=== PATIENT | male | born 1945 | race Caucasian/White ===

== ENCOUNTER 2016-03-12 08:23 | Emergency (ER) | payer OTHER ==
[~2016-03-12] VITALS: Ht 182.9 cm; Wt 77.1 kg
[~2016-03-12 08:23] MED LIST: ASPIRIN CHILDRE81 MG PO; ASPIRIN81 M4 PO; ATORVASTATIN CA80 M1 PO; BRILINTA90 M1 PO; FLEXERIL10 MG PO; HYGROTON 25MG T25 MG PO; INSULIN PUMP; LEVEMIR100 UNIT/1 SC; LIPITOR10 M1 PO; LOSARTAN POTAS100 MG PO; MOTRIN 600 MG600 MG PO; NAPROXEN500 M2 PO; NOVOLOG100 UNIT/1; NOVOLOG100 UNIT/2 SC; PERCOCET 325 MG1 TA2 PO; TOPROL XL25 M1 PO
[2016-03-12 08:30] VITALS: BP 146/68
--- NOTE | 2016-03-12 08:34 | ED SKIN/ALLERGY COMPLAINT ---
History of Present Illness General Chief Complaint: Laceration Procedure Stated Complaint: L HAND LAC Source: patient Exam Limitations: no limitations Vital Signs & Intake/Output Vital Signs & Intake/Output Vital Signs Date Time Temp Pulse Resp B/P Pulse O2 O2 Flow FiO2 Ox Delivery Rate 03/12 0830 97.2 84 18 146/68 99 Room Air Allergies Coded Allergies: NO KNOWN ALLERGIES (12/07/15) Reconcile Medications Aspirin (Children's Aspirin) 81 MG TAB.CHEW 1 TAB PO DAILY HEART HEALTH ( Reported) Atorvastatin Calcium 10 MG TABLET 1 TAB PO AD CHOLESTEROL (Reported) Chlorthalidone (Hygroton 25MG Tablet) 25 MG TABLET 1 TAB PO DAILY BP ( Reported) Insulin Aspart (Novolog) 100 UNIT/ML CARTRIDGE DIABETES (Reported) Insulin Aspart (Novolog) 100 UNIT/ML VIAL 0 UNITS SC Q4 diabetes while NPO: Sliding scale (low dose) blood sugar less than 80 mg/dl initiate hypoglycemia 80-150 mg /dl no coverage 151-200 mg/dl no coverage 201-250 mg/dl give 2 units 251-300 mg/dl give 3 units 301-350 mg/dl give 4 units 351-400 mg/dl give 5 units more than 400 mg/dl give 6 units and call doctor Insulin Detemir (Levemir) 100 UNIT/ML VIAL 6 UNITS SC BID diabetes while NPO patient needs to be on 6 units levemir BID Losartan Potassium 100 MG TABLET 1 TAB PO DAILY HEART (Reported) Metoprolol Succ XL (Toprol XL) 25 MG TAB 1 TAB PO DAILY heart health Ticagrelor (Brilinta) 90 MG TABLET 90 MG PO BID blood thinner Triage Note: C/O SKIN TEAR TO TOP OF LEFT HAND, OCCURRED LAST NIGHT, BLEEDING ON ARRIVAL, DSG APPLIED, (FLAP TEAR NOTED) PT ON ASPIRIN. Triage Nurses Notes Reviewed? yes HPI: THIS PATIENT is a 62-year-old male with past medical history including hypertension currently on aspirin and no other blood thinners who presented to the emergency department today for evaluation of a skin tear. Patient reported that he does not know exactly how he tore the skin on the top of his left hand, but reported that he noticed the bleeding last night. He reported the bleeding has been persistent since last night. He reported a sharp and throbbing pain in the top of his hand which she rates at a 4 out of 10. The pain is nonradiating and constant. Worse with movement of his hand. No palliative factors. The patient denied any wrist pain or elbow pain. He denied any fevers or chills. (RETA JAMIL PA-C) Past History Travel History Traveled to [place] past 21 day No Medical History Any Pertinent Medical History? 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 No (RETA JAMIL PA-C) Review of Systems Review of Systems Constitutional: Reports: no symptoms. EENTM: Reports: no symptoms. Respiratory: Reports: no symptoms. Cardiovascular: Reports: no symptoms. GI: Reports: no symptoms. Musculoskeletal: Reports: no symptoms. Skin: Reports: see HPI. Neurological/Psychological: Reports: no symptoms. All Other Systems: Reviewed and Negative (RETA JAMIL PA-C) Physical Exam Physical Exam General Appearance: well developed/nourished, no apparent distress, alert, awake Comments: Well-developed well-nourished person in no acute distress HEENT: Head normocephalic, moist mucous membranes Neck: Supple, no lymphadenopathy Back: Normal gait Respiratory: No respiratory distress. Speaking in full sentences Extremities: No edema, full range of motion Neuro: Alert and oriented x3 Psych: Mood affect normal, normal memory normal judgment. Skin: Warm and dry. Approximately 2 cm in diameter skin tear with avulsion of skin flap to the dorsum of the left hand with active bleeding. No stranding erythema or edema. Mildly tender to palpation (RETA JAMIL PA-C) Progress Differential Diagnosis: abscess/cellulitis, contact dermatitis, drug reaction, erythema multiforme, SKIN LACERATION, SKIN AVULSION, SKIN TEAR Plan of Care: This patient is a 70-year-old male who presented to the emergency department today for evaluation of a skin tear to the dorsum of his left hand. Active bleeding noted in the emergency department. I irrigated this wound extensively with normal saline after a Betadine prep. Xeroform was applied to the top of the wound and a sterile dressing was applied. Darlyn was used to create a pressure dressing. Pre-and post application of Coban neurologic testing to the left hand was normal. Counseled the patient on the importance of leaving this bandage intact over the next 24 hours. Counseled him on keeping the wound site clean and dry. Did also inform the patient that he needs to loosen the dressing return to the emergency department should he experience any numbness or tingling in his hand or should he notice any color changes to his fingers. This patient will be following up with primary care physician. Bleeding controlled here in the emergency department. Stable for discharge home. (RETA JAMIL PA-C) Departure Departure Disposition: HOME OR SELF CARE Condition: Stable Clinical Impression Primary Impression: Skin tear Referrals: MELONIE LOZANO,DIAMANTE Gómez (PCP/Family) Additional Instructions: Please keep this dressing on for approximately 24 hours. You may loosen the dressing if he notices any numbness or tingling in your fingers or if your fingers began to turn colors. Please keep the wound site clean and dry. Please call to make a follow-up appointment with her primary care physician. Return to the emergency department for any worsening symptoms or concerns. Departure Forms: Customer Survey General Discharge Information (RETA JAMIL PA-C) PA/SOLUTION SPECIALIST Co-Sign Statement Statement: ED Attending supervision documentation- x I saw and evaluated the patient. I have also reviewed all the pertinent lab results and diagnostic results. I agree with the findings and the plan of care as documented in the PA's/SOLUTION SPECIALIST's documentation. [] I have reviewed the ED Record and agree with the PA's/SOLUTION SPECIALIST's documentation. [] Additions or exceptions (if any) to the PAs/SOLUTION SPECIALIST's note and plan are summarized below: [] (ZOHAIB LOZANO,CAMRON)
[2016-03-12] MEDS ORDERED: ATORVASTATIN CA10 M1 PO (08:51)
== END 2016-03-12 08:53 ==
LOC: ERH 08:23
DX: S61.412A Laceration without foreign body of left hand, initial encounter (principal); X58.XXXA Exposure to other specified factors, initial encounter
CPT/HCPCS: 99282

== ENCOUNTER 2016-03-26 15:52 | Emergency (ER) | payer OTHER ==
[~2016-03-26] VITALS: Ht 177.8 cm; Wt 78.9 kg
[~2016-03-26 15:52] MED LIST changes: +ATORVASTATIN CA10 M1 PO
--- NOTE | 2016-03-26 16:47 | RADIOLOGY REPORT ---
EXAMINATION: XR CHEST CLINICAL INFORMATION: Shortness of breath. Cough. Congestion. COMPARISON: Chest x-ray 12/07/2015 TECHNIQUE: 2 views of the chest were obtained. FINDINGS: No change in position of pacemaker leads in right atrium and right ventricle. Heart size is normal. There are calcifications of thoracic aorta. There is no pulmonary vascular congestion. Lungs are clear. No pleural effusion. No pneumothorax. Compared to prior study there is been no change. IMPRESSION: No acute abnormality of the chest.
--- NOTE | 2016-03-26 17:10 | ED DYSPNEA/ASTHMA COMPLAINT ---
History of Present Illness General Chief Complaint: Dyspnea (COPD, CHF, Other) Stated Complaint: SOB Source: patient, old records Exam Limitations: no limitations Allergies Coded Allergies: NO KNOWN ALLERGIES (12/07/15) Reconcile Medications Albuterol Sulfate (Proair Hfa) 90 MCG HFA.AER.AD 2 PUF INH Q4-6 PRN PRN DYSPNEA Aspirin (Children's Aspirin) 81 MG TAB.CHEW 1 TAB PO DAILY HEART HEALTH ( Reported) Atorvastatin Calcium 10 MG TABLET 1 TAB PO AD CHOLESTEROL (Reported) Chlorthalidone (Hygroton 25MG Tablet) 25 MG TABLET 1 TAB PO DAILY BP ( Reported) Insulin Aspart (Novolog) 100 UNIT/ML CARTRIDGE DIABETES (Reported) Insulin Aspart (Novolog) 100 UNIT/ML VIAL 0 UNITS SC Q4 diabetes while NPO: Sliding scale (low dose) blood sugar less than 80 mg/dl initiate hypoglycemia 80-150 mg /dl no coverage 151-200 mg/dl no coverage 201-250 mg/dl give 2 units 251-300 mg/dl give 3 units 301-350 mg/dl give 4 units 351-400 mg/dl give 5 units more than 400 mg/dl give 6 units and call doctor Insulin Detemir (Levemir) 100 UNIT/ML VIAL 6 UNITS SC BID diabetes while NPO patient needs to be on 6 units levemir BID Losartan Potassium 100 MG TABLET 1 TAB PO DAILY HEART (Reported) Metoprolol Succ XL (Toprol XL) 25 MG TAB 1 TAB PO DAILY heart health Ticagrelor (Brilinta) 90 MG TABLET 90 MG PO BID blood thinner Triage Note: PT TO ED WITH C/O "I'VE BEEN BATTLING A COUGH, I SAW DR WILHELM, GAVE ME ANTIBIOTICS AND COUGH MEDICINE, NOW ON ANOTHER ANITBIOTIC AMOXICILLIN, THE LAST FEW DAYS I'VE FELT SHORT OF BREATH, I HAVE AN APPT WITH THE FOR NEXT .". Triage Nurses Notes Reviewed? yes Onset: Abrupt Duration: week(s): (1), constant Timing: recent history Severity: moderate Activities at Onset: activity Prior Episodes/Possible Cause: occasional episodes Associated Symptoms: DENIES HPI: 70-year-old male type I diabetic hypertension, CAD, pacemaker, high cholesterol presents to the emergency room for evaluation complaining of a nonproductive cough associated with shortness of breath over the past few days. He's currently on a course of amoxicillin and cough medicine which he reports no improvement. He is scheduled to see his primary care physician again next week. No fever no chills no chest pain no pain with inspiration no abdominal pain nausea vomiting or diarrhea. Patient denies any modifying factors or associated symptoms no history of similar symptoms in the past, he denies any leg swelling. (AHSAN BROWNLEE) Vital Signs & Intake/Output Vital Signs & Intake/Output Vital Signs Date Time Temp Pulse Resp B/P Pulse O2 O2 Flow FiO2 Ox Delivery Rate 03/26 1939 210/96 03/26 1850 61 210/90 03/26 1850 61 16 210/90 98 Room Air 03/26 1726 98 03/26 1722 Room Air 03/26 1612 98.8 60 20 168/71 100 Room Air Room Air Past History Travel History Traveled to [place] past 21 day No Medical History Any Pertinent Medical History? 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 No (AHSAN BROWNLEE) Review of Systems Review of Systems Constitutional: Reports: see HPI. All Other Systems: Reviewed and Negative Comments Review of systems: See HPI, All other systems negative. Constitutional, no chills no fever, no malaise HEENT: No visual changes no sore throat no congestion, Cardiovascular: No chest pain , no palpitation , no orthopnea no ankle swelling Skin, no jaundice no rashes, no change in skin Respiratory: dyspnea cough no sputum no hemoptysis GI: No nausea no vomiting, no diarrhea, no bloating/constipation : No dysuria No hematuria, Muscle skeletal: No joint pain, no back pain, no neck pain, Neurologic: No numbness no headache Psych: No stress no anxiety Heme/endocrine: No bruising no bleeding Immunology: No lymphadenopathy (AHSAN BROWNLEE) Physical Exam Physical Exam General Appearance: well developed/nourished, alert, awake Respiratory: normal breath sounds, chest non-tender, no respiratory distress Comments: Well-developed well-nourished person in no acute distress HEENT: Normal EENT exam; PERRL, EOMI, HEAD is atraumatic. moist mucous membranes. Neck: Supple, normal range of motion Back: Nontender, no CVA tenderness. Full range of motion Cardiovascular: Regular rate and rhythms no murmurs rubs or gallops Respiratory: Chest nontender.There were no bony deformities, no asymmetry. No respiratory distress. Patient speaking in full complete sentences. Excellent story wheezes no rhonchi no rales Abdomen: Soft, nontender nondistended, no appreciable organomegaly. Normal bowel sounds. No rebound/guarding, No appreciable enlargement of the abdominal aorta, No ascites. Extremity: No edema, full range of motion of extremities, normal and equal pulses bilaterally, 5 out of 5 strength noted to bilateral upper and lower extremities Neuro: Alert oriented x3, motor sensory normal, There were no obvious focal neurologic abnormalities. Skin: No appreciable rash on exposed skin, skin is warm and dry. Psych: Mood and affect is normal, memory and judgment is normal. Core Measures ACS in differential dx? Yes Severe Sepsis Present: No Septic Shock Present: No (RODGER BUSH,AHSAN) Progress Differential Diagnosis: asthma, AMI, bronchitis, costochondritis, CHF, COPD, musculoskeletal pain, pericarditis, pulmonary embolism, pneumonia, pneumothorax, unstable angina Diagnostic Imaging: Viewed by Me: Radiology Read. Discussed w/RAD: Radiology Read. Radiology Impression: PATIENT: JIM WASSERMAN PRESENT AGE: 70 PATIENT ACCOUNT NO: [id number] : 47 LOCATION: [facility] ORDERING PHYSICIAN: MICHAEL HONEYCUTT (TBS) SERVICE DATE: 03/26/16 EXAM TYPE: RAD - XRY-CHEST XRAY, PA AND LATERAL EXAMINATION: XR CHEST CLINICAL INFORMATION: Shortness of breath. Cough. Congestion. COMPARISON: Chest x-ray 12/07/2015 TECHNIQUE: 2 views of the chest were obtained. FINDINGS: No change in position of pacemaker leads in right atrium and right ventricle. Heart size is normal. There are calcifications of thoracic aorta. There is no pulmonary vascular congestion. Lungs are clear. No pleural effusion. No pneumothorax. Compared to prior study there is been no change. IMPRESSION: No acute abnormality of the chest. DICTATED BY: ALEX RODRIGUEZ MD DATE/TIME DICTATED:03/26/161640 RECORDS ANALYST:INES DATE/TIME TRANSCRIBED:03/26/161640 CONFIDENTIAL, DO NOT COPY WITHOUT APPROPRIATE AUTHORIZATION. <Electronically signed in Other Vendor System> SIGNED BY: ALEX RODRIGUEZ MD 03/26/161646 Initial ED EKG: A SENSED v PACED AT 60, NO ACUTE st SEGMENT CHANGES NORMAL AXIS Prior EKG: unchanged (11/2015) Rhythm Strip: paced (AHSAN BROWNLEE) Plan of Care: Orders Procedure Date/time Status TROPONIN LEVEL 03/26 172 Complete MAGNESIUM 03/26 172 Complete COMPREHENSIVE METABOLIC PANEL 03/26 172 Complete CBC WITHOUT DIFFERENTIAL 03/26 172 Complete B-TYPE NATRIURETIC PEP (BNP) 03/26 172 Complete EKG 03/26 1554 Active Laboratory Tests 03/26/16 1800: RBC 3.92 L, MCV 92.1, MCH 30.7, RDW 14.1, MPV 8.4, Gran % 39.3 L, Lymphocytes % 43.6, Monocytes % 12.1 H, Eosinophils % 4.5, Basophils % 0.5, Absolute Granulocytes 1.2 L, Absolute Lymphocytes 1.4, Absolute Monocytes 0.4, Absolute Eosinophils 0.1, Absolute Basophils 0, PUBS MCHC 33.3 03/26/16 1727: Anion Gap 7, Estimated GFR 47 L, BUN/Creatinine Ratio 26.7 H, Glucose 260 H, Calcium 8.8, Magnesium 2.1, Total Bilirubin 0.7, AST 33, ALT 38, Alkaline Phosphatase 85, Troponin I 0.03, Ezz-X-Hvlrhzaxubg Pept 5490 H, Total Protein 6.8, Albumin 3.9, Globulin 2.9, Albumin/Globulin Ratio 1.3 Labs ordered old records reviewed DuoNeb ordered 03/26/2016 6:25:32 PM patient reports symptoms have improved with breathing treatment labs pending Case discussed with Dr. Worley 03/26/2016 6:41:21 PM patient is feeling improved ambulatory around the ER without any dyspnea. Discussed with at length all his lab results creatinine is at baseline. Chest x-ray shows no evidence of CHF I advised follow-up with his primary care physician this week he has an appointment with his production repairer scheduled for next week. Prescription for pro-air inhaler provided advised return anytime sooner if his symptoms worsen answered all his questions he feels culpable this plan cleared for discharge Upon checking the patient's vitals on discharge patient is noted to be hypertensive he stated that he did take his metoprolol this morning as normal. He states his blood pressure normally is in the 160'S SYSTOLIC. Metoprolol 25 mg by mouth ordered case discussed Dr. Meir Moralez patient remains hypertensive and it was recommended to him at that time that he receive an IVfor antihypertensive medications. The patient denies any symptoms and is refusing IV I discussed with him the harm of elevated blood pressures and the potential risks which the patient is refusing he understands the potential risks he states he will follow-up his primary care physician tomorrow morning and he will check his blood pressures at home as he normally does he will return anytime sooner if any concerns however the patient is willing to sign out AGAINST MEDICAL ADVICE at this time (AHSAN BROWNLEE) Departure Departure Time of Disposition: 1840 Disposition: LEFT AGAINST MEDICAL ADVICE Condition: Stable Clinical Impression Primary Impression: Bronchitis Referrals: MELONIE LOZANO,DIAMANTE Gómez (PCP/Family) JADIEL LOZANO,VANE Rodriguez Additional Instructions: Follow-up with your primary care physician as well as production repairer Dr. Avery this week. Pro-air inhaler as discussed. Return anytime sooner if her symptoms worsen or have any other concerns Your prescription was sent to [facility] pharmacy. Departure Forms: Customer Survey General Discharge Information Prescriptions: Current Visit Scripts Albuterol Sulfate (Proair Hfa) 2 PUF INH Q4-6 PRN PRN DYSPNEA #1 INHAL (AHSAN BROWNLEE) PA/HARDNESS TESTER Co-Sign Statement Statement: ED Attending supervision documentation- [X] I saw and evaluated the patient. I have also reviewed all the pertinent lab results and diagnostic results. I agree with the findings and the plan of care as documented in the PA's/HARDNESS TESTER's documentation. [X] I have reviewed the ED Record and agree with the PA's/HARDNESS TESTER's documentation. [] Additions or exceptions (if any) to the PAs/HARDNESS TESTER's note and plan are summarized below: [] (MEIR LOZANO,GEORG[place]NA) Critical Care Note Critical Care Note Critical Care Time: non-applicable (AHSAN BROWNLEE)
[2016-03-26 18:07] LABS: ABSOLUTE BASOPHIL COUNT 0 /CUMM (0.0-0.2); ABSOLUTE EOSINOPHIL COUNT 0.1 /CUMM (0.0-0.7); ABSOLUTE GRANULOCYTE CT 1.2 /CUMM (1.4-6.5); ABSOLUTE LYMPH COUNT 1.4 /CUMM (1.2-3.4); ABSOLUTE MONOCYTE COUNT 0.4 /CUMM (0.10-0.60); BASOPHIL % 0.5 % (0.0-2.0); EOSINOPHIL % 4.5 % (0-5); GRANULOCYTE % 39.3 % (42.2-75.2); HEMATOCRIT 36.1 % (42-52); MEAN CORPUSCULAR HGB 30.7 PG (27.0-31.0); MEAN CORPUSCULAR HGB CONC 33.3 G/DL (33.0-37.0); MEAN CORPUSCULAR VOLUME 92.1 FL (80.0-94.0); MEAN PLATELET VOLUME 8.4 FL (7.4-10.4); PLATELET COUNT 165 /CUMM (130-400); RBC DISTRIBUTION WIDTH 14.1 % (11.5-14.5); RED BLOOD CELL CT 3.92 /CUMM (4.70-6.10); WHITE BLOOD CELL COUNT 3.1 /CUMM (4.8-10.8)
[2016-03-26] MEDS ORDERED: PROAIR HFA8.5 GM INH (18:42)
[2016-03-26 19:39] VITALS: BP 210/96
== END 2016-03-26 20:00 | disposition left against medical advice (07) ==
LOC: ERH 15:52
PROVIDERS: Physician Assistant Medical
DX: J40 Bronchitis, not specified as acute or chronic (principal); Z87.891 Personal history of nicotine dependence
CPT/HCPCS: 1263; 93005; 93010

== ENCOUNTER 2016-04-04 09:34 | Emergency (ER) | payer OTHER ==
[~2016-04-04] VITALS: Ht 177.8 cm; Wt 74.8 kg
[~2016-04-04 09:34] MED LIST changes: +PROAIR HFA8.5 GM INH
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
[2016-04-04 10:50] LABS: ABSOLUTE BASOPHIL COUNT 0 /CUMM (0.0-0.2); ABSOLUTE EOSINOPHIL COUNT 0.1 /CUMM (0.0-0.7); ABSOLUTE GRANULOCYTE CT 3.9 /CUMM (1.4-6.5); ABSOLUTE LYMPH COUNT 1.3 /CUMM (1.2-3.4); ABSOLUTE MONOCYTE COUNT 0.3 /CUMM (0.10-0.60); BASOPHIL % 0.8 % (0.0-2.0); MEAN CORPUSCULAR HGB 30.9 PG (27.0-31.0); MEAN CORPUSCULAR HGB CONC 33.6 G/DL (33.0-37.0); MEAN CORPUSCULAR VOLUME 91.8 FL (80.0-94.0); MEAN PLATELET VOLUME 8.2 FL (7.4-10.4); RBC DISTRIBUTION WIDTH 14.1 % (11.5-14.5); RED BLOOD CELL CT 4.03 /CUMM (4.70-6.10); WHITE BLOOD CELL COUNT 5.6 /CUMM (4.8-10.8)
[2016-04-04 11:11] LABS: GRANULOCYTE % 69.9 % (42.2-75.2); PLATELET COUNT 285 /CUMM (130-400)
--- NOTE | 2016-04-04 11:27 | RADIOLOGY REPORT ---
EXAMINATION: XR CHEST CLINICAL INFORMATION: Shortness of breath COMPARISON: 03/26/2016, 02/19/2016 TECHNIQUE: 2 views of the chest were obtained. FINDINGS: There is a dual-lead right-sided cardiac pacemaker with leads in unchanged position. Cardiomegaly is stable. The visualized contour of the thoracic aorta appears normal with minor calcification of the arch. No consolidation is visualized. There is mild platelike opacity at the left base which may reflect some atelectasis, the hemidiaphragms are equal in height, whereas previously the right hemidiaphragm had been slightly elevated relative to the left suggesting some associated left basilar volume loss as well. No pulmonary edema, pleural effusion, or pneumothorax. There are stable mild degenerative changes of the spine without evidence of acute osseous abnormality. IMPRESSION: Platelike opacity at the left base with some volume loss most suggestive of atelectasis.
--- NOTE | 2016-04-04 13:46 | CT SCAN REPORT ---
EXAMINATION: CT ANGIOGRAM OF THE CHEST WITH AND WITHOUT CONTRAST (CT PULMONARY ANGIOGRAM FOR PE) CLINICAL INFORMATION: Shortness of breath. Assess for pulmonary embolus. COMPARISON: Chest x-ray earlier 04/04/2016. TECHNIQUE: Prior to contrast administration, noncontrast localization images were obtained. Subsequently, multidetector volumetric imaging was performed from the thoracic inlet to below the diaphragms following the administration of 128 mL Optiray 350 intravenous contrast. No contrast reaction reported Sagittal, coronal, and MIP oblique sagittal reformatted images were obtained on the CT workstation, uploaded to PACS, and reviewed. Total exam dose-length product 336.59 mGy-cm FINDINGS: QUALITY OF STUDY/CONTRAST BOLUS: Satisfactory. PULMONARY ARTERIES: There are no central pulmonary emboli. There is decreased flow in the subsegmental pulmonary arteries in the right lower lobe. THORACIC AORTA: The aortic caliber the level of the pulmonary artery is 2.8 cm. There are atheromatous calcifications at the aortic arch. There is no evidence of aneurysm or dissection. LUNG: There are air bronchograms and opacification at the left lower lobe. Debris is noted in the proximal left lower lobe bronchus. There is bronchial wall thickening in the left lower lobe. There are areas of consolidation in the left lower lobe. The right lung appears well-aerated and clear. PLEURA: No pleural effusion or pneumothorax. MEDIASTINUM: The heart is normal in size there is no pericardial effusion. There is soft tissue fullness at the left hilum (image 32/65) which may be consistent with a lymph node. There is an AP window lymph node with short axis measuring 0.7 cm (image 22/65) and there is a precarinal lymph node with short axis measurement of 0.8 cm (image 24/65). There is narrowing of the trachea and bronchi in the coronal plane, which may be consistent with tracheomalacia. CHEST WALL/AXILLA: There is a dual lead pacemaker from the right chest. There is no hilar lymphadenopathy. OSSEOUS STRUCTURES: No acute or suspicious osseous abnormality. UPPER ABDOMEN: The adrenal glands are not enlarged. IMPRESSION: 1. There is debris within the left lower lobe bronchus, and there is bronchial wall thickening in the left lower lobe. There are areas of consolidation in the left lobe. There appears to be a left hilar lymph node and there are mildly prominent precarinal and mediastinal lymph nodes. 2. There is decreased flow in the subsegmental pulmonary arteries in the left lower lobe. No discrete filling defects are demonstrated to suggest acute pulmonary emboli. 3. The findings may be consistent with an aggressive infective or infiltrative process. Recommend pulmonology assessment. 4. This critical result was discussed with Kacey Nevarez by telephone on 04/04/2016 1:40 PM and it was ascertained that the content and urgency of the report was understood at the time of direct communication.
[2016-04-04] MEDS ORDERED: AVELOX400 M1 PO (14:49)
[2016-04-04 14:53] VITALS: BP 140/77
== END 2016-04-04 14:57 ==
LOC: ERH 09:34
PROVIDERS: Physician Assistant
DX: T17.908A Unspecified foreign body in respiratory tract, part unspecified causing other injury, initial encounter (principal); R07.9 Chest pain, unspecified
CPT/HCPCS: 1263; 93005; 93010

== ENCOUNTER 2017-03-18 11:52 | Inpatient (IN) | payer OTHER ==
[~2017-03-18] VITALS: Ht 182.9 cm; Wt 79.0 kg
[~2017-03-18 11:52] MED LIST changes: +AVELOX400 M1 PO; +KEFLEX500 M1 PO
--- NOTE | 2017-03-18 12:34 | ED ANKLE/FOOT INJURY COMPLAINT ---
See Addendum History of Present Illness General Chief Complaint: Lower Extremity Problems Stated Complaint: R FOOT SWELLING Source: patient, old records Exam Limitations: no limitations Vital Signs & Intake/Output Vital Signs & Intake/Output Vital Signs Date Time Temp Pulse Resp B/P B/P Pulse O2 O2 Flow FiO2 Mean Ox Delivery Rate 03/18 1413 97.5 79 18 168/74 100 Room Air 03/18 1258 Room Air 03/18 1203 97.0 78 16 125/53 96 Room Air Allergies Coded Allergies: NO KNOWN ALLERGIES (12/07/15) Reconcile Medications Albuterol Sulfate (Proair Hfa) 90 MCG HFA.AER.AD 2 PUF INH Q4-6 PRN PRN DYSPNEA Aspirin (Children's Aspirin) 81 MG TAB.CHEW 1 TAB PO DAILY HEART HEALTH ( Reported) Atorvastatin Calcium 10 MG TABLET 1 TAB PO AD CHOLESTEROL (Reported) Cephalexin (Keflex) 500 MG CAPSULE 1 CAP PO TID cellulitis Chlorthalidone (Hygroton 25MG Tablet) 25 MG TABLET 1 TAB PO DAILY BP ( Reported) Insulin Aspart (Novolog) 100 UNIT/ML CARTRIDGE DIABETES (Reported) Losartan Potassium 100 MG TABLET 1 TAB PO DAILY HEART (Reported) Triage Note: 71M RETURNS FOR R FOOT PAIN, SEEN A FEW DAYS AGO AND PLACED ON KEFLEX. STATES THE REDNESS IS THE SAME BUT NOW HE HAS BLACK ON THE GREAT TOE. STATES HE CAN STILL FEEL THE TOE. DENIES ITCHING OR DRAINAGE. AMBULATES SLOWLY WITH A CANE. AFEBRILE Triage Nurses Notes Reviewed? yes Occurred: last week Duration: week(s): (1), constant, continues in ED, getting worse Timing: single episode today Severity: moderate, severe Severity Numbers: 1 Pain/Injury Location: Right: Foot, Ankle. Method of Injury: unknown No Modifying Factors: none Associated Symptoms: swelling, redness, numbness HPI: 71-year-old male past medical history of insulin-dependent diabetes, attention, hyperlipidemia presents for reevaluation of pain swelling and redness in his right foot. Patient states that for the past week or so he's noticed gradually worsening pain swelling and redness in his right foot. He was seen here 3 days ago and diagnosed with cellulitis and started on cephalexin. Patient states that since then the pain and swelling HAVE worsened and started to travel up his ankle to the lower leg. He also reports an area of black skin on the great toe. He reports multiple open sores on the great toe and posterior ankle. The sores have not been healing. He also states that his toes are numb. No recent surgery or known trauma. He has not had any fevers. No history of DVT. He states that he is not having any pain because he is numb. He is able to walk with a cane. He's been taking the antibiotic as directed. (Toñito Stewart) Past History Travel History Traveled to [place] past 21 day No Medical History Any Pertinent Medical History? see below for history Neurological: NONE EENT: cataracts Cardiovascular: hypertension, hyperlipidemia, Pacemaker (R) Respiratory: bronchitis Gastrointestinal: NONE Hepatic: NONE Renal: NONE Musculoskeletal: fracture Psychiatric: NONE Endocrine: diabetes type 1 Blood Disorders: NONE Cancer(s): NONE RELEASE ENGINEER/Reproductive: NONE History of MRSA: No History of VRE: No History of CDIFF: No Surgical History Surgical History: non-contributory Psychosocial History Who do you live with Patient/Self Services at Home None What is your primary language Maori Tobacco Use: Never used Family History Hx Contributory? No (Toñito Stewart) Review of Systems Review of Systems Constitutional: Reports: no symptoms. EENTM: Reports: no symptoms. Respiratory: Reports: no symptoms. Cardiovascular: Reports: no symptoms. GI: Reports: no symptoms. Genitourinary: Reports: no symptoms. Musculoskeletal: Reports: see HPI, joint pain, joint swelling. Skin: Reports: see HPI, erythema. Neurological/Psychological: Reports: no symptoms. Hematologic/Endocrine: Reports: no symptoms. Immunologic/Allergic: Reports: no symptoms. All Other Systems: Reviewed and Negative (Toñito Stewart) Physical Exam Physical Exam General Appearance: well developed/nourished, no apparent distress, alert, awake Head: atraumatic, normal appearance Eyes: Bilateral: normal appearance, PERRL, EOMI. Ears, Nose, Throat: hearing grossly normal Neck: normal inspection, supple, full range of motion Cardiovascular/Respiratory: normal breath sounds, normal peripheral pulses, regular rate/rhythm, no respiratory distress Gastrointestinal: soft nontender Back: normal inspection, normal range of motion Leg/Knee/Thigh Left: normal range of motion, normal inspection Leg/Knee/Thigh Right: normal range of motion, normal inspection Ankle Left: normal inspection, normal range of motion Ankle Right: normal range of motion, swelling Foot Left: normal inspection, normal range of motion Foot Right: tenderness, erythema, infection, limited range of motion, soft tissue tenderness, swelling, the right foot is diffusely swollen and erythematous. The right great toe is swollen with overlying hematoma. Range of motion of the foot is reduced. Sensory supply to the toes is not intact. No focal fluctuant areas. There are multiple open nonhealing ulcerations on the foot. No purulent discharge. No macerated skin in the interweb spaces. Patient is able to walk with a cane. Neuro/Vascular: normal motor function, sensory deficit (right toes) Psychiatric: awake, alert, oriented x 3 Skin: intact, normal color, warm/dry (Black PA,Toñito) Progress Differential Diagnosis: DVT, cellulitis, septic arthritis, gout, fracture, dislocation, sprain, contusion, compartmental syndrome, tinea, peripheral vascular disease, osteomyelitis, gangrene, diabetic neuropathy Plan of Care: Orders Procedure Date/time Status Consistent Carbohydrate 1 03/18 D Active URINALYSIS 03/18 1612 Active LACTIC ACID 03/18 1608 Active Pathway - chart 03/18 1606 Active Patient Data 03/18 1606 Active Code Status 03/18 1606 Active Patient Data 03/18 1520 Active ED Holding Orders 03/18 1509 Active Admit to inpatient 03/18 1509 Active Vital Signs 03/18 1509 Active Code Status 03/18 1509 Complete Intake & Output 03/18 1313 Active BLOOD CULTURE 03/18 1308 Active TROPONIN LEVEL 03/18 1308 Complete LACTIC ACID 03/18 1308 Complete WESTERGREN SED RATE 03/18 1308 Complete C-REACTIVE PROTEIN 03/18 1308 Complete COMPREHENSIVE METABOLIC PANEL 03/18 1308 Complete CBC WITHOUT DIFFERENTIAL 03/18 1308 Complete EKG 03/18 1308 Active House Staff 03/18 UNK Active Lab Add-on Test 03/18 UNK Active Wound Care/Dressing 03/18 UNK Active VTE Mechanical Prophylaxis 03/18 UNK Active Vital Signs 03/18 UNK Active Intake & Output 03/18 UNK Active Elevate 03/18 UNK Active Laboratory Tests 03/18/18 1352: Anion Gap 16, Estimated GFR > 60, BUN/Creatinine Ratio 30.9 H, Glucose 201 H, Lactic Acid 2.0, Calcium 9.0, Total Bilirubin 0.9, AST 25, ALT 40, Alkaline Phosphatase 96, Troponin I 0.06, C-Reactive Prot, Quant > 9.0 H, Total Protein 6.8, Albumin 3.8, Globulin 3.0, Albumin/Globulin Ratio 1.3, CBC w Diff MAN DIFF ORDERED, RBC 3.97 L, MCV 94.7 H, MCH 31.6 H, MCHC 33.3, RDW 13.6, MPV 9.2, Gran % 84.5 H, Lymphocytes % 7.4 L, Monocytes % 6.8, Eosinophils % 1.0, Basophils % 0.3, Absolute Granulocytes 12.4 H, Absolute Lymphocytes 1.1 L, Absolute Monocytes 1.0 H, Absolute Eosinophils 0.2, Absolute Basophils 0, Platelet Estimate VERIFIED BY SMEAR, Normocytic RBCs VERIFIED, Normochromic RBCs VERIFIED, ESR Westergren 88 H Microbiology 03/18 1358 BLOOD: Blood Culture - RECD 03/18 1350 BLOOD: Blood Culture - RECD Patient seen and evaluated. He is a poorly controlled type I diabetic. He has significant diabetic neuropathy. He has multiple nonhealing sores on the right lower extremity. The right foot is diffusely swollen and erythematous. Patient was seen here 3 days ago diagnosed with cellulitis and placed on cephalexin. However since then the redness and swelling has worsened. He has failed outpatient treatment. He has an elevated white blood cell count of 15,000 with a left shift. His CRP is significant only elevated. Patient will be started on Unasyn and IV fluids. Cultures ordered. He will require podiatry consult, endocrine consult and possibly a vascular consult. Ultrasound is negative for DVT x-ray negative for fracture or signs of obvious osteomyelitis. Case discussed with Dr. Worley she agrees. Patient does use an insulin pump. Endocrine was paged for a consult. (Joey BUSH,Toñito) PATIENT SEEN AND EVALUATED BY RACHELLE. WILL NEED ADMISSION FOR DIABETIC FOOT, IV ABX , PODIATRY CONSULTATION. (Meir LOZANO,[facility]) Diagnostic Imaging: Viewed by Me: Radiology Read, Ultrasound. Discussed w/RAD: Radiology Read, Ultrasound. Radiology Impression: PATIENT: JIM WASSERMAN PRESENT AGE: 71 PATIENT ACCOUNT NO: [id number] : 47 LOCATION: [facility] ORDERING PHYSICIAN: Toñito BUSH SERVICE DATE: 03/18/17 EXAM TYPE: RAD - XRY- FOOT COMPLETE, R EXAMINATION: XR FOOT, RIGHT CLINICAL INFORMATION: Right great toe pain and swelling and redness. Presumptive diagnosis: Osteomyelitis fracture throughout. COMPARISON: Prior images are not currently available for comparison. TECHNIQUE: AP, lateral, and oblique views of the right foot. FINDINGS: Generalized soft tissue swelling is noted in the region of the great toe distal aspect with small calcifications present. There is absence of the medial base of the distal phalanx, however the margin is well corticated with no evidence of bony destructive changes. Degenerative changes are noted in the distal interphalangeal joints throughout the digits. No cortical defects are noted throughout the bony structures of the right foot to suggest acute fracture. Bony alignment is within normal limits other than the joint space narrowing of the distal phalanges of the digits. There are heavy vascular calcifications present throughout the right foot. IMPRESSION: 1. 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 Tiny flecks of calcification are noted within the soft tissues. 2. No radiographic evidence of acute fracture is noted at this time. DICTATED BY: Suzette Gilmore MD DATE/TIME DICTATED:03/18/171339 PEANUT GRADER:INES DATE/ TIME TRANSCRIBED:03/18/171339 CONFIDENTIAL, DO NOT COPY WITHOUT APPROPRIATE AUTHORIZATION., ATIENT: JIM WASSERMAN PRESENT AGE: 71 PATIENT ACCOUNT NO: [id number] : 47 LOCATION: [facility] ORDERING PHYSICIAN: Toñito BUSH SERVICE DATE: 03/18/17 EXAM TYPE: US - US-DUPLEX VENOUS EXTREM UNI EXAMINATION: US TRIPLEX LOWER EXTREMITY, RIGHT CLINICAL INFORMATION: Right lower extremity pain and swelling. COMPARISON: None TECHNIQUE: Color-flow triplex imaging with spectral analysis and compression Doppler were performed on the lower extremity. FINDINGS: Respiratory variation, normal compression and augmented flow are noted throughout the lower extremity. The visualized common femoral vein, superficial femoral vein, profunda femoral vein, popliteal vein and midcalf peroneal and posterior tibial venous segments show no evidence of deep venous thrombosis. There is no Fair's cyst. IMPRESSION: Normal triplex scan without evidence of deep venous thrombosis involving the lower extremity. DICTATED BY: aJke Oropeza DO DATE/TIME DICTATED:03/18/171452 PEANUT GRADER:INES DATE/TIME TRANSCRIBED:03/18/171452 CONFIDENTIAL, DO NOT COPY WITHOUT APPROPRIATE AUTHORIZATION. Initial ED EKG: atrial sensed ventricular paced rhythm (Toñito Stewart) Departure Departure Disposition: STILL A PATIENT Condition: Stable Clinical Impression Primary Impression: Cellulitis Qualifiers: Site of cellulitis: extremity Site of cellulitis of extremity: lower extremity Laterality: right Qualified Code: L03.115 - Cellulitis of right lower limb Referrals: Deep LOZANO,Estuardo Gómez (PCP/Family) Departure Forms: Customer Survey General Discharge Information Admission Note Spoke With: Valeriano LOZANO,Lu Gregg Documentation of Exam: Documentation of any treatments & extenuating circumstances including Concerns Regarding Discharge (functional status, medication knowledge or non-compliance, living conditions, etc.) that warrant an admission rather than observation: [ Patient has failed outpatient antibiotics. He's been on them for 3 days and the cellulitis has continued to spread. He has an elevated white blood cell count and lactic acidosis. He will require IV antibiotics, IV fluids, infectious disease follow-up, podiatry consult, endocrine consult, vascular consult, physical therapy, serial labs, medication adjustment] (Toñito Stewart) PA/MAKE READY WORKER Co-Sign Statement Statement: ED Attending supervision documentation- [X] I saw and evaluated the patient. I have also reviewed all the pertinent lab results and diagnostic results. I agree with the findings and the plan of care as documented in the PA's/MAKE READY WORKER's documentation. [X] I have reviewed the ED Record and agree with the PA's/MAKE READY WORKER's documentation. [] Additions or exceptions (if any) to the PAs/MAKE READY WORKER's note and plan are summarized below: [] (Meir LOZANO,Melany)
--- NOTE | 2017-03-18 13:50 | RADIOLOGY REPORT ---
EXAMINATION: XR FOOT, RIGHT CLINICAL INFORMATION: Right great toe pain and swelling and redness. Presumptive diagnosis: Osteomyelitis fracture throughout. COMPARISON: Prior images are not currently available for comparison. TECHNIQUE: AP, lateral, and oblique views of the right foot. FINDINGS: Generalized soft tissue swelling is noted in the region of the great toe distal aspect with small calcifications present. There is absence of the medial base of the distal phalanx, however the margin is well corticated with no evidence of bony destructive changes. Degenerative changes are noted in the distal interphalangeal joints throughout the digits. No cortical defects are noted throughout the bony structures of the right foot to suggest acute fracture. Bony alignment is within normal limits other than the joint space narrowing of the distal phalanges of the digits. There are heavy vascular calcifications present throughout the right foot. IMPRESSION: 1. 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 Tiny flecks of calcification are noted within the soft tissues. 2. No radiographic evidence of acute fracture is noted at this time.
[2017-03-18 14:20] LABS: ABSOLUTE BASOPHIL COUNT 0 /CUMM (0.0-0.2); ABSOLUTE EOSINOPHIL COUNT 0.2 /CUMM (0.0-0.7); ABSOLUTE GRANULOCYTE CT 12.4 /CUMM (1.4-6.5); ABSOLUTE LYMPH COUNT 1.1 /CUMM (1.2-3.4); BASOPHIL % 0.3 % (0.0-2.0); GRANULOCYTE % 84.5 % (42.2-75.2); HEMATOCRIT 37.6 % (42-52); MEAN CORPUSCULAR HGB 31.6 PG (27.0-31.0); MEAN CORPUSCULAR HGB CONC 33.3 G/DL (33.0-37.0); MEAN CORPUSCULAR VOLUME 94.7 FL (80.0-94.0); MEAN PLATELET VOLUME 9.2 FL (7.4-10.4); PLATELET COUNT 263 /CUMM (130-400); RBC DISTRIBUTION WIDTH 13.6 % (11.5-14.5); RED BLOOD CELL CT 3.97 /CUMM (4.70-6.10)
[2017-03-18 14:29] LABS: WHITE BLOOD CELL COUNT 14.7 /CUMM (4.8-10.8)
--- NOTE | 2017-03-18 14:57 | ULTRASOUND REPORT ---
EXAMINATION: US TRIPLEX LOWER EXTREMITY, RIGHT CLINICAL INFORMATION: Right lower extremity pain and swelling. COMPARISON: None TECHNIQUE: Color-flow triplex imaging with spectral analysis and compression Doppler were performed on the lower extremity. FINDINGS: Respiratory variation, normal compression and augmented flow are noted throughout the lower extremity. The visualized common femoral vein, superficial femoral vein, profunda femoral vein, popliteal vein and midcalf peroneal and posterior tibial venous segments show no evidence of deep venous thrombosis. There is no Fair's cyst. IMPRESSION: Normal triplex scan without evidence of deep venous thrombosis involving the lower extremity.
--- NOTE | 2017-03-18 15:33 | Admission Certification ---
Admission Certification Certification Statement - As attending physician, I certify that at the time of - admission, based on clinical presentation, severity of - symptoms, need for further diagnostic testing and - therapeutic interventions, and risk of adverse outcomes - without in-hospital treatment, in my clinical assessment, - this patient requires an acute hospital stay for a minimum - of two nights or longer. I have also considered psychsocial - factors such as support system, advanced age, financial - issues, cognitive issues, and failed out-patient treatments, - past re-admission history, safety of patient, and lack of - compliance as applicable. Specific rationale supporting this admission is: Diabetic with cellulitis, failed oral abx
--- NOTE | 2017-03-18 15:40 | History & Physical ---
Anne Obando MD 03/18/17 1539: General Information and [facility] MD Statement: I have seen and personally examined JIM WASSERMAN and documented this H&P. The patient is a 71 year old M who presented with a patient stated chief complaint of LEFT FOOT CELLULITIS/ ESCHAR Source of Information: patient Exam Limitations: no limitations History of Present Illness: Shouldn't is a 71-year-old male with a past medical history significant for hypertension, hyperlipidemia, pacemaker placed 4-5 years ago, diabetes type 1 since he was 14 years old currently on an insulin pump that comes to us for right foot erythema, edema of 10 days duration with the development of eschar/ dark blood underneath the skin for the past 1 day. The patient states that his first issue with the foot began one month ago when he had cracked skin of the heel. The patient went to his night coordinator Dr. Hernandez whom he sees regularly for diabetic neuropathy in his feet who told him to apply Neosporin to the cracked area and they've his feet and Bactine. The patient states that after this, the cracked area began to heal and his foot looked fine until 10 days ago when he began to turn red. The patient placed a call to his night coordinator who told him to come in and see him on Thursday but before he could, on Thursday this past week, the patient came into the [place] ED instead. During that visit, he was given Keflex 500 mg by mouth twice a day and told to follow-up with his night coordinator. The patient took the medication faithfully but that erythema remained and he woke up today with black eschar/blood build up underneath the skin of his right foot medially near the big toe. He denies ever injuring his foot or anything like this ever happening before. The patient has no vascular problems in the past. He does have diabetic neuropathy with loss of sensation in his feet that has caused him balance problems in recent years to the point that he requires assistance of a walker. Patient denies fevers, chills, nausea, vomiting, acute vision changes, abdominal pain, diarrhea, constipation, urinary symptoms. He denies hospitalizations for diabetes. Patient has no history of DVT. The patient states that his sugar control lately has not been good. He measures his sugar levels 4 times daily and recently has been seeing numbers as high as 300-400. He went to see his doctor, Dr. Adame and they worked to control his sugars with his insulin pump and also a change in eating. The patient also notes that he has had a cough for about a month productive of white phlegm. He was given a referral from his PCP to see Dr. Zheng for pulmonary evaluation. The patient lives alone in an apartment. His son lives close by in [place]. He denies current smoking but did smoke in the past for about 6 years less than one PPD, denies any drinking or drugs. Family history of a mother with heart attack at age 80. No family history of diabetes although the patient has had diabetes since age 14. NKDA Primary care doctor is Dr. Adame, Manager Drive is Dr. Avery, Concession Attendant is Dr. Vargas Pharmacy is [facility] in [place]. Allergies/Medications Allergies: Coded Allergies: NO KNOWN ALLERGIES (12/07/15) Compliance With Home Meds: GOOD Past History Travel History Traveled to [place] past 21 day No Medical History Neurological: NONE EENT: cataracts Cardiovascular: hypertension, hyperlipidemia, Pacemaker (R) Respiratory: bronchitis Gastrointestinal: NONE Hepatic: NONE Renal: NONE Musculoskeletal: fracture Psychiatric: NONE Endocrine: diabetes type 1 Blood Disorders: NONE Cancer(s): NONE SYSTEMS TECHNOLOGIST/Reproductive: NONE History of MRSA: No History of VRE: No History of CDIFF: No Surgical History Surgical History: non-contributory Past Family/Social History Family History Relations & Conditions if any MOTHER Relation not specified for: FH: myocardial infarction Psychosocial History Services at Home: None Primary Language: Trinidadian Functional Ability ADLs Independent: dressing, eating, toileting, bathing. Ambulation: independent IADLs Independent: shopping, housework, finances, food prep, telephone, transportation , medication admin. Review of Systems Review of Systems Constitutional: Reports: no symptoms. EENTM: Reports: no symptoms. Cardiovascular: Reports: no symptoms. Respiratory: Reports: cough, sputum production. GI: Reports: no symptoms. Genitourinary: Reports: no symptoms, see HPI, discharge, dysuria, frequency, hematuria, hesitation, nocturia, pain, urgency. Musculoskeletal: Reports: no symptoms. Skin: Reports: erythema, lesions. Neurological/Psychological: Reports: no symptoms. Hematologic/Endocrine: Reports: no symptoms. Immunologic/Allergic: Reports: no symptoms. Exam & Diagnostic Data Last 24 Hrs of Vital Signs/I&O Vital Signs Date Time Temp Pulse Resp B/P B/P Pulse O2 O2 Flow FiO2 Mean Ox Delivery Rate 03/18 1627 97.2 88 20 176/74 98 Room Air 03/18 1413 97.5 79 18 168/74 100 Room Air 03/18 1258 Room Air 03/18 1203 97.0 78 16 125/53 96 Room Air Intake & Output 03/18 1600 03/18 0800 03/18 0000 Intake Total Output Total Balance Patient 174 lb Weight Weight Reported by Patient Measurement Method Physical Exam General Appearance Alert, Oriented X3, Cooperative, No Acute Distress Skin No Rashes, black eschar on medial aspect of the right foot near toe that extends down foot. red erythema extending up to ankle. skin crack at heel. Skin Temp/Moisture Exam: Warm/Dry Sepsis Skin Exam (color): Normal for Ethnicity HEENT Atraumatic, EOMI, Mucous Membr. moist/pink Cardiovascular Regular Rate, Normal S1, Normal S2 Lungs Clear to Auscultation, Normal Air Movement Abdomen Normal Bowel Sounds, Soft, No Tenderness Neurological Normal Speech Extremities No Clubbing, No Cyanosis, No Edema, Normal Pulses Vascular Normal Pulses, Pulses Symmetrical Last 24 Hrs of Labs/[place]: Laboratory Tests 03/18/17 1352: Anion Gap 16, Estimated GFR > 60, BUN/Creatinine Ratio 30.9 H, Glucose 201 H, Hemoglobin A1c Pending, Lactic Acid 2.0, Calcium 9.0, Total Bilirubin 0.9, AST 25, ALT 40, Alkaline Phosphatase 96, Troponin I 0.06, C-Reactive Prot, Quant > 9.0 H, Total Protein 6.8, Albumin 3.8, Globulin 3.0, Albumin/Globulin Ratio 1.3 , CBC w Diff MAN DIFF ORDERED, RBC 3.97 L, MCV 94.7 H, MCH 31.6 H, MCHC 33.3, RDW 13.6, MPV 9.2, Gran % 84.5 H, Lymphocytes % 7.4 L, Monocytes % 6.8, Eosinophils % 1.0, Basophils % 0.3, Absolute Granulocytes 12.4 H, Absolute Lymphocytes 1.1 L, Absolute Monocytes 1.0 H, Absolute Eosinophils 0.2, Absolute Basophils 0, Platelet Estimate VERIFIED BY SMEAR, Normocytic RBCs VERIFIED, Normochromic RBCs VERIFIED, ESR Westergren 88 H Microbiology 03/18 1358 BLOOD: Blood Culture - RECD 03/18 1350 BLOOD: Blood Culture - RECD Assessment/Plan Assessment: Patient is a 71-year-old male with a past medical history significant for hypertension, hyperlipidemia, pacemaker placed 4-5 years ago, diabetes type 1 since he was 14 years old currently on an insulin pump that comes to us for right foot erythema, edema of 10 days duration with the development of eschar/ dark blood underneath the skin for the past 1 day. The patient recently has had poor glucose control and has seen his primary care physician Estuardo Adame MD for better control. The patient also sees a night coordinator for his diabetic feet which have caused him balance issues in the recent years. The patient came here 5 days ago and was given Keflex and told to follow-up outpatient. However his skin issues have worsened since then. The patient also complains of one-month history of productive cough. In the ED the patient's vitals were temperature 97.5, heart rate 73, respiratory rate 16, blood pressure 125/53, 96% oxygen saturation on room air. Pertinent labs were sodium 144, potassium 4, creatinine 1.1, glucose 201, lactic acid 2.0, CRP greater than 9, WBC 14.7, hemoglobin 12.5. X-ray was done and showed no bony erosive or distractive changes. Tiny flecks of calcification in the soft tissue. No evidence of acute fracture. Venous Doppler showed no evidence of DVT. EKG was unchanged from March 2016 with a rate of 62 normal sinus rhythm deep S waves in V3. Patient was given 1 dose of Unasyn in the ED. Blood cultures 2 were taken. A repeat lactic acid was put in for 4 PM. Patient was admitted to general medicine floors for evaluation and treatment of the following: #1 cellulitis of right foot #2 uncontrolled diabetes mellitus Plan #1 cellulitis of right foot Follow blood cultures Continue Unasyn 1.5 g every 6 hours MRI of the foot tomorrow for evidence of osteomyelitis Podiatry has been consulted and has stated that he will undergo amputation on Thursday We will start the patient nothing by mouth tomorrow at midnight and adjust his insulin accordingly Vascular surgery consult for tomorrow Follow-up repeat lactic acid 4 PM #2 uncontrolled diabetes mellitus Estuardo Adame MD, his PCP and sheetmetal worker has been consulted He has stated that we should give an immediate 14 units with discontinuation of his pump one hour later. He also states that we should start 10 units twice a day starting tomorrow and sliding scale NovoLog before dinner tonight and continuing before every meal thereafter. DNR DNI CC DIET As Ranked By This Provider Problem List: 1. Cellulitis of right foot Core Measures/Misc (11/09) Acute Coronary Syndrome ACS Diagnosis: No Congestive Heart Failure Congestive Heart Failure Diagnosis No Cerebrovascular Accident CVA/TIA Diagnosis: No VTE (View Protocol) VTE Risk Factors Acute Medical Illness No Mechanical VTE Prophylaxis d/t N/A MechProphylax Ordered No VTE Pharm Prophylaxis d/t NA PharmProphylax ordered Sepsis (View protocol) Sepsis Present: No Lu Bal MD 03/18/17 1634: Attending MD Review Statement Attending Statement Attending MD Statement: examined this patient, discuss w/resident/PA/BELT PRESS OPERATOR, agreed w/resident/PA/BELT PRESS OPERATOR, reviewed EMR data (avail), reviewed images Attending Assessment/Plan: 71-year-old male fairly extensive past medical history including type 1 diabetes on an insulin pump, diabetic retinopathy and nephropathy, hypertension, hyperlipidemia, pacemaker placement and an echo done and 04/11 that revealed an EF of 45-50%. He made an ER visit on March 15 with a swollen tender erythematous right foot and was prescribed by mouth Keflex. Despite taking the by mouth antibiotics, his foot has become progressively more painful and red. He was also worried that the right great toe now has an open area with drainage and that's what prompted him to come back. His white count has gone up from 9-14,000 with a left shift, he has a lactate level of 2 and on examination of the right great toe it appears more like a hematoma with some bloody drainage rather than a true necrotic eschar area. At this point I'll bring him into Gen med, treat him with IV Unasyn ER started after blood cultures were obtained. I'll call a formal endocrine consult as we have to stop the insulin pump and transition him over to subcutaneous insulin. I 'll continue his ARB, clarify whether he is on Norvasc or not and call a podiatry consult for the possibility of debridement. His ultrasound is negative for DVT we'll put him on DVT prophylaxis and follow-up. Will also get an arterial ultrasound and a vascular evaluation for the possibility of peripheral arterial disease given diabetes, hypertension, hyperlipidemia Kym LOZANO,Pallavi 03/18/171914: General Information and HPI Allergies/Medications Home Med list Amlodipine (Norvasc) 2.5 MG TABLET 1 TAB PO DAILY HYPERTENSION (Reported) Aspirin (Children's Aspirin) 81 MG TAB.CHEW 1 TAB PO DAILY HEART HEALTH ( Reported) Atorvastatin Calcium 10 MG TABLET 1 TAB PO THURSDAY TO THURSDAY CHOLESTEROL ( Reported) Atorvastatin Calcium 10 MG TABLET 1 TAB PO AD CHOLESTEROL (Reported) Fluticasone Furoate (Flonase Sensimist) 27.5 MCG/ACTUATION SPRAY.SUSP 2 PUF NS DAILY ALLERGY (Reported) Insulin Aspart (Novolog) 100 UNIT/ML CARTRIDGE DIABETES (Reported) Losartan (Cozaar) 100 MG TABLET 1 TAB PO DAILY HYPERTENSION (Reported) Metoprolol Succ XL (Toprol XL) 25 MG TAB 1 TAB PO DAILY HYPERTENSION ( Reported) Pregabalin (Lyrica) 50 MG CAPSULE 1 CAP PO TID NEUROPATHY (Reported) Resident Review Statement Resident Statement: examined this patient, discussed with psychology intern, agreed with psychology intern, discussed with family, reviewed EMR data (avail) Other Findings: Patient is a 71 YO M with PMH significant for Type I DM (diagnosed 12yrs ago) on insulin pump follows Estuardo Adame MD, 2nd degree heart block requiring PPM follows Dr. Avery, hypertension, hyperlipidemia, and NSTEMI (EF 45-50%) presented to [facility] with progressive worsening of right lower extremity erythema with new onset discoloration. Patient has been following up with night coordinator. His last visit is 10 days ago for an open wound and started on Neosporin powder. Last Thursday patient came to ER for new onset edema around the wound, discharged on Keflex 500 3 times a day. Despite antibiotic course is erythema and swelling got worse which prompted him to come to ER today. He reports high blood sugars for the past 2 weeks, denies any weakness, fevers, nausea/vomiting/diarrhea. He denies any new-onset chest pain, shortness of breath. He had been having cough with whitish phlegm production and has been trying to go to Dr. Lloyd. He is reportedly compliant with all his medications. No known drug allergies Medications Flonase, metoprolol succinate 25 daily, Lyrica 50 mg 3 times a day, amlodipine 2.5 daily, Humalog pump, atorvastatin 10 mg Thursday to Thursday, losartan 100 mg daily. Family history - mother with CA in her 80s Social Smokes less than a pack per day, no alcohol/drug. Use Surgical noncontributory Vital signs at presentation afebrile, blood pressure 168/74 mmHg, heart rate 79, saturating well on room air Physical examination alert oriented 3, HEENT: PERRLA, no lymphadenopathy, heart S1-S2 normal, lungs clear breath sounds, abdomen nontender to palpation, lower extremities - right- sided pulses 2+, left leg edema with erythema extending up to mid left leg with discoloration in the great toe. Warm to touch with 1+ pulsations of dorsalis pedis, 2+ pulses in tibialis posterior. Labs White count 14.7 with granulocytosis, ESR 88, CRP 9, pending HbA1c and UA. Imaging venous Doppler ruled out DVT Foot x-ray did show absence of medial base of the distal phalanx of great toe which appears chronic with well-defined cortical margin. Tiny flecks of calcifications are noted within the soft tissues. Doppler arterial pending Assessment Patient is 71-year-old with chronic long-standing diabetic obligated with nephropathy, retinopathy, significant cardiac history presented with progressively worsening edema/swelling of the right lower extremity with superadded discoloration on the great toe. Vital signs are significant for blood pressure of 168/74 mmHg, afebrile. Physical examination is significant for bleeding from the right great toe, warm to touch, 1+ dorsalis pedis pulsations, no sensations in the great toe. Sensations in bilateral lower extremeties are intact (except for the right great toe). Labs today show white count is of 14 CRP 9, ESR 88 imaging ruled out DVT, pending arterial Doppler arterial and MRI of foot. EKG - HR 80, atiral sensed ventricular paced rhythm, no new changes. Differentials Cellulitis/necrotizing fasciitis/osteomyelitis Problem list 1. Cellulitis of right lower extremity in a diabetic patient status post failed outpatient antimicrobial therapy 2. Type 1 diabetes mellitus 3. Second-degree heart block status post permanent pacemaker 4. Hypertension 5. Hyperlipidemia 6. History of an NSTEMI with last echo showing EF 45-50% () 7. Chronic productive cough with whitish phlegm production in exsmoker Admitted to general medicine floor Cellulitis of right lower extremity with discoloration of great toe I think this represents worsening of infection with bleeding from his right great toe and significant necrosis of soft tissue, ? Bone involvement. Although DVT is ruled out with a negative Doppler's, I'm concerned about a peripheral artery disease in a long-standing diabetic patient. We will obtain Doppler arterial, vascular consult for further evaluation. Podiatry for debridement. We will start the patient on IV Unasyn as he already failed outpatient Keflex treatment. Follow up with blood cultures. Further evaluation with MRI of foot understand extent of necrosis/involvement of bone. I highly suspect bone involvement given his elevated ESR and CRP. Type 1 diabetes mellitus Patient is on insulin pump since long time and follows Dr. Adame (primary care physician). For the past 2 weeks he has been having high blood sugars. We will discontinue the pump after giving 14 units of Levemir stat. We will start the patient at 10 units twice a day from tomorrow onwards. Estuardo Adame MD consulted and followed the recommendations for sliding scale. History of hypertension Continue amlodipine 2.5 mg daily Diabetic neuropathy Continue Neurontin 50 mg TID History of NSTEMI with EF 45-50% Continue metoprolol succinate 25 daily, losartan 100 mg daily, aspirin 81 mg, atorvastatin 10 mg Thursday to Thursday. DVT prophylaxis Subcutaneous heparin CODE STATUS DNR/DNI
--- NOTE | 2017-03-18 17:34 | Cons- Endocrinology ---
General Information and HPI Consulting Request Date of Consult: 03/18/17 Requested By: medical team Reason for Consult: Uncontrolled diabetes type 1 Source of Information: patient, old records Exam Limitations: no limitations History of Present Illness: This 71-year-old male with a known history of diabetes type 1 and severe neuropathy into the emergency room because of a cellulitis and an infection in his right foot. He was in the emergency room yesterday and was given an antibiotic. However the foot got worse and he came back today. The patient also has turned blue as well as some irritability or on the plantar surface of his foot. His right lower leg is swollen. The patient has numbness of his feet so he does not complain of any foot pain. The patient is on the insulin pump. His midnight basal was 0.8 and his 7 AM patient was 0.9. He does not the bolus wizard. He takes 1 unit for every 50 points above 150 and 1 unit for every 10 g of carbohydrate. He does do calculations in his head. He notes that his sugars have been running high. He denies any chills nausea or vomiting. Allergies/Medications Allergies: Coded Allergies: NO KNOWN ALLERGIES (12/07/15) Home Med List: Albuterol Sulfate (Proair Hfa) 90 MCG HFA.AER.AD 2 PUF INH Q4-6 PRN PRN DYSPNEA Aspirin (Children's Aspirin) 81 MG TAB.CHEW 1 TAB PO DAILY HEART HEALTH ( Reported) Atorvastatin Calcium 10 MG TABLET 1 TAB PO AD CHOLESTEROL (Reported) Cephalexin (Keflex) 500 MG CAPSULE 1 CAP PO TID cellulitis Chlorthalidone (Hygroton 25MG Tablet) 25 MG TABLET 1 TAB PO DAILY BP ( Reported) Insulin Aspart (Novolog) 100 UNIT/ML CARTRIDGE DIABETES (Reported) Losartan Potassium 100 MG TABLET 1 TAB PO DAILY HEART (Reported) Current Medications: Current Medications Sig/Coral Start time Last Medication Dose Route Stop Time Status Admin Ampicillin Sodium/ 0 .STK-MED ONE 03/18 1447 DC Sulbactam Sodium .ROUTE Ampicillin Sodium/ 3,000 MG ONCE ONE 03/18 1430 DC 03/18 Sulbactam Sodium IV 03/18 1459 1449 Sodium Chloride 100 ML Sodium Chloride 1,000 ML BOLUS ONE 03/18 1445 DC 03/18 IV 03/18 1544 1449 Past History Travel History Traveled to [place] past 21 day No Medical History Neurological: NONE EENT: cataracts Cardiovascular: hypertension, hyperlipidemia, Pacemaker (R) Respiratory: bronchitis Gastrointestinal: NONE Hepatic: NONE Renal: NONE Musculoskeletal: fracture Psychiatric: NONE Endocrine: diabetes type 1 Blood Disorders: NONE Cancer(s): NONE 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 Ambulation: independent IADLs Independent: shopping, housework, finances, food prep, telephone, transportation , medication admin. Exam & Diagnostic Data Last 24 Hrs of Vital Signs/I&O Vital Signs Date Time Temp Pulse Resp B/P B/P Pulse O2 O2 Flow FiO2 Mean Ox Delivery Rate 03/18 1627 97.2 88 20 176/74 98 Room Air 03/18 1413 97.5 79 18 168/ 100 Room Air 03/18 1258 Room Air 03/18 1203 97.0 78 16 125/53 96 Room Air Intake & Output 03/18 1600 03/18 0800 03/18 0000 Intake Total Output Total Balance Patient 174 lb Weight Weight Reported by Patient Measurement Method Vital Signs Date Time Temp Pulse Resp B/P B/P Pulse O2 O2 Flow FiO2 Mean Ox Delivery Rate 03/18 1627 97.2 88 20 176/74 98 Room Air 03/18 1413 97.5 79 18 168/74 100 Room Air 03/18 1258 Room Air 03/18 1203 97.0 78 16 125/53 96 Room Air Intake & Output 03/18 1600 03/18 0800 03/18 0000 Intake Total Output Total Balance Patient 174 lb Weight Weight Reported by Patient Measurement Method Physical Exam General Appearance: alert, awake, comfortable Head: normal appearance Neck: normal inspection Respiratory: normal breath sounds Cardiovascular: regular rate/rhythm Gastrointestinal: soft, non-tender Extremities: right lower leg swelling. dorsum of the right foot. Swollen. The right foot. There is a cut on his right heel which appears to be healing. Labs/[place] Results: Laboratory Tests 03/18 1352 Chemistry Sodium (137 - 145 mmol/L) 144 Potassium (3.5 - 5.1 mmol/L) 4.0 Chloride (98 - 107 mmol/L) 100 Carbon Dioxide (22 - 30 mmol/L) 27 Anion Gap (5 - 16) 16 BUN (9 - 20 mg/dL) 34 H Creatinine (0.7 - 1.2 mg/dL) 1.1 Estimated GFR (>60 ml/min) > 60 BUN/Creatinine Ratio (7 - 25 %) 30.9 H Glucose (65 - 99 mg/dL) 201 H Hemoglobin A1c (4.2 - 5.8 %) Pending Lactic Acid (0.7 - 2.1 mmol/L) 2.0 Calcium (8.4 - 10.2 mg/dL) 9.0 Total Bilirubin (0.2 - 1.3 mg/dL) 0.9 AST (17 - 59 U/L) 25 ALT (21 - 72 U/L) 40 Alkaline Phosphatase (< 127 U/L) 96 Troponin I (<0.11 ng/ml) 0.06 C-Reactive Prot, Quant (<1.0 mg/dL) > 9.0 H Total Protein (6.3 - 8.2 g/dL) 6.8 Albumin (3.5 - 5.0 g/dL) 3.8 Globulin (1.9 - 4.2 gm/dL) 3.0 Albumin/Globulin Ratio (1.1 - 2.2 %) 1.3 Hematology CBC w Diff MAN DIFF ORDERED WBC (4.8 - 10.8 /CUMM) 14.7 H RBC (4.70 - 6.10 /CUMM) 3.97 L Hgb (14.0 - 18.0 G/DL) 12.5 L Hct (42 - 52 %) 37.6 L MCV (80.0 - 94.0 FL) 94.7 H MCH (27.0 - 31.0 PG) 31.6 H MCHC (33.0 - 37.0 G/DL) 33.3 RDW (11.5 - 14.5 %) 13.6 Plt Count (130 - 400 /CUMM) 263 MPV (7.4 - 10.4 FL) 9.2 Gran % (42.2 - 75.2 %) 84.5 H Lymphocytes % (20.5 - 51.1 %) 7.4 L Monocytes % (1.7 - 9.3 %) 6.8 Eosinophils % (0 - 5 %) 1.0 Basophils % (0.0 - 2.0 %) 0.3 Absolute Granulocytes (1.4 - 6.5 /CUMM) 12.4 H Absolute Lymphocytes (1.2 - 3.4 /CUMM) 1.1 L Absolute Monocytes (0.10 - 0.60 /CUMM) 1.0 H Absolute Eosinophils (0.0 - 0.7 /CUMM) 0.2 Absolute Basophils (0.0 - 0.2 /CUMM) 0 Platelet Estimate (ADEQUATE) VERIFIED BY SMEAR Normocytic RBCs VERIFIED Normochromic RBCs VERIFIED ESR Westergren (0 - 10 MM) 88 H Assessment/Plan Assessment/Plan Patient has evidence of cellulitis of the right foot with bluish discoloration of his right great toe and also discoloration on the plantar surface of his foot. He has type 1 diabetes with severe neuropathy. We need to begin Levemir 14 units stat and then 10 units twice a day beginning tomorrow. The patient should also be placed on sliding scale NovoLog before meals. Sliding scale NovoLog before meals should be 80-150 give 4 units NovoLog , 151-200 give 5 units NovoLog, 201-250 give 6 units NovoLog, 251-300 give 7 units NovoLog, 301-350 give 8 units NovoLog, 351-400 give 9 units NovoLog. A separate bedtime sliding-scale NovoLog should be written. Sliding scale NovoLog at bedtime should be less than 250 give no insulin, 251-300 give 2 units NovoLog, 301-50 give 3 units NovoLog, 351-400 give 4 units NovoLog. If the patient is made nothing by mouth tonight for surgery in the morning than we should begin D5 half-normal saline at 75 mL/h at midnight. We should also place the patient on NovoLog coverage every 4 hours while nothing by mouth. NovoLog coverage every 4 hours while nothing by mouth should be less than 150 give no insulin, 151-200 give 3 units NovoLog, 201-250 give 4 units, 251-300 give 5 units NovoLog, 301-350 give 6 units NovoLog, 351-400 give 7 units NovoLog. Consult Acknowledgment - Thank you for your consult request.
[2017-03-18] MEDS ORDERED: NORVASC2.5 M1 PO ×2 (17:35→17:36)
[2017-03-18] MEDS ORDERED: TOPROL XL25 M2 PO (17:35)
[2017-03-18] MEDS ORDERED: LYRICA50 M1 PO ×2 (17:35→17:36)
[2017-03-18] MEDS ORDERED: TOPROL XL25 M1 PO (17:36)
[2017-03-18] MEDS ORDERED: FLONASE SENSIM9.9 ML NS (17:42)
[2017-03-18] MEDS ORDERED: COZAAR100 M1 PO (17:42)
[2017-03-18] MEDS ORDERED: ATORVASTATIN CA10 M1 PO (17:44)
[2017-03-18 22:49] VITALS: BP 168/00
[2017-03-19 05:22] VITALS: BP 128/62
--- NOTE | 2017-03-19 06:59 | ULTRASOUND REPORT ---
EXAMINATION: NONINVASIVE ASSESSMENT OF THE ARTERIES OF BOTH LOWER EXTREMITIES INTERPRETING VASCULAR \T\ INTERVENTIONAL RADIOLOGIST: Tavo Albrecht MD CLINICAL INFORMATION: Diabetic foot ulcer TECHNIQUE: Bilateral lower extremity duplex ultrasound was performed with velocity measurements and waveform analysis in the common femoral arteries, profunda femoris arteries, proximal mid and distal superficial femoral arteries, popliteal arteries and tibial vessels. This study was performed only at rest. COMPARISON: CT abdomen pelvis 01/07/2016 FINDINGS: Velocities in cm/sec and phasicity as well as the presence of plaque are reported below. Bilaterally, vessels are heavily calcified and there is monophasic flow throughout both lower extremities. RIGHT LEG: Common Femoral: 229/21 Profunda Femoris: Proximal SFA: 101/17 Mid SFA: 107/21 Distal SFA: 119/2 Popliteal: 105/19 Anterior tibial: 83/19 Peroneal: 122/23 Posterior tibial: No flow Dorsalis pedis: 100/20 LEFT LEG: Common Femoral: 190/16 Profunda Femoris: 117/0 Proximal SFA: 109/12 Mid SFA: 175/12 Distal SFA: 188/13 Popliteal: 125/12 Anterior tibial: 88/4 Peroneal: 102/0 Posterior tibial: No flow Dorsalis pedis: 82/[address], heavily calcified plaque in the aorta and iliac vessels was seen but no focal stenoses are identified. The current study demonstrates some areas of velocity acceleration, for example in the common femoral arteries and mid and distal SFA on the left. Peripheral vascular disease is present as indicative by monophasic flow and occluded posterior tibial arteries. Further anatomic definition could be obtained with CT angiography. IMPRESSION: Peripheral vascular disease is present as indicative by monophasic flow and occluded posterior tibial arteries. Further anatomic definition could be obtained with CT angiography.
--- NOTE | 2017-03-19 08:13 | PN- Diabetes ---
Assessment/Plan Assessment: This patient has type 1 diabetes mellitus and presents with a cellulitis of the right foot and necrosis of the right great toe. He is somewhat confused and cannot recall accurately the events of last night. As an outpatient he was also complaining of difficulty with his memory. The patient was taken off the insulin pump last night and given 14 units of Levemir. He does not know if he ate dinner last night are if he had anything after dinner. He had low sugar this morning with a sugar of less than 50. He is on IV antibiotic Plan: Suggest reduce Levemir to 8 units twice a day today. Also revise his before meals sliding scale NovoLog. Sliding scale NovoLog before meals should be 80-150 give 3 units NovoLog, 151-200 give 4 units NovoLog , 201-250 give 5 units NovoLog, 251-300 give 6 units NovoLog, 301-350 give 7 units NovoLog, 351-400 give 8 units NovoLog. The separate bedtime sliding scale NovoLog remain as written. Objective Last 24 Hrs of Vital Signs/I&O Vital Signs Date Time Temp Pulse Resp B/P B/P Pulse O2 O2 Flow FiO2 Mean Ox Delivery Rate 03/19 521 97.9 82 20 128/62 96 Room Air 03/18 2248 Room Air 03/18 2248 98.4 80 20 168/00 92 Room Air 03/18 2230 174/03/188 20003/18 98.2 92 18 205/90 95 Room Air 03/18 2000 92 205/90 03/18 1627 97.2 88 20 176/74 98 Room Air 03/18 1413 97.5 79 18 168/74 100 Room Air 03/18 1258 Room Air 03/18 1203 97.0 78 16 125/53 96 Room Air Intake & Output 03/19 1600 03/19 0800 03/19 0000 Intake Total 960 Output Total Balance 960 Intake, Oral 960 Patient 174 lb Weight Weight Reported by Patient Measurement Method Vital Signs Date Time Temp Pulse Resp B/P B/P Pulse O2 O2 Flow FiO2 Mean Ox Delivery Rate 03/19 521 97.9 82 20 128/62 96 Room Air 03/18 2248 Room Air 03/18 2248 98.4 80 20 168/00 92 Room Air 03/18 2230 174/74 03/18 2208 200/90 01/24 2119 98.2 92 18 205/90 95 Room Air 03/18 2000 92 205/90 03/18 1627 97.2 88 20 176/74 98 Room Air 03/18 1413 97.5 79 18 168/74 100 Room Air 03/18 1258 Room Air 03/18 1203 97.0 78 16 125/53 96 Room Air Intake & Output 03/19 1600 03/19 0800 03/19 0000 Intake Total 960 Output Total Balance 960 Intake, Oral 960 Patient 174 lb Weight Weight Reported by Patient Measurement Method Physical Exam General Appearance: alert, awake, mildly confused Neck: normal inspection Cardiovascular: regular rate/rhythm Abdomen: normal bowel sounds Extremities: normal inspection Current Medications: Current Medications Sig/Coral Start time Last Medication Dose Route Stop Time Status Admin Acetaminophen 650 MG Q8P PRN 03/18 2145 AC PO Amlodipine Besylate 2.5 MG DAILY 03/18 1744 AC 03/18 PO 2000 Ampicillin Sodium/ 1,500 MG Q6 03/18 2359 AC 03/19 Sulbactam Sodium IV 0502 Sodium Chloride 100 ML Ampicillin Sodium/ 0 .STK-MED ONE 03/18 1447 CAN Sulbactam Sodium .ROUTE Ampicillin Sodium/ 3,000 MG ONCE ONE 03/18 1430 DC 03/18 Sulbactam Sodium IV 03/18 1459 1449 Sodium Chloride 100 ML Aspirin 0 .STK-MED ONE 03/18 2100 DC PO Aspirin 81 MG DAILY 03/18 1733 AC 03/18 PO 2116 Atorvastatin Calcium 10 MG 1700 03/18 1745 AC 03/18 PO 2116 Heparin Sodium 5,000 UNIT Q8 03/18 2200 AC (Porcine) SC Insulin Aspart 0 TIDAC 03/19 0800 AC SC Insulin Aspart 0 AT BEDTIME 03/18 2200 AC SC Insulin Detemir 10 UNITS BID 03/19 1000 AC SC Insulin Detemir 14 UNITS ONCE ONE 03/18 1800 DC 03/18 SC 03/18 1801 1807 Losartan Potassium 100 MG DAILY 03/19 1000 AC PO Metoprolol Succinate 25 MG DAILY 03/19 1000 AC PO Morphine Sulfate 0 .STK-MED ONE 03/18 2205 DC .ROUTE Morphine Sulfate 2 MG Q6P PRN 03/18 2200 AC 03/18 IV 2203 Pregabalin 0 .STK-MED ONE 03/18 2100 DC PO Pregabalin 50 MG TID 03/18 1737 AC 03/19 PO 0007 Sodium Chloride 1,000 ML BOLUS ONE 03/18 1445 DC 03/18 IV 03/18 1544 1449 Tramadol HCl 50 MG Q6P PRN 03/18 2145 AC PO Findings Pertinent Lab/[place] Results: Laboratory Tests 03/19 03/19 03/18 0705 0655 1608 Chemistry Sodium Pending Potassium Pending Chloride Pending Carbon Dioxide Pending Anion Gap Pending BUN Pending Creatinine Pending BUN/Creatinine Ratio Pending Lactic Acid Pending Cancelled Hematology CBC w Diff Pending WBC Pending RBC Pending Hgb Pending Hct Pending MCV Pending MCH Pending MCHC Pending RDW Pending Plt Count Pending MPV Pending 03/18 1352 Chemistry Sodium (137 - 145 mmol/L) 144 Potassium (3.5 - 5.1 mmol/L) 4.0 Chloride (98 - 107 mmol/L) 100 Carbon Dioxide (22 - 30 mmol/L) 27 Anion Gap (5 - 16) 16 BUN (9 - 20 mg/dL) 34 H Creatinine (0.7 - 1.2 mg/dL) 1.1 Estimated GFR (>60 ml/min) > 60 BUN/Creatinine Ratio (7 - 25 %) 30.9 H Glucose (65 - 99 mg/dL) 201 H Hemoglobin A1c (4.2 - 5.8 %) Pending Lactic Acid (0.7 - 2.1 mmol/L) 2.0 Calcium (8.4 - 10.2 mg/dL) 9.0 Total Bilirubin (0.2 - 1.3 mg/dL) 0.9 AST (17 - 59 U/L) 25 ALT (21 - 72 U/L) 40 Alkaline Phosphatase (< 127 U/L) 96 Troponin I (<0.11 ng/ml) 0.06 C-Reactive Prot, Quant (<1.0 mg/dL) > 9.0 H Total Protein (6.3 - 8.2 g/dL) 6.8 Albumin (3.5 - 5.0 g/dL) 3.8 Globulin (1.9 - 4.2 gm/dL) 3.0 Albumin/Globulin Ratio (1.1 - 2.2 %) 1.3 Hematology CBC w Diff MAN DIFF ORDERED WBC (4.8 - 10.8 /CUMM) 14.7 H RBC (4.70 - 6.10 /CUMM) 3.97 L Hgb (14.0 - 18.0 G/DL) 12.5 L Hct (42 - 52 %) 37.6 L MCV (80.0 - 94.0 FL) 94.7 H MCH (27.0 - 31.0 PG) 31.6 H MCHC (33.0 - 37.0 G/DL) 33.3 RDW (11.5 - 14.5 %) 13.6 Plt Count (130 - 400 /CUMM) 263 MPV (7.4 - 10.4 FL) 9.2 Gran % (42.2 - 75.2 %) 84.5 H Lymphocytes % (20.5 - 51.1 %) 7.4 L Monocytes % (1.7 - 9.3 %) 6.8 Eosinophils % (0 - 5 %) 1.0 Basophils % (0.0 - 2.0 %) 0.3 Absolute Granulocytes (1.4 - 6.5 /CUMM) 12.4 H Absolute Lymphocytes (1.2 - 3.4 /CUMM) 1.1 L Absolute Monocytes (0.10 - 0.60 /CUMM) 1.0 H Absolute Eosinophils (0.0 - 0.7 /CUMM) 0.2 Absolute Basophils (0.0 - 0.2 /CUMM) 0 Platelet Estimate (ADEQUATE) VERIFIED BY SMEAR Normocytic RBCs VERIFIED Normochromic RBCs VERIFIED ESR Westergren (0 - 10 MM) 88 H
[2017-03-19 08:30] LABS: ABSOLUTE BASOPHIL COUNT 0 /CUMM (0.0-0.2); ABSOLUTE EOSINOPHIL COUNT 0.1 /CUMM (0.0-0.7); ABSOLUTE MONOCYTE COUNT 0.9 /CUMM (0.10-0.60)
[2017-03-19 08:43] LABS: ABSOLUTE GRANULOCYTE CT 9.6 /CUMM (1.4-6.5); ABSOLUTE LYMPH COUNT 0.9 /CUMM (1.2-3.4); BASOPHIL % 0.1 % (0.0-2.0); EOSINOPHIL % 0.7 % (0-5); GRANULOCYTE % 83.8 % (42.2-75.2); MEAN CORPUSCULAR HGB 31.5 PG (27.0-31.0); MEAN CORPUSCULAR HGB CONC 33.3 G/DL (33.0-37.0); MEAN CORPUSCULAR VOLUME 94.6 FL (80.0-94.0); MEAN PLATELET VOLUME 9.2 FL (7.4-10.4); PLATELET COUNT 243 /CUMM (130-400); RBC DISTRIBUTION WIDTH 13.4 % (11.5-14.5); RED BLOOD CELL CT 3.32 /CUMM (4.70-6.10); WHITE BLOOD CELL COUNT 11.5 /CUMM (4.8-10.8)
[2017-03-19 08:49] LABS: HEMATOCRIT 31.4 % (42-52)
[2017-03-19 10:40] VITALS: BP 260/0
[2017-03-19 11:40] VITALS: BP 230/0
--- NOTE | 2017-03-19 12:08 | Event Note ---
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 Intial thoughts were to start on IV unasyn, further evlaution by vasucular surgery with arterial dopplers and amputation on thursday by . His PCP is and he is on board managing diabetes after discontinuation of pump. He was unable to recall following up with any vascular surgeon in the past during the interview yesterday. He is found to have elevated blood pressure this morning 280/00 although it is 120/80mmHg this am. I went to the patient and manually checked but unable to obtain due to lack of good peripheral pulses. After his usual BP meds including amlodipine 2.5mg, Metoprolol succinate 25mg, Losartan 100mg daily are administered it remained 230/doppler. A single dose of hydralazine IV 10mg given. EKG shows some changes compared to previous EKG - given on pacemaker cannot preclude anything. Troponin negative. Assessment 71 YO M presented with progressive cellulitis with superadded putrifaction (wet gangrene) found to have occluded popliteal arteries on arterial doppler, Now had persistent high blood pressure 230/doppler. Cardio consulted - evaluated the patient and recommended to transfer to ICU for closer monitoring. Plan transfer to ICU, start IV heparin. Stat CT angio of lower extremities and CT run off to locate the lesion site. NPO midnight for amputation tomorrow.
[2017-03-19 12:15] VITALS: BP 234/0
--- NOTE | 2017-03-19 12:34 | PN- Housestaff ---
See Addendum nAne Obando MD 03/19/17 1234: Subjective Follow-up For: RIGHT FOOT CELLULITIS AND GANGRENE PVD UNCONTROLLED DIABETES MELLITUS Subjective: PATIENT IS STILL FEELING ONLY MINIMAL PAIN SECONDARY TO HIS NEUROPATHY. HE DENIES CP SOB. Review of Systems Constitutional: Reports: chills, fever. EENTM: Reports: no symptoms. Cardiovascular: Reports: no symptoms. Respiratory: Reports: no symptoms. Gastrointestinal: Reports: no symptoms. Genitourinary: Reports: no symptoms. Musculoskeletal: Reports: see HPI. Skin: Reports: erythema, lesions. Neurological/Psychological: Reports: no symptoms. Objective Last 24 Hrs of Vital Signs/I&O Vital Signs Date Time Temp Pulse Resp B/P B/P Pulse O2 O2 Flow FiO2 Mean Ox Delivery Rate 03/19 1215 70 230/0 03/19 1048 84 260/0 03/19 1048 84 260/0 03/19 1048 84 260/0 03/19 0522 97.9 82 20 128/62 96 Room Air 03/18 2249 Room Air 03/18 2249 98.4 80 20 168/00 92 Room Air 03/18 2231 174/74 03/18 2208 200/90 03/18 2119 98.2 92 18 205/90 95 Room Air 03/18 2000 92 205/90 03/18 1627 97.2 88 20 176/74 98 Room Air 03/18 1413 97.5 79 18 168/74 100 Room Air Intake & Output 03/19 1600 03/19 0800 03/19 0000 Intake Total 960 Output Total 351 Balance -351 960 Intake, Oral 960 Output, Stool 1 Output, Urine 350 Patient 174 lb Weight Weight Reported by Patient Measurement Method Physical Exam General Appearance: Alert, Oriented X3, Cooperative, No Acute Distress Skin: No Rashes, No Breakdown, RIGHT FOOT ERYTHEMA AND BIG TOE GANGRENOUS CHANGES UNDER THE TOENAIL AND MEDIALLY UP THE FOOT. AREAS OF LEAKAGE. AREA LOOKED LAST NIGHT LIKE DARK HEMATOMA BUT TODAY THE SKIN IS MORE DRY AND LOOKS MORE LIKE GANGRENE. FOOT IS ALSO ERYTHEMATOUS. Skin Temp/Moisture Exam: Warm/Dry Sepsis Skin Exam (color): Normal for Ethnicity HEENT: Atraumatic, PERRLA, EOMI, Mucous Membr. moist/pink Cardiovascular: Regular Rate, Normal S1, Normal S2, No Murmurs Lungs: Clear to Auscultation, Normal Air Movement Abdomen: Normal Bowel Sounds, Soft, No Tenderness Neurological: Normal Speech Extremities: No Clubbing, No Cyanosis, No Edema, NO PULSES APPRECIATED IN BOTH LEGS AND FEET. Current Medications: Current Medications Sig/Coral Start time Last Medication Dose Route Stop Time Status Admin Acetaminophen 650 MG Q8P PRN 03/18 2145 AC PO Amlodipine Besylate 2.5 MG DAILY 03/18 1744 AC 03/19 PO 1048 Ampicillin Sodium/ 1,500 MG Q6 03/18 2359 AC 03/19 Sulbactam Sodium IV 0502 Sodium Chloride 100 ML Ampicillin Sodium/ 0 .STK-MED ONE 03/18 1447 CAN Sulbactam Sodium .ROUTE Ampicillin Sodium/ 3,000 MG ONCE ONE 03/18 1430 DC 03/18 Sulbactam Sodium IV 03/18 1459 1449 Sodium Chloride 100 ML Aspirin 0 .STK-MED ONE 03/18 2100 DC PO Aspirin 81 MG DAILY 03/18 1733 AC 03/19 PO 1048 Atorvastatin Calcium 10 MG 1700 03/18 1745 AC 03/18 PO 2116 Heparin Sodium 5,000 UNIT Q8 03/18 2200 AC (Porcine) SC Hydralazine HCl 10 MG ONCE ONE 03/19 1200 DC 03/19 IV 03/19 1201 1215 Insulin Aspart 5 UNITS ONCE ONE 03/19 1100 DC 03/19 SC 03/19 1101 1054 Insulin Aspart 0 TIDAC 03/19 0800 AC SC Insulin Aspart 0 AT BEDTIME 03/18 2200 AC SC Insulin Detemir 8 UNITS BID 03/19 2200 AC SC Insulin Detemir 8 UNITS ONCE ONE 03/19 1100 DC 03/19 SC 03/19 1101 1000 Insulin Detemir 10 UNITS BID 03/19 1000 DC SC Insulin Detemir 14 UNITS ONCE ONE 03/18 1800 DC 03/18 SC 03/18 1801 1807 Losartan Potassium 100 MG DAILY 03/19 1000 AC 03/19 PO 1048 Metoprolol Succinate 25 MG DAILY 03/19 1000 AC 03/19 PO 1048 Morphine Sulfate 0 .STK-MED ONE 03/18 2205 DC .ROUTE Morphine Sulfate 2 MG Q6P PRN 03/18 2200 AC 03/18 IV 2203 Pregabalin 0 .STK-MED ONE 03/18 2100 DC PO Pregabalin 50 MG TID 03/18 1737 AC 03/19 PO 1048 Sodium Chloride 1,000 ML BOLUS ONE 03/18 1445 DC 03/18 IV 03/18 1544 1449 Tramadol HCl 50 MG Q6P PRN 03/18 2145 AC PO Last 24 Hrs of Lab/[place] Results Last 24 Hrs of Labs/Mics: Laboratory Tests 03/19/17 1236: Troponin I 0.05 03/19/17 1221: Troponin I Cancelled 03/19/17 0951: Urinalysis LIGHT H, Urine Color YEL, Urine Clarity CLEAR, Urine pH 6.0, Ur Specific [place] 1.025, Urine Protein 30 H, Urine Ketones NEG, Urine Nitrite NEG, Urine Bilirubin NEG, Urine Urobilinogen 2.0 H, Ur Leukocyte Esterase NEG, Ur Microscopic SEDIMENT EXAMINED, Urine RBC 1-3, Urine WBC 1-3 H, Urine Mucus FEW, Urine Hemoglobin NEG, Urine Glucose >=1000 H 03/19/17 0705: Lactic Acid 0.8 03/19/17 0655: Anion Gap 13, Estimated GFR > 60, BUN/Creatinine Ratio 26.0 H, CBC w Diff NO MAN DIFF REQ, RBC 3.32 L, MCV 94.6 H, MCH 31.5 H, MCHC 33.3, RDW 13.4, MPV 9.2, Gran % 83.8 H, Lymphocytes % 7.5 L, Monocytes % 7.9, Eosinophils % 0.7, Basophils % 0.1, Absolute Granulocytes 9.6 H, Absolute Lymphocytes 0.9 L, Absolute Monocytes 0.9 H, Absolute Eosinophils 0.1, Absolute Basophils 0 03/18/17 1608: Lactic Acid Cancelled 03/18/17 1352: Anion Gap 16, Estimated GFR > 60, BUN/Creatinine Ratio 30.9 H, Glucose 201 H, Hemoglobin A1c 8.3 H, Lactic Acid 2.0, Calcium 9.0, Total Bilirubin 0.9, AST 25 , ALT 40, Alkaline Phosphatase 96, Troponin I 0.06, C-Reactive Prot, Quant > 9.0 H, Total Protein 6.8, Albumin 3.8, Globulin 3.0, Albumin/Globulin Ratio 1.3, CBC w Diff MAN DIFF ORDERED, RBC 3.97 L, MCV 94.7 H, MCH 31.6 H, MCHC 33.3, RDW 13.6, MPV 9.2, Gran % 84.5 H, Lymphocytes % 7.4 L, Monocytes % 6.8, Eosinophils % 1.0, Basophils % 0.3, Absolute Granulocytes 12.4 H, Absolute Lymphocytes 1.1 L, Absolute Monocytes 1.0 H, Absolute Eosinophils 0.2, Absolute Basophils 0, Platelet Estimate VERIFIED BY SMEAR, Normocytic RBCs VERIFIED, Normochromic RBCs VERIFIED, ESR [place] 88 H Microbiology 03/19 1310 UPPER RESP: Surveillance Culture - RECD 03/19 1225 GI: Surveillance Culture - COLB 03/18 1358 BLOOD: Blood Culture - RES 03/18 135 BLOOD: Blood Culture - RES Assessment/Plan Assessment: Patient is a 71-year-old male with a past medical history significant for hypertension, hyperlipidemia, pacemaker placed 4-5 years ago, SILENT GA PER SON, diabetes type 1 since he was 14 years old currently on an insulin pump, MILD COGNITIVE IMPAIRMENT WORKED UP BY DR. MORATAYA PRESUMED TO BE ONSET DEMENTIA, that comes to us for right foot erythema, edema of 10 days duration with the development of eschar/dark blood underneath the skin for the past 1 day. The patient recently has had poor glucose control and has seen his primary care physician Estuardo Adame MD for better control. The patient also sees a director of student financial aid for his diabetic feet which have caused him balance issues in the recent years. The patient came here 5 days ago and was given Keflex and told to follow-up outpatient. However his skin issues have worsened since then. The patient also complains of one-month history of productive cough. In the ED the patient's vitals were temperature 97.5, heart rate 73, respiratory rate 16, blood pressure 125/53, 96% oxygen saturation on room air. Pertinent labs were sodium 144, potassium 4, creatinine 1.1, glucose 201, lactic acid 2.0, CRP greater than 9, WBC 14.7, hemoglobin 12.5. X-ray was done and showed no bony erosive or distractive changes. Tiny flecks of calcification in the soft tissue. No evidence of acute fracture. Venous Doppler showed no evidence of DVT. EKG was unchanged from March 2016 with a rate of 62 normal sinus rhythm deep S waves in V3. Patient was admitted to general medicine floors for evaluation and treatment of the following: #1 cellulitis of right foot #2 uncontrolled diabetes mellitus -HE WAS FOUND THIS MORNING ON DUPLEX SCAN LOWER EXT TO HAVE NO FLOW IN HIS POSTERIOR TIBIAL ARTERIES AND HEAVILY CALCIFIED PLAQUE IN AORTA AND ILIAC VESSELS BUT NO FOCAL STENOSIS. -EXTREMITY VENOUS SCAN SHOWED NO DVT -REPEAT LA STILL NEGATIVE Plan #1 cellulitis of right foot Follow blood cultures Continue Unasyn 1.5 g every 6 hours SPOKE WITH [facility] LAST NIGHT WHO SAID THEY WOULD SEE THE PATIENT TODAY. THIS MORNING WE GOT RESULTS FROM DUPLEX SHOWING NO FLOW IN POSTERIOR TIBIAL ARTERIES AND PLACED CALL TWO TIMES TO VASCULAR FOR URGENT CALL BACK BUT GOT NO RESPONSE. Podiatry has been consulted and has stated that he will LIKELY UNDERGO AMPUTATION OF RIGHT BIG TOE ON THURSDAY- WAITING FOR FURTHER RECOMMENDATIONS FROM VASCULAR AND PODIATRY TODAY FOR CONFIRMATION CT WITH RUNOFF FOR BOTH EXTREMITIES TODAY #2 uncontrolled diabetes mellitus Estuardo Adame MD, his PCP and administrative tech has been consulted RECOMMENDATIONS WERE PUT IN LAST NIGHT BUT TODAY UPDATED. WE DECREASED BID LEVEMIR FROM 10 TO 8, GAVE A ONE TIME DOSE THIS MORNING OF 5, AND ADJUSTED THE INSULIN SS COVERAGE. #3 EVENT PATIENT FOUND TO HAVE NO BP READINGS ON CUFF. NO SYMPTOMS AT THE TIME. DOPPLER SHOWED AT LEAST 220 SYSTOLIC BUT WAS UNRELIABLE PROBABLY SECONDARY TO HIS PVD. WE GAVE ONE DOSE OF HYDRALAZINE AND CONTACTED DR. WYNNE WHO IS LEGAL INTERNSHIP FOR PTS NORMAL ABALONE PROCESSOR DR. DUVALL WHO SAID TO TRANSFER PATIENT TO TELE (NO BEDS SO WILL GO TO ICU), HE REVIEWED EKG, PATIENT IS PACED AND DR. WYNNE IS NOT CONCERNED WITH WHAT WE THOUGHT MAY BE ST ELEVATIONS, HE SAID HOLD OFF ON CTA CHEST FOR AORTIC DISSECTION. PATIENT CURRENTLY IN ICU FOR TELE MONITORING DNR DNI CC DIET Problem List: 1. Cellulitis of right foot 2. Peripheral vascular disease Pain Ratin Pain Location: RIGHT FOOT Pain Goal: Pain 4 or less Pain Plan: PATHWAY Tomorrow's Labs & Rationales: BEP CBC Jeff Haas 03/19/17 1315: Attending MD Review Statement Attending Statement Attending MD Statement: examined this patient, discuss w/resident/PA/MAINTENANCE AND CUSTODIAN SUPERVISOR, agreed w/resident/PA/MAINTENANCE AND CUSTODIAN SUPERVISOR, discussed with family, reviewed EMR data (avail), discussed with nursing, discussed with case mgmt, reviewed images, amended to note
[2017-03-19 16:00] VITALS: BP 166/70
--- NOTE | 2017-03-19 17:08 | Cons- Vascular Surgery ---
Puma Triplett 03/19/17 1623: General Information and HPI Consulting Request Date of Consult: 03/19/17 Requested By: True Lucas MD Reason for Consult: PAD History of Present Illness: This is a 71-year-old male with a past medical history of type 1 DM with diabetic neuropathy, HTN, HLD and second degree heart block s/p pacemaker who was admitted with right lower extremity cellulitis and wet gangrene of his right hallux. He states he developed a cut on the bottom on his heel due to new shoes one month ago. He contacted his big data hadoop developer, Dr. Hernandez who instructed him to use betadine twice daily and apply neosporin to the area. Approximately 11 days ago, he developed redness and swelling on the dorsal aspect and then developed darker discoloration with loss of sensation in his right big toe 2 days ago. He went to the ER at [facility] on Thursday and was perscribed Keflex and to follow-up with his big data hadoop developer, however when he noticed his big toe turning black he returned to the hospital for further evaluation. He denies any injury to the area or similar episodes. He was started on Unasyn and reports the area of redness has receeded since yesterday, however has not regained sensation in his big toe, which is nontender. He was transferred to the ICU for hypertension and recieved hydralazine. He states he is having surgery tomorrow to have his right big toe removed. He had a lower extremity arterial duplex today which revealed PVD with occluded posterior tibial arteries. Therefore, vascular was consulted. Allergies/Medications Allergies: Coded Allergies: NO KNOWN ALLERGIES (12/07/15) Home Med List: Amlodipine (Norvasc) 2.5 MG TABLET 1 TAB PO DAILY HYPERTENSION (Reported) Aspirin (Children's Aspirin) 81 MG TAB.CHEW 1 TAB PO DAILY HEART HEALTH ( Reported) Atorvastatin Calcium 10 MG TABLET 1 TAB PO THURSDAY TO THURSDAY CHOLESTEROL ( Reported) Atorvastatin Calcium 10 MG TABLET 1 TAB PO AD CHOLESTEROL (Reported) Fluticasone Furoate (Flonase Sensimist) 27.5 MCG/ACTUATION SPRAY.SUSP 2 PUF NS DAILY ALLERGY (Reported) Insulin Aspart (Novolog) 100 UNIT/ML CARTRIDGE DIABETES (Reported) Losartan (Cozaar) 100 MG TABLET 1 TAB PO DAILY HYPERTENSION (Reported) Metoprolol Succ XL (Toprol XL) 25 MG TAB 1 TAB PO DAILY HYPERTENSION ( Reported) Pregabalin (Lyrica) 50 MG CAPSULE 1 CAP PO TID NEUROPATHY (Reported) Current Medications: Current Medications Sig/Coral Start time Last Medication Dose Route Stop Time Status Admin Acetaminophen 650 MG Q8P PRN 03/18 2145 AC PO Amlodipine Besylate 2.5 MG DAILY 03/18 1744 AC 03/19 PO 1048 Ampicillin Sodium/ 1,500 MG Q6 03/18 2359 AC 03/19 Sulbactam Sodium IV 1345 Sodium Chloride 100 ML Ampicillin Sodium/ 0 .STK-MED ONE 03/18 1447 CAN Sulbactam Sodium .ROUTE Aspirin 0 .STK-MED ONE 03/18 2100 DC PO Aspirin 81 MG DAILY 03/18 1733 03/19 PO 1048 Atorvastatin Calcium 10 MG 1700 03/18 1745 AC 03/19 PO 1614 Heparin Sodium 5,000 UNIT Q8 03/18 2200 DC 03/19 (Porcine) SC 1344 Heparin Sodium/ 25,000 UNIT Q24H 03/19 1530 AC Dextrose IV Dextrose/Water 500 ML Hydralazine HCl 10 MG ONCE ONE 03/19 1200 DC 03/19 IV 03/19 1201 1215 Insulin Aspart 5 UNITS ONCE ONE 03/19 1100 DC 03/19 SD 03/19 1101 1054 Insulin Aspart 0 TIDAC 03/19 0800 03/19 SD 1615 Insulin Aspart 0 AT BEDTIME 03/18 2200 AC SC Insulin Detemir 8 UNITS BID 03/19 2200 AC SC Insulin Detemir 8 UNITS ONCE ONE 03/19 1100 DC 03/19 SD 03/19 1101 1000 Insulin Detemir 10 UNITS BID 03/19 1000 DC SC Insulin Detemir 14 UNITS ONCE ONE 03/18 1800 DC 03/18 SD 03/18 1801 1807 Losartan Potassium 100 MG DAILY 03/19 1000 AC 03/19 PO 1048 Metoprolol Succinate 25 MG DAILY 03/19 1000 AC 03/19 PO 1048 Morphine Sulfate 0 .STK-MED ONE 03/18 2205 DC .ROUTE Morphine Sulfate 2 MG Q6P PRN 03/18 2200 AC 03/18 IV 2203 Pregabalin 0 .STK-MED ONE 03/18 2100 DC PO Pregabalin 50 MG TID 03/18 1737 03/19 PO 1616 Sodium Chloride 1,000 ML Q10H 03/19 1530 AC 03/19 IV 1613 Tramadol HCl 50 MG Q6P PRN 03/18 2145 AC PO Past History Medical History Blood Transfusion Hx: Yes Neurological: NONE EENT: cataracts Cardiovascular: hypertension, hyperlipidemia, Pacemaker (R) Respiratory: bronchitis Gastrointestinal: NONE Hepatic: NONE Renal: NONE Musculoskeletal: fracture Psychiatric: NONE Endocrine: NONE (w/ insulin pump), diabetes type 1 Blood Disorders: NONE Cancer(s): NONE MARKET GARDENER/Reproductive: NONE Surgical History Pertinent Surgical History: pacemaker Family History Relations & Conditions If Any: MOTHER Relation not specified for: FH: myocardial infarction Psychosocial History Where Do You Live? Home Services at Home: None Primary Language: Turkmen Smoking Status: Former Smoker Functional Ability ADLs Independent: dressing, eating, toileting, bathing. Ambulation: independent IADLs Independent: shopping, housework, finances, food prep, telephone, transportation , medication admin. Exam & Diagnostic Data Vital Signs and I&O Vital Signs Date Time Temp Pulse Resp B/P B/P Pulse O2 O2 Flow FiO2 Mean Ox Delivery Rate 03/19 1521 97 Room Air 03/19 1215 70 230/0 03/19 1215 70 234/0 03/19 1140 86 230/0 03/19 1048 84 260/0 03/19 1048 84 260/0 03/19 1048 84 260/0 03/19 1040 84 260/0 03/19 0522 97.9 82 20 128/62 96 Room Air 03/18 2249 Room Air 03/18 224 98.4 80 20 168/00 92 Room Air 03/18 2231 174/74 03/18 2208 200/90 03/18 2119 98.2 92 18 205/90 95 Room Air 03/18 2000 92 205/90 Intake & Output 03/19 1600 03/19 0800 03/19 0000 03/18 1600 03/18 0800 03/18 0000 Intake Total 370 960 Output Total 351 Balance 19 960 Intake, IV 130 Intake, Oral 240 960 Output, Stool 1 Output, Urine 350 Patient 174 lb 174 lb Weight Weight Reported by Patient Reported by Patient Measurement Method Physical Exam: General - resting comfortably awake an alert in bed in NAD Cardiac - S1S2 noted Lungs - CTAB Extremitity - RLE inspected, right foot with kerlix in place, mildy saturated and removed revealing dry gangrenous hallux with marked area of erythema, receeding from the marked area with blanching, there is scant drainage in the inter digital space, foot is warm, distal extremitiy is cool and nontender to palpation, DP/PT pulses absent on exam an doppler, palpable femoral pulse redressed with kerlix, LLE with palpable femoral, PT pulses, faint DP pulse Last 24 Hours of Labs: Laboratory Tests 03/19 03/19 03/19 1236 1221 0951 Chemistry Troponin I (<0.11 ng/ml) 0.05 Cancelled Urines Urinalysis LIGHT H Urine Color (YEL,AMB,STR) YEL Urine Clarity (CLEAR) CLEAR Urine pH (5.0 - 8.0) 6.0 Ur Specific [place] (1.001 - 1.035) 1.025 Urine Protein (NEG,<30 MG/DL) 30 H Urine Ketones (NEG) NEG Urine Nitrite (NEG) NEG Urine Bilirubin (NEG) NEG Urine Urobilinogen (0.1 - 1.0 EU/dl) 2.0 H Ur Leukocyte Esterase (NEG) NEG Ur Microscopic SEDIMENT EXAMINED Urine RBC (0 - 5 /HPF) 1-3 Urine WBC (0 - 2 /HPF) 1-3 H Urine Mucus (FEW,NONE) FEW Urine Hemoglobin (NEG) NEG Urine Glucose (N MG/DL) >=1000 H 03/19 03/19 0705 0655 Chemistry Sodium (137 - 145 mmol/L) 143 Potassium (3.5 - 5.1 mmol/L) 4.1 Chloride (98 - 107 mmol/L) 104 Carbon Dioxide (22 - 30 mmol/L) 26 Anion Gap (5 - 16) 13 BUN (9 - 20 mg/dL) 26 H Creatinine (0.7 - 1.2 mg/dL) 1.0 Estimated GFR (>60 ml/min) > 60 BUN/Creatinine Ratio (7 - 25 %) 26.0 H Lactic Acid (0.7 - 2.1 mmol/L) 0.8 Hematology CBC w Diff NO MAN DIFF REQ WBC (4.8 - 10.8 /CUMM) 11.5 H RBC (4.70 - 6.10 /CUMM) 3.32 L Hgb (14.0 - 18.0 G/DL) 10.5 L Hct (42 - 52 %) 31.4 L MCV (80.0 - 94.0 FL) 94.6 H MCH (27.0 - 31.0 PG) 31.5 H MCHC (33.0 - 37.0 G/DL) 33.3 RDW (11.5 - 14.5 %) 13.4 Plt Count (130 - 400 /CUMM) 243 MPV (7.4 - 10.4 FL) 9.2 Gran % (42.2 - 75.2 %) 83.8 H Lymphocytes % (20.5 - 51.1 %) 7.5 L Monocytes % (1.7 - 9.3 %) 7.9 Eosinophils % (0 - 5 %) 0.7 Basophils % (0.0 - 2.0 %) 0.1 Absolute Granulocytes (1.4 - 6.5 /CUMM) 9.6 H Absolute Lymphocytes (1.2 - 3.4 /CUMM) 0.9 L Absolute Monocytes (0.10 - 0.60 /CUMM) 0.9 H Absolute Eosinophils (0.0 - 0.7 /CUMM) 0.1 Absolute Basophils (0.0 - 0.2 /CUMM) 0 Imaging Results: SERVICE DATE: 03/18/17- EXAM TYPE: US - US-BILAT LOW EXTR ARTERIAL DOP EXAMINATION: NONINVASIVE ASSESSMENT OF THE ARTERIES OF BOTH LOWER EXTREMITIES INTERPRETING VASCULAR \T\ INTERVENTIONAL RADIOLOGIST: Tavo Albrecht MD CLINICAL INFORMATION: Diabetic foot ulcer TECHNIQUE: Bilateral lower extremity duplex ultrasound was performed with velocity measurements and waveform analysis in the common femoral arteries, profunda femoris arteries, proximal mid and distal superficial femoral arteries, popliteal arteries and tibial vessels. This study was performed only at rest. COMPARISON: CT abdomen pelvis 01/07/2016 FINDINGS: Velocities in cm/sec and phasicity as well as the presence of plaque are reported below. Bilaterally, vessels are heavily calcified and there is monophasic flow throughout both lower extremities. RIGHT LEG: Common Femoral: 229/21 Profunda Femoris: Proximal SFA: 101/17 Mid SFA: 107/21 Distal SFA: 119/2 Popliteal: 105/19 Anterior tibial: 83/19 Peroneal: 122/23 Posterior tibial: No flow Dorsalis pedis: 100/20 LEFT LEG: Common Femoral: 190/16 Profunda Femoris: 117/0 Proximal SFA: 109/12 Mid SFA: 175/12 Distal SFA: 188/13 Popliteal: 125/12 Anterior tibial: 88/4 Peroneal: 102/0 Posterior tibial: No flow Dorsalis pedis: 82/[address], heavily calcified plaque in the aorta and iliac vessels was seen but no focal stenoses are identified. The current study demonstrates some areas of velocity acceleration, for example in the common femoral arteries and mid and distal SFA on the left. Peripheral vascular disease is present as indicative by monophasic flow and occluded posterior tibial arteries. Further anatomic definition could be obtained with CT angiography. IMPRESSION: Peripheral vascular disease is present as indicative by monophasic flow and occluded posterior tibial arteries. Further anatomic definition could be obtained with CT angiography. SERVICE DATE: 03/18/17 EXAM TYPE: RAD - XRY-FOOT COMPLETE, R EXAMINATION: XR FOOT, RIGHT CLINICAL INFORMATION: Right great toe pain and swelling and redness. Presumptive diagnosis: Osteomyelitis fracture throughout. COMPARISON: Prior images are not currently available for comparison. TECHNIQUE: AP, lateral, and oblique views of the right foot. FINDINGS: Generalized soft tissue swelling is noted in the region of the great toe distal aspect with small calcifications present. There is absence of the medial base of the distal phalanx, however the margin is well corticated with no evidence of bony destructive changes. Degenerative changes are noted in the distal interphalangeal joints throughout the digits. No cortical defects are noted throughout the bony structures of the right foot to suggest acute fracture. Bony alignment is within normal limits other than the joint space narrowing of the distal phalanges of the digits. There are heavy vascular calcifications present throughout the right foot. IMPRESSION: 1. 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 Tiny flecks of calcification are noted within the soft tissues. 2. No radiographic evidence of acute fracture is noted at this time. SERVICE DATE: 03/18/17 EXAM TYPE: US - US-DUPLEX VENOUS EXTREM UNI EXAMINATION: US TRIPLEX LOWER EXTREMITY, RIGHT CLINICAL INFORMATION: Right lower extremity pain and swelling. COMPARISON: None TECHNIQUE: Color-flow triplex imaging with spectral analysis and compression Doppler were performed on the lower extremity. FINDINGS: Respiratory variation, normal compression and augmented flow are noted throughout the lower extremity. The visualized common femoral vein, superficial femoral vein, profunda femoral vein, popliteal vein and midcalf peroneal and posterior tibial venous segments show no evidence of deep venous thrombosis. There is no Fair's cyst. IMPRESSION: Normal triplex scan without evidence of deep venous thrombosis involving the lower extremity. Assessment/Plan Assessment/Plan This is a 71 year-old male with a history of type 1 DM with diabetic neuropathy, HTN, HLD and second degree heart block s/p pacemaker who was admitted with right lower extremity cellulitis and gangrene of his right hallux with occluded posterior tibial arteries on imaging. Now on unasyn with absent right-sided PT and DP pulses an necrotic great hallux. He was transferred to the ICU for hypertensive emergency. D/w Dr. Venegas F/u CTA run off Patient may need angiogram this admission Further plan per medicine and podiatry Dr. Venegas to see later Consult Acknowledgment - Thank you for your consult request. TheoCj 03/19/17 1741: Assessment/Plan Consult Acknowledgment - Thank you for your consult request. Attending MD Review Statement Attending Statement Attending MD Statement: examined this patient, discuss w/resident/PA/GREENS PLANTER Attending Assessment/Plan: Right first toe gangrene. CTA showed patent SFA with areas of severe stenosis. PT is occluded after take off. peroneal and AT appear to be patent with diffuse atherosclerosis. Will need an angiogram which will be performed thursday if medically appropriate. Dr Moreno on board. Thank you.
--- NOTE | 2017-03-19 19:31 | Cons- Cardiology ---
General Information and HPI Consulting Request Date of Consult: 03/19/17 Requested By: True Lucas MD Reason for Consult: Uncontrolled hypertension History of Present Illness: The patient is a 71-year-old male with history of diabetes mellitus, permanent pacemaker, hypertension, and hyperlipidemia who is followed by Dr. Avery. He was admitted for cellulitis and gangrene. He is noted to have occluded posterior tibial arteries on imaging. While on the medical floor today the staff were having difficulty obtaining an accurate blood pressure. Using Doppler, blood pressure was measured at 260/0 this morning. 10 mg of IV hydralazine was given, and subsequent Doppler blood pressure measurement was 230 /0. Patient was transferred to ICU for treatment of hypertensive urgency. Upon arrival in the ICU, blood pressure was measured at 175/69 by auscultation. The most recent lipid pressure is 177/75. She reports that he is feeling well from a cardiac standpoint. No chest pain. No shortness of breath. No diaphoresis. No palpitations. No nausea vomiting. No lightheadedness or dizziness. No headaches. Allergies/Medications Allergies: Coded Allergies: NO KNOWN ALLERGIES (12/07/15) Home Med List: Amlodipine (Norvasc) 2.5 MG TABLET 1 TAB PO DAILY HYPERTENSION (Reported) Aspirin (Children's Aspirin) 81 MG TAB.CHEW 1 TAB PO DAILY HEART HEALTH ( Reported) Atorvastatin Calcium 10 MG TABLET 1 TAB PO THURSDAY TO THURSDAY CHOLESTEROL ( Reported) Atorvastatin Calcium 10 MG TABLET 1 TAB PO AD CHOLESTEROL (Reported) Fluticasone Furoate (Flonase Sensimist) 27.5 MCG/ACTUATION SPRAY.SUSP 2 PUF NS DAILY ALLERGY (Reported) Insulin Aspart (Novolog) 100 UNIT/ML CARTRIDGE DIABETES (Reported) Losartan (Cozaar) 100 MG TABLET 1 TAB PO DAILY HYPERTENSION (Reported) Metoprolol Succ XL (Toprol XL) 25 MG TAB 1 TAB PO DAILY HYPERTENSION ( Reported) Pregabalin (Lyrica) 50 MG CAPSULE 1 CAP PO TID NEUROPATHY (Reported) Current Medications: Current Medications Sig/Coral Start time Last Medication Dose Route Stop Time Status Admin Acetaminophen 650 MG Q8P PRN 03/18 2145 AC PO Amlodipine Besylate 2.5 MG DAILY 03/18 1744 AC 03/19 PO 1048 Ampicillin Sodium/ 1,500 MG Q6 03/18 2359 AC 03/19 Sulbactam Sodium IV 1743 Sodium Chloride 100 ML Ampicillin Sodium/ 0 .STK-MED ONE 03/18 1447 CAN Sulbactam Sodium .ROUTE Aspirin 0 .STK-MED ONE 03/18 2100 DC PO Aspirin 81 MG DAILY 03/18 1733 AC 03/19 PO 1048 Atorvastatin Calcium 10 MG 1700 03/18 1745 AC 03/19 PO 1614 Heparin Sodium 5,000 UNIT Q8 03/18 2200 DC 03/19 (Porcine) SC 1344 Heparin Sodium/ 25,000 UNIT Q24H 03/19 1530 AC 03/19 Dextrose IV 1800 Dextrose/Water 500 ML Hydralazine HCl 10 MG ONCE ONE 03/19 1200 DC 03/19 IV 03/19 1201 1215 Insulin Aspart 5 UNITS ONCE ONE 03/19 1100 DC 03/19 SC 03/19 1101 1054 Insulin Aspart 0 TIDAC 03/19 0800 AC 03/19 SC 1615 Insulin Aspart 0 AT BEDTIME 03/18 2200 AC SC Insulin Detemir 8 UNITS BID 03/19 2200 AC SC Insulin Detemir 8 UNITS ONCE ONE 03/19 1100 DC 03/19 SC 03/19 1101 1000 Insulin Detemir 10 UNITS BID 03/19 1000 DC SC Losartan Potassium 100 MG DAILY 03/19 1000 AC 03/19 PO 1048 Metoprolol Succinate 25 MG DAILY 03/19 1000 AC 03/19 PO 1048 Morphine Sulfate 0 .STK-MED ONE 03/18 2205 DC .ROUTE Morphine Sulfate 2 MG Q6P PRN 03/18 2200 AC 03/18 IV 2203 Pregabalin 0 .STK-MED ONE 03/18 2100 DC PO Pregabalin 50 MG TID 03/18 1737 AC 03/19 PO 1616 Sodium Chloride 1,000 ML Q10H 03/19 1530 AC 03/19 IV 1613 Tramadol HCl 50 MG Q6P PRN 03/18 2145 AC PO Review of Systems Review of Systems: No Rash. No tremor. No melena. All other systems were reviewed, and were noted to be negative. 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 Home Services at Home: None Primary Language: Romanian Smoking Status: Former Smoker Functional Ability ADLs Independent: dressing, eating, toileting, bathing. Ambulation: independent IADLs Independent: shopping, housework, finances, food prep, telephone, transportation , medication admin. Exam & Diagnostic Data Vital Signs and I&O Vital Signs Date Time Temp Pulse Resp B/P B/P Pulse O2 O2 Flow FiO2 Mean Ox Delivery Rate 03/19 1521 97 Room Air 03/19 1215 70 230/0 03/19 1215 70 234/0 03/19 1140 86 230/0 03/19 1048 84 260/0 03/19 1048 84 260/0 03/19 1048 84 260/0 03/19 1040 84 260/0 03/19 0522 97.9 82 20 128/62 96 Room Air 03/18 2249 Room Air 03/18 2249 98.4 80 20 168/00 92 Room Air 03/18 2231 174/74 03/18 2208 200/90 03/18 2119 98.2 92 18 205/90 95 Room Air 03/18 2000 92 205/90 Intake & Output 03/19 1600 03/19 0800 03/19 0000 03/18 1600 03/18 0800 03/18 0000 Intake Total 370 960 Output Total 351 Balance 19 960 Intake, IV 130 Intake, Oral 240 960 Output, Stool 1 Output, Urine 350 Patient 174 lb 174 lb Weight Weight Reported by Patient Reported by Patient Measurement Method Physical Exam: Gen: The patient is in no acute distress HEENT: Normal nose, ears, and oropharynx. Pupils equal bilaterally. Conjunctiva normal. Neck: Supple with no JVD, no masses, and no thyromegaly Lungs: Clear to auscultation with normal respiratory effort Heart: RRR, S1, S2, no murmurs. No peripheral edema, pulse nonpalpable in the right lower extremity, and decreased in the left lower extremity Abdomen: Soft, nontender, no masses. No hepatomegaly. No splenomegaly Extremities: No clubbing or cyanosis. Normal muscle strength in the upper and lower extremities Skin: Right foot erythema. Normal skin turgor. Neuro: Cranial nerves intact. Sensation intact Psych: Alert and oriented 3 with appropriate affect Labs/Fransisco Results: Laboratory Tests 03/19 03/19 03/19 1236 1221 0951 Chemistry Troponin I (<0.11 ng/ml) 0.05 Cancelled Urines Urinalysis LIGHT H Urine Color (YEL,AMB,STR) YEL Urine Clarity (CLEAR) CLEAR Urine pH (5.0 - 8.0) 6.0 Ur Specific [place] (1.001 - 1.035) 1.025 Urine Protein (NEG,<30 MG/DL) 30 H Urine Ketones (NEG) NEG Urine Nitrite (NEG) NEG Urine Bilirubin (NEG) NEG Urine Urobilinogen (0.1 - 1.0 EU/dl) 2.0 H Ur Leukocyte Esterase (NEG) NEG Ur Microscopic SEDIMENT EXAMINED Urine RBC (0 - 5 /HPF) 1-3 Urine WBC (0 - 2 /HPF) 1-3 H Urine Mucus (FEW,NONE) FEW Urine Hemoglobin (NEG) NEG Urine Glucose (N MG/DL) >=1000 H 03/19 03/19 03/18 0705 0655 1608 Chemistry Sodium (137 - 145 mmol/L) 143 Potassium (3.5 - 5.1 mmol/L) 4.1 Chloride (98 - 107 mmol/L) 104 Carbon Dioxide (22 - 30 mmol/L) 26 Anion Gap (5 - 16) 13 BUN (9 - 20 mg/dL) 26 H Creatinine (0.7 - 1.2 mg/dL) 1.0 Estimated GFR (>60 ml/min) > 60 BUN/Creatinine Ratio (7 - 25 %) 26.0 H Lactic Acid (0.7 - 2.1 mmol/L) 0.8 Cancelled Hematology CBC w Diff NO MAN DIFF REQ WBC (4.8 - 10.8 /CUMM) 11.5 H RBC (4.70 - 6.10 /CUMM) 3.32 L Hgb (14.0 - 18.0 G/DL) 10.5 L Hct (42 - 52 %) 31.4 L MCV (80.0 - 94.0 FL) 94.6 H MCH (27.0 - 31.0 PG) 31.5 H MCHC (33.0 - 37.0 G/DL) 33.3 RDW (11.5 - 14.5 %) 13.4 Plt Count (130 - 400 /CUMM) 243 MPV (7.4 - 10.4 FL) 9.2 Gran % (42.2 - 75.2 %) 83.8 H Lymphocytes % (20.5 - 51.1 %) 7.5 L Monocytes % (1.7 - 9.3 %) 7.9 Eosinophils % (0 - 5 %) 0.7 Basophils % (0.0 - 2.0 %) 0.1 Absolute Granulocytes (1.4 - 6.5 /CUMM) 9.6 H Absolute Lymphocytes (1.2 - 3.4 /CUMM) 0.9 L Absolute Monocytes (0.10 - 0.60 /CUMM) 0.9 H Absolute Eosinophils (0.0 - 0.7 /CUMM) 0.1 Absolute Basophils (0.0 - 0.2 /CUMM) 0 03/18 1352 Chemistry Sodium (137 - 145 mmol/L) 144 Potassium (3.5 - 5.1 mmol/L) 4.0 Chloride (98 - 107 mmol/L) 100 Carbon Dioxide (22 - 30 mmol/L) 27 Anion Gap (5 - 16) 16 BUN (9 - 20 mg/dL) 34 H Creatinine (0.7 - 1.2 mg/dL) 1.1 Estimated GFR (>60 ml/min) > 60 BUN/Creatinine Ratio (7 - 25 %) 30.9 H Glucose (65 - 99 mg/dL) 201 H Hemoglobin A1c (4.2 - 5.8 %) 8.3 H Lactic Acid (0.7 - 2.1 mmol/L) 2.0 Calcium (8.4 - 10.2 mg/dL) 9.0 Total Bilirubin (0.2 - 1.3 mg/dL) 0.9 AST (17 - 59 U/L) 25 ALT (21 - 72 U/L) 40 Alkaline Phosphatase (< 127 U/L) 96 Troponin I (<0.11 ng/ml) 0.06 C-Reactive Prot, Quant (<1.0 mg/dL) > 9.0 H Total Protein (6.3 - 8.2 g/dL) 6.8 Albumin (3.5 - 5.0 g/dL) 3.8 Globulin (1.9 - 4.2 gm/dL) 3.0 Albumin/Globulin Ratio (1.1 - 2.2 %) 1.3 Hematology CBC w Diff MAN DIFF ORDERED WBC (4.8 - 10.8 /CUMM) 14.7 H RBC (4.70 - 6.10 /CUMM) 3.97 L Hgb (14.0 - 18.0 G/DL) 12.5 L Hct (42 - 52 %) 37.6 L MCV (80.0 - 94.0 FL) 94.7 H MCH (27.0 - 31.0 PG) 31.6 H MCHC (33.0 - 37.0 G/DL) 33.3 RDW (11.5 - 14.5 %) 13.6 Plt Count (130 - 400 /CUMM) 263 MPV (7.4 - 10.4 FL) 9.2 Gran % (42.2 - 75.2 %) 84.5 H Lymphocytes % (20.5 - 51.1 %) 7.4 L Monocytes % (1.7 - 9.3 %) 6.8 Eosinophils % (0 - 5 %) 1.0 Basophils % (0.0 - 2.0 %) 0.3 Absolute Granulocytes (1.4 - 6.5 /CUMM) 12.4 H Absolute Lymphocytes (1.2 - 3.4 /CUMM) 1.1 L Absolute Monocytes (0.10 - 0.60 /CUMM) 1.0 H Absolute Eosinophils (0.0 - 0.7 /CUMM) 0.2 Absolute Basophils (0.0 - 0.2 /CUMM) 0 Platelet Estimate (ADEQUATE) VERIFIED BY SMEAR Normocytic RBCs VERIFIED Normochromic RBCs VERIFIED ESR Westergren (0 - 10 MM) 88 H Diagnostic Data EKG Results EKG tracing independently reviewed, and reveals sinus rhythm with ventricular pacing Other Results Echocardiogram 04/09/16: Mild left ventricular dilatation. Normal left ventricular wall thickness. Left ventricular ejection fraction is estimated at 45-50 %. Abnormal relaxation filling pattern of the left ventricle for age (stage 1 diastolic dysfunction). Catheter/pacemaker wire in the right ventricular cavity. Catheter/pacemaker wire in the right atrial appendage. Mild to moderate left atrial dilatation. There is moderate thickening of the mitral valve leaflets and moderate calcification of the mitral annulus. Focal thickening of the aortic valve cusps. No aortic stenosis. Right ventricular systolic pressure estimated to be elevated at 45 mmHg. Right lower extremity Doppler study: Normal triplex scan without evidence of deep venous thrombosis involving the lower extremity. Arterial u/s of the lower extremities: Peripheral vascular disease is present as indicative by monophasic flow and occluded posterior tibial arteries. Further anatomic definition could be obtained with CT angiography. Assessment/Plan Assessment/Plan The patient is 71-year-old female with history of permanent pacemaker, diabetes mellitus, and peripheral arterial disease. He is not known to have any history of coronary artery disease. He is admitted with right lower extremity cellulitis and gangrene. He is noted to have occluded posterior tibial arteries on imaging. Blood pressure was noted to be 260/0 followed by 230/0, however these readings were obtained with difficulty using Doppler. After treatment with IV hydralazine and transferred to ICU, blood pressure is now 177/75 by auscultation. Recommendations: * Continue losartan 100 mg daily * Would give additional 2.5 mg of amlodipine now, and increase to 5 mg daily starting tomorrow * Further doses of IV hydralazine may be given as needed if the patient develops recurrence of severely elevated blood pressure readings Consult Acknowledgment - Thank you for your consult request.
--- NOTE | 2017-03-19 23:22 | CT SCAN REPORT ---
EXAMINATION: CT HEAD WITHOUT CONTRAST CLINICAL INFORMATION: Altered mental status. COMPARISON: None. TECHNIQUE: Contiguous helical images of the brain were obtained without IV contrast. Multiplanar reconstructions were performed. DLP: 619 mGy-cm. FINDINGS: There are no pathologic extra-axial fluid collections. The lateral, third, fourth ventricles are prominent, though age-appropriate and concordant with the appearance of the sulci. There is no evidence for acute intraparenchymal hemorrhage or infarct. There is neither mass nor mass effect. There is no shift of midline structures. The paranasal sinuses and mastoid air cells are clear. There are no osseous lesions. IMPRESSION: No evidence for acute intracranial injury.
[2017-03-20] VITALS: BP 198/00
[2017-03-20 00:29] LABS: PTT 47 SEC (25-37)
--- NOTE | 2017-03-20 01:31 | RADIOLOGY REPORT ---
EXAMINATION: XR PORTABLE CHEST CLINICAL INFORMATION: Shortness of breath, rule out fluid overload COMPARISON: CT 03/13/2017 TECHNIQUE: Portable frontal view of the chest was obtained. FINDINGS: Right-sided dual lead pacemaker again demonstrated; the right ventricular lead is not well delineated, likely due to motion artifact. Volumes are symmetric. There is diffusely increased prominence of the interstitium, suspicious for interstitial edema. No focal consolidation is seen. No significant pleural effusion. No appreciable pneumothorax. The cardiac silhouette remains prominent. No acute osseous findings are seen. IMPRESSION: Diffusely increased interstitial prominence suspicious for interstitial edema.
[2017-03-20 05:58] LABS: ABSOLUTE BASOPHIL COUNT 0 /CUMM (0.0-0.2); ABSOLUTE EOSINOPHIL COUNT 0 /CUMM (0.0-0.7); ABSOLUTE GRANULOCYTE CT 14.1 /CUMM (1.4-6.5); ABSOLUTE LYMPH COUNT 0.9 /CUMM (1.2-3.4); BASOPHIL % 0.1 % (0.0-2.0); EOSINOPHIL % 0.1 % (0-5); MEAN PLATELET VOLUME 9.1 FL (7.4-10.4)
[2017-03-20 06:00] LABS: PTT 73 SEC (25-37)
[2017-03-20 06:11] LABS: ABSOLUTE MONOCYTE COUNT 0.8 /CUMM (0.10-0.60); GRANULOCYTE % 89.4 % (42.2-75.2); MEAN CORPUSCULAR HGB 31.5 PG (27.0-31.0); MEAN CORPUSCULAR HGB CONC 33.5 G/DL (33.0-37.0); PLATELET COUNT 324 /CUMM (130-400); RBC DISTRIBUTION WIDTH 13.5 % (11.5-14.5); WHITE BLOOD CELL COUNT 15.7 /CUMM (4.8-10.8)
[2017-03-20 06:25] LABS: HEMATOCRIT 36.7 % (42-52)
--- NOTE | 2017-03-20 07:34 | Cons- CRCU ---
Estefani LOZANO,[facility] 03/20/17 0734: General Information and HPI Consulting Request Date of Consult: 03/20/17 Requested By: Dr Anne Obando Reason for Consult: Hypertensive urgency Source of Information: patient, family, old records Exam Limitations: no limitations History of Present Illness: 71-year-old male with a past medical history significant for hypertension, hyperlipidemia, pacemaker placed 4-5 years ago, diabetes type 1 since he was 14 years old managed on an insulin pump at home was admitted to the medical floor for treatment of cellulitis and right toe gangrene. Yesterday, the nursing staff had difficulty obtaining manual blood pressure and found it to be 260/0 systolic. He was administered one dose of IV hydralazine 10mg and transferred to the intensive care for further monitoring. The patient however had been asymptomatic. He did report any chest pain, SOB, palpitations or any other associated symptoms. His troponins have been negative. His imaging does not show any evidence of DVT but does demonstrate PVD with occluded posterior tibial arteries. Overnight he was administered total 40mg IV lasix as he was found to have crackles on exam with CXR showing interestitial edema. This morning the patient is alert, awake, oriented x2 but delirious. He believes he has an outpatient appointment with Dr Moreno which he cannot miss. The son is present with the patient today who informs that the patient has some baseline memory loss and dementia. Allergies/Medications Allergies: Coded Allergies: NO KNOWN ALLERGIES (12/07/15) Home Med List: Amlodipine (Norvasc) 2.5 MG TABLET 1 TAB PO DAILY HYPERTENSION (Reported) Aspirin (Children's Aspirin) 81 MG TAB.CHEW 1 TAB PO DAILY HEART HEALTH ( Reported) Atorvastatin Calcium 10 MG TABLET 1 TAB PO THURSDAY TO THURSDAY CHOLESTEROL ( Reported) Atorvastatin Calcium 10 MG TABLET 1 TAB PO AD CHOLESTEROL (Reported) Fluticasone Furoate (Flonase Sensimist) 27.5 MCG/ACTUATION SPRAY.SUSP 2 PUF NS DAILY ALLERGY (Reported) Insulin Aspart (Novolog) 100 UNIT/ML CARTRIDGE DIABETES (Reported) Losartan (Cozaar) 100 MG TABLET 1 TAB PO DAILY HYPERTENSION (Reported) Metoprolol Succ XL (Toprol XL) 25 MG TAB 1 TAB PO DAILY HYPERTENSION ( Reported) Pregabalin (Lyrica) 50 MG CAPSULE 1 CAP PO TID NEUROPATHY (Reported) Review of Systems Review of Systems Constitutional: Reports: no symptoms. EENTM: Reports: no symptoms. Cardiovascular: Reports: no symptoms. Respiratory: Reports: cough, sputum production. GI: Reports: no symptoms. Musculoskeletal: Reports: no symptoms. Skin: Reports: erythema, lesions. 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 Home Services at Home: None Primary Language: Lao Smoking Status: Former Smoker Functional Ability ADLs Independent: dressing, eating, toileting, bathing. Ambulation: independent IADLs Independent: shopping, housework, finances, food prep, telephone, transportation , medication admin. Exam & Diagnostic Data Last 24 Hrs of Vital Signs/I&O Vital Signs Date Time Temp Pulse Resp B/P B/P Pulse O2 O2 Flow FiO2 Mean Ox Delivery Rate 03/20 1026 94 150/50 03/20 1026 150/50 03/20 1025 90 150/50 03/20 0400 95 Venti Mask 30% 03/20 0208 108 207/83 03/20 0112 92 Nasal 2.0L Cannula 03/20 0023 107 18 191/79 03/20 0000 95 Nasal 2.0L Cannula 03/20 0000 99.9 102 26 198/00 95 Nasal 2.0L Cannula 03/19 2022 89 210/00 03/19 2000 96 Room Air 03/19 1600 99.0 88 23 166/70 98 Room Air 03/19 1521 97 Room Air 03/19 1215 70 230/0 03/19 1215 70 234/0 03/19 1140 86 230/0 03/19 1048 84 260/0 03/19 1048 84 260/0 03/19 1048 84 260/0 03/19 1040 84 260/0 Intake & Output 03/20 1600 03/20 0800 03/20 0000 Intake Total 235.9 969 Output Total 1750 275 Balance -1514.1 694 Intake, IV 235.9 819 Intake, Oral 0 150 Number 0 0 Bowel Movements Output, Urine 1750 275 Patient 174 lb Weight Weight Bed scale Measurement Method Physical Exam General Appearance: alert, awake, mild distress, oriented x 2 Head: atraumatic, normal appearance Eyes: Bilateral: normal appearance. Respiratory: chest non-tender, crackles Cardiovascular: tachycardia Gastrointestinal: soft, non-tender Extremities: no edema, right toe gangrenous, black eschar on medial aspect of the right foot near toe that extends down foot Cranial Nerves: normal hearing, normal speech Last 48 Hrs of Labs/Fransisco: Laboratory Tests 03/20/17 0600: Sodium Cancelled, Potassium Cancelled, Chloride Cancelled, Carbon Dioxide Cancelled, Anion Gap Cancelled, BUN Cancelled, Creatinine Cancelled, BUN/ Creatinine Ratio Cancelled 03/20/17 0510: Anion Gap 17 H, Estimated GFR > 60, Glucose 253 H, Calcium 8.3 L, Phosphorus 3.5, Magnesium 1.9, Total Bilirubin 0.5, AST 22, ALT 38, Albumin 3.4 L, APTT 73 H, CBC w Diff NO MAN DIFF REQ, RBC 3.90 L, MCV 94.0, MCH 31.5 H, MCHC 33.5, RDW 13.5, MPV 9.1, Gran % 89.4 H, Lymphocytes % 5.5 L, Monocytes % 4.9, Eosinophils % 0.1, Basophils % 0.1, Absolute Granulocytes 14.1 H, Absolute Lymphocytes 0.9 L, Absolute Monocytes 0.8 H, Absolute Eosinophils 0, Absolute Basophils 0 03/20/17 0150: pH 7.44, pCO2 35, pO2 79 L, HCO3 23, ABG O2 Sat (Measured) 94.0 L, P-50 (Temp Corrected) Y, Carboxyhemoglobin 0.4 L, O2 Concentration % 40%, Temperature 99.9 , O2 Delivery Method V/M, Phlebotomy Draw Site RIGHT BRACHIAL 03/19/17 2330: APTT 47 H 03/19/17 1236: Troponin I 0.05 03/19/17 1221: Troponin I Cancelled 03/19/17 0951: Urinalysis LIGHT H, Urine Color YEL, Urine Clarity CLEAR, Urine pH 6.0, Ur Specific [place] 1.025, Urine Protein 30 H, Urine Ketones NEG, Urine Nitrite NEG, Urine Bilirubin NEG, Urine Urobilinogen 2.0 H, Ur Leukocyte Esterase NEG, Ur Microscopic SEDIMENT EXAMINED, Urine RBC 1-3, Urine WBC 1-3 H, Urine Mucus FEW, Urine Hemoglobin NEG, Urine Glucose >=1000 H 03/19/17 0705: Lactic Acid 0.8 03/19/17 0655: Anion Gap 13, Estimated GFR > 60, BUN/Creatinine Ratio 26.0 H, CBC w Diff NO MAN DIFF REQ, RBC 3.32 L, MCV 94.6 H, MCH 31.5 H, MCHC 33.3, RDW 13.4, MPV 9.2, Gran % 83.8 H, Lymphocytes % 7.5 L, Monocytes % 7.9, Eosinophils % 0.7, Basophils % 0.1, Absolute Granulocytes 9.6 H, Absolute Lymphocytes 0.9 L, Absolute Monocytes 0.9 H, Absolute Eosinophils 0.1, Absolute Basophils 0 03/18/17 1608: Lactic Acid Cancelled 03/18/17 1352: Anion Gap 16, Estimated GFR > 60, BUN/Creatinine Ratio 30.9 H, Glucose 201 H, Hemoglobin A1c 8.3 H, Lactic Acid 2.0, Calcium 9.0, Total Bilirubin 0.9, AST 25 , ALT 40, Alkaline Phosphatase 96, Troponin I 0.06, C-Reactive Prot, Quant > 9.0 H, Total Protein 6.8, Albumin 3.8, Globulin 3.0, Albumin/Globulin Ratio 1.3, CBC w Diff MAN DIFF ORDERED, RBC 3.97 L, MCV 94.7 H, MCH 31.6 H, MCHC 33.3, RDW 13.6, MPV 9.2, Gran % 84.5 H, Lymphocytes % 7.4 L, Monocytes % 6.8, Eosinophils % 1.0, Basophils % 0.3, Absolute Granulocytes 12.4 H, Absolute Lymphocytes 1.1 L, Absolute Monocytes 1.0 H, Absolute Eosinophils 0.2, Absolute Basophils 0, Platelet Estimate VERIFIED BY SMEAR, Normocytic RBCs VERIFIED, Normochromic RBCs VERIFIED, ESR Westergren 88 H Microbiology 03/19 5937 NASOPHARYN: Influenza Virus A & B Rapid Smear - COMP Diagnostic Data CXR Results Diffusely increased interstitial prominence suspicious for interstitial edema. Assessment/Plan Impression/Plan: 71-year-old male with a past medical history significant for hypertension, hyperlipidemia, pacemaker placed 4-5 years ago, diabetes type 1 since he was 14 years old managed on an insulin pump at home admitted to the intensive care for hypertensive urgency. Assessment and Plan: ?Cellulitis/Gangrene of Right Foot: * He appears to have cellulitis of his right foot along with gangrene of his right toe. * Will continue him on IV Unasyn 1.5g q6. * He does have an elevated white count. * He is scheduled for debridement/amputation with Dr Moreno this afternoon. * DNR/DNI reversed for surgery. * Spoke to Dr Fu this morning if the patient can undergo his surgery, from a cardiac standpoint. He stated the patient can undergo surgery for his toe amputation. * His CT runoff shows significant lower extremity PVD. He will have an angiogram on Thursday. * Further management of PVD after angio and as per Vascular ?UTI: * His urine is growing gram positive cocci * Will follow final cultures and change antibiotics if needed. Hypertensive Urgency: * His blood pressure was found to be severely elevated yesterday 260/0 by doppler. He has been asymptomatic. * His blood pressure has been in acceptable range. Will continue his home medications for now. * Will monitor blood pressure closely and use IV hydralazine for any acute rise in blood pressure. * Repeat CXR from this morning shows significant improvement in her edema. He received IV lasix 20mg x2 last night. * Will repeat proBNP level * Appreciate cardiology recs. History of hypertension * Continue amlodipine 5mg, metoprolol 25mg and Losartan 100mg daily Diabetic neuropathy * Continue Neurontin 50 mg TID DVT prophylaxis Subcutaneous heparin CODE STATUS DNR/DNI Consult Acknowledgment - Thank you for your consult request. True Lucas MD 03/20/17 1421: Assessment/Plan Other Findings/Comments: True Frederick M.D. have examined this patient, reviewed available EMR data, personally reviewed images, discussed with resident/PA/HORSE BREEDER, discussed management plan with housestaff and nursing staff, discussed managment plan all of healthcare providers, discussed management plan with patient and/or family, agreed with resident/PA/HORSE BREEDER. The past history and parts of the chart have been autopopulated. Impression 71 year old man * rle cellulitis, sepsis * peripheral arterial disease * delirium * htn urgency Plan -cxr today -plan for amputation -bp control -dnr/dni (reversed for procedure) -if delirium does not improve will consider neurology consultation per family request -hemodynamic monitoring -cont to follow vascular and podiatry recs -on unasyn DVT prophylaxis at all times TTS 40 min d/w son Consult Acknowledgment - Thank you for your consult request.
--- NOTE | 2017-03-20 07:39 | PN- Diabetes ---
Assessment/Plan Assessment: This patient has type 1 diabetes mellitus and presents with a cellulitis of the right foot and necrosis of the right great toe. The patient was transferred to the intensive care unit because of hypertension. He also went into congestive heart failure. His blood pressure is under better control this morning. Y The patient is using on an insulin pump at home. In the hospital we have recommended Levemir 8 units twice a day and sliding scale NovoLog. The patient is presently n.p.o. pending a possible surgical procedure on his right foot today. His troponins have been negative. The patient has become confused and agitated. The findings are consistent with delirium. Plan: Suggest that while n.p.o. the patient should receive 4 units of Levemir this morning. His sliding scale insulin should be changed to sliding scale NovoLog every 4 hours. Sinus scale NovoLog every 4 hours should be less than 150 give no insulin, 151-200 give 2 units NovoLog, 201-250 give 3 units NovoLog, 251-300 give 4 units NovoLog, 301-350 give 5 units NovoLog, 351-400 give 6 units NovoLog. When the patient is eating again we should resume his Levemir 8 units twice a day and the sliding scale before meals with a separate sliding scale at bedtime as previously written. The patient should be cleared by Dr. Fu before surgery is done today. Subjective Subjective: Does not answer questions appropriately Objective Last 24 Hrs of Vital Signs/I&O Vital Signs Date Time Temp Pulse Resp B/P B/P Pulse O2 O2 Flow FiO2 Mean Ox Delivery Rate 03/20 0400 95 Venti Mask 30% 03/20 0208 108 207/83 03/20 0112 92 Nasal 2.0L Cannula 03/20 0023 107 18 191/79 03/20 0000 95 Nasal 2.0L Cannula 03/20 0000 99.9 102 26 198/00 95 Nasal 2.0L Cannula 03/19 2022 89 210/00 03/19 2000 96 Room Air 03/19 1600 99.0 88 23 166/70 98 Room Air 03/19 1521 97 Room Air 03/19 1215 70 230/0 03/19 1215 70 234/0 03/19 1140 86 230/0 03/19 1048 84 260/0 03/19 1048 84 260/0 03/19 1048 84 260/0 03/19 1040 84 260/0 Intake & Output 03/20 0800 03/20 0000 03/19 1600 Intake Total 235.9 969 370 Output Total 1750 275 351 Balance -1514.1 694 19 Intake, IV 235.9 819 130 Intake, Oral 0 150 240 Number 0 0 Bowel Movements Output, Stool 1 Output, Urine 1750 275 350 Patient 174 lb Weight Weight Bed scale Measurement Method Vital Signs Date Time Temp Pulse Resp B/P B/P Pulse O2 O2 Flow FiO2 Mean Ox Delivery Rate 03/20 0400 95 Venti Mask 30% 03/20 0208 108 207/83 03/20 0112 92 Nasal 2.0L Cannula 03/20 0023 107 18 191/79 03/20 0000 95 Nasal 2.0L Cannula 03/20 0000 99.9 102 26 198/00 95 Nasal 2.0L Cannula 03/19 2022 89 210/00 03/19 2000 96 Room Air 03/19 1600 99.0 88 23 166/70 98 Room Air 03/19 1521 97 Room Air 03/19 1215 70 230/0 03/19 1215 70 234/0 03/19 1140 86 230/0 03/19 1048 84 260/0 03/19 1048 84 260/0 03/19 1048 84 260/0 03/19 1040 84 260/0 Intake & Output 03/20 0803/20 0000 03/19 1600 Intake Total 235.9 969 370 Output Total 1750 275 351 Balance -1514.1 694 19 Intake, IV 235.9 819 130 Intake, Oral 0 150 240 Number 0 0 Bowel Movements Output, Stool 1 Output, Urine 1750 275 350 Patient 174 lb Weight Weight Bed scale Measurement Method Physical Exam General Appearance: alert, awake, confused and agitated Head: normal appearance Neck: normal inspection Cardiovascular: regular rate/rhythm Abdomen: normal bowel sounds Extremities: right foot bandaged Current Medications: Current Medications Sig/Coral Start time Last Medication Dose Route Stop Time Status Admin Acetaminophen 650 MG Q8P PRN 03/18 2145 AC PO Amlodipine Besylate 5 MG DAILY 03/20 1000 DC PO Amlodipine Besylate 5 MG DAILY 03/20 1000 AC PO Amlodipine Besylate 2.5 MG ONCE ONE 03/19 1944 DC 03/19 PO 03/19 Amlodipine Besylate 2.5 MG DAILY 03/18 1744 DC 03/19 PO 1048 Ampicillin Sodium/ 1,500 MG Q6 03/19 2359 AC 03/20 Sulbactam Sodium IV 0539 Sodium Chloride 50 ML Ampicillin Sodium/ 1,500 MG Q6 03/18 2359 DC 03/19 Sulbactam Sodium IV 1743 Sodium Chloride 100 ML Aspirin 81 MG DAILY 03/18 1733 AC 03/19 PO 1048 Atorvastatin Calcium 40 MG 1700 03/20 1700 AC PO Atorvastatin Calcium 10 MG 1700 03/18 1745 DC 03/19 PO 1614 Dextrose/Sodium 1,000 ML Q20H 03/20 0000 DC 03/20 Chloride IV 03/20 1959 0023 Furosemide 20 MG ONCE ONE 03/20 0230 DC 03/20 IV 03/20 0231 0300 Furosemide 20 MG ONCE ONE 03/20 0145 DC 03/20 IV 03/20 0146 0148 Heparin Sodium 3,240 UNIT ONCE ONE 03/20 0100 DC 03/20 (Porcine) IV 03/20 0101 0119 Heparin Sodium 5,000 UNIT Q8 03/18 2200 MN 03/19 (Porcine) SC 1344 Heparin Sodium/ 25,000 UNIT Q24H 03/19 1530 03/19 Dextrose IV 03/20 0800 1800 Dextrose/Water 500 ML Hydralazine HCl 5 MG ONCE ONE 03/20 0215 DC 03/20 IV 03/20 0216 0208 Hydralazine HCl 5 MG ONCE ONE 03/20 0015 DC 03/20 IV 03/20 0016 0023 Hydralazine HCl 10 MG ONCE ONE 03/19 2345 CAN IV 03/19 2346 Hydralazine HCl 5 MG ONCE ONE 03/19 2115 CAN IV 03/19 2116 Hydralazine HCl 10 MG ONCE ONE 03/19 1200 DC 03/19 IV 03/19 1201 1215 Insulin Aspart 5 UNITS ONCE ONE 03/19 1100 DC 03/19 SC 03/19 1101 1054 Insulin Aspart 0 TIDAC 03/19 0800 DC 03/19 SC 03/20 0000 1615 Insulin Aspart 0 AT BEDTIME 03/18 2200 DC 03/19 AK 03/20 0000 2229 Insulin Detemir 8 UNITS BID 03/19 2200 AC 03/19 SC 2229 Insulin Detemir 8 UNITS ONCE ONE 03/19 1100 DC 03/19 SC 03/19 1101 1000 Insulin Detemir 10 UNITS BID 03/19 1000 DC SC Insulin Human Regular 0 Q6 03/19 2359 AC 03/20 SC 0538 Losartan Potassium 100 MG DAILY 03/19 1000 AC 03/19 PO 1048 Metoprolol Succinate 25 MG DAILY 03/19 1000 AC 03/19 PO 1048 Morphine Sulfate 2 MG Q6P PRN 03/18 2200 AC 03/20 IV 0204 Pregabalin 50 MG TID 03/18 1737 AC 03/19 PO 2229 Sodium Chloride 1,000 ML Q10H 03/19 1530 DC 03/19 IV 1613 Tramadol HCl 50 MG Q6P PRN 03/18 2145 AC PO Findings Pertinent Lab/[place] Results: Laboratory Tests 03/20 03/20 0600 0510 Chemistry Sodium (137 - 145 mmol/L) Cancelled 144 Potassium (3.5 - 5.1 mmol/L) Cancelled 3.8 Chloride (98 - 107 mmol/L) Cancelled 101 Carbon Dioxide (22 - 30 mmol/L) Cancelled 26 Anion Gap (5 - 16) Cancelled 17 H BUN (9 - 20 mg/dL) Cancelled 22 H Creatinine (0.7 - 1.2 mg/dL) Cancelled 0.9 Estimated GFR (>60 ml/min) > 60 BUN/Creatinine Ratio Cancelled Glucose (65 - 99 mg/dL) 253 H Calcium (8.4 - 10.2 mg/dL) 8.3 L Phosphorus (2.5 - 4.5 mg/dL) 3.5 Magnesium (1.6 - 2.3 mg/dL) 1.9 Total Bilirubin (0.2 - 1.3 mg/dL) 0.5 AST (17 - 59 U/L) 22 ALT (21 - 72 U/L) 38 Albumin (3.5 - 5.0 g/dL) 3.4 L Coagulation APTT (25 - 37 SEC) 73 H Hematology CBC w Diff NO MAN DIFF REQ WBC (4.8 - 10.8 /CUMM) 15.7 H RBC (4.70 - 6.10 /CUMM) 3.90 L Hgb (14.0 - 18.0 G/DL) 12.3 L Hct (42 - 52 %) 36.7 L MCV (80.0 - 94.0 FL) 94.0 MCH (27.0 - 31.0 PG) 31.5 H MCHC (33.0 - 37.0 G/DL) 33.5 RDW (11.5 - 14.5 %) 13.5 Plt Count (130 - 400 /CUMM) 324 MPV (7.4 - 10.4 FL) 9.1 Gran % (42.2 - 75.2 %) 89.4 H Lymphocytes % (20.5 - 51.1 %) 5.5 L Monocytes % (1.7 - 9.3 %) 4.9 Eosinophils % (0 - 5 %) 0.1 Basophils % (0.0 - 2.0 %) 0.1 Absolute Granulocytes (1.4 - 6.5 /CUMM) 14.1 H Absolute Lymphocytes (1.2 - 3.4 /CUMM) 0.9 L Absolute Monocytes (0.10 - 0.60 /CUMM) 0.8 H Absolute Eosinophils (0.0 - 0.7 /CUMM) 0 Absolute Basophils (0.0 - 0.2 /CUMM) 0 03/20 03/19 03/19 03/19 0150 2330 1236 1221 Blood Gas pH (7.35 - 7.45 PH) 7.44 pCO2 (35 - 45 TORR) 35 pO2 (80 - 100 TORR) 79 L HCO3 (21 - 28 MEQ/L) 23 ABG O2 Sat (Measured) (>96.0 %) 94.0 L P-50 (Temp Corrected) Y Carboxyhemoglobin (1.5 - 5.0 %) 0.4 L O2 Concentration % 40% Temperature (97.0 - 100.0 FARH) 99.9 O2 Delivery Method V/M Chemistry Troponin I (<0.11 ng/ml) 0.05 Cancelled Coagulation APTT (25 - 37 SEC) 47 H Miscellaneous Phlebotomy Draw Site RIGHT BRACHIAL 03/19 0904 Urines Urinalysis LIGHT H Urine Color (YEL,AMB,STR) YEL Urine Clarity (CLEAR) CLEAR Urine pH (5.0 - 8.0) 6.0 Ur Specific [place] (1.001 - 1.035) 1.025 Urine Protein (NEG,<30 MG/DL) 30 H Urine Ketones (NEG) NEG Urine Nitrite (NEG) NEG Urine Bilirubin (NEG) NEG Urine Urobilinogen (0.1 - 1.0 EU/dl) 2.0 H Ur Leukocyte Esterase (NEG) NEG Ur Microscopic SEDIMENT EXAMINED Urine RBC (0 - 5 /HPF) 1-3 Urine WBC (0 - 2 /HPF) 1-3 H Urine Mucus (FEW,NONE) FEW Urine Hemoglobin (NEG) NEG Urine Glucose (N MG/DL) >=1000 H
[2017-03-20 08:00] VITALS: BP 154/70
--- NOTE | 2017-03-20 11:03 | RADIOLOGY REPORT ---
EXAMINATION: XR PORTABLE CHEST CLINICAL INFORMATION: Shortness of breath. COMPARISON: Chest done on 03/20/2017. TECHNIQUE: Portable frontal view of the chest was obtained. FINDINGS: Previously documented linear interstitial prominence seen diffusely throughout both lung cavazos show significant interval improvement. A focal new airspace disease, however, is noted at right lung base which may represent evolving pneumonia. The cardiomediastinal silhouette is within normal limits. Dual lead pacer wires placed from the right subclavian approach appear intact. IMPRESSION: 1. Significant interval improvement of previously documented presumed interstitial edema since the chest radiograph done earlier today. 2. Interval development of focal patchy airspace disease at right lung base, may represent evolving pneumonia. No other significant change.
--- NOTE | 2017-03-20 11:36 | CT SCAN REPORT ---
STUDY PERFORMED: CTA of the abdomen, pelvis and lower extremity runoff with contrast HISTORY: Lower extremity right gangrene with decreased pulses. DESCRIPTION: Routine abdominal aorta and lower extremity runoff CTA protocol with contrast was performed. 125 mL of Optiray 350 was administered. The images were reviewed and postprocessed on a dedicated 3-D workstation. DLP: 1014.44 mGycm COMPARISON: CT abdomen and pelvis 01/07/2016, lower extremity arterial Doppler 03/18/2017 FINDINGS: Vascular: 1. Mesenteric Arteries:The celiac axis, superior mesenteric artery and inferior mesenteric artery are patent. 2. Renal Arteries: Single bilateral renal arteries are patent. 3. Abdominal Aorta: Nonaneurysmal. No evidence of aortic dissection. Mild scattered atherosclerotic plaque. 4. Right Lower Extremity Arterial Perfusion: The common, internal and external iliac arteries are patent without significant stenosis. The common femoral profunda femoral arteries demonstrate mild atherosclerotic disease without significant stenosis. Superficial femoral artery is patent with multifocal atherosclerotic disease. There is a focal severe stenosis in the distal right superficial femoral artery in the adductor canal (image 996, series 2). The popliteal artery is patent with multifocal areas of mild to moderate stenosis. There is a focal severe stenosis in the above-knee popliteal artery (image 1216, series 2) and below-knee popliteal artery (image 1419, series 2). Extensive peripheral arterial disease is seen within the anterior tibial, peroneal and posterior tibial arteries resulting in multifocal areas of severe stenosis and occlusion. 5. Left Lower Extremity Arterial Perfusion: The common, internal and external iliac arteries are patent. There is a moderate to severe stenosis at the origin of the internal iliac artery. Common femoral and profunda femoral arteries are patent without significant stenosis. Superficial femoral artery is patent with a severe stenosis distally in the adductor canal (image 1000, series 2). Popliteal artery is patent but contains multifocal areas of moderate to severe stenoses.Extensive peripheral arterial disease is seen within the anterior tibial, peroneal and posterior tibial arteries resulting in multifocal areas of severe stenosis and occlusion. 6. Inferior Vena Cava: Normal course and caliber. Nonvascular: LUNG BASES: Subsegmental atelectasis/scarring is noted at the lung bases. Cardiomegaly is present. No pericardial effusion. Trace left pleural effusion. LIVER, GALLBLADDER, AND BILIARY TREE: The liver is normal in size, shape, and attenuation. No focal hepatic lesion or biliary ductal dilatation is present. The gallbladder is unremarkable with no evidence of radiopaque gallstones, gallbladder wall thickening, or obvious pericholecystic inflammatory changes. PANCREAS: The pancreatic duct measures 4 to 5 mm in diameter, unchanged. No focal pancreatic lesion identified. SPLEEN: Unremarkable. ADRENAL GLANDS: Unremarkable. KIDNEYS AND URETERS: The kidneys are normal in size, shape, and attenuation. No hydronephrosis, hydroureter, or calculi seen. Nonspecific bilateral perinephric stranding. BLADDER: Unremarkable. GASTROINTESTINAL TRACT: There is no bowel obstruction, free intraperitoneal air or significant fluid. ABDOMINAL WALL: No significant hernia is appreciated. LYMPH NODES: No mesenteric, retroperitoneal or pelvic lymphadenopathy. PELVIC VISCERA: Prostate gland and seminal vesicles are grossly unremarkable. No pelvic free fluid. Vas deferens calcifications again noted. OSSEOUS STRUCTURES: No acute or suspicious osseous lesions. Multilevel generative changes are present within the spine. IMPRESSION: 1. Iliac arteries are patent. Focal severe stenosis in the bilateral distal superficial femoral arteries. Focal areas of severe stenoses in the bilateral popliteal arteries. There is extensive peripheral arterial disease within the bilateral anterior tibial, peroneal and posterior tibial arteries resulting in multifocal areas of severe stenosis/occlusion. 2. Mild cardiomegaly. Trace left pleural effusion and bibasilar atelectasis. 3. Other stable findings as described.
--- NOTE | 2017-03-20 12:02 | PN- Cardiology ---
Subjective Subjective: Alert and comfortable. Remains confused. Slightly better. Blood pressure remains elevated but improved. Objective Vital Signs and I&Os Vital Signs Date Time Temp Pulse Resp B/P B/P Pulse O2 O2 Flow FiO2 Mean Ox Delivery Rate 03/20 1026 94 150/50 03/20 1026 150/50 03/20 1025 90 150/50 03/20 0800 96 Nasal 5.0L Cannula 03/20 0800 98.5 108 20 154/70 95 Nasal 5.0L Cannula 03/20 0400 95 Venti Mask 30% 03/20 0208 108 207/83 03/20 0112 92 Nasal 2.0L Cannula 03/20 0023 107 18 191/79 03/20 0000 95 Nasal 2.0L Cannula 03/20 0000 99.9 102 26 198/00 95 Nasal 2.0L Cannula 03/19 202 89 210/00 03/19 2000 96 Room Air 03/19 1600 99.0 88 23 166/70 98 Room Air 03/19 1521 97 Room Air 03/19 1215 70 230/0 03/19 1215 70 234/0 Intake & Output 03/20 1600 03/20 0800 03/20 0000 03/19 1600 03/19 0800 03/19 0000 Intake Total 235.9 969 370 960 Output Total 1750 275 351 Balance -1514.1 694 19 960 Intake, IV 235.9 819 130 Intake, Oral 0 150 240 960 Number 0 0 Bowel Movements Output, Stool 1 Output, Urine 1750 275 350 Patient 174 lb 174 lb Weight Weight Bed scale Reported by Patient Measurement Method Current Medications: Current Medications Sig/Coral Start time Last Medication Dose Route Stop Time Status Admin Acetaminophen 650 MG Q8P PRN 03/18 2145 AC PO Amlodipine Besylate 5 MG DAILY 03/20 1000 DC PO Amlodipine Besylate 5 MG DAILY 03/20 1000 AC 03/20 PO 1025 Amlodipine Besylate 2.5 MG ONCE ONE 03/19 1944 DC 03/19 PO 03/19 Amlodipine Besylate 2.5 MG DAILY 03/18 1744 DC 03/19 PO 1048 Ampicillin Sodium/ 1,500 MG Q6 03/19 2359 AC 03/20 Sulbactam Sodium IV 0539 Sodium Chloride 50 ML Ampicillin Sodium/ 1,500 MG Q6 03/18 2358 DC 03/19 Sulbactam Sodium IV 1743 Sodium Chloride 100 ML Aspirin 81 MG DAILY 03/18 1733 AC 03/20 PO 1025 Atorvastatin Calcium 40 MG 1700 03/20 1700 AC PO Atorvastatin Calcium 10 MG 1700 03/18 1745 DC 03/19 PO 1614 Dextrose/Sodium 1,000 ML Q20H 03/20 0000 DC 03/20 Chloride IV 03/20 1959 0023 Furosemide 20 MG ONCE ONE 03/20 0230 DC 03/20 IV 03/20 0231 0300 Furosemide 20 MG ONCE ONE 03/20 0145 DC 03/20 IV 03/20 0146 0148 Heparin Sodium 5,000 UNIT .STK-MED ONE 03/20 0104 DC (Porcine) IV 03/20 0105 Heparin Sodium 3,240 UNIT ONCE ONE 03/20 0100 DC 03/20 (Porcine) IV 03/20 0101 0119 Heparin Sodium 5,000 UNIT Q8 03/18 2200 DC 03/19 (Porcine) SC 1344 Heparin Sodium/ 25,000 UNIT Q24H 03/19 1530 DC 03/19 Dextrose IV 03/20 0800 1800 Dextrose/Water 500 ML Hydralazine HCl 5 MG ONCE ONE 03/20 0215 DC 03/20 IV 03/20 0216 0208 Hydralazine HCl 5 MG ONCE ONE 03/20 0015 DC 03/20 IV 03/20 0016 0023 Hydralazine HCl 10 MG ONCE ONE 03/19 2345 CAN IV 03/19 2346 Hydralazine HCl 5 MG ONCE ONE 03/19 2115 CAN IV 03/19 2116 Insulin Aspart 0 TIDAC 03/20 1200 AC SC Insulin Aspart 0 TIDAC 03/19 0800 DC 03/19 SC 03/20 0000 1615 Insulin Aspart 0 AT BEDTIME 03/18 2200 NM 03/19 [place] 03/20 0000 2229 Insulin Detemir 4 UNITS BID 03/20 2200 03/20 SC 1024 Insulin Detemir 8 UNITS BID 03/19 2200 NM 03/19 NJ 2229 Insulin Human Regular 0 Q6 03/19 2359 NM 03/20 SC 0538 Losartan Potassium 100 MG DAILY 03/19 1000 AC 03/20 PO 1026 Metoprolol Succinate 25 MG DAILY 03/19 1000 AC 03/20 PO 1026 Morphine Sulfate 2 MG Q6P PRN 03/18 2200 03/20 IV 0204 Pregabalin 50 MG TID 03/18 1737 AC 03/20 PO 1023 Sodium Chloride 1,000 ML Q10H 03/19 1530 DC 03/19 IV 1613 Tramadol HCl 50 MG Q6P PRN 03/18 2145 AC PO Results Last 48 Hrs of Labs/Mics: Laboratory Tests 03/20/17 0600: Sodium Cancelled, Potassium Cancelled, Chloride Cancelled, Carbon Dioxide Cancelled, Anion Gap Cancelled, BUN Cancelled, Creatinine Cancelled, BUN/ Creatinine Ratio Cancelled 03/20/17 0510: Anion Gap 17 H, Estimated GFR > 60, Glucose 253 H, Calcium 8.3 L, Phosphorus 3.5, Magnesium 1.9, Total Bilirubin 0.5, AST 22, ALT 38, Albumin 3.4 L, APTT 73 H, CBC w Diff NO MAN DIFF REQ, RBC 3.90 L, MCV 94.0, MCH 31.5 H, MCHC 33.5, RDW 13.5, MPV 9.1, Gran % 89.4 H, Lymphocytes % 5.5 L, Monocytes % 4.9, Eosinophils % 0.1, Basophils % 0.1, Absolute Granulocytes 14.1 H, Absolute Lymphocytes 0.9 L, Absolute Monocytes 0.8 H, Absolute Eosinophils 0, Absolute Basophils 0 03/20/17 0150: pH 7.44, pCO2 35, pO2 79 L, HCO3 23, ABG O2 Sat (Measured) 94.0 L, P-50 (Temp Corrected) Y, Carboxyhemoglobin 0.4 L, O2 Concentration % 40%, Temperature 99.9 , O2 Delivery Method V/M, Phlebotomy Draw Site RIGHT BRACHIAL 03/19/17 2330: APTT 47 H 03/19/17 1236: Troponin I 0.05 03/19/17 1221: Troponin I Cancelled 03/19/17 0951: Urinalysis LIGHT H, Urine Color YEL, Urine Clarity CLEAR, Urine pH 6.0, Ur Specific [place] 1.025, Urine Protein 30 H, Urine Ketones NEG, Urine Nitrite NEG, Urine Bilirubin NEG, Urine Urobilinogen 2.0 H, Ur Leukocyte Esterase NEG, Ur Microscopic SEDIMENT EXAMINED, Urine RBC 1-3, Urine WBC 1-3 H, Urine Mucus FEW, Urine Hemoglobin NEG, Urine Glucose >=1000 H 03/19/17 0705: Lactic Acid 0.8 03/19/17 0655: Anion Gap 13, Estimated GFR > 60, BUN/Creatinine Ratio 26.0 H, CBC w Diff NO MAN DIFF REQ, RBC 3.32 L, MCV 94.6 H, MCH 31.5 H, MCHC 33.3, RDW 13.4, MPV 9.2, Gran % 83.8 H, Lymphocytes % 7.5 L, Monocytes % 7.9, Eosinophils % 0.7, Basophils % 0.1, Absolute Granulocytes 9.6 H, Absolute Lymphocytes 0.9 L, Absolute Monocytes 0.9 H, Absolute Eosinophils 0.1, Absolute Basophils 0 03/18/17 1608: Lactic Acid Cancelled 03/18/17 1352: Anion Gap 16, Estimated GFR > 60, BUN/Creatinine Ratio 30.9 H, Glucose 201 H, Hemoglobin A1c 8.3 H, Lactic Acid 2.0, Calcium 9.0, Total Bilirubin 0.9, AST 25 , ALT 40, Alkaline Phosphatase 96, Troponin I 0.06, C-Reactive Prot, Quant > 9.0 H, Total Protein 6.8, Albumin 3.8, Globulin 3.0, Albumin/Globulin Ratio 1.3, CBC w Diff MAN DIFF ORDERED, RBC 3.97 L, MCV 94.7 H, MCH 31.6 H, MCHC 33.3, RDW 13.6, MPV 9.2, Gran % 84.5 H, Lymphocytes % 7.4 L, Monocytes % 6.8, Eosinophils % 1.0, Basophils % 0.3, Absolute Granulocytes 12.4 H, Absolute Lymphocytes 1.1 L, Absolute Monocytes 1.0 H, Absolute Eosinophils 0.2, Absolute Basophils 0, Platelet Estimate VERIFIED BY SMEAR, Normocytic RBCs VERIFIED, Normochromic RBCs VERIFIED, ESR [place]gren 88 H Microbiology 03/19 2337 NASOPHARYN: Influenza Virus A & B Rapid Smear - COMP 03/19 1310 UPPER RESP: Surveillance Culture - COMP METH RESIST STAPH AUREUS Assessment/Plan Assessment/Plan Assessment: 1. Hypertensive urgency 2. Peripheral arterial disease 3. History of current pacemaker 4. Diabetes 5. Right lower extremity cellulitis with gangrene 6. Leukocytosis Recommendations: * Continue losartan 100 mg daily * Continue amlodipine 5 mg daily * Continue to monitor blood pressure closely with Further doses of IV hydralazine as needed if the patient develops recurrence of severely elevated blood pressure readings * Serial troponins have been negative. * The patient is apparently scheduled for lower extremity amputation at some point. From a cardiac perspective, the patient's risk for any surgical procedures is clearly elevated in view of his underlying vascular disease, ill- defined coronary artery disease status, recent hypertensive urgency, abnormal left ventricular function on echocardiogram of 04/09/2016 with an ejection fraction of 45% at that time, prior elevated proBNP, and recent evidence of interstitial edema/CHF on chest x-ray etc. * Recheck proBNP * Continue to maintain negative fluid balance of possible. Continue telemetry? Yes
[2017-03-20 16:00] VITALS: BP 170/60
--- NOTE | 2017-03-20 16:34 | Operative Report ---
Operative/Inv Procedure Report Surgery Date: 03/20/17 Name of Procedure: 1 open incision and drainage deep to the deep fascia with exposure of the extensor and flexor tendon and tendon sheath multiple sites right foot 2 open, partial first ray resection right foot 3 intraoperative administration of ankle block anesthesia 4 excisional debridement Pre-Operative Diagnosis: 1 gangrene right great toe 2 osteomyelitis right foot 3 peripheral arterial disease Post-Operative Diagnosis: The same Estimated Blood Loss: less than 50ml Surgeon/Roving Can Tender: CARIDAD CAPONE DPM Anesthesia: moderate sedation, block Operative/Procedure Note Note: After obtaining informed consent the patient was brought to the operating room and placed on the operating table in the supine position. The patient isn't securely fastened to the operating table utilizing safety belt. After administration of IV sedation, 10 mL of 0.5% Marcaine plain was infiltrated about the patient's right ankle. The right foot and ankle within scrubbed prepped and draped in usual aseptic manner. Attention directed directed to the right foot, where a racquet-type incision encompassing the distal first ray was marked out with a skin marker. Full-thickness flaps were then developed dorsally and plantarly. The great toe was disarticulated at specimen was sent for both PICA biologic and pathologic inspection. The dissection was then carried down deep to the deep fascia with exposure of the extensor and flexor tendon and tendon sheath multiple site right foot. All necrotic nonviable infected tissue sharply evacuated wound bed.nipple was then irrigated with 3 L of normal sterile saline fissure 50,000 units of bacitracin. Following this, the foot was redraped and surgeon's top was changed clean gloves. Any bleeding vessels identified were cauterized or ligated as encountered. Nipple was then packed with wet-to-dry dressing followed by 4 x 4's Kerlix and an Romero wrap. The patient is noted tolerate both procedure and anesthesia well and the patient was transported from the operating room to recovery.
[2017-03-20 23:00] VITALS: BP 140/70
[2017-03-21 05:51] LABS: ABSOLUTE BASOPHIL COUNT 0 /CUMM (0.0-0.2); ABSOLUTE EOSINOPHIL COUNT 0 /CUMM (0.0-0.7); ABSOLUTE LYMPH COUNT 0.9 /CUMM (1.2-3.4); ABSOLUTE MONOCYTE COUNT 0.9 /CUMM (0.10-0.60); BASOPHIL % 0.3 % (0.0-2.0); EOSINOPHIL % 0.4 % (0-5); GRANULOCYTE % 82.8 % (42.2-75.2); HEMATOCRIT 33.7 % (42-52); MEAN CORPUSCULAR HGB 31.6 PG (27.0-31.0); MEAN CORPUSCULAR HGB CONC 33.1 G/DL (33.0-37.0); MEAN CORPUSCULAR VOLUME 95.3 FL (80.0-94.0); MEAN PLATELET VOLUME 9.4 FL (7.4-10.4); PLATELET COUNT 302 /CUMM (130-400); RBC DISTRIBUTION WIDTH 13.5 % (11.5-14.5); RED BLOOD CELL CT 3.53 /CUMM (4.70-6.10); WHITE BLOOD CELL COUNT 10.8 /CUMM (4.8-10.8)
[2017-03-21 08:00] VITALS: BP 170/70
--- NOTE | 2017-03-21 08:26 | PN- Resident CRCU ---
Subjective HPI/CRCU Issues: Hypertensive Urgency Right toe gangrene Altered Mental Status 24 Hour Events: No acute events overnight. White count normalized this morning. He went for surgical debridement with Dr Moreno yesterday. Patient was seen and examined this morning. He is awake, alert and oriented x2. He has some idea why he was admitted. complains of having mild pain in his right foot. Objective Vital Signs & I&O Last 8 Hrs of Vitals and I&O: . Exam General Appearance: alert, awake, mild distress Head: atraumatic, normal appearance Respiratory: normal breath sounds, chest non-tender, lungs clear Cardiovascular: regular rate/rhythm Gastrointestinal: soft, non-tender Extremities: no edema, right foot in dressing/bea wraps Cranial Nerves: normal hearing, normal speech Skin Temp/Moisture Exam: Warm/Dry Sepsis Skin Exam (color): Normal for Ethnicity Current Medications: Current Medications Sig/Coral Start time Last Medication Dose Route Stop Time Status Admin Acetaminophen 1,000 MG Q8P PRN 03/20 2345 AC 03/20 N/A 1 UNIT IV 2341 Acetaminophen 650 MG Q8P PRN 03/18 2145 AC PO Amlodipine Besylate 5 MG DAILY 03/20 1000 AC 03/20 PO 1025 Ampicillin Sodium/ 1,500 MG Q6 03/19 2359 AC 03/21 Sulbactam Sodium IV 0504 Sodium Chloride 50 ML Aspirin 81 MG DAILY 03/18 1733 AC 03/20 PO 1025 Atorvastatin Calcium 40 MG 1700 03/20 1700 AC 03/20 PO 1738 Benzonatate 100 MG TID 03/20 2200 AC 03/20 PO 2122 Dextrose/Sodium 1,000 ML Q13H 03/21 0900 AC Chloride IV Fentanyl Citrate 100 MCG .STK-MED ONE 03/20 1522 DC IM 03/20 1523 Insulin Aspart 0 TIDAC 03/20 1200 AC 03/20 SC 1342 Insulin Detemir 4 UNITS BID 03/20 2200 AC 03/20 SC 2123 Losartan Potassium 100 MG DAILY 03/19 1000 AC 03/20 PO 1026 Metoprolol Succinate 25 MG DAILY 03/19 1000 AC 03/20 PO 1026 Morphine Sulfate 2 MG Q4P PRN 03/20 2130 AC 03/21 IV 0133 Morphine Sulfate 2 MG Q6P PRN 03/18 2200 DC 03/20 IV 1735 Olanzapine 5 MG ONCE ONE 03/20 2330 DC 03/20 IM 03/20 2331 2320 Olanzapine 5 MG ONCE PRN 03/20 2015 DC IM 03/20 2300 Olanzapine 5 MG ONCE ONE 03/20 1845 CAN IM 03/20 1846 Pregabalin 50 MG TID 03/18 1737 AC 03/20 PO 2123 Tramadol HCl 50 MG Q6P PRN 03/18 2145 AC 03/21 PO 0104 Impression/Plan Impression/Problem List Impression: 71-year-old male with a past medical history significant for hypertension, hyperlipidemia, pacemaker placed 4-5 years ago, diabetes type 1 since he was 14 years old managed on an insulin pump at home admitted to the intensive care for hypertensive urgency. Assessment and Plan: Cellulitis/Gangrene of Right Foot: * He appears to have cellulitis of his right foot along with gangrene of his right toe. * Will continue him on IV Unasyn 1.5g q6. * His white count has trended down today. * Had surgical debridement with Dr Moreno yesterday. * Will follow up OR cultures. * His CT runoff 03/19 showed significant lower extremity PVD. He will have an angiogram on Thursday. * Further management of PVD after angio and as per Vascular * Stable to be downgraded to telemetry. ?UTI: * His urine was growing gram positive cocci * Today the lab informs that it is growing several colonies and the specimen is contaminted. * Will send a fresh sample for culture today. Hypertensive Urgency: * His blood pressure was found to be severely elevated 03/19, 260/0 by doppler which prompted the ICU admission. He had been asymptomatic. * His blood pressure is on the higher side. He may require some adjustments in his blood pressure regimen. * Will monitor blood pressure closely and use IV hydralazine for any acute rise in blood pressure. * Repeat proBNP level was 6860. * On 5L O2 via NC. Will wean off as tolerated. * Appreciate cardiology recs. History of hypertension * Continue amlodipine 5mg, metoprolol 25mg and Losartan 100mg daily Diabetic neuropathy * Continue Neurontin 50 mg TID DVT prophylaxis Subcutaneous heparin CODE STATUS DNR/DNI Problem List: 1. Peripheral vascular disease Pain Ratin Tomorrow's Labs & Rationales: CBC, BEP Plan DVT/Prophylaxis: mechanical
--- NOTE | 2017-03-21 10:03 | PN- Pulmonary ---
Subjective HPI/Critical Care Issues: Patient is awake alert without respiratory complaints. Blood pressures improved Objective Current Medications: Current Medications Sig/Coral Start time Last Medication Dose Route Stop Time Status Admin Acetaminophen 1,000 MG Q8P PRN 03/20 2345 03/20 N/A 1 UNIT IV 2341 Acetaminophen 650 MG Q8P PRN 03/18 2145 AC PO Amlodipine Besylate 5 MG DAILY 03/20 1000 AC 03/20 PO 1025 Ampicillin Sodium/ 1,500 MG Q6 03/19 2359 AC 03/21 Sulbactam Sodium IV 0504 Sodium Chloride 50 ML Aspirin 81 MG DAILY 03/18 1733 AC 03/20 PO 1025 Atorvastatin Calcium 40 MG 1700 03/20 1700 03/20 PO 1738 Benzonatate 100 MG TID 03/20 2200 03/20 PO 2122 Dextrose/Sodium 1,000 ML Q13H 03/21 0900 AC Chloride IV Fentanyl Citrate 100 MCG .STK-MED ONE 03/20 1522 DC IM 03/20 1523 Insulin Aspart 0 TIDAC 03/20 1200 03/20 SC 1342 Insulin Detemir 4 UNITS BID 03/20 2200 03/20 SC 2123 Insulin Detemir 8 UNITS BID 03/19 2200 MS 03/19 SC 2229 Insulin Human Regular 0 Q6 03/19 2359 MS 03/20 SC 0538 Losartan Potassium 100 MG DAILY 03/19 1000 03/20 PO 1026 Metoprolol Succinate 25 MG DAILY 03/19 1000 03/20 PO 1026 Morphine Sulfate 2 MG Q4P PRN 03/20 2130 03/21 IV 0133 Morphine Sulfate 2 MG Q6P PRN 03/18 2200 MS 03/20 IV 1735 Olanzapine 5 MG ONCE ONE 03/20 2330 DC 03/20 IM 03/20 2331 2320 Olanzapine 5 MG ONCE PRN 03/20 2014 DC IM 03/20 2300 Olanzapine 5 MG ONCE ONE 03/20 1845 CAN IM 03/20 1846 Pregabalin 50 MG TID 03/18 1737 03/20 PO 2123 Tramadol HCl 50 MG Q6P PRN 03/18 2145 03/21 PO 0104 Vital Signs & I&O Last 24 Hrs of Vitals and I&O: Vital Signs Date Time Temp Pulse Resp B/P B/P Pulse O2 O2 Flow FiO2 Mean Ox Delivery Rate 03/21 0400 98 Nasal 5.0L Cannula 03/21 0136 99.2 03/21 0044 100.3 03/21 0000 98 Nasal 5.0L Cannula 03/20 2341 100.0 03/20 2300 100.0 71 17 140/70 98 Nasal 5.0L Cannula 03/20 2000 98 Nasal 5.0L Cannula 03/20 1600 96 Nasal 4.0L Cannula 03/20 1600 98.0 90 26 170/60 96 Nasal 4.0L Cannula 03/20 1200 96 Nasal 5.0L Cannula 03/20 1026 94 150/50 03/20 1026 150/50 03/20 1025 90 150/50 Intake & Output 03/21 1600 03/21 0800 03/21 0000 Intake Total 460 480 Output Total 210 200 Balance 250 280 Intake, IV 340 120 Intake, Oral 120 360 Number 0 Bowel Movements Output, Urine 210 200 Oxygen saturation 5 L 98% exam of his chest shows clear lung cavazos cardiac exam shows a regular S1 and S2 without murmurs Impression/Plan Impression/Plan Impression/Plan: 71-year-old gentleman admitted with cellulitis transferred to the ICU for hypertensive urgency. Pressures are better controlled. Recommendations: Follow-up urine cultures and adjust antibiotics accordingly. Patient can be transferred out of the intensive care unit. Taper FiO2 his saturations allow.
--- NOTE | 2017-03-21 14:19 | PN- Diabetes ---
Assessment/Plan Assessment: This patient has type 1 diabetes mellitus and presents with a cellulitis of the right foot and necrosis of the right great toe. The patient was transferred to the intensive care unit because of hypertension. He also went into congestive heart failure. The patient is using on an insulin pump at home. Currently he is on Levemir 4 units twice a day, Novolog coverage before meals and Novolog coverage at bedtime. He is less confused today and finished more than 50% of his lunch. His FSGs were 275, 155 and 217. Plan: 1. increase Levemir to 6 units twice a day; 2. adjust Novolog coverage before meals; detail see the inpatient DM orders; 3. monitor FSGs. will follow. Inpatient Diabetes Orders Before Each Meal: Bolus Insulin: Novolog < 80 mg/dl: no coverage 80-100 mg/dl: 3 units 101-120 mg/dl: 3 units 121-150 mg/dl: 3 units 151-200 mg/dl: 4 units 201-250 mg/dl: 5 units 251-300 mg/dl: 6 units 301-350 mg/dl: 7 units 351-400 mg/dl: 8 units > 400 mg/dl: 9 units Bedtime: Bolus Insulin: Novolog < 80 mg/dl: no coverage 80-100 mg/dl: no coverage 101-120 mg/dl: no coverage 121-150 mg/dl: no coverage 151-200 mg/dl: no coverage 201-250 mg/dl: no coverage 251-300 mg/dl: 2 units 301-350 mg/dl: 3 units 351-400 mg/dl: 4 units > 400 mg/dl: 5 units Subjective Subjective: He is less confused today. Objective Last 24 Hrs of Vital Signs/I&O Vital Signs Date Time Temp Pulse Resp B/P B/P Pulse O2 O2 Flow FiO2 Mean Ox Delivery Rate 03/21 1144 90 172/57 03/21 1144 90 172/57 03/21 1143 94 172/52 03/21 0400 98 Nasal 5.0L Cannula 03/21 0136 99.2 03/21 0044 100.3 03/21 0000 98 Nasal 5.0L Cannula 03/20 2341 100.0 03/20 2300 100.0 71 17 140/70 98 Nasal 5.0L Cannula 03/20 2000 98 Nasal 5.0L Cannula 03/20 1600 96 Nasal 4.0L Cannula 03/20 1600 98.0 90 26 170/60 96 Nasal 4.0L Cannula Intake & Output 03/21 1600 03/21 0800 03/21 0000 Intake Total 460 480 Output Total 210 200 Balance 250 280 Intake, IV 340 120 Intake, Oral 120 360 Number 0 Bowel Movements Output, Urine 210 200 Findings Pertinent Lab/Fransisco Results: Laboratory Tests 03/21 03/20 0409 1730 Chemistry Sodium (137 - 145 mmol/L) 145 Potassium (3.5 - 5.1 mmol/L) 4.2 Chloride (98 - 107 mmol/L) 101 Carbon Dioxide (22 - 30 mmol/L) 30 Anion Gap (5 - 16) 14 BUN (9 - 20 mg/dL) 29 H Creatinine (0.7 - 1.2 mg/dL) 1.1 Estimated GFR (>60 ml/min) > 60 Glucose (65 - 99 mg/dL) 176 H Calcium (8.4 - 10.2 mg/dL) 8.3 L Phosphorus (2.5 - 4.5 mg/dL) 4.4 Magnesium (1.6 - 2.3 mg/dL) 2.0 Total Bilirubin (0.2 - 1.3 mg/dL) 0.6 AST (17 - 59 U/L) 25 ALT (21 - 72 U/L) 31 Albumin (3.5 - 5.0 g/dL) 3.0 L Coagulation APTT Cancelled Hematology CBC w Diff NO MAN DIFF REQ WBC (4.8 - 10.8 /CUMM) 10.8 RBC (4.70 - 6.10 /CUMM) 3.53 L Hgb (14.0 - 18.0 G/DL) 11.2 L Hct (42 - 52 %) 33.7 L MCV (80.0 - 94.0 FL) 95.3 H MCH (27.0 - 31.0 PG) 31.6 H MCHC (33.0 - 37.0 G/DL) 33.1 RDW (11.5 - 14.5 %) 13.5 Plt Count (130 - 400 /CUMM) 302 MPV (7.4 - 10.4 FL) 9.4 Gran % (42.2 - 75.2 %) 82.8 H Lymphocytes % (20.5 - 51.1 %) 8.5 L Monocytes % (1.7 - 9.3 %) 8.0 Eosinophils % (0 - 5 %) 0.4 Basophils % (0.0 - 2.0 %) 0.3 Absolute Granulocytes (1.4 - 6.5 /CUMM) 9.0 H Absolute Lymphocytes (1.2 - 3.4 /CUMM) 0.9 L Absolute Monocytes (0.10 - 0.60 /CUMM) 0.9 H Absolute Eosinophils (0.0 - 0.7 /CUMM) 0 Absolute Basophils (0.0 - 0.2 /CUMM) 0
--- NOTE | 2017-03-21 14:51 | PN- Cardiology ---
Subjective Subjective: Feeling better. Blood pressure still slightly improved but still elevated. No chest pain. No shortness of breath. No palpitations. No diaphoresis. Objective Vital Signs and I&Os Vital Signs Date Time Temp Pulse Resp B/P B/P Pulse O2 O2 Flow FiO2 Mean Ox Delivery Rate 03/21 1144 90 172/57 03/21 1144 90 172/57 03/21 1143 94 172/52 03/21 0400 98 Nasal 5.0L Cannula 03/21 0136 99.2 03/21 0044 100.3 03/21 0000 98 Nasal 5.0L Cannula 03/20 2341 100.0 03/20 2300 100.0 71 17 140/70 98 Nasal 5.0L Cannula 03/20 2000 98 Nasal 5.0L Cannula 03/20 1600 96 Nasal 4.0L Cannula 03/20 1600 98.0 90 26 170/60 96 Nasal 4.0L Cannula Intake & Output 03/21 1600 03/21 0800 03/21 0000 03/20 1600 03/20 0800 03/20 0000 Intake Total 460 480 200 235.9 969 Output Total 210 530 270 5533 275 Balance 250 .1 694 Intake, IV 340 120 100 235.9 819 Intake, Oral 120 360 100 0 150 Number 0 1 0 0 Bowel Movements Output, Urine 210 193 638 2237 275 Patient 174 lb Weight Weight Bed scale Measurement Method Physical Exam: Gen: The patient is in no acute distress HEENT: Normal nose, ears, and oropharynx. Pupils equal bilaterally. Conjunctiva normal. Neck: Supple with no JVD, no masses, and no thyromegaly Lungs: Clear to auscultation with normal respiratory effort Heart: RRR, S1, S2, no murmurs. No peripheral edema, pulse nonpalpable in the right lower extremity, and decreased in the left lower extremity Abdomen: Soft, nontender, no masses. No hepatomegaly. No splenomegaly Extremities: No clubbing or cyanosis. Normal muscle strength in the upper and lower extremities Skin: Right foot erythema. Normal skin turgor. Neuro: Cranial nerves intact. Sensation intact Current Medications: Current Medications Sig/Coral Start time Last Medication Dose Route Stop Time Status Admin Acetaminophen 1,000 MG Q8P PRN 03/20 2345 AC 03/20 N/A 1 UNIT IV 2340 Acetaminophen 650 MG Q8P PRN 01/24 2145 AC PO Amlodipine Besylate 10 MG DAILY 03/22 1000 UNVr PO Amlodipine Besylate 5 MG DAILY 03/20 1000 DC 03/21 PO 1143 Ampicillin Sodium/ 1,500 MG Q6 03/19 2359 AC 03/21 Sulbactam Sodium IV 0504 Sodium Chloride 50 ML Aspirin 81 MG DAILY 03/18 1733 AC 03/21 PO 1144 Atorvastatin Calcium 40 MG 1700 03/20 1700 AC 03/20 PO 1738 Benzonatate 100 MG TID 03/20 2200 AC 03/21 PO 1144 Dextrose/Sodium 1,000 ML Q13H 03/21 0900 DC 03/21 Chloride IV 1151 Fentanyl Citrate 100 MCG .STK-MED ONE 03/20 1522 DC IM 03/20 1523 Insulin Aspart 0 TIDAC 03/20 1200 AC 03/20 SC 1342 Insulin Detemir 6 UNITS BID 03/21 2200 SC Insulin Detemir 4 UNITS BID 03/20 2200 DC 03/21 SC 1151 Losartan Potassium 100 MG DAILY 03/19 1000 AC 03/21 PO 1144 Metoprolol Succinate 25 MG DAILY 03/19 1000 AC 03/21 PO 1144 Morphine Sulfate 2 MG Q4P PRN 03/20 2130 AC 03/21 IV 0133 Morphine Sulfate 2 MG Q6P PRN 03/18 2200 DC 03/20 IV 1735 Olanzapine 5 MG ONCE ONE 03/20 2330 DC 03/20 IM 03/20 2331 2320 Olanzapine 5 MG ONCE PRN 03/20 2015 DC IM 03/20 2300 Olanzapine 5 MG ONCE ONE 03/20 1845 CAN IM 03/20 1846 Pregabalin 50 MG TID 03/18 1737 AC 03/21 PO 1151 Tramadol HCl 50 MG Q6P PRN 03/18 2145 03/21 PO 0104 Results Last 48 Hrs of Labs/Mics: Laboratory Tests 03/21/17 0409: Anion Gap 14, Estimated GFR > 60, Glucose 176 H, Calcium 8.3 L, Phosphorus 4.4 , Magnesium 2.0, Total Bilirubin 0.6, AST 25, ALT 31, Albumin 3.0 L, CBC w Diff NO MAN DIFF REQ, RBC 3.53 L, MCV 95.3 H, MCH 31.6 H, MCHC 33.1, RDW 13.5, MPV 9.4, Gran % 82.8 H, Lymphocytes % 8.5 L, Monocytes % 8.0, Eosinophils % 0.4, Basophils % 0.3, Absolute Granulocytes 9.0 H, Absolute Lymphocytes 0.9 L, Absolute Monocytes 0.9 H, Absolute Eosinophils 0, Absolute Basophils 0 03/20/17 1730: APTT Cancelled 03/20/17 0600: Sodium Cancelled, Potassium Cancelled, Chloride Cancelled, Carbon Dioxide Cancelled, Anion Gap Cancelled, BUN Cancelled, Creatinine Cancelled, BUN/ Creatinine Ratio Cancelled 03/20/17 0510: Anion Gap 17 H, Estimated GFR > 60, Glucose 253 H, Calcium 8.3 L, Phosphorus 3.5, Magnesium 1.9, Total Bilirubin 0.5, AST 22, ALT 38, Qib-N-Mvmhpodtsqr Pept 6860 H, Albumin 3.4 L, APTT 73 H, CBC w Diff NO MAN DIFF REQ, RBC 3.90 L, MCV 94.0, MCH 31.5 H, MCHC 33.5, RDW 13.5, MPV 9.1, Gran % 89.4 H, Lymphocytes % 5.5 L, Monocytes % 4.9, Eosinophils % 0.1, Basophils % 0.1, Absolute Granulocytes 14.1 H, Absolute Lymphocytes 0.9 L, Absolute Monocytes 0.8 H, Absolute Eosinophils 0, Absolute Basophils 0 03/20/17 0150: pH 7.44, pCO2 35, pO2 79 L, HCO3 23, ABG O2 Sat (Measured) 94.0 L, P-50 (Temp Corrected) Y, Carboxyhemoglobin 0.4 L, O2 Concentration % 40%, Temperature 99.9 , O2 Delivery Method V/M, Phlebotomy Draw Site RIGHT BRACHIAL 03/19/172329: APTT 47 H Microbiology 03/19 2336 NASOPHARYN: Influenza Virus A & B Rapid Smear - COMP 03/19 1729 URINE ROUT: Urine Culture - COMP Assessment/Plan Assessment/Plan Assessment: 1. Hypertensive urgency, improved 2. Peripheral arterial disease 3. History of current pacemaker 4. Diabetes 5. Right lower extremity cellulitis with gangrene 6. Leukocytosis Plan: * Increase amlodipine to 10 mg daily. * Continue other cardiac medications. * Okay for transfer to general medical floor from cardiac standpoint Continue telemetry? No
[2017-03-21 16:00] VITALS: BP 150/80
[2017-03-21 17:47] VITALS: BP 140/60
[2017-03-21 23:07] VITALS: BP 156/64
--- NOTE | 2017-03-22 07:14 | Event Note ---
Event Note Event Note: paged by nurse pt's BP 200/60 I went in and evaluated the patient. Patient is completely asymptomatic does not complain of any change in the vison or any headaches. Patient has no complaints other than nasal dryness- BP left arm 190/80 BP right arm 150/80 -we will recheck in one hour, if patient's blood pressure is persistently elevated consider giving antihypertensive regimen earlier. -Saline nasal spray ordered
--- NOTE | 2017-03-22 08:27 | PN- Housestaff ---
Gisella LOZANO,Anne 03/22/17 08: Subjective Follow-up For: RIGHT FOOT CELLULITIS AND GANGRENE PVD UNCONTROLLED DIABETES MELLITUS Subjective: PATIENT IS FEELING OK TODAY. NO COMPLAINTS. PATIENT ANXIOUS ABOUT HOSPITAL COURSE. HE HAS RED URINE TODAY. Review of Systems Constitutional: Reports: no symptoms. Cardiovascular: Reports: no symptoms. Respiratory: Reports: no symptoms. Gastrointestinal: Reports: no symptoms. Genitourinary: Reports: hematuria. Musculoskeletal: Reports: no symptoms. Skin: Reports: no symptoms. Objective Last 24 Hrs of Vital Signs/I&O Vital Signs Date Time Temp Pulse Resp B/P B/P Pulse O2 O2 Flow FiO2 Mean Ox Delivery Rate 03/22 1600 Nasal 2.0L Cannula 03/22 1522 97.9 63 22 120/60 97 03/22 1037 140/80 03/22 1035 140/80 03/22 1035 140/80 03/22 0800 97 Nasal 2.0L Cannula 03/21 2307 98.8 80 24 156/64 97 Nasal Cannula Intake & Output 03/22 1600 03/22 0800 03/22 0000 Intake Total 1320 550 200 Output Total 450 650 Balance 870 550 -450 Intake, IV 150 250 Intake, Oral 1170 300 200 Number 2 Bowel Movements Output, Urine 450 650 Physical Exam General Appearance: Alert, Oriented X3, Cooperative, No Acute Distress Skin: No Rashes, No Breakdown, No Significant Lesion Skin Temp/Moisture Exam: Warm/Dry Sepsis Skin Exam (color): Normal for Ethnicity HEENT: Atraumatic, PERRLA, EOMI, Mucous Membr. moist/pink Cardiovascular: Regular Rate, Normal S1, Normal S2, No Murmurs Lungs: Clear to Auscultation, Normal Air Movement Abdomen: Normal Bowel Sounds, Soft, No Tenderness Extremities: No Clubbing, No Cyanosis, DECREASED PULSES, PATIENT HAS DECREASED SENSATION THROUGHOUT Current Medications: Current Medications Sig/Coral Start time Last Medication Dose Route Stop Time Status Admin Acetaminophen 1,000 MG Q8P PRN 03/20 2345 AC 03/20 N/A 1 UNIT IV 2341 Acetaminophen 650 MG Q8P PRN 03/18 2145 AC PO Amlodipine Besylate 10 MG DAILY 03/22 1000 AC 03/22 PO 1035 Ampicillin Sodium/ 1,500 MG Q6 03/19 2359 AC 03/22 Sulbactam Sodium IV 1758 Sodium Chloride 50 ML Aspirin 81 MG DAILY 03/18 1733 AC 03/22 PO 1036 Atorvastatin Calcium 40 MG 1700 03/20 1700 AC 03/22 PO 1657 Benzonatate 100 MG TID 03/20 2200 AC 03/22 PO 1657 Insulin Aspart 0 TIDAC/HS 03/22 1210 AC 03/22 SC 1658 Insulin Aspart 0 TIDAC 03/20 1200 DC 03/22 SC 0820 Insulin Detemir 10 UNITS BID 03/22 2200 SC Insulin Detemir 5 UNITS ONCE ONE 03/22 1215 DC 03/22 SC 03/22 1216 1220 Insulin Detemir 6 UNITS BID 03/21 2200 TX 03/22 SC 1036 Lactobacillus 1 CAP DAILY 03/22 1000 AC 03/22 Acidophilus PO 1204 Losartan Potassium 100 MG DAILY 03/19 1000 AC 03/22 PO 1035 Metoprolol Succinate 25 MG DAILY 03/19 1000 AC 03/22 PO 1037 Morphine Sulfate 2 MG Q4P PRN 03/20 2130 AC 03/21 IV 0133 Pregabalin 50 MG TID 03/18 1737 AC 03/22 PO 1657 Sodium Chloride 2 SPRAY Q4P PRN 03/22 0800 AC THOMAS Tramadol HCl 50 MG Q6P PRN 03/18 2145 AC 03/21 PO 1853 Last 24 Hrs of Lab/Fransisco Results Last 24 Hrs of Labs/Mics: Laboratory Tests 03/22/17 0844: Anion Gap 13, Estimated GFR > 60, BUN/Creatinine Ratio 37.0 H, Phosphorus 3.5, Magnesium 2.3, CBC w Diff NO MAN DIFF REQ, RBC 3.47 L, MCV 94.4 H, MCH 31.5 H , MCHC 33.3, RDW 13.3, MPV 9.3, Gran % 90.5 H, Lymphocytes % 5.8 L, Monocytes % 2.2, Eosinophils % 1.1, Basophils % 0.4, Absolute Granulocytes 10.5 H, Absolute Lymphocytes 0.7 L, Absolute Monocytes 0.3, Absolute Eosinophils 0.1, Absolute Basophils 0 Microbiology 03/22 0855 STOOL: Clostridium difficile Toxin A & B - CAN Cancelled: Cancelled via OE: Duplicate Order Assessment/Plan Assessment: Patient is a 71-year-old male with a past medical history significant for hypertension, hyperlipidemia, pacemaker placed 4-5 years ago, SILENT [place] PER SON, diabetes type 1 since he was 14 years old currently on an insulin pump, MILD COGNITIVE IMPAIRMENT WORKED UP BY DR. MORATAYA PRESUMED TO BE ONSET DEMENTIA, that comes to us for right foot erythema, edema of 10 days duration with the development of eschar/dark blood underneath the skin for the past 1 day. The patient recently has had poor glucose control and has seen his primary care physician Estuardo Adame MD for better control. The patient also sees a rigging and controls aircraft mechanic for his diabetic feet which have caused him balance issues in the recent years. The patient came here 5 days ago and was given Keflex and told to follow-up outpatient. However his skin issues have worsened since then. The patient also complains of one-month history of productive cough. In the ED the patient's vitals were temperature 97.5, heart rate 73, respiratory rate 16, blood pressure 125/53, 96% oxygen saturation on room air. Pertinent labs were sodium 144, potassium 4, creatinine 1.1, glucose 201, lactic acid 2.0, CRP greater than 9, WBC 14.7, hemoglobin 12.5. X-ray was done and showed no bony erosive or distractive changes. Tiny flecks of calcification in the soft tissue. No evidence of acute fracture. Venous Doppler showed no evidence of DVT. EKG was unchanged from March 2016 with a rate of 62 normal sinus rhythm deep S waves in V3. Patient was admitted to general medicine floors for evaluation and treatment of the following: #1 cellulitis of right foot #2 uncontrolled diabetes mellitus -HE WAS FOUND ON DUPLEX SCAN LOWER EXT TO HAVE NO FLOW IN HIS POSTERIOR TIBIAL ARTERIES AND HEAVILY CALCIFIED PLAQUE IN AORTA AND ILIAC VESSELS BUT NO FOCAL STENOSIS. -EXTREMITY VENOUS SCAN SHOWED NO DVT -REPEAT LA STILL NEGATIVE Plan #1 cellulitis of right foot Follow blood cultures Continue Unasyn 1.5 g every 6 hours SPOKE WITH VASC SURGERY LAST NIGHT WHO SAID THEY WOULD SEE THE PATIENT TODAY. THIS MORNING WE GOT RESULTS FROM DUPLEX SHOWING NO FLOW IN POSTERIOR TIBIAL ARTERIES AND PLACED CALL TWO TIMES TO VASCULAR FOR URGENT CALL BACK BUT GOT NO RESPONSE. Podiatry has been consulted AND HAD RIGHT GREAT TOE AMPUTATON ON THURSDAY OR CULTURE SHOWED STAPH AUREUS, SUSCEPTIBILITY TO COME. #2 uncontrolled diabetes mellitus Estuardo Adame MD, his PCP and modeling and simulation analyst has been consulted RECOMMENDATIONS WERE PUT IN LAST NIGHT BUT TODAY UPDATED. WE DECREASED BID LEVEMIR FROM 10 TO 8, AND ADJUSTED THE INSULIN SS COVERAGE. #3 EVENT PATIENT FOUND TO HAVE NO BP READINGS ON CUFF. NO SYMPTOMS AT THE TIME. DOPPLER SHOWED AT LEAST 220 SYSTOLIC BUT WAS UNRELIABLE PROBABLY SECONDARY TO HIS PVD. WE GAVE ONE DOSE OF HYDRALAZINE AND CONTACTED DR. WYNNE WHO IS PATENT PROSECUTION PARALEGAL FOR PTS NORMAL IMPORT EXPORT MANAGER DR. DUVALL WHO SAID TO TRANSFER PATIENT TO TELE (NO BEDS SO WILL GO TO ICU), HE REVIEWED EKG, PATIENT IS PACED AND DR. WYNNE IS NOT CONCERNED WITH WHAT WE THOUGHT MAY BE ST ELEVATIONS, HE SAID HOLD OFF ON CTA CHEST FOR AORTIC DISSECTION. PATIENT IS NOW BACK FROM ICU #4 hematuria LIKELY FROM TRAUMATIC LOPEZ. patient not on AC. will monitor. urine culture negative. DNR DNI CC DIET Problem List: 1. Peripheral vascular disease 2. Cellulitis Pain Ratin Pain Location: NA Pain Goal: Remain pain free Pain Plan: PATHWAY Tomorrow's Labs & Rationales: CBC BEP Edna Covarrubiasrobles 03/22/17 1650: Attending MD Review Statement Attending Statement Attending MD Statement: examined this patient, discuss w/resident/PA/DATA SCIENCE AND IOT MANAGER, agreed w/resident/PA/DATA SCIENCE AND IOT MANAGER, reviewed EMR data (avail) Attending Assessment/Plan: Foot culture growing S aureus- will cont on unasyn. wbc stable and improved. will f/u on final culture results and adjust abx accordingly. Severe PVD with gangrene s/p amputation of the toe and partial 1st ray resection rt foot- pt going for angiogram tomorrow with vascular. Encouraged po hydration. d/w pt the care plan.
[2017-03-22 09:23] LABS: ABSOLUTE BASOPHIL COUNT 0 /CUMM (0.0-0.2); ABSOLUTE EOSINOPHIL COUNT 0.1 /CUMM (0.0-0.7); ABSOLUTE GRANULOCYTE CT 10.5 /CUMM (1.4-6.5); ABSOLUTE LYMPH COUNT 0.7 /CUMM (1.2-3.4); ABSOLUTE MONOCYTE COUNT 0.3 /CUMM (0.10-0.60); BASOPHIL % 0.4 % (0.0-2.0); EOSINOPHIL % 1.1 % (0-5); HEMATOCRIT 32.8 % (42-52); MEAN CORPUSCULAR HGB 31.5 PG (27.0-31.0); MEAN CORPUSCULAR HGB CONC 33.3 G/DL (33.0-37.0); MEAN CORPUSCULAR VOLUME 94.4 FL (80.0-94.0); MEAN PLATELET VOLUME 9.3 FL (7.4-10.4); PLATELET COUNT 350 /CUMM (130-400); RBC DISTRIBUTION WIDTH 13.3 % (11.5-14.5); RED BLOOD CELL CT 3.47 /CUMM (4.70-6.10); WHITE BLOOD CELL COUNT 11.6 /CUMM (4.8-10.8)
[2017-03-22 11:41] LABS: GRANULOCYTE % 90.5 % (42.2-75.2)
--- NOTE | 2017-03-22 12:16 | PN- Diabetes ---
Assessment/Plan Assessment: This patient has type 1 diabetes mellitus and presents with a cellulitis of the right foot and necrosis of the right great toe. The patient was transferred to the intensive care unit because of hypertension. He also went into congestive heart failure. The patient was using on an insulin pump at home. Currently he is on Levemir 6 units twice a day, Novolog coverage before meals and Novolog coverage at bedtime. He has been eating meals better. His FSGs were 289 and 344 today. Plan: 1. Levemir 5 units x1 as his FSG is 344 at lunch time; 2. starting tonight, he will be on Levemir 10 units twice a day; 3. adjust Novolog coverage before meals; detail see the inpatient DM order; 4. continue the current Novolog coverage at bedtime; 5. monitor FSGs at 2:30 pm today and then AC tid and bedtime. will follow. Inpatient Diabetes Orders Before Each Meal: Bolus Insulin: Novolog < 80 mg/dl: no coverage 80-100 mg/dl: 5 units 101-120 mg/dl: 5 units 121-150 mg/dl: 5 units 151-200 mg/dl: 6 units 201-250 mg/dl: 7 units 251-300 mg/dl: 8 units 301-350 mg/dl: 9 units 351-400 mg/dl: 10 units > 400 mg/dl: 11 units Subjective Subjective: His glucose level has been elevated after his meal intake improved. Objective Last 24 Hrs of Vital Signs/I&O Vital Signs Date Time Temp Pulse Resp B/P B/P Pulse O2 O2 Flow FiO2 Mean Ox Delivery Rate 03/22 1037 140/80 03/22 1035 140/80 03/22 1035 140/80 03/22 0800 97 Nasal 2.0L Cannula 03/21 2307 98.8 80 24 156/64 97 Nasal Cannula 03/21 2200 Nasal 4.0L Cannula 03/21 1747 99.0 91 20 140/60 99 Nasal Cannula 03/21 1600 98.0 80 20 150/80 94 Non 4.0L ReBreather Intake & Output 03/22 1600 03/22 0800 03/22 0000 Intake Total 550 200 Output Total 650 Balance 550 -450 Intake, IV 250 Intake, Oral 300 200 Number 1 Bowel Movements Output, Urine 650 Findings Pertinent Lab/Fransisco Results: Laboratory Tests 03/22 0844 Chemistry Sodium (137 - 145 mmol/L) 143 Potassium (3.5 - 5.1 mmol/L) 4.4 Chloride (98 - 107 mmol/L) 101 Carbon Dioxide (22 - 30 mmol/L) 29 Anion Gap (5 - 16) 13 BUN (9 - 20 mg/dL) 37 H Creatinine (0.7 - 1.2 mg/dL) 1.0 Estimated GFR (>60 ml/min) > 60 BUN/Creatinine Ratio (7 - 25 %) 37.0 H Phosphorus (2.5 - 4.5 mg/dL) 3.5 Magnesium (1.6 - 2.3 mg/dL) 2.3 Hematology CBC w Diff NO MAN DIFF REQ WBC (4.8 - 10.8 /CUMM) 11.6 H RBC (4.70 - 6.10 /CUMM) 3.47 L Hgb (14.0 - 18.0 G/DL) 10.9 L Hct (42 - 52 %) 32.8 L MCV (80.0 - 94.0 FL) 94.4 H MCH (27.0 - 31.0 PG) 31.5 H MCHC (33.0 - 37.0 G/DL) 33.3 RDW (11.5 - 14.5 %) 13.3 Plt Count (130 - 400 /CUMM) 350 MPV (7.4 - 10.4 FL) 9.3 Gran % (42.2 - 75.2 %) 90.5 H Lymphocytes % (20.5 - 51.1 %) 5.8 L Monocytes % (1.7 - 9.3 %) 2.2 Eosinophils % (0 - 5 %) 1.1 Basophils % (0.0 - 2.0 %) 0.4 Absolute Granulocytes (1.4 - 6.5 /CUMM) 10.5 H Absolute Lymphocytes (1.2 - 3.4 /CUMM) 0.7 L Absolute Monocytes (0.10 - 0.60 /CUMM) 0.3 Absolute Eosinophils (0.0 - 0.7 /CUMM) 0.1 Absolute Basophils (0.0 - 0.2 /CUMM) 0
[2017-03-22 15:22] VITALS: BP 120/60
--- NOTE | 2017-03-22 16:01 | PN- Cardiology ---
Subjective Subjective: No chest pain. No shortness of breath. No nausea or vomiting. Blood pressure now normal. Objective Vital Signs and I&Os Vital Signs Date Time Temp Pulse Resp B/P B/P Pulse O2 O2 Flow FiO2 Mean Ox Delivery Rate 03/22 1522 97.9 63 22 120/60 97 03/22 1037 140/80 03/22 1035 140/80 03/22 1035 140/80 03/22 0800 97 Nasal 2.0L Cannula 03/21 2307 98.8 80 24 156/64 97 Nasal Cannula 03/21 2200 Nasal 4.0L Cannula 03/21 1747 99.0 91 20 140/60 99 Nasal Cannula Intake & Output 03/22 1600 03/22 0800 03/22 0000 03/21 1600 03/21 0800 03/21 0000 Intake Total 1320 136 559 7528 480 Output Total 450 650 410 200 Balance 870 550 -450 850 280 Intake, IV 150 250 540 120 Intake, Oral 1170 300 200 720 360 Number 2 0 Bowel Movements Output, Urine 450 650 410 200 Physical Exam: Gen: The patient is in no acute distress HEENT: Normal nose, ears, and oropharynx. Pupils equal bilaterally. Conjunctiva normal. Neck: Supple with no JVD, no masses, and no thyromegaly Lungs: Clear to auscultation with normal respiratory effort Heart: RRR, S1, S2, no murmurs. No peripheral edema, pulse nonpalpable in the right lower extremity, and decreased in the left lower extremity Abdomen: Soft, nontender, no masses. No hepatomegaly. No splenomegaly Extremities: No clubbing or cyanosis. Normal muscle strength in the upper and lower extremities Skin: Right foot erythema. Normal skin turgor. Neuro: Cranial nerves intact. Sensation intact Current Medications: Current Medications Sig/Coral Start time Last Medication Dose Route Stop Time Status Admin Acetaminophen 1,000 MG Q8P PRN 03/20 2345 03/20 N/A 1 UNIT IV 2341 Acetaminophen 650 MG Q8P PRN 03/18 2145 AC PO Amlodipine Besylate 10 MG DAILY 03/22 1000 AC 03/22 PO 1035 Ampicillin Sodium/ 1,500 MG Q6 03/19 2359 AC 03/22 Sulbactam Sodium IV 1210 Sodium Chloride 50 ML Aspirin 81 MG DAILY 03/18 1733 AC 03/22 PO 1036 Atorvastatin Calcium 40 MG 1700 03/20 1700 AC 03/21 PO 1657 Benzonatate 100 MG TID 03/20 2200 AC 03/22 PO 1035 Insulin Aspart 0 TIDAC/HS 03/22 1210 AC SC Insulin Aspart 0 TIDAC 03/20 1200 DC 03/22 SC 0820 Insulin Detemir 10 UNITS BID 03/22 2200 AC SC Insulin Detemir 5 UNITS ONCE ONE 03/22 1215 DC SC 03/22 1216 Insulin Detemir 6 UNITS BID 03/21 2200 DC 03/22 SC 1036 Lactobacillus 1 CAP DAILY 03/22 1000 AC 03/22 Acidophilus PO 1204 Losartan Potassium 100 MG DAILY 03/19 1000 AC 03/22 PO 1035 Metoprolol Succinate 25 MG DAILY 03/19 1000 AC 03/22 PO 1037 Morphine Sulfate 2 MG Q4P PRN 03/20 2130 AC 03/21 IV 0133 Pregabalin 50 MG TID 03/18 1737 AC 03/22 PO 1036 Sodium Chloride 2 SPRAY Q4P PRN 03/22 0800 AC THOMAS Tramadol HCl 50 MG Q6P PRN 03/18 2145 AC 03/21 PO 1853 Results Last 48 Hrs of Labs/Mics: Laboratory Tests 03/22/17 0844: Anion Gap 13, Estimated GFR > 60, BUN/Creatinine Ratio 37.0 H, Phosphorus 3.5, Magnesium 2.3, CBC w Diff NO MAN DIFF REQ, RBC 3.47 L, MCV 94.4 H, MCH 31.5 H , MCHC 33.3, RDW 13.3, MPV 9.3, Gran % 90.5 H, Lymphocytes % 5.8 L, Monocytes % 2.2, Eosinophils % 1.1, Basophils % 0.4, Absolute Granulocytes 10.5 H, Absolute Lymphocytes 0.7 L, Absolute Monocytes 0.3, Absolute Eosinophils 0.1, Absolute Basophils 0 03/21/17 0409: Anion Gap 14, Estimated GFR > 60, Glucose 176 H, Calcium 8.3 L, Phosphorus 4.4 , Magnesium 2.0, Total Bilirubin 0.6, AST 25, ALT 31, Albumin 3.0 L, CBC w Diff NO MAN DIFF REQ, RBC 3.53 L, MCV 95.3 H, MCH 31.6 H, MCHC 33.1, RDW 13.5, MPV 9.4, Gran % 82.8 H, Lymphocytes % 8.5 L, Monocytes % 8.0, Eosinophils % 0.4, Basophils % 0.3, Absolute Granulocytes 9.0 H, Absolute Lymphocytes 0.9 L, Absolute Monocytes 0.9 H, Absolute Eosinophils 0, Absolute Basophils 0 03/20/17 1730: APTT Cancelled Assessment/Plan Assessment/Plan Assessment: 1. Hypertensive urgency, improved 2. Peripheral arterial disease 3. History of current pacemaker 4. Diabetes 5. Right lower extremity cellulitis with gangrene 6. Leukocytosis Plan: * Continue current hypertension medications. * continue to monitor blood pressure * IV antibiotic therapy Continue telemetry? Not applicable
[2017-03-22 22:47] VITALS: BP 170/72
[2017-03-23 06:00] LABS: ABSOLUTE BASOPHIL COUNT 0 /CUMM (0.0-0.2); ABSOLUTE EOSINOPHIL COUNT 0.2 /CUMM (0.0-0.7); ABSOLUTE GRANULOCYTE CT 10.1 /CUMM (1.4-6.5); ABSOLUTE LYMPH COUNT 1.1 /CUMM (1.2-3.4); ABSOLUTE MONOCYTE COUNT 0.6 /CUMM (0.10-0.60); BASOPHIL % 0.1 % (0.0-2.0); GRANULOCYTE % 83.7 % (42.2-75.2); HEMATOCRIT 35.7 % (42-52); MEAN CORPUSCULAR HGB 31.1 PG (27.0-31.0); MEAN CORPUSCULAR HGB CONC 33.1 G/DL (33.0-37.0); MEAN CORPUSCULAR VOLUME 93.9 FL (80.0-94.0); MEAN PLATELET VOLUME 9.4 FL (7.4-10.4); PLATELET COUNT 435 /CUMM (130-400); RBC DISTRIBUTION WIDTH 13.2 % (11.5-14.5); WHITE BLOOD CELL COUNT 12.1 /CUMM (4.8-10.8)
[2017-03-23 06:20] VITALS: BP 154/80
--- NOTE | 2017-03-23 07:32 | PN- Housestaff ---
Gisella LOZANO,Anne 03/23/17 0732: Subjective Follow-up For: RIGHT FOOT CELLULITIS AND GANGRENE PVD UNCONTROLLED DIABETES MELLITUS Subjective: PATIENT WAS SEEN AFTER SURGERY. HE IS STABLE AND IN NO PAIN AT TIME OF INTERVIEW. HE IS EATING. NO COMPLAINTS. Review of Systems Constitutional: Reports: no symptoms. Cardiovascular: Reports: no symptoms. Respiratory: Reports: no symptoms. Gastrointestinal: Reports: no symptoms. Genitourinary: Reports: no symptoms (LOPEZ). Musculoskeletal: Reports: no symptoms. Objective Last 24 Hrs of Vital Signs/I&O Vital Signs Date Time Temp Pulse Resp B/P B/P Pulse O2 O2 Flow FiO2 Mean Ox Delivery Rate 03/23 1639 80 162/82 03/23 1600 100 Nasal 3.0L Cannula 03/23 0620 98.7 75 20 154/80 100 Nasal Cannula 03/23 0600 96 Nasal 2.0L Cannula 03/22 2247 97.8 83 24 170/72 97 Nasal 2.0L Cannula Intake & Output 03/23 1600 03/23 0800 03/23 0000 Intake Total 580 Output Total 400 425 500 Balance -400 -425 80 Intake, IV 100 Intake, Oral 480 Number 1 Bowel Movements Output, Urine 400 425 500 Patient 178 lb Weight Weight Bed scale Measurement Method Physical Exam General Appearance: Alert, Oriented X3, Cooperative, No Acute Distress Skin: No Rashes, No Breakdown, No Significant Lesion, SURGICAL SITE COVERED Skin Temp/Moisture Exam: Warm/Dry Sepsis Skin Exam (color): Normal for Ethnicity Cardiovascular: Regular Rate, Normal S1, Normal S2, No Murmurs Lungs: Clear to Auscultation, Normal Air Movement Abdomen: Normal Bowel Sounds, Soft, No Tenderness Neurological: Normal Speech Extremities: No Clubbing, No Cyanosis, No Edema, Normal Pulses Current Medications: Current Medications Sig/Coral Start time Last Medication Dose Route Stop Time Status Admin Acetaminophen 1,000 MG .STK-MED ONE 03/23 0657 DC IV 03/23 0658 Acetaminophen 1,000 MG Q8P PRN 03/20 2345 AC 03/20 N/A 1 UNIT IV 2341 Acetaminophen 650 MG Q8P PRN 03/18 2145 AC PO Amlodipine Besylate 10 MG DAILY 03/22 1000 AC 03/22 PO 1035 Ampicillin Sodium/ 1,500 MG Q6 03/19 2359 DC 03/23 Sulbactam Sodium IV 0543 Sodium Chloride 50 ML Aspirin 81 MG DAILY 03/23 1503 AC 03/23 PO 1640 Aspirin 81 MG DAILY 03/18 1733 AC 03/22 PO 1036 Atorvastatin Calcium 40 MG 1700 03/20 1700 AC 03/23 PO 1640 Benzonatate 100 MG TID 03/20 2200 AC 03/23 PO 1640 Fentanyl Citrate 250 MCG .STK-MED ONE 03/23 0657 DC IM 03/23 0658 Insulin Aspart 0 TIDAC/HS 03/22 1210 AC 03/23 SC 1730 Insulin Detemir 10 UNITS BID 03/22 2200 AC 03/22 SC 2206 Lactobacillus 1 CAP DAILY 03/22 1000 AC 03/23 Acidophilus PO 1639 Losartan Potassium 100 MG DAILY 03/19 1000 AC 03/22 PO 1035 Metoprolol Succinate 25 MG DAILY 03/19 1000 AC 03/23 PO 1639 Midazolam HCl 2 MG .STK-MED ONE 03/23 0657 DC IM 03/23 0658 Morphine Sulfate 2 MG Q4P PRN 03/20 2130 AC 03/21 IV 0133 Pregabalin 50 MG TID 03/18 1737 AC 03/23 PO 1640 Remifentanil HCl 2 MG .STK-MED ONE 03/23 0719 DC IV 03/23 0720 Sodium Chloride 2 SPRAY Q4P PRN 03/22 0800 AC THOMAS Tramadol HCl 50 MG Q6P PRN 03/18 2145 AC 03/21 PO 1853 Vancomycin HCl 1,500 MG Q12H 03/23 1745 AC Dextrose/Water 250 ML IV Vancomycin HCl 1,500 MG Q12 03/23 1536 DC 03/23 Dextrose/Water 250 ML IV 1638 Last 24 Hrs of Lab/Fransisco Results Last 24 Hrs of Labs/Mics: Laboratory Tests 03/23/17 0520: Anion Gap 14, Estimated GFR > 60, BUN/Creatinine Ratio 38.0 H, CBC w Diff NO MAN DIFF REQ, RBC 3.80 L, MCV 93.9, MCH 31.1 H, MCHC 33.1, RDW 13.2, MPV 9.4, Gran % 83.7 H, Lymphocytes % 9.0 L, Monocytes % 5.2, Eosinophils % 2.0, Basophils % 0.1, Absolute Granulocytes 10.1 H, Absolute Lymphocytes 1.1 L, Absolute Monocytes 0.6, Absolute Eosinophils 0.2, Absolute Basophils 0 Assessment/Plan Assessment: Patient is a 71-year-old male with a past medical history significant for hypertension, hyperlipidemia, pacemaker placed 4-5 years ago, SILENT AL PER SON, diabetes type 1 since he was 14 years old currently on an insulin pump, MILD COGNITIVE IMPAIRMENT WORKED UP BY DR. MORATAYA PRESUMED TO BE ONSET DEMENTIA, that comes to us for right foot erythema, edema of 10 days duration with the development of eschar/dark blood underneath the skin for the past 1 day. The patient recently has had poor glucose control and has seen his primary care physician Estuardo Adame MD for better control. The patient also sees a net coordinator for his diabetic feet which have caused him balance issues in the recent years. The patient came here 5 days ago and was given Keflex and told to follow-up outpatient. However his skin issues have worsened since then. The patient also complains of one-month history of productive cough. In the ED the patient's vitals were temperature 97.5, heart rate 73, respiratory rate 16, blood pressure 125/53, 96% oxygen saturation on room air. Pertinent labs were sodium 144, potassium 4, creatinine 1.1, glucose 201, lactic acid 2.0, CRP greater than 9, WBC 14.7, hemoglobin 12.5. X-ray was done and showed no bony erosive or distractive changes. Tiny flecks of calcification in the soft tissue. No evidence of acute fracture. Venous Doppler showed no evidence of DVT. EKG was unchanged from March 2016 with a rate of 62 normal sinus rhythm deep S waves in V3. Patient was admitted to general medicine floors for evaluation and treatment of the following: #1 cellulitis of right foot #2 uncontrolled diabetes mellitus -HE WAS FOUND ON DUPLEX SCAN LOWER EXT TO HAVE NO FLOW IN HIS POSTERIOR TIBIAL ARTERIES AND HEAVILY CALCIFIED PLAQUE IN AORTA AND ILIAC VESSELS BUT NO FOCAL STENOSIS. -EXTREMITY VENOUS SCAN SHOWED NO DVT -DUPLEX SHOWING NO FLOW IN POSTERIOR TIBIAL ARTERIES. Plan #1 PVD WITH RIGHT TOE GANGRENE AND CELLULITIS PATIENT HAD RIGHT GREAT TOE AMPUTATION LAST THURSDAY NOW: POD0 sp R SFA angiogram/plasty CULTURES OF WOUND FROM DEBRIDEMENT AND AMPUTATION ARE POSITIVE FOR MRSA PATIENT IS NOW ON VANCO WHICH TODAY IS DECREASED TO 1.5G IV DAILY PICC PLACEMENT TO COME FOR CUSTODIAL ABX COVERAGE PATIENT WILL LIKELY RETURN TO OR FOR WOUND CLOSURE/VAC PATIENT IS CONTINUED ON ASA 81 AFTER SURGERY #2 uncontrolled diabetes mellitus Estuardo Adame MD, his PCP and occupational health manager has been consulted FOLLOW RECOMMENDATIONS DAILY. LEVEMIR WAS MISSED IN MORNING DURING SURGERY. DOSE OF LEVEMIR DECREASED TO 8UNITS BID IMPORTANT DIRECTIONS IF PATIENT GOES BACK TO OR PER DR. ADAME: If the patient is made n.p.o. for a procedure on his foot he should receive full dose of Levemir tonight as he missed his morning dose. If n.p.o. we would begin D5 half -normal at 75 cc/h at midnight tonight. He would be placed on sliding scale NovoLog every 4 hours while n.p.o. Sliding scale NovoLog every 4 hours while n.p.o. would be less than 150 give no insulin, 151-200 give 2 units NovoLog, 201 -250 give 3 units NovoLog, 251-300 give 4 units NovoLog, 301-350 give 5 units NovoLog, 351-400 give 6 units NovoLog. #3 hematuria LIKELY FROM TRAUMATIC LOPEZ. patient not on AC OTHER THAN ASA. will monitor. urine culture negative. PER VASC SURGERY KEEP LOPEZ IN. DNR DNI CC DIET Problem List: 1. Peripheral vascular disease 2. Cellulitis of right foot Pain Ratin Pain Location: NA Pain Goal: Remain pain free Pain Plan: PRN Tomorrow's Labs & Rationales: CBC BEP Jeff Haas 03/23/17 1529: Attending MD Review Statement Attending Statement Attending MD Statement: examined this patient, discuss w/resident/PA/TRAFFIC INVESTIGATOR, agreed w/resident/PA/TRAFFIC INVESTIGATOR, discussed with family, reviewed EMR data (avail), discussed with nursing, discussed with case mgmt, reviewed images, amended to note Attending Assessment/Plan: Patient seen/examined bedside. Patient seen post operatively. He is mild disoriented possible anesthesia effects. Severe PVD with gangrene and osteomyelitis s/p amputation of the toe and partial 1st ray resection rt foot. Osteomyelitis: Foot (piece of bone)culture growing MRSA dc unasyn, ID consult for Abx, PICC line as per ID. Patient underwent stent SFA placement. Iv heparin discontinued. Give ASA as per Vascular surgery. Continue post operative care, encourage incentive spirometry. Follow vascular surgery and infectious disease recommendations. gi/dvt prophyalxis d/w pt/son and family the care plan.
--- NOTE | 2017-03-23 15:47 | RADIOLOGY REPORT ---
EXAMINATION: CR ABDOMEN/INTRAOPERATIVE FLUOROSCOPY CLINICAL INDICATION: Right leg arteriogram, angioplasty and atherectomy in OR. COMPARISON: None TECHNIQUE/FINDINGS: Fluoroscopic equipment was dedicated to the operating room for the performance of an intraoperative procedure. Several (30) cine fluoroscopy runs were acquired and are archived in PACS. Please refer to operative notes for procedural detail. FLUOROSCOPY TIME: 40 minutes and 59 seconds. IMPRESSION: Administrative dictation for intraoperative fluoroscopy and image archiving in PACS. Please refer to operative notes for details.
--- NOTE | 2017-03-23 16:03 | PN- Vascular Surgery ---
Subjective Subjective: POST PROCEDURE CHECK no pain, flat in bed, jewell in place, no n/v/cp/sob. awaiting meal Objective Vital Signs and I&Os Vital Signs Date Time Temp Pulse Resp B/P B/P Pulse O2 O2 Flow FiO2 Mean Ox Delivery Rate 03/23 0620 98.7 75 20 154/80 100 Nasal Cannula 03/23 0600 96 Nasal 2.0L Cannula 03/22 2247 97.8 83 24 170/72 97 Nasal 2.0L Cannula 03/22 1600 Nasal 2.0L Cannula Intake & Output 03/23 1600 03/23 0800 03/23 0000 03/22 1600 03/22 0800 03/22 0000 Intake Total 580 1320 550 200 Output Total 400 425 500 450 650 Balance -400 -425 80 870 550 -450 Intake, IV 100 150 250 Intake, Oral 480 1170 300 200 Number 1 2 Bowel Movements Output, Urine 400 425 500 450 650 Patient 178 lb Weight Weight Bed scale Measurement Method Physical Exam: gen- nad card- s1s2 pulm- no audible wheeze ext: left groin w cdi dressing, no ecchymosis, no erythema, soft, nt. left foot : +dp/pt signals, gross sensation intact, limited motor intact. right foot: dressed, +pt signal. gross toe movement/snesation. calves soft nt bl Assessment/Plan Assessment/Plan A- 71M POD0 sp R SFA angiogram/plasty with L groin access, with significant PAD, stable. P- bedrest x4hr postop ASA 81mg daily mild hematuria during carse- keep jewell in place, monitor prn pain meds diet as tolerated r foot per podiatry med mgmt per primary team to [facility] Core Measures Venous Thromboembolism VTE Risk Factors Acute Medical Illness No Mechanical VTE Prophylaxis d/t N/A MechProphylax Ordered No VTE Pharm Prophylaxis d/t NA PharmProphylax ordered
--- NOTE | 2017-03-23 17:31 | Cons- Infect Disease ---
General Information and HPI Consulting Request Date of Consult: 03/23/17 Requested By: Jeff Haas MD Reason for Consult: Gangrene/osteomyelitis of the right great toe Source of Information: patient, old records, friend History of Present Illness: This is a 71-year-old man with a history of hypertension, hyperlipidemia, status post pacemaker, diabetes, with a neuropathy, retinopathy and nephropathy, seen in the emergency room 3 days prior to admission with pain, erythema and swelling of the medial aspect of the right foot of unclear duration, found to be afebrile and discharged on , admitted on March 18 after returning to the emergency room with black discoloration and bloody drainage from the right great toe. On admission he was afebrile. Laboratory data revealed a white blood cell count of 15,000, BUN/creatinine 34 and 1.1, with normal liver enzymes. X-ray of the right foot revealed absence of the medial base of the distal pharynx of the great toe with no evidence of osteomyelitis. Arterial Dopplers of both lower extremities revealed peripheral vascular disease with occlusion of the posterior tibial arteries. Doppler of the right lower extremity was negative for DVT. He was begun on Unasyn. On March 19 he was noted to be hypertensive and was transferred to telemetry/ICU. On March 20 he was taken to the OR for amputation of the right great toe. Postop he had a low-grade fever to 100.3 but he has been afebrile since on Unasyn. His white blood cell count has been fluctuating in the 12,[address] angiogram on March 19 revealed significant peripheral vascular disease and he was taken to the OR today for a right SFA angiogram and angioplasty with left groin access. At present he does not report any pain. Allergies/Medications Allergies: Coded Allergies: NO KNOWN ALLERGIES (12/07/15) Home Med List: Amlodipine (Norvasc) 2.5 MG TABLET 1 TAB PO DAILY HYPERTENSION (Reported) Aspirin (Children's Aspirin) 81 MG TAB.CHEW 1 TAB PO DAILY HEART HEALTH ( Reported) Atorvastatin Calcium 10 MG TABLET 1 TAB PO THURSDAY TO THURSDAY CHOLESTEROL ( Reported) Atorvastatin Calcium 10 MG TABLET 1 TAB PO AD CHOLESTEROL (Reported) Fluticasone Furoate (Flonase Sensimist) 27.5 MCG/ACTUATION SPRAY.SUSP 2 PUF NS DAILY ALLERGY (Reported) Insulin Aspart (Novolog) 100 UNIT/ML CARTRIDGE DIABETES (Reported) Losartan (Cozaar) 100 MG TABLET 1 TAB PO DAILY HYPERTENSION (Reported) Metoprolol Succ XL (Toprol XL) 25 MG TAB 1 TAB PO DAILY HYPERTENSION ( Reported) Pregabalin (Lyrica) 50 MG CAPSULE 1 CAP PO TID NEUROPATHY (Reported) Past History Travel History Traveled to [place] past 21 day No Medical History Blood Transfusion Hx: Yes Neurological: NONE, peripheral neuropathy EENT: cataracts, diabetic retinopathy Cardiovascular: hypertension, hyperlipidemia, Pacemaker (R) Respiratory: bronchitis Gastrointestinal: NONE Hepatic: NONE Renal: NONE Musculoskeletal: fracture Psychiatric: NONE Endocrine: diabetes type 1 Blood Disorders: NONE Cancer(s): NONE SURGICAL DENTAL ASSISTANT/Reproductive: NONE History of MRSA: Yes History of VRE: No History of CDIFF: No Isolation History: Standard Surgical History Surgical History: pacemaker Family History Relations & Conditions If Any: MOTHER FH: myocardial infarction Psychosocial History Where Do You Live? Home Services at Home: None Primary Language: Nigerien Smoking Status: Former Smoker Functional Ability ADLs Independent: dressing, eating, toileting, bathing. Ambulation: independent IADLs Independent: shopping, housework, finances, food prep, telephone, transportation , medication admin. Review of Systems Review of Systems All Other Systems: Reviewed and Negative Exam & Diagnostic Data Last 24 Hrs of Vital Signs/I&O Vital Signs Date Time Temp Pulse Resp B/P B/P Pulse O2 O2 Flow FiO2 Mean Ox Delivery Rate 03/23 1639 80 162/82 03/23 0620 98.7 75 20 154/80 100 Nasal Cannula 03/23 0600 96 Nasal 2.0L Cannula 03/22 2247 97.8 83 24 170/72 97 Nasal 2.0L Cannula Intake & Output 03/23 1600 03/23 0800 03/23 0000 Intake Total 580 Output Total 400 425 500 Balance -400 -425 80 Intake, IV 100 Intake, Oral 480 Number 1 Bowel Movements Output, Urine 400 425 500 Patient 178 lb Weight Weight Bed scale Measurement Method Physical Exam Other Physical Findings: Afebrile. He is awake and alert in no acute distress. Skin reveals no rash. HEENT negative. Neck is supple with no adenopathy. Lungs bibasilar crackles. Heart regular rhythm with no murmur. Abdomen is soft, nontender with positive bowel sounds. Back no CVA tenderness. Extremities right foot dressing intact; left groin dressing intact; left foot 1+ pulses. Neuro neuropathy both feet. Land catheter is in place. Last 24 Hours of Lab Results: Laboratory Tests 03/23 0520 Chemistry Sodium (137 - 145 mmol/L) 146 H Potassium (3.5 - 5.1 mmol/L) 4.0 Chloride (98 - 107 mmol/L) 102 Carbon Dioxide (22 - 30 mmol/L) 30 Anion Gap (5 - 16) 14 BUN (9 - 20 mg/dL) 38 H Creatinine (0.7 - 1.2 mg/dL) 1.0 Estimated GFR (>60 ml/min) > 60 BUN/Creatinine Ratio (7 - 25 %) 38.0 H Hematology CBC w Diff NO MAN DIFF REQ WBC (4.8 - 10.8 /CUMM) 12.1 H RBC (4.70 - 6.10 /CUMM) 3.80 L Hgb (14.0 - 18.0 G/DL) 11.8 L Hct (42 - 52 %) 35.7 L MCV (80.0 - 94.0 FL) 93.9 MCH (27.0 - 31.0 PG) 31.1 H MCHC (33.0 - 37.0 G/DL) 33.1 RDW (11.5 - 14.5 %) 13.2 Plt Count (130 - 400 /CUMM) 435 H MPV (7.4 - 10.4 FL) 9.4 Gran % (42.2 - 75.2 %) 83.7 H Lymphocytes % (20.5 - 51.1 %) 9.0 L Monocytes % (1.7 - 9.3 %) 5.2 Eosinophils % (0 - 5 %) 2.0 Basophils % (0.0 - 2.0 %) 0.1 Absolute Granulocytes (1.4 - 6.5 /CUMM) 10.1 H Absolute Lymphocytes (1.2 - 3.4 /CUMM) 1.1 L Absolute Monocytes (0.10 - 0.60 /CUMM) 0.6 Absolute Eosinophils (0.0 - 0.7 /CUMM) 0.2 Absolute Basophils (0.0 - 0.2 /CUMM) 0 Last 24 Hours of [place] Results: Blood cultures March 18 negative Urine culture March 19 contaminated Rapid flu swab March 19 negative Urine culture March 20 negative OR culture March 20 labeled right foot bone positive for MRSA Urine culture March 21 negative Diagnostic Data Recent Imaging Findings: Chest x-ray March 20 reveals significant improvement in the interstitial edema , with the interval development of focal patchy airspace disease at the right lung base CTA runoff of the abdomen, pelvis and lower extremity reveals focal severe stenosis in the bilateral distal superficial femoral arteries, with focal areas of severe stenosis in the bilateral popliteal arteries and extensive peripheral arterial disease within the bilateral anterior tibial, peroneal and posterior tibial arteries Doppler of the right lower extremity March 18 negative Arterial Dopplers of both lower extremities reveal peripheral vascular disease Assessment/Plan Assessment/Plan Impression: This is a 71-year-old man with a history of hypertension, hyperlipidemia, status post pacemaker, diabetes, with a neuropathy, retinopathy and nephropathy admitted on March 18 with black discoloration and bloody drainage from the right great toe, found to be afebrile with a leukocytosis with his x-ray negative for osteomyelitis but with arterial Dopplers and CT angiogram of both lower extremities revealing significant peripheral vascular disease, status post amputation of the right great toe 3 days ago and right SFA angioplasty earlier today. His right great toe culture is positive for MRSA, confirming the suspicion of osteomyelitis, and he will presumably require a prolonged course of IV antibiotics for residual osteomyelitis of the right foot. He has significant peripheral arterial disease but, hopefully, his recent revascularization will help heal his right foot. Suggestion: 1. Await probable return to the OR in the a.m. for wound closure or wound VAC 2. Remove Land catheter when okay with Vascular surgery 3. Would pursue placement of a PICC 4. Decrease Vancomycin to 1.5 g IV every 24 hours Consult Acknowledgment - Thank you for your consult request.
--- NOTE | 2017-03-23 18:33 | PN- Diabetes ---
Assessment/Plan Assessment: This patient has type 1 diabetes mellitus and presents with a cellulitis of the right foot and necrosis of the right great toe. The patient was transferred to the intensive care unit because of hypertension. He also went into congestive heart failure. The patient was using on an insulin pump at home. Patient will had his Levemir increased to 10 units twice a day yesterday by Dr. covarrubias. At this morning however he missed his Levemir dose because he was in the OR for vascular procedure. The patient did eat dinner tonight. Plan: Suggest change Levemir to 8 units twice a day. Continue sliding scale NovoLog before meals with a separate sliding scale at bedtime as written. If the patient is made n.p.o. for a procedure on his foot he should receive full dose of Levemir tonight as he missed his morning dose. If n.p.o. we would begin D5 half-normal at 75 cc/h at midnight tonight. He would be placed on sliding scale NovoLog every 4 hours while n.p.o. Sliding scale NovoLog every 4 hours while n.p.o. would be less than 150 give no insulin, 151-200 give 2 units NovoLog, 201-250 give 3 units NovoLog, 251-300 give 4 units NovoLog, 301-350 give 5 units NovoLog, 351-400 give 6 units NovoLog. Objective Last 24 Hrs of Vital Signs/I&O Vital Signs Date Time Temp Pulse Resp B/P B/P Pulse O2 O2 Flow FiO2 Mean Ox Delivery Rate 03/23 1639 80 162/03/23 1600 100 Nasal 3.0L Cannula 03/23 06 98.7 75 20 154/80 100 Nasal Cannula 03/23 0600 96 Nasal 2.0L Cannula 03/22 2246 97.8 83 24 170/72 97 Nasal 2.0L Cannula Intake & Output 03/23 1600 03/23 0800 03/23 0000 Intake Total 580 Output Total 400 425 500 Balance -400 -425 80 Intake, IV 100 Intake, Oral 480 Number 1 Bowel Movements Output, Urine 400 425 500 Patient 178 lb Weight Weight Bed scale Measurement Method Vital Signs Date Time Temp Pulse Resp B/P B/P Pulse O2 O2 Flow FiO2 Mean Ox Delivery Rate 03/23 1639 80 162/82 03/23 1600 100 Nasal 3.0L Cannula 03/23 06 98.7 75 20 154/80 100 Nasal Cannula 03/23 0600 96 Nasal 2.0L Cannula 03/22 2247 97.8 83 24 170/72 97 Nasal 2.0L Cannula Intake & Output 03/23 1600 03/23 0800 03/23 0000 Intake Total 580 Output Total 400 425 500 Balance -400 -425 80 Intake, IV 100 Intake, Oral 480 Number 1 Bowel Movements Output, Urine 400 425 500 Patient 178 lb Weight Weight Bed scale Measurement Method Physical Exam General Appearance: alert, awake, thin Head: normal appearance Neck: normal inspection Respiratory: normal breath sounds Cardiovascular: regular rate/rhythm Abdomen: normal bowel sounds Current Medications: Current Medications Sig/Coral Start time Last Medication Dose Route Stop Time Status Admin Acetaminophen 1,000 MG .STK-MED ONE 03/23 656 DC IV 03/23 0658 Acetaminophen 1,000 MG Q8P PRN 03/20 2345 AC 03/20 N/A 1 UNIT IV 2341 Acetaminophen 650 MG Q8P PRN 03/18 2145 AC PO Amlodipine Besylate 10 MG DAILY 03/22 1000 AC 03/22 PO 1035 Ampicillin Sodium/ 1,500 MG Q6 03/19 2359 MA 03/23 Sulbactam Sodium IV 0543 Sodium Chloride 50 ML Aspirin 81 MG DAILY 03/23 1503 AC 03/23 PO 1640 Aspirin 81 MG DAILY 03/18 1733 AC 03/22 PO 1036 Atorvastatin Calcium 40 MG 1700 03/20 1700 AC 03/23 PO 1640 Benzonatate 100 MG TID 03/20 2200 AC 03/23 PO 1640 Fentanyl Citrate 250 MCG .STK-MED ONE 03/23 656 DC IM 03/23 0658 Insulin Aspart 0 TIDAC/HS 03/22 1210 AC 03/23 MN 1730 Insulin Detemir 10 UNITS BID 03/22 2200 AC 03/22 MN 2206 Lactobacillus 1 CAP DAILY 03/22 1000 AC 03/23 Acidophilus PO 1639 Losartan Potassium 100 MG DAILY 03/19 1000 AC 03/22 PO 1035 Metoprolol Succinate 25 MG DAILY 03/19 1000 AC 03/23 PO 1639 Midazolam HCl 2 MG .STK-MED ONE 03/23 656 MA IM 03/23 0658 Morphine Sulfate 2 MG Q4P PRN 03/20 2130 AC 03/21 IV 0133 Pregabalin 50 MG TID 03/18 1737 AC 03/23 PO 1640 Remifentanil HCl 2 MG .STK-MED ONE 03/23 0719 DC IV 03/23 0720 Sodium Chloride 2 SPRAY Q4P PRN 03/22 0800 AC THOMAS Tramadol HCl 50 MG Q6P PRN 03/18 2145 AC 03/21 PO 1853 Vancomycin HCl 1,500 MG Q12H 03/23 1745 AC Dextrose/Water 250 ML IV Vancomycin HCl 1,500 MG Q12 03/23 1536 DC 03/23 Dextrose/Water 250 ML IV 1638 Findings Pertinent Lab/[place] Results: Laboratory Tests 03/23 0520 Chemistry Sodium (137 - 145 mmol/L) 146 H Potassium (3.5 - 5.1 mmol/L) 4.0 Chloride (98 - 107 mmol/L) 102 Carbon Dioxide (22 - 30 mmol/L) 30 Anion Gap (5 - 16) 14 BUN (9 - 20 mg/dL) 38 H Creatinine (0.7 - 1.2 mg/dL) 1.0 Estimated GFR (>60 ml/min) > 60 BUN/Creatinine Ratio (7 - 25 %) 38.0 H Hematology CBC w Diff NO MAN DIFF REQ WBC (4.8 - 10.8 /CUMM) 12.1 H RBC (4.70 - 6.10 /CUMM) 3.80 L Hgb (14.0 - 18.0 G/DL) 11.8 L Hct (42 - 52 %) 35.7 L MCV (80.0 - 94.0 FL) 93.9 MCH (27.0 - 31.0 PG) 31.1 H MCHC (33.0 - 37.0 G/DL) 33.1 RDW (11.5 - 14.5 %) 13.2 Plt Count (130 - 400 /CUMM) 435 H MPV (7.4 - 10.4 FL) 9.4 Gran % (42.2 - 75.2 %) 83.7 H Lymphocytes % (20.5 - 51.1 %) 9.0 L Monocytes % (1.7 - 9.3 %) 5.2 Eosinophils % (0 - 5 %) 2.0 Basophils % (0.0 - 2.0 %) 0.1 Absolute Granulocytes (1.4 - 6.5 /CUMM) 10.1 H Absolute Lymphocytes (1.2 - 3.4 /CUMM) 1.1 L Absolute Monocytes (0.10 - 0.60 /CUMM) 0.6 Absolute Eosinophils (0.0 - 0.7 /CUMM) 0.2 Absolute Basophils (0.0 - 0.2 /CUMM) 0
[2017-03-24 06:57] VITALS: BP 150/76
--- NOTE | 2017-03-24 08:03 | PN- Diabetes ---
Assessment/Plan Assessment: This patient has type 1 diabetes mellitus and presents with a cellulitis of the right foot and necrosis of the right great toe. The patient was transferred to the intensive care unit because of hypertension. He also went into congestive heart failure. He is now out on a regular floor again. He is scheduled for this further surgery on his foot today. The patient was using on an insulin pump at home. The patient received 10 units of Levemir last night. He is presently n.p.o. and is on D5 half-normal saline at 75 cc/h. He is on NovoLog coverage every 4 hours. Most recent blood sugars are 287, 219, and 197. Plan: Suggest hold a.m. Levemir this morning. Continue sliding scale NovoLog every 4 hours. When the patient is eating again resume Levemir 8 units twice a day as well as his previous sliding scale NovoLog before meals with a separate sliding scale at bedtime. Objective Last 24 Hrs of Vital Signs/I&O Vital Signs Date Time Temp Pulse Resp B/P B/P Pulse O2 O2 Flow FiO2 Mean Ox Delivery Rate 03/24 656 97.9 70 20 150/76 100 Nasal 2.0L Cannula 03/24 0400 Nasal 3.0L Cannula 03/24 0000 Nasal 3.0L Cannula 03/23 1639 80 162/82 03/23 1600 100 Nasal 3.0L Cannula Intake & Output 03/24 0803/24 0000 Intake Total 450 440 Output Total 450 Balance 0 440 Intake, IV 450 300 Intake, Oral 140 Output, Urine 450 Vital Signs Date Time Temp Pulse Resp B/P B/P Pulse O2 O2 Flow FiO2 Mean Ox Delivery Rate 03/24 656 97.9 70 20 150/76 100 Nasal 2.0L Cannula 03/24 0400 Nasal 3.0L Cannula 03/24 0000 Nasal 3.0L Cannula 03/23 1639 80 162/82 03/23 1600 100 Nasal 3.0L Cannula Intake & Output 03/24 0000 Intake Total 450 440 Output Total 450 Balance 0 440 Intake, IV 450 300 Intake, Oral 140 Output, Urine 450 Current Medications: Current Medications Sig/Coral Start time Last Medication Dose Route Stop Time Status Admin Acetaminophen 1,000 MG Q8P PRN 03/20 2345 AC 03/20 N/A 1 UNIT IV 2341 Acetaminophen 650 MG Q8P PRN 03/18 2145 AC PO Amlodipine Besylate 10 MG DAILY 03/22 1000 AC 03/22 PO 1035 Ampicillin Sodium/ 1,500 MG Q6 03/19 2359 DC 03/23 Sulbactam Sodium IV 0543 Sodium Chloride 50 ML Aspirin 81 MG DAILY 03/23 1503 AC 03/23 PO 1640 Aspirin 81 MG DAILY 03/18 1733 AC 03/22 PO 1036 Atorvastatin Calcium 40 MG 1700 03/20 1700 AC 03/23 PO 1640 Benzonatate 100 MG TID 03/20 2200 AC 03/23 PO 2116 Dextrose/Sodium 1,000 ML Q13H 03/24 0000 AC Chloride IV Insulin Aspart 0 Q4 03/24 0200 AC 03/24 SC 0645 Insulin Aspart 0 TIDAC 03/24 0000 DC SC Insulin Aspart 6 UNITS .STK-MED ONE 03/23 1302 DC DE 03/23 1303 Insulin Aspart 0 TIDAC/HS 03/22 1210 DC 03/23 SC 03/24 0000 2006 Insulin Detemir 8 UNITS BID 03/23 2200 03/23 SC 2117 Insulin Detemir 10 UNITS BID 03/22 2200 SC 03/22 DE 2206 Lactobacillus 1 CAP DAILY 03/22 1000 AC 03/23 Acidophilus PO 1639 Losartan Potassium 100 MG DAILY 03/19 1000 AC 03/22 PO 1035 Metoprolol Succinate 25 MG DAILY 03/19 1000 AC 03/23 PO 1639 Morphine Sulfate 2 MG Q4P PRN 03/20 2130 AC 03/21 IV 0133 Pregabalin 50 MG TID 03/18 1737 AC 03/23 PO 2116 Sodium Chloride 2 SPRAY Q4P PRN 03/22 0800 AC THOMAS Tramadol HCl 50 MG Q6P PRN 03/18 2145 AC 03/21 PO 1853 Vancomycin HCl 1,500 MG Q24H 03/24 1730 AC Dextrose/Water 250 ML IV Vancomycin HCl 1,500 MG Q12H 03/23 1745 DC Dextrose/Water 250 ML IV Vancomycin HCl 1,500 MG Q12 03/23 1536 DC 03/23 Dextrose/Water 250 ML IV 1638
--- NOTE | 2017-03-24 09:06 | PN- Housestaff ---
Gisella LOZANO,Anne 03/24/17 0905: Subjective Follow-up For: RIGHT FOOT CELLULITIS AND GANGRENE PVD UNCONTROLLED DIABETES MELLITUS Subjective: Patient is feeling ok post surgery. He had wound vac placed by podiatry. patient yesterday had stent placed to SFA. he denies sob, ab or chest pain. he is hungry post surgery. Review of Systems Constitutional: Reports: no symptoms. Cardiovascular: Reports: no symptoms. Respiratory: Reports: no symptoms. Gastrointestinal: Reports: no symptoms. Musculoskeletal: Reports: no symptoms. Objective Last 24 Hrs of Vital Signs/I&O Vital Signs Date Time Temp Pulse Resp B/P B/P Pulse O2 O2 Flow FiO2 Mean Ox Delivery Rate 03/24 1639 Nasal 3.0L Cannula 03/24 1400 98.2 67 16 137/70 97 Nasal 3.0L Cannula 03/24 0942 72 148/88 03/24 0938 72 148/88 03/24 0938 72 148/88 03/24 0800 95 Nasal 3.0L Cannula 03/24 0657 97.9 70 20 150/76 100 Nasal 2.0L Cannula 03/24 0400 Nasal 3.0L Cannula 03/24 0000 Nasal 3.0L Cannula Intake & Output 03/24 1600 03/24 0800 03/24 0000 Intake Total 240 450 440 Output Total 450 Balance 240 0 440 Intake, IV 450 300 Intake, Oral 240 140 Output, Urine 450 Physical Exam General Appearance: Alert, Cooperative, No Acute Distress Skin: No Rashes, bandaged foot. left groin bandage for femoral access from yesterday. Skin Temp/Moisture Exam: Warm/Dry HEENT: Atraumatic, PERRLA, EOMI, Mucous Membr. moist/pink Neck: Supple, No JVD Cardiovascular: Regular Rate, Normal S1, Normal S2, No Murmurs Lungs: Clear to Auscultation, Normal Air Movement Abdomen: Normal Bowel Sounds, Soft, No Tenderness Extremities: No Clubbing, No Cyanosis, No Edema, Normal Pulses Current Medications: Current Medications Sig/Coral Start time Last Medication Dose Route Stop Time Status Admin Acetaminophen 1,000 MG Q8P PRN 03/20 2345 AC 03/20 N/A 1 UNIT IV 2341 Acetaminophen 650 MG Q8P PRN 03/18 2145 AC PO Amlodipine Besylate 10 MG DAILY 03/22 1000 AC 03/24 PO 0938 Aspirin 81 MG DAILY 03/23 1503 AC 03/23 PO 1640 Aspirin 81 MG DAILY 03/18 1733 AC 03/24 PO 1347 Atorvastatin Calcium 40 MG 1700 03/20 1700 AC 03/24 PO 1649 Benzonatate 100 MG TID 03/20 2200 AC 03/24 PO 1649 Dextrose/Sodium 1,000 ML Q13H 03/24 0000 AC 03/24 Chloride IV 1347 Insulin Aspart 0 Q4 03/24 0200 AC 03/24 SC 1513 Insulin Aspart 0 TIDAC 03/24 0000 DC SC Insulin Aspart 0 TIDAC/HS 03/22 1210 TX 03/23 MT 03/24 0000 2006 Insulin Detemir 8 UNITS BID 03/23 2200 DC 03/23 MT 211 Insulin Detemir 10 UNITS BID 03/22 2200 TX 03/22 MT 2206 Lactobacillus 1 CAP DAILY 03/22 1000 AC 03/23 Acidophilus PO 1639 Losartan Potassium 100 MG DAILY 03/19 1000 AC 03/24 PO 0938 Metoprolol Succinate 25 MG DAILY 03/19 1000 AC 03/24 PO 0942 Morphine Sulfate 2 MG Q4P PRN 03/20 2130 AC 03/21 IV 0133 Pregabalin 50 MG TID 03/18 1737 AC 03/24 PO 1649 Sodium Chloride 2 SPRAY Q4P PRN 03/22 0800 AC THOMAS Tramadol HCl 50 MG Q6P PRN 03/18 2145 AC 03/21 PO 1853 Vancomycin HCl 1,500 MG Q24H 03/24 1730 AC Dextrose/Water 250 ML IV Vancomycin HCl 1,500 MG Q12H 03/23 1745 DC Dextrose/Water 250 ML IV Vancomycin HCl 1,500 MG Q12 03/23 1536 DC 03/23 Dextrose/Water 250 ML IV 1638 Last 24 Hrs of Lab/Fransisco Results Last 24 Hrs of Labs/Mics: Laboratory Tests 03/24/17 0900: Anion Gap 10, Estimated GFR > 60, BUN/Creatinine Ratio 35.0 H, CBC w Diff NO MAN DIFF REQ, RBC 3.69 L, MCV 94.0, MCH 31.0, MCHC 32.9 L, RDW 13.2, MPV 9.4, Gran % 83.1 H, Lymphocytes % 10.4 L, Monocytes % 2.7, Eosinophils % 3.4, Basophils % 0.4, Absolute Granulocytes 8.8 H, Absolute Lymphocytes 1.1 L, Absolute Monocytes 0.3, Absolute Eosinophils 0.4, Absolute Basophils 0 Assessment/Plan Assessment: Patient is a 71-year-old male with a past medical history significant for hypertension, hyperlipidemia, pacemaker placed 4-5 years ago, SILENT NH PER SON, diabetes type 1 since he was 14 years old currently on an insulin pump, MILD COGNITIVE IMPAIRMENT WORKED UP BY DR. MORATAYA PRESUMED TO BE ONSET DEMENTIA, that comes to us for right foot erythema, edema of 10 days duration with the development of eschar/dark blood underneath the skin for the past 1 day. The patient recently has had poor glucose control and has seen his primary care physician Estuadro Adame MD for better control. The patient also sees a valet parker for his diabetic feet which have caused him balance issues in the recent years. The patient came here 5 days ago and was given Keflex and told to follow-up outpatient. However his skin issues have worsened since then. The patient also complains of one-month history of productive cough. In the ED the patient's vitals were temperature 97.5, heart rate 73, respiratory rate 16, blood pressure 125/53, 96% oxygen saturation on room air. Pertinent labs were sodium 144, potassium 4, creatinine 1.1, glucose 201, lactic acid 2.0, CRP greater than 9, WBC 14.7, hemoglobin 12.5. X-ray was done and showed no bony erosive or distractive changes. Tiny flecks of calcification in the soft tissue. No evidence of acute fracture. Venous Doppler showed no evidence of DVT. EKG was unchanged from March 2016 with a rate of 62 normal sinus rhythm deep S waves in V3. Patient was admitted to general medicine floors for evaluation and treatment of the following: #1 cellulitis of right foot #2 uncontrolled diabetes mellitus -HE WAS FOUND ON DUPLEX SCAN LOWER EXT TO HAVE NO FLOW IN HIS POSTERIOR TIBIAL ARTERIES AND HEAVILY CALCIFIED PLAQUE IN AORTA AND ILIAC VESSELS BUT NO FOCAL STENOSIS. 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 PATIENT IS TO HAVE LEVEMIR 8MG BID AND SS NOVOLOG QHS AND PM IMPORTANT DIRECTIONS IF PATIENT GOES BACK TO OR PER DR. ADAME: If the patient is made n.p.o. for a procedure on his foot he should receive full dose of Levemir tonight as he missed his morning dose. If n.p.o. we would begin D5 half -normal at 75 cc/h at midnight tonight. He would be placed on sliding scale NovoLog every 4 hours while n.p.o. Sliding scale NovoLog every 4 hours while n.p.o. would be less than 150 give no insulin, 151-200 give 2 units NovoLog, 201 -250 give 3 units NovoLog, 251-300 give 4 units NovoLog, 301-350 give 5 units NovoLog, 351-400 give 6 units NovoLog. #3 hematuria LIKELY FROM TRAUMATIC LOPEZ. patient not on AC OTHER THAN ASA. will monitor. urine culture negative. PER VASC SURGERY CAN REMOVE LOPEZ DNR DNI CC DIET Problem List: 1. Peripheral vascular disease 2. Cellulitis 3. Osteomyelitis Pain Ratin Pain Location: na Pain Goal: Remain pain free Pain Plan: prn Tomorrow's Labs & Rationales: cbc bep Jeff Haas 03/24/17 1213: Attending MD Review Statement Attending Statement Attending MD Statement: examined this patient, discuss w/resident/PA/SPECIALTY MANUFACTURING SUPERVISOR, agreed w/resident/PA/SPECIALTY MANUFACTURING SUPERVISOR, discussed with family, reviewed EMR data (avail), discussed with nursing, discussed with case mgmt, reviewed images, amended to note Attending Assessment/Plan: Patient seen/examined bedside. Patient is admitted for Severe PVD with gangrene and osteomyelitis s/p amputation of the toe and partial 1st ray resection rt foot. Osteomyelitis: Foot (piece of bone)culture growing MRSA iv vancomycin, ID consulted for Abx, PICC line as per ID. Patient underwent stent SFA placement. Continue ASA as per Vascular surgery. Continue post operative care, encourage incentive spirometry. Follow vascular surgery, podiatry and infectious disease recommendations. gi/dvt prophyalxis d/w pt/son and family the care plan.
--- NOTE | 2017-03-24 09:51 | Patient Discharge Instructions ---
Discharge Instructions General Discharge Information You were seen/treated for: CELLULITIS (SKIN INFECTION) OSTEOMYELITIS (BONE INFECTION) PERIPHERAL VASCULAR DISEASE DIABETES UNCONTROLLED Call Surgeon to remove: Other Special Instructions: 1. PLEASE FOLLOW UP WITH YOUR PCP DR. WILHELM IN ONE WEEK 2. PLEASE FOLLOW WITH VASCULAR IN ONE WEEK 3. PLEASE FOLLOW WITH PODIATRY AT [facility] ON THURSDAY 04/06 4. PLEASE HAVE CBC, ESR, BUN/CR AND VANCOMYCIN TROUGH LEVEL BEFORE DOSING DONE ONCE A WEEK (PLEASE DO FIRST ONE TONIGHT BEFORE 10PM VANCO DOSING) 5. PLEASE CONTINUE VANCOMYCIN BID DOSING UNTIL 04/21/17 6. PLEASE FOLLOW UP WITH DR. LAWLER BEEHIVE KILN SUPERVISOR FOR EVALUATION OF GI BLEED Diet Continue normal diet: No Recommended Diet: carbohydrate 1 diet Acute Coronary Syndrome Inclusion Criteria At DC or during hospital stay patient has or had the following: ACS DIAGNOSIS No Discharge Core Measures Meds if any: Prescribed or Continued at Discharge Meds if any: NOT Prescribed or Continued at Discharge Congestive Heart Failure Inclusion Criteria At DC or during hospital stay patient has or had the following: CHF DIAGNOSIS No Discharge Core Measures Meds if any: Prescribed or Continued at Discharge Meds if any: NOT Prescribed or Continued at Discharge Cerebrovascular accident Inclusion Criteria At DC or during hospital stay patient has or had the following: CVA/TIA Diagnosis No Discharge Core Measures Meds if any: Prescribed or Continued at Discharge Meds if any: NOT Prescribed or Continued at Discharge Venous thromboembolism Inclusion Criteria VTE Diagnosis No VTE Type NONE VTE Confirmed by (Test) NONE Discharge Core Measures - Per Current guidelines, there needs to be overlap - treatment for the first 5 days of Warfarin therapy. - If discharged on Warfarin prior to 5 days of - overlap therapy, the patient will need to be - assessed for post discharge needs including - *Post discharge parental anticoagulation - *Warfarin and/or parental anticoagulation education - *Follow up date to check INR post discharge At least 5 days overlap therapy as Inpatient No Meds if any: Prescribed or Continued at Discharge Note: Overlap Therapy is Warfarin and Anticoagulant Meds if any: NOT Prescribed or Continued at Discharge
[2017-03-24 10:09] LABS: ABSOLUTE BASOPHIL COUNT 0 /CUMM (0.0-0.2); ABSOLUTE EOSINOPHIL COUNT 0.4 /CUMM (0.0-0.7); ABSOLUTE GRANULOCYTE CT 8.8 /CUMM (1.4-6.5); ABSOLUTE LYMPH COUNT 1.1 /CUMM (1.2-3.4); ABSOLUTE MONOCYTE COUNT 0.3 /CUMM (0.10-0.60); BASOPHIL % 0.4 % (0.0-2.0); EOSINOPHIL % 3.4 % (0-5); GRANULOCYTE % 83.1 % (42.2-75.2); HEMATOCRIT 34.7 % (42-52); MEAN CORPUSCULAR HGB CONC 32.9 G/DL (33.0-37.0); MEAN PLATELET VOLUME 9.4 FL (7.4-10.4); PLATELET COUNT 433 /CUMM (130-400); RBC DISTRIBUTION WIDTH 13.2 % (11.5-14.5); RED BLOOD CELL CT 3.69 /CUMM (4.70-6.10); WHITE BLOOD CELL COUNT 10.6 /CUMM (4.8-10.8)
--- NOTE | 2017-03-24 12:32 | Operative Report ---
Operative/Inv Procedure Report Surgery Date: 03/24/17 Name of Procedure: 1 Open incision and drainage deep to the deep fascia with exposure of the extensor and flexor tendon and tendon sheath multiple sites right foot 2 revisional partial first ray resection right foot 3 intraoperative administration of negative pressure wound therapy 4 intraoperative administration of ankle block anesthesia Pre-Operative Diagnosis: 1 open necrotic wound right foot 2 osteomyelitis right foot 3 severe peripheral arterial disease Post-Operative Diagnosis: The same Estimated Blood Loss: less than 50ml Surgeon/Boatbuilder Wood: ROSE VINCENT DPM Anesthesia: moderate sedation, block Operative/Procedure Note Note: After obtaining informed consent the patient was brought to the operating room and placed on the operating table in supine position. The patient isn't securely fastened to the operating table utilizing safety belt. After administration of IV sedation, 10 mL of 0.5% Marcaine plain was infiltrated about the patient's right ankle. Right foot and ankle then scrubbed prepped and draped in usual aseptic manner. Attention directed right foot, where a large full-thickness necrotic was identified. A 15 blade was utilized sharply revised skin margins. The dissection was then carried down deep to the D fashion with exposure of the extensor and flexor tendon and tendon sheath will sites, both proximally and distally. All necrotic nonviable infected tissue sharply evacuated from the wound bed. Dissection was then carried down to the periosteum overlying the proximal first metatarsal. This was incised reflected. Sagittal bone saw was utilized performed through and through osteotomy. The distal osseous segment was freed and passed from the operative field and sent for pathologic inspection. Nipple was then irrigated with 3 L of normal sterile saline fissure 50,000 units of bacitracin. Following this, the foot was redraped and surgeon's top was changed clean gloves. Any bleeding vessels identified were cauterized or ligated as encountered. Next, negative pressure wound therapy was placed followed by Kerlix and Romero wrap. The patient is noted tolerate both procedure and anesthesia well and the patient was transported from the operating room to recovery with vital signs stable and vascular status intact all remaining digits right foot.
[2017-03-24 14:00] VITALS: BP 137/70
--- NOTE | 2017-03-24 16:21 | RADIOLOGY REPORT ---
EXAMINATION:\H\ \N\XR CHEST CLINICAL INFORMATION: PICC line placement. COMPARISON: Chest x-ray 03/20/2017 TECHNIQUE: Frontal portable view of the chest was obtained. 3:53 PM FINDINGS: Left-sided PICC line catheter tip at caval atrial junction in good position. Pacemaker lead in right atrium and right ventricle. Slight blunting of left costophrenic angle. This is likely small pleural effusion.. The blunting of the costophrenic angle is new since 03/20/2017. There is no right pleural effusion. Right costophrenic angle is sharp. No pulmonary vascular congestion. No infiltrate. IMPRESSION: 1. Left-sided PICC line catheter with tip at caval atrial junction. 2. Blunted left costophrenic angle likely due to a small pleural effusion new since chest x-ray 03/20/2017.
--- NOTE | 2017-03-24 17:41 | PN- Cardiology ---
Subjective Subjective: The patient is feeling well status post surgery. He has a wound VAC in place. No chest pain. No shortness of breath. No palpitations. No diaphoresis. Objective Vital Signs and I&Os Vital Signs Date Time Temp Pulse Resp B/P B/P Pulse O2 O2 Flow FiO2 Mean Ox Delivery Rate 03/24 1639 Nasal 3.0L Cannula 03/24 1400 98.2 67 16 137/70 97 Nasal 3.0L Cannula 03/24 0942 72 148/88 03/24 0938 72 148/88 03/24 0938 72 148/88 03/24 0800 95 Nasal 3.0L Cannula 03/24 0657 97.9 70 20 150/76 100 Nasal 2.0L Cannula 03/24 0400 Nasal 3.0L Cannula 03/24 0000 Nasal 3.0L Cannula Intake & Output 03/24 1600 03/24 0800 03/24 0000 03/23 1600 03/23 0800 03/23 0000 Intake Total 240 450 440 580 Output Total 450 400 425 500 Balance 240 0 440 -400 -425 80 Intake, IV 450 300 100 Intake, Oral 240 140 480 Number 1 Bowel Movements Output, Urine 450 400 425 500 Patient 178 lb Weight Weight Bed scale Measurement Method Physical Exam: Gen: The patient is in no acute distress HEENT: Normal nose, ears, and oropharynx. Pupils equal bilaterally. Conjunctiva normal. Neck: Supple with no JVD, no masses, and no thyromegaly Lungs: Clear to auscultation with normal respiratory effort Heart: RRR, S1, S2, no murmurs. No peripheral edema, pulse nonpalpable in the right lower extremity, and decreased in the left lower extremity Abdomen: Soft, nontender, no masses. No hepatomegaly. No splenomegaly Extremities: No clubbing or cyanosis. Normal muscle strength in the upper and lower extremities Skin: Right foot erythema. Normal skin turgor. Neuro: Cranial nerves intact. Sensation intact Current Medications: Current Medications Sig/Coral Start time Last Medication Dose Route Stop Time Status Admin Acetaminophen 1,000 MG Q8P PRN 03/20 2345 AC 03/20 N/A 1 UNIT IV 2341 Acetaminophen 650 MG Q8P PRN 03/18 2145 AC PO Amlodipine Besylate 10 MG DAILY 03/22 1000 AC 03/24 PO 0938 Aspirin 81 MG DAILY 03/23 1503 AC 03/23 PO 1640 Aspirin 81 MG DAILY 03/18 1733 AC 03/24 PO 1347 Atorvastatin Calcium 40 MG 1700 03/20 1700 AC 03/24 PO 1649 Benzonatate 100 MG TID 03/20 2200 AC 03/24 PO 1649 Dextrose/Sodium 1,000 ML Q13H 03/24 0000 AC 03/24 Chloride IV 1347 Insulin Aspart 0 Q4 03/24 0200 AC 03/24 SC 1513 Insulin Aspart 0 TIDAC 03/24 0000 DC SC Insulin Aspart 0 TIDAC/HS 03/22 1210 DC 03/23 SC 03/24 0000 2006 Insulin Detemir 8 UNITS BID 03/24 2200 AC SC Insulin Detemir 8 UNITS BID 03/23 2200 DC 03/23 SC 2117 Insulin Detemir 10 UNITS BID 03/22 2200 HI 03/22 [place] 2206 Lactobacillus 1 CAP DAILY 03/22 1000 AC 03/23 Acidophilus PO 1639 Losartan Potassium 100 MG DAILY 03/19 1000 AC 03/24 PO 0938 Metoprolol Succinate 25 MG DAILY 03/19 1000 AC 03/24 PO 0942 Morphine Sulfate 2 MG Q4P PRN 03/20 2130 AC 03/21 IV 0133 Pregabalin 50 MG TID 03/18 1737 AC 03/24 PO 1649 Sodium Chloride 2 SPRAY Q4P PRN 03/22 0800 AC THOMAS Tramadol HCl 50 MG Q6P PRN 03/18 2145 AC 03/21 PO 1853 Vancomycin HCl 1,500 MG Q24H 03/24 1730 AC Dextrose/Water 250 ML IV Vancomycin HCl 1,500 MG Q12H 03/23 1745 DC Dextrose/Water 250 ML IV Vancomycin HCl 1,500 MG Q12 03/23 1536 DC 03/23 Dextrose/Water 250 ML IV 1638 Results Last 48 Hrs of Labs/Mics: Laboratory Tests 03/24/17 0900: Anion Gap 10, Estimated GFR > 60, BUN/Creatinine Ratio 35.0 H, CBC w Diff NO MAN DIFF REQ, RBC 3.69 L, MCV 94.0, MCH 31.0, MCHC 32.9 L, RDW 13.2, MPV 9.4, Gran % 83.1 H, Lymphocytes % 10.4 L, Monocytes % 2.7, Eosinophils % 3.4, Basophils % 0.4, Absolute Granulocytes 8.8 H, Absolute Lymphocytes 1.1 L, Absolute Monocytes 0.3, Absolute Eosinophils 0.4, Absolute Basophils 0 03/23/17 0520: Anion Gap 14, Estimated GFR > 60, BUN/Creatinine Ratio 38.0 H, CBC w Diff NO MAN DIFF REQ, RBC 3.80 L, MCV 93.9, MCH 31.1 H, MCHC 33.1, RDW 13.2, MPV 9.4, Gran % 83.7 H, Lymphocytes % 9.0 L, Monocytes % 5.2, Eosinophils % 2.0, Basophils % 0.1, Absolute Granulocytes 10.1 H, Absolute Lymphocytes 1.1 L, Absolute Monocytes 0.6, Absolute Eosinophils 0.2, Absolute Basophils 0 Assessment/Plan Assessment/Plan Assessment: 1. Hypertensive urgency, improved 2. Peripheral arterial disease 3. History of current pacemaker 4. Diabetes 5. Right lower extremity cellulitis with gangrene 6. Leukocytosis Plan: * Continue current hypertension medications. * continue to monitor blood pressure * IV antibiotic therapy Continue telemetry? Not applicable
[2017-03-24 22:59] VITALS: BP 120/80
[2017-03-25 07:04] VITALS: BP 118/80
--- NOTE | 2017-03-25 07:22 | PN- Housestaff ---
Anne Obando MD 03/25/17 0722: Subjective Follow-up For: RIGHT FOOT CELLULITIS AND GANGRENE PVD UNCONTROLLED DIABETES MELLITUS Subjective: patient feeling "better than i have any other day" today. he denies pain. has no sob. no events overnight. patients wound vac continues to drain. Review of Systems Constitutional: Reports: no symptoms. Cardiovascular: Reports: no symptoms. Respiratory: Reports: no symptoms. Gastrointestinal: Reports: no symptoms. Genitourinary: Reports: no symptoms. Musculoskeletal: Reports: no symptoms. Skin: Reports: no symptoms. Objective Last 24 Hrs of Vital Signs/I&O Vital Signs Date Time Temp Pulse Resp B/P B/P Pulse O2 O2 Flow FiO2 Mean Ox Delivery Rate 03/25 1431 97.7 60 20 100/60 97 03/25 0800 98 Nasal 3.0L Cannula 03/25 0743 98.1 80 20 118/80 03/25 0742 98.1 80 20 118/80 03/25 0742 98.1 80 20 118/80 03/25 0704 98.1 80 20 118/80 98 Nasal 3.0L Cannula 03/24 2259 98.1 80 20 120/80 97 Nasal Cannula 03/24 2200 Nasal 3.0L Cannula 03/24 1639 Nasal 3.0L Cannula 03/24 1600 Nasal 3.0L Cannula Intake & Output 03/25 1600 03/25 0800 03/25 0000 Intake Total 240 270 Output Total 1 550 900 Balance -1 -504 -630 Intake, IV 150 Intake, Oral 240 120 Number 1 2 Bowel Movements Output, 150 Drainage Output, Stool 1 Output, Urine 400 900 Physical Exam General Appearance: Alert, Oriented X3, Cooperative, No Acute Distress Skin: No Rashes, bandaged foot sp right great toe amputation. purple toes but warm. Skin Temp/Moisture Exam: Warm/Dry Sepsis Skin Exam (color): Normal for Ethnicity Cardiovascular: Regular Rate, Normal S1, Normal S2, No Murmurs Lungs: Clear to Auscultation, Normal Air Movement Abdomen: Normal Bowel Sounds, Soft, No Tenderness, No Hepatospenomegaly, No Masses Neurological: Normal Speech Extremities: No Clubbing, No Cyanosis, No Edema, Normal Pulses, No Tenderness/ Swelling Current Medications: Current Medications Sig/Coral Start time Last Medication Dose Route Stop Time Status Admin Acetaminophen 1,000 MG Q8P PRN 03/20 2345 AC 03/20 N/A 1 UNIT IV 2341 Acetaminophen 650 MG Q8P PRN 03/18 2145 AC PO Amlodipine Besylate 10 MG DAILY 03/22 1000 AC 03/25 PO 0742 Aspirin 81 MG DAILY 03/23 1503 AC 03/23 PO 1640 Aspirin 81 MG DAILY 03/18 1733 DC 03/25 PO 0743 Atorvastatin Calcium 40 MG 1700 03/20 1700 AC 03/24 PO 1649 Benzonatate 100 MG TID 03/20 2200 AC 03/25 PO 0742 Dextrose/Sodium 1,000 ML Q13H 03/24 0000 DC 03/24 Chloride IV 1347 Insulin Aspart 0 AT BEDTIME 03/25 2200 SC Insulin Aspart 0 TIDAC 03/24 2100 AC 03/25 SC 1234 Insulin Aspart 0 Q4 03/24 0200 DC 03/24 SC 1733 Insulin Detemir 8 UNITS BID 03/24 2200 AC 03/25 SC 0741 Lactobacillus 1 CAP DAILY 03/22 1000 AC 03/25 Acidophilus PO 0742 Losartan Potassium 100 MG DAILY 03/19 1000 AC 03/25 PO 0743 Metoprolol Succinate 25 MG DAILY 03/19 1000 AC 03/25 PO 0742 Morphine Sulfate 2 MG Q4P PRN 03/20 2130 AC 03/21 IV 0133 Patient Medication 1 ED ONE ONE 03/25 1015 DC Teaching ED 03/25 1016 Pregabalin 50 MG TID 03/18 1737 AC 03/25 PO 0742 Sodium Chloride 2 SPRAY Q4P PRN 03/22 0800 AC 03/25 THOMAS 0750 Tramadol HCl 50 MG Q6P PRN 03/18 2145 AC 03/21 PO 1853 Vancomycin HCl 1,500 MG Q24H 03/24 1730 AC 03/24 Dextrose/Water 250 ML IV 1734 Last 24 Hrs of Lab/[place] Results Last 24 Hrs of Labs/Mics: Laboratory Tests 03/25/17 1357: ESR Westergren Cancelled 03/25/17 0552: Anion Gap 10, Estimated GFR > 60, BUN/Creatinine Ratio 29.1 H, CBC w Diff NO MAN DIFF REQ, RBC 3.42 L, MCV 93.8, MCH 31.2 H, MCHC 33.2, RDW 13.2, MPV 9.4, Gran % 86.6 H, Lymphocytes % 8.0 L, Monocytes % 4.3, Eosinophils % 1.0, Basophils % 0.1, Absolute Granulocytes 11.6 H, Absolute Lymphocytes 1.1 L, Absolute Monocytes 0.6, Absolute Eosinophils 0.1, Absolute Basophils 0 Assessment/Plan Assessment: Patient is a 71-year-old male with a past medical history significant for hypertension, hyperlipidemia, pacemaker placed 4-5 years ago, SILENT [place] PER SON, diabetes type 1 since he was 14 years old currently on an insulin pump, MILD COGNITIVE IMPAIRMENT WORKED UP BY DR. MORATAYA PRESUMED TO BE ONSET DEMENTIA, that comes to us for right foot erythema, edema of 10 days duration with the development of eschar/dark blood underneath the skin for the past 1 day. The patient recently has had poor glucose control and has seen his primary care physician Estuardo Adame MD for better control. The patient also sees a joint runner for his diabetic feet which have caused him balance issues in the recent years. The patient came here 5 days ago and was given Keflex and told to follow-up outpatient. However his skin issues have worsened since then. The patient also complains of one-month history of productive cough. In the ED the patient's vitals were temperature 97.5, heart rate 73, respiratory rate 16, blood pressure 125/53, 96% oxygen saturation on room air. Pertinent labs were sodium 144, potassium 4, creatinine 1.1, glucose 201, lactic acid 2.0, CRP greater than 9, WBC 14.7, hemoglobin 12.5. X-ray was done and showed no bony erosive or distractive changes. Tiny flecks of calcification in the soft tissue. No evidence of acute fracture. Venous Doppler showed no evidence of DVT. EKG was unchanged from March 2016 with a rate of 62 normal sinus rhythm deep S waves in V3. Patient was admitted to general medicine floors for evaluation and treatment of the following: #1 cellulitis of right foot #2 uncontrolled diabetes mellitus -HE WAS FOUND ON DUPLEX SCAN LOWER EXT TO HAVE NO FLOW IN HIS POSTERIOR TIBIAL ARTERIES AND HEAVILY CALCIFIED PLAQUE IN AORTA AND ILIAC VESSELS BUT NO FOCAL STENOSIS. 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 PATIENT IS TO HAVE LEVEMIR 8MG BID AND SS NOVOLOG QHS AND PM, dosages amended today. IMPORTANT DIRECTIONS IF PATIENT GOES BACK TO OR PER DR. ADAME: If the patient is made n.p.o. for a procedure on his foot he should receive full dose of Levemir tonight as he missed his morning dose. If n.p.o. we would begin D5 half -normal at 75 cc/h at midnight tonight. He would be placed on sliding scale NovoLog every 4 hours while n.p.o. Sliding scale NovoLog every 4 hours while n.p.o. would be less than 150 give no insulin, 151-200 give 2 units NovoLog, 201 -250 give 3 units NovoLog, 251-300 give 4 units NovoLog, 301-350 give 5 units NovoLog, 351-400 give 6 units NovoLog. #3 hematuria LIKELY FROM TRAUMATIC LOPEZ. patient not on AC OTHER THAN ASA. will monitor. urine culture negative. Lopez removed #4 guaic positive stools patient has chronically low hb secondary to chronic bleed we will refer patient to gastroenterology outpatient #5 disposition PT eval for dc reccs DNR DNI CC DIET Problem List: 1. Osteomyelitis 2. Peripheral vascular disease 3. Cellulitis Pain Ratin Pain Location: na Pain Goal: Remain pain free Pain Plan: prn Tomorrow's Labs & Rationales: cbc bep Jeff Haas 03/25/17 1156: Attending MD Review Statement Attending Statement Attending MD Statement: examined this patient, discuss w/resident/PA/PARKING LOT LABORER, agreed w/resident/PA/[employer]KING [employer] LABORER, discussed with family, reviewed EMR data (avail), discussed with nursing, discussed with case mgmt, reviewed images, amended to note Attending Assessment/Plan: Patient seen/examined bedside. Patient is admitted for Severe PVD with gangrene and osteomyelitis s/p amputation of the toe and partial 1st ray resection rt foot. Osteomyelitis: Foot (piece of bone)culture growing MRSA iv vancomycin, ID consulted for Abx, PICC line as per ID. Patient underwent stent SFA placement. Continue ASA as per Vascular surgery. Continue post operative care, encourage incentive spirometry. Titrate oxygen. Plan will be discharge to [facility]. Obtain PT consult. Follow vascular surgery, podiatry and infectious disease recommendations. Case management aware. gi/dvt prophyalxis d/w pt/son and family the care plan.
--- NOTE | 2017-03-25 07:59 | PN- Diabetes ---
Assessment/Plan Assessment: This patient has type 1 diabetes mellitus and presents with a cellulitis of the right foot and necrosis of the right great toe. The patient was transferred to the intensive care unit because of hypertension. He also went into congestive heart failure. He is now out on a regular floor. He had further surgery on his right foot yesterday. Patient is back on Levemir 8 units twice a day and sliding scale NovoLog before meals. His blood sugar is elevated this morning but he is just getting back on his usual regimen after surgery yesterday. Plan: Suggest continue Levemir 8 units twice a day. We need to alter the sliding scale NovoLog before meals since the patient is eating better. Sliding scale NovoLog three times a day before meals should be 80-150 give 3 units NovoLog, 151-200 give 4 units NovoLog, 201-250 give 5 units NovoLog, 251- 300 give 6 units NovoLog, 301-350 give 7 units NovoLog, 351-400 give 8 units NovoLog. A separate bedtime sliding scale NovoLog should be written. Bedtime sliding scale NovoLog should be less than 250 give no insulin, 251-300 give 2 units NovoLog, 301-350 give 3 units NovoLog, 351-400 give 4 units NovoLog. Subjective Subjective: Feels okay. Wants to be home Review of Systems Constitutional: Denies: chills, fever. Cardiovascular: Denies: chest pain. Respiratory: Denies: short of breath. Gastrointestinal: Denies: abdominal pain, nausea, vomiting. Objective Last 24 Hrs of Vital Signs/I&O Vital Signs Date Time Temp Pulse Resp B/P B/P Pulse O2 O2 Flow FiO2 Mean Ox Delivery Rate 03/25 0743 98.1 80 20 118/80 03/25 0742 98.1 80 20 118/80 03/25 0742 98.1 80 20 118/80 03/25 0704 98.1 80 20 118/80 98 Nasal 3.0L Cannula 03/24 2259 98.1 80 20 120/80 97 Nasal Cannula 03/24 2200 Nasal 3.0L Cannula 03/24 1639 Nasal 3.0L Cannula 03/24 1600 Nasal 3.0L Cannula 03/24 1400 98.2 67 16 137/70 97 Nasal 3.0L Cannula 03/24 0942 72 148/88 03/24 0938 72 148/88 03/24 0938 72 148/88 Intake & Output 03/25 1600 03/25 0800 03/25 0000 Intake Total 240 270 Output Total 550 900 Balance -310 -630 Intake, IV 150 Intake, Oral 240 120 Number 1 2 Bowel Movements Output, 150 Drainage Output, Urine 400 900 Vital Signs Date Time Temp Pulse Resp B/P B/P Pulse O2 O2 Flow FiO2 Mean Ox Delivery Rate 03/25 0743 98.1 80 20 118/80 03/25 0742 98.1 80 20 118/80 03/25 0742 98.1 80 20 118/80 03/25 0704 98.1 80 20 118/80 98 Nasal 3.0L Cannula 03/24 2259 98.1 80 20 120/80 97 Nasal Cannula 03/24 2200 Nasal 3.0L Cannula 03/24 1639 Nasal 3.0L Cannula 03/24 1600 Nasal 3.0L Cannula 03/24 1400 98.2 67 16 137/70 97 Nasal 3.0L Cannula 03/24 0942 72 148/88 03/24 0938 72 148/88 03/24 0938 72 148/88 Intake & Output 03/25 1600 03/25 0800 03/25 0000 Intake Total 240 270 Output Total 550 900 Balance -310 -630 Intake, IV 150 Intake, Oral 240 120 Number 1 2 Bowel Movements Output, 150 Drainage Output, Urine 400 900 Physical Exam General Appearance: alert, awake, anxious, thin Head: normal appearance Respiratory: no respiratory distress Cardiovascular: regular rate/rhythm Abdomen: normal bowel sounds Current Medications: Current Medications Sig/Coral Start time Last Medication Dose Route Stop Time Status Admin Acetaminophen 1,000 MG Q8P PRN 03/20 2345 AC 03/20 N/A 1 UNIT IV 2341 Acetaminophen 650 MG Q8P PRN 03/18 2145 AC PO Amlodipine Besylate 10 MG DAILY 03/22 1000 AC 03/25 PO 0742 Aspirin 81 MG DAILY 03/23 1503 AC 03/23 PO 1640 Aspirin 81 MG DAILY 03/18 1733 AC 03/25 PO 0743 Atorvastatin Calcium 40 MG 1700 03/20 1700 AC 03/24 PO 1649 Benzonatate 100 MG TID 03/20 2200 AC 03/25 PO 0742 Dextrose/Sodium 1,000 ML Q13H 03/24 0000 DC 03/24 Chloride IV 1347 Fentanyl Citrate 100 MCG .STK-MED ONE 03/24 0943 DC IM 03/24 0944 Insulin Aspart 0 TIDAC 03/24 2100 AC 03/25 SC 0740 Insulin Aspart 0 Q4 03/24 0200 DC 03/24 MA 1733 Insulin Detemir 8 UNITS BID 03/24 2200 AC 03/25 SC 0741 Insulin Detemir 8 UNITS BID 03/23 2200 DC 03/23 MA 2117 Lactobacillus 1 CAP DAILY 03/22 1000 AC 03/25 Acidophilus PO 0742 Losartan Potassium 100 MG DAILY 03/19 1000 AC 03/25 PO 0743 Metoprolol Succinate 25 MG DAILY 03/19 1000 AC 03/25 PO 0742 Midazolam HCl 2 MG .STK-MED ONE 03/24 0946 DC IM 03/24 0947 Morphine Sulfate 2 MG Q4P PRN 03/20 2130 AC 03/21 IV 0133 Pregabalin 50 MG TID 03/18 173 AC 03/25 PO 0742 Sodium Chloride 2 SPRAY Q4P PRN 03/22 0800 AC 03/25 THOMAS 0750 Tramadol HCl 50 MG Q6P PRN 03/18 2145 AC 03/21 PO 1853 Vancomycin HCl 1,500 MG Q24H 03/24 173 AC 03/24 Dextrose/Water 250 ML IV 1734 Findings Pertinent Lab/[place] Results: Laboratory Tests 03/25 03/24 0552 0900 Chemistry Sodium (137 - 145 mmol/L) Pending 142 Potassium (3.5 - 5.1 mmol/L) Pending 4.3 Chloride (98 - 107 mmol/L) Pending 103 Carbon Dioxide (22 - 30 mmol/L) Pending 29 Anion Gap (5 - 16) Pending 10 BUN (9 - 20 mg/dL) Pending 28 H Creatinine (0.7 - 1.2 mg/dL) Pending 0.8 Estimated GFR (>60 ml/min) > 60 BUN/Creatinine Ratio (7 - 25 %) Pending 35.0 H Hematology CBC w Diff Pending NO MAN DIFF REQ WBC (4.8 - 10.8 /CUMM) Pending 10.6 RBC (4.70 - 6.10 /CUMM) Pending 3.69 L Hgb (14.0 - 18.0 G/DL) Pending 11.4 L Hct (42 - 52 %) Pending 34.7 L MCV (80.0 - 94.0 FL) Pending 94.0 MCH (27.0 - 31.0 PG) Pending 31.0 MCHC (33.0 - 37.0 G/DL) Pending 32.9 L RDW (11.5 - 14.5 %) Pending 13.2 Plt Count (130 - 400 /CUMM) Pending 433 H MPV (7.4 - 10.4 FL) Pending 9.4 Gran % (42.2 - 75.2 %) 83.1 H Lymphocytes % (20.5 - 51.1 %) 10.4 L Monocytes % (1.7 - 9.3 %) 2.7 Eosinophils % (0 - 5 %) 3.4 Basophils % (0.0 - 2.0 %) 0.4 Absolute Granulocytes (1.4 - 6.5 /CUMM) 8.8 H Absolute Lymphocytes (1.2 - 3.4 /CUMM) 1.1 L Absolute Monocytes (0.10 - 0.60 /CUMM) 0.3 Absolute Eosinophils (0.0 - 0.7 /CUMM) 0.4 Absolute Basophils (0.0 - 0.2 /CUMM) 0
[2017-03-25 09:03] LABS: ABSOLUTE BASOPHIL COUNT 0 /CUMM (0.0-0.2); ABSOLUTE EOSINOPHIL COUNT 0.1 /CUMM (0.0-0.7); ABSOLUTE GRANULOCYTE CT 11.6 /CUMM (1.4-6.5); ABSOLUTE LYMPH COUNT 1.1 /CUMM (1.2-3.4); ABSOLUTE MONOCYTE COUNT 0.6 /CUMM (0.10-0.60); BASOPHIL % 0.1 % (0.0-2.0); HEMATOCRIT 32.1 % (42-52); MEAN CORPUSCULAR HGB 31.2 PG (27.0-31.0); MEAN CORPUSCULAR HGB CONC 33.2 G/DL (33.0-37.0); MEAN CORPUSCULAR VOLUME 93.8 FL (80.0-94.0); MEAN PLATELET VOLUME 9.4 FL (7.4-10.4); PLATELET COUNT 430 /CUMM (130-400); RBC DISTRIBUTION WIDTH 13.2 % (11.5-14.5); RED BLOOD CELL CT 3.42 /CUMM (4.70-6.10); WHITE BLOOD CELL COUNT 13.4 /CUMM (4.8-10.8)
[2017-03-25 10:02] LABS: GRANULOCYTE % 86.6 % (42.2-75.2)
--- NOTE | 2017-03-25 11:40 | PN- Infect Dx ---
Subjective Subjective: Afebrile. He has some discomfort in the right foot. Objective Last 24 Hrs of Vital Signs/I&O Vital Signs Date Time Temp Pulse Resp B/P B/P Pulse O2 O2 Flow FiO2 Mean Ox Delivery Rate 03/25 0800 98 Nasal 3.0L Cannula 03/25 0743 98.1 80 20 118/80 03/25 0742 98.1 80 20 118/80 03/25 0742 98.1 80 20 118/80 03/25 0704 98.1 80 20 118/80 98 Nasal 3.0L Cannula 03/24 2259 98.1 80 20 120/80 97 Nasal Cannula 03/24 2200 Nasal 3.0L Cannula 03/24 1639 Nasal 3.0L Cannula 03/24 1600 Nasal 3.0L Cannula 03/24 1400 98.2 67 16 137/70 97 Nasal 3.0L Cannula Intake & Output 03/25 1600 03/25 0800 03/25 0000 Intake Total 240 270 Output Total 550 900 Balance -310 -630 Intake, IV 150 Intake, Oral 240 120 Number 1 2 Bowel Movements Output, 150 Drainage Output, Urine 400 900 Physical Exam Other Physical Findings: He appears comfortable in no acute distress Extremities right foot dressing intact, with wound VAC in place; PICC in the left upper extremity in place; left groin dressing intact with no surrounding inflammation Land catheter in place Results Last 24 Hours of Lab Results: Laboratory Tests 03/25 0552 Chemistry Sodium (137 - 145 mmol/L) 140 Potassium (3.5 - 5.1 mmol/L) 4.5 Chloride (98 - 107 mmol/L) 100 Carbon Dioxide (22 - 30 mmol/L) 30 Anion Gap (5 - 16) 10 BUN (9 - 20 mg/dL) 32 H Creatinine (0.7 - 1.2 mg/dL) 1.1 Estimated GFR (>60 ml/min) > 60 BUN/Creatinine Ratio (7 - 25 %) 29.1 H Hematology CBC w Diff NO MAN DIFF REQ WBC (4.8 - 10.8 /CUMM) 13.4 H RBC (4.70 - 6.10 /CUMM) 3.42 L Hgb (14.0 - 18.0 G/DL) 10.7 L Hct (42 - 52 %) 32.1 L MCV (80.0 - 94.0 FL) 93.8 MCH (27.0 - 31.0 PG) 31.2 H MCHC (33.0 - 37.0 G/DL) 33.2 RDW (11.5 - 14.5 %) 13.2 Plt Count (130 - 400 /CUMM) 430 H MPV (7.4 - 10.4 FL) 9.4 Gran % (42.2 - 75.2 %) 86.6 H Lymphocytes % (20.5 - 51.1 %) 8.0 L Monocytes % (1.7 - 9.3 %) 4.3 Eosinophils % (0 - 5 %) 1.0 Basophils % (0.0 - 2.0 %) 0.1 Absolute Granulocytes (1.4 - 6.5 /CUMM) 11.6 H Absolute Lymphocytes (1.2 - 3.4 /CUMM) 1.1 L Absolute Monocytes (0.10 - 0.60 /CUMM) 0.6 Absolute Eosinophils (0.0 - 0.7 /CUMM) 0.1 Absolute Basophils (0.0 - 0.2 /CUMM) 0 Last 24 Hours of [place] Results: No new cultures Assessment/Plan Impression: Stable status post revisional partial first ray resection of the right foot yesterday, with placement of a wound VAC, for osteomyelitis of the right great toe secondary to MRSA. He remains afebrile with white blood cell count increased today, possibly postop in etiology, on Vancomycin, which will need to be continued for 4 weeks from his recent debridement. Suggestion: 1. Remove Land catheter 2. Obtain a postop baseline ESR and x-ray of the right foot 3. Vancomycin level with his dose on March 26 4. Continue Vancomycin 5. Will need a weekly CBC, ESR, BUN/creatinine and Vancomycin trough level while on Vancomycin
--- NOTE | 2017-03-25 12:56 | Discharge Summary ---
Visit Information Visit Dates Admission Date: 03/18/17 Discharge Date: 03/30/17 Hospital Course Course Attending Physician: Jeff Haas MD Primary Care Physician: Deep LOZANO,Estuardo Gómez Consulting Request: Consulting Specialty: Infectious Disease Consulting Physician: Reason for Consult: MRSA osteomyelitis Hospital Course: Patient is a 71 YO M with PMH significant for Type I DM on insulin pump, NSTEMI (EF 45-50%), PPM secondary to 2nd degree HB about 7 years ago, osteomyelitis on the right feet with small bone resection, hyperlipidemia, mild memory deficits presented with progressively worsening right lower extremity cellulits and new onset discoloration of the great toe region after failed outpatient (keflex) antibiotic therapy. At presentation Vital signs are significant for blood pressure of 168/74 mmHg, afebrile. Physical examination is significant for bleeding from the right great toe, warm to touch, 1+ dorsalis pedis pulsations, no sensations in the great toe. Sensations in bilateral lower extremeties are intact (except for the right great toe). Labs today show white count is of 14 CRP 9, ESR 88 imaging ruled out DVT, pending arterial Doppler arterial and MRI of foot. EKG - HR 80, atiral sensed ventricular paced rhythm, no new changes. Problem list 1. Gangrene with MRSA osteomyelitis 2. Significant peripheral artery disease - s/p angioplasty and stenting of SFA 3. Second-degree heart block status post permanent pacemaker 4. Type 1 diabetes mellitus with insulin pump 5. HTN 6. History of an NSTEMI with last echo showing EF 45-50% () 7. Chronic productive cough with whitish phlegm production in exsmoker 8. HLD Admitted to general medicine floor MRSA osteomyelitis of right foot Intially started on IV unasyn for presumed cellulits with wet gangrene. Underwent debridement twice and bone cultures grew MRSA. started on IV vancomycin for a total of 4 weeks. He needs to be monitored with weekly ESR, CBC , vanoc trough level while on vancomycin. After foot xray right foot xray shows no posoperative changes. Wound vac in place. Underwent PICC line placement on at bedside for IV vanco till 04/21/17. His trough level on 03/26/17 is 7.9 - should be around 15-20. Trough was done on 03/28 which was 12.8. Another is ordered for 2/5 before his 10pm vanco dose BUT PATIENT WILL LEAVE BEFORE THEN FOR STR, WE WILL REQUEST STR DO VANCO TROUGH 30 MINUTES BEFORE 10PM DOSE. Extensive Peripheral vascular disease He found to have extensive PVD with stenosis of popliteal, bilateral distal superficial femoral arteries, bilateral popliteal arteries, bilateral anterior tibial, peroneal and posterior tibial arteries resulting in multifocal areas of severe stenosis/occlusion. Underwent angioplasty of SFA but bifurcation did not allow advancement of the guidewire so stenosis remains. On ASA daily. follow up with . Discoloration of the right foot toes Patient had discoloration of his 2nd great toe with most likely eventual dry gangrene. We had a long discussion with (podiatry) and (vascualr surgeon). It is evident that blood supply to the right foot is compromised with extensive peripheral vascular disease which cannot be intervened. Approach in this case scenario is to follow up closely with with weekly appointments and as per Dr. Moreno and Dr. Venegas, "the toes will declare themselves". They do not think any active intervention at this point is indicated. The tissue with resonably good blood supply will remain viable and the remaining tissue will delineate itself. Hypertensive urgency Patient had significant peripheral vascular disease and unable to palpate pulses well. He did have significant rise in BP without any symptoms on day 1 of hospitalization requiring ICU transfer. CXR did show vascular congestion. Hypertensive regimen ARMED CUSTOM PROTECTION OFFICER is lisinopril 2.5mg daily, Metoprolol succinate 25mg daily, losartan 100mg. After the episode of urgency - amlodipine dose increased to 10mg daily while losartan and metoprolol succinate continued at the same dose. Type I DM on insulin pump Sliding scale and levemir dosing as per recommendations. Levemir is 10units BID. Dr. Adame is his PCP and lip cutter and scorer. He is closely in follow up with the patient during this admission. Please follow up sugars TID after discharge before meals and after before bed. HbA1C during this admission is 8.3. Discontinued pump during admission as per the protocol. Please provide Carbohydrate consistency 1 diet Anemia Patient has a baseline hemoglobin in the 11-12 range. On this admission he was found to be guaiac positive but not actively bleeding. He has seen Dr. Roca before and has had a colonoscopy remotely. As a result off the operative blood loss and the osteomyelitis with anemia of chronic disease, his hemoglobin drifted down to 9's. Once he is stable please follow-up on the hemoglobin and he needs an outpatient GI follow-up for the guaiac positive stool in the setting of anemia that can be done as an outpatient. Diabetic neuropathy Continue pregabalin DVT prophylaxis ALPS Code status DNR/DNI Complications: Transferred to ICU for hypertensive urgency, improved with increasing antihypertensive regimen. Transferred to floor once stable. Allergies: Coded Allergies: NO KNOWN ALLERGIES (12/07/15) Significant Procedures: Arterial Doppler on 03/19/17 RIGHT LEG: Common Femoral: 229/21 Profunda Femoris: Proximal SFA: 101/17 Mid SFA: 107/21 Distal SFA: 119/2 Popliteal: 105/19 Anterior tibial: 83/19 Peroneal: 122/23 Posterior tibial: No flow Dorsalis pedis: 100/20 LEFT LEG: Common Femoral: 190/16 Profunda Femoris: 117/0 Proximal SFA: 109/12 Mid SFA: 175/12 Distal SFA: 188/13 Popliteal: 125/12 Anterior tibial: 88/4 Peroneal: 102/0 Posterior tibial: No flow Dorsalis pedis: 82/[address], heavily calcified plaque in the aorta and iliac vessels was seen but no focal stenoses are identified. The current study demonstrates some areas of velocity acceleration, for example in the common femoral arteries and mid and distal SFA on the left. Peripheral vascular disease is present as indicative by monophasic flow and occluded posterior tibial arteries. Further anatomic definition could be obtained with CT angiography. IMPRESSION: Peripheral vascular disease is present as indicative by monophasic flow and occluded posterior tibial arteries. Further anatomic definition could be obtained with CT angiography. Foot Xray 03/18/17 IMPRESSION: 1. 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 Tiny flecks of calcification are noted within the soft tissues. 2. No radiographic evidence of acute fracture is noted at this time\\ Venous doppler on 03/18/17 IMPRESSION: Normal triplex scan without evidence of deep venous thrombosis involving the lower extremity. Aorta with runoff CTA IMPRESSION: 1. Iliac arteries are patent. Focal severe stenosis in the bilateral distal superficial femoral arteries. Focal areas of severe stenoses in the bilateral popliteal arteries. There is extensive peripheral arterial disease within the bilateral anterior tibial, peroneal and posterior tibial arteries resulting in multifocal areas of severe stenosis/occlusion. 2. Mild cardiomegaly. Trace left pleural effusion and bibasilar atelectasis. 3. Other stable findings as described. CXR on 03/20/17 IMPRESSION: Diffusely increased interstitial prominence suspicious for interstitial shaila CXR repeat 8hrs later on 03/20/17 IMPRESSION: 1. Significant interval improvement of previously documented presumed interstitial edema since the chest radiograph done earlier today. 2. Interval development of focal patchy airspace disease at right lung base, may represent evolving pneumonia. No other significant change. Femur Xray 03/23/17 IMPRESSION: Administrative dictation for intraoperative fluoroscopy and image archiving in PACS. Please refer to operative notes for details. CXR on 03/24/17 IMPRESSION: 1. Left-sided PICC line catheter with tip at caval atrial junction. 2. Blunted left costophrenic angle likely due to a small pleural effusion new since chest x-ray 03/20/2017. Operative/Inv Procedure Report Surgery Date: 03/23/17 Name of Procedure: - Ultrasound-guided left common femoral artery access - Aortogram - Third order right leg angiogram - Atherectomy of right SFA - Angioplasty of right SFA Pre-Operative Diagnosis: Right first toe gangrene Post-Operative Diagnosis: Same Estimated Blood Loss: scant Surgeon/Sql Developer Dba: KATHLEEN VENEGAS MD Anesthesia: laryngeal mask airway Operative/Procedure Note Note: Patient presented with gangrene of the right great toe. He underwent I and D. The patient was scheduled for right leg angiogram. The nature of the procedure including its possible complications which includes but not limited to bleeding, infection, blood clots, injury to vessels and need for re-intervention were discussed. An informed consent was obtained. Patient was taken to the operating room and placed supine on the table. A timeout was called according to protocol. After satisfactory induction of anesthesia, the patient was prepped and draped in standard surgical fashion. Using an ultrasound, left common femoral artery was accessed using micropuncture technique. A 121 Rentalsson wire was advanced into the aorta under direct fluoroscopic guidance. The micropuncture sheath was exchanged with a short 5 Faroese sheath. An Omni flush catheter was advanced over the wire and placed into the abdominal aorta. An aortogram was performed which showed patent aorta with mild disease. Bilateral common iliac, external iliac, and intracardiac arteries were patent with mild disease. Then with aid of a Omni flush catheter and Bentson wire, right iliac artery system was selected. The Omni flush catheter was exchanged with a 5 Faroese glide catheter which was advanced over the wire and placed into the proximal right common femoral artery. From this position, right leg angiogram was performed which showed patent common femoral and profunda femoris. SFA was patent with moderate diffuse disease. There was occlusion short segment mid SFA lesion. There was also a plaque at the distal SFA. The Oakes wire was advanced into the mid SFA with aid of a glide catheter. The 5 Faroese sheath was exchanged with a 70 cm 6 Faroese Felix sheath. 6000 units of heparin was given. The decision was made to intervene. Using an 018 wire, I crossed the nearly occlusion segment in the SFA. I then advanced a wire into the popliteal artery. An 018 quick cross catheter was advanced over the wire and placed into the popliteal artery. From this position, right leg angiogram was performed which showed patent popliteal artery. Proximal anterior tibial artery was patent but it occluded and reconstituted distally. There were 2 large collaterals at the occlusion of the anterior tibial artery. Peroneal artery and posterior tibial arteries were occluded. There was multiple collaterals throughout the leg. I was able to select the anterior tibial artery proximally and advanced the quick cross into the proximal wanted tibial artery. The wanted wire was exchanged with an 014 victory wire. Attempts at crossing the occlusion in the anterior tibial artery was unsuccessful. On one attempt, a some intimal plane was created. Attempts with the 014 wire was made to cross the occlusion which was unsuccessful. At this time, the decision was made to treat near occlusion segment in the SFA. A 01 4 VIPER wire was advanced through the SFA lesion. A 125 CSI atherectomy device was advanced over the wire and atherectomy of the SFA was performed. The SFA was then angioplastied with 5x40mm balloon. I then advanced the 6 x 150 mm balloon over the viper wire. Was not able to advance the balloon further into the distal SFA. The tip of the viper wire was stuck into the tip of the balloon. On removal of the wire, its tip broke off and remained caught into the balloon. I then carefully pulled back the balloon and with it the tip of the wire came. The balloon and the wire tip was pulled into the Felix sheath under direct fluoroscopic guidance. I pulled the balloon and tip of the wire all into the proximal sheath. I then iraida wired a Bentson wire into the sheath and into the aorta. The Felix sheath which housed the wire tip and the balloon was removed all in one piece. I then placed a short 6 Faroese sheath over the wire. An Omni flush catheter was advanced over the wire and right iliac artery system was selected again. With fluoroscopy, we looked at both the right and left lower extremity to make sure there was no wire fragments left and this was confirmed. I then advanced an 035 wire into the popliteal artery. An 035 platform 6 x 150 mm balloon was advanced over the wire and angioplasty of SFA was performed Angiography through the sheath after the angioplasty showed brisk flow through the SFA into the popliteal. On completion angiogram, the distal anterior tibial artery was patent and gave rise to dorsalis pedis. Wires and catheters were removed. The Felix sheath was exchanged with a short 6 Faroese sheath. The puncture site was then closed with Exoseal device. 5 minutes of manual pressure was applied to the left groin. Sterile dressing was then applied. The patient tolerated the procedure well and was taken to the PACU in stable condition. DICTATED BY: Kathleen Venegas MD DATE/TIME DICTATED:03/26/171556 TECHNICAL SUPPORT ASSOCIATE:CAMILLA DATE/TIME TRANSCRIBED:03/26/171556 REPORT NUMBER:[id number] CONFIDENTIAL, DO NOT COPY WITHOUT APPROPRIATE AUTHORIZATION. Pertinent Lab Results: as above Disposition Summary Disposition Principal Diagnosis: MRSA osteomyelitis Significant peripheral artery disease - s/p angioplasty of SFA Additional Diagnosis: Second-degree heart block status post permanent pacemaker Type 1 diabetes mellitus with insulin pump Uncontrolled HTN History of an NSTEMI with last echo showing EF 45-50% () Chronic productive cough with whitish phlegm production in exsmoker HLD Discharge Disposition: short term rehab Discharge Instructions General Discharge Information Code Status: Do Not Resucitate/Intubat Patient's Diet: Carbohydrate consistent 1 diet Patient's Activity: as tolerated Follow-Up Instructions/Appts: 1. PLEASE FOLLOW UP WITH YOUR PCP DR. ADAME IN ONE WEEK 2. PLEASE FOLLOW WITH VASCULAR IN ONE WEEK 3. PLEASE FOLLOW WITH [facility]ATRY [facility] ON THURSDAY 04/06 4. PLEASE HAVE CBC, ESR, BUN/CR AND VANCOMYCIN TROUGH LEVEL BEFORE DOSING DONE ONCE A WEEK (PLEASE DO FIRST ONE TONIGHT BEFORE 10PM VANCO DOSING) 5. PLEASE CONTINUE VANCOMYCIN BID DOSING UNTIL 04/21/17 6. PLEASE FOLLOW UP WITH DR. LAWLER [employer] S[employer] INSTRUCTOR FOR EVALUATION OF GI BLEED Medications at Discharge Discharge Medications: Stop taking the following medications: Insulin Aspart (Novolog) 100 UNIT/ML CARTRIDGE Atorvastatin Calcium (Atorvastatin Calcium) 10 MG TABLET ORAL As Directed Qty = 90 Amlodipine (Norvasc) 2.5 MG TABLET ORAL DAILY Atorvastatin Calcium (Atorvastatin Calcium) 10 MG TABLET ORAL THURSDAY TO THURSDAY Continue taking these medications: Aspirin (Children's Aspirin) 81 MG TAB.CHEW 1 Tablet ORAL DAILY Pregabalin (Lyrica) 50 MG CAPSULE 1 Capsule ORAL THREE TIMES DAILY Comments: NOT GIVEN Metoprolol Succ XL (Toprol XL) 25 MG TAB 1 Tablet ORAL DAILY Comments: Last Taken: 03/30/17 Time: 1000AM Losartan (Cozaar) 100 MG TABLET 1 Tablet ORAL DAILY Comments: Last Taken: 03/30/17 Time: 1000AM Fluticasone Furoate (Flonase Sensimist) 27.5 MCG/ACTUATION SPRAY.SUSP 2 Puff NASAL DAILY Comments: NOT GIVEN Start taking the following new medications: Vancomycin HCl (Vancomycin HCl) 1 GRAM VIAL.PORT 1 VIAL INTRAVEN TWICE DAILY Qty = 42 No Refills Instructions: GIVE UNTIL March. Comments: Last Taken: 03/30/17 Time: 1000AM Insulin Aspart (Novolog) 100 UNIT/ML VIAL 0 Inject into fatty tissue 3 TIMES DAILY BEFORE MEALS Qty = 90 No Refills Instructions: GLUCOSE LESS THAN 80 GIVE NO INSULIN GLUCOSE 80-150 GIVE 3 UNITS 151-200 GIVE 5 UNITS 201-250 GIVE 6 UNITS 251-300 GIVE 7 UNITS 301-350 GIVE 8 UNITS 351-400 GIVE 9 UNITS greater than 400 give 9 units and CALL MD Comments: Last Taken: 03/30/17 Time: 1200 Insulin Detemir (Levemir) 100 UNIT/ML VIAL 10 Units Inject into fatty tissue TWICE DAILY Qty = 60 No Refills Comments: Last Taken: 03/29/17 Time: 900PM Insulin Aspart (Novolog) 100 UNIT/ML VIAL 0 Inject into fatty tissue TAKE AT BEDTIME Qty = 30 No Refills Instructions: LESS THAN GLUCOSE 250, GIVE NO INSULIN 251-300 GIVE 2 UNITS 301-350 GIVE 3 UNITS 351-400 GIVE 4 UNITS Comments: Last Taken: 03/30/17 Time: 1200 Amlodipine Besylate (Amlodipine Besylate) 10 MG TABLET 1 Tablet ORAL DAILY Qty = 30 No Refills Comments: Last Taken: 03/30/17 Time: 1000AM Acetaminophen (Tylenol Extra Strength) 500 MG TABLET 1 Tablet ORAL THREE TIMES DAILY Qty = 10 No Refills Comments: NOT GIVEN Atorvastatin Calcium (Lipitor) 40 MG TABLET 1 Tablet ORAL DAILY Qty = 30 No Refills Comments: Last Taken: 03/29/17 Time: 500PM Copies To: Haim Moreno DPM; Deep LOZANO,Estuardo Gómez; Erasto LOZANO,Raymundo Alexandra; Theo LOZANO, Kathleen Attending MD Review Statement Documenting Attending: Valeriano LOZANO,Lu Gregg
[2017-03-25 14:31] VITALS: BP 100/60
--- NOTE | 2017-03-25 15:22 | RADIOLOGY REPORT ---
EXAMINATION: XR FOOT, RIGHT CLINICAL INFORMATION: Osteomyelitis right foot. COMPARISON: Right foot series dated 03/18/2017. TECHNIQUE: AP, lateral, and oblique views of the right foot. FINDINGS: The patient is status post resection of the first digit of the right foot to the level of the proximal metatarsal. Postoperative changes are present. The remainder of the bony structures are unchanged by comparison with the prior study. A postsurgical evacuation drain is present over the dorsum of the foot. IMPRESSION: Postoperative appearance of the right foot as described..
--- NOTE | 2017-03-25 15:24 | RADIOLOGY REPORT ---
EXAMINATION: XR FOOT, LEFT CLINICAL INFORMATION: Largest of osteomyelitis, of the right foot, status post amputation right foot for wet gangrene. COMPARISON: There are no prior studies of the left foot for comparison, right foot images were performed on the same day as the current study. TECHNIQUE: AP, lateral, and oblique views of the left foot. FINDINGS: Heavy vascular calcifications are present throughout the left foot. No cortical defects are noted throughout the bony structures, with no evidence of bony destructive changes. No focal soft tissue swelling is noted. The bony alignment is within normal limits. IMPRESSION: No acute findings.
[2017-03-25 22:39] VITALS: BP 112/60
[2017-03-26 06:20] VITALS: BP 124/68
--- NOTE | 2017-03-26 07:36 | PN- Housestaff ---
Gisella LOZANO,Anne 03/26/17 0736: Subjective Follow-up For: RIGHT FOOT CELLULITIS AND GANGRENE PVD UNCONTROLLED DIABETES MELLITUS Subjective: Patient reports that he feels "the same" today. No complaints. No events overnight. Patient is on 2L NC. He notes that his cough is not bothering him anymore. Review of Systems Constitutional: Reports: no symptoms. EENTM: Reports: no symptoms. Cardiovascular: Reports: no symptoms. Respiratory: Reports: no symptoms. Gastrointestinal: Reports: no symptoms. Genitourinary: Reports: no symptoms. Musculoskeletal: Reports: no symptoms. Skin: Reports: see HPI, lesions. Neurological/Psychological: Reports: no symptoms. Objective Last 24 Hrs of Vital Signs/I&O Vital Signs Date Time Temp Pulse Resp B/P B/P Pulse O2 O2 Flow FiO2 Mean Ox Delivery Rate 03/26 1456 98.4 88 18 132/80 94 Room Air 03/26 1157 98.0 73 20 128/68 03/26 0921 73 128/68 03/26 0920 73 128/68 03/26 0919 73 124/68 03/26 0620 98.0 73 20 124/68 94 Nasal Cannula 03/26 0000 98 Nasal 3.0L Cannula 03/25 2239 98.1 67 20 112/60 98 Nasal Cannula 03/25 2200 96 Nasal 3.0L Cannula Intake & Output 03/26 1600 03/26 0800 03/26 0000 Intake Total 600 200 250 Output Total 350 400 Balance 600 -150 -150 Intake, IV 250 Intake, Oral 600 200 Number 0 Bowel Movements Output, 50 Drainage Output, Urine 350 350 Patient 185 lb Weight Weight Bed scale Measurement Method Physical Exam General Appearance: Alert, Cooperative, No Acute Distress, AOx2 Skin: No Rashes, patient has right foot wound vac, toe amputation, remaining toes slightly purple in coloration but warm to touch. wound is clean otherwise. groin access for stent is clean and bandaged. Skin Temp/Moisture Exam: Warm/Dry Sepsis Skin Exam (color): Normal for Ethnicity HEENT: Atraumatic, EOMI, Mucous Membr. moist/pink Neck: Supple, No JVD Cardiovascular: Regular Rate, Normal S1, Normal S2, No Murmurs Lungs: Clear to Auscultation, Normal Air Movement Abdomen: Normal Bowel Sounds, Soft, No Tenderness Neurological: Normal Speech Extremities: No Clubbing, No Edema, Normal Pulses, pulses palpated in both legs Current Medications: Current Medications Sig/Coral Start time Last Medication Dose Route Stop Time Status Admin Acetaminophen 1,000 MG Q8P PRN 03/20 2345 AC 03/20 N/A 1 UNIT IV 2341 Acetaminophen 650 MG Q8P PRN 03/18 2145 AC PO Amlodipine Besylate 10 MG DAILY 03/22 1000 AC 03/26 PO 0920 Aspirin 81 MG DAILY 03/23 1503 AC 03/26 PO 0921 Atorvastatin Calcium 40 MG 1700 03/20 1700 AC 03/26 PO 1704 Benzonatate 100 MG TID 03/20 2200 AC 03/26 PO 1704 Insulin Aspart 0 TIDAC 03/26 1200 AC 03/26 SC 1705 Insulin Aspart 0 TIDAC 03/26 0800 DC 03/26 SC 0919 Insulin Aspart 0 AT BEDTIME 03/25 2200 AC 03/25 [place] 2241 Insulin Aspart 0 TIDAC 03/25 2045 DC 03/25 SC 2100 Insulin Aspart 0 TIDAC 03/24 2100 DC 03/25 VT 1743 Insulin Detemir 10 UNITS BID 03/26 1000 AC VT Insulin Detemir 8 UNITS BID 03/24 2200 DC 03/26 VT 0918 Lactobacillus 1 CAP DAILY 03/22 1000 AC 03/26 Acidophilus PO 0919 Losartan Potassium 100 MG DAILY 03/19 1000 AC 03/26 PO 0921 Metoprolol Succinate 25 MG DAILY 03/19 1000 AC 03/26 PO 0919 Morphine Sulfate 2 MG Q4P PRN 03/20 2130 AC 03/21 IV 0133 Sodium Chloride 2 SPRAY Q4P PRN 03/22 0800 AC 03/25 THOMAS 0750 Tramadol HCl 50 MG Q6P PRN 03/18 2145 DC 03/25 PO 1951 Vancomycin HCl 1,500 MG Q24H 03/24 1730 AC 03/26 Dextrose/Water 250 ML IV 1705 Last 24 Hrs of Lab/Fransisco Results Last 24 Hrs of Labs/Mics: Laboratory Tests 03/26/17 1715: Random Vancomycin 7.9 03/26/17 0847: ESR Westergren 90 H 03/26/17 0613: Anion Gap 10, Estimated GFR > 60, BUN/Creatinine Ratio 34.5 H, CBC w Diff NO MAN DIFF REQ, RBC 3.07 L, MCV 93.2, MCH 31.5 H, MCHC 33.8, RDW 13.4, MPV 9.4, Gran % 77.2 H, Lymphocytes % 14.4 L, Monocytes % 4.9, Eosinophils % 3.1, Basophils % 0.4, Absolute Granulocytes 8.4 H, Absolute Lymphocytes 1.6, Absolute Monocytes 0.5, Absolute Eosinophils 0.3, Absolute Basophils 0 Assessment/Plan Assessment: Patient is a 71-year-old male with a past medical history significant for hypertension, hyperlipidemia, pacemaker placed 4-5 years ago, SILENT AL PER SON, diabetes type 1 since he was 14 years old currently on an insulin pump, MILD COGNITIVE IMPAIRMENT WORKED UP BY DR. MORATAYA PRESUMED TO BE ONSET DEMENTIA, that comes to us for right foot erythema, edema of 10 days duration with the development of eschar/dark blood underneath the skin for the past 1 day. The patient recently has had poor glucose control and has seen his primary care physician Estuardo Adame MD for better control. The patient also sees a board saw runner for his diabetic feet which have caused him balance issues in the recent years. The patient came here 5 days ago and was given Keflex and told to follow-up outpatient. However his skin issues have worsened since then. The patient also complains of one-month history of productive cough. In the ED the patient's vitals were temperature 97.5, heart rate 73, respiratory rate 16, blood pressure 125/53, 96% oxygen saturation on room air. Pertinent labs were sodium 144, potassium 4, creatinine 1.1, glucose 201, lactic acid 2.0, CRP greater than 9, WBC 14.7, hemoglobin 12.5. X-ray was done and showed no bony erosive or distractive changes. Tiny flecks of calcification in the soft tissue. No evidence of acute fracture. Venous Doppler showed no evidence of DVT. EKG was unchanged from March 2016 with a rate of 62 normal sinus rhythm deep S waves in V3. Patient was admitted to general medicine floors for evaluation and treatment of the following: #1 cellulitis of right foot #2 uncontrolled diabetes mellitus #3 hypertension -HE WAS FOUND ON DUPLEX SCAN LOWER EXT TO HAVE NO FLOW IN HIS POSTERIOR TIBIAL ARTERIES AND HEAVILY CALCIFIED PLAQUE IN AORTA AND ILIAC VESSELS BUT NO FOCAL STENOSIS. 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 Vanco doses have been prescribed. Patient will need a weekly CBC, ESR, BUN/creatinine and vancomycin trough level while on vancomycin. INSTRUCTIONS INCLUDED ON W10 AND DC SUMMARY. VANCO TROUGH DONE TODAY WAS 7.9 PATIENT HAD WOUND CLOSURE/VAC with continued drainage PATIENT IS CONTINUED ON ASA 81 Patient to follow up with Dr. Venegas outpatient Repeat ESR done today show a similar ESR compared to prior level 88 vs 90 Right foot xray yesterday showed post operative changes and remainder of bony structures unchanged. Patient to follow up with Dr. Moreno at the wound center on Thursday 03/30 #2 Uncontrolled diabetes mellitus Patient found to have HbA1c of 10.5 on admission Estuardo Adame MD, his PCP and shear setter has been consulted We followed recommendations daily and have wrote discharge medications as specified in last note by Dr. Adame Discharged with 10 units levemir bid with adjusted novolog sliding scale qac and a separate sliding scale qhs. IMPORTANT DIRECTIONS IF PATIENT GOES BACK TO OR PER DR. ADAME: If the patient is made n.p.o. for a procedure on his foot he should receive full dose of Levemir tonight as he missed his morning dose. If n.p.o. we would begin D5 half -normal at 75 cc/h at midnight tonight. He would be placed on sliding scale NovoLog every 4 hours while n.p.o. Sliding scale NovoLog every 4 hours while n.p.o. would be less than 150 give no insulin, 151-200 give 2 units NovoLog, 201 -250 give 3 units NovoLog, 251-300 give 4 units NovoLog, 301-350 give 5 units NovoLog, 351-400 give 6 units NovoLog. #3 Hematuria LIKELY FROM TRAUMATIC LOPEZ. Patient not on AC OTHER THAN ASA. Urine culture negative. Lopez removed HEMATURIA RESOLVED #4 Guaic positive stools Patient has chronically low Hb secondary to GI bleed Hb since admission has decreased from 12.5 to 9.7 No abdominal pain on change in bowels We will refer patient to gastroenterology outpatient - Dr. Tran #5 Disposition PT is suggesting STR Patient was set to leave today but insurance issues have kept him in house Case management to help with placement tomorrow Patient has required O2 on and off during this admission. We did an oxygen level on RA and found it to be 95%. Stable for DC without O2. #6 Hypertension Patient is continued on metoprolol, losartan, and amlodipine 5mg to be prescribed at discharge. Patient already sees Dr. Avery and will follow up with him outpatient. DNR DNI CC DIET Problem List: 1. Guaiac + stool 2. Osteomyelitis 3. Peripheral vascular disease 4. Cellulitis 5. Hypertension Pain Ratin Pain Location: patient has severe neuropathy and is unable to feel his toes where his surgery was Pain Goal: Remain pain free Pain Plan: prn Tomorrow's Labs & Rationales: none Valeriano LOZANO,Lu 03/26/17 1226: Attending MD Review Statement Attending Statement Attending MD Statement: examined this patient, discuss w/resident/PA/COMMUNITY ORGANIZATION DIRECTOR, agreed w/resident/PA/COMMUNITY ORGANIZATION DIRECTOR, reviewed EMR data (avail), discussed with nursing, discussed with case mgmt, reviewed images Attending Assessment/Plan: 71-year-old male with past medical history of type 1 diabetes, diabetic neuropathy, htn and cad. He is here status post treatment for cellulitis, gangrene and peripheral arterial disease. He had amputation of the toe and has MRSA osteomyelitis that we need 4 weeks of IV Vanco per ID. He has a PICC line placed for the same. He also had an SFA stent placed and is on antiplatelet therapy now. His blood pressure regimen has been modified for uncontrolled hypertension and the plan is now for rehabilitation placement. His hemoglobin has been slowly drifting down and we think that's a combination off the blood loss associated with the amputation, anemia of chronic disease in the setting of osteomyelitis and he is also guaiac positive. He's had a colonoscopy before in the remote past and will need outpatient GI follow-up for the same.
[2017-03-26] MEDS ORDERED: VANCOMYCIN1.5 GM/251 IV ×2 (08:07→09:43)
--- NOTE | 2017-03-26 08:59 | PN- Diabetes ---
Assessment/Plan Assessment: This patient has type 1 diabetes mellitus and presents with a cellulitis of the right foot and necrosis of the right great toe. The patient was transferred to the intensive care unit because of hypertension. He also went into congestive heart failure. He is now out on a regular floor. He had further surgery on his right foot yesterday. Patient is back on Levemir 8 units twice a day and sliding scale NovoLog before meals. Yesterday his blood sugars became very high. His sliding scale NovoLog before meals was increased. Plan: Suggest increase the patient's Levemir to 10 units twice a day. Change his diet to a carbohydrate 1. We need to revise the patient's sliding scale before meals. Suggest NovoLog sliding scale before meals should be 80-150 give 4 units NovoLog, 151-200 give 6 units NovoLog, 201-250 give 7 units NovoLog, 251-300 give 8 units NovoLog, 301- 350 give 9 units NovoLog, 351-400 give 10 units NovoLog. A separate bedtime sliding scale NovoLog should be written. Sliding scale NovoLog at bedtime should be less than 250 give no insulin, 251-300 give 2 units NovoLog, 301-350 give 3 units NovoLog 351 -400 give 4 units NovoLog Objective Last 24 Hrs of Vital Signs/I&O Vital Signs Date Time Temp Pulse Resp B/P B/P Pulse O2 O2 Flow FiO2 Mean Ox Delivery Rate 03/26 619 98.0 73 20 124/68 94 Nasal Cannula 03/26 0000 98 Nasal 3.0L Cannula 03/25 2238 98.1 67 20 112/60 98 Nasal Cannula 03/25 2199 96 Nasal 3.0L Cannula 03/25 1431 97.7 60 20 100/60 97 Intake & Output 03/26 1600 03/26 0800 03/26 0000 Intake Total 200 250 Output Total 350 400 Balance -150 -150 Intake, IV 250 Intake, Oral 200 Number 0 Bowel Movements Output, 50 Drainage Output, Urine 350 350 Patient 185 lb Weight Weight Bed scale Measurement Method Vital Signs Date Time Temp Pulse Resp B/P B/P Pulse O2 O2 Flow FiO2 Mean Ox Delivery Rate 03/26 619 98.0 73 20 124/68 94 Nasal Cannula 03/26 0000 98 Nasal 3.0L Cannula 03/25 2238 98.1 67 20 112/60 98 Nasal Cannula 01/31 2200 96 Nasal 3.0L Cannula 03/25 1431 97.7 60 20 100/60 97 Intake & Output 03/26 1600 03/26 0800 03/26 0000 Intake Total 200 250 Output Total 350 400 Balance -150 -150 Intake, IV 250 Intake, Oral 200 Number 0 Bowel Movements Output, 50 Drainage Output, Urine 350 350 Patient 185 lb Weight Weight Bed scale Measurement Method Physical Exam General Appearance: thin Current Medications: Current Medications Sig/Coral Start time Last Medication Dose Route Stop Time Status Admin Acetaminophen 1,000 MG Q8P PRN 03/20 2345 AC 03/20 N/A 1 UNIT IV 2341 Acetaminophen 650 MG Q8P PRN 03/18 2145 AC PO Amlodipine Besylate 10 MG DAILY 03/22 1000 AC 03/25 PO 0742 Aspirin 81 MG DAILY 03/23 1503 AC 03/23 PO 1640 Aspirin 81 MG DAILY 03/18 1733 DC 03/25 PO 0743 Atorvastatin Calcium 40 MG 1700 03/20 1700 AC 03/25 PO 1754 Benzonatate 100 MG TID 03/20 2200 AC 03/25 PO 2120 Insulin Aspart 0 TIDAC 03/26 0800 AC SC Insulin Aspart 0 AT BEDTIME 03/25 2200 AC 03/25 SC 2241 Insulin Aspart 0 TIDAC 03/25 2045 DC 03/25 SC 2100 Insulin Aspart 0 TIDAC 03/24 2100 DC 03/25 SC 1743 Insulin Detemir 8 UNITS BID 03/24 2200 AC 03/25 SC 2120 Lactobacillus 1 CAP DAILY 03/22 1000 AC 03/25 Acidophilus PO 0742 Losartan Potassium 100 MG DAILY 03/19 1000 AC 03/25 PO 0743 Metoprolol Succinate 25 MG DAILY 03/19 1000 AC 03/25 PO 0742 Morphine Sulfate 2 MG Q4P PRN 03/20 2130 AC 03/21 IV 0133 Patient Medication 1 ED ONE ONE 03/25 1015 DC Teaching ED 03/25 1016 Pregabalin 50 MG TID 03/18 1737 DC 03/25 PO 0742 Sodium Chloride 2 SPRAY Q4P PRN 03/22 0800 AC 03/25 THOMAS 0750 Tramadol HCl 50 MG Q6P PRN 03/18 2145 DC 03/25 PO 1951 Vancomycin HCl 1,500 MG Q24H 03/24 1730 AC 03/25 Dextrose/Water 250 ML IV 1744 Findings Pertinent Lab/Fransisco Results: Laboratory Tests 03/26 03/26 03/25 03/25 0847 0613 1357 1314 Chemistry Sodium Pending Potassium Pending Chloride Pending Carbon Dioxide Pending Anion Gap Pending BUN Pending Creatinine Pending BUN/Creatinine Ratio Pending Hematology CBC w Diff Pending WBC Pending RBC Pending Hgb Pending Hct Pending MCV Pending MCH Pending MCHC Pending RDW Pending Plt Count Pending MPV Pending ESR Westergren Pending Cancelled Cancelled
[2017-03-26 09:31] LABS: ABSOLUTE BASOPHIL COUNT 0 /CUMM (0.0-0.2); ABSOLUTE EOSINOPHIL COUNT 0.3 /CUMM (0.0-0.7); ABSOLUTE GRANULOCYTE CT 8.4 /CUMM (1.4-6.5); ABSOLUTE LYMPH COUNT 1.6 /CUMM (1.2-3.4); ABSOLUTE MONOCYTE COUNT 0.5 /CUMM (0.10-0.60); BASOPHIL % 0.4 % (0.0-2.0); EOSINOPHIL % 3.1 % (0-5); GRANULOCYTE % 77.2 % (42.2-75.2); HEMATOCRIT 28.6 % (42-52); MEAN CORPUSCULAR HGB 31.5 PG (27.0-31.0); MEAN CORPUSCULAR HGB CONC 33.8 G/DL (33.0-37.0); MEAN CORPUSCULAR VOLUME 93.2 FL (80.0-94.0); MEAN PLATELET VOLUME 9.4 FL (7.4-10.4); PLATELET COUNT 417 /CUMM (130-400); RBC DISTRIBUTION WIDTH 13.4 % (11.5-14.5); RED BLOOD CELL CT 3.07 /CUMM (4.70-6.10); WHITE BLOOD CELL COUNT 10.9 /CUMM (4.8-10.8)
[2017-03-26] MEDS ORDERED: LEVEMIR100 UNIT/1 SC (09:38)
[2017-03-26] MEDS ORDERED: NOVOLOG100 UNIT/2 SC ×3 (09:38→09:39)
[2017-03-26 11:57] VITALS: BP 128/68
[2017-03-26] MEDS ORDERED: AMLODIPINE BESY10 M1 PO (13:11)
[2017-03-26] MEDS ORDERED: ATORVASTATIN CA40 M1 PO (13:11)
[2017-03-26] MEDS ORDERED: TYLENOL EXTRA500 M2 PO (13:13)
[2017-03-26 14:56] VITALS: BP 132/80
--- NOTE | 2017-03-26 16:27 | Operative Report ---
Operative/Inv Procedure Report Surgery Date: 03/23/17 Name of Procedure: - Ultrasound-guided left common femoral artery access - Aortogram - Third order right leg angiogram - Atherectomy of right SFA - Angioplasty of right SFA Pre-Operative Diagnosis: Right first toe gangrene Post-Operative Diagnosis: Same Estimated Blood Loss: scant Surgeon/Private Secretary: KATHLEEN ELIAS MD Anesthesia: laryngeal mask airway Operative/Procedure Note Note: Patient presented with gangrene of the right great toe. He underwent I and D. The patient was scheduled for right leg angiogram. The nature of the procedure including its possible complications which includes but not limited to bleeding, infection, blood clots, injury to vessels and need for re-intervention were discussed. An informed consent was obtained. Patient was taken to the operating room and placed supine on the table. A timeout was called according to protocol. After satisfactory induction of anesthesia, the patient was prepped and draped in standard surgical fashion. Using an ultrasound, left common femoral artery was accessed using micropuncture technique. A Bentson wire was advanced into the aorta under direct fluoroscopic guidance. The micropuncture sheath was exchanged with a short 5 Taiwanese sheath. An Omni flush catheter was advanced over the wire and placed into the abdominal aorta. An aortogram was performed which showed patent aorta with mild disease. Bilateral common iliac, external iliac, and intracardiac arteries were patent with mild disease. Then with aid of a Omni flush catheter and Bentson wire, right iliac artery system was selected. The Omni flush catheter was exchanged with a 5 Taiwanese glide catheter which was advanced over the wire and placed into the proximal right common femoral artery. From this position, right leg angiogram was performed which showed patent common femoral and profunda femoris. SFA was patent with moderate diffuse disease. There was occlusion short segment mid SFA lesion. There was also a plaque at the distal SFA. The Oakes wire was advanced into the mid SFA with aid of a glide catheter. The 5 Taiwanese sheath was exchanged with a 70 cm 6 Taiwanese Felix sheath. 6000 units of heparin was given. The decision was made to intervene. Using an 018 wire, I crossed the nearly occlusion segment in the SFA. I then advanced a wire into the popliteal artery. An 018 quick cross catheter was advanced over the wire and placed into the popliteal artery. From this position, right leg angiogram was performed which showed patent popliteal artery. Proximal anterior tibial artery was patent but it occluded and reconstituted distally. There were 2 large collaterals at the occlusion of the anterior tibial artery. Peroneal artery and posterior tibial arteries were occluded. There was multiple collaterals throughout the leg. I was able to select the anterior tibial artery proximally and advanced the quick cross into the proximal wanted tibial artery. The wanted wire was exchanged with an 014 victory wire. Attempts at crossing the occlusion in the anterior tibial artery was unsuccessful. On one attempt, a some intimal plane was created. Attempts with the 014 wire was made to cross the occlusion which was unsuccessful. At this time, the decision was made to treat near occlusion segment in the SFA. A 01 4 VIPER wire was advanced through the SFA lesion. A 125 CSI atherectomy device was advanced over the wire and atherectomy of the SFA was performed. The SFA was then angioplastied with 5x40mm balloon. I then advanced the 6 x 150 mm balloon over the viper wire. Was not able to advance the balloon further into the distal SFA. The tip of the viper wire was stuck into the tip of the balloon. On removal of the wire, its tip broke off and remained caught into the balloon. I then carefully pulled back the balloon and with it the tip of the wire came. The balloon and the wire tip was pulled into the Felix sheath under direct fluoroscopic guidance. I pulled the balloon and tip of the wire all into the proximal sheath. I then iraida wired a Bentson wire into the sheath and into the aorta. The Felix sheath which housed the wire tip and the balloon was removed all in one piece. I then placed a short 6 Taiwanese sheath over the wire. An Omni flush catheter was advanced over the wire and right iliac artery system was selected again. With fluoroscopy, we looked at both the right and left lower extremity to make sure there was no wire fragments left and this was confirmed. I then advanced an 035 wire into the popliteal artery. An 035 platform 6 x 150 mm balloon was advanced over the wire and angioplasty of SFA was performed Angiography through the sheath after the angioplasty showed brisk flow through the SFA into the popliteal. On completion angiogram, the distal anterior tibial artery was patent and gave rise to dorsalis pedis. Wires and catheters were removed. The Felix sheath was exchanged with a short 6 Taiwanese sheath. The puncture site was then closed with Exoseal device. 5 minutes of manual pressure was applied to the left groin. Sterile dressing was then applied. The patient tolerated the procedure well and was taken to the PACU in stable condition.
[2017-03-26 22:55] VITALS: BP 134/62
[2017-03-27 06:01] VITALS: BP 133/72
--- NOTE | 2017-03-27 08:31 | PN- Diabetes ---
Assessment/Plan Assessment: This patient has type 1 diabetes mellitus and presents with a cellulitis of the right foot and necrosis of the right great toe. The patient was transferred to the intensive care unit because of hypertension. He also went into congestive heart failure. He is now out on a regular floor. He had further surgery on his right foot yesterday. Patient is back on Levemir 8 units twice a day and sliding scale NovoLog before meals. Yesterday his blood sugars became very high. His sliding scale NovoLog before meals was increased. The patient is concerned about his second toe next to the big toe which was amputated. It has turned black. Plan: Suggest asked Dr. Moreno to recheck his foot. The patient may need for more surgery prior to discharge. The patient's blood sugars are high. Suggest increase Levemir to 12 units twice a day (correct dose is 12 units twice a day). Continue the present sliding scale NovoLog before meals with a separate sliding scale at bedtime. His diet should be consistent carbohydrate 1. Subjective Subjective: Concerned about his foot Objective Last 24 Hrs of Vital Signs/I&O Vital Signs Date Time Temp Pulse Resp B/P B/P Pulse O2 O2 Flow FiO2 Mean Ox Delivery Rate 03/27 0601 97.7 99 18 133/72 93 02/ 2255 98.2 73 22 134/62 94 Room Air 02 1456 98.4 88 18 132/80 94 Room Air 03/26 1157 98.0 73 20 128/68 02/ 0921 73 128/68 02/ 0920 73 128/68 03/26 0919 73 124/68 Intake & Output 03/27 1600 03/27 0000 Intake Total 120 120 Output Total 450 400 Balance -330 -280 Intake, Oral 120 120 Output, Urine 450 400 Vital Signs Date Time Temp Pulse Resp B/P B/P Pulse O2 O2 Flow FiO2 Mean Ox Delivery Rate 03/27 0601 97.7 99 18 133/72 93 02/ 2255 98.2 73 22 134/62 94 Room Air 02 1456 98.4 88 18 132/80 94 Room Air 02 1157 98.0 73 20 128/68 02/01 0921 73 128/68 02/ 0920 73 128/68 02/ 0919 73 124/68 Intake & Output 02 1600 03/27 0803/27 0000 Intake Total 120 120 Output Total 450 400 Balance -330 -280 Intake, Oral 120 120 Output, Urine 450 400 Current Medications: Current Medications Sig/Coral Start time Last Medication Dose Route Stop Time Status Admin Acetaminophen 1,000 MG Q8P PRN 03/20 2345 AC 03/20 N/A 1 UNIT IV 2341 Acetaminophen 650 MG Q8P PRN 03/18 2145 AC PO Amlodipine Besylate 10 MG DAILY 03/22 1000 AC 03/26 PO 0920 Aspirin 81 MG DAILY 03/23 1503 AC 03/26 PO 0921 Atorvastatin Calcium 40 MG 1700 03/20 1700 AC 03/26 PO 1704 Benzonatate 100 MG TID 03/20 2200 AC 03/26 PO 2143 Insulin Aspart 0 TIDAC 03/26 1200 AC 03/26 SC 1705 Insulin Aspart 0 TIDAC 03/26 0800 DC 03/26 SC 0919 Insulin Aspart 0 AT BEDTIME 03/25 2200 AC 03/26 SC 2144 Insulin Detemir 10 UNITS BID 03/26 1000 AC 03/26 SC 2144 Insulin Detemir 8 UNITS BID 03/24 2200 DC 03/26 SC 0918 Lactobacillus 1 CAP DAILY 03/22 1000 AC 03/26 Acidophilus PO 0919 Losartan Potassium 100 MG DAILY 03/19 1000 AC 03/26 PO 0921 Metoprolol Succinate 25 MG DAILY 03/19 1000 AC 03/26 PO 0919 Morphine Sulfate 2 MG Q4P PRN 03/20 2130 AC 03/21 IV 0133 Ramelteon 8 MG ONCE ONE 03/26 2044 DC 03/26 PO 03/26 2045 214 Sodium Chloride 2 SPRAY Q4P PRN 03/22 0800 AC 03/25 THOMAS 0750 Vancomycin HCl 1,500 MG Q24H 03/24 1730 AC 03/26 Dextrose/Water 250 ML IV 1705 Findings Pertinent Lab/Fransisco Results: Laboratory Tests 03/26 03/26 1715 0847 Hematology ESR Westergren (0 - 10 MM) 90 H Toxicology Random Vancomycin (ug/ml) 7.9
--- NOTE | 2017-03-27 10:27 | PN- Housestaff ---
Gisella LOZANO,Anne 03/27/17 1027: Subjective Follow-up For: RIGHT FOOT CELLULITIS AND GANGRENE PVD UNCONTROLLED DIABETES MELLITUS Subjective: Patient was noted to have purple second toe on the right foot yesterday. This morning the toe appears to be more black and appear more necrotic. The patient continues to have numbness on bilateral feet due to his advanced peripheral vascular disease. He cannot move the toe. Otherwise the patient feels fine and has no complaints, no events overnight. Review of Systems Constitutional: Reports: no symptoms. Cardiovascular: Reports: no symptoms. Respiratory: Reports: no symptoms. Gastrointestinal: Reports: no symptoms. Skin: Reports: see HPI, lesions. Objective Last 24 Hrs of Vital Signs/I&O Vital Signs Date Time Temp Pulse Resp B/P B/P Pulse O2 O2 Flow FiO2 Mean Ox Delivery Rate 03/27 1408 98.2 86 20 100/60 94 Room Air 03/27 1023 98 138/72 03/27 1023 98 138/72 03/27 1023 98 138/72 03/27 0601 97.7 99 18 133/72 93 03/26 2255 98.2 73 22 134/62 94 Room Air Intake & Output 03/27 1600 03/27 0800 03/27 0000 Intake Total 120 120 Output Total 450 400 Balance -330 -280 Intake, Oral 120 120 Output, Urine 450 400 Patient 173 lb Weight Physical Exam General Appearance: Alert, Oriented X3, Cooperative, No Acute Distress Skin: No Rashes, On the right foot, the second toe is purple black with no sensation and inability to move. Great toe on the right has been amputated. Skin Temp/Moisture Exam: Warm/Dry Cardiovascular: Regular Rate, Normal S1, Normal S2, No Murmurs Lungs: Clear to Auscultation, Normal Air Movement Abdomen: Normal Bowel Sounds, Soft, No Tenderness Neurological: Normal Speech Extremities: No Clubbing, No Edema, faint pulses bilaterally. no edema, wound vac on right foot with 100cc of dark red drainage. Current Medications: Current Medications Sig/Coral Start time Last Medication Dose Route Stop Time Status Admin Acetaminophen 1,000 MG Q8P PRN 03/20 2345 AC 03/20 N/A 1 UNIT IV 2341 Acetaminophen 650 MG Q8P PRN 03/18 2145 AC PO Amlodipine Besylate 10 MG DAILY 03/22 1000 AC 03/27 PO 1023 Aspirin 81 MG DAILY 03/23 1503 AC 03/27 PO 1023 Atorvastatin Calcium 40 MG 1700 03/20 1700 AC 03/26 PO 1704 Benzonatate 100 MG TID 03/20 2200 AC 03/27 PO 1023 Insulin Aspart 0 TIDAC 03/26 1200 AC 03/27 SC 1234 Insulin Aspart 0 AT BEDTIME 03/25 2200 AC 03/26 SC 2144 Insulin Detemir 12 UNITS BID 03/27 2200 AC SC Insulin Detemir 10 UNITS BID 03/26 1000 DC 03/27 SC 1025 Lactobacillus 1 CAP DAILY 03/22 1000 AC 03/27 Acidophilus PO 1023 Losartan Potassium 100 MG DAILY 03/19 1000 AC 03/27 PO 1023 Metoprolol Succinate 25 MG DAILY 03/19 1000 AC 03/27 PO 1023 Morphine Sulfate 2 MG Q4P PRN 03/20 2130 AC 03/21 IV 0133 Ramelteon 8 MG ONCE ONE 03/26 2045 DC 03/26 PO 03/26 204 214 Sodium Chloride 2 SPRAY Q4P PRN 03/22 0800 AC 03/25 THOMAS 0750 Vancomycin HCl 1,500 MG Q24H 03/24 1730 AC 03/26 Dextrose/Water 250 ML IV 1705 Last 24 Hrs of Lab/Fransisco Results Last 24 Hrs of Labs/Mics: Laboratory Tests 03/26/17 1715: Random Vancomycin 7.9 Assessment/Plan Assessment: Patient is a 71-year-old male with a past medical history significant for hypertension, hyperlipidemia, pacemaker placed 4-5 years ago, silent GA as per son, diabetes type 1 since he was 14 years old currently on an insulin pump, mild cognitive impairment worked up by Dr. Azevedo, that comes to us for right foot erythema, edema of 10 days duration with the development of eschar/dark blood underneath the skin for the past 1 day. The patient recently has had poor glucose control and has seen his primary care physician Estuardo Adame MD for better control. The patient also sees a solid state tester for his diabetic feet which have caused him balance issues in the recent years. The patient came here 5 days ago and was given Keflex and told to follow-up outpatient. However his skin issues have worsened since then. The patient also complains of one-month history of productive cough. In the ED the patient's vitals were temperature 97.5, heart rate 73, respiratory rate 16, blood pressure 125/53, 96% oxygen saturation on room air. Pertinent labs were sodium 144, potassium 4, creatinine 1.1, glucose 201, lactic acid 2.0, CRP greater than 9, WBC 14.7, hemoglobin 12.5. X-ray was done and showed no bony erosive or distractive changes. Tiny flecks of calcification in the soft tissue. No evidence of acute fracture. Venous Doppler showed no evidence of DVT. EKG was unchanged from March 2016 with a rate of 62 normal sinus rhythm deep S waves in V3. Patient was admitted to general medicine floors for evaluation and treatment of the following: #1 cellulitis/gangrene of right foot #2 uncontrolled diabetes mellitus #3 hypertension -HE WAS FOUND ON DUPLEX SCAN LOWER EXT TO HAVE NO FLOW IN HIS POSTERIOR TIBIAL ARTERIES AND HEAVILY CALCIFIED PLAQUE IN AORTA AND ILIAC VESSELS BUT NO FOCAL STENOSIS. 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 Vanco doses have been prescribed. Today, 03/27, Raymundo Maurer MD is suggesting to increase his vancomycin dose to 1 g IV twice a day and to recheck a vancomycin TROUGH level after his fifth dose. Patient will need a weekly CBC, ESR, BUN/creatinine and vancomycin trough level while on vancomycin. INSTRUCTIONS INCLUDED ON W10 AND DC SUMMARY. Patient's ESR when osteomyelitis was diagnosed was 90. PATIENT HAD WOUND CLOSURE/VAC with continued drainage of 100 mL of dark red fluid PATIENT IS CONTINUED ON ASA 81 Patient to follow up with Dr. Venegas outpatient and with Dr. Moreno at the wound center on Thursday 03/30 Right foot xray on 03/25 showed post operative changes and remainder of bony structures unchanged. Of note patient's second toe found to be purple yesterday and today increasingly black, evidence of gangrene in that toe as well. We spoke with Dr. Moreno who stated that he had no plans for amputation of this toe during this admission. He also spoke with vascular who showed us angiogram images in depth and stated that any intervention may actually do more harm then good in terms of wound healing and compromised circulation. The plan is to continue antibiotics, aspirin and statin and let the second and third toe necrotic areas demarcate themselves. Instructions for rehabilitation facility have been included in discharge summary. #2 Uncontrolled diabetes mellitus Patient found to have HbA1c of 10.5 on admission Estuardo Adame MD, his PCP and slotter operator helper has been consulted We followed recommendations daily and have wrote discharge medications as specified in last note by Dr. Adame Discharged with 12 units levemir bid with adjusted novolog sliding scale qac and a separate sliding scale qhs. #3 Hematuria LIKELY FROM TRAUMATIC LOPEZ. Patient not on AC OTHER THAN ASA. Urine culture negative. Lopez removed HEMATURIA RESOLVED #4 Guaic positive stools Patient has chronically low Hb secondary to GI bleed Hb since admission has decreased from 12.5 to 9.7 No abdominal pain on change in bowels We will refer patient to gastroenterology outpatient - Dr. Tran #5 Disposition PT is suggesting STR Case management to help with placement tomorrow Patient has required O2 on and off during this admission. We did an oxygen level on RA and found it to be 95%. Stable for DC without O2. #6 Hypertension Patient is continued on metoprolol, losartan, and amlodipine 5mg to be prescribed at discharge. Patient already sees Dr. Avery and will follow up with him outpatient. DNR DNI CC DIET Problem List: 1. Hypertension 2. Osteomyelitis 3. Guaiac + stool 4. Peripheral vascular disease 5. Cellulitis Pain Ratin Pain Location: NA Pain Goal: Remain pain free Pain Plan: NA Tomorrow's Labs & Rationales: NONE Consulting Request: Consulting Specialty: Infectious Disease Consulting Physician: Reason for Consult: MRSA osteomyelitis Valeriano LOZANO,Lu 03/27/17 1212: Attending MD Review Statement Attending Statement Attending MD Statement: examined this patient, discuss w/resident/PA/YOUTH CAREER SPECIALIST, agreed w/resident/PA/YOUTH CAREER SPECIALIST, reviewed EMR data (avail), discussed with nursing, discussed with case mgmt, reviewed images Attending Assessment/Plan: Patient is very concerned about the dusky discoloration of his second and third toe. I spoke to Dr. Moreno and I spoke to Dr. Venegas. Dr. Venegas reviewed the OR images at length. The patient had SFA angioplasty done and not stenting. Dr. Venegas feels that the patient has very compromised circulation in his lower extremity with a high degree of atherosclerotic burden. Stenting could not be done and only angioplasty could be done. He and Dr. Moreno feel that at this point no active surgical intervention is indicated for the second or third toe. They feel he should continue his antibiotics for his osteomyelitis, continue his aspirin and statin and that over the next 2-3 weeks the second and third toe will declare itself. They feel that intervening right now could do more harm then good in terms of wound healing and compromised circulation. Dr. Moreno will actively follow the patient and will see him on Thursday in the wound care center and will see him regularly. This was put in the discharge summary and communicated to [facility]. Will clarify the insulin dose for discharge with Dr. Adame
--- NOTE | 2017-03-27 11:09 | PN- Cardiology ---
Subjective Subjective: The patient has no cardiac complaints. He underwent right SFA atherectomy and angioplasty yesterday and tolerated this well. His blood pressure remains normal. He is currently on amlodipine, metoprolol and losartan and tolerating this well. Objective Vital Signs and I&Os Vital Signs Date Time Temp Pulse Resp B/P B/P Pulse O2 O2 Flow FiO2 Mean Ox Delivery Rate 03/27 1023 98 138/72 03/27 1023 98 138/72 03/27 1023 98 138/72 03/27 0601 97.7 99 18 133/72 93 03/26 2255 98.2 73 22 134/62 94 Room Air 03/26 1456 98.4 88 18 132/80 94 Room Air 03/26 1157 98.0 73 20 128/68 Intake & Output 03/27 1600 03/27 0803/27 0000 03/26 1600 03/26 0000 Intake Total 120 120 600 200 250 Output Total 450 400 350 400 Balance -330 -280 600 -150 -150 Intake, IV 250 Intake, Oral 120 120 600 200 Number 0 Bowel Movements Output, 50 Drainage Output, Urine 450 400 350 350 Patient 185 lb Weight Weight Bed scale Measurement Method Physical Exam: He is in no distress HEENT exam is normal Chest is clear Heart soft heart sounds, no murmurs Extremities right toe gangrene noted Current Medications: Current Medications Sig/Coral Start time Last Medication Dose Route Stop Time Status Admin Acetaminophen 1,000 MG Q8P PRN 03/20 2345 AC 03/20 N/A 1 UNIT IV 2341 Acetaminophen 650 MG Q8P PRN 03/18 2145 AC PO Amlodipine Besylate 10 MG DAILY 03/22 1000 AC 03/27 PO 1023 Aspirin 81 MG DAILY 03/23 1503 AC 03/27 PO 1023 Atorvastatin Calcium 40 MG 1700 03/20 1700 AC 03/26 PO 1704 Benzonatate 100 MG TID 03/20 2200 AC 03/27 PO 1023 Insulin Aspart 0 TIDAC 03/26 1200 AC 03/27 SC 1024 Insulin Aspart 0 AT BEDTIME 03/25 2200 AC 03/26 SC 2144 Insulin Detemir 10 UNITS BID 03/26 1000 AC 03/27 SC 1025 Lactobacillus 1 CAP DAILY 03/22 1000 AC 03/27 Acidophilus PO 1023 Losartan Potassium 100 MG DAILY 03/19 1000 AC 03/27 PO 1023 Metoprolol Succinate 25 MG DAILY 03/19 1000 AC 03/27 PO 1023 Morphine Sulfate 2 MG Q4P PRN 03/20 2130 AC 03/21 IV 0133 Ramelteon 8 MG ONCE ONE 03/26 2044 DC 03/26 PO 03/26 2045 2143 Sodium Chloride 2 SPRAY Q4P PRN 03/22 0800 AC 03/25 THOMAS 0750 Vancomycin HCl 1,500 MG Q24H 03/24 1730 AC 03/26 Dextrose/Water 250 ML IV 1705 Results Last 48 Hrs of Labs/Mics: Laboratory Tests 03/26/17 1715: Random Vancomycin 7.9 03/26/17 0847: ESR Westergren 90 H 03/26/17 0613: Anion Gap 10, Estimated GFR > 60, BUN/Creatinine Ratio 34.5 H, CBC w Diff NO MAN DIFF REQ, RBC 3.07 L, MCV 93.2, MCH 31.5 H, MCHC 33.8, RDW 13.4, MPV 9.4, Gran % 77.2 H, Lymphocytes % 14.4 L, Monocytes % 4.9, Eosinophils % 3.1, Basophils % 0.4, Absolute Granulocytes 8.4 H, Absolute Lymphocytes 1.6, Absolute Monocytes 0.5, Absolute Eosinophils 0.3, Absolute Basophils 0 03/25/17 1357: ESR Westergren Cancelled 03/25/17 1314: ESR Westergren Cancelled Assessment/Plan Assessment/Plan The patient is stable from a cardiac standpoint. His blood pressure is maintained in the normal range on his current regimen. I would continue this. I recommend a follow-up basic metabolic profile as he did receive radiographic contrast yesterday and we should be tracking his renal function closely. Please call if further cardiac input is needed. Continue telemetry? Not applicable
[2017-03-27 14:08] VITALS: BP 100/60
--- NOTE | 2017-03-27 14:54 | PN- Infect Dx ---
Subjective Subjective: Afebrile. He has minimal discomfort in the right foot. Objective Last 24 Hrs of Vital Signs/I&O Vital Signs Date Time Temp Pulse Resp B/P B/P Pulse O2 O2 Flow FiO2 Mean Ox Delivery Rate 03/27 1408 98.2 86 20 100/60 94 Room Air 03/27 1023 98 138/72 03/27 1023 98 138/72 03/27 1023 98 138/72 03/27 0601 97.7 99 18 133/72 93 03/26 2255 98.2 73 22 134/62 94 Room Air 03/26 1456 98.4 88 18 132/80 94 Room Air Intake & Output 03/27 1600 03/27 0800 03/27 0000 Intake Total 120 120 Output Total 450 400 Balance -330 -280 Intake, Oral 120 120 Output, Urine 450 400 Patient 173 lb Weight Physical Exam Other Physical Findings: He appears comfortable in no acute distress Extremities right foot dressing intact, with blue discoloration of the right second toe; wound VAC in place on the right foot; PICC in the left upper extremity with no inflammation at the site Results Last 24 Hours of Lab Results: Laboratory Tests 03/26 1714 Toxicology Random Vancomycin (ug/ml) 7.9 Last 24 Hours of Fransisco Results: No new cultures Recent Imaging Studies: X-ray of the right foot March 25 status post resection of the first digit with no other findings noted Assessment/Plan Impression: Stable with temperatures and white blood cell count normal, status post revisional partial first ray resection of the right foot 3 days ago for osteomyelitis of the right great toe due to MRSA, for which he is on Vancomycin. His right second toe is now discolored secondary to ongoing ischemia and feel that he will require further amputation, possibly transmetatarsal or BKA. I have discussed with Vascular surgery who has no plans for further revascularization, and Podiatry. Suggestion: 1. Further management of his right foot per Podiatry and Vascular surgery 2. Increase Vancomycin to 1 g IV every 12 hours and recheck a Vancomycin trough level with his fifth dose
[2017-03-27] MEDS ORDERED: LEVEMIR100 UNIT/1 SC (15:13)
[2017-03-27] MEDS ORDERED: VANCOMYCIN HCL1 GM IV ×2 (15:21→15:23)
[2017-03-27 22:24] VITALS: BP 130/62
[2017-03-28 07:51] VITALS: BP 120/68
--- NOTE | 2017-03-28 11:07 | PN- Att Addend ---
Attending Addendum Attending Brief Note Patient seen and examined. Overall he feels well with minimal discomfort to his foot but he is concerned about the discoloration of the second toe. On exam his pressure is 120/80, pulse is 80, respiratory rate is 16, afebrile. Lungs are clear to auscultation, heart is S1-S2 regular, abdomen is soft. He has the wound VAC and he has the PICC line and he has the discoloration of the second toe. I had a long discussion later yesterday afternoon with Dr. Maurer who talked to the vascular surgeon and Dr. Moreno again. We are all very well aware that his arterial blood supply to his lower extremity is severely compromised and they did an SFA angioplasty but couldn't do a stent and he anatomy is not amenable to bypass. Right now he is on IV vancomycin for an MRSA osteomyelitis and on aspirin per vascular. Both Dr. Moreno and vascular feel that this second toe will declare itself fairly soon and he'll likely need an amputation either of the second toe and worse case a TMA. Patient is also aware of this. Right now we are watching the toe, no urgent vascular intervention and we are continuing the antibiotics and aspirin.
--- NOTE | 2017-03-28 12:48 | PN- Diabetes ---
Assessment/Plan Assessment: This patient has type 1 diabetes mellitus and presents with a cellulitis of the right foot and necrosis of the right great toe. The patient was transferred to the intensive care unit because of hypertension. He also went into congestive heart failure. He is now out on a regular floor. He had further surgery on his right foot yesterday. Patient is back on Levemir 12 units twice a day and sliding scale NovoLog before meals. Yesterday his blood sugars became very high. His sliding scale NovoLog before meals was increased. Today his sugar before breakfast was 193. The patient is concerned about his second toe next to the big toe which was amputated. It has turned black.The third toe on the right foot now also has discoloration at the base. Plan: Suggest continue the present insulin.Further adjustments in his regimen will be made after observing the sugars today. Further surgery on his right foot has been planned. Objective Last 24 Hrs of Vital Signs/I&O Vital Signs Date Time Temp Pulse Resp B/P B/P Pulse O2 O2 Flow FiO2 Mean Ox Delivery Rate 03/28 0830 98.1 68 20 120/68 02/03 0829 98.1 68 20 120/68 02/03 0829 98.1 68 20 120/68 02/03 0800 Nasal 1.0L Cannula 03/28 0751 98.1 68 20 120/68 96 Room Air 02/ 0000 97 Nasal 1.0L Cannula 03/27 2224 99.0 65 18 130/62 97 03/27 1408 98.2 86 20 100/60 94 Room Air Intake & Output / 1600 / 0800 02/03 0000 Intake Total 140 750 Output Total 400 100 Balance -260 650 Intake, IV 20 300 Intake, Oral 120 450 Number 1 Bowel Movements Output, Urine 400 100 Vital Signs Date Time Temp Pulse Resp B/P B/P Pulse O2 O2 Flow FiO2 Mean Ox Delivery Rate 03/28 0830 98.1 68 20 120/68 02/03 0829 98.1 68 20 120/68 / 0829 98.1 68 20 120/68 02/03 0800 Nasal 1.0L Cannula 03/28 0751 98.1 68 20 120/68 96 Room Air 02/03 0000 97 Nasal 1.0L Cannula 03/27 2224 99.0 65 18 130/62 97 02/02 1408 98.2 86 20 100/60 94 Room Air Intake & Output 03/28 1600 / 0800 03/28 0000 Intake Total 140 750 Output Total 400 100 Balance -260 650 Intake, IV 20 300 Intake, Oral 120 450 Number 1 Bowel Movements Output, Urine 400 100 Physical Exam General Appearance: alert, awake Head: normal appearance Neck: normal inspection Cardiovascular: regular rate/rhythm Abdomen: normal bowel sounds Extremities: right foot second and third toe turning blue
[2017-03-28 14:47] VITALS: BP 138/70
[2017-03-28 22:31] VITALS: BP 112/66
[2017-03-29 07:11] VITALS: BP 128/80
--- NOTE | 2017-03-29 11:05 | PN- Diabetes ---
Assessment/Plan Assessment: This patient has type 1 diabetes mellitus and presents with a cellulitis of the right foot and necrosis of the right great toe. The patient was transferred to the intensive care unit because of hypertension. He also went into congestive heart failure. He is now out on a regular floor. He had further surgery on his right foot yesterday. Patient is back on Levemir 12 units twice a day and sliding scale NovoLog before meals. Yesterday his blood sugars became very high. His sliding scale NovoLog before meals was increased. Today his sugar before breakfast was 96. The patient is concerned about his second toe next to the big toe which was amputated. It has turned black.The third toe on the right foot now also has discoloration at the base. Dr. Moreno has seen the patient again. He feels that he wishes to wait until there is some demarcation of the extent of surgery needed on the right foot before doing any further surgical procedures. Plan: Suggest continue this present insulin. Subjective Subjective: Wants to go home Review of Systems Constitutional: Denies: chills, fever. Cardiovascular: Denies: chest pain. Respiratory: Denies: cough, short of breath. Gastrointestinal: Denies: abdominal pain, nausea, vomiting. Objective Last 24 Hrs of Vital Signs/I&O Vital Signs Date Time Temp Pulse Resp B/P B/P Pulse O2 O2 Flow FiO2 Mean Ox Delivery Rate 03/29 0809 98.1 72 20 128/80 03/29 0808 98.1 72 20 128/80 03/29 0808 98.1 72 20 128/80 03/29 0711 98.1 72 20 128/80 96 Nasal 1.0L Cannula 03/29 0000 96 Nasal 1.0L Cannula 03/28 2231 98.2 65 18 112/66 91 02 1447 98.3 63 18 138/70 94 Nasal 1.0L Cannula Intake & Output 03/29 1600 03/29 0800 02 0000 Intake Total 140 540 Output Total 200 Balance -60 540 Intake, IV 20 300 Intake, Oral 120 240 Output, Urine 200 Vital Signs Date Time Temp Pulse Resp B/P B/P Pulse O2 O2 Flow FiO2 Mean Ox Delivery Rate 03/29 0809 98.1 72 20 128/80 03/29 0808 98.1 72 20 128/80 03/29 0808 98.1 72 20 128/80 02/04 0711 98.1 72 20 128/80 96 Nasal 1.0L Cannula 02/ 0000 96 Nasal 1.0L Cannula / 2231 98.2 65 18 112/66 91 02/03 1447 98.3 63 18 138/70 94 Nasal 1.0L Cannula Intake & Output 03/29 1600 03/29 0800 / 0000 Intake Total 140 540 Output Total 200 Balance -60 540 Intake, IV 20 300 Intake, Oral 120 240 Output, Urine 200 Physical Exam General Appearance: alert, awake, anxious Head: normal appearance Neck: normal inspection Respiratory: normal breath sounds Cardiovascular: regular rate/rhythm Abdomen: normal bowel sounds, soft Current Medications: Current Medications Sig/Coral Start time Last Medication Dose Route Stop Time Status Admin Acetaminophen 1,000 MG Q8P PRN 03/20 2345 AC 03/20 N/A 1 UNIT IV 2341 Acetaminophen 650 MG Q8P PRN 03/18 2145 AC PO Amlodipine Besylate 10 MG DAILY 03/22 1000 AC 03/29 PO 0808 Aspirin 81 MG DAILY 03/23 1503 AC 03/29 PO 0808 Atorvastatin Calcium 40 MG 1700 03/20 1700 AC 03/28 PO 1722 Benzonatate 100 MG TID 03/20 2200 AC 03/29 PO 0809 Insulin Aspart 0 TIDAC 03/26 1200 AC 03/29 SC 0807 Insulin Aspart 0 AT BEDTIME 03/25 2200 AC 03/26 SC 2144 Insulin Detemir 12 UNITS BID 03/27 2200 AC 03/29 SC 0812 Lactobacillus 1 CAP DAILY 03/22 1000 AC 03/29 Acidophilus PO 0809 Losartan Potassium 100 MG DAILY 03/19 1000 AC 03/29 PO 0808 Metoprolol Succinate 25 MG DAILY 03/19 1000 AC 03/29 PO 0809 Morphine Sulfate 2 MG Q4P PRN 03/20 2130 AC 03/29 IV 0345 Naphazoline HCl/ 1 GTT 4 TIMES/DAY 03/28 1400 AC 03/29 Pheniramine Maleate OPH 0809 Sodium Chloride 2 SPRAY Q4P PRN 03/22 0800 AC 03/25 THOMAS 0750 Vancomycin HCl 1,000 MG BID 03/27 2200 AC 03/29 Dextrose/Water 250 ML IV 1055 Findings Pertinent Lab/Fransisco Results: Laboratory Tests 03/28 2149 Toxicology Vancomycin Trough (10.0 - 20.0 ug/mL) 12.8
--- NOTE | 2017-03-29 11:21 | PN- Att Addend ---
Attending Addendum Attending Brief Note Patient seen and examined. Patient remains very concerned about the blackish discoloration of his second toe and now he feels with his third toe is getting a dusky discoloration. He is worried about the amputation issues. On exam his pressure is 128/80, pulse is 78, respiratory rate is 16, afebrile. Lungs are clear to auscultation, heart is S1-S2 regular, abdomen is soft. He has the wound VAC and he has the PICC line and he has the discoloration of the second toe and dusky appearance of the third toe. As per discussion with Dr. Maurer who talked to the vascular surgeon and Dr. Moreno on 03/27. We are all very well aware that his arterial blood supply to his lower extremity is severely compromised and they did an SFA angioplasty but couldn't do a stent and the anatomy is not amenable to bypass. Right now he is on IV vancomycin for an MRSA osteomyelitis and on aspirin per vascular. Both Dr. Moreno and vascular feel that this second toe will declare itself fairly soon and he'll likely need an amputation either of the second toe and worse case a TMA. Patient is also aware of this. Right now we are watching the toe, no urgent vascular intervention and we are continuing the antibiotics and aspirin. Given that he received contrast and he is on Vanco, cardiology is recommending that we follow his renal function closely. His Vanco is running right now and after that the nurse will draw his CBC and lites from the PICC line and will follow that.
[2017-03-29 13:47] VITALS: BP 140/90
[2017-03-29 13:54] LABS: ABSOLUTE BASOPHIL COUNT 0.1 /CUMM (0.0-0.2); ABSOLUTE EOSINOPHIL COUNT 0.3 /CUMM (0.0-0.7); ABSOLUTE GRANULOCYTE CT 9.6 /CUMM (1.4-6.5); ABSOLUTE LYMPH COUNT 1.2 /CUMM (1.2-3.4); ABSOLUTE MONOCYTE COUNT 0.7 /CUMM (0.10-0.60); BASOPHIL % 0.5 % (0.0-2.0); EOSINOPHIL % 2.2 % (0-5); GRANULOCYTE % 81.5 % (42.2-75.2); HEMATOCRIT 30.5 % (42-52); MEAN CORPUSCULAR HGB 30.2 PG (27.0-31.0); MEAN CORPUSCULAR HGB CONC 31.9 G/DL (33.0-37.0); MEAN CORPUSCULAR VOLUME 94.5 FL (80.0-94.0); MEAN PLATELET VOLUME 9.1 FL (7.4-10.4); PLATELET COUNT 512 /CUMM (130-400); RBC DISTRIBUTION WIDTH 13.1 % (11.5-14.5); RED BLOOD CELL CT 3.23 /CUMM (4.70-6.10); WHITE BLOOD CELL COUNT 11.8 /CUMM (4.8-10.8)
[2017-03-29 22:29] VITALS: BP 140/90
[2017-03-30 06:20] VITALS: BP 140/88
--- NOTE | 2017-03-30 08:20 | PN- Housestaff ---
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 Azevedo, that comes to us for right foot erythema, edema of 10 days duration with the development of eschar/dark blood underneath the skin for the past 1 day. The patient recently has had poor glucose control and has seen his primary care physician Estuardo Adame MD for better control. The patient also sees a cloth folder machine for his diabetic feet which have caused him balance issues in the recent years. The patient came here 5 days ago and was given Keflex and told to follow-up outpatient. However his skin issues have worsened since then. The patient also complains of one-month history of productive cough. In the ED the patient's vitals were temperature 97.5, heart rate 73, respiratory rate 16, blood pressure 125/53, 96% oxygen saturation on room air. Pertinent labs were sodium 144, potassium 4, creatinine 1.1, glucose 201, lactic acid 2.0, CRP greater than 9, WBC 14.7, hemoglobin 12.5. X-ray was done and showed no bony erosive or distractive changes. Tiny flecks of calcification in the soft tissue. No evidence of acute fracture. Venous Doppler showed no evidence of DVT. EKG was unchanged from March 2016 with a rate of 62 normal sinus rhythm deep S waves in V3. Patient was admitted to general medicine floors for evaluation and treatment of the following: #1 cellulitis/gangrene of right foot #2 uncontrolled diabetes mellitus #3 hypertension -HE WAS FOUND ON DUPLEX SCAN LOWER EXT TO HAVE NO FLOW IN HIS POSTERIOR TIBIAL ARTERIES AND HEAVILY CALCIFIED PLAQUE IN AORTA AND ILIAC VESSELS BUT NO FOCAL STENOSIS. 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 Vanco doses have been prescribed. Today, 03/27, Raymundo Maurer MD is suggesting to increase his vancomycin dose to 1 g IV twice a day and to recheck a vancomycin TROUGH level after his fifth dose. Patient will need a weekly CBC, ESR, BUN/creatinine and vancomycin trough level while on vancomycin. INSTRUCTIONS INCLUDED ON W10 AND DC SUMMARY. Patient's ESR when osteomyelitis was diagnosed was 90. PATIENT HAD WOUND CLOSURE/VAC with continued drainage of 100 mL of dark red fluid PATIENT IS CONTINUED ON ASA 81 Patient to follow up with Dr. Venegas outpatient and with Dr. Moreno at the wound center on Thursday 03/30 Right foot xray on 03/25 showed post operative changes and remainder of bony structures unchanged. Of note patient's second toe found to be purple yesterday and today increasingly black, evidence of gangrene in that toe as well. We spoke with Dr. Moreno who stated that he had no plans for amputation of this toe during this admission. He also spoke with vascular who showed us angiogram images in depth and stated that any intervention may actually do more harm then good in terms of wound healing and compromised circulation. The plan is to continue antibiotics, aspirin and statin and let the second and third toe necrotic areas demarcate themselves. Instructions for rehabilitation facility have been included in discharge summary. #2 Uncontrolled diabetes mellitus Patient found to have HbA1c of 10.5 on admission Estuardo Adame MD, his PCP and shooting gallery operator has been consulted We followed recommendations daily and have wrote discharge medications as specified in last note by Dr. Adaem Discharged with 12 units levemir bid with adjusted novolog sliding scale qac and a separate sliding scale qhs. #3 Hematuria LIKELY FROM TRAUMATIC LOPEZ. Patient not on AC OTHER THAN ASA. Urine culture negative. Lopez removed HEMATURIA RESOLVED #4 Guaic positive stools Patient has chronically low Hb secondary to GI bleed Hb since admission has decreased from 12.5 to 9.7 No abdominal pain on change in bowels We will refer patient to gastroenterology outpatient - Dr. Tran #5 Disposition PT is suggesting STR Case management to help with placement tomorrow Patient has required O2 on and off during this admission. We did an oxygen level on RA and found it to be 95%. Stable for DC without O2. #6 Hypertension Patient is continued on metoprolol, losartan, and amlodipine 5mg to be prescribed at discharge. Patient already sees Dr. Avery and will follow up with him outpatient. DNR DNI CC DIET Consulting Request: Consulting Specialty: Infectious Disease Consulting Physician: Reason for Consult: MRSA osteomyelitis Jeff Haas 03/30/17 1342: Attending MD Review Statement Attending Statement Attending MD Statement: examined this patient, discuss w/resident/PA/WAFER LINE WORKER, agreed w/resident/PA/WAFER LINE WORKER, discussed with family, reviewed EMR data (avail), discussed with nursing, discussed with case mgmt, reviewed images, amended to note Attending Assessment/Plan: Patient seen/examined bedside. Patient is admitted for Severe PVD with gangrene and osteomyelitis s/p amputation of the first toe and partial 1st ray resection rt foot. Osteomyelitis: Foot (piece of bone)culture growing MRSA iv vancomycin, ID consulted for Abx, PICC line as per ID. Continue ASA as per Vascular surgery. Weekend events notes with development of bluish discoloration of second and third toe. Vascular surgery and Podaitry reconsulted over weekend, patient anatomy is not amenable for bypass and not good candidate for femoral stent. Patient did have atherectomy and angioplasty. Plan will be discharge to [facility]. Follow vascular surgery, podiatry and infectious disease recommendations. Case management aware. Continue post operative care, encourage incentive spirometry. Titrate oxygen. Podiatry planned outpatient follow up on Thursday for possible amputation vs autoampuatation of toes. Unfortunately patient is poor anatomy and not accessible to surgical intervention as per vascular surgery. Plan of care discussed with patient bedside who agrees to management and also updated son who wished that his " my father not cut piece by piece" and he discussed it with podiatry. FOLLOW UP VASCULAR SURGERY in [address] Bean on Thursday Dr Adame as PCP and diabetes.
--- NOTE | 2017-03-30 09:21 | PN- Diabetes ---
Assessment/Plan Assessment: This patient has type 1 diabetes mellitus and presents with a cellulitis of the right foot and necrosis of the right great toe. The patient was transferred to the intensive care unit because of hypertension. He also went into congestive heart failure. He is now out on a regular floor. He had further surgery on his right foot yesterday. Patient is back on Levemir 12 units twice a day and sliding scale NovoLog before meals. Yesterday the patient's blood sugars were becoming low. They were 96 before breakfast 90 before lunch, 95 before dinner, and 147 at bedtime. This morning his fingerstick blood sugar is 85. The patient is concerned about his second toe next to the big toe which was amputated. It has turned black.The third toe on the right foot now also has discoloration at the base. Dr. Moreno has seen the patient again. He feels that he wishes to wait until there is some demarcation of the extent of surgery needed on the right foot before doing any further surgical procedures. Plan: The patient's blood sugars are becoming low. Suggest reduce the patient's Levemir to 10 units twice a day. We will also adjust patient's sliding scale before meals. Sliding scale NovoLog before meals should be 80-150 give 3 units NovoLog, 151-200 give 5 units NovoLog , 201-250 give 6 units NovoLog to 251 -300 give 7 units NovoLog, 301-350 give 8 units NovoLog, 351-400 give 9 units NovoLog. Objective Last 24 Hrs of Vital Signs/I&O Vital Signs Date Time Temp Pulse Resp B/P B/P Pulse O2 O2 Flow FiO2 Mean Ox Delivery Rate 03/30 799 99 Nasal 2.0L Cannula 03/30 0620 98.5 67 24 140/88 96 Nasal Cannula 03/30 0000 Nasal 1.0L Cannula 03/29 2229 99.0 65 20 140/90 94 Nasal 1.0L Cannula 03/29 1600 94 Nasal 1.0L Cannula 03/29 1347 97.8 63 20 140/90 94 Nasal 2.0L Cannula Intake & Output 03/30 1600 03/30 0800 03/30 0000 Intake Total 100 600 Output Total 400 Balance -300 600 Intake, IV 400 Intake, Oral 100 200 Number 0 Bowel Movements Output, Urine 400 Patient 174 lb Weight Weight Bed scale Measurement Method Vital Signs Date Time Temp Pulse Resp B/P B/P Pulse O2 O2 Flow FiO2 Mean Ox Delivery Rate 03/30 08 99 Nasal 2.0L Cannula 03/30 0620 98.5 67 24 140/88 96 Nasal Cannula 03/30 0000 Nasal 1.0L Cannula 03/29 2229 99.0 65 20 140/90 94 Nasal 1.0L Cannula 03/29 1600 94 Nasal 1.0L Cannula 03/29 1347 97.8 63 20 140/90 94 Nasal 2.0L Cannula Intake & Output 03/30 1600 03/30 0800 03/30 0000 Intake Total 100 600 Output Total 400 Balance -300 600 Intake, IV 400 Intake, Oral 100 200 Number 0 Bowel Movements Output, Urine 400 Patient 174 lb Weight Weight Bed scale Measurement Method Current Medications: Current Medications Sig/Coral Start time Last Medication Dose Route Stop Time Status Admin Acetaminophen 1,000 MG .STK-MED ONE 03/29 181 DC IV 03/29 181 Acetaminophen 1,000 MG Q8P PRN 03/20 2345 AC 03/29 N/A 1 UNIT IV 1823 Acetaminophen 650 MG Q8P PRN 03/18 2145 AC PO Amlodipine Besylate 10 MG DAILY 03/22 1000 AC 03/29 PO 0808 Aspirin 81 MG DAILY 03/23 1503 AC 03/29 PO 0808 Atorvastatin Calcium 40 MG 1700 03/20 1700 AC 03/29 PO 1719 Benzonatate 100 MG TID 03/20 2200 AC 03/29 PO 2104 Insulin Aspart 0 TIDAC 03/26 1200 AC 03/29 SC 1719 Insulin Aspart 0 AT BEDTIME 03/25 2200 AC 03/26 SC 2144 Insulin Detemir 12 UNITS BID 03/27 2200 AC 03/29 SC 2103 Lactobacillus 1 CAP DAILY 03/22 1000 AC 03/29 Acidophilus PO 0809 Losartan Potassium 100 MG DAILY 03/19 1000 AC 03/29 PO 0808 Metoprolol Succinate 25 MG DAILY 03/19 1000 AC 03/29 PO 0809 Morphine Sulfate 2 MG Q4P PRN 03/20 2130 AC 03/29 IV 1720 Naphazoline HCl/ 1 GTT 4 TIMES/DAY 03/28 1400 AC 03/29 Pheniramine Maleate OPH 2104 Sodium Chloride 2 SPRAY Q4P PRN 03/22 0800 AC 03/25 THOMAS 0750 Vancomycin HCl 1,000 MG BID 03/27 2200 AC 03/29 Dextrose/Water 250 ML IV 2103 Findings Pertinent Lab/[place] Results: Laboratory Tests 03/30 03/29 0615 1235 Chemistry Sodium (137 - 145 mmol/L) Pending 140 Potassium (3.5 - 5.1 mmol/L) Pending 4.1 Chloride (98 - 107 mmol/L) Pending 99 Carbon Dioxide (22 - 30 mmol/L) Pending 30 Anion Gap (5 - 16) Pending 11 BUN (9 - 20 mg/dL) Pending 23 H Creatinine (0.7 - 1.2 mg/dL) Pending 1.0 Estimated GFR (>60 ml/min) > 60 BUN/Creatinine Ratio (7 - 25 %) Pending 23.0 Hematology CBC w Diff Pending NO MAN DIFF REQ WBC (4.8 - 10.8 /CUMM) Pending 11.8 H RBC (4.70 - 6.10 /CUMM) Pending 3.23 L Hgb (14.0 - 18.0 G/DL) Pending 9.8 L Hct (42 - 52 %) Pending 30.5 L MCV (80.0 - 94.0 FL) Pending 94.5 H MCH (27.0 - 31.0 PG) Pending 30.2 MCHC (33.0 - 37.0 G/DL) Pending 31.9 L RDW (11.5 - 14.5 %) Pending 13.1 Plt Count (130 - 400 /CUMM) Pending 512 H MPV (7.4 - 10.4 FL) Pending 9.1 Gran % (42.2 - 75.2 %) 81.5 H Lymphocytes % (20.5 - 51.1 %) 9.9 L Monocytes % (1.7 - 9.3 %) 5.9 Eosinophils % (0 - 5 %) 2.2 Basophils % (0.0 - 2.0 %) 0.5 Absolute Granulocytes (1.4 - 6.5 /CUMM) 9.6 H Absolute Lymphocytes (1.2 - 3.4 /CUMM) 1.2 Absolute Monocytes (0.10 - 0.60 /CUMM) 0.7 H Absolute Eosinophils (0.0 - 0.7 /CUMM) 0.3 Absolute Basophils (0.0 - 0.2 /CUMM) 0.1
[2017-03-30 10:25] LABS: ABSOLUTE BASOPHIL COUNT 0 /CUMM (0.0-0.2); ABSOLUTE EOSINOPHIL COUNT 0.2 /CUMM (0.0-0.7); ABSOLUTE GRANULOCYTE CT 8.5 /CUMM (1.4-6.5); ABSOLUTE MONOCYTE COUNT 0.5 /CUMM (0.10-0.60); BASOPHIL % 0.3 % (0.0-2.0); GRANULOCYTE % 82.9 % (42.2-75.2); HEMATOCRIT 29.6 % (42-52); MEAN CORPUSCULAR HGB 31.4 PG (27.0-31.0); MEAN CORPUSCULAR HGB CONC 33.4 G/DL (33.0-37.0); MEAN CORPUSCULAR VOLUME 93.8 FL (80.0-94.0); MEAN PLATELET VOLUME 9.2 FL (7.4-10.4); PLATELET COUNT 458 /CUMM (130-400); RBC DISTRIBUTION WIDTH 13.3 % (11.5-14.5); RED BLOOD CELL CT 3.16 /CUMM (4.70-6.10); WHITE BLOOD CELL COUNT 10.2 /CUMM (4.8-10.8)
[2017-03-30] MEDS ORDERED: NOVOLOG100 UNIT/2 SC (14:16)
[2017-03-30] MEDS ORDERED: LEVEMIR100 UNIT/1 SC (14:16)
[2017-03-30] MEDS ORDERED: LIPITOR40 M1 PO (14:19)
[2017-03-30 14:37] VITALS: BP 144/90
--- NOTE | 2017-03-30 14:47 | PN- Vascular Surgery ---
Subjective Subjective: pt in bed. no co of right foot pain Objective Vital Signs and I&Os Vital Signs Date Time Temp Pulse Resp B/P B/P Pulse O2 O2 Flow FiO2 Mean Ox Delivery Rate 03/30 1437 98.8 72 20 144/90 93 03/30 1009 67 140/88 03/30 1008 67 140/88 03/30 1008 67 140/88 03/30 0800 99 Nasal 2.0L Cannula 03/30 0620 98.5 67 24 140/88 96 Nasal Cannula 03/30 0000 Nasal 1.0L Cannula 03/29 2229 99.0 65 20 140/90 94 Nasal 1.0L Cannula 03/29 1600 94 Nasal 1.0L Cannula Intake & Output 03/30 1600 03/30 0800 03/30 0000 03/29 1600 03/29 0803/29 0000 Intake Total 100 600 800 140 540 Output Total 400 600 200 Balance -300 600 200 -60 540 Intake, IV 400 20 300 Intake, Oral 100 200 800 120 240 Number 0 1 Bowel Movements Output, Urine 400 600 200 Patient 174 lb Weight Weight Bed scale Measurement Method Physical Exam: wound wav on right foot, serosang drainage in canister foot is warm, able to move ankle. 2nd toe is dry and black. clean dry dressing in place Assessment/Plan Assessment/Plan 71yo M SP R SFA angiogram/plasty with L groin access, with significant PAD. Unfortunately patient is not a candidate for further surgical intervention or revascularization at this time PLAN FOR DC TO STR TODAY CONT WOUND VAC ON RIGHT FOOT FOLLOW-UP WITH dR. ANGUIANO AT [facility] ASA 81mg daily ABX per ID MAINTAIN TIGHT CONTROL OF BLOOD GLUCOSE LEVELS FU with Dr. Venegas Core Measures Venous Thromboembolism VTE Risk Factors Acute Medical Illness No Mechanical VTE Prophylaxis d/t N/A MechProphylax Ordered No VTE Pharm Prophylaxis d/t NA PharmProphylax ordered
--- NOTE | 2017-03-30 15:09 | PN- Infect Dx ---
Subjective Subjective: Afebrile. He complains of congestion and irritation from the nasal cannula. Objective Last 24 Hrs of Vital Signs/I&O Vital Signs Date Time Temp Pulse Resp B/P B/P Pulse O2 O2 Flow FiO2 Mean Ox Delivery Rate 03/30 1437 98.8 72 20 144/90 93 / 1009 67 140/88 03/30 1008 67 140/88 03/30 1008 67 140/88 03/30 0800 99 Nasal 2.0L Cannula 03/30 0620 98.5 67 24 140/88 96 Nasal Cannula 03/30 0000 Nasal 1.0L Cannula 03/29 2229 99.0 65 20 140/90 94 Nasal 1.0L Cannula 03/29 1600 94 Nasal 1.0L Cannula Intake & Output 03/30 1600 03/30 0800 03/30 0000 Intake Total 100 600 Output Total 400 Balance -300 600 Intake, IV 400 Intake, Oral 100 200 Number 0 Bowel Movements Output, Urine 400 Patient 174 lb Weight Weight Bed scale Measurement Method Physical Exam Other Physical Findings: He appears uncomfortable in no acute distress Lungs are clear Heart regular rhythm with no murmur Extremities right foot wound VAC in place, with bluish discoloration of the right second and third toes Results Last 24 Hours of Lab Results: Laboratory Tests 03/30 614 Chemistry Sodium (137 - 145 mmol/L) 139 Potassium (3.5 - 5.1 mmol/L) 4.3 Chloride (98 - 107 mmol/L) 98 Carbon Dioxide (22 - 30 mmol/L) 31 H Anion Gap (5 - 16) 9 BUN (9 - 20 mg/dL) 22 H Creatinine (0.7 - 1.2 mg/dL) 1.1 Estimated GFR (>60 ml/min) > 60 BUN/Creatinine Ratio (7 - 25 %) 20.0 Hematology CBC w Diff NO MAN DIFF REQ WBC (4.8 - 10.8 /CUMM) 10.2 RBC (4.70 - 6.10 /CUMM) 3.16 L Hgb (14.0 - 18.0 G/DL) 9.9 L Hct (42 - 52 %) 29.6 L MCV (80.0 - 94.0 FL) 93.8 MCH (27.0 - 31.0 PG) 31.4 H MCHC (33.0 - 37.0 G/DL) 33.4 RDW (11.5 - 14.5 %) 13.3 Plt Count (130 - 400 /CUMM) 458 H MPV (7.4 - 10.4 FL) 9.2 Gran % (42.2 - 75.2 %) 82.9 H Lymphocytes % (20.5 - 51.1 %) 9.6 L Monocytes % (1.7 - 9.3 %) 5.2 Eosinophils % (0 - 5 %) 2.0 Basophils % (0.0 - 2.0 %) 0.3 Absolute Granulocytes (1.4 - 6.5 /CUMM) 8.5 H Absolute Lymphocytes (1.2 - 3.4 /CUMM) 1.0 L Absolute Monocytes (0.10 - 0.60 /CUMM) 0.5 Absolute Eosinophils (0.0 - 0.7 /CUMM) 0.2 Absolute Basophils (0.0 - 0.2 /CUMM) 0 Last 24 Hours of [place] Results: No new cultures Assessment/Plan Impression: Worsening ischemia of the right foot, now with development of gangrene of both the second and third toes, which will require amputation. The timing of this has not been determined, with no plans by Podiatry or Vascular surgery for any immediate intervention. He remains afebrile with a normal white blood cell count on Vancomycin, now 6 days status post revisional partial first ray resection of the right foot for osteomyelitis of the right great toe due to MRSA. Given his poor blood supply it is not clear how effective Vancomycin will be and suspect he will ultimately require a transmetatarsal or BKA. His Vancomycin trough level from March 28 is of unclear value as his regimen had been recently changed; therefore it will need to be repeated. Suggestion: 1. Further management of his right foot per Podiatry and Vascular surgery 2. Repeat Vancomycin trough level with his next dose 3. Continue Vancomycin to plan on a 4 week course from his most recent debridement (until April 21) 4. Will need a weekly CBC, ESR, BUN/creatinine and Vancomycin trough level while on Vancomycin
[2017-03-30 16:34] VITALS: BP 128/68
--- NOTE | 2017-03-30 18:25 | RADIOLOGY REPORT ---
EXAMINATION: CR PORTABLE CHEST CLINICAL INFORMATION: Dyspnea. Presumptive diagnosis of atelectasis. COMPARISON: Several prior chest x-rays, most recent of which is dated 03/24/2017. TECHNIQUE: Portable AP semierect view of the chest was obtained. FINDINGS: Right atrial and right ventricular pacer leads unchanged. Left PICC line catheter tip at the cavoatrial junction. Cardiomediastinal silhouette borderline enlarged. Increased density in the left lung base again seen, most likely due to small effusion and associated atelectasis or focal consolidation. There is minimal linear atelectatic change also seen in the right lung base with no definite right-sided effusion noted. No pneumothorax. Osteopenia is suggested. IMPRESSION: 1. No change in positioning of left sided PICC line or the right atrial and right ventricular pacer leads. 2. No significant change in small left-sided pleural effusion and associated left basilar atelectasis or consolidation.
== END 2017-03-30 17:00 | DRG 271 ==
LOC: ERH 11:52 → CRI 15:09 → 2NB 15:09 → ERHI 15:09 → 2NA 15:09 → ENRESERV 20:51 → ENTRNSPT 22:34 → 2NB 22:49 → CMPTRNSPT 03-19 07:44 → 2NB 03-19 08:27 → CRI 03-19 12:55 → 2NA 03-21 16:24 → ENTRNSPT 03-21 16:24 → EDTRNSPTSTS 03-21 16:51 → CMPTRNSPT 03-21 17:42 → 2NA 03-22 07:31 → ENTRNSPT 03-23 13:54 → EDTRNSPT 03-23 13:59 → EDTRNSPTSTS 03-23 13:59 → CMPTRNSPT 03-23 14:24 → ENTRNSPT 03-24 13:12 → CMPTRNSPT 03-24 13:32 → 2NA 03-26 08:03 → ENPENDDIS 03-30 16:12 → 2NA 03-30 17:00
PROVIDERS: Internal Medicine; Internal Medicine Critical Care Medicine; Physician Assistant Medical; Student in an Organized Health Care Education/Training Program
PROC: 0Y6M0Z9 Detachment at Right Foot, Partial 1st Ray, Open Approach (ICD-10-PCS; 2017-03-20)
PROC: 04CK3ZZ Extirpation of Matter from Right Femoral Artery, Percutaneous Approach (ICD-10-PCS; principal; 2017-03-23)
PROC: 047K3ZZ Dilation of Right Femoral Artery, Percutaneous Approach (ICD-10-PCS; 2017-03-23)
PROC: B41FYZZ Fluoroscopy of Right Lower Extremity Arteries using Other Contrast (ICD-10-PCS; 2017-03-23)
PROC: 0QBN0ZZ Excision of Right Metatarsal, Open Approach (ICD-10-PCS; 2017-03-24)
PROC: 02HV33Z Insertion of Infusion Device into Superior Vena Cava, Percutaneous Approach (ICD-10-PCS; 2017-03-24)
DX: E10.52 Type 1 diabetes mellitus with diabetic peripheral angiopathy with gangrene (principal); E10.40 Type 1 diabetes mellitus with diabetic neuropathy, unspecified; E10.69 Type 1 diabetes mellitus with other specified complication; I70.263 Atherosclerosis of native arteries of extremities with gangrene, bilateral legs; E10.65 Type 1 diabetes mellitus with hyperglycemia; I44.1 Atrioventricular block, second degree; L03.115 Cellulitis of right lower limb; N39.0 Urinary tract infection, site not specified; M86.8X7 Other osteomyelitis, ankle and foot; E10.319 Type 1 diabetes mellitus with unspecified diabetic retinopathy without macular edema; D63.8 Anemia in other chronic diseases classified elsewhere; Z79.4 Long term (current) use of insulin; Z96.41 Presence of insulin pump (external) (internal); Z95.0 Presence of cardiac pacemaker; I16.0 Hypertensive urgency; R41.0 Disorientation, unspecified; B95.62 Methicillin resistant Staphylococcus aureus infection as the cause of diseases classified elsewhere; I25.2 Old myocardial infarction; Z87.891 Personal history of nicotine dependence; E78.5 Hyperlipidemia, unspecified; Z66 Do not resuscitate; I10 Essential (primary) hypertension
CPT/HCPCS: 2NAP; 2NBSP; 87070; 87075; 87184; CCU; 36415; 71045; 73552; 73630-LT; 73630-RT; 81001; 82436; 87040; 87086; 87147; 87804; 87804-59; 88305; 93005; 93010; 93925; 96374; 97110-GO; 97161-GP; 97530-GO; C1724; C1725; C1760; C1769; J0131; J0360; J1644; J1815; J1940; J2001; J3370; J3490; J7042; J7060; Q9967

== ENCOUNTER 2017-04-03 06:33 | Inpatient (IN) | payer OTHER ==
[~2017-04-03] VITALS: Ht 182.9 cm; Wt 62.6 kg
[~2017-04-03 06:33] MED LIST changes: +AMLODIPINE BESY10 M1 PO; +ATORVASTATIN CA40 M1 PO; +COZAAR100 M1 PO; +FLONASE SENSIM9.9 ML NS; +LIPITOR40 M1 PO; +LYRICA50 M1 PO; +NORVASC2.5 M1 PO; +TOPROL XL25 M2 PO; +TYLENOL EXTRA500 M2 PO; +VANCOMYCIN HCL1 GM IV; +VANCOMYCIN1.5 GM/251 IV
--- NOTE | 2017-04-03 06:38 | ED MVC/FALL/TRAUMA COMPLAINT ---
See Addendum History of Present Illness General Chief Complaint: Fall Stated Complaint: FALL Source: patient Exam Limitations: no limitations Vital Signs & Intake/Output Vital Signs & Intake/Output . Allergies Coded Allergies: NO KNOWN ALLERGIES (12/07/15) Reconcile Medications Acetaminophen (Tylenol Extra Strength) 500 MG TABLET 1 TAB PO TID right foot pain Amlodipine Besylate 10 MG TABLET 1 TAB PO DAILY high blood pressure Aspirin (Children's Aspirin) 81 MG TAB.CHEW 1 TAB PO DAILY HEART HEALTH ( Reported) Atorvastatin Calcium (Lipitor) 40 MG TABLET 1 TAB PO DAILY HLD Fluticasone Furoate (Flonase Sensimist) 27.5 MCG/ACTUATION SPRAY.SUSP 2 PUF NS DAILY ALLERGY (Reported) Insulin Aspart (Novolog) 100 UNIT/ML VIAL 0 SC QHS DIABETES LESS THAN GLUCOSE 250, GIVE NO INSULIN 251-300 GIVE 2 UNITS 301-350 GIVE 3 UNITS 351-400 GIVE 4 UNITS Insulin Aspart (Novolog) 100 UNIT/ML VIAL 0 SC TIDAC DIABETES GLUCOSE LESS THAN 80 GIVE NO INSULIN GLUCOSE 80-150 GIVE 3 UNITS 151-200 GIVE 5 UNITS 201-250 GIVE 6 UNITS 251-300 GIVE 7 UNITS 301-350 GIVE 8 UNITS 351-400 GIVE 9 UNITS greater than 400 give 9 units and CALL Insulin Detemir (Levemir) 100 UNIT/ML VIAL 10 UNITS SC BID DIABETES Losartan (Cozaar) 100 MG TABLET 1 TAB PO DAILY HYPERTENSION (Reported) Metoprolol Succ XL (Toprol XL) 25 MG TAB 1 TAB PO DAILY HYPERTENSION ( Reported) Pregabalin (Lyrica) 50 MG CAPSULE 1 CAP PO TID NEUROPATHY (Reported) Vancomycin HCl 1 GRAM VIAL.PORT 1 VIAL IV BID OSTEOMYELITIS GIVE UNTIL March. Triage Nurses Notes Reviewed? yes Onset: Abrupt Duration: UNKNOWN Timing: single episode today Severity: moderate Injuries/Fall Location: head, upper extremity, lower extremity Method of Injury: fall Loss of Consciousness: unsure Modifying Factors: Improves With: rest. Worsens With: movement, palpation. Associated Symptoms: HEAD INJURY, SKIN TEARS ON RIGHT ARM, RIGHT KNEE. HPI: 71 yo gentleman, from [facility], h/o diabetes, osteomyelitis w/ picc, h/o right great toe amputation in 03/24/17, w/ angioplasty of right femoral artery 03/26/17, presents after a presumed fall. He presents after being found no the ground next to his bed. He does not recall the event. The nurses found him with ecchymosis on his forehead, skin tears on his right forearm and wrist. He does not recall if he lost consciousness. He denies pain. He is otherwise well. (Jaret LOZANO,Krzysztof Winter) Past History Travel History Traveled to [place] past 21 day No Medical History Any Pertinent Medical History? 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 No (Jaret LOZANO,Krzysztof Winter) Review of Systems Review of Systems Constitutional: Reports: no symptoms. Eyes: Reports: no symptoms. Ears, Nose, Throat, Mouth: Reports: no symptoms. Respiratory: Reports: no symptoms. Cardiovascular: Reports: no symptoms. Gastrointestinal/Abdominal: Reports: no symptoms. Genitourinary: Reports: no symptoms. Musculoskeletal: Reports: no symptoms. Skin: Reports: no symptoms. Neurological/Psychological: Reports: no symptoms. All Other Systems: Reviewed and Negative (Jaret LOZANO,Krzysztof Winter) Physical Exam Physical Exam General Appearance: well developed/nourished, mild distress Head: ecchymosis on right forehead, no focal bony tenderness. Eyes: Bilateral: normal appearance, PERRL, EOMI. Ears, Nose, Throat, Mouth: hearing grossly normal, moist mucous membrane Neck: normal inspection, supple, full range of motion, normal alignment Respiratory: normal breath sounds, chest non-tender, no respiratory distress, quiet respiration, lungs clear Cardiovascular: regular rate/rhythm Gastrointestinal: normal bowel sounds, soft, non-tender, no organomegaly Extremities: right forearm/wrist with 2 skin tears, mild ecchymosis and swelling of right wrist. , right knee with skin tear, no significant effusion or bony tenderness. , right foot w/ wood vac on great toe. necrotic 2nd and 3rd toes. Neurologic/Psych: no motor/sensory deficits, awake, alert, slightly lethargic Skin: intact, normal color, warm/dry Core Measures ACS in differential dx? No CVA/TIA Diagnosis No Sepsis Present: No Sepsis Focused Exam Completed? No (Jaret LOZANO,Krzysztof Winter) Progress Differential Diagnosis: C/T/L spine injury, ext injury, ICH, fx vs contusion vs ich vs other. Plan of Care: Orders Procedure Date/time Status Heart Healthy Diet 04/03 Active ED Holding Orders 04/03 944 Active Admit to inpatient 04/03 944 Active Vital Signs 04/03 944 Active Code Status 04/03 944 Active TROPONIN LEVEL 04/03 649 Complete LIPASE 04/03 649 Complete HEPATIC FUNCTION PANEL 04/03 649 Complete CBC WITHOUT DIFFERENTIAL 04/03 649 Complete BASIC METABOLIC PANEL 04/03 649 Complete AMYLASE 04/03 649 Complete EKG 04/03 649 Active Laboratory Tests 04/03/17 0845: Anion Gap 15, Estimated GFR 38 L, BUN/Creatinine Ratio 18.3, Glucose 265 H, Calcium 8.1 L, Total Bilirubin 0.4, Direct Bilirubin 0.3, AST 56, ALT 42, Alkaline Phosphatase 72, Troponin I 0.44 *H, Total Protein 5.5 L, Albumin 2.6 L, Amylase 35, Lipase 26, CBC w Diff MAN DIFF ORDERED, RBC 2.86 L, MCV 92.2, MCH 30.5, MCHC 33.1, RDW 13.4, MPV 8.1, Gran % 93.2 H, Lymphocytes % 2.5 L, Monocytes % 4.0, Eosinophils % 0, Basophils % 0.3, Absolute Granulocytes 16.1 H , Segmented Neutrophils 86 H, Band Neutrophils 6 H, Absolute Lymphocytes 0.4 L, Lymphocytes 4 L, Monocytes 4, Absolute Monocytes 0.7 H, Absolute Eosinophils 0, Absolute Basophils 0.1, Platelet Estimate VERIFIED BY SMEAR, Normocytic RBCs VERIFIED, Normochromic RBCs VERIFIED Diagnostic Imaging: Viewed by Me: Radiology Read, CT Scan. Discussed w/RAD: Radiology Read, CT Scan. Hand-Off Endorsed To: Jonathan Vela DO Endorsed Time: 0700 Pending: CT, EKG, labs, Xray (Krzysztof Raygoza MD) Departure Departure Disposition: STILL A PATIENT Condition: Stable Clinical Impression Primary Impression: Fall Referrals: Deep LOZANO,Estuardo Gómez Departure Forms: Customer Survey General Discharge Information (Jaret LOZANO,Krzysztof Winter) Departure Comments 04/03/17 8 AM The patient was signed out to me by Dr. Raygoza. He status post fall. He is pending imaging results. Admission Note Spoke With: Samina LOZANO,Jeff Documentation of Exam: Documentation of any treatments & extenuating circumstances including Concerns Regarding Discharge (functional status, medication knowledge or non-compliance, living conditions, etc.) that warrant an admission rather than observation: [The patient needs admission for serial troponins, cardiology consultation, vascular surgery consult, podiatry consult. He will also need an endocrinology consult as he has an insulin pump.] (Jonathan Vela DO)
--- NOTE | 2017-04-03 07:57 | CT SCAN REPORT ---
CT HEAD WITHOUT IV CONTRAST CT CERVICAL SPINE WITHOUT IV CONTRAST INDICATION: Fall/trauma. COMPARISON: Head CT 03/19/2017. TECHNIQUE: Multidetector CT acquisitions of the head and cervical spine were obtained without IV contrast. Multiplanar reformats were acquired and utilized for image interpretation. FINDINGS: HEAD: Redemonstrated chronic right cerebellar infarct. Calcification within cerebellar hemispheres again noted. Calcification along the tentorial leaflets and falx cerebri. There is global cerebral volume loss. Hyperdense streak artifact along the posterior left parietal convexity on image 44 of series 2. There is no intracranial hemorrhage, hydrocephalus, extra-axial surface collection, midline shift, or other herniation pattern. Jernigan to white matter differentiation is diffusely maintained without evidence of an evolved acute territorial infarct. The basilar cisterns are preserved. No significant soft tissue abnormality. No acute osseous abnormality. The paranasal sinuses and the mastoid air cells are well-aerated. CERVICAL SPINE: There are hypertrophic degenerative changes at the atlantodental interval. Slight degenerative anterolisthesis of C3 on C4 and C4 on C5. Prominent anterior endplate osteophytes at the C4-C7 levels. There is anatomic alignment of the vertebral bodies and posterior elements. There is no acute fracture and there is no acute subluxation. The craniocervical and atlantoaxial articulations are normal. There is no prevertebral soft tissue swelling. No significant soft tissue abnormality within the neck. Partially imaged interlobular septal thickening, groundglass opacities, and consolidative opacities within the right and left upper lobes along with bilateral pleural effusions, concerning for congestive heart failure with pulmonary interstitial/alveolar edema appear IMPRESSION: 1. No acute intracranial abnormality. Global cerebral volume loss and a chronic right cerebellar infarct. 2. No acute osseous abnormality within the cervical spine. Cervical spondylosis. 3. Partially imaged interlobular septal thickening, groundglass opacities, and consolidative opacities within the right and left upper lobes along with bilateral pleural effusions, concerning for congestive heart failure with pulmonary interstitial/alveolar edema.
--- NOTE | 2017-04-03 08:30 | CT SCAN REPORT ---
EXAMINATION: CT CHEST ABDOMEN AND PELVIS WITHOUT CONTRAST CLINICAL INFORMATION: Fall, trauma COMPARISON: CTA abdomen and pelvis with runoff from 03/19/2017, CT chest from 03/13/2017 TECHNIQUE: Multidetector volumetric imaging was performed from the thoracic inlet through the pubic symphysis. Sagittal and coronal reformatted images were obtained on the technologist's workstation. DLP: 989 mGy-cm FINDINGS: LIMITATIONS: Assessment for acute traumatic injury is markedly limited without intravenous contrast, particularly the vascular structures and solid viscera. CHEST LUNGS: Passive atelectasis of the bilateral lower lobes. Extensive multifocal groundglass opacities. Interlobular septal thickening noted at the apices. MEDIASTINUM: There is a dual-chamber pacemaker with leads in similar configuration in the right atrium and right ventricle. Unchanged mild cardiomegaly. No pericardial effusion. Coronary artery and mitral calcifications again noted. There is no definite mediastinal hematoma. The thoracic aorta is normal in caliber. However, evaluation for subtle aortic injury is limited. Multiple prominent mediastinal lymph nodes are grossly unchanged. A right arm PICC terminates in the distal SVC. PLEURA: Moderate bilateral pleural effusions, low density. No evidence of pneumothorax. AXILLA: No lymphadenopathy. CHEST WALL: Mild body wall edema. ABDOMEN LIVER, GALLBLADDER, AND BILIARY TREE: The noncontrast liver is normal in size, shape, and attenuation. No biliary ductal dilatation is present. The gallbladder is unremarkable with no evidence of radiopaque gallstones, gallbladder wall thickening, or obvious pericholecystic inflammatory changes. PANCREAS: Unremarkable. SPLEEN: Unremarkable. ADRENAL GLANDS: Unremarkable. KIDNEYS AND URETERS: Mild bilateral perinephric stranding similar compared to prior CT. The kidneys are otherwise unremarkable without hydronephrosis or contour abnormality. Multiple renal calcifications likely a combination of vascular calcifications or nephrolithiasis. No evidence of hydroureter. BLADDER: There is gas in the lumen of the bladder, presumably due to recent instrumentation. GASTROINTESTINAL TRACT: The stomach and small bowel are nondilated. No definite focal colonic wall thickening or pericolonic inflammation. Moderate colonic stool burden with rectal distention to 6.5 cm in transverse diameter. The appendix is unremarkable. Mild mesenteric stranding which is nonfocal. No definite free fluid. No pneumoperitoneum. ABDOMINAL WALL: No significant hernia is appreciated. Diffuse body wall edema. LYMPH NODES: No evidence of mesenteric or retroperitoneal lymphadenopathy. VASCULAR: Extensive arterial calcifications. The abdominal aorta is normal in caliber. PELVIC VISCERA: Dense calcifications of the vas deferens. OSSEOUS STRUCTURES: No evidence of acute fracture. Degenerative changes at both glenohumeral joints. No evidence of acute displaced rib fracture. There are old rib fractures on the left. No evidence of acute fracture or subluxation of the thoracolumbar spine. Mild superior endplate deformity of T12 is unchanged. Unchanged fusion of L1 and L2 vertebral bodies and degenerative disc disease and large Schmorl's node at L2-L3. The sacrum and bony pelvis appears intact. IMPRESSION: Given limitations as noted above, no definite evidence of acute traumatic injury of the chest, abdomen, and pelvis on this noncontrast CT. No acute fractures are demonstrated. Moderate bilateral pleural effusions, in the absence of rib fractures, are likely nontraumatic. Extensive groundglass opacities in the lungs could represent pulmonary edema or multifocal infection. Additional incidental findings as noted above.
--- NOTE | 2017-04-03 08:30 | RADIOLOGY REPORT ---
EXAMINATION: XR FOREARM, RIGHT XR WRIST, RIGHT CLINICAL INFORMATION: Trauma. Skin tear. COMPARISON: None TECHNIQUE: Right wrist, 4 views Right forearm, 2 views FINDINGS: Right forearm: Alignment is normal at the elbow and wrist. The radius and ulna are intact. Incidentally noted is a subchondral cyst of the capitellum at the elbow. There is nonspecific soft tissue swelling of the elbow, forearm and wrist. Peripheral vessels are calcified. Right wrist: No acute fracture or subluxation. Moderate osteoarthrosis of the first carpometacarpal joint. No acute carpal bone fracture or carpal subluxation. Peripheral vessels are calcified. IMPRESSION: 1. No acute osseous injury. 2. Diffuse soft tissue swelling of the elbow, forearm and wrist. 3. Moderate osteoarthrosis of the first carpometacarpal joint.
--- NOTE | 2017-04-03 08:44 | RADIOLOGY REPORT ---
EXAMINATION: XR KNEE, RIGHT XR TOES, RIGHT CLINICAL INFORMATION: Status post trauma, skin injury of the knee, history of right great toe amputation, necrotic second and third toes COMPARISON: Right foot radiographs from 03/25/2017 TECHNIQUE: 4 views of the right knee were obtained. 3 views of the right toes were obtained. FINDINGS: Knee: No evidence of acute fracture or malalignment. No joint effusion. Joint spaces are preserved. Extensive vascular calcifications are demonstrated. Toes: Again seen are postsurgical changes of great toe amputation with remnant proximal metatarsal. Interval soft tissue debridement at the medial aspect of the forefoot with wound VAC apparatus overlying the surgical site. There are no gross destructive changes or significant interval change in the appearance of the remaining osseous structures compared to recent radiographs from 03/25/2017. No evidence of acute fracture. The joint spaces are preserved with anatomic alignment. IMPRESSION: No evidence of acute fracture or malalignment of the right knee. Interval soft tissue debridement of the medial aspect of the right forefoot. Otherwise similar postsurgical appearance of great toe amputation. No evidence of gross osseous destruction or acute traumatic injury.
[2017-04-03 08:53] LABS: ABSOLUTE BASOPHIL COUNT 0.1 /CUMM (0.0-0.2); ABSOLUTE EOSINOPHIL COUNT 0 /CUMM (0.0-0.7); ABSOLUTE GRANULOCYTE CT 16.1 /CUMM (1.4-6.5); ABSOLUTE LYMPH COUNT 0.4 /CUMM (1.2-3.4); ABSOLUTE MONOCYTE COUNT 0.7 /CUMM (0.10-0.60); BASOPHIL % 0.3 % (0.0-2.0); EOSINOPHIL % 0 % (0-5); GRANULOCYTE % 93.2 % (42.2-75.2); HEMATOCRIT 26.4 % (42-52); MEAN CORPUSCULAR HGB 30.5 PG (27.0-31.0); MEAN CORPUSCULAR HGB CONC 33.1 G/DL (33.0-37.0); MEAN CORPUSCULAR VOLUME 92.2 FL (80.0-94.0); MEAN PLATELET VOLUME 8.1 FL (7.4-10.4); PLATELET COUNT 406 /CUMM (130-400); RBC DISTRIBUTION WIDTH 13.4 % (11.5-14.5); RED BLOOD CELL CT 2.86 /CUMM (4.70-6.10)
[2017-04-03 08:54] LABS: WHITE BLOOD CELL COUNT 17.3 /CUMM (4.8-10.8)
--- NOTE | 2017-04-03 10:47 | Cons- Cardiology ---
General Information and HPI Consulting Request Date of Consult: 04/03/17 Requested By: MD Dane Reason for Consult: Abnormal troponin in a patient who presents with gangrene of his foot and a fall in the [facility]. Source of Information: patient, old records Exam Limitations: no limitations History of Present Illness: Angelo Liu is a 71-year-old man who had pacemaker implanted in 2009 for complete heart block. He is pacemaker dependent. The pacemaker has been working nicely since then. He also has diabetes, dyslipidemia and hypertension, and rather calcified blood vessels making it difficult to obtain blood pressures. Angelo was done well until when he was admitted to [facility] because of nausea and vomiting, elevated blood sugars and he was noted to have renal failure and also an elevated troponin of 0.75. Actually the patient had left by the time the troponin came back and he was recalled again to the emergency room. He did not describe any chest pain or shortness of breath. He was admitted and watched on telemetry. He did not have any acute EKG changes but he had 100% paced rhythm so it is difficult to interpret. He did not have evidence of congestive heart failure. His peak troponin was 0.75 and came down to 0.3. We recommended that the patient have a cardiac catheterization done because of the fact that he has "silent ischemia." We did repeat his echocardiogram in the hospital which showed a reduced ejection fraction of 40% to 45% with inferior and posterior hypo to akinesis. He was sent for cardiac catheterization at [facility] on 12/10/2015. The procedure showed normal left main coronary artery. There was a 50% lesion in the ramus artery, the LAD showed moderate disease with 50% in the distal LAD and 60% in the first diagonal, circumflex showed 50% in the mid circumflex, and 90% in the distal circumflex. The right coronary artery showed 100% lesion in the mid right coronary artery, and there were collaterals from left to right. It was recommended that he be managed medically because of his anatomy. He tolerated the procedure well. He subsequently had followup labs ordered by Dr. Adame which showed a BUN 48 and creatinine 1.9 which is about his baseline. This was done on 12/12 as an outpatient. His cholesterol at that time was 163 and LDL 93 Subsequently Alphonse had some vascular issues. He was recently hospitalized for ischemic right foot. He had angioplasty and atherectomy of his right superficial femoral artery on that admission and was [facility]. Today he was found on the floor at the [facility] for unknown reasons and was transferred to the emergency department. There he was found to have elevated troponin and more gangrenous changes of his right toes. He is being admitted for possible amputation of his right toes as well as increased troponin of 0.44.. He has some some further degree of kidney injury compared to baseline with a current creatinine of 1.8. He also has some congestive changes on his CAT scan of the chest. Angelo cannot tell me how he ended up on the floor in the [facility]. He denies [place] syncope. He is currently not complaining of chest pain. He states his breathing is "okay but could be better". Allergies/Medications Allergies: Coded Allergies: NO KNOWN ALLERGIES (12/07/15) Home Med List: Acetaminophen (Tylenol Extra Strength) 500 MG TABLET 1 TAB PO TID right foot pain Amlodipine Besylate 10 MG TABLET 1 TAB PO DAILY high blood pressure Aspirin (Children's Aspirin) 81 MG TAB.CHEW 1 TAB PO DAILY HEART HEALTH ( Reported) Atorvastatin Calcium (Lipitor) 40 MG TABLET 1 TAB PO DAILY HLD Fluticasone Furoate (Flonase Sensimist) 27.5 MCG/ACTUATION SPRAY.SUSP 2 PUF NS DAILY ALLERGY (Reported) Insulin Aspart (Novolog) 100 UNIT/ML VIAL 0 SC QHS DIABETES LESS THAN GLUCOSE 250, GIVE NO INSULIN 251-300 GIVE 2 UNITS 301-350 GIVE 3 UNITS 351-400 GIVE 4 UNITS Insulin Aspart (Novolog) 100 UNIT/ML VIAL 0 SC TIDAC DIABETES GLUCOSE LESS THAN 80 GIVE NO INSULIN GLUCOSE 80-150 GIVE 3 UNITS 151-200 GIVE 5 UNITS 201-250 GIVE 6 UNITS 251-300 GIVE 7 UNITS 301-350 GIVE 8 UNITS 351-400 GIVE 9 UNITS greater than 400 give 9 units and CALL MD Insulin Detemir (Levemir) 100 UNIT/ML VIAL 10 UNITS SC BID DIABETES Losartan (Cozaar) 100 MG TABLET 1 TAB PO DAILY HYPERTENSION (Reported) Metoprolol Succ XL (Toprol XL) 25 MG TAB 1 TAB PO DAILY HYPERTENSION ( Reported) Pregabalin (Lyrica) 50 MG CAPSULE 1 CAP PO TID NEUROPATHY (Reported) Vancomycin HCl 1 GRAM VIAL.PORT 1 VIAL IV BID OSTEOMYELITIS GIVE UNTIL March. Current Medications: Current Medications Sig/Coral Start time Last Medication Dose Route Stop Time Status Admin Aspirin 0 .STK-MED ONE 04/03 1001 DC PO Aspirin 325 MG ONCE ONE 04/03 1000 DC 04/03 PO 04/03 1001 1000 Review of Systems Review of Systems: He has no other complaints Past History Travel History Traveled to [place] past 21 day No Medical History Neurological: NONE, peripheral neuropathy EENT: cataracts, diabetic retinopathy Cardiovascular: CAD, hypertension, hyperlipidemia, Pacemaker (R) Respiratory: bronchitis Gastrointestinal: NONE Hepatic: NONE Renal: NONE Musculoskeletal: fracture, right foot osteomyeltitis w/ wound vac at right great toe (Mar 2017) Psychiatric: NONE Endocrine: diabetes type 1 Blood Disorders: NONE Cancer(s): NONE NOCTURNIST/Reproductive: NONE Surgical History Surgical History: pacemaker right great toe amputation Feb 2017 Family History Relations & Conditions If Any: MOTHER FH: myocardial infarction Psychosocial History Services at Home: None Primary Language: Turkmen Functional Ability ADLs Independent: dressing, eating, toileting, bathing. Ambulation: independent IADLs Independent: shopping, housework, finances, food prep, telephone, transportation , medication admin. Exam & Diagnostic Data Vital Signs and I&O Vital Signs Date Time Temp Pulse Resp B/P B/P Pulse O2 O2 Flow FiO2 Mean Ox Delivery Rate 04/03 947 97.6 98 20 138/65 98 Nasal 4.0L Cannula 04/03 758 97.6 83 20 131/58 93 Nasal 6.0L Cannula 04/03 0551 86 Room Air Room Air 04/03 0545 92 22 109/53 91 Nasal 4.0L Cannula Intake & Output 04/03 1600 04/03 0000 04/02 1600 04/02 0000 Intake Total Output Total Balance Patient 180 lb Weight Physical Exam: He is an elderly-appearing chronically ill-appearing male in no acute distress HEENT exam normal Neck veins not distended Carotids normal Chest a few rales heard posteriorly Heart regular rhythm soft systolic murmur at the apex Extremities right 2nd and 3rd toes necrotic. S/p amputation of R great toe. There is a wound VAC in the medial aspect of the right foot. Labs/Fransisco Results: Laboratory Tests 04/03 844 Chemistry Sodium (137 - 145 mmol/L) 136 L Potassium (3.5 - 5.1 mmol/L) 4.9 Chloride (98 - 107 mmol/L) 98 Carbon Dioxide (22 - 30 mmol/L) 23 Anion Gap (5 - 16) 15 BUN (9 - 20 mg/dL) 33 H Creatinine (0.7 - 1.2 mg/dL) 1.8 H Estimated GFR (>60 ml/min) 38 L BUN/Creatinine Ratio (7 - 25 %) 18.3 Glucose (65 - 99 mg/dL) 265 H Calcium (8.4 - 10.2 mg/dL) 8.1 L Total Bilirubin (0.2 - 1.3 mg/dL) 0.4 Direct Bilirubin (< 0.4 mg/dL) 0.3 AST (17 - 59 U/L) 56 ALT (21 - 72 U/L) 42 Alkaline Phosphatase (< 127 U/L) 72 Troponin I (<0.11 ng/ml) 0.44 *H Total Protein (6.3 - 8.2 g/dL) 5.5 L Albumin (3.5 - 5.0 g/dL) 2.6 L Amylase (30 - 110 U/L) 35 Lipase (23 - 300 U/L) 26 Hematology CBC w Diff MAN DIFF ORDERED WBC (4.8 - 10.8 /CUMM) 17.3 H RBC (4.70 - 6.10 /CUMM) 2.86 L Hgb (14.0 - 18.0 G/DL) 8.7 L Hct (42 - 52 %) 26.4 L MCV (80.0 - 94.0 FL) 92.2 MCH (27.0 - 31.0 PG) 30.5 MCHC (33.0 - 37.0 G/DL) 33.1 RDW (11.5 - 14.5 %) 13.4 Plt Count (130 - 400 /CUMM) 406 H MPV (7.4 - 10.4 FL) 8.1 Gran % (42.2 - 75.2 %) 93.2 H Lymphocytes % (20.5 - 51.1 %) 2.5 L Monocytes % (1.7 - 9.3 %) 4.0 Eosinophils % (0 - 5 %) 0 Basophils % (0.0 - 2.0 %) 0.3 Absolute Granulocytes (1.4 - 6.5 /CUMM) 16.1 H Segmented Neutrophils (42.2 - 75.2 %) 86 H Band Neutrophils (0.0 - 5.0 %) 6 H Absolute Lymphocytes (1.2 - 3.4 /CUMM) 0.4 L Lymphocytes (20.5 - 51.1 %) 4 L Monocytes (1.7 - 9.3 %) 4 Absolute Monocytes (0.10 - 0.60 /CUMM) 0.7 H Absolute Eosinophils (0.0 - 0.7 /CUMM) 0 Absolute Basophils (0.0 - 0.2 /CUMM) 0.1 Platelet Estimate (ADEQUATE) VERIFIED BY SMEAR Normocytic RBCs VERIFIED Normochromic RBCs VERIFIED Diagnostic Data EKG Results Atrially sensed ventricular paced rhythm CXR Results Plain chest x-ray not done, see CT of chest. Other Results IMPRESSION: Given limitations as noted above, no definite evidence of acute traumatic injury of the chest, abdomen, and pelvis on this noncontrast CT. No acute fractures are demonstrated. Moderate bilateral pleural effusions, in the absence of rib fractures, are likely nontraumatic. Extensive groundglass opacities in the lungs could represent pulmonary edema or multifocal infection. Additional incidental findings as noted above. DICTATED BY: Xiao Farley MD DATE/TIME DICTATED:04/03/17747 HOOP RIVETING MACHINE OPERATOR HELPER:INES DATE/TIME TRANSCRIBED:04/03/17747 Assessment/Plan Assessment/Plan Angelo Liu is a 71-year-old man with extensive vascular disease. He has heart block with a permanent pacemaker. He has hypertension and dyslipidemia. He has known coronary artery disease but did not require revascularization when studied recently. He recently had revascularization of his right leg but still has gangrene and ischemia of his right foot. He is in a [facility] and was found on the floor the [facility] today. It is not clear whether he had a syncopal episode, he does not recall the incident. He presents in mild congestive heart failure on CT and with a positive troponin of 0.44. His last echo was done fairly recently and showed an ejection fraction of 45-50%. I recommend serial EKGs and enzymes. I don't think he needs another echocardiogram at this time. I recommend at least one dose of Lasix because of his pulmonary vascular congestion on CT scan. He needs urgent attention to his gangrenous right toes, which will be supplied by Dr. Moreno. I think he can safely undergo any procedures on his foot without any further testing at this time. We will follow him on telemetry. Copies To: Deep LOZANO,Estuardo Bustos. Consult Acknowledgment - Thank you for your consult request.
[2017-04-03 11:26] LABS: PT 13.8 SEC (9.4-12.5)
--- NOTE | 2017-04-03 11:26 | History & Physical ---
Jean Carlos Riley 04/03/17 1126: General Information and HPI MD Statement: I have seen and personally examined IJM LIU and documented this H&P. The patient is a 71 year old M who presented with a patient stated chief complaint of unwitnessed fall. Source of Information: patient, old records Exam Limitations: patient's age, clinical condition History of Present Illness: Mr. Liu is a 71-year-old man with history of hypertension, hyperlipidemia, status post pacemaker placement, type 1 diabetes, complicated by neuropathy, retinopathy, nephropathy presents to the ED after sustaining an unwitnessed fall at the [facility] this morning. Patient has no reconnection of the incidents. He states that he never tries to get out of bed without help, and is confused as to how he was found on the floor at the facility. He only woke up in the [facility] ED, and is unaware if his loss of consciousness was associated with any seizure-like activity. He denied noticing any palpitations, lightheadedness or dizziness prior to or after the episode of loss of consciousness. He is unclear if his sugars have been well- controlled in the facility. He states compliance with all his medications, as they are administered by the nursing staff at [facility]. Patient was recently discharged on 03/30/2017 from [facility] after having a prolonged stay requiring SFA atherectomy, toe amputation with wound VAC placement, diagnosis of osteomyelitis requiring PICC line placement and a prolonged vancomycin course. Today, patient presents with no fevers, chills, no chest pain, no palpitations. He does endorse to some intermittent shortness of breath. No cough or phlegm production. He does have elevated white count with left shift on review of his labs. He does have evidence of acute kidney injury as well. Other systems reviewed and negative, exceptions above. Allergies/Medications Allergies: Coded Allergies: NO KNOWN ALLERGIES (12/07/15) Home Med list Acetaminophen (Tylenol Extra Strength) 500 MG TABLET 1 TAB PO TID right foot pain Amlodipine Besylate 10 MG TABLET 1 TAB PO DAILY high blood pressure Aspirin (Children's Aspirin) 81 MG TAB.CHEW 1 TAB PO DAILY HEART HEALTH ( Reported) Atorvastatin Calcium (Lipitor) 40 MG TABLET 1 TAB PO DAILY HLD Fluticasone Furoate (Flonase Sensimist) 27.5 MCG/ACTUATION SPRAY.SUSP 2 PUF NS DAILY ALLERGY (Reported) Insulin Aspart (Novolog) 100 UNIT/ML VIAL 0 SC QHS DIABETES LESS THAN GLUCOSE 250, GIVE NO INSULIN 251-300 GIVE 2 UNITS 301-350 GIVE 3 UNITS 351-400 GIVE 4 UNITS Insulin Aspart (Novolog) 100 UNIT/ML VIAL 0 SC TIDAC DIABETES GLUCOSE LESS THAN 80 GIVE NO INSULIN GLUCOSE 80-150 GIVE 3 UNITS 151-200 GIVE 5 UNITS 201-250 GIVE 6 UNITS 251-300 GIVE 7 UNITS 301-350 GIVE 8 UNITS 351-400 GIVE 9 UNITS greater than 400 give 9 units and CALL Insulin Detemir (Levemir) 100 UNIT/ML VIAL 10 UNITS SC BID DIABETES Losartan (Cozaar) 100 MG TABLET 1 TAB PO DAILY HYPERTENSION (Reported) Metoprolol Succ XL (Toprol XL) 25 MG TAB 1 TAB PO DAILY HYPERTENSION ( Reported) Pregabalin (Lyrica) 50 MG CAPSULE 1 CAP PO TID NEUROPATHY (Reported) Vancomycin HCl 1 GRAM VIAL.PORT 1 VIAL IV BID OSTEOMYELITIS GIVE UNTIL March. 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 Ambulation: independent IADLs Independent: shopping, housework, finances, food prep, telephone, transportation , medication admin. Review of Systems Review of Systems Constitutional: Reports: see HPI. Exam & Diagnostic Data Last 24 Hrs of Vital Signs/I&O Vital Signs Date Time Temp Pulse Resp B/P B/P Pulse O2 O2 Flow FiO2 Mean Ox Delivery Rate 04/03 1153 98.0 96 20 142/68 97 Nasal 4.0L Cannula 04/03 0948 97.6 98 20 138/65 98 Nasal 4.0L Cannula 04/03 758 97.6 83 20 131/58 93 Nasal 6.0L Cannula 04/03 0651 86 Room Air Room Air 04/03 0645 92 22 109/53 91 Nasal 4.0L Cannula Intake & Output 04/03 1600 04/03 0800 04/03 0000 Intake Total Output Total 300 Balance -300 Output, Urine 300 Patient 180 lb Weight Physical Exam General Appearance Alert, Oriented X3, Cooperative HEENT Atraumatic, PERRLA, dry mucous membranes Neck Supple, No JVD, No thryomegaly Cardiovascular Regular Rate, Normal S1, Normal S2 Lungs Clear to Auscultation, Normal Air Movement, bibasilar coarse breath sounds. Abdomen Normal Bowel Sounds, Soft, No Tenderness Extremities No Clubbing, right forearm-mechanical ecchymosis and swelling. Right knee with skin tear. Right foot with wound VAC on great toe. Necrotic second and third toes. Last 24 Hrs of Labs/Fransisco: Laboratory Tests 04/03/17 1150: Ur Eosinophil Smear Pending 04/03/17 1150: Urine Color Pending, Urine Clarity Pending, Urine pH Pending, Ur Specific [place] Pending, Urine Protein Pending, Urine Ketones Pending, Urine Nitrite Pending, Urine Bilirubin Pending, Urine Urobilinogen Pending, Ur Leukocyte Esterase Pending, Ur Microscopic SEDIMENT EXAMINED, Urine RBC Pending, Urine Hemoglobin Pending, Urine Glucose Pending 04/03/17 1113: CBC w Diff MAN DIFF ORDERED, RBC 2.86 L, MCV 92.5, MCH 31.1 H, MCHC 33.6, RDW 13.1, MPV 8.3, Gran % 93.0 H, Lymphocytes % 3.4 L, Monocytes % 3.1, Eosinophils % 0.1, Basophils % 0.4, Absolute Granulocytes 15.0 H, Segmented Neutrophils 85 H, Band Neutrophils 7 H, Absolute Lymphocytes 0.5 L, Lymphocytes 3 L, Monocytes 4, Absolute Monocytes 0.5, Eosinophils 1, Absolute Eosinophils 0, Absolute Basophils 0.1, Normocytic RBCs VERIFIED, Normochromic RBCs VERIFIED 04/03/17 1101: PT Cancelled, INR Cancelled 04/03/17 0845: Anion Gap 15, Estimated GFR 38 L, BUN/Creatinine Ratio 18.3, Glucose 265 H, Calcium 8.1 L, Total Bilirubin 0.4, Direct Bilirubin 0.3, AST 56, ALT 42, Alkaline Phosphatase 72, Troponin I 0.44 *H, Total Protein 5.5 L, Albumin 2.6 L, Amylase 35, Lipase 26, PT 13.8 H, INR 1.32 H, CBC w Diff MAN DIFF ORDERED, RBC 2.86 L, MCV 92.2, MCH 30.5, MCHC 33.1, RDW 13.4, MPV 8.1, Gran % 93.2 H, Lymphocytes % 2.5 L, Monocytes % 4.0, Eosinophils % 0, Basophils % 0.3, Absolute Granulocytes 16.1 H, Segmented Neutrophils 86 H, Band Neutrophils 6 H, Absolute Lymphocytes 0.4 L, Lymphocytes 4 L, Monocytes 4, Absolute Monocytes 0.7 H, Absolute Eosinophils 0, Absolute Basophils 0.1, Platelet Estimate VERIFIED BY SMEAR, Normocytic RBCs VERIFIED, Normochromic RBCs VERIFIED , Random Vancomycin 17.3 Microbiology 04/03 1150 URINE ROUT: Urine Culture - RECD Diagnostic Data EKG Results Atrially sensed ventricular paced rhythm Other Results IMPRESSION: Given limitations as noted above, no definite evidence of acute traumatic injury of the chest, abdomen, and pelvis on this noncontrast CT. No acute fractures are demonstrated. Moderate bilateral pleural effusions, in the absence of rib fractures, are likely nontraumatic. Extensive groundglass opacities in the lungs could represent pulmonary edema or multifocal infection. Additional incidental findings as noted above. DICTATED BY: Xiao Farley MD DATE/TIME DICTATED:04/03/17747 ROTARY DRIER OPERATOR:INES DATE/TIME TRANSCRIBED:04/03/17747 Assessment/Plan Assessment: 71-year-old gentleman with history of hypertension, hyperlipidemia, diabetes on insulin pump, status post pacemaker placement with recent admission on March 18 requiring toe amputation, significant peripheral vascular disease requiring SFA atherectomy and diagnosis of MRSA osteomyelitis requiring PICC line placement for prolonged antibiotics discharged on 03/30/2017 presents today after sustaining a unwitnessed fall, high white count with bandemia, acute kidney injury and elevated troponins. To be admitted to telemetry floor for elevated troponins. 1. Syncope. Keep on telemetry. Cardiology evaluation.? Pacemaker evaluation. Check echocardiogram. Check orthostatics, when able. Head CT normal. ?EEG. 2. Rule out ACS: No chest pain. Elevated troponins likely secondary to acute kidney injury. Although, Intermittent shortness of breath and CT findings of moderate pleural effusion may represent some decrease in systolic function. No JVD. Rule out ACS with serial troponins and EKG. Check echocardiogram. Continue aspirin, statin. Hold beta nanda. Await cardiology recommendations. 3. Osteomyelitis, MRSA: Hold vancomycin until ID eval. Recieved 1 dose this am. Check vancomycin levels. Received 1 dose of 1 g this morning at the facility. Needs dose readjustment due to kidney dysfunction. Elevated white count with bandemia noted. No CT evidence of pneumonia. Check urinalysis, urine eos (to differentiate between AIN versus Vanco nerphrotoxicity), urine culture (recent [place] placement during last admission). PICC line site clean and nontender. Please obtain ID consultation. Podiatry consultation-it seems patient was scheduled for toe amputation on Thursday. Dr. Moreno aware. Keep nothing by mouth. 4. Acute kidney injury. Prerenal versus AIN versus Vanco nephrotoxicity. No CT evidence of obstruction. Hold fluid for now, given CT evidence of moderate pleural effusions. May need careful Lasix administration, pending echo results. Losartan held. 5. Diabetes. Nothing by mouth sliding scale. Patient was on insulin pump, now on Levemir and SS. Endocrinology consult. Continue Lyrica for neuropathy. 6. Peripheral vascular disease. Will obtain vascular consult. 7. Hypertension. Continue amlodipine. DNR. Nothing by mouth. Heparin for DVT prophylaxis. As Ranked By This Provider Problem List: 1. Syncope Core Measures/Misc (11/09) Acute Coronary Syndrome ACS Diagnosis: No Congestive Heart Failure Congestive Heart Failure Diagnosis No Cerebrovascular Accident CVA/TIA Diagnosis: No VTE (View Protocol) VTE Risk Factors Immobility No Mechanical VTE Prophylaxis d/t N/A MechProphylax Ordered No VTE Pharm Prophylaxis d/t NA PharmProphylax ordered Sepsis (View protocol) Sepsis Present: No Jackie Davey MD 04/03/17 1537: Attending Review Statement Attending Statement Attending Statement: examined this patient, discuss w/resident/PA/AUTOMATION/CONTROLS MANAGER, agreed w/resident/PA/AUTOMATION/CONTROLS MANAGER, reviewed EMR data (avail), discussed with nursing, discussed with case mgmt, amended to note Attending Assessment/Plan: Patient seen and examined. I have reviewed and agree with the H&P as documented by the resident above. I have also reviewed patient's electronic health record. Is currently lying comfortably in bed and not in acute distress. Son was present at the bedside. Significant finding on patient's exam right upper extremity swelling. He has a PICC line in this arm. He has diminished breath sounds bilaterally but with no added sounds. He is status post amputation of the right big toe. Second and third digits extremely gangrenous. Distal pulses not palpable on either extremity bilaterally. Recommendations: -Admit to inpatient General medical service. -Telemetry monitoring to rule out arrhythmia as etiology of his syncope. Obtain echocardiogram. Follow-up with the cardiology service for interrogation of his pacemaker. Check orthostatic vitals. He has no history of seizure disorder. Will hold off EEG for now. -His abnormal troponins may be secondary to his acute kidney injury. He is asymptomatic at present. Continue cardiac medications including beta-nanda therapy. Follow further recommendations from the cardiology service. -Continue antibiotic therapy with vancomycin. Adjust based on his renal function. -Follow-up with the podiatry service for timing of the previously planned amputation. Confirm from the podiatry service the patient will be undergoing transmetatarsal amputation versus below-knee amputation. Follow-up with the cardiology service to obtain preoperative evaluation. -His right upper extremity is swollen. Obtain Doppler to rule out DVT. -Wean down oxygen supplementation as tolerated. Obtain chest x-ray in view of his increased oxygen requirement compared to previous admission. DVT prophylaxis with subcutaneous heparin.
[2017-04-03 11:27] LABS: ABSOLUTE BASOPHIL COUNT 0.1 /CUMM (0.0-0.2); ABSOLUTE EOSINOPHIL COUNT 0 /CUMM (0.0-0.7); ABSOLUTE LYMPH COUNT 0.5 /CUMM (1.2-3.4); ABSOLUTE MONOCYTE COUNT 0.5 /CUMM (0.10-0.60); BASOPHIL % 0.4 % (0.0-2.0); EOSINOPHIL % 0.1 % (0-5); HEMATOCRIT 26.5 % (42-52); MEAN CORPUSCULAR HGB 31.1 PG (27.0-31.0); MEAN CORPUSCULAR HGB CONC 33.6 G/DL (33.0-37.0); MEAN CORPUSCULAR VOLUME 92.5 FL (80.0-94.0); MEAN PLATELET VOLUME 8.3 FL (7.4-10.4); PLATELET COUNT 408 /CUMM (130-400); RBC DISTRIBUTION WIDTH 13.1 % (11.5-14.5); RED BLOOD CELL CT 2.86 /CUMM (4.70-6.10); WHITE BLOOD CELL COUNT 16.1 /CUMM (4.8-10.8)
[2017-04-03 14:00] VITALS: BP 148/70
[2017-04-03 14:34] VITALS: BP 130/60
--- NOTE | 2017-04-03 14:41 | Cons- Infect Disease ---
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 On admission he was afebrile. Laboratory data revealed a white blood cell count of 17,000, with 86 segs and 6 bands, BUN/creatinine 33 and 1.8, with normal liver enzymes, troponin 0.44, Vancomycin random level 17.3, INR 1.32. Urinalysis 1-3 RBCs/rare WBCs. CT of the head and cervical spine were negative for any acute process. CTA of the chest, abdomen and pelvis revealed moderate bilateral pleural effusions with extensive ground glass opacities in the lungs. X-rays of the right forearm, right wrist and right knee were negative for any fracture. X -ray of the right foot revealed no evidence of fracture or osteomyelitis. He was catheterized for 300 mL of urine. He was evaluated by Cardiology, who recommended 1 dose of Lasix. At present he does note a cough, which is dry, but he denies any shortness of breath or chest pain. He does note hesitancy on urination but denies any dysuria. He does not report any significant discomfort in the right foot. Allergies/Medications Allergies: Coded Allergies: NO KNOWN ALLERGIES (12/07/15) Home Med List: Acetaminophen (Tylenol Extra Strength) 500 MG TABLET 1 TAB PO TID right foot pain Amlodipine Besylate 10 MG TABLET 1 TAB PO DAILY high blood pressure Aspirin (Children's Aspirin) 81 MG TAB.CHEW 1 TAB PO DAILY HEART HEALTH ( Reported) Atorvastatin Calcium (Lipitor) 40 MG TABLET 1 TAB PO DAILY HLD Fluticasone Furoate (Flonase Sensimist) 27.5 MCG/ACTUATION SPRAY.SUSP 2 PUF NS DAILY ALLERGY (Reported) Insulin Aspart (Novolog) 100 UNIT/ML VIAL 0 SC QHS DIABETES LESS THAN GLUCOSE 250, GIVE NO INSULIN 251-300 GIVE 2 UNITS 301-350 GIVE 3 UNITS 351-400 GIVE 4 UNITS Insulin Aspart (Novolog) 100 UNIT/ML VIAL 0 SC TIDAC DIABETES GLUCOSE LESS THAN 80 GIVE NO INSULIN GLUCOSE 80-150 GIVE 3 UNITS 151-200 GIVE 5 UNITS 201-250 GIVE 6 UNITS 251-300 GIVE 7 UNITS 301-350 GIVE 8 UNITS 351-400 GIVE 9 UNITS greater than 400 give 9 units and CALL MD Insulin Detemir (Levemir) 100 UNIT/ML VIAL 10 UNITS SC BID DIABETES Losartan (Cozaar) 100 MG TABLET 1 TAB PO DAILY HYPERTENSION (Reported) Metoprolol Succ XL (Toprol XL) 25 MG TAB 1 TAB PO DAILY HYPERTENSION ( Reported) Pregabalin (Lyrica) 50 MG CAPSULE 1 CAP PO TID NEUROPATHY (Reported) Vancomycin HCl 1 GRAM VIAL.PORT 1 VIAL IV BID OSTEOMYELITIS GIVE UNTIL March. 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 Ambulation: independent IADLs Independent: shopping, housework, finances, food prep, telephone, transportation , medication admin. Review of Systems Review of Systems All Other Systems: Reviewed and Negative Exam & Diagnostic Data Last 24 Hrs of Vital Signs/I&O Vital Signs Date Time Temp Pulse Resp B/P B/P Pulse O2 O2 Flow FiO2 Mean Ox Delivery Rate 04/03 1401 Nasal 4.0L Cannula 04/03 1400 Nasal 4.0L Cannula 04/03 1153 98.0 96 20 142/68 97 Nasal 4.0L Cannula 04/03 0948 97.6 98 20 138/65 98 Nasal 4.0L Cannula 04/03 0759 97.6 83 20 131/58 93 Nasal 6.0L Cannula 04/03 0651 86 Room Air Room Air 04/03 0645 92 22 109/53 91 Nasal 4.0L Cannula Intake & Output 04/03 1600 04/03 0800 04/03 0000 Intake Total Output Total 300 Balance -300 Output, Urine 300 Patient 180 lb Weight Physical Exam Other Physical Findings: Afebrile. He is awake and alert in no acute distress. Skin scattered ecchymoses. HEENT poor dentition. Neck is supple with no adenopathy. Lungs decreased breath sounds at both bases. Heart regular rhythm with no murmur. Abdomen is soft, nontender with positive bowel sounds. Back no CVA tenderness. Extremities PICC in place in the right upper extremity, with no inflammation at the site; right upper extremity edema; right foot with wound VAC in place, with necrotic second and third toes and with mild erythema over the dorsum of the foot. Neuro is without focality. Last 24 Hours of Lab Results: Laboratory Tests 04/03 04/03 1150 1150 Urines Urinalysis MOD H Urine Color (YEL,AMB,STR) YEL Urine Clarity (CLEAR) HAZY H Urine pH (5.0 - 8.0) 6.0 Ur Specific [place] (1.001 - 1.035) 1.025 Urine Protein (NEG,<30 MG/DL) TRACE H Urine Ketones (NEG) NEG Urine Nitrite (NEG) NEG Urine Bilirubin (NEG) NEG Urine Urobilinogen (0.1 - 1.0 EU/dl) 0.2 Ur Leukocyte Esterase (NEG) NEG Ur Microscopic SEDIMENT EXAMINED Urine RBC (0 - 5 /HPF) 1-3 Urine WBC (0 - 2 /HPF) RARE Ur Eosinophil Smear (NONE) NONE Ur Epithelial Cells (NONE,FEW) RARE Urine Bacteria (NEG/NONE) RARE H Hyaline Casts (0/LPF) 1-3 H Urine Mucus (FEW,NONE) RARE Urine Hemoglobin (NEG) SMALL H Urine Glucose (N MG/DL) 100 H 04/03 04/03 1113 1101 Coagulation PT Cancelled INR Cancelled Hematology CBC w Diff MAN DIFF ORDERED WBC (4.8 - 10.8 /CUMM) 16.1 H RBC (4.70 - 6.10 /CUMM) 2.86 L Hgb (14.0 - 18.0 G/DL) 8.9 L Hct (42 - 52 %) 26.5 L MCV (80.0 - 94.0 FL) 92.5 MCH (27.0 - 31.0 PG) 31.1 H MCHC (33.0 - 37.0 G/DL) 33.6 RDW (11.5 - 14.5 %) 13.1 Plt Count (130 - 400 /CUMM) 408 H MPV (7.4 - 10.4 FL) 8.3 Gran % (42.2 - 75.2 %) 93.0 H Lymphocytes % (20.5 - 51.1 %) 3.4 L Monocytes % (1.7 - 9.3 %) 3.1 Eosinophils % (0 - 5 %) 0.1 Basophils % (0.0 - 2.0 %) 0.4 Absolute Granulocytes (1.4 - 6.5 /CUMM) 15.0 H Segmented Neutrophils (42.2 - 75.2 %) 85 H Band Neutrophils (0.0 - 5.0 %) 7 H Absolute Lymphocytes (1.2 - 3.4 /CUMM) 0.5 L Lymphocytes (20.5 - 51.1 %) 3 L Monocytes (1.7 - 9.3 %) 4 Absolute Monocytes (0.10 - 0.60 /CUMM) 0.5 Eosinophils (0 - 5.0 %) 1 Absolute Eosinophils (0.0 - 0.7 /CUMM) 0 Absolute Basophils (0.0 - 0.2 /CUMM) 0.1 Normocytic RBCs VERIFIED Normochromic RBCs VERIFIED 04/03 0845 Chemistry Sodium (137 - 145 mmol/L) 136 L Potassium (3.5 - 5.1 mmol/L) 4.9 Chloride (98 - 107 mmol/L) 98 Carbon Dioxide (22 - 30 mmol/L) 23 Anion Gap (5 - 16) 15 BUN (9 - 20 mg/dL) 33 H Creatinine (0.7 - 1.2 mg/dL) 1.8 H Estimated GFR (>60 ml/min) 38 L BUN/Creatinine Ratio (7 - 25 %) 18.3 Glucose (65 - 99 mg/dL) 265 H Calcium (8.4 - 10.2 mg/dL) 8.1 L Total Bilirubin (0.2 - 1.3 mg/dL) 0.4 Direct Bilirubin (< 0.4 mg/dL) 0.3 AST (17 - 59 U/L) 56 ALT (21 - 72 U/L) 42 Alkaline Phosphatase (< 127 U/L) 72 Troponin I (<0.11 ng/ml) 0.44 *H Total Protein (6.3 - 8.2 g/dL) 5.5 L Albumin (3.5 - 5.0 g/dL) 2.6 L Amylase (30 - 110 U/L) 35 Lipase (23 - 300 U/L) 26 Coagulation PT (9.4 - 12.5 SEC) 13.8 H INR (0.90 - 1.17) 1.32 H Hematology CBC w Diff MAN DIFF ORDERED WBC (4.8 - 10.8 /CUMM) 17.3 H RBC (4.70 - 6.10 /CUMM) 2.86 L Hgb (14.0 - 18.0 G/DL) 8.7 L Hct (42 - 52 %) 26.4 L MCV (80.0 - 94.0 FL) 92.2 MCH (27.0 - 31.0 PG) 30.5 MCHC (33.0 - 37.0 G/DL) 33.1 RDW (11.5 - 14.5 %) 13.4 Plt Count (130 - 400 /CUMM) 406 H MPV (7.4 - 10.4 FL) 8.1 Gran % (42.2 - 75.2 %) 93.2 H Lymphocytes % (20.5 - 51.1 %) 2.5 L Monocytes % (1.7 - 9.3 %) 4.0 Eosinophils % (0 - 5 %) 0 Basophils % (0.0 - 2.0 %) 0.3 Absolute Granulocytes (1.4 - 6.5 /CUMM) 16.1 H Segmented Neutrophils (42.2 - 75.2 %) 86 H Band Neutrophils (0.0 - 5.0 %) 6 H Absolute Lymphocytes (1.2 - 3.4 /CUMM) 0.4 L Lymphocytes (20.5 - 51.1 %) 4 L Monocytes (1.7 - 9.3 %) 4 Absolute Monocytes (0.10 - 0.60 /CUMM) 0.7 H Absolute Eosinophils (0.0 - 0.7 /CUMM) 0 Absolute Basophils (0.0 - 0.2 /CUMM) 0.1 Platelet Estimate (ADEQUATE) VERIFIED BY SMEAR Normocytic RBCs VERIFIED Normochromic RBCs VERIFIED Toxicology Random Vancomycin (ug/ml) 17.3 Last 24 Hours of [place] Results: Urine culture April 03 pending Diagnostic Data Recent Imaging Findings: CT of the head and cervical spine were negative for any acute process. CTA of the chest, abdomen and pelvis revealed moderate bilateral pleural effusions with extensive ground glass opacities in the lungs. X-rays of the right forearm, right wrist and right knee were negative for any fracture. X-ray of the right foot revealed no evidence of fracture or osteomyelitis. 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 The etiology of his fall is unclear. He is afebrile, but he has a leukocytosis, possibly secondary to the gangrenous second and third toes of his right foot, and he is apparently scheduled for a transmetatarsal amputation next week. His renal insufficiency may be secondary to dehydration, urinary retention, status post catheterization of 300 mL of urine in the ER, sepsis or medications, for example Vancomycin. He has right upper extremity edema and need to rule out a DVT in the presence of a PICC. His increased oxygen requirements (compared to his previous hospitalization) may be secondary to CHF, suggested on the chest x- ray, but, if he proves to have a DVT, will need to rule out a pulmonary embolism. His elevated troponin is of unclear significance and he has been evaluated by Cardiology. Suggestion: 1. Doppler of the right upper extremity 2. Further evaluation of his hypoxia based on above 3. Await right transmetatarsal amputation per Podiatry 4. Continue bladder scans to rule out urinary retention 5. Further management of his fluid status per Cardiology 6. Consider need for Vascular surgery follow-up 7. Vancomycin random level on April 04 and re-dose with Vancomycin 1 g IV 1 if < than 15 Consult Acknowledgment - Thank you for your consult request.
--- NOTE | 2017-04-03 16:48 | Cons- Endocrinology ---
General Information and HPI Consulting Request Date of Consult: 04/03/17 Requested By: medical team Reason for Consult: management of uncontrolled diabetes type 1. Source of Information: patient, old records Exam Limitations: no limitations History of Present Illness: 70 y/o male, Hx of DM type 1 diagnosed when he was 14 years old. He was on an insulin pump with basal rate running at 0.9 units per hour in the past. His diabetes was complicated by neuropathy, retinopathy, nephropathy. Patient presented to the ED after sustaining an unwitnessed fall at the [facility] this morning. Patient was recently discharged on 03/30/2017 from [facility] after having a prolonged stay for toe amputation of right foot, diagnosis of osteomyelitis requiring PICC line placement and a prolonged vancomycin course. He was on Levemir 10 units twice a day, Novolog coverage before meals ( 3 units when his FSG is between 80 and 150 mg/dl, etc). In ER, his FSG was > 318 and he received regular insulin 10 units at around 11 am. His Troponin was positive in ER. Allergies/Medications Allergies: Coded Allergies: NO KNOWN ALLERGIES (12/07/15) Home Med List: Acetaminophen (Tylenol Extra Strength) 500 MG TABLET 1 TAB PO TID right foot pain Amlodipine Besylate 10 MG TABLET 1 TAB PO DAILY high blood pressure Aspirin (Children's Aspirin) 81 MG TAB.CHEW 1 TAB PO DAILY HEART HEALTH ( Reported) Atorvastatin Calcium (Lipitor) 40 MG TABLET 1 TAB PO DAILY HLD Fluticasone Furoate (Flonase Sensimist) 27.5 MCG/ACTUATION SPRAY.SUSP 2 PUF NS DAILY ALLERGY (Reported) Insulin Aspart (Novolog) 100 UNIT/ML VIAL 0 SC QHS DIABETES LESS THAN GLUCOSE 250, GIVE NO INSULIN 251-300 GIVE 2 UNITS 301-350 GIVE 3 UNITS 351-400 GIVE 4 UNITS Insulin Aspart (Novolog) 100 UNIT/ML VIAL 0 SC TIDAC DIABETES GLUCOSE LESS THAN 80 GIVE NO INSULIN GLUCOSE 80-150 GIVE 3 UNITS 151-200 GIVE 5 UNITS 201-250 GIVE 6 UNITS 251-300 GIVE 7 UNITS 301-350 GIVE 8 UNITS 351-400 GIVE 9 UNITS greater than 400 give 9 units and CALL MD Insulin Detemir (Levemir) 100 UNIT/ML VIAL 10 UNITS SC BID DIABETES Losartan (Cozaar) 100 MG TABLET 1 TAB PO DAILY HYPERTENSION (Reported) Metoprolol Succ XL (Toprol XL) 25 MG TAB 1 TAB PO DAILY HYPERTENSION ( Reported) Pregabalin (Lyrica) 50 MG CAPSULE 1 CAP PO TID NEUROPATHY (Reported) Vancomycin HCl 1 GRAM VIAL.PORT 1 VIAL IV BID OSTEOMYELITIS GIVE UNTIL March. Review of Systems Review of Systems Constitutional: Reports: see HPI. Cardiovascular: Denies: chest pain. Respiratory: Denies: short of breath. GI: Denies: abdominal pain. Musculoskeletal: Reports: see HPI (right foot infection). Skin: Reports: change in skin color, erythema (right foot). Hematologic/Endocrine: Reports: see HPI. 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 Ambulation: independent IADLs Independent: shopping, housework, finances, food prep, telephone, transportation , medication admin. Exam & Diagnostic Data Last 24 Hrs of Vital Signs/I&O Vital Signs Date Time Temp Pulse Resp B/P B/P Pulse O2 O2 Flow FiO2 Mean Ox Delivery Rate 04/03 1434 97.3 89 20 130/60 95 Nasal Cannula 04/03 1401 Nasal 4.0L Cannula 04/03 1400 Nasal 4.0L Cannula 04/03 1153 98.0 96 20 142/68 97 Nasal 4.0L Cannula 04/03 0948 97.6 98 20 138/65 98 Nasal 4.0L Cannula 04/03 0759 97.6 83 20 131/58 93 Nasal 6.0L Cannula 04/03 0651 86 Room Air Room Air 04/03 0645 92 22 109/53 91 Nasal 4.0L Cannula Intake & Output 04/03 1600 04/03 0800 04/03 0000 Intake Total Output Total 300 Balance -300 Output, Urine 300 Patient 180 lb Weight Physical Exam General Appearance: no apparent distress Neck: normal inspection Respiratory: decreased breath sounds Cardiovascular: regular rate/rhythm Gastrointestinal: soft Extremities: right foot swelling and redness along with gangrene on 2nd and 3rd toes Labs/[place] Results: Laboratory Tests 04/03 04/03 1150 1150 Urines Urinalysis MOD H Urine Color (YEL,AMB,STR) YEL Urine Clarity (CLEAR) HAZY H Urine pH (5.0 - 8.0) 6.0 Ur Specific [place] (1.001 - 1.035) 1.025 Urine Protein (NEG,<30 MG/DL) TRACE H Urine Ketones (NEG) NEG Urine Nitrite (NEG) NEG Urine Bilirubin (NEG) NEG Urine Urobilinogen (0.1 - 1.0 EU/dl) 0.2 Ur Leukocyte Esterase (NEG) NEG Ur Microscopic SEDIMENT EXAMINED Urine RBC (0 - 5 /HPF) 1-3 Urine WBC (0 - 2 /HPF) RARE Ur Eosinophil Smear (NONE) NONE Ur Epithelial Cells (NONE,FEW) RARE Urine Bacteria (NEG/NONE) RARE H Hyaline Casts (0/LPF) 1-3 H Urine Mucus (FEW,NONE) RARE Urine Hemoglobin (NEG) SMALL H Urine Glucose (N MG/DL) 100 H 04/03 04/03 1113 1101 Coagulation PT Cancelled INR Cancelled Hematology CBC w Diff MAN DIFF ORDERED WBC (4.8 - 10.8 /CUMM) 16.1 H RBC (4.70 - 6.10 /CUMM) 2.86 L Hgb (14.0 - 18.0 G/DL) 8.9 L Hct (42 - 52 %) 26.5 L MCV (80.0 - 94.0 FL) 92.5 MCH (27.0 - 31.0 PG) 31.1 H MCHC (33.0 - 37.0 G/DL) 33.6 RDW (11.5 - 14.5 %) 13.1 Plt Count (130 - 400 /CUMM) 408 H MPV (7.4 - 10.4 FL) 8.3 Gran % (42.2 - 75.2 %) 93.0 H Lymphocytes % (20.5 - 51.1 %) 3.4 L Monocytes % (1.7 - 9.3 %) 3.1 Eosinophils % (0 - 5 %) 0.1 Basophils % (0.0 - 2.0 %) 0.4 Absolute Granulocytes (1.4 - 6.5 /CUMM) 15.0 H Segmented Neutrophils (42.2 - 75.2 %) 85 H Band Neutrophils (0.0 - 5.0 %) 7 H Absolute Lymphocytes (1.2 - 3.4 /CUMM) 0.5 L Lymphocytes (20.5 - 51.1 %) 3 L Monocytes (1.7 - 9.3 %) 4 Absolute Monocytes (0.10 - 0.60 /CUMM) 0.5 Eosinophils (0 - 5.0 %) 1 Absolute Eosinophils (0.0 - 0.7 /CUMM) 0 Absolute Basophils (0.0 - 0.2 /CUMM) 0.1 Normocytic RBCs VERIFIED Normochromic RBCs VERIFIED 04/03 0845 Chemistry Sodium (137 - 145 mmol/L) 136 L Potassium (3.5 - 5.1 mmol/L) 4.9 Chloride (98 - 107 mmol/L) 98 Carbon Dioxide (22 - 30 mmol/L) 23 Anion Gap (5 - 16) 15 BUN (9 - 20 mg/dL) 33 H Creatinine (0.7 - 1.2 mg/dL) 1.8 H Estimated GFR (>60 ml/min) 38 L BUN/Creatinine Ratio (7 - 25 %) 18.3 Glucose (65 - 99 mg/dL) 265 H Calcium (8.4 - 10.2 mg/dL) 8.1 L Total Bilirubin (0.2 - 1.3 mg/dL) 0.4 Direct Bilirubin (< 0.4 mg/dL) 0.3 AST (17 - 59 U/L) 56 ALT (21 - 72 U/L) 42 Alkaline Phosphatase (< 127 U/L) 72 Troponin I (<0.11 ng/ml) 0.44 *H Total Protein (6.3 - 8.2 g/dL) 5.5 L Albumin (3.5 - 5.0 g/dL) 2.6 L Amylase (30 - 110 U/L) 35 Lipase (23 - 300 U/L) 26 Coagulation PT (9.4 - 12.5 SEC) 13.8 H INR (0.90 - 1.17) 1.32 H Hematology CBC w Diff MAN DIFF ORDERED WBC (4.8 - 10.8 /CUMM) 17.3 H RBC (4.70 - 6.10 /CUMM) 2.86 L Hgb (14.0 - 18.0 G/DL) 8.7 L Hct (42 - 52 %) 26.4 L MCV (80.0 - 94.0 FL) 92.2 MCH (27.0 - 31.0 PG) 30.5 MCHC (33.0 - 37.0 G/DL) 33.1 RDW (11.5 - 14.5 %) 13.4 Plt Count (130 - 400 /CUMM) 406 H MPV (7.4 - 10.4 FL) 8.1 Gran % (42.2 - 75.2 %) 93.2 H Lymphocytes % (20.5 - 51.1 %) 2.5 L Monocytes % (1.7 - 9.3 %) 4.0 Eosinophils % (0 - 5 %) 0 Basophils % (0.0 - 2.0 %) 0.3 Absolute Granulocytes (1.4 - 6.5 /CUMM) 16.1 H Segmented Neutrophils (42.2 - 75.2 %) 86 H Band Neutrophils (0.0 - 5.0 %) 6 H Absolute Lymphocytes (1.2 - 3.4 /CUMM) 0.4 L Lymphocytes (20.5 - 51.1 %) 4 L Monocytes (1.7 - 9.3 %) 4 Absolute Monocytes (0.10 - 0.60 /CUMM) 0.7 H Absolute Eosinophils (0.0 - 0.7 /CUMM) 0 Absolute Basophils (0.0 - 0.2 /CUMM) 0.1 Platelet Estimate (ADEQUATE) VERIFIED BY SMEAR Normocytic RBCs VERIFIED Normochromic RBCs VERIFIED Toxicology Random Vancomycin (ug/ml) 17.3 Assessment/Plan Assessment/Plan 70 y/o male, Hx of DM type 1 diagnosed when he was 14 years old. He was on an insulin pump with basal rate running at 0.9 units per hour in the past. His diabetes was complicated by neuropathy, retinopathy, nephropathy. Patient presented to the ED after sustaining an unwitnessed fall. He was admitted for positive troponin, ongoing right foot infection and gangrene of 2nd toe and 3rd toe. Currently he has been kept NPO. plan: 1. start D5 1/2 NS at 75 ml/ hour; 2. start Levemir 5 units twice a day; 3. start Novolog coverage every 4 hours; detail see the inpatient DM order; 4. monitor FSGs and electrolytes; will follow. Please inform me if he is going to eat meals and then his DM regimen will be adjusted accordingly. Inpatient Diabetes Orders Every 4 Hours: Bolus Insulin: Novolog < 80 mg/dl: no coverage 80-100 mg/dl: no coverage 101-120 mg/dl: no coverage 121-150 mg/dl: no coverage 151-200 mg/dl: 2 units 201-250 mg/dl: 4 units 251-300 mg/dl: 6 units 301-350 mg/dl: 8 units 351-400 mg/dl: 9 units > 400 mg/dl: 10 units Consult Acknowledgment - Thank you for your consult request.
--- NOTE | 2017-04-03 17:01 | ULTRASOUND REPORT ---
EXAMINATION: RIGHT UPPER EXTREMITY VENOUS DOPPLER ULTRASOUND CLINICAL INFORMATION: Right arm swelling. Rule out DVT. COMPARISON: None. TECHNIQUE: Doppler spectral analysis and color flow Doppler imaging was performed of the upper extremity. Compression and augmentation maneuvers were performed. FINDINGS: A PICC line is seen extending from the right basilic vein into the subclavian vein. The right internal jugular vein, proximal brachiocephalic vein, subclavian vein and axillary veins are all patent with normal color flow and phasic changes seen. The paired brachial veins are only visualized in the proximal arm, where they have found to be patent with normal color flow and compressibility seen. The mid and distal brachial veins cannot be seen due to a bandage obscuring this region. At the antecubital fossa, the brachial veins are visualized and are patent. The proximal and distal basilic vein are visualized and are patent. The mid basilic vein is obscured by the patient's bandage. The cephalic vein is patent. The proximal radial and ulnar veins are not imaged. IMPRESSION: 1. The veins in the mid arm could not be studied due to patient's bandage. The visualized veins, as discussed above, are all patent with no evidence of deep venous thrombosis seen. Depending on clinical circumstances, repeat imaging could be performed after removing the patient's bandage to complete the assessment. 2. PICC line catheter seen extending from the right basilic vein into the subclavian vein with tip not visualized.
--- NOTE | 2017-04-03 22:15 | RADIOLOGY REPORT ---
EXAMINATION: XR PORTABLE CHEST CLINICAL INFORMATION: Fall. COMPARISON: Prior chest March [address] chest April 03 2017 at 6:58 AM.. TECHNIQUE: Portable frontal view of the chest was obtained. FINDINGS: Right lower lobe and right upper lobe patchy opacities unchanged compared with CT performed same day. Right pleural effusion noted previously not conspicuous. Subtle opacity at the left base likely due to a combination of atelectasis and effusion. Pacer leads intact. Degenerative changes of the acromioclavicular joints. IMPRESSION: No change compared with CT performed earlier same day. Airspace disease and effusions more conspicuous on CT.
[2017-04-03 23:27] VITALS: BP 134/62
[2017-04-04 06:59] VITALS: BP 164/70
[2017-04-04 08:25] LABS: ABSOLUTE BASOPHIL COUNT 0 /CUMM (0.0-0.2); ABSOLUTE EOSINOPHIL COUNT 0.1 /CUMM (0.0-0.7); ABSOLUTE GRANULOCYTE CT 13.1 /CUMM (1.4-6.5); ABSOLUTE LYMPH COUNT 1.1 /CUMM (1.2-3.4); ABSOLUTE MONOCYTE COUNT 0.7 /CUMM (0.10-0.60); BASOPHIL % 0.2 % (0.0-2.0); EOSINOPHIL % 0.7 % (0-5); HEMATOCRIT 27.7 % (42-52); MEAN CORPUSCULAR HGB 31.1 PG (27.0-31.0); MEAN CORPUSCULAR HGB CONC 33.8 G/DL (33.0-37.0); MEAN CORPUSCULAR VOLUME 92.2 FL (80.0-94.0); MEAN PLATELET VOLUME 8.6 FL (7.4-10.4); PLATELET COUNT 484 /CUMM (130-400); RBC DISTRIBUTION WIDTH 13.8 % (11.5-14.5); RED BLOOD CELL CT 3.01 /CUMM (4.70-6.10); WHITE BLOOD CELL COUNT 15.1 /CUMM (4.8-10.8)
--- NOTE | 2017-04-04 09:33 | PN- Housestaff ---
[place] 04/04/17 0933: Subjective Follow-up For: Syncope Elevated troponin Tele-Events Since Last Visit: SCierrakhadijah, 99-110 Subjective: The patient was seen and examined this morning. Earlier in the morning he was agitated and required [place]. Later on he developed tachypnea to 40s, oxygen requirements increased also developed nausea. He denied any dizziness, lightheadedness, difficulty breathing, chest pain. Troponin peaked to 6.64 now trending down. Patient's son who is present at bedside states that patient has becoming more forgetful recently. Review of Systems Constitutional: Reports: no symptoms. Objective Last 24 Hrs of Vital Signs/I&O Vital Signs Date Time Temp Pulse Resp B/P B/P Pulse O2 O2 Flow FiO2 Mean Ox Delivery Rate 04/04 1449 91 Nasal 7.0L Cannula 04/04 1137 103 154/00 04/04 1136 103 154/00 04/04 0659 97.4 108 20 164/70 94 Nasal Cannula 04/04 0000 Nasal 4.0L Cannula 04/03 2327 97.9 87 26 134/62 93 Nasal 4.0L Cannula 04/03 1728 89 130/60 Intake & Output 04/04 1600 04/04 0800 04/04 0000 Intake Total 600 600 Output Total 400 750 Balance 200 -150 Intake, IV 600 600 Intake, Oral 0 0 Number 1 1 Bowel Movements Output, Urine 400 750 Physical Exam General Appearance: Mild Distress Skin: Right forearm ecchymosis and swelling. Sepsis Skin Exam (color): Normal for Ethnicity HEENT: Atraumatic, PERRLA, EOMI, Mucous Membr. moist/pink Neck: Supple Cardiovascular: Regular Rate, Normal S1, Normal S2, sys murmur Lungs: Clear to Auscultation, Normal Air Movement Abdomen: Normal Bowel Sounds, Soft, No Tenderness Extremities: PICC line inplace RUE, Right foot wound VAC inplace, necrotic 2nd and 3rd toes Vascular: Normal Pulses, Pulses Symmetrical Current Medications: Current Medications Sig/Coral Start time Last Medication Dose Route Stop Time Status Admin Acetaminophen 500 MG TID 04/03 1156 AC 04/04 PO 1559 Amlodipine Besylate 5 MG DAILY 04/03 1200 AC 04/04 PO 1136 Aspirin 81 MG DAILY 04/04 1000 AC 04/04 PO 1346 Atorvastatin Calcium 40 MG 1700 04/03 1700 AC 04/03 PO 1734 Ceftazidime 1,000 MG 1600,0400 04/04 1600 AC IV Dextrose/Sodium 1,000 ML Q13H 04/03 1645 DC 04/04 Chloride IV 0600 Fluticasone 2 SPRAY DAILY 04/03 1155 AC 04/04 Propionate THOMAS 1136 Furosemide 20 MG ONCE ONE 04/04 1615 DC IV 04/04 1616 Heparin Sodium 5,000 UNIT Q8 04/03 1400 AC 04/04 (Porcine) SC 1345 Insulin Aspart 0 Q4 04/03 1800 AC 04/04 SC 1345 Insulin Detemir 8 UNITS BID 04/04 2200 AC SC Insulin Detemir 5 UNITS BID 04/03 1645 DC 04/04 SC 1137 Insulin Human Regular 0 Q6 04/03 1200 DC 04/03 SC 1144 Metoprolol Succinate 25 MG DAILY 04/03 1714 AC 04/04 PO 1137 Morphine Sulfate 2 MG Q4P PRN 04/03 1100 DC IV Pregabalin 50 MG TID 04/03 1155 AC 04/04 PO 1559 Vancomycin HCl 1,000 MG ONCE ONE 04/04 0945 DC 04/04 Dextrose/Water 250 ML IV 04/04 1044 1126 Last 24 Hrs of Lab/Frans[place] Results Last 24 Hrs of Labs/Mics: Laboratory Tests 04/04/17 1420: pH 7.47 H, pCO2 33 L, pO2 54 L, HCO3 23, ABG O2 Sat (Measured) 87.0 L, P-50 (Temp Corrected) N, Carboxyhemoglobin 0.1 L, O2 Concentration % 5L, Temperature 97.4, O2 Delivery Method N/C, Phlebotomy Draw Site L BRACHIAL 04/04/17 1400: Anion Gap 13, Estimated GFR 50 L, Glucose 302 H, Calcium 8.5, Phosphorus 4.0, Magnesium 2.2, Total Bilirubin 0.6, AST 90 H, ALT 50, Troponin I 2.02 *H, Pro-B -Natriuretic Pept 16484 H, Albumin 3.2 L, Acetone Level NEGATIVE 04/04/17 0601: Anion Gap 12, Estimated GFR 50 L, BUN/Creatinine Ratio 27.1 H, Magnesium 2.2, Troponin I 3.81 *H, CBC w Diff NO MAN DIFF REQ, RBC 3.01 L, MCV 92.2, MCH 31.1 H, MCHC 33.8, RDW 13.8, MPV 8.6, Gran % 87.2 H, Lymphocytes % 7.6 L, Monocytes % 4.3, Eosinophils % 0.7, Basophils % 0.2, Absolute Granulocytes 13.1 H, Absolute Lymphocytes 1.1 L, Absolute Monocytes 0.7 H, Absolute Eosinophils 0.1 , Absolute Basophils 0, Random Vancomycin 10.2 04/04/17 0016: Troponin I 6.64 *H 04/03/17 2145: Troponin I Cancelled 04/03/17 1725: Troponin I 6.11 *H Microbiology 04/04 1513 UPPER RESP: Surveillance Culture - COLB 04/04 1512 GI: Surveillance Culture - COLB Assessment/Plan Assessment: This is a 71-year-old male with past medical history significant for hypertension, hyperlipidemia, diabetes on insulin pump, status post pacemaker placement with recent admission on March 18 requiring toe amputation, significant peripheral vascular disease requiring SFA atherectomy and diagnosis of MRSA osteomyelitis requiring PICC line placement for prolonged antibiotics discharged on 03/30/2017 who is admitted to the hospital for workup of unwitnessed fall, high white count with bandemia, acute kidney injury and elevated troponins. Assessment/plan: #Possible ACS: * A troponin peaking to 6.64 overnight. * Denies chest pain * Developed tachypnea, desaturation noted to be in mild distress also had nausea , will check another set of troponin and EKG. * Will check ABG * Cardiology aware * Meanwhile was transferred to ICU for closer monitoring #Syncope: * Continue groundwater monitoring technician. * Cardiology consult * Echocardiogram. * Monitor orthostatics #Osteomyelitis, MRSA: * Has remained afebrile * Leukocytosis improving * Follow ID recommendations * Follow podiatry recommendations #Acute kidney injury: * Prerenal versus AIN versus Vanco nephrotoxicity. * No CT evidence of obstruction. Hold fluid for now, given CT evidence of moderate pleural effusions. * Losartan held. #Diabetes. * Follow endocrinology recommendations * Levemir 8 twice a day * Sliding scale #Peripheral vascular disease: * Obtain vascular consult. #DNR #Heparin for DVT prophylaxis. Problem List: 1. Osteomyelitis 2. PARRIS (acute kidney injury) 3. Syncope Pain Ratin Pain Location: NA Pain Goal: Remain pain free Pain Plan: NA Tomorrow's Labs & Rationales: HONEY Vicente MD,Theo 04/04/17 2200: Attending MD Review Statement Attending Statement Attending MD Statement: examined this patient, discuss w/resident/PA/AIRCRAFT LINE ASSEMBLER, agreed w/resident/PA/AIRCRAFT LINE ASSEMBLER, discussed with family, reviewed EMR data (avail), discussed with nursing, reviewed images, amended to note Attending Assessment/Plan: The patient was seen and discussed with house staff and son. Appreciate Cardiology, Endocrinology follow-up. Transferred to ICU for closer monitoring with increased oxygen demand, elevated troponin levels. Agree with Lasix and follow closely.
[2017-04-04 10:02] LABS: GRANULOCYTE % 87.2 % (42.2-75.2)
--- NOTE | 2017-04-04 14:46 | ULTRASOUND REPORT ---
EXAMINATION: US TRIPLEX UPPER EXTREMITY, RIGHT CLINICAL INFORMATION: Right upper extremity PICC line was removed this morning. Patient complaining of right arm swelling. COMPARISON: 04/03/2017 TECHNIQUE: Color-flow triplex imaging with spectral analysis and compression Doppler were performed on the upper extremity. FINDINGS: There has been interval removal of the PICC line from the patient's right upper extremity. Although the bandage is still in place, partially obscuring the mid brachial and basilic veins, examination immediately above and immediately below the bandage demonstrated normal compressibility. Color and Duplex Doppler sonography of the deep venous system of the right upper extremity was performed. The right internal jugular, axillary and cephalic veins are easily compressible. These segments, as well as the right subclavian vein, are also color Doppler patent. IMPRESSION: No evidence of deep venous thrombosis involving the right upper extremity. Portions of the basilic and brachial veins was obscured by the patient's bandaging, however examination of the veins of both above and below the bandage indicated patency and normal compressibility.
--- NOTE | 2017-04-04 15:11 | PN- Diabetes ---
Assessment/Plan Assessment: 70 y/o male, Hx of DM type 1 diagnosed when he was 14 years old. He was on an insulin pump with basal rate running at 0.9 units per hour in the past. His diabetes was complicated by neuropathy, retinopathy, nephropathy. Patient presented to the ED after sustaining an unwitnessed fall. He was admitted for positive troponin with peak troponin of 6.64, ongoing right foot infection and gangrene of 2nd toe and 3rd toe. He appears some SOB this morning. He is on D51/2 NS at 100 ml/hour, Levemir 5 units twice a day and Novolog coverage every 4 hours. His FSGs were 151, 178 and 307. Plan: 1. increase Levemir to 8 units twice a day; 2. adjust Novolog coverage every 4 hours; 3. monitor FSGs. will follow. Inpatient Diabetes Orders Every 4 Hours: Bolus Insulin: Novolog < 80 mg/dl: no coverage 80-100 mg/dl: no coverage 101-120 mg/dl: no coverage 121-150 mg/dl: no coverage 151-200 mg/dl: 3 units 201-250 mg/dl: 5 units 251-300 mg/dl: 7 units 301-350 mg/dl: 9 units 351-400 mg/dl: 11 units > 400 mg/dl: 13 units Subjective Subjective: He feels okay. He is still kept NPO. Objective Last 24 Hrs of Vital Signs/I&O Vital Signs Date Time Temp Pulse Resp B/P B/P Pulse O2 O2 Flow FiO2 Mean Ox Delivery Rate 04/04 1449 91 Nasal 7.0L Cannula 04/04 1137 103 154/00 04/04 1136 103 154/00 04/04 0659 97.4 108 20 164/70 94 Nasal Cannula 04/04 0000 Nasal 4.0L Cannula 04/03 2327 97.9 87 26 134/62 93 Nasal 4.0L Cannula 04/03 1728 89 130/60 Intake & Output 04/04 1600 04/04 0800 04/04 0000 Intake Total 600 600 Output Total 400 750 Balance 200 -150 Intake, IV 600 600 Intake, Oral 0 0 Number 1 1 Bowel Movements Output, Urine 400 750 Physical Exam Respiratory: decreased breath sounds (at bases)
--- NOTE | 2017-04-04 15:40 | RADIOLOGY REPORT ---
EXAMINATION: XR PORTABLE CHEST CLINICAL INFORMATION: Pulmonary edema or pneumonia COMPARISON: 04/03/2017 TECHNIQUE: Portable frontal view of the chest was obtained. FINDINGS: Redemonstration of infiltrates consolidation RIGHT upper lobe more dense on today's exam. There is mild vascular congestion, could be mild interstitial edema, small LEFT pleural effusion obscuring LEFT costophrenic angle, cardiac device projecting over the RIGHT hemithorax unchanged. IMPRESSION: Progression RIGHT upper lobe infiltrate presumably pneumonia. Probably underlying vascular congestion, interstitial edema an small LEFT pleural effusion.
--- NOTE | 2017-04-04 16:52 | Event Note ---
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 No evidence of prodromal symptoms. At the time of admission, vitals-temperature 97.6, pulse rate 83, blood pressure 131/58, 93% on 4-6 L. Lab findings indicated to PBC 17.3, platelets 406, hemoglobin at 8.7, serum creatinine 1.8. Troponins peaked at 6.64. EKG was very unclear to delineate ST depressions, since he was paced. CT scan chest indicated groundglass opacities, but did not have any clear consolidation suggestive of pneumonia at that time. During the hospital stay on telemetry floor, he remained afebrile, but he was persistently tachycardic and required increased oxygen; which went up to approximately 7 L. He did not have any chest pain, palpitations or altered mentation. An ICU transfer was initiated, when he was persistently tachypneic and remained hypoxemic. Troponin was drawn prior to ICU transfer which was 2.02 , and EKG did not reveal any new ST changes(Discussed with Dr. Sandy). Upon evaluation, he appeared to be in mild distress, and was clearly tachycardic and tachypneic. Labs including ICU bundle, proBNP, acetone were drawn, and chest x-ray ordered. --- Review of labs revealed improving white count, 17.3--> 15.1 with improving kidney function serum creatinine 1.8--> 1.4, proBNP [id number]. Chest x-ray revealed changes suggestive of right upper lobe opacity questionable consolidation, and worsening interstitial edema. Etiology in his case was thought to be likely fluid overload or possible congestive heart failure, pulmonary embolism secondary to prolonged immobility, pneumonia. Received 2 L of D5 half-normal saline since admission, and has not being diuresed so far. PE is in the differential, however lower extremity DVTs could not be done due to unavailability; we'll try to obtain a VQ scan on Thursday or CTA if symptoms persist, and kidney function improves. In regards to right upper lobe opacity, healthcare associated pneumonia could be in the differential. Plan: #1 Respiratory- continue the patient on nasal cannula, to maintain oxygen saturation above 92%. #2 Infectious- Continue to monitor WBC, and vitals closely. For questionable pneumonia, and considering his acute change in respiratory status, we could possibly treat him with ceftazidime. Discussed w/ Dr. Hyman. For gangrene right foot, would defer the decision to podiatry for further managment. #3 Circulatory- Trops peaked at 6.5. No new EKG changes. He should be diuresed w / lasix 20mg, since he is lasix naive. Would repeat another dose of lasix depending upon the response, and repeat BEP. #4 Metabolic- D51/2 NS has been discontinued. He is currently on a diet; and would change the insulin sliding scale to TIDAC/HS. also increased the dose of Levemir from 8 units twice a day to 10 units twice a day. Discussed with Dr. covarrubias. In regards to his renal function, shows improvement compared to yesterday, but would watch it closely. Repeat BEP in the pm, to check K and Cr. Housekeepin. DVT PPx- heparin sc 2. Code status- changed to DNR/DNI after discussing with the pt, and the pts son Lester. Informed the attending.
--- NOTE | 2017-04-04 19:54 | PN- Cardiology ---
Subjective Subjective: Agitated. Denies chest discomfort, palpitations, shortness of breath, etc. Objective Vital Signs and I&Os Vital Signs Date Time Temp Pulse Resp B/P B/P Pulse O2 O2 Flow FiO2 Mean Ox Delivery Rate 04/04 1449 91 Nasal 7.0L Cannula 04/04 1137 103 154/00 04/04 1136 103 154/00 04/04 0800 94 Nasal 4.0L Cannula 04/04 0659 97.4 108 20 164/70 94 Nasal Cannula 04/04 0000 Nasal 4.0L Cannula 04/03 2327 97.9 87 26 134/62 93 Nasal 4.0L Cannula Intake & Output 04/04 1600 04/04 0800 04/04 0000 04/03 1600 04/03 0800 04/03 0000 Intake Total 355 600 600 Output Total 400 400 750 300 Balance -45 200 -150 -300 Intake, IV 325 600 600 Intake, Oral 30 0 0 Number 1 1 Bowel Movements Output, Urine 400 400 750 300 Patient 180 lb Weight Physical Exam: Well-developed, well-nourished elderly male who is agitated with nasal oxygen in place. Vital signs: See above. Lungs: Decreased breath sounds occasional rhonchi. Heart: S1, S2 with soft systolic murmur. Abdomen: Soft, nontender, positive bowel sounds. Extremities: Bandaged right foot with gangrenous toes observed. Current Medications: Current Medications Sig/Coral Start time Last Medication Dose Route Stop Time Status Admin Acetaminophen 500 MG TID 04/03 1156 AC 04/04 PO 1559 Amlodipine Besylate 5 MG DAILY 04/03 1200 AC 04/04 PO 1136 Aspirin 81 MG DAILY 04/04 1000 AC 04/04 PO 1346 Atorvastatin Calcium 40 MG 1700 04/03 1700 AC 04/04 PO 1748 Ceftazidime 1,000 MG 1600,0400 04/04 1600 AC 04/04 IV 1748 Dextrose/Sodium 1,000 ML Q13H 04/03 1645 DC 04/04 Chloride IV 0600 Fluticasone 2 SPRAY DAILY 04/03 1155 AC Propionate THOMAS Furosemide 20 MG ONCE ONE 04/04 1745 DC 04/04 IV 04/04 1746 1748 Furosemide 20 MG ONCE ONE 04/04 1615 DC 04/04 IV 04/04 1616 1647 Heparin Sodium 5,000 UNIT Q8 04/03 1400 AC 02/10 (Porcine) SC 1345 Insulin Aspart 0 TIDAC/HS 04/04 2100 AC SC Insulin Aspart 0 Q4 04/03 1800 DC 04/04 SC 1748 Insulin Detemir 8 UNITS BID 04/04 2200 DC SC Insulin Detemir 10 UNITS BID 04/04 2200 AC SC Insulin Detemir 5 UNITS BID 04/03 1645 DC 04/04 SC 1137 Lorazepam 0.5 MG ONE ONE 04/04 1745 DC 04/04 PO 04/04 1746 1748 Metoprolol Succinate 25 MG DAILY 04/03 1714 AC 04/04 PO 1137 Morphine Sulfate 2 MG Q4P PRN 04/04 1845 AC 04/04 IV 1854 Morphine Sulfate 2 MG Q4P PRN 04/03 1100 DC IV Olanzapine 5 MG ONCE PRN 04/04 1915 AC IM 04/04 2300 Pregabalin 50 MG TID 04/03 1155 AC 04/04 PO 1559 Vancomycin HCl 1,000 MG ONCE ONE 04/04 0945 DC 04/04 Dextrose/Water 250 ML IV 04/04 1044 1126 Results Last 48 Hrs of Labs/Mics: Laboratory Tests 04/04/17 1420: pH 7.47 H, pCO2 33 L, pO2 54 L, HCO3 23, ABG O2 Sat (Measured) 87.0 L, P-50 (Temp Corrected) N, Carboxyhemoglobin 0.1 L, O2 Concentration % 5L, Temperature 97.4, O2 Delivery Method N/C, Phlebotomy Draw Site L BRACHIAL 04/04/17 1400: Anion Gap 13, Estimated GFR 50 L, Glucose 302 H, Calcium 8.5, Phosphorus 4.0, Magnesium 2.2, Total Bilirubin 0.6, AST 90 H, ALT 50, Troponin I 2.02 *H, Pro-B -Natriuretic Pept 82264 H, Albumin 3.2 L, Acetone Level NEGATIVE 04/04/17 0601: Anion Gap 12, Estimated GFR 50 L, BUN/Creatinine Ratio 27.1 H, Magnesium 2.2, Troponin I 3.81 *H, CBC w Diff NO MAN DIFF REQ, RBC 3.01 L, MCV 92.2, MCH 31.1 H, MCHC 33.8, RDW 13.8, MPV 8.6, Gran % 87.2 H, Lymphocytes % 7.6 L, Monocytes % 4.3, Eosinophils % 0.7, Basophils % 0.2, Absolute Granulocytes 13.1 H, Absolute Lymphocytes 1.1 L, Absolute Monocytes 0.7 H, Absolute Eosinophils 0.1 , Absolute Basophils 0, Random Vancomycin 10.2 04/04/17 0016: Troponin I 6.64 *H 04/03/17 2145: Troponin I Cancelled 04/03/17 1725: Troponin I 6.11 *H 04/03/17 1150: Ur Eosinophil Smear NONE 04/03/17 1150: Urinalysis MOD H, Urine Color YEL, Urine Clarity HAZY H, Urine pH 6.0, Ur Specific [place] 1.025, Urine Protein TRACE H, Urine Ketones NEG, Urine Nitrite NEG, Urine Bilirubin NEG, Urine Urobilinogen 0.2, Ur Leukocyte Esterase NEG, Ur Microscopic SEDIMENT EXAMINED, Urine RBC 1-3, Urine WBC RARE, Ur Epithelial Cells RARE, Urine Bacteria RARE H, Hyaline Casts 1-3 H, Urine Mucus RARE, Urine Hemoglobin SMALL H, Urine Glucose 100 H 04/03/17 1113: CBC w Diff MAN DIFF ORDERED, RBC 2.86 L, MCV 92.5, MCH 31.1 H, MCHC 33.6, RDW 13.1, MPV 8.3, Gran % 93.0 H, Lymphocytes % 3.4 L, Monocytes % 3.1, Eosinophils % 0.1, Basophils % 0.4, Absolute Granulocytes 15.0 H, Segmented Neutrophils 85 H, Band Neutrophils 7 H, Absolute Lymphocytes 0.5 L, Lymphocytes 3 L, Monocytes 4, Absolute Monocytes 0.5, Eosinophils 1, Absolute Eosinophils 0, Absolute Basophils 0.1, Normocytic RBCs VERIFIED, Normochromic RBCs VERIFIED 04/03/17 1101: PT Cancelled, INR Cancelled 04/03/17 0845: Anion Gap 15, Estimated GFR 38 L, BUN/Creatinine Ratio 18.3, Glucose 265 H, Calcium 8.1 L, Total Bilirubin 0.4, Direct Bilirubin 0.3, AST 56, ALT 42, Alkaline Phosphatase 72, Troponin I 0.44 *H, Total Protein 5.5 L, Albumin 2.6 L, Amylase 35, Lipase 26, PT 13.8 H, INR 1.32 H, CBC w Diff MAN DIFF ORDERED, RBC 2.86 L, MCV 92.2, MCH 30.5, MCHC 33.1, RDW 13.4, MPV 8.1, Gran % 93.2 H, Lymphocytes % 2.5 L, Monocytes % 4.0, Eosinophils % 0, Basophils % 0.3, Absolute Granulocytes 16.1 H, Segmented Neutrophils 86 H, Band Neutrophils 6 H, Absolute Lymphocytes 0.4 L, Lymphocytes 4 L, Monocytes 4, Absolute Monocytes 0.7 H, Absolute Eosinophils 0, Absolute Basophils 0.1, Platelet Estimate VERIFIED BY SMEAR, Normocytic RBCs VERIFIED, Normochromic RBCs VERIFIED , Random Vancomycin 17.3 Recent Imaging Studies: CXR 04/04/2017: Progression RIGHT upper lobe infiltrate presumably pneumonia. Probably underlying vascular congestion, interstitial edema an small LEFT pleural effusion. Assessment/Plan Assessment/Plan [id number] w/ hx HTN, HLD, DM w/ neuropathy, retinopathy, nephropathy, on insulin pump, conduction disease (ppm for CHB 2009) & PVD (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 On telemetry , he remained afebrile, but was persistently tachycardic, tachypnea , and hypoxemic w/ increasing oxygen demand which prompted ICU transfer. A troponin was drawn prior to transfer & returned positive at 2.02 w/o significant electrocardiographic changes from his abnormal baseline (ventricular paced rhythm). Continue telemetry? Not applicable (In ICU.)
[2017-04-04 20:00] VITALS: BP 102/58
[2017-04-05] VITALS: BP 112/64
[2017-04-05 05:31] LABS: ABSOLUTE BASOPHIL COUNT 0 /CUMM (0.0-0.2); ABSOLUTE EOSINOPHIL COUNT 0 /CUMM (0.0-0.7); ABSOLUTE GRANULOCYTE CT 10.3 /CUMM (1.4-6.5); ABSOLUTE LYMPH COUNT 0.9 /CUMM (1.2-3.4); ABSOLUTE MONOCYTE COUNT 0.5 /CUMM (0.10-0.60); BASOPHIL % 0.2 % (0.0-2.0); EOSINOPHIL % 0 % (0-5); GRANULOCYTE % 87.7 % (42.2-75.2); HEMATOCRIT 23.5 % (42-52); MEAN CORPUSCULAR HGB 30.7 PG (27.0-31.0); MEAN CORPUSCULAR HGB CONC 33.2 G/DL (33.0-37.0); MEAN CORPUSCULAR VOLUME 92.6 FL (80.0-94.0); MEAN PLATELET VOLUME 8.6 FL (7.4-10.4); PLATELET COUNT 408 /CUMM (130-400); RBC DISTRIBUTION WIDTH 13.5 % (11.5-14.5); RED BLOOD CELL CT 2.54 /CUMM (4.70-6.10)
[2017-04-05 06:11] LABS: WHITE BLOOD CELL COUNT 11.7 /CUMM (4.8-10.8)
--- NOTE | 2017-04-05 08:47 | PN- Infect Dx ---
Subjective Subjective: Afebrile. He was transferred into the ICU yesterday because of increasing respiratory distress, requiring a partial rebreather. He was apparently increasingly agitated and confused last evening, requiring restraints, and he was given Morphine and Ativan. A Land was inserted and he was noted to have hematuria with clots. Objective Last 24 Hrs of Vital Signs/I&O Vital Signs Date Time Temp Pulse Resp B/P B/P Pulse O2 O2 Flow FiO2 Mean Ox Delivery Rate 04/05 0354 94 Part 60% ReBreather 04/05 0000 96 Part 60% ReBreather 04/05 0000 97.6 100 32 112/64 96 Part 60% ReBreather 04/04 1999 90 Nasal 8L Cannula 04/04 1999 97.4 92 28 102/58 90 Nasal 8L Cannula 04/04 1600 91 Nasal 8L Cannula 04/04 1449 91 Nasal 7.0L Cannula 04/04 1137 103 154/00 04/04 1136 103 154/00 Intake & Output 04/05 1600 04/05 0800 04/05 0000 Intake Total 0 10 Output Total 170 365 Balance -170 -355 Intake, Oral 0 10 Number 0 0 Bowel Movements Output, Urine 170 365 Physical Exam Other Physical Findings: He is minimally responsive, status post sedation, with a partial rebreather in place Lungs rhonchi on the right Heart regular rhythm with no murmur Abdomen is soft, nontender with positive bowel sounds Extremities necrotic right second and third toes with dressing in place over the right foot; PICC in the right upper extremity with no inflammation at the site Land catheter is in place Results Last 24 Hours of Lab Results: Laboratory Tests 04/05 04/04 04/04 0435 2332 1420 Blood Gas pH (7.35 - 7.45 PH) 7.47 H pCO2 (35 - 45 TORR) 33 L pO2 (80 - 100 TORR) 54 L HCO3 (21 - 28 MEQ/L) 23 ABG O2 Sat (Measured) (>96.0 %) 87.0 L P-50 (Temp Corrected) N Carboxyhemoglobin (1.5 - 5.0 %) 0.1 L O2 Concentration % 5L Temperature (97.0 - 100.0 FARH) 97.4 O2 Delivery Method N/C Chemistry Sodium (137 - 145 mmol/L) 139 138 Potassium (3.5 - 5.1 mmol/L) 5.5 H 4.6 Chloride (98 - 107 mmol/L) 100 98 Carbon Dioxide (22 - 30 mmol/L) 27 27 Anion Gap (5 - 16) 12 12 BUN (9 - 20 mg/dL) 50 H 47 H Creatinine (0.7 - 1.2 mg/dL) 1.8 H 1.6 H Estimated GFR (>60 ml/min) 38 L 43 L BUN/Creatinine Ratio (7 - 25 %) 29.4 H Glucose (65 - 99 mg/dL) 177 H Calcium (8.4 - 10.2 mg/dL) 8.4 Phosphorus (2.5 - 4.5 mg/dL) 4.2 Magnesium (1.6 - 2.3 mg/dL) 2.2 Total Bilirubin (0.2 - 1.3 mg/dL) 0.6 AST (17 - 59 U/L) 74 H ALT (21 - 72 U/L) 51 Albumin (3.5 - 5.0 g/dL) 2.9 L Hematology CBC w Diff NO MAN DIFF REQ WBC (4.8 - 10.8 /CUMM) 11.7 H RBC (4.70 - 6.10 /CUMM) 2.54 L Hgb (14.0 - 18.0 G/DL) 7.8 L Hct (42 - 52 %) 23.5 L MCV (80.0 - 94.0 FL) 92.6 MCH (27.0 - 31.0 PG) 30.7 MCHC (33.0 - 37.0 G/DL) 33.2 RDW (11.5 - 14.5 %) 13.5 Plt Count (130 - 400 /CUMM) 408 H MPV (7.4 - 10.4 FL) 8.6 Gran % (42.2 - 75.2 %) 87.7 H Lymphocytes % (20.5 - 51.1 %) 7.4 L Monocytes % (1.7 - 9.3 %) 4.7 Eosinophils % (0 - 5 %) 0 Basophils % (0.0 - 2.0 %) 0.2 Absolute Granulocytes (1.4 - 6.5 /CUMM) 10.3 H Absolute Lymphocytes (1.2 - 3.4 /CUMM) 0.9 L Absolute Monocytes (0.10 - 0.60 /CUMM) 0.5 Absolute Eosinophils (0.0 - 0.7 /CUMM) 0 Absolute Basophils (0.0 - 0.2 /CUMM) 0 Miscellaneous Phlebotomy Draw Site L BRACHIAL Toxicology Random Vancomycin (ug/ml) 14.7 04/04 1400 Chemistry Sodium (137 - 145 mmol/L) 135 L Potassium (3.5 - 5.1 mmol/L) 5.4 H Chloride (98 - 107 mmol/L) 97 L Carbon Dioxide (22 - 30 mmol/L) 24 Anion Gap (5 - 16) 13 BUN (9 - 20 mg/dL) 45 H Creatinine (0.7 - 1.2 mg/dL) 1.4 H Estimated GFR (>60 ml/min) 50 L Glucose (65 - 99 mg/dL) 302 H Calcium (8.4 - 10.2 mg/dL) 8.5 Phosphorus (2.5 - 4.5 mg/dL) 4.0 Magnesium (1.6 - 2.3 mg/dL) 2.2 Total Bilirubin (0.2 - 1.3 mg/dL) 0.6 AST (17 - 59 U/L) 90 H ALT (21 - 72 U/L) 50 Troponin I (<0.11 ng/ml) 2.02 *H [id number] Pept (<125 pg/mL) 39349 H Albumin (3.5 - 5.0 g/dL) 3.2 L Toxicology Acetone Level (NEGATIVE) NEGATIVE Last 24 Hours of [place] Results: Urine culture April 03 negative Urine culture April 04 negative Recent Imaging Studies: Chest x-ray April 04 increased right upper lobe density with mild vascular congestion and a small left pleural effusion Doppler of the right upper extremity 2 no obvious DVT but limited by the presence of a bandage in both studies Assessment/Plan Impression: Worsening respiratory status, possibly secondary to an aspiration pneumonia, with an increased density in the right upper lobe on chest x-ray, versus CHF. He remains afebrile with white blood cell count decreased today on Ceftazidime, added yesterday for possible aspiration pneumonia, and Vancomycin, which must be dosed prn given his worsening renal insufficiency, now 12 days status post revisional partial first ray resection of the right foot, with progression of gangrene to involve the second and third toes of the right foot, with plans for a right transmetatarsal amputation this week. His renal insufficiency may be multifactorial and requires further evaluation. His troponin has peaked at 6.64 and is decreasing. Suggestion: 1. Attempt to obtain a sputum culture 2. Renal evaluation 3. Further management of his fluid status per Cardiology 4. Await right transmetatarsal amputation 5. Consider need for Vascular surgery per Podiatry 6. Redose with Vancomycin 1 g IV 1 today and recheck a random Vancomycin level in the a.m.
--- NOTE | 2017-04-05 10:39 | PN- Diabetes ---
Assessment/Plan Assessment: 70 y/o male, Hx of DM type 1 diagnosed when he was 14 years old. He was on an insulin pump with basal rate running at 0.9 units per hour in the past. His diabetes was complicated by neuropathy, retinopathy, nephropathy. Patient presented to the ED after sustaining an unwitnessed fall. He was admitted for positive troponin with peak troponin of 6.64, ongoing right foot infection and gangrene of 2nd toe and 3rd toe. He was transfered to ICU for SOB. IVF was discontinued and he is on high flow oxygen. His po intake has been poor. Currently he is on Levemir 8 units twice a day, Novolog coverage before meals and Novolog coverage at bedtime. His FSGs were 265 , 84, 185, 218 and 292. Levemir last night was held because his glucose level was only 84 at bedtime. His po intake has been poor. Plan: 1. decrease Levemir to 6 units twice a day; 2. adjust Novolog coverage before meals; detail see the inpatient DM orders; 3. continue the current Novolog coverage at bedtime; 4. monitor FSGs; monitor elecreolytes; 5. as per team, nephrology consult was called will follow. Subjective Subjective: His po intake has been poor. Objective Last 24 Hrs of Vital Signs/I&O Vital Signs Date Time Temp Pulse Resp B/P B/P Pulse O2 O2 Flow FiO2 Mean Ox Delivery Rate 04/05 0940 113 130/60 04/05 0939 113 130/60 04/05 0845 93 Nasal 65% Cannula 04/05 08 Part ReBreather 04/05 0354 94 Part 60% ReBreather 04/05 0000 96 Part 60% ReBreather 04/05 0000 97.6 100 32 112/64 96 Part 60% ReBreather 04/04 1999 90 Nasal 8L Cannula 04/04 1999 97.4 92 28 102/58 90 Nasal 8L Cannula 04/04 1600 91 Nasal 8L Cannula 04/04 1449 91 Nasal 7.0L Cannula 04/04 1137 103 154/00 04/04 1136 103 154/00 Intake & Output 04/05 1600 04/05 0800 04/05 0000 Intake Total 0 10 Output Total 170 365 Balance -170 -355 Intake, Oral 0 10 Number 0 0 Bowel Movements Output, Urine 170 365 Findings Pertinent Lab/[place] Results: Laboratory Tests 04/05 04/04 04/04 1649 9203 1420 Blood Gas pH (7.35 - 7.45 PH) 7.47 H pCO2 (35 - 45 TORR) 33 L pO2 (80 - 100 TORR) 54 L HCO3 (21 - 28 MEQ/L) 23 ABG O2 Sat (Measured) (>96.0 %) 87.0 L P-50 (Temp Corrected) N Carboxyhemoglobin (1.5 - 5.0 %) 0.1 L O2 Concentration % 5L Temperature (97.0 - 100.0 FARH) 97.4 O2 Delivery Method N/C Chemistry Sodium (137 - 145 mmol/L) 139 138 Potassium (3.5 - 5.1 mmol/L) 5.5 H 4.6 Chloride (98 - 107 mmol/L) 100 98 Carbon Dioxide (22 - 30 mmol/L) 27 27 Anion Gap (5 - 16) 12 12 BUN (9 - 20 mg/dL) 50 H 47 H Creatinine (0.7 - 1.2 mg/dL) 1.8 H 1.6 H Estimated GFR (>60 ml/min) 38 L 43 L BUN/Creatinine Ratio (7 - 25 %) 29.4 H Glucose (65 - 99 mg/dL) 177 H Calcium (8.4 - 10.2 mg/dL) 8.4 Phosphorus (2.5 - 4.5 mg/dL) 4.2 Magnesium (1.6 - 2.3 mg/dL) 2.2 Total Bilirubin (0.2 - 1.3 mg/dL) 0.6 AST (17 - 59 U/L) 74 H ALT (21 - 72 U/L) 51 Albumin (3.5 - 5.0 g/dL) 2.9 L Hematology CBC w Diff NO MAN DIFF REQ WBC (4.8 - 10.8 /CUMM) 11.7 H RBC (4.70 - 6.10 /CUMM) 2.54 L Hgb (14.0 - 18.0 G/DL) 7.8 L Hct (42 - 52 %) 23.5 L MCV (80.0 - 94.0 FL) 92.6 MCH (27.0 - 31.0 PG) 30.7 MCHC (33.0 - 37.0 G/DL) 33.2 RDW (11.5 - 14.5 %) 13.5 Plt Count (130 - 400 /CUMM) 408 H MPV (7.4 - 10.4 FL) 8.6 Gran % (42.2 - 75.2 %) 87.7 H Lymphocytes % (20.5 - 51.1 %) 7.4 L Monocytes % (1.7 - 9.3 %) 4.7 Eosinophils % (0 - 5 %) 0 Basophils % (0.0 - 2.0 %) 0.2 Absolute Granulocytes (1.4 - 6.5 /CUMM) 10.3 H Absolute Lymphocytes (1.2 - 3.4 /CUMM) 0.9 L Absolute Monocytes (0.10 - 0.60 /CUMM) 0.5 Absolute Eosinophils (0.0 - 0.7 /CUMM) 0 Absolute Basophils (0.0 - 0.2 /CUMM) 0 Miscellaneous Phlebotomy Draw Site L BRACHIAL Toxicology Random Vancomycin (ug/ml) 14.7 02/10 1400 Chemistry Sodium (137 - 145 mmol/L) 135 L Potassium (3.5 - 5.1 mmol/L) 5.4 H Chloride (98 - 107 mmol/L) 97 L Carbon Dioxide (22 - 30 mmol/L) 24 Anion Gap (5 - 16) 13 BUN (9 - 20 mg/dL) 45 H Creatinine (0.7 - 1.2 mg/dL) 1.4 H Estimated GFR (>60 ml/min) 50 L Glucose (65 - 99 mg/dL) 302 H Calcium (8.4 - 10.2 mg/dL) 8.5 Phosphorus (2.5 - 4.5 mg/dL) 4.0 Magnesium (1.6 - 2.3 mg/dL) 2.2 Total Bilirubin (0.2 - 1.3 mg/dL) 0.6 AST (17 - 59 U/L) 90 H ALT (21 - 72 U/L) 50 Troponin I (<0.11 ng/ml) 2.02 *H [id number] Pept (<125 pg/mL) 56351 H Albumin (3.5 - 5.0 g/dL) 3.2 L Toxicology Acetone Level (NEGATIVE) NEGATIVE
--- NOTE | 2017-04-05 10:42 | PN- Housestaff ---
Lakesha LOZANO,Angela 04/05/17 1042: Subjective Follow-up For: Follow-up gangrenous second and third toes of right foot PARRIS Anemia Hyperkalemia Complaints: no complaints Tele-Events Since Last Visit: No any overnight events Subjective: Patient is seen and examined at the bedside. He was coherent most of the time, and responded to verbal commands. He was having low appetite but denies for any difficulty in swallowing. He had one episode of high temperature of 99.8. Discussed with her , about his situation and she was very worried about infection in the toes. I updated her that he will go to amputation on Thursday, if he remains stable. Review of Systems Constitutional: Denies: no symptoms. Comments: Cannot comment because of the patient's clinical status Objective Last 24 Hrs of Vital Signs/I&O Vital Signs Date Time Temp Pulse Resp B/P B/P Pulse O2 O2 Flow FiO2 Mean Ox Delivery Rate 04/05 1200 92 Nasal 65% Cannula 04/05 0940 113 130/60 04/05 0939 113 130/60 04/05 0845 93 Nasal 65% Cannula 04/05 0800 Part ReBreather 04/05 0354 94 Part 60% ReBreather 04/05 0000 96 Part 60% ReBreather 04/05 0000 97.6 100 32 112/64 96 Part 60% ReBreather 04/04 2000 90 Nasal 8L Cannula 04/04 1999 97.4 92 28 102/58 90 Nasal 8L Cannula 04/04 1600 91 Nasal 8L Cannula 04/04 1449 91 Nasal 7.0L Cannula Intake & Output 04/05 1600 04/05 0800 04/05 0000 Intake Total 0 10 Output Total 170 365 Balance -170 -355 Intake, Oral 0 10 Number 0 0 Bowel Movements Output, Urine 170 365 Physical Exam General Appearance: Cooperative, Mild Distress Skin: multiple ecchymotic patches in left lower leg, pulses are palpable Neck: Supple, No JVD Cardiovascular: Normal S1, Normal S2 Lungs: bilateral decreased air entry and occasional crackles Abdomen: Soft, No Tenderness Neurological: Normal Speech Extremities: right lower extremeties infarct in first and 2nd toe Vascular: weak pulses Current Medications: Current Medications Sig/Coral Start time Last Medication Dose Route Stop Time Status Admin Acetaminophen 650 MG .STK-MED ONE 04/04 1556 DC PO 04/04 1557 Acetaminophen 500 MG TID 04/03 1156 AC 04/05 PO 0939 Amlodipine Besylate 5 MG DAILY 04/03 1200 AC 04/05 PO 0940 Aspirin 81 MG DAILY 04/04 1000 AC 04/05 PO 0940 Atorvastatin Calcium 40 MG 1700 04/03 1700 AC 04/04 PO 1748 Ceftazidime 1,000 MG 1600,0400 04/04 1600 AC 04/05 IV 0424 Dextrose/Sodium 1,000 ML Q13H 04/03 1645 DC 04/04 Chloride IV 0600 Fluticasone 2 SPRAY DAILY 04/03 1155 AC Propionate THOMAS Furosemide 20 MG ONCE ONE 04/04 1745 DC 04/04 IV 04/04 1746 1748 Furosemide 20 MG ONCE ONE 04/04 1615 DC 04/04 IV 04/04 1616 1647 Heparin Sodium 5,000 UNIT Q8 04/03 1400 AC 04/05 (Porcine) SC 0635 Insulin Aspart 0 TIDAC/HS 04/04 2100 AC 04/05 SC 1227 Insulin Aspart 0 Q4 04/03 1800 DC 04/04 SC 1748 Insulin Detemir 6 UNITS BID 04/05 2200 AC SC Insulin Detemir 8 UNITS BID 04/05 1000 DC 04/05 SC 0953 Insulin Detemir 8 UNITS BID 04/04 2200 DC SC Insulin Detemir 10 UNITS BID 04/04 2200 DC SC Insulin Detemir 5 UNITS BID 04/03 1645 DC 04/04 SC 1137 Lorazepam 0.5 MG ONE ONE 04/04 1745 DC 04/04 PO 04/04 1746 1748 Metoprolol Succinate 25 MG DAILY 04/03 1714 AC 04/05 PO 0939 Morphine Sulfate 2 MG Q4P PRN 04/04 1845 AC 04/05 IV 0819 Olanzapine 5 MG ONCE PRN 04/04 1915 DC 04/04 IM 04/04 2300 2308 Pregabalin 50 MG TID 04/03 1155 AC 04/05 PO 0939 Vancomycin HCl 1,000 MG ONCE ONE 04/05 1045 DC 04/05 Dextrose/Water 250 ML IV 04/05 1144 1227 Last 24 Hrs of Lab/[place] Results Last 24 Hrs of Labs/Mics: Laboratory Tests 04/05/17 0435: Anion Gap 12, Estimated GFR 38 L, Glucose 177 H, Calcium 8.4, Phosphorus 4.2, Magnesium 2.2, Total Bilirubin 0.6, AST 74 H, ALT 51, Albumin 2.9 L, CBC w Diff NO MAN DIFF REQ, RBC 2.54 L, MCV 92.6, MCH 30.7, MCHC 33.2, RDW 13.5, MPV 8.6, Gran % 87.7 H, Lymphocytes % 7.4 L, Monocytes % 4.7, Eosinophils % 0, Basophils % 0.2, Absolute Granulocytes 10.3 H, Absolute Lymphocytes 0.9 L, Absolute Monocytes 0.5, Absolute Eosinophils 0, Absolute Basophils 0, Random Vancomycin 14.7 04/04/17 2332: Anion Gap 12, Estimated GFR 43 L, BUN/Creatinine Ratio 29.4 H 04/04/17 1420: pH 7.47 H, pCO2 33 L, pO2 54 L, HCO3 23, ABG O2 Sat (Measured) 87.0 L, P-50 (Temp Corrected) N, Carboxyhemoglobin 0.1 L, O2 Concentration % 5L, Temperature 97.4, O2 Delivery Method N/C, Phlebotomy Draw Site L BRACHIAL 04/04/17 1400: Anion Gap 13, Estimated GFR 50 L, Glucose 302 H, Calcium 8.5, Phosphorus 4.0, Magnesium 2.2, Total Bilirubin 0.6, AST 90 H, ALT 50, Troponin I 2.02 *H, Pro-B -Natriuretic Pept 11633 H, Albumin 3.2 L, Acetone Level NEGATIVE Microbiology 04/04 1700 URINE ROUT: Urine Culture - RES 04/04 1700 GI: Surveillance Culture - RECD 04/04 1622 LOWER RESP: Respiratory Culture - COLB 04/04 1622 LOWER RESP: Gram Stain - COLB 04/04 1500 UPPER RESP: Surveillance Culture - RECD Assessment/Plan Assessment: 71-year-old male with past medical history significant for hypertension, hyperlipidemia, diabetes on insulin pump, status post pacemaker placement with recent admission on March 18 requiring toe amputation, significant peripheral vascular disease requiring SFA atherectomy and diagnosis of MRSA osteomyelitis requiring PICC line placement for prolonged antibiotics discharged on 03/30/2017 who is admitted to the hospital for workup of unwitnessed fall, high white count with bandemia, acute kidney injury and elevated troponins. Vital signs -remained afebrile overnight maximum temperature was 99.8, pulse 84, respiratory rate 16, blood pressure 106/46, FiO2 60% on high flow, SPO2 91%. Intake/output 170/535. Still having hematuria. Assessment and plan - Advised to take blood Cultures if patient spikes fever. f/u Renal USG PVD; s/p MRSA OM; Right foot gangrene involving second and third toe - * Patient does not have wound VAC, as he was not transferred from rehab with VAC. Discussed with Dr. Beck he does not think he need it now. * He advised that patient will go for an amputation on Thursday. We will keep him n.p.o. after Thursday midnight. * Follow up vascular and Podiatry consult Type II VT multifactorial -history of biventricular pacemaker(2009) for complete heart block;RCA 100% on medical management - * Had Acute VT/ Demand Ischemia - Multifactorial * he had multiple ecchymotic patches on right lower leg - we need to r/o Infective endocarditis and infarct in kidney. * He is also having progressive deterioration in Kid[place]y fucntion - May be sepsis or CHF; Cardioranal syndrome, he may need echo to know current EF and to rule it out. Acute kidney injury; mutifactorial - Sepsis; Cardiorenal; Renal infarct - * doesnt look like Vanco nephrotoxicity, as vancomycin cause nephrotoxicity only in high doses, his all blood level were with in normal limit. * His Urine out put was low - Discussed with Dr Person, for IV fluids, advised it may be sepsis, we need to know EF before we will start patient on IV fluids, advised to consult cardiology. Type 2 Diabetes. * Follow endocrinology recommendations * Levemir 8 twice a day * Sliding scale * Patient had an episode of hypoglycemia with blood sugar of 69, he gave 12.5 g of IV dextrose; that sugar was rechecked -85. Discussed with Dr. Steiner, advised to hold the night dose of Levemir. Start the patient on 5% dextrose 50 cc/h. Code Status - DNR/DNI DVT prophylaxis - Heparin. Problem List: 1. Peripheral vascular disease 2. Osteomyelitis 3. PARRIS (acute kidney injury) 4. Decreased urine output 5. Hematuria Pain Ratin Pain Location: n/a Pain Goal: Remain pain free Pain Plan: avoid sedation Tomorrow's Labs & Rationales: cbc,ICU bundle Theo Vicente MD 04/05/172034: Attending MD Review Statement Attending Statement Attending MD Statement: examined this patient, discuss w/resident/PA/DUST CONTROL ENGINEER, agreed w/resident/PA/DUST CONTROL ENGINEER, reviewed EMR data (avail), reviewed images, amended to note Attending Assessment/Plan: The patient was seen and discussed with house staff. The patient remains confused. Low blood sugar noted later in day. Resident has discussed condition with family. Appreciate Cardiology follow-up.
--- NOTE | 2017-04-05 11:26 | ULTRASOUND REPORT ---
EXAMINATION: US TRIPLEX OF LOWER EXTREMITIES, BILATERAL CLINICAL INFORMATION: Tachycardia and tachypnea. COMPARISON: None TECHNIQUE: Color-flow triplex imaging with spectral analysis and compression Doppler were performed on the lower extremities. FINDINGS: Respiratory variation, normal compression and augmented flow are noted throughout the lower extremities. The visualized common femoral vein, superficial femoral vein, profunda femoral vein, popliteal vein and midcalf peroneal and posterior tibial venous segments show no evidence of deep venous thrombosis. There is a right popliteal fossa Fair's cyst measuring 1.9 x 0.4 x 2.0 cm. IMPRESSION: - There is no deep venous thrombosis involving the lower extremities. - There is a right popliteal fossa Fair's cyst measuring 1.9 x 0.4 x 2.0 cm.
--- NOTE | 2017-04-05 13:53 | Cons- Nephrology ---
General Information and HPI Consulting Request Date of Consult: 04/05/17 Requested By: Tamica LOZANO,Jackie History of Present Illness: 71 yo male with type 1 DM, PVD with gangrous right toes, CAD. He is said to have nephropahty although never had documented high grade proteinuria and recent creatinines around 1.1. He recently was in the hospital for gangrenous changes to right toes, was getting Vancomycin at [facility] and was schedule to have TMA amputation. He fell at [facility], unclear if had syncope, and was brought to . Troponins in the hospital have been elevated has paced rhythm so EKG difficult to interpret. He developed worsened SOB yesterday, mental status has deteriorated and now urine ouput has decreased. Creatinine was 1.8 on admission , fell sliglty but back up to 1.8 today. CXR/CT shows effusions, multiple ground glass infiltrates. FH: negative for kidney disease. Allergies/Medications Allergies: Coded Allergies: NO KNOWN ALLERGIES (12/07/15) Home Med List: Acetaminophen (Tylenol Extra Strength) 500 MG TABLET 1 TAB PO TID right foot pain Amlodipine Besylate 10 MG TABLET 1 TAB PO DAILY high blood pressure Aspirin (Children's Aspirin) 81 MG TAB.CHEW 1 TAB PO DAILY HEART HEALTH ( Reported) Atorvastatin Calcium (Lipitor) 40 MG TABLET 1 TAB PO DAILY HLD Fluticasone Furoate (Flonase Sensimist) 27.5 MCG/ACTUATION SPRAY.SUSP 2 PUF NS DAILY ALLERGY (Reported) Insulin Aspart (Novolog) 100 UNIT/ML VIAL 0 SC QHS DIABETES LESS THAN GLUCOSE 250, GIVE NO INSULIN 251-300 GIVE 2 UNITS 301-350 GIVE 3 UNITS 351-400 GIVE 4 UNITS Insulin Aspart (Novolog) 100 UNIT/ML VIAL 0 SC TIDAC DIABETES GLUCOSE LESS THAN 80 GIVE NO INSULIN GLUCOSE 80-150 GIVE 3 UNITS 151-200 GIVE 5 UNITS 201-250 GIVE 6 UNITS 251-300 GIVE 7 UNITS 301-350 GIVE 8 UNITS 351-400 GIVE 9 UNITS greater than 400 give 9 units and CALL Insulin Detemir (Levemir) 100 UNIT/ML VIAL 10 UNITS SC BID DIABETES Losartan (Cozaar) 100 MG TABLET 1 TAB PO DAILY HYPERTENSION (Reported) Metoprolol Succ XL (Toprol XL) 25 MG TAB 1 TAB PO DAILY HYPERTENSION ( Reported) Pregabalin (Lyrica) 50 MG CAPSULE 1 CAP PO TID NEUROPATHY (Reported) Vancomycin HCl 1 GRAM VIAL.PORT 1 VIAL IV BID OSTEOMYELITIS GIVE UNTIL March. Current Medications: Current Medications Sig/Coral Start time Last Medication Dose Route Stop Time Status Admin Acetaminophen 650 MG .STK-MED ONE 04/04 1556 DC PO 04/04 1557 Acetaminophen 500 MG TID 04/03 1156 AC 04/05 PO 0939 Amlodipine Besylate 5 MG DAILY 04/03 1200 AC 04/05 PO 0940 Aspirin 81 MG DAILY 04/04 1000 AC 04/05 PO 0940 Atorvastatin Calcium 40 MG 1700 04/03 1700 AC 04/04 PO 1748 Ceftazidime 1,000 MG 1600,0400 04/04 1600 AC 04/05 IV 0424 Dextrose/Sodium 1,000 ML Q13H 04/03 1645 DC 04/04 Chloride IV 0600 Fluticasone 2 SPRAY DAILY 04/03 1155 AC Propionate THOMAS Furosemide 20 MG ONCE ONE 04/04 1745 DC 04/04 IV 04/04 1746 1748 Furosemide 20 MG ONCE ONE 04/04 1615 DC 04/04 IV 04/04 1616 1647 Heparin Sodium 5,000 UNIT Q8 04/03 1400 AC 04/05 (Porcine) SC 0635 Insulin Aspart 0 TIDAC/HS 04/04 2100 AC 04/05 SC 1227 Insulin Aspart 0 Q4 04/03 1800 DC 04/04 SC 1748 Insulin Detemir 6 UNITS BID 04/05 2200 AC SC Insulin Detemir 8 UNITS BID 04/05 1000 DC 04/05 SC 0953 Insulin Detemir 8 UNITS BID 04/04 2200 DC SC Insulin Detemir 10 UNITS BID 04/04 2200 DC SC Insulin Detemir 5 UNITS BID 04/03 1645 DC 04/04 SC 1137 Lorazepam 0.5 MG ONE ONE 04/04 1745 DC 04/04 PO 04/04 1746 1748 Metoprolol Succinate 25 MG DAILY 04/03 1714 AC 04/05 PO 0939 Morphine Sulfate 2 MG Q4P PRN 04/04 1845 AC 04/05 IV 0819 Olanzapine 5 MG ONCE PRN 04/04 1915 DC 04/04 IM 04/04 2300 2308 Pregabalin 50 MG TID 04/03 1155 AC 04/05 PO 0939 Vancomycin HCl 1,000 MG ONCE ONE 04/05 1045 DC 04/05 Dextrose/Water 250 ML IV 04/05 1144 1227 Review of Systems Review of Systems: Impossibled as patient not response. Past History Travel History Traveled to [place] past 21 day No Medical History Blood Transfusion Hx: No Neurological: peripheral neuropathy EENT: cataracts, diabetic retinopathy Cardiovascular: CAD, hypertension, hyperlipidemia, Pacemaker (R) Respiratory: bronchitis Gastrointestinal: NONE Hepatic: NONE Renal: NONE Musculoskeletal: fracture, right foot osteomyeltitis w/ wound vac at right great toe (Mar 2017) Psychiatric: NONE Endocrine: diabetes type 1 Blood Disorders: NONE Cancer(s): NONE DEPARTMENT COORDINATOR/Reproductive: NONE Surgical History Surgical History: pacemaker right great toe amputation Feb 2017 Family History Relations & Conditions If Any: MOTHER FH: myocardial infarction Psychosocial History Services at Home: None Primary Language: Armenian Smoking Status: Former Smoker Functional Ability ADLs Independent: dressing, eating, toileting, bathing. Ambulation: independent IADLs Independent: shopping, housework, finances, food prep, telephone, transportation , medication admin. Exam & Diagnostic Data Vital Signs and I&O Vital Signs Date Time Temp Pulse Resp B/P B/P Pulse O2 O2 Flow FiO2 Mean Ox Delivery Rate 04/05 1200 92 Nasal 65% Cannula 04/05 0940 113 130/60 04/05 0939 113 130/60 04/05 0845 93 Nasal 65% Cannula 04/05 0800 Part ReBreather 04/05 0354 94 Part 60% ReBreather 04/05 0000 96 Part 60% ReBreather 04/05 0000 97.6 100 32 112/64 96 Part 60% ReBreather 04/04 2000 90 Nasal 8L Cannula 04/04 1999 97.4 92 28 102/58 90 Nasal 8L Cannula 04/04 1600 91 Nasal 8L Cannula 04/04 1449 91 Nasal 7.0L Cannula Intake & Output 04/05 1600 04/05 0400 04/04 1600 04/04 0400 04/03 1600 04/03 0400 Intake Total 0 10 955 600 Output Total 170 365 800 750 300 Balance -170 -355 155 -150 -300 Intake, IV 925 600 Intake, Oral 0 10 30 0 Number 0 0 1 1 Bowel Movements Output, Urine 170 365 800 750 300 Patient 180 lb Weight Physical Exam: Ill, confused VS as above Eyes: anicteric, PERRL Neck: no mass or thryomegaly Nodes: negative cervical/inguinal Skin: left foot bandaged, black toes. Pupuric rash on right foot Lungs: decreaed breath sounds, rhochi bilaterally CV: no rub or murmur Abd: nontender, no organomegaly, BS positive Exts: 1+ dwependent edema, absent pedal pulses Neuro: not talking, somulent. Results Pertinent Lab Results: Laboratory Tests 04/05 04/04 04/04 0435 2332 1420 Blood Gas pH (7.35 - 7.45 PH) 7.47 H pCO2 (35 - 45 TORR) 33 L pO2 (80 - 100 TORR) 54 L HCO3 (21 - 28 MEQ/L) 23 ABG O2 Sat (Measured) (>96.0 %) 87.0 L P-50 (Temp Corrected) N Carboxyhemoglobin (1.5 - 5.0 %) 0.1 L O2 Concentration % 5L Temperature (97.0 - 100.0 FARH) 97.4 O2 Delivery Method N/C Chemistry Sodium (137 - 145 mmol/L) 139 138 Potassium (3.5 - 5.1 mmol/L) 5.5 H 4.6 Chloride (98 - 107 mmol/L) 100 98 Carbon Dioxide (22 - 30 mmol/L) 27 27 Anion Gap (5 - 16) 12 12 BUN (9 - 20 mg/dL) 50 H 47 H Creatinine (0.7 - 1.2 mg/dL) 1.8 H 1.6 H Estimated GFR (>60 ml/min) 38 L 43 L BUN/Creatinine Ratio (7 - 25 %) 29.4 H Glucose (65 - 99 mg/dL) 177 H Calcium (8.4 - 10.2 mg/dL) 8.4 Phosphorus (2.5 - 4.5 mg/dL) 4.2 Magnesium (1.6 - 2.3 mg/dL) 2.2 Total Bilirubin (0.2 - 1.3 mg/dL) 0.6 AST (17 - 59 U/L) 74 H ALT (21 - 72 U/L) 51 Albumin (3.5 - 5.0 g/dL) 2.9 L Hematology CBC w Diff NO MAN DIFF REQ WBC (4.8 - 10.8 /CUMM) 11.7 H RBC (4.70 - 6.10 /CUMM) 2.54 L Hgb (14.0 - 18.0 G/DL) 7.8 L Hct (42 - 52 %) 23.5 L MCV (80.0 - 94.0 FL) 92.6 MCH (27.0 - 31.0 PG) 30.7 MCHC (33.0 - 37.0 G/DL) 33.2 RDW (11.5 - 14.5 %) 13.5 Plt Count (130 - 400 /CUMM) 408 H MPV (7.4 - 10.4 FL) 8.6 Gran % (42.2 - 75.2 %) 87.7 H Lymphocytes % (20.5 - 51.1 %) 7.4 L Monocytes % (1.7 - 9.3 %) 4.7 Eosinophils % (0 - 5 %) 0 Basophils % (0.0 - 2.0 %) 0.2 Absolute Granulocytes (1.4 - 6.5 /CUMM) 10.3 H Absolute Lymphocytes (1.2 - 3.4 /CUMM) 0.9 L Absolute Monocytes (0.10 - 0.60 /CUMM) 0.5 Absolute Eosinophils (0.0 - 0.7 /CUMM) 0 Absolute Basophils (0.0 - 0.2 /CUMM) 0 Miscellaneous Phlebotomy Draw Site L BRACHIAL Toxicology Random Vancomycin (ug/ml) 14.7 04/04 04/04 04/04 1400 0601 0016 Chemistry Sodium (137 - 145 mmol/L) 135 L 139 Potassium (3.5 - 5.1 mmol/L) 5.4 H 4.4 Chloride (98 - 107 mmol/L) 97 L 98 Carbon Dioxide (22 - 30 mmol/L) 24 29 Anion Gap (5 - 16) 13 12 BUN (9 - 20 mg/dL) 45 H 38 H Creatinine (0.7 - 1.2 mg/dL) 1.4 H 1.4 H Estimated GFR (>60 ml/min) 50 L 50 L BUN/Creatinine Ratio (7 - 25 %) 27.1 H Glucose (65 - 99 mg/dL) 302 H Calcium (8.4 - 10.2 mg/dL) 8.5 Phosphorus (2.5 - 4.5 mg/dL) 4.0 Magnesium (1.6 - 2.3 mg/dL) 2.2 2.2 Total Bilirubin (0.2 - 1.3 mg/dL) 0.6 AST (17 - 59 U/L) 90 H ALT (21 - 72 U/L) 50 Troponin I (<0.11 ng/ml) 2.02 *H 3.81 *H 6.64 *H Qen-C-Sozlbnobaax Pept (<125 pg/mL) 19634 H Albumin (3.5 - 5.0 g/dL) 3.2 L Hematology CBC w Diff NO MAN DIFF REQ WBC (4.8 - 10.8 /CUMM) 15.1 H RBC (4.70 - 6.10 /CUMM) 3.01 L Hgb (14.0 - 18.0 G/DL) 9.4 L Hct (42 - 52 %) 27.7 L MCV (80.0 - 94.0 FL) 92.2 MCH (27.0 - 31.0 PG) 31.1 H MCHC (33.0 - 37.0 G/DL) 33.8 RDW (11.5 - 14.5 %) 13.8 Plt Count (130 - 400 /CUMM) 484 H MPV (7.4 - 10.4 FL) 8.6 Gran % (42.2 - 75.2 %) 87.2 H Lymphocytes % (20.5 - 51.1 %) 7.6 L Monocytes % (1.7 - 9.3 %) 4.3 Eosinophils % (0 - 5 %) 0.7 Basophils % (0.0 - 2.0 %) 0.2 Absolute Granulocytes (1.4 - 6.5 /CUMM) 13.1 H Absolute Lymphocytes (1.2 - 3.4 /CUMM) 1.1 L Absolute Monocytes (0.10 - 0.60 /CUMM) 0.7 H Absolute Eosinophils (0.0 - 0.7 /CUMM) 0.1 Absolute Basophils (0.0 - 0.2 /CUMM) 0 Toxicology Random Vancomycin (ug/ml) 10.2 Acetone Level (NEGATIVE) NEGATIVE 04/03 04/03 04/03 2145 1725 1150 Chemistry Troponin I (<0.11 ng/ml) Cancelled 6.11 *H Urines Ur Eosinophil Smear (NONE) NONE 04/03 04/03 1150 1113 Hematology CBC w Diff MAN DIFF ORDERED WBC (4.8 - 10.8 /CUMM) 16.1 H RBC (4.70 - 6.10 /CUMM) 2.86 L Hgb (14.0 - 18.0 G/DL) 8.9 L Hct (42 - 52 %) 26.5 L MCV (80.0 - 94.0 FL) 92.5 MCH (27.0 - 31.0 PG) 31.1 H MCHC (33.0 - 37.0 G/DL) 33.6 RDW (11.5 - 14.5 %) 13.1 Plt Count (130 - 400 /CUMM) 408 H MPV (7.4 - 10.4 FL) 8.3 Gran % (42.2 - 75.2 %) 93.0 H Lymphocytes % (20.5 - 51.1 %) 3.4 L Monocytes % (1.7 - 9.3 %) 3.1 Eosinophils % (0 - 5 %) 0.1 Basophils % (0.0 - 2.0 %) 0.4 Absolute Granulocytes (1.4 - 6.5 /CUMM) 15.0 H Segmented Neutrophils (42.2 - 75.2 %) 85 H Band Neutrophils (0.0 - 5.0 %) 7 H Absolute Lymphocytes (1.2 - 3.4 /CUMM) 0.5 L Lymphocytes (20.5 - 51.1 %) 3 L Monocytes (1.7 - 9.3 %) 4 Absolute Monocytes (0.10 - 0.60 /CUMM) 0.5 Eosinophils (0 - 5.0 %) 1 Absolute Eosinophils (0.0 - 0.7 /CUMM) 0 Absolute Basophils (0.0 - 0.2 /CUMM) 0.1 Normocytic RBCs VERIFIED Normochromic RBCs VERIFIED Urines Urinalysis MOD H Urine Color (YEL,AMB,STR) YEL Urine Clarity (CLEAR) HAZY H Urine pH (5.0 - 8.0) 6.0 Ur Specific [place] (1.001 - 1.035) 1.025 Urine Protein (NEG,<30 MG/DL) TRACE H Urine Ketones (NEG) NEG Urine Nitrite (NEG) NEG Urine Bilirubin (NEG) NEG Urine Urobilinogen (0.1 - 1.0 EU/dl) 0.2 Ur Leukocyte Esterase (NEG) NEG Ur Microscopic SEDIMENT EXAMINED Urine RBC (0 - 5 /HPF) 1-3 Urine WBC (0 - 2 /HPF) RARE Ur Epithelial Cells (NONE,FEW) RARE Urine Bacteria (NEG/NONE) RARE H Hyaline Casts (0/LPF) 1-3 H Urine Mucus (FEW,NONE) RARE Urine Hemoglobin (NEG) SMALL H Urine Glucose (N MG/DL) 100 H 09 02 1101 0845 Chemistry Sodium (137 - 145 mmol/L) 136 L Potassium (3.5 - 5.1 mmol/L) 4.9 Chloride (98 - 107 mmol/L) 98 Carbon Dioxide (22 - 30 mmol/L) 23 Anion Gap (5 - 16) 15 BUN (9 - 20 mg/dL) 33 H Creatinine (0.7 - 1.2 mg/dL) 1.8 H Estimated GFR (>60 ml/min) 38 L BUN/Creatinine Ratio (7 - 25 %) 18.3 Glucose (65 - 99 mg/dL) 265 H Calcium (8.4 - 10.2 mg/dL) 8.1 L Total Bilirubin (0.2 - 1.3 mg/dL) 0.4 Direct Bilirubin (< 0.4 mg/dL) 0.3 AST (17 - 59 U/L) 56 ALT (21 - 72 U/L) 42 Alkaline Phosphatase (< 127 U/L) 72 Troponin I (<0.11 ng/ml) 0.44 *H Total Protein (6.3 - 8.2 g/dL) 5.5 L Albumin (3.5 - 5.0 g/dL) 2.6 L Amylase (30 - 110 U/L) 35 Lipase (23 - 300 U/L) 26 Coagulation PT (9.4 - 12.5 SEC) Cancelled 13.8 H INR (0.90 - 1.17) Cancelled 1.32 H Hematology CBC w Diff MAN DIFF ORDERED WBC (4.8 - 10.8 /CUMM) 17.3 H RBC (4.70 - 6.10 /CUMM) 2.86 L Hgb (14.0 - 18.0 G/DL) 8.7 L Hct (42 - 52 %) 26.4 L MCV (80.0 - 94.0 FL) 92.2 MCH (27.0 - 31.0 PG) 30.5 MCHC (33.0 - 37.0 G/DL) 33.1 RDW (11.5 - 14.5 %) 13.4 Plt Count (130 - 400 /CUMM) 406 H MPV (7.4 - 10.4 FL) 8.1 Gran % (42.2 - 75.2 %) 93.2 H Lymphocytes % (20.5 - 51.1 %) 2.5 L Monocytes % (1.7 - 9.3 %) 4.0 Eosinophils % (0 - 5 %) 0 Basophils % (0.0 - 2.0 %) 0.3 Absolute Granulocytes (1.4 - 6.5 /CUMM) 16.1 H Segmented Neutrophils (42.2 - 75.2 %) 86 H Band Neutrophils (0.0 - 5.0 %) 6 H Absolute Lymphocytes (1.2 - 3.4 /CUMM) 0.4 L Lymphocytes (20.5 - 51.1 %) 4 L Monocytes (1.7 - 9.3 %) 4 Absolute Monocytes (0.10 - 0.60 /CUMM) 0.7 H Absolute Eosinophils (0.0 - 0.7 /CUMM) 0 Absolute Basophils (0.0 - 0.2 /CUMM) 0.1 Platelet Estimate (ADEQUATE) VERIFIED BY SMEAR Normocytic RBCs VERIFIED Normochromic RBCs VERIFIED Toxicology Random Vancomycin (ug/ml) 17.3 Assessment/Plan Assessment/Recommendations Assessment: PARRIS probably from combination of sepsis (foot vs pneumonia), possible CHF. BP lower than normal in patient with severe vascular disease so with CA may be hypoperfusion. Left foot rash suspicious for atherembolism, had percutaneous procedure in last two weeks. Has effusions on CXR and some edema so I don't think he is volume overloaded. With hypoxia no room for fluid challenge. Recommendations: Would get echo to assess LV function. Needs renal US at some point although abdominal CT did not show obstruction on admission. Unfoturnately with hypoxia cannot give fluids but hessitent to diurese with worsening renal function and probable sepsis. Needs blood cultures if not done, continue broad spectrum antibiotics. If respitory status worsens may need to try to diurese but carefully watch bp.
[2017-04-05 16:00] VITALS: BP 90/44
--- NOTE | 2017-04-05 18:32 | PN- Cardiology ---
Subjective Subjective: Somnolent and being evaluated for hypoglycemia. Objective Vital Signs and I&Os Vital Signs Date Time Temp Pulse Resp B/P B/P Pulse O2 O2 Flow FiO2 Mean Ox Delivery Rate 04/05 1600 95 Nasal 65% Cannula 04/05 1600 99.2 70 18 90/44 95 Nasal 65% Cannula 04/05 1200 92 Nasal 65% Cannula 04/05 0940 113 130/60 04/05 0939 113 130/60 04/05 0845 93 Nasal 65% Cannula 04/05 0800 Part ReBreather 04/05 0354 94 Part 60% ReBreather 04/05 0000 96 Part 60% ReBreather 04/05 0000 97.6 100 32 112/64 96 Part 60% ReBreather 04/04 1999 90 Nasal 8L Cannula 04/04 1999 97.4 92 28 102/58 90 Nasal 8L Cannula Intake & Output 04/05 1600 04/05 0800 04/05 0000 04/04 1600 04/04 0800 04/04 0000 Intake Total 310 0 10 355 600 600 Output Total 125 170 365 400 400 750 Balance 185 -170 -355 -45 200 -150 Intake, IV 250 325 600 600 Intake, Oral 60 0 10 30 0 0 Number 0 0 0 1 1 Bowel Movements Output, Urine 125 170 365 400 400 750 Physical Exam: Well-developed, well-nourished elderly male who is agitated with nasal oxygen in place. Vital signs: See above. Lungs: Decreased breath sounds occasional rhonchi. Heart: S1, S2 with soft systolic murmur. Abdomen: Soft, nontender, positive bowel sounds. Extremities: Bandaged right foot with gangrenous toes observed. Current Medications: Current Medications Sig/Coral Start time Last Medication Dose Route Stop Time Status Admin Acetaminophen 500 MG TID 04/03 1156 AC 04/05 PO 0939 Amlodipine Besylate 5 MG DAILY 04/03 1200 AC 04/05 PO 0940 Aspirin 81 MG DAILY 04/04 1000 AC 04/05 PO 0940 Atorvastatin Calcium 40 MG 1700 04/03 1700 AC 04/04 PO 1748 Ceftazidime 1,000 MG 1600,0400 04/04 1600 AC 04/05 IV 1738 Dextrose/Water 1,000 ML Q20H 04/05 1645 AC 04/05 IV 1644 Fluticasone 2 SPRAY DAILY 04/03 1155 AC Propionate THOMAS Heparin Sodium 5,000 UNIT Q8 04/03 1400 AC 04/05 (Porcine) SC 1416 Insulin Aspart 0 TIDAC/HS 04/04 2100 r 04/05 SC 1227 Insulin Detemir 6 UNITS DAILY 04/06 1000 UNVr SC Insulin Detemir 6 UNITS BID 04/05 2200 DC SC Insulin Detemir 8 UNITS BID 04/05 1000 DC 04/05 SC 0953 Insulin Detemir 10 UNITS BID 04/04 2200 DC SC Metoprolol Succinate 25 MG DAILY 04/03 1714 AC 04/05 PO 0939 Morphine Sulfate 2 MG Q4P PRN 04/04 1845 AC 04/05 IV 1417 Olanzapine 5 MG ONCE PRN 04/04 1915 DC 04/04 IM 04/04 2300 2308 Pregabalin 50 MG TID 04/03 1155 AC 04/05 PO 0939 Vancomycin HCl 1,000 MG ONCE ONE 04/05 1045 DC 04/05 Dextrose/Water 250 ML IV 04/05 1144 1227 Results Last 48 Hrs of Labs/Mics: Laboratory Tests 04/05/17 0435: Anion Gap 12, Estimated GFR 38 L, Glucose 177 H, Calcium 8.4, Phosphorus 4.2, Magnesium 2.2, Total Bilirubin 0.6, AST 74 H, ALT 51, Albumin 2.9 L, CBC w Diff NO MAN DIFF REQ, RBC 2.54 L, MCV 92.6, MCH 30.7, MCHC 33.2, RDW 13.5, MPV 8.6, Gran % 87.7 H, Lymphocytes % 7.4 L, Monocytes % 4.7, Eosinophils % 0, Basophils % 0.2, Absolute Granulocytes 10.3 H, Absolute Lymphocytes 0.9 L, Absolute Monocytes 0.5, Absolute Eosinophils 0, Absolute Basophils 0, Random Vancomycin 14.7 04/04/17 2332: Anion Gap 12, Estimated GFR 43 L, BUN/Creatinine Ratio 29.4 H 04/04/17 1420: pH 7.47 H, pCO2 33 L, pO2 54 L, HCO3 23, ABG O2 Sat (Measured) 87.0 L, P-50 (Temp Corrected) N, Carboxyhemoglobin 0.1 L, O2 Concentration % 5L, Temperature 97.4, O2 Delivery Method N/C, Phlebotomy Draw Site L BRACHIAL 04/04/17 1400: Anion Gap 13, Estimated GFR 50 L, Glucose 302 H, Calcium 8.5, Phosphorus 4.0, Magnesium 2.2, Total Bilirubin 0.6, AST 90 H, ALT 50, Troponin I 2.02 *H, Pro-B -Natriuretic Pept 66383 H, Albumin 3.2 L, Acetone Level NEGATIVE 04/04/17 0601: Anion Gap 12, Estimated GFR 50 L, BUN/Creatinine Ratio 27.1 H, Magnesium 2.2, Troponin I 3.81 *H, CBC w Diff NO MAN DIFF REQ, RBC 3.01 L, MCV 92.2, MCH 31.1 H, MCHC 33.8, RDW 13.8, MPV 8.6, Gran % 87.2 H, Lymphocytes % 7.6 L, Monocytes % 4.3, Eosinophils % 0.7, Basophils % 0.2, Absolute Granulocytes 13.1 H, Absolute Lymphocytes 1.1 L, Absolute Monocytes 0.7 H, Absolute Eosinophils 0.1 , Absolute Basophils 0, Random Vancomycin 10.2 04/04/17 0016: Troponin I 6.64 *H 04/03/17 2145: Troponin I Cancelled Microbiology 04/05 1425 NASOPHARYN: Influenza Virus A & B Rapid Smear - COMP Assessment/Plan Assessment/Plan [id number] w/ hx HTN, HLD, DM w/ neuropathy, retinopathy, nephropathy, on insulin pump, conduction disease (ppm for CHB 2009) & PVD (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 On telemetry, he remained afebrile, but was persistently tachycardic, tachypnea, and hypoxemic w/ increasing oxygen demand which prompted ICU transfer. A troponin was drawn prior to transfer & returned positive at 2.02 w/o significant ECG changes from his abnormal baseline (ventricular paced rhythm). H/H=7.8/23.5, BUN/cr=50/1.8, K+=5.5. Worsening PARRIS likely multifactorial. Obtain echocardiogram and repeat CXR. If evidence of pulmonary edema would diuresis, otherwise would hold off for now. Continue broad spectrum antimicrobial therapy pending cultures given suspected sepsis from gangrenous foot. Continue present regimen including DVT prophylaxis. Continue telemetry? Not applicable (In ICU.)
[2017-04-05 23:00] VITALS: BP 120/50
--- NOTE | 2017-04-05 23:51 | RADIOLOGY REPORT ---
EXAMINATION: XR PORTABLE CHEST CLINICAL INFORMATION: Edema shortness of breath COMPARISON: 1 day earlier TECHNIQUE: Portable frontal view of the chest was obtained. FINDINGS: Diffuse infiltrates has not changed allowing variation in technique, cardiac device projecting over the RIGHT hemithorax unchanged, heart is enlarged, there is probably mild underlying vascular congestion. Bilateral subpulmonic pleural effusions. IMPRESSION: Overall no changes above.
[2017-04-06 05:04] LABS: ABSOLUTE BASOPHIL COUNT 0.1 /CUMM (0.0-0.2); ABSOLUTE EOSINOPHIL COUNT 0.1 /CUMM (0.0-0.7); ABSOLUTE GRANULOCYTE CT 8.6 /CUMM (1.4-6.5); ABSOLUTE LYMPH COUNT 1.2 /CUMM (1.2-3.4); ABSOLUTE MONOCYTE COUNT 0.5 /CUMM (0.10-0.60); BASOPHIL % 0.8 % (0.0-2.0); EOSINOPHIL % 0.6 % (0-5); GRANULOCYTE % 82.2 % (42.2-75.2); MEAN CORPUSCULAR HGB 30.2 PG (27.0-31.0); MEAN CORPUSCULAR HGB CONC 32.7 G/DL (33.0-37.0); MEAN CORPUSCULAR VOLUME 92.4 FL (80.0-94.0); MEAN PLATELET VOLUME 8.2 FL (7.4-10.4); PLATELET COUNT 415 /CUMM (130-400); RBC DISTRIBUTION WIDTH 13.6 % (11.5-14.5); WHITE BLOOD CELL COUNT 10.4 /CUMM (4.8-10.8)
--- NOTE | 2017-04-06 07:25 | PN- Resident CRCU ---
Subjective HPI/CRCU Issues: He is comfortable this morning. Improved compared to when I saw him last. Was afebrile overnight. Continued to remain on supplemental oxygen. 24 Hour Events: Tm 99.2 Heart rate 79-104 Paced rhythm Respiratory rate 17-32 Blood pressure: [id number], diastolic 48-69 Accu-Cheks to 92, 310, 69. HFNC 55% oxygen and PRB FiO2 of 65%, O2 sat 94-96% IV fluids: D5 half normal 50 mL an hour Urine output 40-50 mL an hour Ins and outs in the last 24 hours: Input 1098 mL, output 695 mL. Objective Vital Signs & I&O Last 8 Hrs of Vitals and I&O: Intake & Output 04/06 0800 Intake Total 414 Output Total 350 Balance 64 Intake, IV 414 Number 0 Bowel Movements Output, Urine 350 Exam General Appearance: awake Other Physical Findings: General Appearance: Cooperative, Mild Distress Skin: multiple ecchymotic patches in left lower leg, pulses are palpable Neck: Supple, No JVD Cardiovascular: Normal S1, Normal S2 Lungs: bilateral decreased air entry and occasional crackles Abdomen: Soft, No Tenderness Neurological: Normal Speech Extremities: right lower extremeties infarct in first and 2nd toe Vascular: weak pulses Current Medications: Current Medications Sig/Coral Start time Last Medication Dose Route Stop Time Status Admin Acetaminophen 500 MG TID 04/03 1156 AC 04/06 PO 1538 Amlodipine Besylate 5 MG DAILY 04/03 1200 AC 04/06 PO 0853 Aspirin 81 MG DAILY 04/04 1000 AC 04/06 PO 0850 Atorvastatin Calcium 40 MG 1700 04/03 1700 AC 04/06 PO 1538 Ceftazidime 1,000 MG 0600,1800 04/06 0600 AC 04/06 IV 1802 Ceftazidime 1,000 MG 1600,0400 04/04 1600 DC 04/06 IV 0616 Dextrose/Sodium 1,000 ML Q20H 04/06 1345 AC 12 Chloride IV 1410 Dextrose/Water 1,000 ML Q20H 11 1645 DC / IV 1137 Fluticasone 2 SPRAY DAILY 04/03 1155 AC Propionate THOMAS Heparin Sodium 5,000 UNIT Q8 04/03 1400 AC 04/06 (Porcine) SC 1410 Insulin Aspart 0 TIDAC/HS 04/04 2100 AC 04/06 SC 1802 Insulin Detemir 6 UNITS DAILY 04/06 1000 AC 04/06 SC 0851 Metoprolol Succinate 25 MG DAILY 04/03 1714 AC 04/06 PO 0850 Morphine Sulfate 2 MG Q4P PRN 04/04 1845 AC 04/06 IV 0912 Pantoprazole Sodium 40 MG DAILY 04/06 1345 AC 04/06 IV 1409 Pregabalin 50 MG TID 04/03 1155 AC 04/06 PO 1537 Vancomycin HCl 1,000 MG ONCE ONE 04/06 1900 DC Dextrose/Water 250 ML IV 04/06 1958 Impression/Plan Impression/Problem List Impression: Mr Liu is a 71-year-old gentleman with a past medical history of type I diabetes on insulin pump (complicated by neuropathy, retinopathy and nephropathy ), complete heart block status post pacemaker, previous admission to [facility] 2 weeks ago for 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 No evidence of prodromal symptoms. At the time of admission, vitals-temperature 97.6, pulse rate 83, blood pressure 131/58, 93% on 4-6 L. Lab findings indicated to PBC 17.3, platelets 406, hemoglobin at 8.7, serum creatinine 1.8. Troponins peaked at 6.64. EKG was very unclear to delineate ST depressions, since he was paced. CT scan chest indicated groundglass opacities, but did not have any clear consolidation suggestive of pneumonia at that time. During the hospital stay on telemetry floor, he remained afebrile, but he was persistently tachycardic and required increased oxygen; which went up to approximately 7 L. He did not have any chest pain, palpitations or altered mentation. An ICU transfer was initiated, when he was persistently tachypneic and remained hypoxemic. Troponin was drawn prior to ICU transfer which was 2.02 , and EKG did not reveal any new ST changes(Discussed with Dr. Sandy). Assessment and plan - Etiology in his case was thought to be likely fluid overload or possible congestive heart failure, pulmonary embolism secondary to prolonged immobility, pneumonia. Received 2 L of D5 half-normal saline since admission, and has not being diuresed so far. PE is in the differential, however lower extremity DVTs could not be done due to unavailability; we'll try to obtain a VQ scan on Thursday or CTA if symptoms persist, and kidney function improves. In regards to right upper lobe opacity, healthcare associated pneumonia could be in the differential. Pertinent labs: WBC 16.1(2/)-->10.4(04/06) Hemoglobin 8.9(/)--> 8.2 (04/06) Platelets 408(04/03)--> 415 (04/06) Sodium 140, potassium 5.0, magnesium 2.6 BUN 47(04/03)--> 63 (04/06) Serum creatinine 1.6(04/03)--> 2.0 (04/06) Troponin 0.44 (04/03)-->2.02 ( 04/04) peaked at 6.64. No new EKG changes. Microbiology: Surveillance cultures positive for MRSA Urine culture, blood cultures negative for any growth of microorganisms Lower respiratory cultures could not be done. Pending labs: SPEP, C3-C4. Respiratory: Continues to require high amounts of oxygen. Would check echocardiogram, and diurese as the kidney function allows. Monitor for any respiratory decompensation. Infectious: Continues to have high white count, and chest x ray s/o questionable pneumonia for which he was started on ceftazdime D3. Will discontinue abx, once his oxygen requirements are lower. In regards to his MRSA OM of the right foot, which is complicated by gangrenous changes in the right foot would need the continuation of vancomycin pending vanc levels. Pending vascular and Podiatry evaluation. Plan for an amputation on Thursday for which he will be kept n.p.o. on 04/06/17 after midnight. The peticheal patches, and gangrene could have been atherogenic emboli that might have caused these findings with renal dysfunction, and gangrenous limbs. Check SPEP, C3,C4. The gangrenous foot needs to be monitored closely, to make sure that it is not a source of infection. Circulatory: There was an elevated troponin, which peaked at 6.64 which was thought be likely due to type 2 NC. Since, he has biventricular pacer for the tx of complete heart block the EKG changes werent very apparent to suggest NSTEMI. He also seems to be volume overloaded, and would need active diuresis which monitoring the sr creatinine closely. Follow echocardiogram. Dr Avery, joinery patternmaker advising. Metabolic- Continues to have PARRIS secondary to hypoperfusion, or embolism. Would check SPEP. Use diuretics, as the kidney function allows. Dr. Price is advising. In regards to his type 1 diabete, he is being given d5 1/2 NS because his po intake is not very reliable. However, would continue his inuslin on tidac scale for now, and would change it to npo sliding scale if the continues to not eating at all. Regardless, would change to npo sliding scale at midnight. Housekeepin. Diet- heart healthy diet, change to npo at midnight. 2. Lines- iv line. PICC line was pulled out by the pt. Plan to place the PICC line at somepoint. 3. Land catheter. 4. Pressors- none. 5. Ventilator- none. BiPAP none. 6. Abx- Vanc + Ceftaz. Code Status - DNR/DNI Problem List: 1. PARRIS (acute kidney injury) 2. Osteomyelitis 3. Peripheral vascular disease Pain Ratin Tomorrow's Labs & Rationales: cbc icu bundle. Plan DVT/Prophylaxis: pharmacological
[2017-04-06 08:00] VITALS: BP 130/70
--- NOTE | 2017-04-06 09:48 | PN- Nephrology ---
Assessment/Plan Assessment: 1. PARRIS: suspect ATN in setting of pneumonia, IV Vanco, & IA; can't r/o hypovolemic prerenal component, but w recent IA & ? vasc congestion on CXR --> do not favor trial of volume expansion. Atheroembolic dx post recent PCI can't be excluded. U/a not suggestive of acute GN or AIN. Would exclude paraprotein but doubt. No renal replacement indication. Not grossly overloaded on exam & do not favor diuresis 2. CKD: mild-mod, stage 2-3; baseline Cr low 1s --> etiology presumed DM & HTN Suggestion: Echocardogram SPEP Hold diuretics Subjective Subjective: Awake - denies cough or SOB No CP No gross uremic sx Urine output improving Objective Vital Signs and I&Os Vital Signs Date Time Temp Pulse Resp B/P B/P Pulse O2 O2 Flow FiO2 Mean Ox Delivery Rate 04/06 0853 103 143/61 04/06 0850 105 143/61 04/06 0800 Nasal Cannula 04/06 0759 93 Nasal 85% Cannula 04/06 0400 95 Part 65% ReBreather 04/06 0000 88 Nasal 70% Cannula 04/06 0000 84 Nasal 55% Cannula 04/05 2300 97.2 65 20 120/50 88 Nasal 70% Cannula 04/05 2000 94 Nasal 55% Cannula 04/05 1600 95 Nasal 65% Cannula 04/05 1600 99.2 70 18 90/44 95 Nasal 65% Cannula 04/05 1200 92 Nasal 65% Cannula 04/05 0940 113 130/60 04/05 0939 113 130/60 Intake & Output 04/06 1600 04/06 0400 04/05 1600 04/05 0400 04/04 1600 04/04 0400 Intake Total 414 374 310 10 955 600 Output Total 350 220 295 365 800 750 Balance 64 154 15 -355 155 -150 Intake, IV 414 374 250 925 600 Intake, Oral 60 10 30 0 Number 0 0 0 0 1 1 Bowel Movements Output, Urine 350 220 295 365 800 750 Physical Exam General Appearance: no apparent distress, alert, awake, Hi flow O2 by NC Head: atraumatic, normal appearance Ears, Nose, Throat: normal ENT inspection Respiratory: no respiratory distress, decreased breath sounds Cardiovascular: regular rate/rhythm, friction rub (none) Abdomen: soft, non-tender, no organomegaly Back: no sacral edema Extremities: R ft gangrene Neurologic/Psychiatric: awake, alert Skin: rash (peticheal L leg & ft) Current Medications: Current Medications Sig/Coral Start time Last Medication Dose Route Stop Time Status Admin Acetaminophen 500 MG TID 04/03 1156 AC 04/05 PO 0939 Amlodipine Besylate 5 MG DAILY 04/03 1200 AC 04/06 PO 0853 Aspirin 81 MG DAILY 04/04 1000 AC 04/06 PO 0850 Atorvastatin Calcium 40 MG 1700 04/03 1700 AC 04/04 PO 1748 Ceftazidime 1,000 MG 0600,1800 04/06 0600 AC IV Ceftazidime 1,000 MG 1600,0400 04/04 1600 DC 04/06 IV 0616 Dextrose 12.5 GM ONCE ONE 04/05 1915 DC 04/05 IV 04/05 1916 1730 Dextrose/Water 1,000 ML Q20H 04/05 1645 AC 04/05 IV 1644 Fluticasone 2 SPRAY DAILY 04/03 1155 AC Propionate THOMAS Heparin Sodium 5,000 UNIT Q8 04/03 1400 AC 04/06 (Porcine) SC 0615 Insulin Aspart 0 TIDAC/HS 04/04 2100 AC 04/06 SC 0850 Insulin Detemir 6 UNITS DAILY 04/06 1000 AC 04/06 SC 0851 Insulin Detemir 6 UNITS BID 04/05 2200 DC SC Insulin Detemir 8 UNITS BID 04/05 1000 DC 04/05 SC 0953 Metoprolol Succinate 25 MG DAILY 04/03 1714 AC 04/06 PO 0850 Morphine Sulfate 2 MG Q4P PRN 04/04 1845 AC 04/06 IV 0912 Pregabalin 50 MG TID 04/03 1155 AC 04/06 PO 0850 Vancomycin HCl 1,000 MG ONCE ONE 04/05 1045 DC 04/05 Dextrose/Water 250 ML IV 04/05 1144 1227 Results Pertinent Lab Results: Laboratory Tests 04/06 04/05 0424 0435 Chemistry Sodium (137 - 145 mmol/L) 140 139 Potassium (3.5 - 5.1 mmol/L) 5.0 5.5 H Chloride (98 - 107 mmol/L) 100 100 Carbon Dioxide (22 - 30 mmol/L) 28 27 Anion Gap (5 - 16) 12 12 BUN (9 - 20 mg/dL) 63 H 50 H Creatinine (0.7 - 1.2 mg/dL) 2.0 H 1.8 H Estimated GFR (>60 ml/min) 33 L 38 L Glucose (65 - 99 mg/dL) 119 H 177 H Calcium (8.4 - 10.2 mg/dL) 8.3 L 8.4 Phosphorus (2.5 - 4.5 mg/dL) 4.1 4.2 Magnesium (1.6 - 2.3 mg/dL) 2.6 H 2.2 Total Bilirubin (0.2 - 1.3 mg/dL) 0.6 0.6 AST (17 - 59 U/L) 53 74 H ALT (21 - 72 U/L) 46 51 Albumin (3.5 - 5.0 g/dL) 3.0 L 2.9 L Hematology CBC w Diff NO MAN DIFF REQ NO MAN DIFF REQ WBC (4.8 - 10.8 /CUMM) 10.4 11.7 H RBC (4.70 - 6.10 /CUMM) 2.70 L 2.54 L Hgb (14.0 - 18.0 G/DL) 8.2 L 7.8 L Hct (42 - 52 %) 25.0 L 23.5 L MCV (80.0 - 94.0 FL) 92.4 92.6 MCH (27.0 - 31.0 PG) 30.2 30.7 MCHC (33.0 - 37.0 G/DL) 32.7 L 33.2 RDW (11.5 - 14.5 %) 13.6 13.5 Plt Count (130 - 400 /CUMM) 415 H 408 H MPV (7.4 - 10.4 FL) 8.2 8.6 Gran % (42.2 - 75.2 %) 82.2 H 87.7 H Lymphocytes % (20.5 - 51.1 %) 11.9 L 7.4 L Monocytes % (1.7 - 9.3 %) 4.5 4.7 Eosinophils % (0 - 5 %) 0.6 0 Basophils % (0.0 - 2.0 %) 0.8 0.2 Absolute Granulocytes (1.4 - 6.5 /CUMM) 8.6 H 10.3 H Absolute Lymphocytes (1.2 - 3.4 /CUMM) 1.2 0.9 L Absolute Monocytes (0.10 - 0.60 /CUMM) 0.5 0.5 Absolute Eosinophils (0.0 - 0.7 /CUMM) 0.1 0 Absolute Basophils (0.0 - 0.2 /CUMM) 0.1 0 Toxicology Random Vancomycin (ug/ml) 14.7 04/04 04/04 04/04 2332 1420 1400 Blood Gas pH (7.35 - 7.45 PH) 7.47 H pCO2 (35 - 45 TORR) 33 L pO2 (80 - 100 TORR) 54 L HCO3 (21 - 28 MEQ/L) 23 ABG O2 Sat (Measured) (>96.0 %) 87.0 L P-50 (Temp Corrected) N Carboxyhemoglobin (1.5 - 5.0 %) 0.1 L O2 Concentration % 5L Temperature (97.0 - 100.0 FARH) 97.4 O2 Delivery Method N/C Chemistry Sodium (137 - 145 mmol/L) 138 135 L Potassium (3.5 - 5.1 mmol/L) 4.6 5.4 H Chloride (98 - 107 mmol/L) 98 97 L Carbon Dioxide (22 - 30 mmol/L) 27 24 Anion Gap (5 - 16) 12 13 BUN (9 - 20 mg/dL) 47 H 45 H Creatinine (0.7 - 1.2 mg/dL) 1.6 H 1.4 H Estimated GFR (>60 ml/min) 43 L 50 L BUN/Creatinine Ratio (7 - 25 %) 29.4 H Glucose (65 - 99 mg/dL) 302 H Calcium (8.4 - 10.2 mg/dL) 8.5 Phosphorus (2.5 - 4.5 mg/dL) 4.0 Magnesium (1.6 - 2.3 mg/dL) 2.2 Total Bilirubin (0.2 - 1.3 mg/dL) 0.6 AST (17 - 59 U/L) 90 H ALT (21 - 72 U/L) 50 Troponin I (<0.11 ng/ml) 2.02 *H [id number] Pept (<125 pg/mL) 88570 H Albumin (3.5 - 5.0 g/dL) 3.2 L Miscellaneous Phlebotomy Draw Site L BRACHIAL Toxicology Acetone Level (NEGATIVE) NEGATIVE 04/04 04/04 04/03 0601 0016 4552 Chemistry Sodium (137 - 145 mmol/L) 139 Potassium (3.5 - 5.1 mmol/L) 4.4 Chloride (98 - 107 mmol/L) 98 Carbon Dioxide (22 - 30 mmol/L) 29 Anion Gap (5 - 16) 12 BUN (9 - 20 mg/dL) 38 H Creatinine (0.7 - 1.2 mg/dL) 1.4 H Estimated GFR (>60 ml/min) 50 L BUN/Creatinine Ratio (7 - 25 %) 27.1 H Magnesium (1.6 - 2.3 mg/dL) 2.2 Troponin I (<0.11 ng/ml) 3.81 *H 6.64 *H Cancelled Hematology CBC w Diff NO MAN DIFF REQ WBC (4.8 - 10.8 /CUMM) 15.1 H RBC (4.70 - 6.10 /CUMM) 3.01 L Hgb (14.0 - 18.0 G/DL) 9.4 L Hct (42 - 52 %) 27.7 L MCV (80.0 - 94.0 FL) 92.2 MCH (27.0 - 31.0 PG) 31.1 H MCHC (33.0 - 37.0 G/DL) 33.8 RDW (11.5 - 14.5 %) 13.8 Plt Count (130 - 400 /CUMM) 484 H MPV (7.4 - 10.4 FL) 8.6 Gran % (42.2 - 75.2 %) 87.2 H Lymphocytes % (20.5 - 51.1 %) 7.6 L Monocytes % (1.7 - 9.3 %) 4.3 Eosinophils % (0 - 5 %) 0.7 Basophils % (0.0 - 2.0 %) 0.2 Absolute Granulocytes (1.4 - 6.5 /CUMM) 13.1 H Absolute Lymphocytes (1.2 - 3.4 /CUMM) 1.1 L Absolute Monocytes (0.10 - 0.60 /CUMM) 0.7 H Absolute Eosinophils (0.0 - 0.7 /CUMM) 0.1 Absolute Basophils (0.0 - 0.2 /CUMM) 0 Toxicology Random Vancomycin (ug/ml) 10.2 04/03 0204/03 1725 1150 1150 Chemistry Troponin I (<0.11 ng/ml) 6.11 *H Urines Urinalysis MOD H Urine Color (YEL,AMB,STR) YEL Urine Clarity (CLEAR) HAZY H Urine pH (5.0 - 8.0) 6.0 Ur Specific [place] (1.001 - 1.035) 1.025 Urine Protein (NEG,<30 MG/DL) TRACE H Urine Ketones (NEG) NEG Urine Nitrite (NEG) NEG Urine Bilirubin (NEG) NEG Urine Urobilinogen (0.1 - 1.0 EU/dl) 0.2 Ur Leukocyte Esterase (NEG) NEG Ur Microscopic SEDIMENT EXAMINED Urine RBC (0 - 5 /HPF) 1-3 Urine WBC (0 - 2 /HPF) RARE Ur Eosinophil Smear (NONE) NONE Ur Epithelial Cells (NONE,FEW) RARE Urine Bacteria (NEG/NONE) RARE H Hyaline Casts (0/LPF) 1-3 H Urine Mucus (FEW,NONE) RARE Urine Hemoglobin (NEG) SMALL H Urine Glucose (N MG/DL) 100 H 02 02/ 1113 1101 Coagulation PT Cancelled INR Cancelled Hematology CBC w Diff MAN DIFF ORDERED WBC (4.8 - 10.8 /CUMM) 16.1 H RBC (4.70 - 6.10 /CUMM) 2.86 L Hgb (14.0 - 18.0 G/DL) 8.9 L Hct (42 - 52 %) 26.5 L MCV (80.0 - 94.0 FL) 92.5 MCH (27.0 - 31.0 PG) 31.1 H MCHC (33.0 - 37.0 G/DL) 33.6 RDW (11.5 - 14.5 %) 13.1 Plt Count (130 - 400 /CUMM) 408 H MPV (7.4 - 10.4 FL) 8.3 Gran % (42.2 - 75.2 %) 93.0 H Lymphocytes % (20.5 - 51.1 %) 3.4 L Monocytes % (1.7 - 9.3 %) 3.1 Eosinophils % (0 - 5 %) 0.1 Basophils % (0.0 - 2.0 %) 0.4 Absolute Granulocytes (1.4 - 6.5 /CUMM) 15.0 H Segmented Neutrophils (42.2 - 75.2 %) 85 H Band Neutrophils (0.0 - 5.0 %) 7 H Absolute Lymphocytes (1.2 - 3.4 /CUMM) 0.5 L Lymphocytes (20.5 - 51.1 %) 3 L Monocytes (1.7 - 9.3 %) 4 Absolute Monocytes (0.10 - 0.60 /CUMM) 0.5 Eosinophils (0 - 5.0 %) 1 Absolute Eosinophils (0.0 - 0.7 /CUMM) 0 Absolute Basophils (0.0 - 0.2 /CUMM) 0.1 Normocytic RBCs VERIFIED Normochromic RBCs VERIFIED Imaging/Other Studies: CXR: SERVICE DATE: 04/05/17- EXAM TYPE: RAD - XRY-PORTABLE CHEST XRAY EXAMINATION: XR PORTABLE CHEST CLINICAL INFORMATION: Edema shortness of breath COMPARISON: 1 day earlier TECHNIQUE: Portable frontal view of the chest was obtained. FINDINGS: Diffuse infiltrates has not changed allowing variation in technique, cardiac device projecting over the RIGHT hemithorax unchanged, heart is enlarged, there is probably mild underlying vascular congestion. Bilateral subpulmonic pleural effusions. IMPRESSION: Overall no changes above CT: KIDNEYS AND URETERS: Mild bilateral perinephric stranding similar compared to prior CT. The kidneys are otherwise unremarkable without hydronephrosis or contour abnormality. Multiple renal calcifications likely a combination of vascular calcifications or nephrolithiasis. No evidence of hydroureter.
--- NOTE | 2017-04-06 10:07 | PN- Cardiology ---
Subjective Subjective: The patient is in ICU. His troponin increased to over 6. His BUN and creatinine are elevated as well. His chest x-ray documents CHF and he is on high flow oxygen at this time. He is not complaining of chest pain. his blood pressure is normal at this time. He remains in pacing rhythm. Objective Vital Signs and I&Os Vital Signs Date Time Temp Pulse Resp B/P B/P Pulse O2 O2 Flow FiO2 Mean Ox Delivery Rate 04/06 0853 103 143/61 04/06 0850 105 143/61 04/06 0800 Nasal Cannula 04/06 0759 93 Nasal 85% Cannula 04/06 0400 95 Part 65% ReBreather 04/06 0000 88 Nasal 70% Cannula 04/06 0000 84 Nasal 55% Cannula 04/05 2300 97.2 65 20 120/50 88 Nasal 70% Cannula 04/05 2000 94 Nasal 55% Cannula 04/05 1600 95 Nasal 65% Cannula 04/05 1600 99.2 70 18 90/44 95 Nasal 65% Cannula 04/05 1200 92 Nasal 65% Cannula Intake & Output 04/06 1600 04/06 0800 04/06 0000 04/05 1600 04/05 0800 04/05 0000 Intake Total 414 374 310 0 10 Output Total 350 220 125 170 365 Balance 64 154 185 -170 -355 Intake, IV 414 374 250 Intake, Oral 60 0 10 Number 0 0 0 0 0 Bowel Movements Output, Urine 350 220 125 170 365 Physical Exam: Elderly-appearing man in mild distress HEENT exam unremarkable Chest scattered rhonchi and rales Heart regular rhythm no murmurs, soft heart sounds Extremities unchanged Current Medications: Current Medications Sig/Coral Start time Last Medication Dose Route Stop Time Status Admin Acetaminophen 500 MG TID 04/03 1156 AC 04/05 PO 0939 Amlodipine Besylate 5 MG DAILY 04/03 1200 AC 04/06 PO 0853 Aspirin 81 MG DAILY 04/04 1000 AC 04/06 PO 0850 Atorvastatin Calcium 40 MG 1700 04/03 1700 AC 04/04 PO 1748 Ceftazidime 1,000 MG 0600,1800 04/06 0600 AC IV Ceftazidime 1,000 MG 1600,0400 04/04 1600 DC 04/06 IV 0616 Dextrose 12.5 GM ONCE ONE 04/05 1915 DC 04/05 IV 04/05 191 1730 Dextrose/Water 1,000 ML Q20H 04/05 1645 AC 04/05 IV 1644 Fluticasone 2 SPRAY DAILY 04/03 1155 AC Propionate THOMAS Heparin Sodium 5,000 UNIT Q8 04/03 1400 AC 04/06 (Porcine) SC 0615 Insulin Aspart 0 TIDAC/HS 04/04 2100 AC 04/06 SC 0850 Insulin Detemir 6 UNITS DAILY 04/06 1000 AC 04/06 SC 0851 Insulin Detemir 6 UNITS BID 04/05 2200 DC SC Insulin Detemir 8 UNITS BID 04/05 1000 DC 04/05 SC 0953 Metoprolol Succinate 25 MG DAILY 04/03 1714 AC 04/06 PO 0850 Morphine Sulfate 2 MG Q4P PRN 04/04 1845 AC 04/06 IV 0912 Pregabalin 50 MG TID 04/03 1155 AC 04/06 PO 0850 Vancomycin HCl 1,000 MG ONCE ONE 04/05 1045 DC 04/05 Dextrose/Water 250 ML IV 04/05 1144 1227 Results Last 48 Hrs of Labs/Mics: Laboratory Tests 04/06/17 0424: Anion Gap 12, Estimated GFR 33 L, Glucose 119 H, Calcium 8.3 L, Phosphorus 4.1, Magnesium 2.6 H, Total Bilirubin 0.6, AST 53, ALT 46, Albumin 3.0 L, CBC w Diff NO MAN DIFF REQ, RBC 2.70 L, MCV 92.4, MCH 30.2, MCHC 32.7 L, RDW 13.6, MPV 8.2, Gran % 82.2 H, Lymphocytes % 11.9 L, Monocytes % 4.5, Eosinophils % 0.6, Basophils % 0.8, Absolute Granulocytes 8.6 H, Absolute Lymphocytes 1.2, Absolute Monocytes 0.5, Absolute Eosinophils 0.1, Absolute Basophils 0.1 04/05/17 0435: Anion Gap 12, Estimated GFR 38 L, Glucose 177 H, Calcium 8.4, Phosphorus 4.2, Magnesium 2.2, Total Bilirubin 0.6, AST 74 H, ALT 51, Albumin 2.9 L, CBC w Diff NO MAN DIFF REQ, RBC 2.54 L, MCV 92.6, MCH 30.7, MCHC 33.2, RDW 13.5, MPV 8.6, Gran % 87.7 H, Lymphocytes % 7.4 L, Monocytes % 4.7, Eosinophils % 0, Basophils % 0.2, Absolute Granulocytes 10.3 H, Absolute Lymphocytes 0.9 L, Absolute Monocytes 0.5, Absolute Eosinophils 0, Absolute Basophils 0, Random Vancomycin 14.7 04/04/17 2332: Anion Gap 12, Estimated GFR 43 L, BUN/Creatinine Ratio 29.4 H 04/04/17 1420: pH 7.47 H, pCO2 33 L, pO2 54 L, HCO3 23, ABG O2 Sat (Measured) 87.0 L, P-50 (Temp Corrected) N, Carboxyhemoglobin 0.1 L, O2 Concentration % 5L, Temperature 97.4, O2 Delivery Method N/C, Phlebotomy Draw Site L BRACHIAL 04/04/17 1400: Anion Gap 13, Estimated GFR 50 L, Glucose 302 H, Calcium 8.5, Phosphorus 4.0, Magnesium 2.2, Total Bilirubin 0.6, AST 90 H, ALT 50, Troponin I 2.02 *H, Pro-B -Natriuretic Pept 48469 H, Albumin 3.2 L, Acetone Level NEGATIVE Microbiology 04/05 1425 NASOPHARYN: Influenza Virus A & B Rapid Smear - COMP 04/04 1700 URINE ROUT: Urine Culture - COMP 04/04 1700 GI: Surveillance Culture - COMP 04/04 1500 UPPER RESP: Surveillance Culture - COMP METH RESIST STAPH AUREUS Recent Imaging Studies: PATIENT: JIM WASSERMAN PRESENT AGE: 71 PATIENT ACCOUNT NO: [id number] : 47 LOCATION: [facility] ORDERING PHYSICIAN: Toñito Cardona MD SERVICE DATE: 04/05/17- EXAM TYPE: RAD - XRY-PORTABLE CHEST XRAY EXAMINATION: XR PORTABLE CHEST CLINICAL INFORMATION: Edema shortness of breath COMPARISON: 1 day earlier TECHNIQUE: Portable frontal view of the chest was obtained. FINDINGS: Diffuse infiltrates has not changed allowing variation in technique, cardiac device projecting over the RIGHT hemithorax unchanged, heart is enlarged, there is probably mild underlying vascular congestion. Bilateral subpulmonic pleural effusions. IMPRESSION: Overall no changes above. DICTATED BY: Patrick Lentz MD DATE/TIME DICTATED:04/05/172345 LPN CMA:INES DATE/TIME TRANSCRIBED:04/05/172345 CONFIDENTIAL, DO NOT COPY WITHOUT APPROPRIATE AUTHORIZATION. <Electronically signed in Other Vendor System> SIGNED BY: Patrick Lentz MD [id number] Assessment/Plan Assessment/Plan The patient has multiple problems. He has acute kidney injury, elevated troponin, congestive heart failure, hypoxia. I recommend IV diuresis. We will have to watch his renal function carefully but I don't think he is volume depleted at all. I will review his echocardiogram. I believe plans are for transmetatarsal amputation tomorrow but he is a little unstable medically for anesthesia at this point. Continue telemetry? Not applicable
--- NOTE | 2017-04-06 10:13 | PN- Infect Dx ---
Subjective Subjective: Afebrile. He does not report any complaints. He apparently pulled out his PICC yesterday. Objective Last 24 Hrs of Vital Signs/I&O Vital Signs Date Time Temp Pulse Resp B/P B/P Pulse O2 O2 Flow FiO2 Mean Ox Delivery Rate 04/06 0853 103 143/61 04/06 0850 105 143/61 04/06 0800 Nasal Cannula 04/06 0759 93 Nasal 85% Cannula 04/06 0400 95 Part 65% ReBreather 04/06 0000 88 Nasal 70% Cannula 04/06 0000 84 Nasal 55% Cannula 04/05 2300 97.2 65 20 120/50 88 Nasal 70% Cannula 04/05 2000 94 Nasal 55% Cannula 04/05 1600 95 Nasal 65% Cannula 04/05 1600 99.2 70 18 90/44 95 Nasal 65% Cannula 04/05 1200 92 Nasal 65% Cannula Intake & Output 04/06 1600 04/06 0800 04/06 0000 Intake Total 414 374 Output Total 350 220 Balance 64 154 Intake, IV 414 374 Number 0 0 Bowel Movements Output, Urine 350 220 Physical Exam Other Physical Findings: He is more awake and alert in no acute distress on high flow oxygen Lungs rhonchi and scattered crackles on the right Heart regular rhythm with no murmur Abdomen is soft, nontender with positive bowel sounds Extremities necrotic right second and third toes; left foot petechial/ purpuric rash Land catheter is in place Results Last 24 Hours of Lab Results: Laboratory Tests 04/06 423 Chemistry Sodium (137 - 145 mmol/L) 140 Potassium (3.5 - 5.1 mmol/L) 5.0 Chloride (98 - 107 mmol/L) 100 Carbon Dioxide (22 - 30 mmol/L) 28 Anion Gap (5 - 16) 12 BUN (9 - 20 mg/dL) 63 H Creatinine (0.7 - 1.2 mg/dL) 2.0 H Estimated GFR (>60 ml/min) 33 L Glucose (65 - 99 mg/dL) 119 H Calcium (8.4 - 10.2 mg/dL) 8.3 L Phosphorus (2.5 - 4.5 mg/dL) 4.1 Magnesium (1.6 - 2.3 mg/dL) 2.6 H Total Bilirubin (0.2 - 1.3 mg/dL) 0.6 AST (17 - 59 U/L) 53 ALT (21 - 72 U/L) 46 Albumin (3.5 - 5.0 g/dL) 3.0 L Hematology CBC w Diff NO MAN DIFF REQ WBC (4.8 - 10.8 /CUMM) 10.4 RBC (4.70 - 6.10 /CUMM) 2.70 L Hgb (14.0 - 18.0 G/DL) 8.2 L Hct (42 - 52 %) 25.0 L MCV (80.0 - 94.0 FL) 92.4 MCH (27.0 - 31.0 PG) 30.2 MCHC (33.0 - 37.0 G/DL) 32.7 L RDW (11.5 - 14.5 %) 13.6 Plt Count (130 - 400 /CUMM) 415 H MPV (7.4 - 10.4 FL) 8.2 Gran % (42.2 - 75.2 %) 82.2 H Lymphocytes % (20.5 - 51.1 %) 11.9 L Monocytes % (1.7 - 9.3 %) 4.5 Eosinophils % (0 - 5 %) 0.6 Basophils % (0.0 - 2.0 %) 0.8 Absolute Granulocytes (1.4 - 6.5 /CUMM) 8.6 H Absolute Lymphocytes (1.2 - 3.4 /CUMM) 1.2 Absolute Monocytes (0.10 - 0.60 /CUMM) 0.5 Absolute Eosinophils (0.0 - 0.7 /CUMM) 0.1 Absolute Basophils (0.0 - 0.2 /CUMM) 0.1 Last 24 Hours of [place] Results: Rapid flu swab April 05 negative Urine culture April 04 negative Assessment/Plan Impression: Stable, now on high flow oxygen, for increased respiratory distress, possibly secondary to an aspiration pneumonia, with an increased density in the right upper lobe on his recent chest x-ray, versus CHF, though he is not felt to be fluid overloaded. He remains afebrile with white blood cell count now normal on Ceftazidime Day 2 of treatment for possible aspiration pneumonia, and Vancomycin , which must be dosed prn given his worsening renal insufficiency, now 13 days status post revisional partial first ray resection of the right foot, with progression of gangrene to the second and third toes of the right foot. His renal insufficiency may be multifactorial, with Renal input noted. Suggestion: 1. Further management of his fluid status per Cardiology and Renal 2. Podiatry follow-up regarding right transmetatarsal amputation 3. Consider need for Vascular surgery per Podiatry 4. Add a random Vancomycin level to this morning's labs and re-dose with Vancomycin 1 g IV 1 if less than 15 5. Continue Ceftazidime
--- NOTE | 2017-04-06 11:14 | Cons- Pulmonary ---
General Information and HPI Consulting Request Date of Consult: 04/06/17 Requested By: med team History of Present Illness: 71 yo male with type 1 DM, PVD with gangrous right toes, CAD. He is said to have nephropahty although never had documented high grade proteinuria and recent creatinines around 1.1. He recently was in the hospital for gangrenous changes to right toes, was getting Vancomycin at [facility] and was schedule to have TMA amputation. He fell at [facility], unclear if had syncope, and was brought to . Troponins in the hospital have been elevated has paced rhythm so EKG difficult to interpret. He developed worsened SOB yesterday, mental status has deteriorated and now urine ouput has decreased. Creatinine was 1.8 on admission , fell sliglty but back up to 1.8 today. CXR/CT shows effusions, multiple ground glass infiltrates. Since admission he was noted to have significant worsening hypoxemia and now requiring high flow oxygen and he continues to be hypoxemic. Since she's been here he is on broad-spectrum antibiotics for suspected aspiration pneumonia as he has a consolidation. He was unable to give good history as he was slightly confused. Significant data reviewed CT scan of the chest abdomen and pelvis showed moderate bilateral pleural effusion with extensive groundglass opacities representing pulmonary edema versus infection noted. Abdominal CT was unremarkable Chest x-ray done recently did show bilateral pulmonary infiltrates suggestive of vascular congestion with subpulmonic effusion. Lower extremity Doppler was unremarkable His cultures are pending his nasal swab was positive for MRSA previously he has had multiple other organisms. His recent echocardiogram reviewed which showed reduced ejection fraction of 45- 50% with diastolic dysfunction with elevated pulmonary blood pressure. Allergies/Medications Allergies: Coded Allergies: NO KNOWN ALLERGIES (12/07/15) Home Med List: Acetaminophen (Tylenol Extra Strength) 500 MG TABLET 1 TAB PO TID right foot pain Amlodipine Besylate 10 MG TABLET 1 TAB PO DAILY high blood pressure Aspirin (Children's Aspirin) 81 MG TAB.CHEW 1 TAB PO DAILY HEART HEALTH ( Reported) Atorvastatin Calcium (Lipitor) 40 MG TABLET 1 TAB PO DAILY HLD Fluticasone Furoate (Flonase Sensimist) 27.5 MCG/ACTUATION SPRAY.SUSP 2 PUF NS DAILY ALLERGY (Reported) Insulin Aspart (Novolog) 100 UNIT/ML VIAL 0 SC QHS DIABETES LESS THAN GLUCOSE 250, GIVE NO INSULIN 251-300 GIVE 2 UNITS 301-350 GIVE 3 UNITS 351-400 GIVE 4 UNITS Insulin Aspart (Novolog) 100 UNIT/ML VIAL 0 SC TIDAC DIABETES GLUCOSE LESS THAN 80 GIVE NO INSULIN GLUCOSE 80-150 GIVE 3 UNITS 151-200 GIVE 5 UNITS 201-250 GIVE 6 UNITS 251-300 GIVE 7 UNITS 301-350 GIVE 8 UNITS 351-400 GIVE 9 UNITS greater than 400 give 9 units and CALL MD Insulin Detemir (Levemir) 100 UNIT/ML VIAL 10 UNITS SC BID DIABETES Losartan (Cozaar) 100 MG TABLET 1 TAB PO DAILY HYPERTENSION (Reported) Metoprolol Succ XL (Toprol XL) 25 MG TAB 1 TAB PO DAILY HYPERTENSION ( Reported) Pregabalin (Lyrica) 50 MG CAPSULE 1 CAP PO TID NEUROPATHY (Reported) Vancomycin HCl 1 GRAM VIAL.PORT 1 VIAL IV BID OSTEOMYELITIS GIVE UNTIL March. Review of Systems Review of Systems Constitutional: Reports: see HPI. Past History Travel History Traveled to [place] past 21 day No Medical History Blood Transfusion Hx: No Neurological: peripheral neuropathy EENT: cataracts, diabetic retinopathy Cardiovascular: CAD, hypertension, hyperlipidemia, Pacemaker (R) Respiratory: bronchitis Gastrointestinal: NONE Hepatic: NONE Renal: NONE Musculoskeletal: fracture, right foot osteomyeltitis w/ wound vac at right great toe (Mar 2017) Psychiatric: NONE Endocrine: diabetes type 1 Blood Disorders: NONE Cancer(s): NONE HEAD OF CONSERVATION/Reproductive: NONE Surgical History Surgical History: pacemaker right great toe amputation Feb 2017 Family History Relations & Conditions If Any: MOTHER FH: myocardial infarction Psychosocial History Services at Home: None Primary Language: Estonian Smoking Status: Former Smoker Functional Ability ADLs Independent: dressing, eating, toileting, bathing. Ambulation: independent IADLs Independent: shopping, housework, finances, food prep, telephone, transportation , medication admin. Exam & Diagnostic Data Last 24 Hrs of Vital Signs/I&O Vital Signs Date Time Temp Pulse Resp B/P B/P Pulse O2 O2 Flow FiO2 Mean Ox Delivery Rate 04/06 0853 103 143/61 04/06 0850 105 143/61 04/06 0800 Nasal Cannula 04/06 0800 99.1 106 32 130/70 93 Nasal 85% Cannula 04/06 0759 93 Nasal 85% Cannula 04/06 0400 95 Part 65% ReBreather 04/06 0000 88 Nasal 70% Cannula 04/06 0000 84 Nasal 55% Cannula 04/05 2300 97.2 65 20 120/50 88 Nasal 70% Cannula 04/05 2000 94 Nasal 55% Cannula 04/05 1600 95 Nasal 65% Cannula 04/05 1600 99.2 70 18 90/44 95 Nasal 65% Cannula 04/05 1200 92 Nasal 65% Cannula Intake & Output 04/06 1600 04/06 0800 04/06 0000 Intake Total 414 374 Output Total 350 220 Balance 64 154 Intake, IV 414 374 Number 0 0 Bowel Movements Output, Urine 350 220 Last 48 Hrs of Labs/[place]: Laboratory Tests 04/06/17 1020: Random Vancomycin Pending 04/06/17 0500: Prot Electrophoresis Pending, Total Protein (PEP) Pending, Albumin % (PEP) Pending, [id number]-[id number] Pending, Dzqtc-6-Coeqnxjby Pending, Omkd-3-Qvsefimi Pending, Ovax-6-Pukylkad Pending, Gamma Globulins Pending, Abnorm Protein Band 1 Pending, Abnorm Protein Band 2 Pending, Abnorm Protein Band 3 Pending, Complement C3 Pending, Complement C4 Pending 04/06/17 0424: Anion Gap 12, Estimated GFR 33 L, Glucose 119 H, Calcium 8.3 L, Phosphorus 4.1, Magnesium 2.6 H, Total Bilirubin 0.6, AST 53, ALT 46, Albumin 3.0 L, CBC w Diff NO MAN DIFF REQ, RBC 2.70 L, MCV 92.4, MCH 30.2, MCHC 32.7 L, RDW 13.6, MPV 8.2, Gran % 82.2 H, Lymphocytes % 11.9 L, Monocytes % 4.5, Eosinophils % 0.6, Basophils % 0.8, Absolute Granulocytes 8.6 H, Absolute Lymphocytes 1.2, Absolute Monocytes 0.5, Absolute Eosinophils 0.1, Absolute Basophils 0.1, Random Vancomycin 17.6 04/05/17 0435: Anion Gap 12, Estimated GFR 38 L, Glucose 177 H, Calcium 8.4, Phosphorus 4.2, Magnesium 2.2, Total Bilirubin 0.6, AST 74 H, ALT 51, Albumin 2.9 L, CBC w Diff NO MAN DIFF REQ, RBC 2.54 L, MCV 92.6, MCH 30.7, MCHC 33.2, RDW 13.5, MPV 8.6, Gran % 87.7 H, Lymphocytes % 7.4 L, Monocytes % 4.7, Eosinophils % 0, Basophils % 0.2, Absolute Granulocytes 10.3 H, Absolute Lymphocytes 0.9 L, Absolute Monocytes 0.5, Absolute Eosinophils 0, Absolute Basophils 0, Random Vancomycin 14.7 04/04/17 2332: Anion Gap 12, Estimated GFR 43 L, BUN/Creatinine Ratio 29.4 H 04/04/17 1420: pH 7.47 H, pCO2 33 L, pO2 54 L, HCO3 23, ABG O2 Sat (Measured) 87.0 L, P-50 (Temp Corrected) N, Carboxyhemoglobin 0.1 L, O2 Concentration % 5L, Temperature 97.4, O2 Delivery Method N/C, Phlebotomy Draw Site L BRACHIAL 04/04/17 1400: Anion Gap 13, Estimated GFR 50 L, Glucose 302 H, Calcium 8.5, Phosphorus 4.0, Magnesium 2.2, Total Bilirubin 0.6, AST 90 H, ALT 50, Troponin I 2.02 *H, Pro-B -Natriuretic Pept 03839 H, Albumin 3.2 L, Acetone Level NEGATIVE Microbiology 04/05 1425 NASOPHARYN: Influenza Virus A & B Rapid Smear - COMP 04/04 1700 URINE ROUT: Urine Culture - COMP 04/04 1700 GI: Surveillance Culture - COMP 04/04 1500 UPPER RESP: Surveillance Culture - COMP METH RESIST STAPH AUREUS Assessment/Plan Impression/Plan: He is more awake and alert in no acute distress on high flow oxygen Lungs rhonchi and scattered crackles on the right Heart regular rhythm with no murmur Abdomen is soft, nontender with positive bowel sounds Extremities necrotic right second and third toes; left foot petechial/ purpuric rash Land catheter is in place IMPRESSION This is a gentleman with previous history of diabetes type 1 with multiple complications including neuropathy, significant peripheral vascular disease, previous pacemaker far heart block, previous history of MRSA osteomyelitis with previous foot surgery in the left side with femoral angioplasty, worsening performance status, previous normal pulmonary function tests, multiple organ dysfunction, now has a following issues * Acute hypoxemic respiratory failure now requiring high flow oxygen related to combination of factors which include congestive heart failure both systolic and diastolic failure with bilateral probable aspiration pneumonitis no on broad- spectrum antibiotics. * Acute lung injury probably related to aspiration pneumonitis with * Significant peripheral vascular disease with gangrene and probable osteomyelitis of his left foot. Infectious disease, podiatry and I'll vascular surgery is following the patient * Type 1 diabetes with multiple organ dysfunction including diabetic nephropathy , neuropathy, peripheral vascular disease and retinopathy. * Worsening renal insufficiency since admission most likely related to combination of factors including his underlying diabetic kidney disease. As he recently did have an angiogram he may have at the right embolism * Reduced ejection fraction with EF of 45-50% with abnormal diastolic dysfunction which appears to be chronic * Severe peripheral vascular disease with dry gangrene of the left foot with probable osteomyelitis as well, patient appears to be not a great candidate for general anesthesia at this present moment Recommendation Hold diuresis Continue antibiotics per ID Continue high flow oxygen Keep his head of bed elevated Tried to have patient increase his by mouth intake Changes IV fluids to D5 half-normal saline as his by mouth intake is poor Start him on proton pump inhibitor Continue to follow his glucose closely Continue low-dose morphine Repeat chest x-ray tomorrow Ask ID whether he would need a PICC line and if okay with renal he might need a PICC line in the future Patient appears to be critically ill total time spent 40 minutes Consult Acknowledgment - Thank you for your consult request.
--- NOTE | 2017-04-06 11:16 | PN- Diabetes ---
Assessment/Plan Assessment: 70 y/o male, Hx of DM type 1 diagnosed when he was 14 years old. He was on an insulin pump with basal rate running at 0.9 units per hour in the past. His diabetes was complicated by neuropathy, retinopathy, nephropathy. Patient presented to the ED after sustaining an unwitnessed fall. He was admitted for positive troponin with peak troponin of 6.64, ongoing right foot infection and gangrene of 2nd toe and 3rd toe. He was transfered to ICU for SOB. IVF was discontinued and he is on high flow oxygen. His po intake has been poor and he has been confused. Currently he is on Levemir 6 units once a day, Novolog coverage before meals and Novolog coverage at bedtime. However, the coverage starts when his FSG is > 200. He is on D5W at 50 ml/hour. His FSGs were 56, 90 and 220. Plan: 1. continue the current insulin regimen for now; 2. monitor FSGs. 3. the goal of his glucose level is between 100 and 200. Please inform me if his FSG is above 250 twice and then his insulin regimen will be adjusted accoringly. will follow. Subjective Subjective: He is confused. Objective Last 24 Hrs of Vital Signs/I&O Vital Signs Date Time Temp Pulse Resp B/P B/P Pulse O2 O2 Flow FiO2 Mean Ox Delivery Rate 04/06 0853 103 143/61 04/06 0850 105 143/61 04/06 0800 Nasal Cannula 04/06 0800 99.1 106 32 130/70 93 Nasal 85% Cannula 04/06 0759 93 Nasal 85% Cannula 04/06 0400 95 Part 65% ReBreather 04/06 0000 88 Nasal 70% Cannula 04/06 0000 84 Nasal 55% Cannula 04/05 2300 97.2 65 20 120/50 88 Nasal 70% Cannula 04/05 2000 94 Nasal 55% Cannula 04/05 1600 95 Nasal 65% Cannula 04/05 1600 99.2 70 18 90/44 95 Nasal 65% Cannula 04/05 1200 92 Nasal 65% Cannula Intake & Output 04/06 1600 04/06 0800 02 0000 Intake Total 414 374 Output Total 350 220 Balance 64 154 Intake, IV 414 374 Number 0 0 Bowel Movements Output, Urine 350 220 Patient 180 lb Weight Findings Pertinent Lab/[place] Results: Laboratory Tests 04/06 04/06 04/06 1020 0500 0424 Chemistry Sodium (137 - 145 mmol/L) 140 Potassium (3.5 - 5.1 mmol/L) 5.0 Chloride (98 - 107 mmol/L) 100 Carbon Dioxide (22 - 30 mmol/L) 28 Anion Gap (5 - 16) 12 BUN (9 - 20 mg/dL) 63 H Creatinine (0.7 - 1.2 mg/dL) 2.0 H Estimated GFR (>60 ml/min) 33 L Glucose (65 - 99 mg/dL) 119 H Calcium (8.4 - 10.2 mg/dL) 8.3 L Phosphorus (2.5 - 4.5 mg/dL) 4.1 Magnesium (1.6 - 2.3 mg/dL) 2.6 H Total Bilirubin (0.2 - 1.3 mg/dL) 0.6 AST (17 - 59 U/L) 53 ALT (21 - 72 U/L) 46 Prot Electrophoresis Pending Total Protein (PEP) Pending Albumin (3.5 - 5.0 g/dL) 3.0 L Albumin % (PEP) Pending Ojtpt-0-Zjstaxinr Pending Buhtw-8-Qxtklbrox Pending Ykhd-6-Tlkdaqqn Pending Kqii-1-Nejimund Pending Gamma Globulins Pending Abnorm Protein Band 1 Pending Abnorm Protein Band 2 Pending Abnorm Protein Band 3 Pending Hematology CBC w Diff NO MAN DIFF REQ WBC (4.8 - 10.8 /CUMM) 10.4 RBC (4.70 - 6.10 /CUMM) 2.70 L Hgb (14.0 - 18.0 G/DL) 8.2 L Hct (42 - 52 %) 25.0 L MCV (80.0 - 94.0 FL) 92.4 MCH (27.0 - 31.0 PG) 30.2 MCHC (33.0 - 37.0 G/DL) 32.7 L RDW (11.5 - 14.5 %) 13.6 Plt Count (130 - 400 /CUMM) 415 H MPV (7.4 - 10.4 FL) 8.2 Gran % (42.2 - 75.2 %) 82.2 H Lymphocytes % (20.5 - 51.1 %) 11.9 L Monocytes % (1.7 - 9.3 %) 4.5 Eosinophils % (0 - 5 %) 0.6 Basophils % (0.0 - 2.0 %) 0.8 Absolute Granulocytes (1.4 - 6.5 /CUMM) 8.6 H Absolute Lymphocytes (1.2 - 3.4 /CUMM) 1.2 Absolute Monocytes (0.10 - 0.60 /CUMM) 0.5 Absolute Eosinophils (0.0 - 0.7 /CUMM) 0.1 Absolute Basophils (0.0 - 0.2 /CUMM) 0.1 Immunology Complement C3 Pending Complement C4 Pending Toxicology Random Vancomycin (ug/ml) 14.3 17.6
--- NOTE | 2017-04-06 11:24 | Cons- Vascular Surgery ---
General Information and HPI Consulting Request Date of Consult: 04/06/17 Requested By: Tamica LOZANO,Jackie Reason for Consult: Gangrene of right foot Source of Information: patient, family, old records Exam Limitations: confusion, poor historian History of Present Illness: 71 yo male with type 1 DM, PVD with gangrous right toes, CAD. In February he underwent a diagnostic right leg angiogram. He is being followed by podiatry and vascular surgery (Dr. Venegas). Since admission he was noted to have significant worsening hypoxemia and now requiring high flow oxygen and he continues to be hypoxemic. He denies significant pain in the right foot and vascular surgery as consult in for follow-up. Allergies/Medications Allergies: Coded Allergies: NO KNOWN ALLERGIES (12/07/15) Home Med List: Acetaminophen (Tylenol Extra Strength) 500 MG TABLET 1 TAB PO TID right foot pain Amlodipine Besylate 10 MG TABLET 1 TAB PO DAILY high blood pressure Aspirin (Children's Aspirin) 81 MG TAB.CHEW 1 TAB PO DAILY HEART HEALTH ( Reported) Atorvastatin Calcium (Lipitor) 40 MG TABLET 1 TAB PO DAILY HLD Fluticasone Furoate (Flonase Sensimist) 27.5 MCG/ACTUATION SPRAY.SUSP 2 PUF NS DAILY ALLERGY (Reported) Insulin Aspart (Novolog) 100 UNIT/ML VIAL 0 SC QHS DIABETES LESS THAN GLUCOSE 250, GIVE NO INSULIN 251-300 GIVE 2 UNITS 301-350 GIVE 3 UNITS 351-400 GIVE 4 UNITS Insulin Aspart (Novolog) 100 UNIT/ML VIAL 0 SC TIDAC DIABETES GLUCOSE LESS THAN 80 GIVE NO INSULIN GLUCOSE 80-150 GIVE 3 UNITS 151-200 GIVE 5 UNITS 201-250 GIVE 6 UNITS 251-300 GIVE 7 UNITS 301-350 GIVE 8 UNITS 351-400 GIVE 9 UNITS greater than 400 give 9 units and CALL Insulin Detemir (Levemir) 100 UNIT/ML VIAL 10 UNITS SC BID DIABETES Losartan (Cozaar) 100 MG TABLET 1 TAB PO DAILY HYPERTENSION (Reported) Metoprolol Succ XL (Toprol XL) 25 MG TAB 1 TAB PO DAILY HYPERTENSION ( Reported) Pregabalin (Lyrica) 50 MG CAPSULE 1 CAP PO TID NEUROPATHY (Reported) Vancomycin HCl 1 GRAM VIAL.PORT 1 VIAL IV BID OSTEOMYELITIS GIVE UNTIL March. Current Medications: Current Medications Sig/Coral Start time Last Medication Dose Route Stop Time Status Admin Acetaminophen 500 MG TID 04/03 1156 AC 04/05 PO 0939 Amlodipine Besylate 5 MG DAILY 04/03 1200 AC 04/06 PO 0853 Aspirin 81 MG DAILY 04/04 1000 AC 04/06 PO 0850 Atorvastatin Calcium 40 MG 1700 04/03 1700 AC 04/04 PO 1748 Ceftazidime 1,000 MG 0600,1800 04/06 0600 AC IV Ceftazidime 1,000 MG 1600,0400 04/04 1600 DC 04/06 IV 0616 Dextrose 12.5 GM ONCE ONE 04/05 1915 DC 04/05 IV 04/05 1916 1730 Dextrose/Water 1,000 ML Q20H 04/05 1645 AC 04/05 IV 1644 Fluticasone 2 SPRAY DAILY 04/03 1155 AC Propionate THOMAS Heparin Sodium 5,000 UNIT Q8 04/03 1400 AC 04/06 (Porcine) SC 0615 Insulin Aspart 0 TIDAC/HS 04/04 2100 AC 04/06 SC 0850 Insulin Detemir 6 UNITS DAILY 04/06 1000 AC 04/06 SC 0851 Insulin Detemir 6 UNITS BID 04/05 2200 DC SC Metoprolol Succinate 25 MG DAILY 04/03 1714 AC 04/06 PO 0850 Morphine Sulfate 2 MG Q4P PRN 04/04 1845 AC 04/06 IV 0912 Pregabalin 50 MG TID 04/03 1155 AC 04/06 PO 0850 Vancomycin HCl 1,000 MG ONCE ONE 04/05 1045 DC 04/05 Dextrose/Water 250 ML IV 04/05 1144 1227 Past History Medical History Blood Transfusion Hx: No Neurological: peripheral neuropathy EENT: cataracts, diabetic retinopathy Cardiovascular: CAD, hypertension, hyperlipidemia, Pacemaker (R) Respiratory: bronchitis Gastrointestinal: NONE Hepatic: NONE Renal: NONE Musculoskeletal: fracture, right foot osteomyeltitis w/ wound vac at right great toe (Mar 2017) Psychiatric: NONE Endocrine: diabetes type 1 Blood Disorders: NONE Cancer(s): NONE EMERGENCY CARE ATTENDANT/Reproductive: NONE Surgical History Pertinent Surgical History: pacemaker right great toe amputation Feb 2017 Family History Relations & Conditions If Any: MOTHER FH: myocardial infarction Psychosocial History Services at Home: None Primary Language: Nepali Smoking Status: Former Smoker Functional Ability ADLs Independent: dressing, eating, toileting, bathing. Ambulation: independent IADLs Independent: shopping, housework, finances, food prep, telephone, transportation , medication admin. Review of Systems Review of Systems Constitutional: Reports: see HPI. Exam & Diagnostic Data Vital Signs and I&O Vital Signs Date Time Temp Pulse Resp B/P B/P Pulse O2 O2 Flow FiO2 Mean Ox Delivery Rate 04/06 0853 103 143/61 04/06 0850 105 143/61 04/06 0800 Nasal Cannula 04/06 0800 99.1 106 32 130/70 93 Nasal 85% Cannula 04/06 0759 93 Nasal 85% Cannula 04/06 0400 95 Part 65% ReBreather 04/06 0000 88 Nasal 70% Cannula 04/06 0000 84 Nasal 55% Cannula 04/05 2300 97.2 65 20 120/50 88 Nasal 70% Cannula 04/05 2000 94 Nasal 55% Cannula 04/05 1600 95 Nasal 65% Cannula 04/05 1600 99.2 70 18 90/44 95 Nasal 65% Cannula 04/05 1200 92 Nasal 65% Cannula Intake & Output 04/06 1600 04/06 0800 04/06 0000 04/05 1600 04/05 0800 04/05 0000 Intake Total 414 374 310 0 10 Output Total 350 220 125 170 365 Balance 64 154 185 -170 -355 Intake, IV 414 374 250 Intake, Oral 60 0 10 Number 0 0 0 0 0 Bowel Movements Output, Urine 350 220 125 170 365 Patient 180 lb Weight Last 24 Hours of Labs: Laboratory Tests 04/06 04/06 04/06 1020 0500 0424 Chemistry Sodium (137 - 145 mmol/L) 140 Potassium (3.5 - 5.1 mmol/L) 5.0 Chloride (98 - 107 mmol/L) 100 Carbon Dioxide (22 - 30 mmol/L) 28 Anion Gap (5 - 16) 12 BUN (9 - 20 mg/dL) 63 H Creatinine (0.7 - 1.2 mg/dL) 2.0 H Estimated GFR (>60 ml/min) 33 L Glucose (65 - 99 mg/dL) 119 H Calcium (8.4 - 10.2 mg/dL) 8.3 L Phosphorus (2.5 - 4.5 mg/dL) 4.1 Magnesium (1.6 - 2.3 mg/dL) 2.6 H Total Bilirubin (0.2 - 1.3 mg/dL) 0.6 AST (17 - 59 U/L) 53 ALT (21 - 72 U/L) 46 Prot Electrophoresis Pending Total Protein (PEP) Pending Albumin (3.5 - 5.0 g/dL) 3.0 L Albumin % (PEP) Pending [id number] Pending [id number] Pending [id number] Pending [id number] Pending Gamma Globulins Pending Abnorm Protein Band 1 Pending Abnorm Protein Band 2 Pending Abnorm Protein Band 3 Pending Hematology CBC w Diff NO MAN DIFF REQ WBC (4.8 - 10.8 /CUMM) 10.4 RBC (4.70 - 6.10 /CUMM) 2.70 L Hgb (14.0 - 18.0 G/DL) 8.2 L Hct (42 - 52 %) 25.0 L MCV (80.0 - 94.0 FL) 92.4 MCH (27.0 - 31.0 PG) 30.2 MCHC (33.0 - 37.0 G/DL) 32.7 L RDW (11.5 - 14.5 %) 13.6 Plt Count (130 - 400 /CUMM) 415 H MPV (7.4 - 10.4 FL) 8.2 Gran % (42.2 - 75.2 %) 82.2 H Lymphocytes % (20.5 - 51.1 %) 11.9 L Monocytes % (1.7 - 9.3 %) 4.5 Eosinophils % (0 - 5 %) 0.6 Basophils % (0.0 - 2.0 %) 0.8 Absolute Granulocytes (1.4 - 6.5 /CUMM) 8.6 H Absolute Lymphocytes (1.2 - 3.4 /CUMM) 1.2 Absolute Monocytes (0.10 - 0.60 /CUMM) 0.5 Absolute Eosinophils (0.0 - 0.7 /CUMM) 0.1 Absolute Basophils (0.0 - 0.2 /CUMM) 0.1 Immunology Complement C3 Pending Complement C4 Pending Toxicology Random Vancomycin (ug/ml) 14.3 17.6 Assessment/Plan Assessment/Plan 71-year-old male with diabetes, respiratory failure and dry gangrene of the right foot. Recommend podiatry evaluation Vikas Would obtain arterial ultrasound of the right leg All interventions can be deferred until patient is medically stable as per medical care and pulmonology/critical care medicine There is in no acute need for intervention as the patient's wounds are dry- please placed Betadine on the wounds Based on ultrasound may need repeat intervention prior to any podiatric surgery Consult Acknowledgment - Thank you for your consult request.
--- NOTE | 2017-04-06 14:25 | ULTRASOUND REPORT ---
EXAMINATION: US RETROPERITONEAL COMPLETE (RENAL) CLINICAL INFORMATION: Increasing creatinine. Acute kidney insufficiency. Under evaluation. COMPARISON: CT scan of the abdomen and pelvis dated 04/03/2017. TECHNIQUE: Real-time imaging of the kidneys and bladder. FINDINGS: RIGHT KIDNEY: 11.3 x 4.7 x 5.2 cm (SAG x AP x TRV). The kidney is normal in size, contour, and echogenicity. Renal cortical thickness is normal. No calculi or focal parenchymal lesions. No hydronephrosis. Several echogenic reflectors are seen at the corticomedullary junctions of the right kidney, consistent with the vascular calcification seen previously on CT. LEFT KIDNEY: 11.8 x 5.6 x 5.9 cm (SAG x AP x TRV). The kidney is normal in size, contour, and echogenicity. Renal cortical thickness is normal. No calculi or focal parenchymal lesions. No hydronephrosis. Vascular calcifications is seen at the corticomedullary junction of the left kidney, consistent with vascular calcification seen on CT scan. BLADDER: The bladder is suboptimally assessed due to underdistention. There may be diffuse bladder wall hypertrophy Bilateral ureteral jets are demonstrated. Prevoid bladder volume is 6 mL. Postvoid bladder volume is not assessed. OTHER: There is a small amount of free fluid in the right upper quadrant, not appreciated on CT scan. IMPRESSION: 1. Normal kidneys. 2. Vascular calcifications at the corticomedullary junctions of both kidneys. 3. Bladder decompressed and not adequately assessed. 4. Incidental small volume fluid in the right upper quadrant..
[2017-04-06 16:00] VITALS: BP 122/70
[2017-04-07] VITALS: BP 128/74
[2017-04-07 05:14] LABS: ABSOLUTE BASOPHIL COUNT 0.1 /CUMM (0.0-0.2); ABSOLUTE EOSINOPHIL COUNT 0.1 /CUMM (0.0-0.7); ABSOLUTE GRANULOCYTE CT 9.4 /CUMM (1.4-6.5); ABSOLUTE LYMPH COUNT 0.8 /CUMM (1.2-3.4); ABSOLUTE MONOCYTE COUNT 0.5 /CUMM (0.10-0.60); BASOPHIL % 0.6 % (0.0-2.0); EOSINOPHIL % 0.7 % (0-5); HEMATOCRIT 26.5 % (42-52); MEAN CORPUSCULAR HGB 30.6 PG (27.0-31.0); MEAN CORPUSCULAR VOLUME 92.8 FL (80.0-94.0); MEAN PLATELET VOLUME 8.4 FL (7.4-10.4); PLATELET COUNT 414 /CUMM (130-400); RBC DISTRIBUTION WIDTH 13.3 % (11.5-14.5); RED BLOOD CELL CT 2.85 /CUMM (4.70-6.10); WHITE BLOOD CELL COUNT 10.8 /CUMM (4.8-10.8)
[2017-04-07 05:43] LABS: GRANULOCYTE % 86.5 % (42.2-75.2)
--- NOTE | 2017-04-07 07:01 | RADIOLOGY REPORT ---
EXAMINATION: XR PORTABLE CHEST CLINICAL INFORMATION: Edema, shortness of breath COMPARISON: 04/05/2017 TECHNIQUE: Portable frontal view of the chest was obtained. FINDINGS: Right-sided pacemaker lead tips overlie the right atrium and right ventricle. Lung volumes are symmetric. In comparison to the prior examination there is significantly increased opacification of the right upper lobe. Right basilar aeration appears mildly improved, with some residual opacification and a small pleural effusion. There is persistent left basilar retrocardiac opacity and suspected small effusion, similar to prior. There is increased opacity in the left upper lobe compared to prior. No pneumothorax is seen. The cardiomediastinal silhouette is stable. No acute osseous findings are seen. IMPRESSION: Overall worsened upper lobe opacification bilaterally since 04/05/2017, right greater than left. Right basilar aeration has mildly improved from prior, while retrocardiac opacity appears similar. Small pleural effusions.
--- NOTE | 2017-04-07 07:31 | PN- Resident CRCU ---
Subjective HPI/CRCU Issues: He seems improved compared to yesterday. He is more alert, and is responsive to verbal stimuli. Did not have any new complaints. No chest pain, palpitations, but continues to be short of breath. No fever, chills. 24 Hour Events: MAXIMUM TEMPERATURE 99.1 Heart rate in the range of 84-106 Paced rhythm Respiratory rate 16-32 Systolic blood pressure 98-142, diastolic blood pressure 61-71, Accu-Cheks 220, 265, 258 High flow nasal cannula 55 FiO2, pulse ox 90-96%. Ins and outs in the last 24 hours: Input 1813 mL, output 2850 mL. Total balance to date 2921 mL, output 4080 mL. Objective Vital Signs & I&O Last 8 Hrs of Vitals and I&O: Intake & Output 04/07 0800 Intake Total 415 Output Total 1950 Balance -1535 Intake, IV 415 Output, Urine 1950 Exam General Appearance: alert, awake Other Physical Findings: General Appearance: Cooperative, no acute distress Skin: multiple ecchymotic patches in left lower leg, pulses are palpable Neck: Supple, No JVD Cardiovascular: Normal S1, Normal S2 Lungs: Decreased air entry bilaterally, rhonchi bilateral lungs Abdomen: Soft, No Tenderness Neurological: Normal Speech Extremities: right lower extremeties infarct in first and 2nd toe Vascular: weak pulses Current Medications: Current Medications Sig/Coral Start time Last Medication Dose Route Stop Time Status Admin Acetaminophen 500 MG TID 04/03 1156 AC 04/07 PO 1524 Amlodipine Besylate 5 MG DAILY 04/03 1200 AC 04/07 PO 1000 Aspirin 81 MG DAILY 04/04 1000 AC 04/07 PO 1000 Atorvastatin Calcium 40 MG 1700 04/03 1700 AC 04/07 PO 1524 Ceftazidime 1,000 MG 0600,1800 04/06 0600 AC 04/07 IV 1806 Dextrose/Sodium 1,000 ML Q20H 04/06 1345 DC 04/07 Chloride IV 1210 Fluticasone 2 SPRAY DAILY 04/03 1155 AC 04/07 Propionate THOMAS 1000 Furosemide 40 MG ONCE ONE 04/07 1500 DC 04/07 IV 04/07 1501 1524 Furosemide 40 MG 0645 04/07 0645 DC 04/07 IV 04/07 0646 0642 Heparin Sodium 5,000 UNIT Q8 04/03 1400 AC 04/07 (Porcine) SC 2347 Insulin Aspart 0 TIDAC/HS 04/04 2100 AC 04/07 SC 1700 Insulin Detemir 10 UNITS DAILY 04/07 1000 AC 04/07 SC 1000 Insulin Detemir 6 UNITS DAILY 04/06 1000 DC 04/06 SC 0851 Metoprolol Succinate 25 MG DAILY 04/03 1714 AC 04/07 PO 1000 Morphine Sulfate 2 MG Q4P PRN 04/04 1845 AC 04/08 IV 0412 Pantoprazole Sodium 40 MG DAILY 04/06 1345 AC 04/07 IV 1000 Pregabalin 50 MG TID 04/03 1155 AC 04/07 PO 2357 Impression/Plan Impression/Problem List Impression: Mr Liu is a 71-year-old gentleman with a past medical history of type I diabetes on insulin pump (complicated by neuropathy, retinopathy and nephropathy ), complete heart block status post pacemaker, previous admission to [facility] 2 weeks ago for 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 No evidence of prodromal symptoms. At the time of admission, vitals-temperature 97.6, pulse rate 83, blood pressure 131/58, 93% on 4-6 L. Lab findings indicated to PBC 17.3, platelets 406, hemoglobin at 8.7, serum creatinine 1.8. Troponins peaked at 6.64. EKG was very unclear to delineate ST depressions, since he was paced. CT scan chest indicated groundglass opacities, but did not have any clear consolidation suggestive of pneumonia at that time. During the hospital stay on telemetry floor, he remained afebrile, but he was persistently tachycardic and required increased oxygen; which went up to approximately 7 L. He did not have any chest pain, palpitations or altered mentation. An ICU transfer was initiated, when he was persistently tachypneic and remained hypoxemic. Troponin was drawn prior to ICU transfer which was 2.02 , and EKG did not reveal any new ST changes(Discussed with Dr. Sandy). Assessment and plan - Etiology in his case was thought to be likely fluid overload or possible congestive heart failure and pneumonia. In regards to right upper lobe opacity, healthcare associated pneumonia could be in the differential and should be treated with antibiotics. Pertinent labs: WBC 16.1(04/03)-->10.4(04/06)--> 10.8 Hemoglobin 8.9(04/03)--> 8.2 (04/06)--> 8.7 Platelets 408(04/03)--> 415 (04/06)--> 414 Sodium 140, potassium 5.0, magnesium 2.6 BUN 47(04/03)--> 63 (04/06)--> 56 Serum creatinine 1.6(04/03)--> 2.0 (04/06)--> 1.5 Troponin 0.44 (04/03)-->2.02 ( 04/04) peaked at 6.64. No new EKG changes. Microbiology: Surveillance cultures positive for MRSA Urine culture, blood cultures negative for any growth of microorganisms Lower respiratory cultures could not be done. CXR 04/07- Overall worsened upper lobe opacification bilaterally since 04/05/2017 , right greater than left. Right basilar aeration has mildly improved from prior , while retrocardiac opacity appears similar. Small pleural effusions. Ultrasound venous Doppler right upper extremity-04/07- No evidence of venous thrombosis at right upper extremity. Echocardiogrm 04/07- Left ventricular cavity size at the upper limits of normal. Mild to moderate concentric left ventricular hypertrophy. The inferior and posterior calderon are akinetic. The septum and apex contracts fairly well. Estimated ejection fraction is 35-40%. Catheter/pacemaker wire in the right ventricular cavity. Catheter/pacemaker wire in the right atrial appendage. Mild left atrial dilatation. Moderate thickening/calcification of the mitral valve leaflets. Moderate mitral annular calcification. Mild mitral regurgitation. Focal thickening of the aortic valve cusps. No aortic stenosis. Right ventricular systolic pressure estimated to be elevated at 55- 60 mmHg. Moderate to severe pulmonary hypertension. Left pleural effusion. Dilated IVC. Pending labs: SPEP, C3-C4. Respiratory: Continues to require high amounts of oxygen, and would continue to diurese as the blood pressure and kidney function allows. Monitor for any respiratory decompensation. Infectious: CXR showed opacity on the right side w/ s/o pneumonia currently being tx w/ ceftaz and vanc. In regards to his MRSA OM of the right foot, which is complicated by gangrenous changes in the right foot would need the continuation of vancomycin pending vanc levels. Pending vascular and Podiatry evaluation to ascertain if the pt would benefit from TMA vs BKA. The date of surgery will be decided once the respiratory state is more optimized. If the pt would need TMA, might plan to place a PICC line in the am. Circulatory: There was an elevated troponin, which peaked at 6.64 which was thought be likely due to type 2 VA. No EKG changes s/o VA. He also seems to be volume overloaded, and would need active diuresis which monitoring the sr creatinine closely. Echocardiogram showed HFrEF and high RVSP around 60mm of Hg. Dr Avery, refinery superintendent advising. Metabolic- Continues to have PARRIS secondary to hypoperfusion, or embolism, which is imroving. Sr cr 2.0-->1.5 (04/07).Would check SPEP. Use diuretics, as the kidney function allows. Dr. Price is advising. In regards to his type 1 diabete, he was being given d5 1/2 NS because his po intake is not very reliable. However, would continue his inuslin on tidac scale for now. If the pt doesnt have any po intake, would cover him q4 scale. Housekeepin. Diet- heart healthy diet. 2. Lines- iv line. PICC line was pulled out by the pt. Plan to place the PICC line in the am. 3. Land catheter to be removed in the am. 4. Pressors- none. 5. Ventilator- none. BiPAP none. 6. Abx- Vanc + Ceftaz. Code Status - DNR/DNI Problem List: 1. Decreased urine output 2. PARRIS (acute kidney injury) 3. Hypertension Pain Ratin Tomorrow's Labs & Rationales: cbc icu bundle. Plan DVT/Prophylaxis: pharmacological
[2017-04-07 08:00] VITALS: BP 140/38
--- NOTE | 2017-04-07 08:49 | PN- CRCU ---
Subjective HPI/Critical Care Issues: Continues to be critically ill Was on BiPAP this morning Afebrile Heart rate 90 pain since Blood pressure is adequate Remained on high flow yesterday O2 sat was 96% Continues to be on D5 half-normal saline Urine output has been adequate and patient is negative SIGNIFICANT DATA creatinine is improved to 1.5 BUN is 56 glucoses tend to be high other blood work reviewed as noted LFTs were unremarkable his troponin was high on the 10th white count down to 10.8 hemoglobin 8.7 platelets 06/06/1985 percent granulocytes ABG reviewed patient seemed to have improved significantly with his oxygenation influenza swab has been negative. Objective Current Medications: Current Medications Sig/Coral Start time Last Medication Dose Route Stop Time Status Admin Acetaminophen 500 MG TID 04/03 1156 AC 04/06 PO 211 Amlodipine Besylate 5 MG DAILY 04/03 1200 AC 04/06 PO 0853 Aspirin 81 MG DAILY 04/04 1000 AC 04/06 PO 0850 Atorvastatin Calcium 40 MG 1700 04/03 1700 AC 04/06 PO 1538 Ceftazidime 1,000 MG 0600,1800 04/06 0600 AC 04/07 IV 0524 Dextrose/Sodium 1,000 ML Q20H 04/06 1345 AC 04/06 Chloride IV 1410 Dextrose/Water 1,000 ML Q20H 04/05 1645 DC 04/06 IV 1137 Fluticasone 2 SPRAY DAILY 04/03 1155 AC Propionate THOMAS Furosemide 40 MG 0645 04/07 0645 DC 04/07 IV 04/07 0646 0642 Furosemide 40 MG ONCE ONE 04/06 2345 DC 04/06 IV 04/06 2346 2343 Heparin Sodium 5,000 UNIT Q8 04/03 1400 AC 04/07 (Porcine) SC 0524 Insulin Aspart 0 TIDAC/HS 04/04 2100 AC 04/06 SC 2122 Insulin Detemir 10 UNITS DAILY 04/07 1000 AC SC Insulin Detemir 6 UNITS DAILY 04/06 1000 DC 04/06 SC 0851 Metoprolol Succinate 25 MG DAILY 04/03 1714 AC 04/06 PO 0850 Morphine Sulfate 2 MG Q4P PRN 04/04 1845 AC 04/06 IV 0912 Pantoprazole Sodium 40 MG DAILY 04/06 1345 AC 04/06 IV 1409 Pregabalin 50 MG TID 04/03 1155 AC 04/06 PO 211 Vancomycin HCl 1,000 MG ONCE ONE 04/06 1900 DC 04/06 Dextrose/Water 250 ML IV 04/06 Vital Signs & I&O Last 24 Hrs of Vitals and I&O: Vital Signs Date Time Temp Pulse Resp B/P B/P Pulse O2 O2 Flow FiO2 Mean Ox Delivery Rate 04/07 0640 105 93 04/07 0407 95 Nasal 55% Cannula 04/07 0400 94 Nasal 55% Cannula 04/07 0109 95 Nasal 55% Cannula 04/07 0000 97.8 80 18 128/74 94 Nasal 55% Cannula 04/07 0000 94 Nasal 55% Cannula 04/06 2000 92 Nasal 55% Cannula 04/06 1700 97 Nasal 65% Cannula 04/06 1600 98.5 92 24 122/70 95 Nasal 75% Cannula 04/06 1600 95 Nasal 75% Cannula 04/06 1200 95 Nasal 85% Cannula 04/06 0853 103 143/61 04/06 0850 105 143/61 Intake & Output 04/07 1600 04/07 0800 04/07 0000 Intake Total 415 810 Output Total 1950 300 Balance -1535 510 Intake, IV 415 570 Intake, Oral 240 Output, Urine 1950 300 Impression/Plan Impression/Plan Impression/Plan: He is more awake and alert in no acute distress on high flow oxygen Lungs rhonchi and scattered crackles on the right Heart regular rhythm with no murmur Abdomen is soft, nontender with positive bowel sounds Extremities necrotic right second and third toes; left foot petechial/ purpuric rash Land catheter is in place IMPRESSION This is a gentleman with previous history of diabetes type 1 with multiple complications including neuropathy, significant peripheral vascular disease, previous pacemaker far heart block, previous history of MRSA osteomyelitis with previous foot surgery in the left side with femoral angioplasty, worsening performance status, previous normal pulmonary function tests, multiple organ dysfunction, now has a following issues * Acute hypoxemic respiratory failure now requiring high flow oxygen related to combination of factors which include congestive heart failure both systolic and diastolic failure with bilateral probable aspiration pneumonitis now on broad- spectrum antibiotics. * Acute lung injury probably related to aspiration pneumonitis with * Significant peripheral vascular disease with gangrene and probable osteomyelitis of his left foot. Infectious disease, podiatry and I'll vascular surgery is following the patient * Type 1 diabetes with multiple organ dysfunction including diabetic nephropathy , neuropathy, peripheral vascular disease and retinopathy. * Worsening renal insufficiency since admission most likely related to combination of factors including his underlying diabetic kidney disease. As he recently did have an angiogram he may have at the right embolism * Reduced ejection fraction with EF of 45-50% with abnormal diastolic dysfunction which appears to be chronic * Severe peripheral vascular disease with dry gangrene of the left foot with probable osteomyelitis as well, patient appears to be not a great candidate for general anesthesia at this present moment Recommendation Can discontinue his IV fluids if the patient can eat today Continue antibiotics per ID Continue high flow oxygen, and transition him to nasal cannula later today. His O2 sat goal should be 91-92% please to not keep him on 100% oxygen saturation Keep his head of bed elevated Continue to follow his glucose closely Continue low-dose morphine Can give one dose of Lasix again today to keep patient negative by 1 L if he tolerates. Repeat chest x-ray tomorrow Patient appears to be critically ill total time spent 40 minutes
--- NOTE | 2017-04-07 09:11 | ULTRASOUND REPORT ---
EXAMINATION: US DUPLEX LOWER EXTREMITY ARTERY/GRAFT LIMITED, lateral CLINICAL INFORMATION: Bilateral lower extremity nonhealing ulcers and thickened toenails. History of hypertension, hypercholesterolemia, diabetes and vascular disease. COMPARISON: 03/18/2017 TECHNIQUE: Real-time ultrasound and Doppler techniques (integrating B-mode 2-D vascular images, Doppler spectral analysis and color flow Doppler imaging) were utilized to interrogate the lower extremities. FINDINGS: Right lower extremity: Common femoral artery: 183 cm/sec; triphasic waveform Superficial femoral artery proximal: 94.3 cm/sec; biphasic waveform Superficial femoral artery mid portion: 151 cm/sec; triphasic waveform Superficial femoral artery distal: 182 cm/sec; triphasic waveform Profunda artery: 165 cm/sec; triphasic waveform Popliteal artery: 72 cm/sec; monophasic waveform Posterior tibial artery: 48.7 cm/sec; monophasic waveform Anterior tibial artery: 59.7 cm/sec; monophasic waveform Dorsalis pedis artery was unable to be visualized due to bandaging. Left lower extremity: Common femoral artery: 174 cm/sec; biphasic waveform Superficial femoral artery proximal: 98.2 cm/sec; triphasic waveform Superficial femoral artery mid portion: 127 cm/sec; triphasic waveform Superficial femoral artery distal: 221 cm/sec; triphasic waveform Profunda artery: 120 cm/sec; biphasic waveform Popliteal artery: 65.5 cm/sec; monophasic waveform Posterior tibial artery: 31.4 cm/sec; monophasic waveform Anterior tibial artery: 50.3 cm/sec; monophasic waveform Dorsalis pedis artery: 23.6 cm/sec; monophasic waveform ADDITIONAL FINDINGS: None. IMPRESSION: Peripheral vascular disease is present indicated by monophasic waveforms. There are likely stenoses present in the mid to distal superficial femoral arteries bilaterally, similar to the prior study. Greater sensitivity and specificity can be obtained with pre-and post exercise PVRs with PIRMO calculations. Also consider dedicated CTA for further anatomical detail.
--- NOTE | 2017-04-07 09:42 | PN- Diabetes ---
Assessment/Plan Assessment: 70 y/o male, Hx of DM type 1 diagnosed when he was 14 years old. He was on an insulin pump with basal rate running at 0.9 units per hour in the past. His diabetes was complicated by neuropathy, retinopathy, nephropathy. Patient presented to the ED after sustaining an unwitnessed fall. He was admitted for positive troponin with peak troponin of 6.64, ongoing right foot infection and gangrene of 2nd toe and 3rd toe. He was transfered to ICU for SOB. He is now on BIPAP. Surgery was cancelled. His po intake has been poor and he has been confused. Currently he is on Levemir 6 units once a day, Novolog coverage before meals and Novolog coverage at bedtime. However, the coverage starts when his FSG is > 200. He is on D5W at 50 ml/hour. His FSGs were 90, 220, 265, 258. But am lab showed glucose level of 328. Plan: 1. increase Levemir to 10 units daily; 2. adjust Novolog coverage before meals; detail see the inpatient DM order; 3. continue the current Novolog coverage at bedtime; 4. monitor FSGs. will follow. Inpatient Diabetes Orders Before Each Meal: Bolus Insulin: Novolog < 80 mg/dl: no coverage 80-100 mg/dl: no coverage 101-120 mg/dl: no coverage 121-150 mg/dl: no coverage 151-200 mg/dl: 2 units 201-250 mg/dl: 3 units 251-300 mg/dl: 4 units 301-350 mg/dl: 5 units 351-400 mg/dl: 6 units > 400 mg/dl: 8 units Subjective Subjective: Patient is still confused. Objective Last 24 Hrs of Vital Signs/I&O Vital Signs Date Time Temp Pulse Resp B/P B/P Pulse O2 O2 Flow FiO2 Mean Ox Delivery Rate 04/07 0935 93 94 04/07 0640 105 93 04/07 0407 95 Nasal 55% Cannula 04/07 0400 94 Nasal 55% Cannula 04/07 0109 95 Nasal 55% Cannula 04/07 0000 97.8 80 18 128/74 94 Nasal 55% Cannula 04/07 0000 94 Nasal 55% Cannula 04/06 2000 92 Nasal 55% Cannula 04/06 1700 97 Nasal 65% Cannula 04/06 1600 98.5 92 24 122/70 95 Nasal 75% Cannula 04/06 1600 95 Nasal 75% Cannula 04/06 1200 95 Nasal 85% Cannula Intake & Output 04/07 1600 04/07 0800 04/07 0000 Intake Total 415 810 Output Total 1950 300 Balance -1535 510 Intake, IV 415 570 Intake, Oral 240 Output, Urine 1950 300 Findings Pertinent Lab/[place] Results: Laboratory Tests 04/07 04/07 0815 0425 Blood Gas pH (7.35 - 7.45 PH) 7.47 H pCO2 (35 - 45 TORR) 31 L pO2 (80 - 100 TORR) 210 H HCO3 (21 - 28 MEQ/L) 22 ABG O2 Sat (Measured) (>96.0 %) 99.0 P-50 (Temp Corrected) N Carboxyhemoglobin (1.5 - 5.0 %) 0.1 L O2 Concentration % 100% Temperature (97.0 - 100.0 FARH) 97.8 Respiration Rate (BPM) 26 O2 Delivery Method BIPAP Vent Mode ST Expiratory Pressure (CM H2O P) 6 Inspiratory Pressure (CM H2O P) 20 Chemistry Sodium Cancelled Potassium Cancelled Chloride Cancelled Carbon Dioxide Cancelled Anion Gap Cancelled BUN Cancelled Creatinine Cancelled Glucose Cancelled Calcium Cancelled Phosphorus Cancelled Magnesium Cancelled Total Bilirubin Cancelled AST Cancelled ALT Cancelled Albumin Cancelled Miscellaneous Phlebotomy Draw Site LEFT RADIAL 04/07 04/06 0425 1020 Chemistry Sodium (137 - 145 mmol/L) 141 Potassium (3.5 - 5.1 mmol/L) 4.6 Chloride (98 - 107 mmol/L) 99 Carbon Dioxide (22 - 30 mmol/L) 28 Anion Gap (5 - 16) 14 BUN (9 - 20 mg/dL) 56 H Creatinine (0.7 - 1.2 mg/dL) 1.5 H Estimated GFR (>60 ml/min) 46 L Glucose (65 - 99 mg/dL) 328 H Calcium (8.4 - 10.2 mg/dL) 8.2 L Phosphorus (2.5 - 4.5 mg/dL) 3.3 Magnesium (1.6 - 2.3 mg/dL) 2.5 H Total Bilirubin (0.2 - 1.3 mg/dL) 0.9 AST (17 - 59 U/L) 31 ALT (21 - 72 U/L) 38 Albumin (3.5 - 5.0 g/dL) 2.8 L Hematology CBC w Diff NO MAN DIFF REQ WBC (4.8 - 10.8 /CUMM) 10.8 RBC (4.70 - 6.10 /CUMM) 2.85 L Hgb (14.0 - 18.0 G/DL) 8.7 L Hct (42 - 52 %) 26.5 L MCV (80.0 - 94.0 FL) 92.8 MCH (27.0 - 31.0 PG) 30.6 MCHC (33.0 - 37.0 G/DL) 33.0 RDW (11.5 - 14.5 %) 13.3 Plt Count (130 - 400 /CUMM) 414 H MPV (7.4 - 10.4 FL) 8.4 Gran % (42.2 - 75.2 %) 86.5 H Lymphocytes % (20.5 - 51.1 %) 7.3 L Monocytes % (1.7 - 9.3 %) 4.9 Eosinophils % (0 - 5 %) 0.7 Basophils % (0.0 - 2.0 %) 0.6 Absolute Granulocytes (1.4 - 6.5 /CUMM) 9.4 H Absolute Lymphocytes (1.2 - 3.4 /CUMM) 0.8 L Absolute Monocytes (0.10 - 0.60 /CUMM) 0.5 Absolute Eosinophils (0.0 - 0.7 /CUMM) 0.1 Absolute Basophils (0.0 - 0.2 /CUMM) 0.1 Toxicology Random Vancomycin (ug/ml) 17.4 14.3
--- NOTE | 2017-04-07 09:52 | ECHOCARDIOGRAM REPORT ---
JIM WASSERMAN Age: 71 : 1945 Gender: M Exam Date: 04/06/2017 17:14 Exam Location: [facility] Ht (in): 68 Wt (lb): 180 BSA: 2.00 BP: 143 / 61 Ordering Physician: Eunice Crowder MD Referring Physician: Eunice Crowder MD Technologist: Tanvi Lopez [facility] Room Number: 104-1 Indications: MYOCARDIAL ISCHEMIA/NJ Rhythm: Paced Technical Quality: Good FINDINGS Left Ventricle Left ventricular cavity size at the upper limits of normal. Mild to moderate concentric left ventricular hypertrophy. The inferior and posterior calderon are akinetic. The septum and apex contracts fairly well. Estimated ejection fraction is 35-40%. Right Ventricle Normal right ventricular size and function. Catheter/pacemaker wire in the right ventricular cavity. Right Atrium Normal right atrial size. Catheter/pacemaker wire in the right atrial appendage. Left Atrium Mild left atrial dilatation. Mitral Valve Moderate thickening/calcification of the mitral valve leaflets. Moderate mitral annular calcification. Mild mitral regurgitation. Aortic Valve Focal thickening of the aortic valve cusps. No aortic stenosis. No aortic regurgitation. Tricuspid Valve Tricuspid valve is normal in structure and function. Mild tricuspid regurgitation. Right ventricular systolic pressure estimated to be elevated at 55-60 mmHg. Moderate to severe pulmonary hypertension. Pulmonic Valve Pulmonic valve not well visualized, grossly normal. No pulmonic regurgitation. Pericardium No pericardial effusion. Left pleural effusion. Great Vessels Normal size aortic root. dilated IVC. CONCLUSIONS Left ventricular cavity size at the upper limits of normal. Mild to moderate concentric left ventricular hypertrophy. The inferior and posterior calderon are akinetic. The septum and apex contracts fairly well. Estimated ejection fraction is 35-40%. Catheter/pacemaker wire in the right ventricular cavity. Catheter/pacemaker wire in the right atrial appendage. Mild left atrial dilatation. Moderate thickening/calcification of the mitral valve leaflets. Moderate mitral annular calcification. Mild mitral regurgitation. Focal thickening of the aortic valve cusps. No aortic stenosis. Right ventricular systolic pressure estimated to be elevated at 55- 60 mmHg. Moderate to severe pulmonary hypertension. Left pleural effusion. Dilated IVC. Lazaro Avery M.D. (Electronically Signed) Final Date: 07 April 2017 09:51 MEASUREMENTS (Male / Female) Normal Values 2D ECHO LV Diastolic Diameter PLAX 5.6 cm 4.2 - 5.9 / 3.9 - 5.3 cm LV Systolic Diameter PLAX 4.6 cm 2.1 - 4.0 cm LV Fractional Shortening PLAX 17.9 % 25 - 46 % LV Ejection Fraction 2D Teich 36.7 % IVS Diastolic Thickness 1.3 cm LVPW Diastolic Thickness 1.3 cm LV Relative Wall Thickness 0.5 RV Internal Dim ED PLAX 4.2 cm 1.9 - 3.8 cm LVOT Diameter 1.9 cm Aortic Root Diameter 2.9 cm LA Systolic Diameter LX 4.4 cm 3.0 - 4.0 / 2.7 - 3.8 cm LV Diastolic Length 4C 7.3 cm 6.9 - 10.3 cm LV Diastolic Area 4C 35.4 cm LV Diastolic Volume MOD 4C 141.0 cm LV Ejection Fraction MOD 4C 38.3 % LV Stroke Volume MOD 4C 54.0 cm LV Systolic Length 4C 6.3 cm LV Systolic Area 4C 25.8 cm LV Systolic Volume MOD 4C 87.0 cm LV Ejection Fraction MOD 2C 29.6 % LV Diastolic Volume 4C AL 146.7 cm 85 - 139 / 69 - 109 cm LV Systolic Volume 4C AL 89.4 cm LV Ejection Fraction 4C AL 39.1 % LV Stroke Volume 4C AL 57.3 cm LV Ejection Fraction 2C AL 32.0 % LA Volume 70.0 cm 18 - 58 / 22 - 52 cm Ascending Aorta Diameter 2.5 cm DOPPLER AV Peak Velocity 142.0 cm/s AV Peak Gradient 8.1 mmHg AV Mean Velocity 102.0 cm/s AV Mean Gradient 5.0 mmHg AV Velocity Time Integral 28.2 cm LVOT Peak Velocity 111.0 cm/s LVOT Peak Gradient 4.9 mmHg LVOT Mean Velocity 72.3 cm/s LVOT Mean Gradient 3.0 mmHg LVOT Velocity Time Integral 20.8 cm LVOT Stroke Volume 59.0 cm AV Area Cont Eq vti 2.1 cm AV Area Cont Eq pk 2.2 cm MV Peak Velocity 182.0 cm/s MV Peak Gradient 13.2 mmHg MV Mean Velocity 107.0 cm/s MV Mean Gradient 6.0 mmHg Mitral E Point Velocity 171.0 cm/s Mitral A Point Velocity 175.0 cm/s Mitral E to A Ratio 1.0 MV PHT Velocity 194.0 cm/s MV Deceleration [place] 674.0 cm/s MV Pressure Half Time 86.4 ms MV Area PHT 2.5 cm MV Deceleration Time 215.0 ms TR Peak Velocity 332.0 cm/s TR Peak Gradient 44.1 mmHg Right Atrial Pressure 10.0 mmHg Pulmonary Artery Systolic Pressu 54.1 mmHg Right Ventricular Systolic Press 54.1 mmHg PV Peak Velocity 92.0 cm/s PV Peak Gradient 3.4 mmHg PV Mean Velocity 69.9 cm/s PV Mean Gradient 2.0 mmHg PV Velocity Time Integral 20.5 cm LV E' Lateral Velocity 7.0 cm/s Mitral E to LV E' Lateral Ratio 24.4 LV E' Septal Velocity 3.1 cm/s Mitral E to LV E' Septal Ratio 54.8
--- NOTE | 2017-04-07 10:24 | PN- Nephrology ---
Assessment/Plan Assessment: 1. PARRIS: prob ATN in setting of pneumonia, IV Vanco, & AL; improving 2. CKD: mild-mod, stage 2-3; baseline Cr low 1s --> etiology presumed DM & HTN Suggestion: Will follow prn basis Subjective Subjective: Remains on hi flow O2 w less SOB No CP Nonoliguric Objective Vital Signs and I&Os Vital Signs Date Time Temp Pulse Resp B/P B/P Pulse O2 O2 Flow FiO2 Mean Ox Delivery Rate 04/07 0935 93 94 04/07 0640 105 93 04/07 0407 95 Nasal 55% Cannula 04/07 0400 94 Nasal 55% Cannula 04/07 0109 95 Nasal 55% Cannula 04/07 0000 97.8 80 18 128/74 94 Nasal 55% Cannula 04/07 0000 94 Nasal 55% Cannula 04/06 2000 92 Nasal 55% Cannula 04/06 1700 97 Nasal 65% Cannula 04/06 1600 98.5 92 24 122/70 95 Nasal 75% Cannula 04/06 1600 95 Nasal 75% Cannula 04/06 1200 95 Nasal 85% Cannula Intake & Output 04/07 1600 04/07 0400 04/06 1600 04/06 0400 04/05 1600 04/05 0400 Intake Total 227 490 0629 374 310 10 Output Total 1950 300 950 220 295 365 Balance -1535 510 52 154 15 -355 Intake, IV 415 570 822 374 250 Intake, Oral 240 180 60 10 Number 0 0 0 0 Bowel Movements Output, Urine 1950 300 950 220 295 365 Patient 180 lb Weight Physical Exam General Appearance: no apparent distress Head: atraumatic Ears, Nose, Throat: Hi flow O2 by NC Neck: normal inspection Respiratory: no respiratory distress, quiet respiration, crackles Cardiovascular: regular rate/rhythm, friction rub (none) Abdomen: soft, non-tender Extremities: gengrene R ft w/o change Neurologic/Psychiatric: awake, alert Skin: petechial rash L leg Current Medications: Current Medications Sig/Coral Start time Last Medication Dose Route Stop Time Status Admin Acetaminophen 500 MG TID 04/03 1156 AC 04/06 PO 2116 Amlodipine Besylate 5 MG DAILY 04/03 1200 AC 04/06 PO 0853 Aspirin 81 MG DAILY 04/04 1000 AC 04/06 PO 0850 Atorvastatin Calcium 40 MG 1700 04/03 1700 AC 04/06 PO 1538 Ceftazidime 1,000 MG 0600,1800 04/06 0600 AC 04/07 IV 0524 Dextrose/Sodium 1,000 ML Q20H 04/06 1345 AC 04/06 Chloride IV 1410 Dextrose/Water 1,000 ML Q20H 04/05 1645 DC 04/06 IV 1137 Fluticasone 2 SPRAY DAILY 04/03 1155 AC Propionate THOMAS Furosemide 40 MG 0645 04/07 0645 DC 04/07 IV 04/07 0646 0642 Furosemide 40 MG ONCE ONE 04/06 2345 DC 04/06 IV 04/06 2346 2343 Heparin Sodium 5,000 UNIT Q8 04/03 1400 AC 04/07 (Porcine) SC 0524 Insulin Aspart 0 TIDAC/HS 04/04 2100 AC 04/07 SC 0800 Insulin Detemir 10 UNITS DAILY 04/07 1000 AC SC Insulin Detemir 6 UNITS DAILY 04/06 1000 DC 04/06 SC 0851 Metoprolol Succinate 25 MG DAILY 04/03 1714 AC 04/06 PO 0850 Morphine Sulfate 2 MG Q4P PRN 04/04 1845 AC 04/06 IV 0912 Pantoprazole Sodium 40 MG DAILY 04/06 1345 AC 04/06 IV 1409 Pregabalin 50 MG TID 04/03 1155 AC 04/06 PO 2118 Vancomycin HCl 1,000 MG ONCE ONE 04/06 1900 DC 04/06 Dextrose/Water 250 ML IV 04/06 Results Pertinent Lab Results: Laboratory Tests 04/07 04/07 0815 0425 Blood Gas pH (7.35 - 7.45 PH) 7.47 H pCO2 (35 - 45 TORR) 31 L pO2 (80 - 100 TORR) 210 H HCO3 (21 - 28 MEQ/L) 22 ABG O2 Sat (Measured) (>96.0 %) 99.0 P-50 (Temp Corrected) N Carboxyhemoglobin (1.5 - 5.0 %) 0.1 L O2 Concentration % 100% Temperature (97.0 - 100.0 FARH) 97.8 Respiration Rate (BPM) 26 O2 Delivery Method BIPAP Vent Mode ST Expiratory Pressure (CM H2O P) 6 Inspiratory Pressure (CM H2O P) 20 Chemistry Sodium Cancelled Potassium Cancelled Chloride Cancelled Carbon Dioxide Cancelled Anion Gap Cancelled BUN Cancelled Creatinine Cancelled Glucose Cancelled Calcium Cancelled Phosphorus Cancelled Magnesium Cancelled Total Bilirubin Cancelled AST Cancelled ALT Cancelled Albumin Cancelled Miscellaneous Phlebotomy Draw Site LEFT RADIAL 04/07 04/06 04/06 2369 1020 0500 Chemistry Sodium (137 - 145 mmol/L) 141 Potassium (3.5 - 5.1 mmol/L) 4.6 Chloride (98 - 107 mmol/L) 99 Carbon Dioxide (22 - 30 mmol/L) 28 Anion Gap (5 - 16) 14 BUN (9 - 20 mg/dL) 56 H Creatinine (0.7 - 1.2 mg/dL) 1.5 H Estimated GFR (>60 ml/min) 46 L Glucose (65 - 99 mg/dL) 328 H Calcium (8.4 - 10.2 mg/dL) 8.2 L Phosphorus (2.5 - 4.5 mg/dL) 3.3 Magnesium (1.6 - 2.3 mg/dL) 2.5 H Total Bilirubin (0.2 - 1.3 mg/dL) 0.9 AST (17 - 59 U/L) 31 ALT (21 - 72 U/L) 38 Prot Electrophoresis Pending Total Protein (PEP) Pending Albumin (3.5 - 5.0 g/dL) 2.8 L Albumin % (PEP) Pending [id number] Pending Quytw-[id number] Pending Eqqx-3-Gouwsjhi Pending Egyf-1-Fvgqgkbu Pending Gamma Globulins Pending Abnorm Protein Band 1 Pending Abnorm Protein Band 2 Pending Abnorm Protein Band 3 Pending Hematology CBC w Diff NO MAN DIFF REQ WBC (4.8 - 10.8 /CUMM) 10.8 RBC (4.70 - 6.10 /CUMM) 2.85 L Hgb (14.0 - 18.0 G/DL) 8.7 L Hct (42 - 52 %) 26.5 L MCV (80.0 - 94.0 FL) 92.8 MCH (27.0 - 31.0 PG) 30.6 MCHC (33.0 - 37.0 G/DL) 33.0 RDW (11.5 - 14.5 %) 13.3 Plt Count (130 - 400 /CUMM) 414 H MPV (7.4 - 10.4 FL) 8.4 Gran % (42.2 - 75.2 %) 86.5 H Lymphocytes % (20.5 - 51.1 %) 7.3 L Monocytes % (1.7 - 9.3 %) 4.9 Eosinophils % (0 - 5 %) 0.7 Basophils % (0.0 - 2.0 %) 0.6 Absolute Granulocytes (1.4 - 6.5 /CUMM) 9.4 H Absolute Lymphocytes (1.2 - 3.4 /CUMM) 0.8 L Absolute Monocytes (0.10 - 0.60 /CUMM) 0.5 Absolute Eosinophils (0.0 - 0.7 /CUMM) 0.1 Absolute Basophils (0.0 - 0.2 /CUMM) 0.1 Immunology Complement C3 Pending Complement C4 Pending Toxicology Random Vancomycin (ug/ml) 17.4 14.3 04/06 04/05 2744 6232 Chemistry Sodium (137 - 145 mmol/L) 140 139 Potassium (3.5 - 5.1 mmol/L) 5.0 5.5 H Chloride (98 - 107 mmol/L) 100 100 Carbon Dioxide (22 - 30 mmol/L) 28 27 Anion Gap (5 - 16) 12 12 BUN (9 - 20 mg/dL) 63 H 50 H Creatinine (0.7 - 1.2 mg/dL) 2.0 H 1.8 H Estimated GFR (>60 ml/min) 33 L 38 L Glucose (65 - 99 mg/dL) 119 H 177 H Calcium (8.4 - 10.2 mg/dL) 8.3 L 8.4 Phosphorus (2.5 - 4.5 mg/dL) 4.1 4.2 Magnesium (1.6 - 2.3 mg/dL) 2.6 H 2.2 Total Bilirubin (0.2 - 1.3 mg/dL) 0.6 0.6 AST (17 - 59 U/L) 53 74 H ALT (21 - 72 U/L) 46 51 Albumin (3.5 - 5.0 g/dL) 3.0 L 2.9 L Hematology CBC w Diff NO MAN DIFF REQ NO MAN DIFF REQ WBC (4.8 - 10.8 /CUMM) 10.4 11.7 H RBC (4.70 - 6.10 /CUMM) 2.70 L 2.54 L Hgb (14.0 - 18.0 G/DL) 8.2 L 7.8 L Hct (42 - 52 %) 25.0 L 23.5 L MCV (80.0 - 94.0 FL) 92.4 92.6 MCH (27.0 - 31.0 PG) 30.2 30.7 MCHC (33.0 - 37.0 G/DL) 32.7 L 33.2 RDW (11.5 - 14.5 %) 13.6 13.5 Plt Count (130 - 400 /CUMM) 415 H 408 H MPV (7.4 - 10.4 FL) 8.2 8.6 Gran % (42.2 - 75.2 %) 82.2 H 87.7 H Lymphocytes % (20.5 - 51.1 %) 11.9 L 7.4 L Monocytes % (1.7 - 9.3 %) 4.5 4.7 Eosinophils % (0 - 5 %) 0.6 0 Basophils % (0.0 - 2.0 %) 0.8 0.2 Absolute Granulocytes (1.4 - 6.5 /CUMM) 8.6 H 10.3 H Absolute Lymphocytes (1.2 - 3.4 /CUMM) 1.2 0.9 L Absolute Monocytes (0.10 - 0.60 /CUMM) 0.5 0.5 Absolute Eosinophils (0.0 - 0.7 /CUMM) 0.1 0 Absolute Basophils (0.0 - 0.2 /CUMM) 0.1 0 Toxicology Random Vancomycin (ug/ml) 17.6 14.7 04/04 04/04 04/04 2332 1420 1400 Blood Gas pH (7.35 - 7.45 PH) 7.47 H pCO2 (35 - 45 TORR) 33 L pO2 (80 - 100 TORR) 54 L HCO3 (21 - 28 MEQ/L) 23 ABG O2 Sat (Measured) (>96.0 %) 87.0 L P-50 (Temp Corrected) N Carboxyhemoglobin (1.5 - 5.0 %) 0.1 L O2 Concentration % 5L Temperature (97.0 - 100.0 FARH) 97.4 O2 Delivery Method N/C Chemistry Sodium (137 - 145 mmol/L) 138 135 L Potassium (3.5 - 5.1 mmol/L) 4.6 5.4 H Chloride (98 - 107 mmol/L) 98 97 L Carbon Dioxide (22 - 30 mmol/L) 27 24 Anion Gap (5 - 16) 12 13 BUN (9 - 20 mg/dL) 47 H 45 H Creatinine (0.7 - 1.2 mg/dL) 1.6 H 1.4 H Estimated GFR (>60 ml/min) 43 L 50 L BUN/Creatinine Ratio (7 - 25 %) 29.4 H Glucose (65 - 99 mg/dL) 302 H Calcium (8.4 - 10.2 mg/dL) 8.5 Phosphorus (2.5 - 4.5 mg/dL) 4.0 Magnesium (1.6 - 2.3 mg/dL) 2.2 Total Bilirubin (0.2 - 1.3 mg/dL) 0.6 AST (17 - 59 U/L) 90 H ALT (21 - 72 U/L) 50 Troponin I (<0.11 ng/ml) 2.02 *H [id number]-[id number] Pept (<125 pg/mL) 12529 H Albumin (3.5 - 5.0 g/dL) 3.2 L Miscellaneous Phlebotomy Draw Site L BRACHIAL Toxicology Acetone Level (NEGATIVE) NEGATIVE Imaging/Other Studies: CXR: Overall worsened upper lobe opacification bilaterally since 04/05/2017, right greater than left. Right basilar aeration has mildly improved from prior, while retrocardiac opacity appears similar. Small pleural effusions. Renal US: RIGHT KIDNEY: 11.3 x 4.7 x 5.2 cm (SAG x AP x TRV). The kidney is normal in size, contour, and echogenicity. Renal cortical thickness is normal. No calculi or focal parenchymal lesions. No hydronephrosis. Several echogenic reflectors are seen at the corticomedullary junctions of the right kidney, consistent with the vascular calcification seen previously on CT. LEFT KIDNEY: 11.8 x 5.6 x 5.9 cm (SAG x AP x TRV). The kidney is normal in size, contour, and echogenicity. Renal cortical thickness is normal. No calculi or focal parenchymal lesions. No hydronephrosis. Vascular calcifications is seen at the corticomedullary junction of the left kidney, consistent with vascular calcification seen on CT scan.
--- NOTE | 2017-04-07 10:59 | PN- Cardiology ---
Subjective Subjective: The patient is alert awake and alert. He states his breathing is better but still not good. He remains in pacing rhythm. His echocardiogram showed ejection fraction 35-40% with moderate to severe pulmonary hypertension. He he has responded to diuretics. His chest x-ray is improved with regards to congestion but still shows pneumonia especially right upper lobe. BUN and creatinine have improved to 56 and 1.5. Objective Vital Signs and I&Os Vital Signs Date Time Temp Pulse Resp B/P B/P Pulse O2 O2 Flow FiO2 Mean Ox Delivery Rate 04/07 0935 93 94 04/07 08 100 BIPAP 100% 04/07 08 98.7 86 28 140/38 99 BIPAP 100% 04/07 0640 105 93 04/07 0407 95 Nasal 55% Cannula 04/07 0400 94 Nasal 55% Cannula 04/07 0109 95 Nasal 55% Cannula 04/07 0000 97.8 80 18 128/74 94 Nasal 55% Cannula 04/07 0000 94 Nasal 55% Cannula 04/06 2000 92 Nasal 55% Cannula 04/06 1700 97 Nasal 65% Cannula 04/06 1600 98.5 92 24 122/70 95 Nasal 75% Cannula 04/06 1600 95 Nasal 75% Cannula 04/06 1200 95 Nasal 85% Cannula Intake & Output 04/07 1600 04/07 0800 04/07 0000 04/06 1600 04/06 0800 04/06 0000 Intake Total 415 810 588 414 374 Output Total 1950 300 600 350 220 Balance -1535 510 -12 64 154 Intake, IV 415 570 408 414 374 Intake, Oral 240 180 Number 0 0 0 Bowel Movements Output, Urine 1950 300 600 350 220 Patient 180 lb Weight Physical Exam: HEENT exam is unremarkable Chest scattered rhonchi especially right side Heart regular rhythm, systolic murmur at base Extremities right foot wrapped at this time Current Medications: Current Medications Sig/Coral Start time Last Medication Dose Route Stop Time Status Admin Acetaminophen 500 MG TID 04/03 1156 AC 04/06 PO 2117 Amlodipine Besylate 5 MG DAILY 04/03 1200 AC 04/06 PO 0853 Aspirin 81 MG DAILY 04/04 1000 AC 04/06 PO 0850 Atorvastatin Calcium 40 MG 1700 04/03 1700 AC 04/06 PO 1538 Ceftazidime 1,000 MG 0600,1800 04/06 0600 AC 04/07 IV 0524 Dextrose/Sodium 1,000 ML Q20H 04/06 1345 AC 04/06 Chloride IV 1410 Dextrose/Water 1,000 ML Q20H 04/05 1645 DC 04/06 IV 1137 Fluticasone 2 SPRAY DAILY 04/03 1155 AC Propionate THOMAS Furosemide 40 MG 0645 04/07 0645 DC 04/07 IV 04/07 0646 0642 Furosemide 40 MG ONCE ONE 04/06 2345 DC 04/06 IV 04/06 2346 2343 Heparin Sodium 5,000 UNIT Q8 04/03 1400 AC 04/07 (Porcine) SC 0524 Insulin Aspart 0 TIDAC/HS 04/04 2100 AC 04/07 SC 0800 Insulin Detemir 10 UNITS DAILY 04/07 1000 AC SC Insulin Detemir 6 UNITS DAILY 04/06 1000 DC 04/06 SC 0851 Metoprolol Succinate 25 MG DAILY 04/03 1714 AC 04/06 PO 0850 Morphine Sulfate 2 MG Q4P PRN 04/04 1845 AC 04/06 IV 0912 Pantoprazole Sodium 40 MG DAILY 04/06 1345 AC 04/06 IV 1409 Pregabalin 50 MG TID 04/03 1155 AC 04/06 PO 2118 Vancomycin HCl 1,000 MG ONCE ONE 04/06 1900 DC 04/06 Dextrose/Water 250 ML IV 04/060 Results Last 48 Hrs of Labs/Mics: Laboratory Tests 04/07/17 0815: pH 7.47 H, pCO2 31 L, pO2 210 H, HCO3 22, ABG O2 Sat (Measured) 99.0, P-50 ( Temp Corrected) N, Carboxyhemoglobin 0.1 L, O2 Concentration % 100%, Temperature 97.8, Respiration Rate 26, O2 Delivery Method BIPAP, Vent Mode ST, Expiratory Pressure 6, Inspiratory Pressure 20, Phlebotomy Draw Site LEFT RADIAL 04/07/17 0425: Sodium Cancelled, Potassium Cancelled, Chloride Cancelled, Carbon Dioxide Cancelled, Anion Gap Cancelled, BUN Cancelled, Creatinine Cancelled, Glucose Cancelled, Calcium Cancelled, Phosphorus Cancelled, Magnesium Cancelled, Total Bilirubin Cancelled, AST Cancelled, ALT Cancelled, Albumin Cancelled 04/07/17 0425: Anion Gap 14, Estimated GFR 46 L, Glucose 328 H, Calcium 8.2 L, Phosphorus 3.3, Magnesium 2.5 H, Total Bilirubin 0.9, AST 31, ALT 38, Albumin 2.8 L, CBC w Diff NO MAN DIFF REQ, RBC 2.85 L, MCV 92.8, MCH 30.6, MCHC 33.0, RDW 13.3, MPV 8.4, Gran % 86.5 H, Lymphocytes % 7.3 L, Monocytes % 4.9, Eosinophils % 0.7, Basophils % 0.6, Absolute Granulocytes 9.4 H, Absolute Lymphocytes 0.8 L, Absolute Monocytes 0.5, Absolute Eosinophils 0.1, Absolute Basophils 0.1, Random Vancomycin 17.4 04/06/17 1020: Random Vancomycin 14.3 04/06/17 0500: Prot Electrophoresis Pending, Total Protein (PEP) Pending, Albumin % (PEP) Pending, Dbrqb-0-Loevumwlq Pending, Iztnh-3-Vqtkvllpa Pending, Uesa-8-Koyzimmy Pending, Iehx-1-Cftudcki Pending, Gamma Globulins Pending, Abnorm Protein Band 1 Pending, Abnorm Protein Band 2 Pending, Abnorm Protein Band 3 Pending, Complement C3 Pending, Complement C4 Pending 04/06/17 0424: Anion Gap 12, Estimated GFR 33 L, Glucose 119 H, Calcium 8.3 L, Phosphorus 4.1, Magnesium 2.6 H, Total Bilirubin 0.6, AST 53, ALT 46, Albumin 3.0 L, CBC w Diff NO MAN DIFF REQ, RBC 2.70 L, MCV 92.4, MCH 30.2, MCHC 32.7 L, RDW 13.6, MPV 8.2, Gran % 82.2 H, Lymphocytes % 11.9 L, Monocytes % 4.5, Eosinophils % 0.6, Basophils % 0.8, Absolute Granulocytes 8.6 H, Absolute Lymphocytes 1.2, Absolute Monocytes 0.5, Absolute Eosinophils 0.1, Absolute Basophils 0.1, Random Vancomycin 17.6 Microbiology 04/06 1120 NASOPHARYN: Influenza Virus A & B Rapid Smear - COMP 04/05 1425 NASOPHARYN: Influenza Virus A & B Rapid Smear - COMP Recent Imaging Studies: CONCLUSIONS Left ventricular cavity size at the upper limits of normal. Mild to moderate concentric left ventricular hypertrophy. The inferior and posterior calderon are akinetic. The septum and apex contracts fairly well. Estimated ejection fraction is 35-40%. Catheter/pacemaker wire in the right ventricular cavity. Catheter/pacemaker wire in the right atrial appendage. Mild left atrial dilatation. Moderate thickening/calcification of the mitral valve leaflets. Moderate mitral annular calcification. Mild mitral regurgitation. Focal thickening of the aortic valve cusps. No aortic stenosis. Right ventricular systolic pressure estimated to be elevated at 55- 60 mmHg. Moderate to severe pulmonary hypertension. Left pleural effusion. Dilated IVC. Lazaro Avery M.D. (Electronically Signed) Final Date: 07 April 2017 09:51 Assessment/Plan Assessment/Plan The patient has multiple problems. He has acute kidney injury, elevated troponin, congestive heart failure, hypoxia, ischemic right foot. I recommend continued diuresis and treatment of his pneumonia. He has high risk for surgery and anesthesia but I feel we have very little choice but to address his ischemic foot in an aggressive manner. There is question of level of amputation that will take place and this will be discussed with podiatry and vascular surgery. Continue telemetry? Yes
--- NOTE | 2017-04-07 11:32 | PN- Infect Dx ---
Subjective Subjective: Afebrile without complaints. Objective Last 24 Hrs of Vital Signs/I&O Vital Signs Date Time Temp Pulse Resp B/P B/P Pulse O2 O2 Flow FiO2 Mean Ox Delivery Rate 04/07 0935 93 94 04/07 0800 100 BIPAP 100% 04/07 0800 98.7 86 28 140/38 99 BIPAP 100% 04/07 0640 105 93 04/07 0407 95 Nasal 55% Cannula 04/07 0400 94 Nasal 55% Cannula 04/07 0109 95 Nasal 55% Cannula 04/07 0000 97.8 80 18 128/74 94 Nasal 55% Cannula 04/07 0000 94 Nasal 55% Cannula 04/06 2000 92 Nasal 55% Cannula 04/06 1700 97 Nasal 65% Cannula 04/06 1600 98.5 92 24 122/70 95 Nasal 75% Cannula 04/06 1600 95 Nasal 75% Cannula 04/06 1200 95 Nasal 85% Cannula Intake & Output 04/07 1600 04/07 0800 04/07 0000 Intake Total 415 810 Output Total 1950 300 Balance -1535 510 Intake, IV 415 570 Intake, Oral 240 Output, Urine 1950 300 Physical Exam Other Physical Findings: He appears comfortable on high flow oxygen in no acute distress Lungs bilateral rhonchi Heart regular rhythm with no murmur Abdomen is soft, nontender with positive bowel sounds Extremities necrotic right second and third toes Land catheter remains in place Results Last 24 Hours of Lab Results: Laboratory Tests 04/07 04/07 0815 0425 Blood Gas pH (7.35 - 7.45 PH) 7.47 H pCO2 (35 - 45 TORR) 31 L pO2 (80 - 100 TORR) 210 H HCO3 (21 - 28 MEQ/L) 22 ABG O2 Sat (Measured) (>96.0 %) 99.0 P-50 (Temp Corrected) N Carboxyhemoglobin (1.5 - 5.0 %) 0.1 L O2 Concentration % 100% Temperature (97.0 - 100.0 FARH) 97.8 Respiration Rate (BPM) 26 O2 Delivery Method BIPAP Vent Mode ST Expiratory Pressure (CM H2O P) 6 Inspiratory Pressure (CM H2O P) 20 Chemistry Sodium Cancelled Potassium Cancelled Chloride Cancelled Carbon Dioxide Cancelled Anion Gap Cancelled BUN Cancelled Creatinine Cancelled Glucose Cancelled Calcium Cancelled Phosphorus Cancelled Magnesium Cancelled Total Bilirubin Cancelled AST Cancelled ALT Cancelled Albumin Cancelled Miscellaneous Phlebotomy Draw Site LEFT RADIAL 04/07 3351 Chemistry Sodium (137 - 145 mmol/L) 141 Potassium (3.5 - 5.1 mmol/L) 4.6 Chloride (98 - 107 mmol/L) 99 Carbon Dioxide (22 - 30 mmol/L) 28 Anion Gap (5 - 16) 14 BUN (9 - 20 mg/dL) 56 H Creatinine (0.7 - 1.2 mg/dL) 1.5 H Estimated GFR (>60 ml/min) 46 L Glucose (65 - 99 mg/dL) 328 H Calcium (8.4 - 10.2 mg/dL) 8.2 L Phosphorus (2.5 - 4.5 mg/dL) 3.3 Magnesium (1.6 - 2.3 mg/dL) 2.5 H Total Bilirubin (0.2 - 1.3 mg/dL) 0.9 AST (17 - 59 U/L) 31 ALT (21 - 72 U/L) 38 Albumin (3.5 - 5.0 g/dL) 2.8 L Hematology CBC w Diff NO MAN DIFF REQ WBC (4.8 - 10.8 /CUMM) 10.8 RBC (4.70 - 6.10 /CUMM) 2.85 L Hgb (14.0 - 18.0 G/DL) 8.7 L Hct (42 - 52 %) 26.5 L MCV (80.0 - 94.0 FL) 92.8 MCH (27.0 - 31.0 PG) 30.6 MCHC (33.0 - 37.0 G/DL) 33.0 RDW (11.5 - 14.5 %) 13.3 Plt Count (130 - 400 /CUMM) 414 H MPV (7.4 - 10.4 FL) 8.4 Gran % (42.2 - 75.2 %) 86.5 H Lymphocytes % (20.5 - 51.1 %) 7.3 L Monocytes % (1.7 - 9.3 %) 4.9 Eosinophils % (0 - 5 %) 0.7 Basophils % (0.0 - 2.0 %) 0.6 Absolute Granulocytes (1.4 - 6.5 /CUMM) 9.4 H Absolute Lymphocytes (1.2 - 3.4 /CUMM) 0.8 L Absolute Monocytes (0.10 - 0.60 /CUMM) 0.5 Absolute Eosinophils (0.0 - 0.7 /CUMM) 0.1 Absolute Basophils (0.0 - 0.2 /CUMM) 0.1 Toxicology Random Vancomycin (ug/ml) 17.4 Last 24 Hours of [place] Results: Rapid flu swab April 06 negative Recent Imaging Studies: Arterial Dopplers both lower extremities April 06 reveals peripheral vascular disease, with likely stenoses in the mid to distal superficial femoral arteries bilaterally Renal ultrasound April 06 normal kidneys Chest x-ray April 07 reveals a significantly increased opacification of the right upper lobe and an increased opacity in the left upper lobe Echocardiogram April 05 reveals an ejection fraction of 35-40% with moderate to severe pulmonary hypertension Assessment/Plan Impression: Stable, with temperatures and white blood cell count remaining normal, on Ceftazidime Day 3 of treatment for possible aspiration pneumonia and Vancomycin for residual osteomyelitis of the right foot now 2 weeks status post revisional partial first ray resection. He remains on high flow oxygen for increased respiratory distress, presumably secondary to an aspiration pneumonia, with increased densities on his chest x-ray. He has progression of gangrene to involve the second and third toes of the right foot and will need either a transmetatarsal amputation or, possibly, a BKA. The extent of surgery will determine the appropriate duration of antibiotics postoperatively. His renal insufficiency may be multifactorial and is improving. Suggestion: 1. Vascular surgery and Podiatry follow-up regarding BKA versus transmetatarsal amputation of the right foot 2. Would replace PICC if he undergoes a transmetatarsal amputation 3. Remove Land catheter once fluid status and renal function normalize 4. Redose with Vancomycin 1 g IV 1 on April 08 5. Continue Ceftazidime
--- NOTE | 2017-04-07 12:01 | ULTRASOUND REPORT ---
EXAMINATION: US TRIPLEX UPPER EXTREMITY, RIGHT CLINICAL INFORMATION: Right arm swelling. Status post removal of right-sided PICC line. COMPARISON: None TECHNIQUE: Color-flow triplex imaging with spectral analysis and compression Doppler were performed on the upper extremity. FINDINGS: The right internal jugular, subclavian, axillary, cephalic, brachial, and basilic veins are widely patent. IMPRESSION: No evidence of venous thrombosis at right upper extremity.
--- NOTE | 2017-04-07 15:46 | PN- Vascular Surgery ---
Surgical Brief Attending Note Brief Attending Note: Patient is critically ill. Had a discussion with the family at bedside. I also spoke with Dr. Moreno. Dr. Moreno thinks that TMA may heal. This will obviously have an advantage of limb salvage. The other option would be a major amputation. I discussed the options and shared my thought process with the family. We will also see how the foot demarcates. Once the patient is more stable for the operating room, we will have another discussion with the family and plan accordingly.
[2017-04-07 16:00] VITALS: BP 122/62
--- NOTE | 2017-04-07 20:24 | Transfer of Care Summary ---
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 No evidence of prodromal symptoms. He was admitted to general medicine floor, and was eventually transferred to critical care medicine since he had respiratory decompensation. At the time of admission, vitals-temperature 97.6, pulse rate 83, blood pressure 131/58, 93% on 4-6 L. Lab findings indicated to PBC 17.3, platelets 406, hemoglobin at 8.7, serum creatinine 1.8. Troponins peaked at 6.64. EKG was very unclear to delineate ST depressions, since he was paced. CT scan chest indicated groundglass opacities, but did not have any clear consolidation suggestive of pneumonia at that time. During the hospital stay on telemetry floor, he remained afebrile, but he was persistently tachycardic and required increased oxygen; which went up to approximately 7 L. He did not have any chest pain, palpitations or altered mentation. An ICU transfer was initiated, when he was persistently tachypneic and remained hypoxemic. Troponin was drawn prior to ICU transfer which was 2.02 , and EKG did not reveal any new ST changes(Discussed with Dr. Sandy). Assessment and plan - Etiology in his case was thought to be likely fluid overload or possible congestive heart failure, pulmonary embolism secondary to prolonged immobility, pneumonia. Received 2 L of D5 half-normal saline since admission, and has not being diuresed so far. PE was in the differential, however lower extremity DVTs could not be done due to unavailability; we'll try to obtain a VQ scan on Thursday or CTA if symptoms persist, and kidney function improves. In regards to right upper lobe opacity, healthcare associated pneumonia could be in the differential. Pertinent labs: WBC 16.1(04/03)-->10.4(04/06)--> 10.8 Hemoglobin 8.9(04/03)--> 8.2 (2/)--> 8.7 Platelets 408(2)--> 415 (04/06)--> 414 Sodium 140, potassium 5.0, magnesium 2.6 BUN 47(04/03)--> 63 (04/06)--> 56 Serum creatinine 1.6(2/)--> 2.0 (04/06)--> 1.5 Troponin 0.44 (04/03)-->2.02 ( 04/04) peaked at 6.64. No new EKG changes. Microbiology: Surveillance cultures positive for MRSA Urine culture, blood cultures negative for any growth of microorganisms Lower respiratory cultures could not be done. Pending labs: SPEP, C3-C4. Respiratory: He required higher concentration of oxygen, and etiology in this case at the time of transfer was unclear. Vascular congestion and pneumonia were in the differential. He was aggressively diuresed, and was started on ceftazidime. He was already being treated with vancomycin, for MRSA osteomyelitis. Infectious: Continued to have high white count, initially, which trended down. He was continued on vancomycin and ceftazidime. Vancomycin levels were dosed based on random Vanco levels in the a.m, since he developed acute on chronic renal insufficiency. In regards to his MRSA OM of the right foot, which is complicated by gangrenous changes in the right foot, needed evaluation by vascular surgeon, if he would need BKA. The options-TMA versus BKA were presented to the family, and a conversation needed to be done based upon the decision of the family and the surgeons. The surgery would be undertaken after the respiratory status is more optimized. Cardiac clearance to be obtained. Circulatory: There was an elevated troponin, which peaked at 6.64 which was thought be likely due to type 2 NH. Since, he has biventricular pacer for the tx of complete heart block the EKG changes werent very apparent to suggest NSTEMI. He also seems to be volume overloaded, and would need needed active diuresis which monitoring the sr creatinine closely. Echocardiogram revealed decreased ejection fraction. Dr. Avery was advising. Metabolic- Continued to have PARRIS secondary to hypoperfusion, or embolism. In regards to his type 1 diabetes, he was started on Levemir and NovoLog sliding scale. Dr. covarrubias advising. Blood sugars have been adequately controlled. Housekeepin. Diet- heart healthy diet. 2. Lines- iv line. PICC line was pulled out by the pt. Plan to place the PICC line at somepoint, and nephrology was consulted. 3. Land catheter. 4. Pressors- none. 5. Ventilator- none. BiPAP none. 6. Abx- Vanc + Ceftaz. Code Status - DNR/DNI Assessment/Plan: As above
[2017-04-08] VITALS: BP 124/48
[2017-04-08 05:12] LABS: ABSOLUTE BASOPHIL COUNT 0 /CUMM (0.0-0.2); ABSOLUTE EOSINOPHIL COUNT 0.1 /CUMM (0.0-0.7); ABSOLUTE GRANULOCYTE CT 8.5 /CUMM (1.4-6.5); ABSOLUTE LYMPH COUNT 1.1 /CUMM (1.2-3.4); ABSOLUTE MONOCYTE COUNT 0.3 /CUMM (0.10-0.60); BASOPHIL % 0.2 % (0.0-2.0); EOSINOPHIL % 0.7 % (0-5); HEMATOCRIT 23.5 % (42-52); MEAN CORPUSCULAR HGB 30.2 PG (27.0-31.0); MEAN CORPUSCULAR VOLUME 91.5 FL (80.0-94.0); MEAN PLATELET VOLUME 8.9 FL (7.4-10.4); PLATELET COUNT 395 /CUMM (130-400); RBC DISTRIBUTION WIDTH 13.3 % (11.5-14.5); RED BLOOD CELL CT 2.57 /CUMM (4.70-6.10)
--- NOTE | 2017-04-08 07:42 | PN- Housestaff ---
Assessment/Plan Assessment: 71-year-old male with past medical history significant for hypertension, hyperlipidemia, diabetes on insulin pump, status post pacemaker placement with recent admission on March 18 requiring toe amputation, significant peripheral vascular disease requiring SFA atherectomy and diagnosis of MRSA osteomyelitis requiring PICC line placement for prolonged antibiotics discharged on 03/30/2017 who is admitted to the hospital for workup of unwitnessed fall, high white count with bandemia, acute kidney injury and elevated troponins. Vital signs -remained afebrile overnight maximum temperature was 99.8, pulse 84, respiratory rate 16, blood pressure 106/46, FiO2 60% on high flow, SPO2 91%. Intake/output 170/535. Still having hematuria. Assessment and plan - Advised to take blood Cultures if patient spikes fever. f/u Renal USG PVD; s/p MRSA OM; Right foot gangrene involving second and third toe - * Patient does not have wound VAC, as he was not transferred from rehab with VAC. Discussed with Dr. Beck he does not think he need it now. * He advised that patient will go for an amputation on Thursday. We will keep him n.p.o. after Thursday midnight. * Follow up vascular and Podiatry consult Type II UT multifactorial -history of biventricular pacemaker(2009) for complete heart block;RCA 100% on medical management - * Had Acute UT/ Demand Ischemia - Multifactorial * he had multiple ecchymotic patches on right lower leg - we need to r/o Infective endocarditis and infarct in kidney. * He is also having progressive deterioration in [place] fucntion - May be sepsis or CHF; Cardioranal syndrome, he may need echo to know current EF and to rule it out. Acute kidney injury; mutifactorial - Sepsis; Cardiorenal; Renal infarct - * doesnt look like Vanco nephrotoxicity, as vancomycin cause nephrotoxicity only in high doses, his all blood level were with in normal limit. * His Urine out put was low - Discussed with Dr Person, for IV fluids, advised it may be sepsis, we need to know EF before we will start patient on IV fluids, advised to consult cardiology. Type 2 Diabetes. * Follow endocrinology recommendations * Levemir 8 twice a day * Sliding scale * Patient had an episode of hypoglycemia with blood sugar of 69, he gave 12.5 g of IV dextrose; that sugar was rechecked -85. Discussed with Dr. Steiner, advised to hold the night dose of Levemir. Start the patient on 5% dextrose 50 cc/h. Code Status - DNR/DNI DVT prophylaxis - Heparin.
--- NOTE | 2017-04-08 07:44 | PN- Resident CRCU ---
Subjective HPI/CRCU Issues: Seen and examined patient, seems very fidgety and confused this morning. Not oriented to person, place and time. On Bipap overnight for hypoxia. MAXIMUM TEMPERATURE 98.8 Heart rate in the range of 92-105 Paced rhythm Respiratory rate 18-32 Systolic blood pressure 120-133, diastolic blood pressure 53-60, Accu-Cheks 258, 453, 345, 368, 183 and 364. High flow nasal cannula 55 FiO2, pulse ox 90-96%. Objective Vital Signs & I&O Last 8 Hrs of Vitals and I&O: Intake & Output 04/08 1600 Intake Total 690 Output Total 225 Balance 465 Intake, IV 150 Intake, Oral 540 Number 0 Bowel Movements Output, Urine 225 Exam General Appearance: anxious, mild distress Respiratory: accessory muscle use Cardiovascular: regular rate/rhythm Gastrointestinal: normal bowel sounds, soft, non-tender Extremities: Necrotic right foot. stage IV Current Medications: Current Medications Sig/Coral Start time Last Medication Dose Route Stop Time Status Admin Acetaminophen 500 MG TID 04/03 1156 AC 04/08 PO 2151 Amlodipine Besylate 5 MG DAILY 04/03 1200 AC 04/08 PO 0925 Aspirin 81 MG DAILY 04/04 1000 AC 04/08 PO 0924 Atorvastatin Calcium 40 MG 1700 04/03 1700 AC 04/07 PO 1524 Ceftazidime 1,000 MG 0600,1800 04/06 0600 AC 04/09 IV 0534 Dextrose 25 GM ONCE ONE 04/09 0615 DC 04/09 IV 04/09 0616 0616 Dextrose/Water 1,000 ML .Q20H 04/09 0815 IV Fluticasone 2 SPRAY DAILY 04/03 1155 AC 04/08 Propionate THOMAS 0923 Furosemide 20 MG 1145 04/08 1145 DC 04/08 IV 04/08 1146 1138 Heparin Sodium 5,000 UNIT Q8 04/03 1400 AC 04/09 (Porcine) SC 0534 Insulin Aspart 0 Q4 04/08 1000 AC 04/08 SC 1403 Insulin Detemir 6 UNITS BID 04/09 1000 SC Insulin Detemir 7 UNITS BID 04/08 1000 DC 04/08 SC 2153 Lorazepam 0.5 MG ONCE ONE 04/08 1145 DC 04/08 IV 04/08 1146 1142 Metoprolol Succinate 25 MG DAILY 04/03 1714 AC 04/08 PO 0924 Morphine Sulfate 2 MG Q4P PRN 04/04 1845 AC 04/08 IV 0822 Pantoprazole Sodium 40 MG DAILY 04/06 1345 AC 04/08 IV 0925 Pregabalin 50 MG TID 04/03 1155 AC 04/08 PO 2151 Vancomycin HCl 1,000 MG ONCE ONE 04/08 1130 DC 04/08 Dextrose/Water 250 ML IV 04/08 1229 1236 Impression/Plan Impression/Problem List Impression: 71-year-old gentleman with a past medical history of type I diabetes on insulin pump (complicated by neuropathy, retinopathy and nephropathy), complete heart block status post pacemaker, PVD previous admission to [facility] 2 weeks prior to admission for 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 Placed on Bipap for work of breathing and was one time of ativan. Infectious: CXR consistent with multifocal pneumonia w/ ceftaz and vanc dosed per ID recomendation. random vanco level 04/08/17= 10.6 MRSA OM of the right foot, which is complicated by gangrenous changes in the right foot. Vascular and Podiatry on board, decision for TMA vs BKA. The date of surgery will be decided once the respiratory state is more optimized. If the pt gets TMA, then would need PICC line. However given his unstable respiratory status unclear if he will tolerate surgery. Circulatory: Positive troponin peaked at 6.64 which was thought be likely due to type 2 PR. No EKG changes s/o PR. Component of volume overload, PRN diuresis while monitoring the sr creatinine closely. Echocardiogram showed HFrEF and high RVSP around 60mm of Hg. Dr Avery, roll changer on board Hematology- H/H dropped from 8.7/26.5-7.8/23.5, will repeat H&H later tonight Guaiac all stools Metabolic- PARRIS secondary to hypoperfusion and vancomycin . Sr cr 2.0-->1.6 (04/08). SPEP pending. Nephrology on board Endo on board for his type DM, FSGs were 258, 453, 345, 368, 183 and 364 Levemir increased to 7 units twice a day with Novolog coverage every 4 hours; will inform dr Steiner if FSG are above >250 Aliamentry: On CC1 diet, has poor PO intake Neurology: dementia at baseline also seems to have some degree of delirium as well (2/2 infection vs elevated FSGS vs ICU delirium) Skin: Unstageable pressure ulcer noted on right upper buttocks which was present on admission. Please see wound care note for descriptions of his other ulcers. DVT ppx DNR/DNI Problem List: 1. PARRIS (acute kidney injury) Pain Ratin Tomorrow's Labs & Rationales: ICU/cbc cross and type Plan DVT/Prophylaxis: pharmacological
[2017-04-08 08:00] VITALS: BP 120/60
--- NOTE | 2017-04-08 09:57 | PN- Infect Dx ---
Subjective Subjective: Afebrile without complaints Objective Last 24 Hrs of Vital Signs/I&O Vital Signs Date Time Temp Pulse Resp B/P B/P Pulse O2 O2 Flow FiO2 Mean Ox Delivery Rate 04/08 924 105 133/53 04/08 09 103 133/56 04/08 0829 87 98 04/08 0800 98.8 92 28 120/60 97 BIPAP 40% 04/08 0800 95 BIPAP 40% 04/08 0624 92 97 04/08 0400 98 BIPAP 40% 04/08 0306 90 96 04/08 0026 80 95 04/08 0021 87 99 04/08 0000 98.0 80 29 124/48 94 BIPAP 60% 04/08 0000 94 BIPAP 60% 04/07 2000 90 Nasal 5.0L Cannula 04/07 1600 92 Nasal 5.0L Cannula 04/07 1600 98.0 76 26 122/62 92 Nasal 5.0L Cannula 04/07 1206 93 Nasal 4.0L Cannula 04/07 1200 93 Nasal 4.0L Cannula Intake & Output 04/08 1600 04/08 0800 04/08 0000 Intake Total 323 629 Output Total 300 400 Balance 23 229 Intake, IV 323 479 Intake, Oral 0 150 Number 1 0 Bowel Movements Output, Urine 300 400 Physical Exam Other Physical Findings: He is awake and alert, confused, but in no acute distress Lungs bilateral rhonchi Heart regular rhythm with no murmur Extremities right foot dressing intact Land catheter remains in place Results Last 24 Hours of Lab Results: Laboratory Tests 04/08 0438 Chemistry Sodium (137 - 145 mmol/L) 142 Potassium (3.5 - 5.1 mmol/L) 4.5 Chloride (98 - 107 mmol/L) 102 Carbon Dioxide (22 - 30 mmol/L) 28 Anion Gap (5 - 16) 12 BUN (9 - 20 mg/dL) 63 H Creatinine (0.7 - 1.2 mg/dL) 1.6 H Estimated GFR (>60 ml/min) 43 L Glucose (65 - 99 mg/dL) 229 H Calcium (8.4 - 10.2 mg/dL) 8.2 L Phosphorus (2.5 - 4.5 mg/dL) 3.3 Magnesium (1.6 - 2.3 mg/dL) 2.4 H Total Bilirubin (0.2 - 1.3 mg/dL) 0.9 AST (17 - 59 U/L) 28 ALT (21 - 72 U/L) 39 Albumin (3.5 - 5.0 g/dL) 2.8 L Hematology CBC w Diff NO MAN DIFF REQ WBC (4.8 - 10.8 /CUMM) 10.0 RBC (4.70 - 6.10 /CUMM) 2.57 L Hgb (14.0 - 18.0 G/DL) 7.8 L Hct (42 - 52 %) 23.5 L MCV (80.0 - 94.0 FL) 91.5 MCH (27.0 - 31.0 PG) 30.2 MCHC (33.0 - 37.0 G/DL) 33.0 RDW (11.5 - 14.5 %) 13.3 Plt Count (130 - 400 /CUMM) 395 MPV (7.4 - 10.4 FL) 8.9 Gran % (42.2 - 75.2 %) 85.0 H Lymphocytes % (20.5 - 51.1 %) 11.2 L Monocytes % (1.7 - 9.3 %) 2.9 Eosinophils % (0 - 5 %) 0.7 Basophils % (0.0 - 2.0 %) 0.2 Absolute Granulocytes (1.4 - 6.5 /CUMM) 8.5 H Absolute Lymphocytes (1.2 - 3.4 /CUMM) 1.1 L Absolute Monocytes (0.10 - 0.60 /CUMM) 0.3 Absolute Eosinophils (0.0 - 0.7 /CUMM) 0.1 Absolute Basophils (0.0 - 0.2 /CUMM) 0 Toxicology Random Vancomycin (ug/ml) 12.4 Last 24 Hours of [place] Results: No new cultures Recent Imaging Studies: Doppler of the right upper extremity negative Assessment/Plan Impression: Stable, with improvement in his respiratory status (possibly secondary to diuresis) and with his temperatures and white blood cell count remaining normal, on Ceftazidime Day 4 of treatment for possible aspiration pneumonia and Vancomycin, Day 16 of treatment for residual osteomyelitis of the right foot now 15 days status post revisional partial first ray resection, with progression of gangrene to involve the second and third toes of the right foot. Vascular Surgery comments noted and the decision regarding transmetatarsal amputation versus BKA is pending. The extent of surgery will determine the duration of antibiotics postoperatively. Suggestion: 1. Await decision regarding BKA versus transmetatarsal amputation of the right foot 2. Would place a new PICC if he undergoes a transmetatarsal amputation 3. Remove Land catheter if okay with Renal and Cardiology 4. Redose with Vancomycin 1 g IV 1 today and recheck a random Vancomycin level in the a.m. 5. Continue Ceftazidime
--- NOTE | 2017-04-08 10:19 | PN- CRCU ---
Subjective HPI/Critical Care Issues: Seen and examined this morning Continues to be slightly confused but alert awake and oriented 3 Afebrile Was on BiPAP for a few hours as he had hypoxemia overnight Continues to be on D5 half-normal saline Urine output has been adequate SIGNIFICANT DATA Creatinine is 1.6 White count 10.0 hemoglobin stable at 7.8 last ABG reviewed Upper extremity ultrasound unremarkable Chest x-ray done from yesterday showed worsening pulmonary edema Objective Current Medications: Current Medications Sig/Coral Start time Last Medication Dose Route Stop Time Status Admin Acetaminophen 500 MG TID 04/03 1156 AC 04/08 PO 0923 Amlodipine Besylate 5 MG DAILY 04/03 1200 AC 04/08 PO 0925 Aspirin 81 MG DAILY 04/04 1000 AC 04/08 PO 0924 Atorvastatin Calcium 40 MG 1700 04/03 1700 AC 04/07 PO 1524 Ceftazidime 1,000 MG 0600,1800 04/06 0600 AC 04/08 IV 0659 Dextrose/Sodium 1,000 ML Q20H 04/06 1345 DC 04/07 Chloride IV 1210 Fluticasone 2 SPRAY DAILY 04/03 1155 AC 04/08 Propionate THOMAS 0923 Furosemide 40 MG ONCE ONE 04/07 1500 DC 04/07 IV 04/07 1501 1524 Heparin Sodium 5,000 UNIT Q8 04/03 1400 AC 04/08 (Porcine) SC 0659 Insulin Aspart 0 Q4 04/08 1000 AC 04/08 SC 1012 Insulin Aspart 0 TIDAC/HS 04/04 2100 DC 04/08 SC 0750 Insulin Detemir 7 UNITS BID 04/08 1000 AC 04/08 SC 0924 Insulin Detemir 10 UNITS DAILY 04/07 1000 DC 04/07 SC 1000 Metoprolol Succinate 25 MG DAILY 04/03 1714 AC 04/08 PO 0924 Morphine Sulfate 2 MG Q4P PRN 04/04 1845 AC 04/08 IV 0822 Pantoprazole Sodium 40 MG DAILY 04/06 1345 AC 04/08 IV 0925 Pregabalin 50 MG TID 04/03 1155 AC 04/08 PO 0925 Vital Signs & I&O Last 24 Hrs of Vitals and I&O: Vital Signs Date Time Temp Pulse Resp B/P B/P Pulse O2 O2 Flow FiO2 Mean Ox Delivery Rate 04/08 924 105 133/53 04/08 09 103 133/56 04/08 0829 87 98 04/08 0800 98.8 92 28 120/60 97 BIPAP 40% 04/08 0800 95 BIPAP 40% 04/08 0624 92 97 04/08 0400 98 BIPAP 40% 04/08 0306 90 96 04/08 0026 80 95 04/08 0021 87 99 04/08 0000 98.0 80 29 124/48 94 BIPAP 60% 04/08 0000 94 BIPAP 60% 04/07 2000 90 Nasal 5.0L Cannula 04/07 1600 92 Nasal 5.0L Cannula 04/07 1600 98.0 76 26 122/62 92 Nasal 5.0L Cannula 04/07 1206 93 Nasal 4.0L Cannula 04/07 1200 93 Nasal 4.0L Cannula Intake & Output 04/08 1600 04/08 0800 04/08 0000 Intake Total 323 629 Output Total 300 400 Balance 23 229 Intake, IV 323 479 Intake, Oral 0 150 Number 1 0 Bowel Movements Output, Urine 300 400 Impression/Plan Impression/Plan Impression/Plan: He is more awake and alert in no acute distress on high flow oxygen Lungs rhonchi and scattered crackles on the right Heart regular rhythm with no murmur Abdomen is soft, nontender with positive bowel sounds Extremities necrotic right second and third toes; left foot petechial/ purpuric rash Land catheter is in place IMPRESSION This is a gentleman with previous history of diabetes type 1 with multiple complications including neuropathy, significant peripheral vascular disease, previous pacemaker far heart block, previous history of MRSA osteomyelitis with previous foot surgery in the left side with femoral angioplasty, worsening performance status, previous normal pulmonary function tests, multiple organ dysfunction, now has a following issues * Slowly improving Acute hypoxemic respiratory failure now requiring high flow oxygen related to combination of factors which include congestive heart failure both systolic and diastolic failure with bilateral probable aspiration pneumonitis now on broad-spectrum antibiotics. * Acute lung injury probably related to aspiration pneumonitis * Significant peripheral vascular disease with gangrene and probable osteomyelitis of his left foot. Infectious disease, podiatry and vascular surgery is following the patient * Type 1 diabetes with multiple organ dysfunction including diabetic nephropathy , neuropathy, peripheral vascular disease and retinopathy. * Worsening renal insufficiency since admission most likely related to combination of factors including his underlying diabetic kidney disease. As he recently did have an angiogram he may have at the right embolism * Reduced ejection fraction with EF of 45-50% with abnormal diastolic dysfunction which appears to be chronic * Severe peripheral vascular disease with dry gangrene of the left foot with probable osteomyelitis as well, patient appears to be not a great candidate for general anesthesia at this present moment Recommendation RPt cxr Can discontinue his IV fluids if the patient can eat today Continue antibiotics per ID Cont bipap at hs prn if worse Cont gentle diuresis Keep his head of bed elevated Continue to follow his glucose closely Continue low-dose morphine Can give one dose of Lasix again today to keep patient negative by 1 L if he tolerates. As he is stablizing can go for surg if family and the surgeons feels its appropriate Patient appears to be critically ill total time spent 38 minutes
--- NOTE | 2017-04-08 10:25 | RADIOLOGY REPORT ---
EXAMINATION: CR PORTABLE CHEST CLINICAL INFORMATION: Shortness of breath, edema. Presumptive diagnosis of CHF and aspiration pneumonia. COMPARISON: Multiple prior chest x-rays, most recent of which is dated 04/07/2017. TECHNIQUE: Portable semierect view of the chest was obtained. FINDINGS: Evaluation is limited by multiple overlying leads and wires. Right atrial and right ventricular pacer wires are unchanged in position. The cardiomediastinal silhouette is mildly enlarged. There continues to be dense opacification of the right upper lobe with associated air bronchograms and volume loss, perhaps minimally improved when compared to the prior exam. There is also improved aeration in the patchy parenchymal opacity in the left perihilar and upper lung when compared to the prior exam. No significant change in bibasilar opacities is seen. Previously seen pleural effusions have likely resolved. No pneumothorax is seen. Bony structures are unremarkable. IMPRESSION: 1. Interval improvement in aeration of both upper lobes is seen with persistent dense consolidation in the right upper lobe and more streaky opacities in the left upper lobe remaining. 2. Bibasilar opacities are unchanged, and the previously seen pleural effusions have likely resolved. 3. Findings are most consistent with multifocal pneumonia. Clinical correlation requested.
--- NOTE | 2017-04-08 11:22 | PN- Cardiology ---
Subjective Subjective: The patient is more confused and agitated today. He is requiring some restraints. His vital signs are stable. The BUN and creatinine have increased slightly. Chest x-ray is somewhat improved in terms of pneumonia. Objective Vital Signs and I&Os Vital Signs Date Time Temp Pulse Resp B/P B/P Pulse O2 O2 Flow FiO2 Mean Ox Delivery Rate 04/08 924 105 133/53 04/08 0924 103 133/56 04/08 0829 87 98 04/08 0800 98.8 92 28 120/60 97 BIPAP 40% 04/08 0800 95 BIPAP 40% 04/08 0624 92 97 04/08 0400 98 BIPAP 40% 04/08 0306 90 96 04/08 0026 80 95 04/08 0021 87 99 04/08 0000 98.0 80 29 124/48 94 BIPAP 60% 04/08 0000 94 BIPAP 60% 04/07 2000 90 Nasal 5.0L Cannula 04/07 1600 92 Nasal 5.0L Cannula 04/07 1600 98.0 76 26 122/62 92 Nasal 5.0L Cannula 04/07 1206 93 Nasal 4.0L Cannula 04/07 1200 93 Nasal 4.0L Cannula Intake & Output 04/08 1600 04/08 0800 04/08 0000 04/07 1600 04/07 0800 04/07 0000 Intake Total 323 629 620 415 810 Output Total 300 667 919 1136 300 Balance 23 510 Intake, IV 323 479 420 415 570 Intake, Oral 0 150 200 240 Number 1 0 0 Bowel Movements Output, Urine 300 961 270 4319 300 Physical Exam: He is confused and not as responsive as yesterday HEENT exam unremarkable Chest a few rhonchi to limited exam Heart regular rhythm no murmurs Right foot is fully wrapped Current Medications: Current Medications Sig/Coral Start time Last Medication Dose Route Stop Time Status Admin Acetaminophen 500 MG TID 04/03 1156 AC 04/08 PO 09 Amlodipine Besylate 5 MG DAILY 04/03 1200 AC 04/08 PO 0925 Aspirin 81 MG DAILY 04/04 1000 AC 04/08 PO 0924 Atorvastatin Calcium 40 MG 1700 04/03 1700 AC 04/07 PO 1524 Ceftazidime 1,000 MG 0600,1800 04/06 0600 AC 04/08 IV 0659 Dextrose/Sodium 1,000 ML Q20H 04/06 1345 DC 04/07 [place]ide IV 1210 Fluticasone 2 SPRAY DAILY 04/03 1155 AC 04/08 Propionate THOMAS 0923 Furosemide 40 MG ONCE ONE 04/07 1500 DC 04/07 IV 04/07 1501 1524 Heparin Sodium 5,000 UNIT Q8 04/03 1400 AC 04/08 (Porcine) SC 0659 Insulin Aspart 0 Q4 04/08 1000 AC 04/08 SC 1012 Insulin Aspart 0 TIDAC/HS 04/04 2100 DC 04/08 SC 0750 Insulin Detemir 7 UNITS BID 04/08 1000 AC 04/08 SC 0924 Insulin Detemir 10 UNITS DAILY 04/07 1000 DC 04/07 SC 1000 Metoprolol Succinate 25 MG DAILY 04/03 1714 AC 04/08 PO 0924 Morphine Sulfate 2 MG Q4P PRN 04/04 1845 AC 04/08 IV 0822 Pantoprazole Sodium 40 MG DAILY 04/06 1345 AC 04/08 IV 0925 Pregabalin 50 MG TID 04/03 1155 AC 04/08 PO 0925 Results Last 48 Hrs of Labs/Mics: Laboratory Tests 04/08/17 0438: Anion Gap 12, Estimated GFR 43 L, Glucose 229 H, Calcium 8.2 L, Phosphorus 3.3, Magnesium 2.4 H, Total Bilirubin 0.9, AST 28, ALT 39, Albumin 2.8 L, CBC w Diff NO MAN DIFF REQ, RBC 2.57 L, MCV 91.5, MCH 30.2, MCHC 33.0, RDW 13.3, MPV 8.9, Gran % 85.0 H, Lymphocytes % 11.2 L, Monocytes % 2.9, Eosinophils % 0.7, Basophils % 0.2, Absolute Granulocytes 8.5 H, Absolute Lymphocytes 1.1 L, Absolute Monocytes 0.3, Absolute Eosinophils 0.1, Absolute Basophils 0, Random Vancomycin 12.4 04/07/17 0815: pH 7.47 H, pCO2 31 L, pO2 210 H, HCO3 22, ABG O2 Sat (Measured) 99.0, P-50 ( Temp Corrected) N, Carboxyhemoglobin 0.1 L, O2 Concentration % 100%, Temperature 97.8, Respiration Rate 26, O2 Delivery Method BIPAP, Vent Mode ST, Expiratory Pressure 6, Inspiratory Pressure 20, Phlebotomy Draw Site LEFT RADIAL 04/07/17 4477: Sodium Cancelled, Potassium Cancelled, Chloride Cancelled, Carbon Dioxide Cancelled, Anion Gap Cancelled, BUN Cancelled, Creatinine Cancelled, Glucose Cancelled, Calcium Cancelled, Phosphorus Cancelled, Magnesium Cancelled, Total Bilirubin Cancelled, AST Cancelled, ALT Cancelled, Albumin Cancelled 04/07/17 0425: Anion Gap 14, Estimated GFR 46 L, Glucose 328 H, Calcium 8.2 L, Phosphorus 3.3, Magnesium 2.5 H, Total Bilirubin 0.9, AST 31, ALT 38, Albumin 2.8 L, CBC w Diff NO MAN DIFF REQ, RBC 2.85 L, MCV 92.8, MCH 30.6, MCHC 33.0, RDW 13.3, MPV 8.4, Gran % 86.5 H, Lymphocytes % 7.3 L, Monocytes % 4.9, Eosinophils % 0.7, Basophils % 0.6, Absolute Granulocytes 9.4 H, Absolute Lymphocytes 0.8 L, Absolute Monocytes 0.5, Absolute Eosinophils 0.1, Absolute Basophils 0.1, Random Vancomycin 17.4 Microbiology 04/06 1120 NASOPHARYN: Influenza Virus A & B Rapid Smear - COMP Recent Imaging Studies: PATIENT: JIM WASSERMAN PRESENT AGE: 71 PATIENT ACCOUNT NO: [id number] : 47 LOCATION: [facility] ORDERING PHYSICIAN: Romy Farah MD SERVICE DATE: 04/08/17-0500 EXAM TYPE: RAD - XRY-PORTABLE CHEST XRAY EXAMINATION: CR PORTABLE CHEST CLINICAL INFORMATION: Shortness of breath, edema. Presumptive diagnosis of CHF and aspiration pneumonia. COMPARISON: Multiple prior chest x-rays, most recent of which is dated 04/07/2017. TECHNIQUE: Portable semierect view of the chest was obtained. FINDINGS: Evaluation is limited by multiple overlying leads and wires. Right atrial and right ventricular pacer wires are unchanged in position. The cardiomediastinal silhouette is mildly enlarged. There continues to be dense opacification of the right upper lobe with associated air bronchograms and volume loss, perhaps minimally improved when compared to the prior exam. There is also improved aeration in the patchy parenchymal opacity in the left perihilar and upper lung when compared to the prior exam. No significant change in bibasilar opacities is seen. Previously seen pleural effusions have likely resolved. No pneumothorax is seen. Bony structures are unremarkable. IMPRESSION: 1. Interval improvement in aeration of both upper lobes is seen with persistent dense consolidation in the right upper lobe and more streaky opacities in the left upper lobe remaining. 2. Bibasilar opacities are unchanged, and the previously seen pleural effusions have likely resolved. 3. Findings are most consistent with multifocal pneumonia. Clinical correlation requested. DICTATED BY: Lei LOZANO,Tessa Chaves DATE/TIME DICTATED:04/08/17853 FRAME CHANGER:INES Assessment/Plan Assessment/Plan The patient has multiple problems. He has acute kidney injury, elevated troponin, congestive heart failure, hypoxia, ischemic right foot. I recommend continued diuresis and treatment of his pneumonia. He is high risk for surgery and anesthesia but I feel we have very little choice but to address his ischemic foot in an aggressive manner. There is question of level of amputation that will take place and this will be discussed with podiatry and vascular surgery. He was seen by vascular yesterday who is considering transmetatarsal amputation versus BKA. This decision will be made between vascular and podiatry. I think the patient should undergo procedure in the very near future to avoid further sepsis etc. Continue telemetry? Yes
--- NOTE | 2017-04-08 12:39 | PN- Diabetes ---
Assessment/Plan Assessment: 70 y/o male, Hx of DM type 1 diagnosed when he was 14 years old. He was on an insulin pump with basal rate running at 0.9 units per hour in the past. His diabetes was complicated by neuropathy, retinopathy, nephropathy. Patient presented to the ED after sustaining an unwitnessed fall. He was admitted for positive troponin with peak troponin of 6.64, ongoing right foot infection and gangrene of 2nd toe and 3rd toe. He was transfered to ICU for SOB. He is now on BIPAP. Surgery was cancelled. His po intake has been poor and he has been confused. Currently he is on Levemir 10 units once a day, Novolog coverage every 4 hours. His FSGs were 258, 453, 345, 368, 183 and 364. Plan: 1. increase Levemir to 7 units twice a day; 2. adjust Novolog coverage every 4 hours; detail see the inpatient DM order; 3. monitor FSGs; please inform me if his glucose level remains > 250 later today and then I will adjust his insulin orders accordingly. will follow. Inpatient Diabetes Orders Every 4 Hours: Bolus Insulin: Novolog < 80 mg/dl: no coverage 80-100 mg/dl: no coverage 101-120 mg/dl: no coverage 121-150 mg/dl: no coverage 151-200 mg/dl: 2 units 201-250 mg/dl: 4 units 251-300 mg/dl: 6 units 301-350 mg/dl: 8 units 351-400 mg/dl: 10 units > 400 mg/dl: 12 units Subjective Subjective: He is still on BIPAP. Objective Last 24 Hrs of Vital Signs/I&O Vital Signs Date Time Temp Pulse Resp B/P B/P Pulse O2 O2 Flow FiO2 Mean Ox Delivery Rate 04/08 1158 95 BIPAP 40% 04/08 1154 58 99 04/08 0925 105 133/53 04/08 0924 103 133/56 04/08 0829 87 98 04/08 0800 98.8 92 28 120/60 97 BIPAP 40% 04/08 0800 95 BIPAP 40% 04/08 0624 92 97 04/08 0400 98 BIPAP 40% 04/08 0306 90 96 04/08 0026 80 95 04/08 0021 87 99 04/08 0000 98.0 80 29 124/48 94 BIPAP 60% 04/08 0000 94 BIPAP 60% 04/07 Nasal 5.0L Cannula 04/07 1599 92 Nasal 5.0L Cannula 04/07 1599 98.0 76 26 122/62 92 Nasal 5.0L Cannula Intake & Output 04/08 0800 04/08 0000 Intake Total 323 629 Output Total 300 400 Balance 23 229 Intake, IV 323 479 Intake, Oral 0 150 Number 1 0 Bowel Movements Output, Urine 300 400 Findings Pertinent Lab/[place] Results: Laboratory Tests 04/08 04/08 1148 0438 Chemistry Sodium (137 - 145 mmol/L) 142 Potassium (3.5 - 5.1 mmol/L) 4.5 Chloride (98 - 107 mmol/L) 102 Carbon Dioxide (22 - 30 mmol/L) 28 Anion Gap (5 - 16) 12 BUN (9 - 20 mg/dL) 63 H Creatinine (0.7 - 1.2 mg/dL) 1.6 H Estimated GFR (>60 ml/min) 43 L Glucose (65 - 99 mg/dL) 229 H Calcium (8.4 - 10.2 mg/dL) 8.2 L Phosphorus (2.5 - 4.5 mg/dL) 3.3 Magnesium (1.6 - 2.3 mg/dL) 2.4 H Total Bilirubin (0.2 - 1.3 mg/dL) 0.9 AST (17 - 59 U/L) 28 ALT (21 - 72 U/L) 39 Albumin (3.5 - 5.0 g/dL) 2.8 L Hematology CBC w Diff NO MAN DIFF REQ WBC (4.8 - 10.8 /CUMM) 10.0 RBC (4.70 - 6.10 /CUMM) 2.57 L Hgb (14.0 - 18.0 G/DL) 7.8 L Hct (42 - 52 %) 23.5 L MCV (80.0 - 94.0 FL) 91.5 MCH (27.0 - 31.0 PG) 30.2 MCHC (33.0 - 37.0 G/DL) 33.0 RDW (11.5 - 14.5 %) 13.3 Plt Count (130 - 400 /CUMM) 395 MPV (7.4 - 10.4 FL) 8.9 Gran % (42.2 - 75.2 %) 85.0 H Lymphocytes % (20.5 - 51.1 %) 11.2 L Monocytes % (1.7 - 9.3 %) 2.9 Eosinophils % (0 - 5 %) 0.7 Basophils % (0.0 - 2.0 %) 0.2 Absolute Granulocytes (1.4 - 6.5 /CUMM) 8.5 H Absolute Lymphocytes (1.2 - 3.4 /CUMM) 1.1 L Absolute Monocytes (0.10 - 0.60 /CUMM) 0.3 Absolute Eosinophils (0.0 - 0.7 /CUMM) 0.1 Absolute Basophils (0.0 - 0.2 /CUMM) 0 Toxicology Random Vancomycin (ug/ml) 10.6 12.4
[2017-04-08 16:00] VITALS: BP 110/50
[2017-04-08 22:51] LABS: ABSOLUTE BASOPHIL COUNT 0.1 /CUMM (0.0-0.2); ABSOLUTE EOSINOPHIL COUNT 0.4 /CUMM (0.0-0.7); ABSOLUTE GRANULOCYTE CT 7.1 /CUMM (1.4-6.5); ABSOLUTE LYMPH COUNT 1.5 /CUMM (1.2-3.4); ABSOLUTE MONOCYTE COUNT 0.4 /CUMM (0.10-0.60); BASOPHIL % 0.6 % (0.0-2.0); GRANULOCYTE % 75.1 % (42.2-75.2); HEMATOCRIT 22.9 % (42-52); MEAN CORPUSCULAR HGB 30.8 PG (27.0-31.0); MEAN CORPUSCULAR HGB CONC 33.4 G/DL (33.0-37.0); MEAN CORPUSCULAR VOLUME 92.1 FL (80.0-94.0); MEAN PLATELET VOLUME 8.6 FL (7.4-10.4); PLATELET COUNT 375 /CUMM (130-400); RBC DISTRIBUTION WIDTH 14.1 % (11.5-14.5); RED BLOOD CELL CT 2.49 /CUMM (4.70-6.10); WHITE BLOOD CELL COUNT 9.4 /CUMM (4.8-10.8)
[2017-04-09] VITALS: BP 120/68
[2017-04-09 05:02] LABS: ABSOLUTE BASOPHIL COUNT 0.1 /CUMM (0.0-0.2); ABSOLUTE EOSINOPHIL COUNT 0.4 /CUMM (0.0-0.7); ABSOLUTE GRANULOCYTE CT 7.7 /CUMM (1.4-6.5); ABSOLUTE LYMPH COUNT 1.4 /CUMM (1.2-3.4); ABSOLUTE MONOCYTE COUNT 0.4 /CUMM (0.10-0.60); BASOPHIL % 0.7 % (0.0-2.0); EOSINOPHIL % 4.3 % (0-5); HEMATOCRIT 24.3 % (42-52); MEAN CORPUSCULAR HGB 31.2 PG (27.0-31.0); MEAN CORPUSCULAR HGB CONC 33.9 G/DL (33.0-37.0); MEAN PLATELET VOLUME 8.1 FL (7.4-10.4); PLATELET COUNT 398 /CUMM (130-400); RBC DISTRIBUTION WIDTH 13.6 % (11.5-14.5); RED BLOOD CELL CT 2.64 /CUMM (4.70-6.10)
[2017-04-09 08:00] VITALS: BP 134/60
--- NOTE | 2017-04-09 08:13 | PN- Resident CRCU ---
Subjective HPI/CRCU Issues: Seen and examined patient, continues to be confused and disoriented. Patient was on BiPAP overnight and is currently on high flow. Acute hypoxic respiratory failure Acute lung injury Severe peripheral vascular disease Type 1 diabetes Renal insufficiency 24 Hour Events: Overnight patients blood sugar dropped down into the low 70s and was given a dextrose push. He also had a 6 beat SVT MAXIMUM TEMPERATURE 99 Heart rate in the range of 62-96 Paced rhythm Respiratory rate 26-28 Systolic blood pressure 102-144, diastolic blood pressure 45-61 Accu-Cheks 73,80,81 BiPAP 26/40/20/6, 97% Intake over 24 hours 1612/1400 Total intake 5563/6230 Objective Vital Signs & I&O Last 8 Hrs of Vitals and I&O: Intake & Output 04/09 1600 04/09 0800 04/09 0000 Intake Total 240 Output Total 300 Balance -60 Intake, Oral 240 Output, Urine 300 Laboratory Tests 04/09 04/08 0430 2100 Chemistry Sodium (137 - 145 mmol/L) 146 H Potassium (3.5 - 5.1 mmol/L) 3.9 Chloride (98 - 107 mmol/L) 105 Carbon Dioxide (22 - 30 mmol/L) 31 H Anion Gap (5 - 16) 10 BUN (9 - 20 mg/dL) 57 H Creatinine (0.7 - 1.2 mg/dL) 1.6 H Estimated GFR (>60 ml/min) 43 L Glucose (65 - 99 mg/dL) 73 Calcium (8.4 - 10.2 mg/dL) 8.5 Phosphorus (2.5 - 4.5 mg/dL) 3.3 Magnesium (1.6 - 2.3 mg/dL) 2.6 H Total Bilirubin (0.2 - 1.3 mg/dL) 0.6 AST (17 - 59 U/L) 31 ALT (21 - 72 U/L) 39 Albumin (3.5 - 5.0 g/dL) 2.9 L Hematology CBC w Diff NO MAN DIFF REQ NO MAN DIFF REQ WBC (4.8 - 10.8 /CUMM) 10.0 9.4 RBC (4.70 - 6.10 /CUMM) 2.64 L 2.49 L Hgb (14.0 - 18.0 G/DL) 8.3 L 7.7 L Hct (42 - 52 %) 24.3 L 22.9 L MCV (80.0 - 94.0 FL) 92.0 92.1 MCH (27.0 - 31.0 PG) 31.2 H 30.8 MCHC (33.0 - 37.0 G/DL) 33.9 33.4 RDW (11.5 - 14.5 %) 13.6 14.1 Plt Count (130 - 400 /CUMM) 398 375 MPV (7.4 - 10.4 FL) 8.1 8.6 Gran % (42.2 - 75.2 %) 77.0 H 75.1 Lymphocytes % (20.5 - 51.1 %) 14.2 L 15.6 L Monocytes % (1.7 - 9.3 %) 3.8 4.7 Eosinophils % (0 - 5 %) 4.3 4.0 Basophils % (0.0 - 2.0 %) 0.7 0.6 Absolute Granulocytes (1.4 - 6.5 /CUMM) 7.7 H 7.1 H Absolute Lymphocytes (1.2 - 3.4 /CUMM) 1.4 1.5 Absolute Monocytes (0.10 - 0.60 /CUMM) 0.4 0.4 Absolute Eosinophils (0.0 - 0.7 /CUMM) 0.4 0.4 Absolute Basophils (0.0 - 0.2 /CUMM) 0.1 0.1 04/08 1148 Toxicology Random Vancomycin (ug/ml) 10.6 Exam General Appearance: moderate distress Respiratory: accessory muscle use, rhonchi, wheezing, tachypneic Gastrointestinal: normal bowel sounds, soft, non-tender Extremities: no edema Current Medications: Current Medications Sig/Coral Start time Last Medication Dose Route Stop Time Status Admin Acetaminophen 500 MG TID 04/03 1156 AC 04/09 PO 0948 Amlodipine Besylate 5 MG DAILY 04/03 1200 AC 04/09 PO 0948 Aspirin 81 MG DAILY 04/04 1000 AC 04/09 PO 0948 Atorvastatin Calcium 40 MG 1700 04/03 1700 AC 04/07 PO 1524 Ceftazidime 1,000 MG 0600,1800 02/12 0600 AC 04/09 IV 0534 Dextrose 25 GM ONCE ONE 04/09 0515 DC 04/09 IV 04/09 0616 0616 Dextrose/Water 1,000 ML .Q20H 04/09 0815 AC 04/09 IV 0949 Fluticasone 2 SPRAY DAILY 04/03 1155 AC 04/09 Propionate THOMAS 0949 Furosemide 20 MG 1145 04/08 1145 DC 04/08 IV 04/08 1146 1138 Heparin Sodium 5,000 UNIT Q8 04/03 1400 AC 04/09 (Porcine) SC 0534 Insulin Aspart 0 Q4 04/08 1000 AC 04/08 SC 1403 Insulin Detemir 6 UNITS BID 04/09 1000 AC 04/09 SC 0949 Insulin Detemir 7 UNITS BID 04/08 1000 DC 04/08 SC 2153 Lorazepam 0.5 MG ONCE ONE 04/08 1145 DC 04/08 IV 04/08 1146 1142 Metoprolol Succinate 25 MG DAILY 04/03 1714 AC 04/09 PO 0948 Morphine Sulfate 2 MG Q4P PRN 04/04 1845 AC 04/08 IV 0822 Pantoprazole Sodium 40 MG DAILY 04/06 1345 AC 04/09 IV 0948 Pregabalin 50 MG TID 04/03 1155 AC 04/09 PO 0948 Vancomycin HCl 1,000 MG ONCE ONE 04/08 1130 DC 04/08 Dextrose/Water 250 ML IV 04/08 1229 1236 Impression/Plan Impression/Problem List Impression: 71-year-old gentleman with a past medical history of type I diabetes on insulin pump (complicated by neuropathy, retinopathy and nephropathy), complete heart block status post pacemaker, PVD previous admission to [facility] 2 weeks prior to admission for 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 random vanco level today pending MRSA OM of the right foot, which is complicated by gangrenous changes in the right foot. Solis Perez MD spoke to son this morning regarding goals of care. Son would not like to proceed with any surgeries and he also does not wish patient to be on BiPAP. If patient continues to deteriorate then son would like him to become comfort care. Circulatory: Positive troponin peaked at 6.64 which was thought be likely due to type 2 MN. No EKG changes s/o MN. Component of volume overload, PRN diuresis while monitoring the sr creatinine closely. Echocardiogram showed HFrEF and high RVSP around 60mm of Hg. Dr Avery, business librarian on board Hematology- H/H stable 8.3 Metabolic- PARRIS secondary to hypoperfusion and vancomycin . Sr cr 2.0-->1.6 (04/08). SPEP pending. Nephrology on board Endo on board for his type DM, episodes of hypoglycemia Levemir decreased to 6 units twice a day with Novolog coverage every 4 hours; will inform dr Steiner if FSG are above >250, started on D5 at 50 cc Aliamentry: On CC1 diet, has poor PO intake Neurology: dementia at baseline also seems to have some degree of delirium as well (2/2 infection vs elevated FSGS vs ICU delirium) Skin: Unstageable pressure ulcer noted on right upper buttocks which was present on admission. Please see wound care note for descriptions of his other ulcers. DVT ppx DNR/DNI Problem List: 1. PARRIS (acute kidney injury) 2. Osteomyelitis Pain Ratin Tomorrow's Labs & Rationales: none required Plan DVT/Prophylaxis: pharmacological
--- NOTE | 2017-04-09 08:50 | PN- CRCU ---
Subjective HPI/Critical Care Issues: Overnight patients blood sugar dropped down into the low 70s and was given a dextrose push. He also had a 6 beat SVT MAXIMUM TEMPERATURE 99 Heart rate in the range of 62-96 Paced rhythm Respiratory rate 26-28 Systolic blood pressure 102-144, diastolic blood pressure 45-61 Accu-Cheks 73,80,81 BiPAP 26/40/20/6, 97%, now on nasal cannula Intake over 24 hours 1612/1400 Total intake 5563/6230 IMPRESSION: 1. Interval improvement in aeration of both upper lobes is seen with persistent dense consolidation in the right upper lobe and more streaky opacities in the left upper lobe remaining. 2. Bibasilar opacities are unchanged, and the previously seen pleural effusions have likely resolved. 3. Findings are most consistent with multifocal pneumonia. Clinical correlation requested. DICTATED BY: Lei LOZANO,Tessa Chaves DATE/TIME DICTATED:04/08/17853 Objective Current Medications: Current Medications Sig/Coral Start time Last Medication Dose Route Stop Time Status Admin Acetaminophen 500 MG TID 04/03 1156 AC 04/08 PO 2151 Amlodipine Besylate 5 MG DAILY 04/03 1200 AC 04/08 PO 0925 Aspirin 81 MG DAILY 04/04 1000 AC 04/08 PO 0924 Atorvastatin Calcium 40 MG 1700 04/03 1700 AC 04/07 PO 1524 Ceftazidime 1,000 MG 0600,1800 04/06 0600 AC 04/09 IV 0534 Dextrose 25 GM ONCE ONE 04/09 0615 DC 04/09 IV 04/09 0616 0616 Dextrose/Water 1,000 ML .Q20H 04/09 0815 AC IV Fluticasone 2 SPRAY DAILY 04/03 1155 AC 04/08 Propionate THOMAS 0923 Furosemide 20 MG 1145 04/08 1145 DC 04/08 IV 04/08 1146 1138 Heparin Sodium 5,000 UNIT Q8 04/03 1400 AC 04/09 (Porcine) SC 0534 Insulin Aspart 0 Q4 04/08 1000 AC 04/08 SC 1403 Insulin Detemir 6 UNITS BID 04/09 1000 AC SC Insulin Detemir 7 UNITS BID 04/08 1000 DC 04/08 SC 2153 Lorazepam 0.5 MG ONCE ONE 04/08 1145 DC 04/08 IV 04/08 1146 1142 Metoprolol Succinate 25 MG DAILY 04/03 1714 AC 04/08 PO 0924 Morphine Sulfate 2 MG Q4P PRN 04/04 1845 AC 04/08 IV 0822 Pantoprazole Sodium 40 MG DAILY 04/06 1345 AC 04/08 IV 0925 Pregabalin 50 MG TID 04/03 1155 AC 04/08 PO 2151 Vancomycin HCl 1,000 MG ONCE ONE 04/08 1130 DC 04/08 Dextrose/Water 250 ML IV 04/08 1229 1236 Vital Signs & I&O Last 24 Hrs of Vitals and I&O: Vital Signs Date Time Temp Pulse Resp B/P B/P Pulse O2 O2 Flow FiO2 Mean Ox Delivery Rate 04/09 08 93 Nasal 5.0L Cannula 04/09 08 98.2 82 20 134/60 93 Nasal 5.0L Cannula 04/09 0400 93 Nasal 4.0L Cannula 04/09 0000 95 Nasal 4.0L Cannula 04/09 0000 99.0 77 24 120/68 95 Nasal 4.0L Cannula 04/08 2000 98 Nasal 4.0L Cannula 04/08 1900 83 96 04/08 1610 65 98 04/08 1600 98 BIPAP 35% 04/08 1600 98.4 68 26 110/50 98 BIPAP 35% 04/08 1441 68 99 04/08 1158 95 BIPAP 40% 04/08 1154 58 99 04/08 0925 105 133/53 04/08 0924 103 133/56 Intake & Output 04/09 1600 04/09 0800 04/09 0000 Intake Total 240 Output Total 300 Balance -60 Intake, Oral 240 Output, Urine 300 Impression/Plan Impression/Plan Impression/Plan: On nasal cannula with waxing and waning of mental status Lungs rhonchi and scattered crackles on the right, much improved from yesterday Heart regular rhythm with no murmur Abdomen is soft, nontender with positive bowel sounds Extremities necrotic right second and third toes; left foot petechial/ purpuric rash Land catheter is in place IMPRESSION This is a gentleman with diabetes type 1 with multiple complications including neuropathy, significant peripheral vascular disease, previous pacemaker far heart block, previous history of MRSA osteomyelitis with previous foot surgery in the left side with femoral angioplasty, worsening performance status, previous normal pulmonary function tests, multiple organ dysfunction, now has a following issues * Slowly improving Acute hypoxemic respiratory failure now on nasal cannula related to combination of factors which include congestive heart failure both systolic and diastolic failure with bilateral probable aspiration pneumonitis now on broad-spectrum antibiotics. * Improving Acute lung injury probably related to aspiration pneumonitis * Significant peripheral vascular disease with gangrene and probable osteomyelitis of his left foot. Infectious disease, podiatry and vascular surgery is following the patient * Type 1 diabetes with multiple organ dysfunction including diabetic nephropathy , neuropathy, peripheral vascular disease and retinopathy. * CKD with renal insufficiency since admission most likely related to combination of factors including his underlying diabetic kidney disease. As he recently did have an angiogram he may have had athero-embolism * Reduced ejection fraction with EF of 45-50% with abnormal diastolic dysfunction which appears to be chronic * Severe peripheral vascular disease with dry gangrene of the left foot with probable osteomyelitis as well, needs surg Recommendation Pt should go to OR if appropriate as he has made some progress Continue antibiotics per ID Cont bipap at hs if still dyspneic Cont gentle diuresis only if miguel a Keep his head of bed elevated Continue to follow his glucose closely Continue low-dose morphine, only if needed Hold lasix now as he appears euvoluemic
--- NOTE | 2017-04-09 09:34 | PN- Cardiology ---
Subjective Subjective: The patient is a little more alert today. He is responsive and cooperative. He states his breathing is still a little off. Objective Vital Signs and I&Os Vital Signs Date Time Temp Pulse Resp B/P B/P Pulse O2 O2 Flow FiO2 Mean Ox Delivery Rate 04/09 0800 93 Nasal 5.0L Cannula 04/09 0800 98.2 82 20 134/60 93 Nasal 5.0L Cannula 04/09 0400 93 Nasal 4.0L Cannula 04/09 0000 95 Nasal 4.0L Cannula 04/09 0000 99.0 77 24 120/68 95 Nasal 4.0L Cannula 04/08 2000 98 Nasal 4.0L Cannula 04/08 1900 83 96 04/08 1610 65 98 04/08 1600 98 BIPAP 35% 04/08 1600 98.4 68 26 110/50 98 BIPAP 35% 04/08 1441 68 99 04/08 1158 95 BIPAP 40% 04/08 1154 58 99 Intake & Output 04/09 1600 04/09 0800 04/09 0000 04/08 1600 04/08 0800 04/08 0000 Intake Total 240 690 323 629 Output Total 300 225 300 400 Balance -60 465 23 229 Intake, IV 150 323 479 Intake, Oral 240 540 0 150 Number 0 1 0 Bowel Movements Output, Urine 300 225 300 400 Physical Exam: Lungs revealed diffuse rhonchi and coarse rales Heart reveals systolic murmur at the base. Current Medications: Current Medications Sig/Coral Start time Last Medication Dose Route Stop Time Status Admin Acetaminophen 500 MG TID 04/03 1156 AC 04/08 PO 2151 Amlodipine Besylate 5 MG DAILY 04/03 1200 AC 04/08 PO 0925 Aspirin 81 MG DAILY 04/04 1000 AC 04/08 PO 0924 Atorvastatin Calcium 40 MG 1700 04/03 1700 AC 04/07 PO 1524 Ceftazidime 1,000 MG 0600,1800 04/06 0600 AC 04/09 IV 0534 Dextrose 25 GM ONCE ONE 04/09 0615 DC 04/09 IV 04/09 0616 0616 Dextrose/Water 1,000 ML .Q20H 04/09 0815 IV Fluticasone 2 SPRAY DAILY 04/03 1155 AC 04/08 Propionate THOMAS 0923 Furosemide 20 MG 1145 04/08 1145 DC 04/08 IV 04/08 1146 1138 Heparin Sodium 5,000 UNIT Q8 04/03 1400 AC 04/09 (Porcine) SC 0534 Insulin Aspart 0 Q4 04/08 1000 AC 04/08 SC 1403 Insulin Detemir 6 UNITS BID 04/09 1000 AC SC Insulin Detemir 7 UNITS BID 04/08 1000 DC 04/08 SC 2153 Lorazepam 0.5 MG ONCE ONE 04/08 1145 DC 04/08 IV 04/08 1146 1142 Metoprolol Succinate 25 MG DAILY 04/03 1714 AC 04/08 PO 0924 Morphine Sulfate 2 MG Q4P PRN 04/04 1845 AC 04/08 IV 0822 Pantoprazole Sodium 40 MG DAILY 04/06 1345 AC 04/08 IV 0925 Pregabalin 50 MG TID 04/03 1155 AC 04/08 PO 2151 Vancomycin HCl 1,000 MG ONCE ONE 04/08 1130 DC 04/08 Dextrose/Water 250 ML IV 04/08 1229 1236 Results Last 48 Hrs of Labs/Mics: Laboratory Tests 04/09/17 0430: Anion Gap 10, Estimated GFR 43 L, Glucose 73, Calcium 8.5, Phosphorus 3.3, Magnesium 2.6 H, Total Bilirubin 0.6, AST 31, ALT 39, Albumin 2.9 L, CBC w Diff NO MAN DIFF REQ, RBC 2.64 L, MCV 92.0, MCH 31.2 H, MCHC 33.9, RDW 13.6, MPV 8.1, Gran % 77.0 H, Lymphocytes % 14.2 L, Monocytes % 3.8, Eosinophils % 4.3, Basophils % 0.7, Absolute Granulocytes 7.7 H, Absolute Lymphocytes 1.4, Absolute Monocytes 0.4, Absolute Eosinophils 0.4, Absolute Basophils 0.1 04/08/17 2100: CBC w Diff NO MAN DIFF REQ, RBC 2.49 L, MCV 92.1, MCH 30.8, MCHC 33.4, RDW 14.1 , MPV 8.6, Gran % 75.1, Lymphocytes % 15.6 L, Monocytes % 4.7, Eosinophils % 4.0, Basophils % 0.6, Absolute Granulocytes 7.1 H, Absolute Lymphocytes 1.5, Absolute Monocytes 0.4, Absolute Eosinophils 0.4, Absolute Basophils 0.1 04/08/17 1148: Random Vancomycin 10.6 04/08/17 0438: Anion Gap 12, Estimated GFR 43 L, Glucose 229 H, Calcium 8.2 L, Phosphorus 3.3, Magnesium 2.4 H, Total Bilirubin 0.9, AST 28, ALT 39, Albumin 2.8 L, CBC w Diff NO MAN DIFF REQ, RBC 2.57 L, MCV 91.5, MCH 30.2, MCHC 33.0, RDW 13.3, MPV 8.9, Gran % 85.0 H, Lymphocytes % 11.2 L, Monocytes % 2.9, Eosinophils % 0.7, Basophils % 0.2, Absolute Granulocytes 8.5 H, Absolute Lymphocytes 1.1 L, Absolute Monocytes 0.3, Absolute Eosinophils 0.1, Absolute Basophils 0, Random Vancomycin 12.4 Assessment/Plan Assessment/Plan The patient has multiple problems. He has acute kidney injury, elevated troponin, congestive heart failure, hypoxia, ischemic right foot. He has improved from a standpoint of CHF. I recommend consulting podiatry and vascular and scheduling him for whichever procedure they feel is most appropriate in the near future. Continue telemetry? Yes
--- NOTE | 2017-04-09 10:32 | PN- Infect Dx ---
Subjective Subjective: Afebrile. He complains of shortness of breath. Objective Last 24 Hrs of Vital Signs/I&O Vital Signs Date Time Temp Pulse Resp B/P B/P Pulse O2 O2 Flow FiO2 Mean Ox Delivery Rate 04/09 0948 102 145/72 04/09 0948 87 145/72 04/09 0800 93 Nasal 5.0L Cannula 04/09 0800 98.2 82 20 134/60 93 Nasal 5.0L Cannula 04/09 0400 93 Nasal 4.0L Cannula 04/09 0000 95 Nasal 4.0L Cannula 04/09 0000 99.0 77 24 120/68 95 Nasal 4.0L Cannula 04/08 2000 98 Nasal 4.0L Cannula 04/08 1900 83 96 04/08 1610 65 98 04/08 1600 98 BIPAP 35% 04/08 1600 98.4 68 26 110/50 98 BIPAP 35% 04/08 1441 68 99 04/08 1158 95 BIPAP 40% 04/08 1154 58 99 Intake & Output 04/09 1600 04/09 0800 04/09 0000 Intake Total 240 Output Total 300 Balance -60 Intake, Oral 240 Output, Urine 300 Physical Exam Other Physical Findings: He appears somewhat agitated but in no acute distress Lungs bilateral rhonchi Heart regular rhythm with no murmur Extremities right foot dressing intact Land catheter remains in place Results Last 24 Hours of Lab Results: Laboratory Tests 04/09 04/08 0430 2100 Chemistry Sodium (137 - 145 mmol/L) 146 H Potassium (3.5 - 5.1 mmol/L) 3.9 Chloride (98 - 107 mmol/L) 105 Carbon Dioxide (22 - 30 mmol/L) 31 H Anion Gap (5 - 16) 10 BUN (9 - 20 mg/dL) 57 H Creatinine (0.7 - 1.2 mg/dL) 1.6 H Estimated GFR (>60 ml/min) 43 L Glucose (65 - 99 mg/dL) 73 Calcium (8.4 - 10.2 mg/dL) 8.5 Phosphorus (2.5 - 4.5 mg/dL) 3.3 Magnesium (1.6 - 2.3 mg/dL) 2.6 H Total Bilirubin (0.2 - 1.3 mg/dL) 0.6 AST (17 - 59 U/L) 31 ALT (21 - 72 U/L) 39 Albumin (3.5 - 5.0 g/dL) 2.9 L Hematology CBC w Diff NO MAN DIFF REQ NO MAN DIFF REQ WBC (4.8 - 10.8 /CUMM) 10.0 9.4 RBC (4.70 - 6.10 /CUMM) 2.64 L 2.49 L Hgb (14.0 - 18.0 G/DL) 8.3 L 7.7 L Hct (42 - 52 %) 24.3 L 22.9 L MCV (80.0 - 94.0 FL) 92.0 92.1 MCH (27.0 - 31.0 PG) 31.2 H 30.8 MCHC (33.0 - 37.0 G/DL) 33.9 33.4 RDW (11.5 - 14.5 %) 13.6 14.1 Plt Count (130 - 400 /CUMM) 398 375 MPV (7.4 - 10.4 FL) 8.1 8.6 Gran % (42.2 - 75.2 %) 77.0 H 75.1 Lymphocytes % (20.5 - 51.1 %) 14.2 L 15.6 L Monocytes % (1.7 - 9.3 %) 3.8 4.7 Eosinophils % (0 - 5 %) 4.3 4.0 Basophils % (0.0 - 2.0 %) 0.7 0.6 Absolute Granulocytes (1.4 - 6.5 /CUMM) 7.7 H 7.1 H Absolute Lymphocytes (1.2 - 3.4 /CUMM) 1.4 1.5 Absolute Monocytes (0.10 - 0.60 /CUMM) 0.4 0.4 Absolute Eosinophils (0.0 - 0.7 /CUMM) 0.4 0.4 Absolute Basophils (0.0 - 0.2 /CUMM) 0.1 0.1 04/08 1148 Toxicology Random Vancomycin (ug/ml) 10.6 Last 24 Hours of [place] Results: No new cultures Assessment/Plan Impression: Stable, with temperatures and white blood cell count remaining normal, though still in mild respiratory distress, possibly secondary to fluid overload versus pneumonia, now Day 5 of Ceftazidime for possible aspiration pneumonia and Day 17 of Vancomycin for residual osteomyelitis of the right foot now 16 days status post revisional partial first ray resection. His right foot gangrene has progressed to involve the second and third toes but, apparently, his family has decided against any further surgical intervention. If he does not undergo further surgery the role of continuing antibiotics is unclear. Suggestion: 1. Remove Land catheter 2. If no further surgery is planned would discontinue Vancomycin 3. Continue Ceftazidime
--- NOTE | 2017-04-09 10:36 | PN- Diabetes ---
Assessment/Plan Assessment: 70 y/o male, Hx of DM type 1 diagnosed when he was 14 years old. He was on an insulin pump with basal rate running at 0.9 units per hour in the past. His diabetes was complicated by neuropathy, retinopathy, nephropathy. Patient presented to the ED after sustaining an unwitnessed fall. He was admitted for positive troponin with peak troponin of 6.64, ongoing right foot infection and gangrene of 2nd toe and 3rd toe. He was transfered to ICU for SOB. He is now on BIPAP intermittently. Surgery was cancelled. His po intake has been poor and he has been confused. But IVF was discomntinued. Currently he is on Levemir 7 units twice a day, Novolog coverage every 4 hours. His FSGs were 361, 117, 81, 80, 80 and 73. Am lab from this morning showed sodium 146, Cr 1.6 and glucose 73. Plan: 1. recommend restart IVF D5W at 50 ml/hour; 2. decrease Levemir to 6 units twice a day; 3. continue the current novolog coverage every 4 hours; 4. monitor FSGs and electrolytes. will follow. Subjective Subjective: He is sleeping after he received ativan. Objective Last 24 Hrs of Vital Signs/I&O Vital Signs Date Time Temp Pulse Resp B/P B/P Pulse O2 O2 Flow FiO2 Mean Ox Delivery Rate 04/09 0948 102 145/72 04/09 0948 87 145/72 04/09 0800 93 Nasal 5.0L Cannula 04/09 0800 98.2 82 20 134/60 93 Nasal 5.0L Cannula 04/09 0400 93 Nasal 4.0L Cannula 04/09 0000 95 Nasal 4.0L Cannula 04/09 0000 99.0 77 24 120/68 95 Nasal 4.0L Cannula 04/08 2000 98 Nasal 4.0L Cannula 04/08 1900 83 96 04/08 1610 65 98 04/08 1600 98 BIPAP 35% 04/08 1600 98.4 68 26 110/50 98 BIPAP 35% 04/08 1441 68 99 04/08 1158 95 BIPAP 40% 04/08 1154 58 99 Intake & Output 04/09 1600 04/09 0800 04/09 0000 Intake Total 240 Output Total 300 Balance -60 Intake, Oral 240 Output, Urine 300 Findings Pertinent Lab/[place] Results: Laboratory Tests 04/09 04/08 0430 2100 Chemistry Sodium (137 - 145 mmol/L) 146 H Potassium (3.5 - 5.1 mmol/L) 3.9 Chloride (98 - 107 mmol/L) 105 Carbon Dioxide (22 - 30 mmol/L) 31 H Anion Gap (5 - 16) 10 BUN (9 - 20 mg/dL) 57 H Creatinine (0.7 - 1.2 mg/dL) 1.6 H Estimated GFR (>60 ml/min) 43 L Glucose (65 - 99 mg/dL) 73 Calcium (8.4 - 10.2 mg/dL) 8.5 Phosphorus (2.5 - 4.5 mg/dL) 3.3 Magnesium (1.6 - 2.3 mg/dL) 2.6 H Total Bilirubin (0.2 - 1.3 mg/dL) 0.6 AST (17 - 59 U/L) 31 ALT (21 - 72 U/L) 39 Albumin (3.5 - 5.0 g/dL) 2.9 L Hematology CBC w Diff NO MAN DIFF REQ NO MAN DIFF REQ WBC (4.8 - 10.8 /CUMM) 10.0 9.4 RBC (4.70 - 6.10 /CUMM) 2.64 L 2.49 L Hgb (14.0 - 18.0 G/DL) 8.3 L 7.7 L Hct (42 - 52 %) 24.3 L 22.9 L MCV (80.0 - 94.0 FL) 92.0 92.1 MCH (27.0 - 31.0 PG) 31.2 H 30.8 MCHC (33.0 - 37.0 G/DL) 33.9 33.4 RDW (11.5 - 14.5 %) 13.6 14.1 Plt Count (130 - 400 /CUMM) 398 375 MPV (7.4 - 10.4 FL) 8.1 8.6 Gran % (42.2 - 75.2 %) 77.0 H 75.1 Lymphocytes % (20.5 - 51.1 %) 14.2 L 15.6 L Monocytes % (1.7 - 9.3 %) 3.8 4.7 Eosinophils % (0 - 5 %) 4.3 4.0 Basophils % (0.0 - 2.0 %) 0.7 0.6 Absolute Granulocytes (1.4 - 6.5 /CUMM) 7.7 H 7.1 H Absolute Lymphocytes (1.2 - 3.4 /CUMM) 1.4 1.5 Absolute Monocytes (0.10 - 0.60 /CUMM) 0.4 0.4 Absolute Eosinophils (0.0 - 0.7 /CUMM) 0.4 0.4 Absolute Basophils (0.0 - 0.2 /CUMM) 0.1 0.1 04/08 1148 Toxicology Random Vancomycin (ug/ml) 10.6
--- NOTE | 2017-04-09 11:37 | RADIOLOGY REPORT ---
EXAMINATION: XR PORTABLE CHEST CLINICAL INFORMATION: Tachypnea. Pneumonia. COMPARISON: 04/07/2017 and 04/08/2017 TECHNIQUE: Portable frontal view of the chest was obtained. FINDINGS: There is a right prepectoral cardiac pacemaker with transvenous leads extending to the right atrium and right ventricle. Cardiac silhouette is mildly enlarged. Pulmonary vessels appear congested and indistinct. Again noted is patchy airspace opacity in both lungs. The airspace opacity appears increased in the left upper lobe compared to 04/08/2017, but not significantly changed compared to 04/07/2017. Subpleural septal thickening in lower lung zones is compatible with interstitial edema. Probable trace bilateral pleural effusions. No pneumothorax or other acute interval change. IMPRESSION: Persistent multilobar pneumonia and/or pulmonary edema. The airspace opacity in the left upper lobe is worse compared to 04/08/2017.
[2017-04-09 16:00] VITALS: BP 138/72
[2017-04-09 23:00] VITALS: BP 150/80
[2017-04-10 08:00] VITALS: BP 150/80
[2017-04-10 08:00] LABS: ABSOLUTE BASOPHIL COUNT 0 /CUMM (0.0-0.2); ABSOLUTE EOSINOPHIL COUNT 0 /CUMM (0.0-0.7); ABSOLUTE GRANULOCYTE CT 10.3 /CUMM (1.4-6.5); ABSOLUTE LYMPH COUNT 0.7 /CUMM (1.2-3.4); ABSOLUTE MONOCYTE COUNT 0.2 /CUMM (0.10-0.60); BASOPHIL % 0.1 % (0.0-2.0); EOSINOPHIL % 0.1 % (0-5); HEMATOCRIT 26.8 % (42-52); MEAN CORPUSCULAR HGB 30.5 PG (27.0-31.0); MEAN CORPUSCULAR HGB CONC 33.2 G/DL (33.0-37.0); MEAN CORPUSCULAR VOLUME 91.8 FL (80.0-94.0); MEAN PLATELET VOLUME 8.4 FL (7.4-10.4); PLATELET COUNT 432 /CUMM (130-400); RBC DISTRIBUTION WIDTH 13.7 % (11.5-14.5); RED BLOOD CELL CT 2.92 /CUMM (4.70-6.10); WHITE BLOOD CELL COUNT 11.2 /CUMM (4.8-10.8)
--- NOTE | 2017-04-10 08:03 | PN- Housestaff ---
Subjective Follow-up For: Acute hypoxic respiratory failure Acute lung injury Severe peripheral vascular disease Type 1 diabetes Renal insufficiency Subjective: Seen and examined patient, continues to be confused and disoriented. Was placed on high flow O2 early this morning. Continues to be in moderated distress. Review of Systems Constitutional: Reports: see HPI. Objective Last 24 Hrs of Vital Signs/I&O Vital Signs Date Time Temp Pulse Resp B/P B/P Pulse O2 O2 Flow FiO2 Mean Ox Delivery Rate 04/10 0917 84 150/80 04/10 09 84 150/80 04/10 0800 96 Nasal 95% Cannula 04/10 08 97.5 84 26 150/80 96 Nasal 95% Cannula 04/10 0305 88 Nasal 95% Cannula 04/10 0000 90 Nasal Cannula 04/09 2300 97.9 87 30 150/80 92 Nasal Cannula 04/09 1600 97 Nasal 70% Cannula 04/09 1600 98.7 83 22 138/72 97 Nasal 70% Cannula Intake & Output 04/10 1600 04/10 0800 04/10 0000 Intake Total 154 520 700 Output Total 400 350 Balance 154 120 350 Intake, IV 34 400 220 Intake, Oral 120 120 480 Number 1 Bowel Movements Output, Stool 0 Output, Urine 400 350 Physical Exam General Appearance: Moderate Distress Cardiovascular: Regular Rate Lungs: b/l rhonchi Abdomen: Normal Bowel Sounds, Soft, No Tenderness Extremities: No Edema, right foot necrotic ulcer Current Medications: Current Medications Sig/Coral Start time Last Medication Dose Route Stop Time Status Admin Acetaminophen 500 MG TID 04/03 1156 AC 04/10 PO 0916 Amlodipine Besylate 5 MG DAILY 04/03 1200 AC 04/10 PO 0917 Aspirin 81 MG DAILY 04/04 1000 AC 04/10 PO 0916 Atorvastatin Calcium 40 MG 1700 04/03 1700 AC 04/09 PO 1556 Ceftazidime 1,000 MG 0600,1800 /12 0600 AC 04/10 IV 0520 Dextrose/Water 1,000 ML .Q20H 04/09 0815 AC 04/10 IV 0251 Fluticasone 2 SPRAY DAILY 04/03 1155 AC 04/10 Propionate THOMAS 0951 Furosemide 40 MG ONCE ONE 04/10 1030 DC 04/10 IV 04/10 1031 1037 Heparin Sodium 5,000 UNIT Q8 04/03 1400 AC 04/10 (Porcine) SC 0520 Insulin Aspart 0 Q4 02/14 1000 04/10 SC 1037 Insulin Detemir 7 UNITS BID 04/10 1000 AC 04/10 MI 0951 Insulin Detemir 6 UNITS BID 04/09 1000 DC 04/09 MI 2058 Metoprolol Succinate 25 MG DAILY 04/03 1714 04/10 PO 0916 Morphine Sulfate 2 MG Q4P PRN 04/04 1845 04/10 IV 0521 Pantoprazole Sodium 40 MG DAILY 04/06 1345 AC 04/10 IV 0916 Pregabalin 50 MG TID 04/03 1155 04/10 PO 0916 Last 24 Hrs of Lab/[place] Results Last 24 Hrs of Labs/Mics: Laboratory Tests 04/10/17 0700: Anion Gap 13, Estimated GFR > 60, Glucose 163 H, Calcium 8.5, Phosphorus 3.3, Magnesium 2.6 H, Total Bilirubin 0.6, AST 29, ALT 34, Albumin 2.9 L, CBC w Diff NO MAN DIFF REQ, RBC 2.92 L, MCV 91.8, MCH 30.5, MCHC 33.2, RDW 13.7, MPV 8.4, Gran % 92.0 H, Lymphocytes % 5.8 L, Monocytes % 2.0, Eosinophils % 0.1, Basophils % 0.1, Absolute Granulocytes 10.3 H, Absolute Lymphocytes 0.7 L, Absolute Monocytes 0.2, Absolute Eosinophils 0, Absolute Basophils 0 Assessment/Plan Assessment: 71-year-old gentleman with a past medical history of type I diabetes on insulin pump (complicated by neuropathy, retinopathy and nephropathy), complete heart block status post pacemaker, PVD previous admission to [facility] 2 weeks prior to admission for 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 and right SFA angioplasty (discharged to short-term rehabilitation on vancomycin) presented to [facility] with a chief concern of questionable syncopal episode Assessment and plan Acute on chronic hypoxemic respiratory failure currently on high flow Multifactorial with decompensated HF vs pneumonia no aggressive interventions including pressors PVD; s/p MRSA OM; Right foot gangrene involving second and third toe Family does not wish surgery Type II TN multifactorial -history of biventricular pacemaker(2009) for complete heart block;RCA 100% on medical management - Troponin peaked at 6.64 which was thought be likely due to type 2 TN. No EKG changes s/o TN. Component of volume overload, PRN diuresis while monitoring the sr creatinine closely. Echocardiogram showed HFrEF and high RVSP around 60mm of Hg. Dr Avery, drilling fluids specialist on board per cardio will diuresis with 40 IV lasix today. Acute kidney injury; mutifactorial : hypoperfusion and vancomycin improving Sr cr 2.0-->1.2 (04/10). Type 1 Diabetes. Endocrinology on board, appreciate recomendations. dementia at baseline also seems to have some degree of delirium as well (2/2 infection vs elevated FSGS vs ICU delirium) Skin: Unstageable pressure ulcer noted on right upper buttocks which was present on admission. Please see wound care note for descriptions of his other ulcers. Code Status - DNR/DNI if he deteriorates to be made comfort care. DVT prophylaxis - Heparin. poor prognosis Problem List: 1. PARRIS (acute kidney injury) 2. History of diabetes mellitus, type I 3. Hyperglycemia Pain Ratin Pain Location: na Pain Goal: Pain 4 or less Pain Plan: current regimen Tomorrow's Labs & Rationales: none required
--- NOTE | 2017-04-10 08:39 | PN- CRCU ---
Subjective HPI/Critical Care Issues: DOing poorly On high flow Confused Slightly worse Objective Current Medications: Current Medications Sig/Coral Start time Last Medication Dose Route Stop Time Status Admin Acetaminophen 500 MG TID 04/03 1156 AC 04/09 PO 2100 Amlodipine Besylate 5 MG DAILY 04/03 1200 AC 04/09 PO 0948 Aspirin 81 MG DAILY 04/04 1000 AC 04/09 PO 0948 Atorvastatin Calcium 40 MG 1700 04/03 1700 AC 04/09 PO 1556 Ceftazidime 1,000 MG 0600,1800 04/06 0600 AC 04/10 IV 0520 Dextrose/Water 1,000 ML .Q20H 04/09 0815 AC 04/10 IV 0251 Fluticasone 2 SPRAY DAILY 04/03 1155 AC 04/09 Propionate THOMAS 0949 Heparin Sodium 5,000 UNIT Q8 04/03 1400 AC 04/10 (Porcine) SC 0520 Insulin Aspart 0 Q4 04/08 1000 AC 04/10 SC 0520 Insulin Detemir 7 UNITS BID 04/10 1000 AC SC Insulin Detemir 6 UNITS BID 04/09 1000 DC 04/09 SC 2059 Metoprolol Succinate 25 MG DAILY 04/03 1714 AC 04/09 PO 0948 Morphine Sulfate 2 MG Q4P PRN 04/04 1845 AC 04/10 IV 0521 Pantoprazole Sodium 40 MG DAILY 04/06 1345 AC 04/09 IV 0948 Pregabalin 50 MG TID 04/03 1155 AC 04/09 PO 2100 Vital Signs & I&O Last 24 Hrs of Vitals and I&O: Vital Signs Date Time Temp Pulse Resp B/P B/P Pulse O2 O2 Flow FiO2 Mean Ox Delivery Rate 04/10 0305 88 Nasal 95% Cannula 04/10 0000 90 Nasal Cannula 04/09 2300 97.9 87 30 150/80 92 Nasal Cannula 04/09 1600 97 Nasal 70% Cannula 04/09 1600 98.7 83 22 138/72 97 Nasal 70% Cannula 04/09 0948 102 145/72 04/09 0948 87 145/72 Intake & Output 04/10 1600 04/10 0800 04/10 0000 Intake Total 520 700 Output Total 400 350 Balance 120 350 Intake, IV 400 220 Intake, Oral 120 480 Number 1 Bowel Movements Output, Stool 0 Output, Urine 400 350 Laboratory Tests 04/10 04/09 04/09 04/08 0700 0933 0430 2100 Chemistry Sodium (137 - 145 mmol/L) Pending 146 H Potassium (3.5 - 5.1 mmol/L) Pending 3.9 Chloride (98 - 107 mmol/L) Pending 105 Carbon Dioxide (22 - 30 mmol/L) Pending 31 H Anion Gap (5 - 16) Pending 10 BUN (9 - 20 mg/dL) Pending 57 H Creatinine (0.7 - 1.2 mg/dL) Pending 1.6 H Estimated GFR (>60 ml/min) 43 L Glucose (65 - 99 mg/dL) Pending 73 Calcium (8.4 - 10.2 mg/dL) Pending 8.5 Phosphorus (2.5 - 4.5 mg/dL) Pending 3.3 Magnesium (1.6 - 2.3 mg/dL) Pending 2.6 H Total Bilirubin (0.2 - 1.3 mg/dL) Pending 0.6 AST (17 - 59 U/L) Pending 31 ALT (21 - 72 U/L) Pending 39 Albumin (3.5 - 5.0 g/dL) Pending 2.9 L Hematology CBC w Diff Pending NO MAN DIFF REQ NO MAN DIFF REQ WBC (4.8 - 10.8 /CUMM) Pending 10.0 9.4 RBC (4.70 - 6.10 /CUMM) Pending 2.64 L 2.49 L Hgb (14.0 - 18.0 G/DL) Pending 8.3 L 7.7 L Hct (42 - 52 %) Pending 24.3 L 22.9 L MCV (80.0 - 94.0 FL) Pending 92.0 92.1 MCH (27.0 - 31.0 PG) Pending 31.2 H 30.8 MCHC (33.0 - 37.0 G/DL) Pending 33.9 33.4 RDW (11.5 - 14.5 %) Pending 13.6 14.1 Plt Count (130 - 400 /CUMM) Pending 398 375 MPV (7.4 - 10.4 FL) Pending 8.1 8.6 Gran % (42.2 - 75.2 %) Pending 77.0 H 75.1 Lymphocytes % (20.5 - 51.1 %) Pending 14.2 L 15.6 L Monocytes % (1.7 - 9.3 %) Pending 3.8 4.7 Eosinophils % (0 - 5 %) Pending 4.3 4.0 Basophils % (0.0 - 2.0 %) Pending 0.7 0.6 Absolute Granulocytes (1.4 - 6.5 /CUMM) Pending 7.7 H 7.1 H Absolute Lymphocytes (1.2 - 3.4 /CUMM) Pending 1.4 1.5 Absolute Monocytes (0.10 - 0.60 /CUMM) Pending 0.4 0.4 Absolute Eosinophils (0.0 - 0.7 /CUMM) Pending 0.4 0.4 Absolute Basophils (0.0 - 0.2 /CUMM) Pending 0.1 0.1 Toxicology Random Vancomycin Cancelled 04/08 1148 Toxicology Random Vancomycin (ug/ml) 10.6 Impression/Plan Impression/Plan Impression/Plan: On high flow with waxing and waning of mental status Lungs rhonchi and scattered crackles on the right, much improved from yesterday Heart regular rhythm with no murmur Abdomen is soft, nontender with positive bowel sounds Extremities necrotic right second and third toes; left foot petechial/ purpuric rash Land catheter is in place IMPRESSION This is a gentleman with diabetes type 1 with multiple complications including neuropathy, significant peripheral vascular disease, previous pacemaker far heart block, previous history of MRSA osteomyelitis with previous foot surgery in the left side with femoral angioplasty, worsening performance status, previous normal pulmonary function tests, multiple organ dysfunction, now has a following issues * Acute on chronic hypoxemic respiratory failure now on nasal cannula related to combination of factors which include congestive heart failure both systolic and diastolic failure with bilateral probable aspiration pneumonitis now on broad- spectrum antibiotics. * Acute lung injury probably related to aspiration pneumonitis * Significant peripheral vascular disease with gangrene and probable osteomyelitis of his left foot. Infectious disease, podiatry and vascular surgery is following the patient * Type 1 diabetes with multiple organ dysfunction including diabetic nephropathy , neuropathy, peripheral vascular disease and retinopathy. * CKD with renal insufficiency since admission most likely related to combination of factors including his underlying diabetic kidney disease. As he recently did have an angiogram he may have had athero-embolism * Reduced ejection fraction with EF of 45-50% with abnormal diastolic dysfunction which appears to be chronic * Severe peripheral vascular disease with dry gangrene of the left foot with probable osteomyelitis as well, needs surg Recommendation Discussed with family yesterday and per pts wishes they wish the patient not to go through any more invasive procedures, and they wish him to continue current care, with no institution of NIV, dialysis, pressors etc and if worse they wish him to be made comfort care Transfer to the floor Continue antibiotics per ID Cont to monitor glucose Keep his head of bed elevated Continue low-dose morphine, only if needed
--- NOTE | 2017-04-10 09:49 | PN- Diabetes ---
Assessment/Plan Diabetes Assessment: 70 y/o male, Hx of DM type 1 diagnosed when he was 14 years old. He was on an insulin pump with basal rate running at 0.9 units per hour in the past. His diabetes was complicated by neuropathy, retinopathy, nephropathy. Patient presented to the ED after sustaining an unwitnessed fall. He was admitted for positive troponin with peak troponin of 6.64, ongoing right foot infection and gangrene of 2nd toe and 3rd toe. He was transfered to ICU for SOB. He is now on BIPAP intermittently. Surgery was cancelled. His po intake has been poor and he has been confused. He is on D5W at 50 ml/ hour. Currently he is on Levemir 6 units twice a day, Novolog coverage every 4 hours. His FSGs were 164, 205, 195 and 206. Plan: 1. increase Levemir to 7 units twice a day; 2. continue the currenr Novolog coverage every 4 hours; 3. sodium remains 146; I will recommend increasing D5W to 75 ml/hour; 4. monitor FSGs and electrolytes; will follow. Subjective Subjective: He is confused. Objective Last 24 Hrs of Vital Signs/I&O Vital Signs Date Time Temp Pulse Resp B/P B/P Pulse O2 O2 Flow FiO2 Mean Ox Delivery Rate 04/10 0917 84 150/80 04/10 0916 84 150/80 04/10 0305 88 Nasal 95% Cannula 04/10 0000 90 Nasal Cannula 04/09 2300 97.9 87 30 150/80 92 Nasal Cannula 04/09 1600 97 Nasal 70% Cannula 04/09 1600 98.7 83 22 138/72 97 Nasal 70% Cannula Intake & Output 04/10 1600 04/10 0800 04/10 0000 Intake Total 520 700 Output Total 400 350 Balance 120 350 Intake, IV 400 220 Intake, Oral 120 480 Number 1 Bowel Movements Output, Stool 0 Output, Urine 400 350 Findings Pertinent Lab/[place] Results: Laboratory Tests 04/10 0700 Chemistry Sodium (137 - 145 mmol/L) 146 H Potassium (3.5 - 5.1 mmol/L) 4.1 Chloride (98 - 107 mmol/L) 104 Carbon Dioxide (22 - 30 mmol/L) 28 Anion Gap (5 - 16) 13 BUN (9 - 20 mg/dL) 49 H Creatinine (0.7 - 1.2 mg/dL) 1.2 Estimated GFR (>60 ml/min) > 60 Glucose (65 - 99 mg/dL) 163 H Calcium (8.4 - 10.2 mg/dL) 8.5 Phosphorus (2.5 - 4.5 mg/dL) 3.3 Magnesium (1.6 - 2.3 mg/dL) 2.6 H Total Bilirubin (0.2 - 1.3 mg/dL) 0.6 AST (17 - 59 U/L) 29 ALT (21 - 72 U/L) 34 Albumin (3.5 - 5.0 g/dL) 2.9 L Hematology CBC w Diff NO MAN DIFF REQ WBC (4.8 - 10.8 /CUMM) 11.2 H RBC (4.70 - 6.10 /CUMM) 2.92 L Hgb (14.0 - 18.0 G/DL) 8.9 L Hct (42 - 52 %) 26.8 L MCV (80.0 - 94.0 FL) 91.8 MCH (27.0 - 31.0 PG) 30.5 MCHC (33.0 - 37.0 G/DL) 33.2 RDW (11.5 - 14.5 %) 13.7 Plt Count (130 - 400 /CUMM) 432 H MPV (7.4 - 10.4 FL) 8.4 Gran % (42.2 - 75.2 %) 92.0 H Lymphocytes % (20.5 - 51.1 %) 5.8 L Monocytes % (1.7 - 9.3 %) 2.0 Eosinophils % (0 - 5 %) 0.1 Basophils % (0.0 - 2.0 %) 0.1 Absolute Granulocytes (1.4 - 6.5 /CUMM) 10.3 H Absolute Lymphocytes (1.2 - 3.4 /CUMM) 0.7 L Absolute Monocytes (0.10 - 0.60 /CUMM) 0.2 Absolute Eosinophils (0.0 - 0.7 /CUMM) 0 Absolute Basophils (0.0 - 0.2 /CUMM) 0
--- NOTE | 2017-04-10 10:11 | PN- Cardiology ---
Subjective Subjective: The patient is still short of breath. His chest x-ray looked worse yesterday. He has not gotten diuretics for 2 days. The family is is moving towards comfort measures but he is still just DNR/DNI. His renal function is a little better today. His blood pressure is maintained. Objective Vital Signs and I&Os Vital Signs Date Time Temp Pulse Resp B/P B/P Pulse O2 O2 Flow FiO2 Mean Ox Delivery Rate 04/10 916 84 150/80 04/10 09 84 150/80 04/10 0305 88 Nasal 95% Cannula 04/10 0000 90 Nasal Cannula 04/09 2300 97.9 87 30 150/80 92 Nasal Cannula 04/09 1600 97 Nasal 70% Cannula 04/09 1600 98.7 83 22 138/72 97 Nasal 70% Cannula Intake & Output 04/10 1600 04/10 0800 04/10 0000 04/09 1600 04/09 0800 04/09 0000 Intake Total 520 700 450 240 Output Total 400 350 500 300 Balance 120 350 -50 -60 Intake, IV 400 220 210 Intake, Oral 120 480 240 240 Number 1 0 Bowel Movements Output, Stool 0 Output, Urine 400 350 500 300 Physical Exam: He is alert and cooperative but somewhat agitated HEENT exam normal Chest diffuse rhonchi and coarse rales Heart regular rhythm no murmurs No edema left, right foot bandaged. Current Medications: Current Medications Sig/Coral Start time Last Medication Dose Route Stop Time Status Admin Acetaminophen 500 MG TID 04/03 1156 AC 04/10 PO 0916 Amlodipine Besylate 5 MG DAILY 04/03 1200 AC 04/10 PO 0917 Aspirin 81 MG DAILY 04/04 1000 AC 04/10 PO 0916 Atorvastatin Calcium 40 MG 1700 04/03 1700 AC 04/09 PO 1556 Ceftazidime 1,000 MG 0600,1800 04/06 0600 AC 04/10 IV 0520 Dextrose/Water 1,000 ML .Q20H 04/09 0815 AC 04/10 IV 0251 Fluticasone 2 SPRAY DAILY 04/03 1155 AC 04/10 Propionate THOMAS 0951 Heparin Sodium 5,000 UNIT Q8 04/03 1400 AC 04/10 (Porcine) SC 0520 Insulin Aspart 0 Q4 04/08 1000 AC 04/10 SC 0520 Insulin Detemir 7 UNITS BID 04/10 1000 AC 04/10 SC 0951 Insulin Detemir 6 UNITS BID 04/09 1000 DC 04/09 NM 2058 Metoprolol Succinate 25 MG DAILY 04/03 1714 AC 04/10 PO 0916 Morphine Sulfate 2 MG Q4P PRN 04/04 1845 04/10 IV 0521 Pantoprazole Sodium 40 MG DAILY 04/06 1345 AC 04/10 IV 0916 Pregabalin 50 MG TID 04/03 1155 04/10 PO 0916 Results Last 48 Hrs of Labs/Mics: Laboratory Tests 04/10/17 0700: Anion Gap 13, Estimated GFR > 60, Glucose 163 H, Calcium 8.5, Phosphorus 3.3, Magnesium 2.6 H, Total Bilirubin 0.6, AST 29, ALT 34, Albumin 2.9 L, CBC w Diff NO MAN DIFF REQ, RBC 2.92 L, MCV 91.8, MCH 30.5, MCHC 33.2, RDW 13.7, MPV 8.4, Gran % 92.0 H, Lymphocytes % 5.8 L, Monocytes % 2.0, Eosinophils % 0.1, Basophils % 0.1, Absolute Granulocytes 10.3 H, Absolute Lymphocytes 0.7 L, Absolute Monocytes 0.2, Absolute Eosinophils 0, Absolute Basophils 0 04/09/17 0933: Random Vancomycin Cancelled 04/09/17 0430: Anion Gap 10, Estimated GFR 43 L, Glucose 73, Calcium 8.5, Phosphorus 3.3, Magnesium 2.6 H, Total Bilirubin 0.6, AST 31, ALT 39, Albumin 2.9 L, CBC w Diff NO MAN DIFF REQ, RBC 2.64 L, MCV 92.0, MCH 31.2 H, MCHC 33.9, RDW 13.6, MPV 8.1, Gran % 77.0 H, Lymphocytes % 14.2 L, Monocytes % 3.8, Eosinophils % 4.3, Basophils % 0.7, Absolute Granulocytes 7.7 H, Absolute Lymphocytes 1.4, Absolute Monocytes 0.4, Absolute Eosinophils 0.4, Absolute Basophils 0.1 04/08/17 2100: CBC w Diff NO MAN DIFF REQ, RBC 2.49 L, MCV 92.1, MCH 30.8, MCHC 33.4, RDW 14.1 , MPV 8.6, Gran % 75.1, Lymphocytes % 15.6 L, Monocytes % 4.7, Eosinophils % 4.0, Basophils % 0.6, Absolute Granulocytes 7.1 H, Absolute Lymphocytes 1.5, Absolute Monocytes 0.4, Absolute Eosinophils 0.4, Absolute Basophils 0.1 04/08/17 1148: Random Vancomycin 10.6 Recent Imaging Studies: PATIENT: JIM WASSERMAN PRESENT AGE: 71 PATIENT ACCOUNT NO: [id number] : 47 LOCATION: [facility] ORDERING PHYSICIAN: Rosa Gay MD SERVICE DATE: 04/09/17- EXAM TYPE: RAD - XRY-PORTABLE CHEST XRAY EXAMINATION: XR PORTABLE CHEST CLINICAL INFORMATION: Tachypnea. Pneumonia. COMPARISON: 04/07/2017 and 04/08/2017 TECHNIQUE: Portable frontal view of the chest was obtained. FINDINGS: There is a right prepectoral cardiac pacemaker with transvenous leads extending to the right atrium and right ventricle. Cardiac silhouette is mildly enlarged. Pulmonary vessels appear congested and indistinct. Again noted is patchy airspace opacity in both lungs. The airspace opacity appears increased in the left upper lobe compared to 04/08/2017, but not significantly changed compared to 04/07/2017. Subpleural septal thickening in lower lung zones is compatible with interstitial edema. Probable trace bilateral pleural effusions. No pneumothorax or other acute interval change. IMPRESSION: Persistent multilobar pneumonia and/or pulmonary edema. The airspace opacity in the left upper lobe is worse compared to 04/08/2017. DICTATED BY: Mario Alberto Wellington MD DATE/TIME DICTATED:04/09/171127 [employer]:INES DATE/TIME TRANSCRIBED:04/09/171127 CONFIDENTIAL, DO NOT COPY WITHOUT APPROPRIATE AUTHORIZATION. <Electronically signed in Other Vendor System> SIGNED BY: Mario Alberto Wellington MD 04/09/17 3233 Assessment/Plan Assessment/Plan The patient is not improving. His respiratory status is worse. This may be mostly pulmonary edema. I recommend restarting him on twice a day IV Lasix. The family may be refusing surgery and moving towards comfort measures but they are not there yet. We will try and improve his respiratory status for now. Continue telemetry? Yes
--- NOTE | 2017-04-10 11:25 | PN- Infect Dx ---
Subjective Subjective: Afebrile. He complains of shortness of breath. Objective Last 24 Hrs of Vital Signs/I&O Vital Signs Date Time Temp Pulse Resp B/P B/P Pulse O2 O2 Flow FiO2 Mean Ox Delivery Rate 04/10 916 84 150/80 04/10 0916 84 150/80 04/10 0800 96 Nasal 95% Cannula 04/10 08 97.5 84 26 150/80 96 Nasal 95% Cannula 04/10 0305 88 Nasal 95% Cannula 04/10 0000 90 Nasal Cannula 04/09 2300 97.9 87 30 150/80 92 Nasal Cannula 04/09 1600 97 Nasal 70% Cannula 04/09 1600 98.7 83 22 138/72 97 Nasal 70% Cannula Intake & Output 04/10 1600 04/10 0800 04/10 0000 Intake Total 154 520 700 Output Total 400 350 Balance 154 120 350 Intake, IV 34 400 220 Intake, Oral 120 120 480 Number 1 Bowel Movements Output, Stool 0 Output, Urine 400 350 Physical Exam Other Physical Findings: He is awake and alert in mild respiratory distress on high flow oxygen Lungs scattered rhonchi bilaterally Heart regular rhythm with no murmur Extremities right foot dressing intact Land catheter remains in place Results Last 24 Hours of Lab Results: Laboratory Tests 04/10 0700 Chemistry Sodium (137 - 145 mmol/L) 146 H Potassium (3.5 - 5.1 mmol/L) 4.1 Chloride (98 - 107 mmol/L) 104 Carbon Dioxide (22 - 30 mmol/L) 28 Anion Gap (5 - 16) 13 BUN (9 - 20 mg/dL) 49 H Creatinine (0.7 - 1.2 mg/dL) 1.2 Estimated GFR (>60 ml/min) > 60 Glucose (65 - 99 mg/dL) 163 H Calcium (8.4 - 10.2 mg/dL) 8.5 Phosphorus (2.5 - 4.5 mg/dL) 3.3 Magnesium (1.6 - 2.3 mg/dL) 2.6 H Total Bilirubin (0.2 - 1.3 mg/dL) 0.6 AST (17 - 59 U/L) 29 ALT (21 - 72 U/L) 34 Albumin (3.5 - 5.0 g/dL) 2.9 L Hematology CBC w Diff NO MAN DIFF REQ WBC (4.8 - 10.8 /CUMM) 11.2 H RBC (4.70 - 6.10 /CUMM) 2.92 L Hgb (14.0 - 18.0 G/DL) 8.9 L Hct (42 - 52 %) 26.8 L MCV (80.0 - 94.0 FL) 91.8 MCH (27.0 - 31.0 PG) 30.5 MCHC (33.0 - 37.0 G/DL) 33.2 RDW (11.5 - 14.5 %) 13.7 Plt Count (130 - 400 /CUMM) 432 H MPV (7.4 - 10.4 FL) 8.4 Gran % (42.2 - 75.2 %) 92.0 H Lymphocytes % (20.5 - 51.1 %) 5.8 L Monocytes % (1.7 - 9.3 %) 2.0 Eosinophils % (0 - 5 %) 0.1 Basophils % (0.0 - 2.0 %) 0.1 Absolute Granulocytes (1.4 - 6.5 /CUMM) 10.3 H Absolute Lymphocytes (1.2 - 3.4 /CUMM) 0.7 L Absolute Monocytes (0.10 - 0.60 /CUMM) 0.2 Absolute Eosinophils (0.0 - 0.7 /CUMM) 0 Absolute Basophils (0.0 - 0.2 /CUMM) 0 Last 24 Hours of [place] Results: No new cultures Recent Imaging Studies: Chest x-ray April 09 reveals increased perihilar opacities Assessment/Plan ID Impression: Condition poor, with family deciding against any aggressive measures and leaning towards comfort care. He remains afebrile with white blood cell count minimally elevated on Ceftazidime now Day 6 of Ceftazidime for possible aspiration pneumonia, with Vancomycin discontinued yesterday after the family decided against any further surgical intervention on the right foot. His respiratory status remains poor, likely secondary to fluid overload given his recent chest x -ray findings. Suggestion: 1. Remove Land catheter 2. Discontinue Ceftazidime and follow off antibiotics
[2017-04-10 16:00] VITALS: BP 130/60
[2017-04-11 05:43] LABS: ABSOLUTE BASOPHIL COUNT 0 /CUMM (0.0-0.2); ABSOLUTE EOSINOPHIL COUNT 0 /CUMM (0.0-0.7); ABSOLUTE GRANULOCYTE CT 9.1 /CUMM (1.4-6.5); ABSOLUTE LYMPH COUNT 0.8 /CUMM (1.2-3.4); ABSOLUTE MONOCYTE COUNT 0.4 /CUMM (0.10-0.60); BASOPHIL % 0.3 % (0.0-2.0); EOSINOPHIL % 0.1 % (0-5); GRANULOCYTE % 88.3 % (42.2-75.2); HEMATOCRIT 27.1 % (42-52); MEAN CORPUSCULAR HGB 29.9 PG (27.0-31.0); MEAN CORPUSCULAR HGB CONC 32.2 G/DL (33.0-37.0); MEAN CORPUSCULAR VOLUME 92.8 FL (80.0-94.0); MEAN PLATELET VOLUME 8.3 FL (7.4-10.4); PLATELET COUNT 441 /CUMM (130-400); RBC DISTRIBUTION WIDTH 13.7 % (11.5-14.5); RED BLOOD CELL CT 2.93 /CUMM (4.70-6.10); WHITE BLOOD CELL COUNT 10.3 /CUMM (4.8-10.8)
[2017-04-11 06:00] VITALS: BP 126/78
[2017-04-11 08:00] VITALS: BP 130/72
--- NOTE | 2017-04-11 08:21 | PN- Resident CRCU ---
Impression/Plan Plan DVT/Prophylaxis: pharmacological
--- NOTE | 2017-04-11 10:04 | PN- Diabetes ---
Assessment/Plan Diabetes Assessment: This 71-year-old male has a known history of type 1 diabetes with severe complications including neuropathy. He now has gangrene of his right foot. He has been in congestive heart failure and episodic atrial fibrillation. The patient is confused at times. The family has decided they wish him to be made more comfort measures. He is faced with a below the knee amputation of the right lower leg. He is high risk for surgery and he may not be able to come off the respirator after the surgery. At the present time the patient is on D5W at 50 cc an hour. He is on every 4 hours NovoLog. His serum sodium has improved. Is also on Levemir 7 units twice a day. The patient is coherent today. When asked about whether he wants the surgery he states he wants to take a shot at it. Plan: Suggest continue the present insulin. In discussions this morning the patient stated he wished to consider the surgery on his right lower leg. I will discuss this further with the family. Subjective Subjective: Has poor appetite Review of Systems Constitutional: Denies: chills, fever. Cardiovascular: Denies: chest pain. Respiratory: Reports: short of breath. Gastrointestinal: Denies: abdominal pain. Objective Last 24 Hrs of Vital Signs/I&O Vital Signs Date Time Temp Pulse Resp B/P B/P Pulse O2 O2 Flow FiO2 Mean Ox Delivery Rate 04/11 08 Nasal 95% Cannula 04/11 08 97.6 70 22 130/72 100 Nasal 95% Cannula 04/11 0600 97.2 74 22 126/78 98 Nasal 95% Cannula 04/11 0142 94 Nasal 95% Cannula 04/11 0000 98 Nasal 95% Cannula 04/10 2238 93 Nasal 95% Cannula 04/10 2000 90 Nasal 95% Cannula 04/10 1950 92 Nasal 95% Cannula 04/10 1723 92 Nasal 95% Cannula 04/10 1600 97.0 78 18 130/60 96 04/10 1600 96 Intake & Output 04/11 1600 04/11 0800 04/11 0000 Intake Total 300 838 Output Total 0 Balance 300 838 Intake, IV 300 598 Intake, Oral 240 Number 0 Bowel Movements Output, Urine 0 Vital Signs Date Time Temp Pulse Resp B/P B/P Pulse O2 O2 Flow FiO2 Mean Ox Delivery Rate 04/11 0800 Nasal 95% Cannula 04/11 0800 97.6 70 22 130/72 100 Nasal 95% Cannula 04/11 0600 97.2 74 22 126/78 98 Nasal 95% Cannula 04/11 0142 94 Nasal 95% Cannula 04/11 0000 98 Nasal 95% Cannula 04/10 2238 93 Nasal 95% Cannula 04/10 2000 90 Nasal 95% Cannula 04/10 1950 92 Nasal 95% Cannula 04/10 1723 92 Nasal 95% Cannula 04/10 1600 97.0 78 18 130/60 96 04/10 1600 96 Intake & Output 04/11 1600 04/11 0800 04/11 0000 Intake Total 300 838 Output Total 0 Balance 300 838 Intake, IV 300 598 Intake, Oral 240 Number 0 Bowel Movements Output, Urine 0 Physical Exam General Appearance: alert, awake, comfortable Respiratory: normal breath sounds Cardiovascular: regular rate/rhythm Abdomen: normal bowel sounds Extremities: right lower leg bandaged Current Medications: Current Medications Sig/Coral Start time Last Medication Dose Route Stop Time Status Admin Acetaminophen 500 MG TID 04/03 1156 AC 04/10 PO 205 Amlodipine Besylate 5 MG DAILY 04/03 1200 AC 04/10 PO 0917 Aspirin 81 MG DAILY 04/04 1000 AC 04/10 PO 0916 Atorvastatin Calcium 40 MG 1700 04/03 1700 DC 04/09 PO 1556 Ceftazidime 1,000 MG 0600,1800 04/06 0600 DC 04/10 IV 0520 Dextrose/Water 1,000 ML .Q20H 04/09 0815 AC 04/10 IV 2040 Fluticasone 2 SPRAY DAILY 04/03 1155 AC 04/10 Propionate THOMAS 0951 Furosemide 40 MG ONCE ONE 04/10 1030 DC 04/10 IV 04/10 1031 1037 Heparin Sodium 5,000 UNIT Q8 04/03 1400 AC 04/11 (Porcine) SC 0609 Insulin Aspart 0 Q4 04/08 1000 AC 04/11 SC 0609 Insulin Detemir 7 UNITS BID 04/10 1000 AC 04/10 SC 2100 Metoprolol Succinate 25 MG DAILY 04/03 1714 AC 04/10 PO 0916 Morphine Sulfate 2 MG Q4P PRN 04/04 1845 AC 04/11 IV 0454 Omeprazole 40 MG DAILY AC 04/11 0700 AC PO Pantoprazole Sodium 40 MG DAILY 04/06 1345 DC 04/10 IV 0916 Pregabalin 50 MG TID 04/03 1155 AC 04/10 PO 205 Findings Pertinent Lab/[place] Results: Laboratory Tests 04/11 0530 Chemistry Sodium (137 - 145 mmol/L) 145 Potassium (3.5 - 5.1 mmol/L) 4.4 Chloride (98 - 107 mmol/L) 105 Carbon Dioxide (22 - 30 mmol/L) 30 Anion Gap (5 - 16) 10 BUN (9 - 20 mg/dL) 48 H Creatinine (0.7 - 1.2 mg/dL) 1.3 H Estimated GFR (>60 ml/min) 55 L Glucose (65 - 99 mg/dL) 149 H Calcium (8.4 - 10.2 mg/dL) 8.5 Phosphorus (2.5 - 4.5 mg/dL) 4.1 Magnesium (1.6 - 2.3 mg/dL) 2.6 H Total Bilirubin (0.2 - 1.3 mg/dL) 0.6 AST (17 - 59 U/L) 26 ALT (21 - 72 U/L) 38 Albumin (3.5 - 5.0 g/dL) 3.1 L Hematology CBC w Diff NO MAN DIFF REQ WBC (4.8 - 10.8 /CUMM) 10.3 RBC (4.70 - 6.10 /CUMM) 2.93 L Hgb (14.0 - 18.0 G/DL) 8.7 L Hct (42 - 52 %) 27.1 L MCV (80.0 - 94.0 FL) 92.8 MCH (27.0 - 31.0 PG) 29.9 MCHC (33.0 - 37.0 G/DL) 32.2 L RDW (11.5 - 14.5 %) 13.7 Plt Count (130 - 400 /CUMM) 441 H MPV (7.4 - 10.4 FL) 8.3 Gran % (42.2 - 75.2 %) 88.3 H Lymphocytes % (20.5 - 51.1 %) 7.6 L Monocytes % (1.7 - 9.3 %) 3.7 Eosinophils % (0 - 5 %) 0.1 Basophils % (0.0 - 2.0 %) 0.3 Absolute Granulocytes (1.4 - 6.5 /CUMM) 9.1 H Absolute Lymphocytes (1.2 - 3.4 /CUMM) 0.8 L Absolute Monocytes (0.10 - 0.60 /CUMM) 0.4 Absolute Eosinophils (0.0 - 0.7 /CUMM) 0 Absolute Basophils (0.0 - 0.2 /CUMM) 0
--- NOTE | 2017-04-11 10:34 | PN- Housestaff ---
Subjective Follow-up For: Acute On chronic hypoxemic respiratory failure. Significant peripheral vascular disease. Type 1 diabetes. Subjective: Mr Alexa was seen and examined this morning. Resting comfortably and had no issues overnight. Currently contemplating aggressive intervention regarding potential amputation. He is currently waiting for his son to come visit. Patient denies any fever, chills, nausea, vomiting. Has been tolerating by mouth intake well. Review of Systems Constitutional: Reports: see HPI. Objective Last 24 Hrs of Vital Signs/I&O Vital Signs Date Time Temp Pulse Resp B/P B/P Pulse O2 O2 Flow FiO2 Mean Ox Delivery Rate 04/11 1308 99 Nasal 90% Cannula 04/11 0951 84 140/50 04/11 0830 100 Nasal 95% Cannula 04/11 0800 Nasal 95% Cannula 04/11 0800 97.6 70 22 130/72 100 Nasal 95% Cannula 04/11 0600 97.2 74 22 126/78 98 Nasal 95% Cannula 04/11 0142 94 Nasal 95% Cannula 04/11 0000 98 Nasal 95% Cannula 04/10 2238 93 Nasal 95% Cannula 04/10 2000 90 Nasal 95% Cannula 04/10 1950 92 Nasal 95% Cannula 04/10 1723 92 Nasal 95% Cannula 04/10 1600 97.0 78 18 130/60 96 04/10 1600 96 Intake & Output 04/11 1600 04/11 0800 04/11 0000 Intake Total 420 300 838 Output Total 0 0 Balance 420 300 838 Intake, IV 300 300 598 Intake, Oral 120 240 Number 1 0 Bowel Movements Output, Urine 0 0 Physical Exam General Appearance: Alert, Oriented X3, Cooperative Cardiovascular: Regular Rate, Normal S1, Normal S2 Lungs: Clear to Auscultation Abdomen: Normal Bowel Sounds, Soft, No Tenderness Neurological: Normal Speech Extremities: No Clubbing, No Cyanosis, Right foot wrapped in bandage. Pitting edema Left Lower Extremity 2+ Vascular: Normal Pulses Current Medications: Current Medications Sig/Coral Start time Last Medication Dose Route Stop Time Status Admin Acetaminophen 500 MG TID 04/03 1156 AC 04/11 PO 0951 Amlodipine Besylate 5 MG DAILY 04/03 1200 AC 04/11 PO 0951 Aspirin 81 MG DAILY 04/04 1000 AC 04/11 PO 0951 Dextrose/Water 1,000 ML .Q20H 04/09 0815 AC 04/10 IV 2040 Fluticasone 2 SPRAY DAILY 04/03 1155 AC 04/11 Propionate THOMAS 0951 Heparin Sodium 5,000 UNIT Q8 04/03 1400 AC 04/11 (Porcine) SC 0609 Insulin Aspart 0 Q4 04/08 1000 AC 04/11 SC 1022 Insulin Detemir 7 UNITS BID 04/10 1000 AC 04/11 SC 0950 Metoprolol Succinate 25 MG DAILY 04/03 1714 AC 04/11 PO 0951 Morphine Sulfate 2 MG Q4P PRN 04/04 1845 AC 04/11 IV 0454 Omeprazole 40 MG DAILY AC 04/11 0700 AC PO Pregabalin 50 MG TID 04/03 1155 AC 04/11 PO 0951 Last 24 Hrs of Lab/[place] Results Last 24 Hrs of Labs/Mics: Laboratory Tests 04/11/17 0530: Anion Gap 10, Estimated GFR 55 L, Glucose 149 H, Calcium 8.5, Phosphorus 4.1, Magnesium 2.6 H, Total Bilirubin 0.6, AST 26, ALT 38, Albumin 3.1 L, CBC w Diff NO MAN DIFF REQ, RBC 2.93 L, MCV 92.8, MCH 29.9, MCHC 32.2 L, RDW 13.7, MPV 8.3, Gran % 88.3 H, Lymphocytes % 7.6 L, Monocytes % 3.7, Eosinophils % 0.1, Basophils % 0.3, Absolute Granulocytes 9.1 H, Absolute Lymphocytes 0.8 L, Absolute Monocytes 0.4, Absolute Eosinophils 0, Absolute Basophils 0 Assessment/Plan Assessment: Mr Liu is a 71-year-old gentleman with a past medical history of type I diabetes on insulin pump (complicated by neuropathy, retinopathy and nephropathy ), complete heart block status post pacemaker, PVD previous admission to [facility] 2 weeks prior to admission for 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 He was initially admitted on the telemetry service and then subseuquently transferred to the CRCU due to hypoxia and tachycardia. He is admitted in the CRCU and is currently a General Medicine Hold. The following is is problem list and Plan #Acute on chronic hypoxemic respiratory failure Continues to be on high flow oxygen. No aggressive interventions including pressors #History of Peripharel Vascular Disease. s/p MRSA OM; Right foot gangrene involving second and third toe. This morning, the patient may be considering amputation. His primary care physician Dr. Adame suggested that he will likely need a BKA instead of the TMA for a better prognostic outcome. Patient is currently thinking about whether to proceed for a procedure vs not. #Type II VT Over the course of the admission, Troponin peaked at 6.64 which was thought be likely due to type 2 VT. No EKG changes s/o VT. Component of volume overload, PRN diuresis while monitoring the serum creatinine closely. Echocardiogram showed HFrEF and high RVSP around 60mm of Hg. Dr Avery, high school art teacher on board, resuming Lasix 20 IV BID. Will monitor Cr in am, and further dosing changes if warranted. #Acute kidney injury; Appears to be improving. Sr Cr 1.8--> 1.3. Will continue to monitor. #Type 1 Diabetes. Endocrinology on board, appreciate recomendations. #Skin: Unstageable pressure ulcer noted on right upper buttocks which was present on admission. Continue wound care recommendations. Code: DNR/DNI Problem List: 1. Peripheral vascular disease 2. PARRIS (acute kidney injury) Pain Ratin Pain Location: No Pain endorsed during our clinical encounter Pain Goal: Remain pain free Pain Plan: Morphine Tomorrow's Labs & Rationales: BEP: Monitor Cr in the setting of CKD
--- NOTE | 2017-04-11 11:21 | PN- CRCU ---
Subjective HPI/Critical Care Issues: The patient is confused at times. At times he is confused The family has decided they wish him to be made more comfort measures. He is faced with a below the knee amputation of the right lower leg and he may not be able to come off the respirator after the surgery. Objective Current Medications: Current Medications Sig/Coral Start time Last Medication Dose Route Stop Time Status Admin Acetaminophen 500 MG TID 04/03 1156 AC 04/11 PO 0951 Amlodipine Besylate 5 MG DAILY 04/03 1200 AC 04/11 PO 0951 Aspirin 81 MG DAILY 04/04 1000 AC 04/11 PO 0951 Atorvastatin Calcium 40 MG 1700 04/03 1700 DC 04/09 PO 1556 Ceftazidime 1,000 MG 0600,1800 04/06 0600 DC 04/10 IV 0520 Dextrose/Water 1,000 ML .Q20H 04/09 0815 AC 04/10 IV 2040 Fluticasone 2 SPRAY DAILY 04/03 1155 AC 04/11 Propionate THOMAS 0951 Heparin Sodium 5,000 UNIT Q8 04/03 1400 AC 04/11 (Porcine) SC 0609 Insulin Aspart 0 Q4 04/08 1000 AC 04/11 SC 1022 Insulin Detemir 7 UNITS BID 04/10 1000 AC 04/11 SC 0950 Metoprolol Succinate 25 MG DAILY 04/03 1714 AC 04/11 PO 0951 Morphine Sulfate 2 MG Q4P PRN 04/04 1845 AC 04/11 IV 0454 Omeprazole 40 MG DAILY AC 04/11 0700 AC PO Pantoprazole Sodium 40 MG DAILY 04/06 1345 DC 04/10 IV 0916 Pregabalin 50 MG TID 04/03 1155 AC 04/11 PO 0951 Vital Signs & I&O Last 24 Hrs of Vitals and I&O: Vital Signs Date Time Temp Pulse Resp B/P B/P Pulse O2 O2 Flow FiO2 Mean Ox Delivery Rate 04/11 0951 84 140/50 04/11 0800 Nasal 95% Cannula 04/11 0800 97.6 70 22 130/72 100 Nasal 95% Cannula 04/11 0600 97.2 74 22 126/78 98 Nasal 95% Cannula 04/11 0142 94 Nasal 95% Cannula 04/11 0000 98 Nasal 95% Cannula 04/10 2238 93 Nasal 95% Cannula 04/10 2000 90 Nasal 95% Cannula 04/10 1950 92 Nasal 95% Cannula 04/10 1723 92 Nasal 95% Cannula 04/10 1600 97.0 78 18 130/60 96 04/10 1600 96 Intake & Output 04/11 1600 04/11 0800 04/11 0000 Intake Total 300 838 Output Total 0 Balance 300 838 Intake, IV 300 598 Intake, Oral 240 Number 1 0 Bowel Movements Output, Urine 0 Laboratory Tests 04/11 04/10 0530 0700 Chemistry Sodium (137 - 145 mmol/L) 145 146 H Potassium (3.5 - 5.1 mmol/L) 4.4 4.1 Chloride (98 - 107 mmol/L) 105 104 Carbon Dioxide (22 - 30 mmol/L) 30 28 Anion Gap (5 - 16) 10 13 BUN (9 - 20 mg/dL) 48 H 49 H Creatinine (0.7 - 1.2 mg/dL) 1.3 H 1.2 Estimated GFR (>60 ml/min) 55 L > 60 Glucose (65 - 99 mg/dL) 149 H 163 H Calcium (8.4 - 10.2 mg/dL) 8.5 8.5 Phosphorus (2.5 - 4.5 mg/dL) 4.1 3.3 Magnesium (1.6 - 2.3 mg/dL) 2.6 H 2.6 H Total Bilirubin (0.2 - 1.3 mg/dL) 0.6 0.6 AST (17 - 59 U/L) 26 29 ALT (21 - 72 U/L) 38 34 Albumin (3.5 - 5.0 g/dL) 3.1 L 2.9 L Hematology CBC w Diff NO MAN DIFF REQ NO MAN DIFF REQ WBC (4.8 - 10.8 /CUMM) 10.3 11.2 H RBC (4.70 - 6.10 /CUMM) 2.93 L 2.92 L Hgb (14.0 - 18.0 G/DL) 8.7 L 8.9 L Hct (42 - 52 %) 27.1 L 26.8 L MCV (80.0 - 94.0 FL) 92.8 91.8 MCH (27.0 - 31.0 PG) 29.9 30.5 MCHC (33.0 - 37.0 G/DL) 32.2 L 33.2 RDW (11.5 - 14.5 %) 13.7 13.7 Plt Count (130 - 400 /CUMM) 441 H 432 H MPV (7.4 - 10.4 FL) 8.3 8.4 Gran % (42.2 - 75.2 %) 88.3 H 92.0 H Lymphocytes % (20.5 - 51.1 %) 7.6 L 5.8 L Monocytes % (1.7 - 9.3 %) 3.7 2.0 Eosinophils % (0 - 5 %) 0.1 0.1 Basophils % (0.0 - 2.0 %) 0.3 0.1 Absolute Granulocytes (1.4 - 6.5 /CUMM) 9.1 H 10.3 H Absolute Lymphocytes (1.2 - 3.4 /CUMM) 0.8 L 0.7 L Absolute Monocytes (0.10 - 0.60 /CUMM) 0.4 0.2 Absolute Eosinophils (0.0 - 0.7 /CUMM) 0 0 Absolute Basophils (0.0 - 0.2 /CUMM) 0 0 Impression/Plan Impression/Plan Impression/Plan: On high flow with waxing and waning of mental status Lungs rhonchi and scattered crackles on the right, much improved from yesterday Heart regular rhythm with no murmur Abdomen is soft, nontender with positive bowel sounds Extremities necrotic right second and third toes; left foot petechial/ purpuric rash Land catheter is in place IMPRESSION This is a gentleman with diabetes type 1 with multiple complications including neuropathy, significant peripheral vascular disease, previous pacemaker far heart block, previous history of MRSA osteomyelitis with previous foot surgery in the left side with femoral angioplasty, worsening performance status, previous normal pulmonary function tests, multiple organ dysfunction, now has a following issues * Acute on chronic hypoxemic respiratory failure related to combination of factors which include congestive heart failure both systolic and diastolic failure with bilateral probable aspiration pneumonitis was on broad-spectrum antibiotics. Now off abx per ID * Acute lung injury probably related to aspiration pneumonitis * Significant peripheral vascular disease with gangrene and probable osteomyelitis of his left foot. Infectious disease, podiatry and vascular surgery is following the patient * Type 1 diabetes with multiple organ dysfunction including diabetic nephropathy , neuropathy, peripheral vascular disease and retinopathy. * CKD with renal insufficiency since admission most likely related to combination of factors including his underlying diabetic kidney disease. As he recently did have an angiogram he may have had athero-embolism * Reduced ejection fraction with EF of 45-50% with abnormal diastolic dysfunction which appears to be chronic * Severe peripheral vascular disease with dry gangrene of the left foot with probable osteomyelitis as well, needs surg Recommendation Cont present care Dr Adame to discuss with the family further Discussed with family before and per pts wishes they wish the patient not to go through any more invasive procedures, and they wish him to continue current care , with no institution of NIV, dialysis, pressors etc and if worse they wish him to be made comfort care Cont to monitor glucose Keep his head of bed elevated Continue low-dose morphine, only if needed
[2017-04-11 13:00] VITALS: BP 110/64
[2017-04-12 06:57] VITALS: BP 138/72
[2017-04-12 08:32] LABS: ABSOLUTE BASOPHIL COUNT 0.1 /CUMM (0.0-0.2); ABSOLUTE EOSINOPHIL COUNT 0.8 /CUMM (0.0-0.7); ABSOLUTE GRANULOCYTE CT 8.4 /CUMM (1.4-6.5); ABSOLUTE LYMPH COUNT 0.9 /CUMM (1.2-3.4); ABSOLUTE MONOCYTE COUNT 0.5 /CUMM (0.10-0.60); BASOPHIL % 0.5 % (0.0-2.0); EOSINOPHIL % 7.3 % (0-5); GRANULOCYTE % 78.8 % (42.2-75.2); HEMATOCRIT 27.4 % (42-52); MEAN CORPUSCULAR HGB 30.6 PG (27.0-31.0); MEAN CORPUSCULAR VOLUME 92.9 FL (80.0-94.0); MEAN PLATELET VOLUME 8.2 FL (7.4-10.4); PLATELET COUNT 436 /CUMM (130-400); RBC DISTRIBUTION WIDTH 14.3 % (11.5-14.5); RED BLOOD CELL CT 2.95 /CUMM (4.70-6.10); WHITE BLOOD CELL COUNT 10.6 /CUMM (4.8-10.8)
--- NOTE | 2017-04-12 09:26 | PN- Housestaff ---
Samira Avila MD,[facility] 04/12/17 0925: Subjective Follow-up For: Acute On chronic hypoxemic respiratory failure. Significant peripheral vascular disease. Type 1 diabetes. Subjective: Patient visited today, was lying in bed comfortably in no acute distress, was alert and oriented. Son, IS POA and present at the bedside. No fever or chills, no shortness of breathing, no chest pain, no other events. Patient follows with Dr. Adame, for the last 30 years, according to Estuardo Adame MD patient is alert and oriented currently has capacity to make decision. Patient was requesting to restart treatment and proceed with below-knee amputation. Son who is the POA is asking comfort measure. Had conversation with attending. Psych consulted who had conversation with Dr Degroot, informed primary team need to make desicion. Family will disscus and come back to us with decision. Review of Systems Constitutional: Reports: see HPI. Objective Last 24 Hrs of Vital Signs/I&O Vital Signs Date Time Temp Pulse Resp B/P B/P Pulse O2 O2 Flow FiO2 Mean Ox Delivery Rate 04/12 1150 93 Nasal 85% Cannula 04/12 1004 68 122/68 04/12 1002 68 122/68 04/12 0657 97.1 70 20 138/72 99 04/12 0127 99 Nasal 90% Cannula 04/12 0000 Nasal 45% Cannula 04/11 1600 98 Nasal 90% Cannula 04/11 1308 99 Nasal 90% Cannula Intake & Output 04/12 1600 04/12 0800 04/12 0000 Intake Total 400 Output Total 0 375 Balance 400 -375 Intake, IV 400 Number 1 Bowel Movements Output, Urine 0 375 Physical Exam General Appearance: Alert, Oriented X3, Cooperative, No Acute Distress Skin Temp/Moisture Exam: Warm/Dry Sepsis Skin Exam (color): Normal for Ethnicity HEENT: Atraumatic, EOMI, Mucous Membr. moist/pink Cardiovascular: Normal S1, Normal S2 Lungs: Clear to Auscultation Abdomen: Soft, No Tenderness Neurological: Normal Speech Extremities: right leg in dressing. motor sensory normal Current Medications: Current Medications Sig/Coral Start time Last Medication Dose Route Stop Time Status Admin Acetaminophen 500 MG TID 04/03 1156 AC 04/12 PO 1004 Amlodipine Besylate 5 MG DAILY 04/03 1200 AC 04/12 PO 1002 Aspirin 81 MG DAILY 04/04 1000 AC 04/12 PO 1002 Dextrose/Water 1,000 ML .Q20H 04/09 0815 AC 04/10 IV 2040 Fluticasone 2 SPRAY DAILY 04/03 1155 AC 04/12 Propionate THOMAS 1003 Furosemide 20 MG 7:30 AM, & 4:30 PM 04/11 1430 AC 04/12 IV 0800 Heparin Sodium 5,000 UNIT Q8 04/03 1400 AC 04/12 (Porcine) SC 0554 Insulin Aspart 0 Q4 04/08 1000 AC 04/11 SC 2231 Insulin Detemir 6 UNITS BID 04/12 1000 AC 04/12 SC 1003 Insulin Detemir 7 UNITS BID 04/10 1000 DC 04/11 SC 2230 Metoprolol Succinate 25 MG DAILY 04/03 1714 AC 04/12 PO 1004 Morphine Sulfate 2 MG Q4P PRN 04/04 1845 AC 04/11 IV 0454 Omeprazole 40 MG DAILY AC 04/11 0700 AC 04/12 PO 0800 Pregabalin 50 MG TID 04/03 1155 AC 04/12 PO 1004 Last 24 Hrs of Lab/Fransisco Results Last 24 Hrs of Labs/Mics: Laboratory Tests 04/12/17 0824: CBC w Diff NO MAN DIFF REQ, RBC 2.95 L, MCV 92.9, MCH 30.6, MCHC 33.0, RDW 14.3 , MPV 8.2, Gran % 78.8 H, Lymphocytes % 8.7 L, Monocytes % 4.7, Eosinophils % 7.3 H, Basophils % 0.5, Absolute Granulocytes 8.4 H, Absolute Lymphocytes 0.9 L, Absolute Monocytes 0.5, Absolute Eosinophils 0.8, Absolute Basophils 0.1 04/12/17 0632: Anion Gap 9, Estimated GFR > 60, BUN/Creatinine Ratio 39.2 H Assessment/Plan Assessment: Mr Liu is a 71-year-old gentleman with a past medical history of type I diabetes on insulin pump (complicated by neuropathy, retinopathy and nephropathy ), complete heart block status post pacemaker, PVD previous admission to [facility] 2 weeks prior to admission for 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 He was initially admitted on the telemetry service and then subseuquently transferred to the CRCU due to hypoxia and tachycardia. He is admitted in the CRCU and was then transferred to after disscussions of comfort measures. The following is is problem list and Plan #Acute on chronic hypoxemic respiratory failure Continues to be on high flow oxygen. No aggressive interventions including pressors #History of Peripharel Vascular Disease. s/p MRSA OM; Right foot gangrene involving second and third toe. This morning, the patient may be considering amputation. His primary care physician Dr. Adame suggested that he will likely need a BKA instead of the TMA for a better prognostic outcome. Patient is currently thinking about whether to proceed for a procedure vs not. - family to disscuss with patient and update us regarding desicion #Type II VT Over the course of the admission, Troponin peaked at 6.64 which was thought be likely due to type 2 VT. No EKG changes s/o VT. Component of volume overload, PRN diuresis while monitoring the serum creatinine closely. Echocardiogram showed HFrEF and high RVSP around 60mm of Hg. Dr Avery, generator mechanic on board, resuming Lasix 20 IV BID. Will monitor Cr in am, and further dosing changes if warranted. #Acute kidney injury; Appears to be improving. Sr Cr 1.8--> 1.2. Will continue to monitor. #Type 1 Diabetes. Endocrinology on board, appreciate recomendations. - updated insuline dose #Skin: Unstageable pressure ulcer noted on right upper buttocks which was present on admission. Continue wound care recommendations. Code: DNR/DNI Problem List: 1. PARRIS (acute kidney injury) 2. Peripheral vascular disease Pain Ratin (at time of interview) Pain Location: None Pain Goal: Pain 4 or less Pain Plan: continue current plan Tomorrow's Labs & Rationales: CBC bEP Jeff Haas 04/12/17 1108: Attending MD Review Statement Attending Statement Attending MD Statement: examined this patient, discuss w/resident/PA/CORE EXTRUDER, agreed w/resident/PA/CORE EXTRUDER, discussed with family, reviewed EMR data (avail), discussed with nursing, discussed with case mgmt, reviewed images, amended to note Attending Assessment/Plan: 71 o/m with pmh of vasculpathy and poor blood flow to lower extremity and not amneable to surgery admitted for acute hypoxic respiratroy failure 2/2 acute lung injury 2/2 aspiration pneumonitis. Patient has gangrene of his toes and purplish discoloration of foot. Patient is transferred from ICU to gen/med for further care. Patient family had extensive discussion in ICU regarding further care and wished comfort care. Patient PCP Dr Adame had revisited this scenario with Angelo. Patient takes his decisions in consultation with family. Yamilet consult for patient decision making capacity as he has waxing and waning mental status but not sure if understands risks/benefits of current medical management. cont current care..
--- NOTE | 2017-04-12 09:40 | PN- Diabetes ---
Assessment/Plan Diabetes Assessment: The patient feels about the same. He states he is not to hungry this morning and has not yet eaten breakfast. In speaking with the patient this morning he is oriented to person and place. He states that he does want to consider a below the knee amputation on his right leg. He understands that he is high risk for this procedure. Patient sugars are starting to become somewhat low. Suggest reduce Levemir to 6 units twice a day. Continue the present sliding scale NovoLog. Plan: See above. Subjective Subjective: Feels about the same Review of Systems Constitutional: Denies: chills, fever. Cardiovascular: Denies: chest pain. Respiratory: Reports: short of breath. Gastrointestinal: Reports: nausea, vomiting. Objective Last 24 Hrs of Vital Signs/I&O Vital Signs Date Time Temp Pulse Resp B/P B/P Pulse O2 O2 Flow FiO2 Mean Ox Delivery Rate 04/12 0657 97.1 70 20 138/72 99 04/12 0127 99 Nasal 90% Cannula 04/12 0000 Nasal 45% Cannula 04/11 1600 98 Nasal 90% Cannula 04/11 1308 99 Nasal 90% Cannula 04/11 1300 98.0 64 16 110/64 99 Nasal 90% Cannula Vital Signs Date Time Temp Pulse Resp B/P B/P Pulse O2 O2 Flow FiO2 Mean Ox Delivery Rate 04/12 0657 97.1 70 20 138/72 99 04/12 0127 99 Nasal 90% Cannula 04/12 0000 Nasal 45% Cannula 04/11 1600 98 Nasal 90% Cannula 04/11 1308 99 Nasal 90% Cannula 04/11 1300 98.0 64 16 110/64 99 Nasal 90% Cannula Intake & Output 04/12 1600 04/12 0800 04/12 0000 Intake Total 400 Output Total 0 375 Balance 400 -375 Intake, IV 400 Number 1 Bowel Movements Output, Urine 0 375 Physical Exam General Appearance: awake, comfortable, lethargic Head: normal appearance Neck: normal inspection Respiratory: normal breath sounds Cardiovascular: regular rate/rhythm Abdomen: normal bowel sounds Extremities: right lower leg bandaged Current Medications: Current Medications Sig/Coral Start time Last Medication Dose Route Stop Time Status Admin Acetaminophen 500 MG TID 04/03 1156 AC 04/11 PO 2232 Amlodipine Besylate 5 MG DAILY 04/03 1200 AC 04/11 PO 0951 Aspirin 81 MG DAILY 04/04 1000 AC 04/11 PO 0951 Dextrose/Water 1,000 ML .Q20H 04/09 0815 AC 04/10 IV 2040 Fluticasone 2 SPRAY DAILY 04/03 1155 AC 04/11 Propionate THOMAS 0951 Furosemide 20 MG 7:30 AM, & 4:30 PM 04/11 1430 AC 04/12 IV 0800 Heparin Sodium 5,000 UNIT Q8 04/03 1400 AC 04/12 (Porcine) SC 0554 Insulin Aspart 0 Q4 04/08 1000 AC 04/11 SC 2231 Insulin Detemir 6 UNITS BID 04/12 1000 AC SC Insulin Detemir 7 UNITS BID 04/10 1000 DC 04/11 SC 2230 Metoprolol Succinate 25 MG DAILY 04/03 1714 AC 04/11 PO 0951 Morphine Sulfate 2 MG Q4P PRN 04/04 1845 AC 04/11 IV 0454 Omeprazole 40 MG DAILY AC 04/11 0700 AC 04/12 PO 0800 Pregabalin 50 MG TID 04/03 1155 AC 04/11 PO 2230 Findings Pertinent Lab/Fransisco Results: Laboratory Tests 04/12 04/12 0824 0632 Chemistry Sodium (137 - 145 mmol/L) 141 Potassium (3.5 - 5.1 mmol/L) 4.7 Chloride (98 - 107 mmol/L) 102 Carbon Dioxide (22 - 30 mmol/L) 30 Anion Gap (5 - 16) 9 BUN (9 - 20 mg/dL) 47 H Creatinine (0.7 - 1.2 mg/dL) 1.2 Estimated GFR (>60 ml/min) > 60 BUN/Creatinine Ratio (7 - 25 %) 39.2 H Hematology CBC w Diff NO MAN DIFF REQ WBC (4.8 - 10.8 /CUMM) 10.6 RBC (4.70 - 6.10 /CUMM) 2.95 L Hgb (14.0 - 18.0 G/DL) 9.0 L Hct (42 - 52 %) 27.4 L MCV (80.0 - 94.0 FL) 92.9 MCH (27.0 - 31.0 PG) 30.6 MCHC (33.0 - 37.0 G/DL) 33.0 RDW (11.5 - 14.5 %) 14.3 Plt Count (130 - 400 /CUMM) 436 H MPV (7.4 - 10.4 FL) 8.2 Gran % (42.2 - 75.2 %) 78.8 H Lymphocytes % (20.5 - 51.1 %) 8.7 L Monocytes % (1.7 - 9.3 %) 4.7 Eosinophils % (0 - 5 %) 7.3 H Basophils % (0.0 - 2.0 %) 0.5 Absolute Granulocytes (1.4 - 6.5 /CUMM) 8.4 H Absolute Lymphocytes (1.2 - 3.4 /CUMM) 0.9 L Absolute Monocytes (0.10 - 0.60 /CUMM) 0.5 Absolute Eosinophils (0.0 - 0.7 /CUMM) 0.8 Absolute Basophils (0.0 - 0.2 /CUMM) 0.1
--- NOTE | 2017-04-12 12:36 | PN- Cardiology ---
Subjective Subjective: Resting comfortably on high flow nasal cannula oxygen. Objective Vital Signs and I&Os Vital Signs Date Time Temp Pulse Resp B/P B/P Pulse O2 O2 Flow FiO2 Mean Ox Delivery Rate 04/12 1150 93 Nasal 85% Cannula 04/12 1004 68 122/68 04/12 1002 68 122/68 04/12 0657 97.1 70 20 138/72 99 04/12 0127 99 Nasal 90% Cannula 04/12 0000 Nasal 45% Cannula 04/11 1600 98 Nasal 90% Cannula 04/11 1308 99 Nasal 90% Cannula 04/11 1300 98.0 64 16 110/64 99 Nasal 90% Cannula Intake & Output 04/12 1600 04/12 0800 04/12 0000 04/11 1600 04/11 0800 04/11 0000 Intake Total 400 1220 300 838 Output Total 0 375 200 0 Balance 400 -375 1020 300 838 Intake, IV 400 700 300 598 Intake, Oral 520 240 Number 1 1 0 Bowel Movements Output, Urine 0 375 200 0 Physical Exam: General: no apparent distress. Alert. On high flow O2. Eyes: No obvious scleral icterus. HEENT: No jugular venous distention or abnormal jugular venous pulsations. Cardiovascular: Normal intensity S1/S2. PMI not grossly displaced. Respiratory: Decreased air entry Abdomen: Soft, nontender with no guarding or rebound tenderness. Musculoskeletal: No clubbing noted; trace lower extremity edema Skin: Right foot bandaged Current Medications: Current Medications Sig/Coral Start time Last Medication Dose Route Stop Time Status Admin Acetaminophen 500 MG TID 04/03 1156 AC 04/12 PO 1004 Amlodipine Besylate 5 MG DAILY 04/03 1200 AC 04/12 PO 1002 Aspirin 81 MG DAILY 04/04 1000 AC 04/12 PO 1002 Dextrose/Water 1,000 ML .Q20H 04/09 0815 AC 04/10 IV 2040 Fluticasone 2 SPRAY DAILY 04/03 1155 AC 04/12 Propionate THOMAS 1003 Furosemide 20 MG 7:30 AM, & 4:30 PM 04/11 1430 AC 04/12 IV 0800 Heparin Sodium 5,000 UNIT Q8 04/03 1400 AC 04/12 (Porcine) SC 0554 Insulin Aspart 0 Q4 04/08 1000 AC 04/11 SC 2231 Insulin Detemir 6 UNITS BID 04/12 1000 AC 04/12 SC 1003 Insulin Detemir 7 UNITS BID 04/10 1000 DC 04/11 SC 2230 Metoprolol Succinate 25 MG DAILY 04/03 1714 AC 04/12 PO 1004 Morphine Sulfate 2 MG Q4P PRN 04/04 1845 AC 04/11 IV 0454 Omeprazole 40 MG DAILY AC 04/11 0700 AC 04/12 PO 0800 Pregabalin 50 MG TID 04/03 1155 AC 04/12 PO 1004 Results Last 48 Hrs of Labs/Mics: Laboratory Tests 04/12/17 0824: CBC w Diff NO MAN DIFF REQ, RBC 2.95 L, MCV 92.9, MCH 30.6, MCHC 33.0, RDW 14.3 , MPV 8.2, Gran % 78.8 H, Lymphocytes % 8.7 L, Monocytes % 4.7, Eosinophils % 7.3 H, Basophils % 0.5, Absolute Granulocytes 8.4 H, Absolute Lymphocytes 0.9 L, Absolute Monocytes 0.5, Absolute Eosinophils 0.8, Absolute Basophils 0.1 04/12/17 0632: Anion Gap 9, Estimated GFR > 60, BUN/Creatinine Ratio 39.2 H 04/11/17 0530: Anion Gap 10, Estimated GFR 55 L, Glucose 149 H, Calcium 8.5, Phosphorus 4.1, Magnesium 2.6 H, Total Bilirubin 0.6, AST 26, ALT 38, Albumin 3.1 L, CBC w Diff NO MAN DIFF REQ, RBC 2.93 L, MCV 92.8, MCH 29.9, MCHC 32.2 L, RDW 13.7, MPV 8.3, Gran % 88.3 H, Lymphocytes % 7.6 L, Monocytes % 3.7, Eosinophils % 0.1, Basophils % 0.3, Absolute Granulocytes 9.1 H, Absolute Lymphocytes 0.8 L, Absolute Monocytes 0.4, Absolute Eosinophils 0, Absolute Basophils 0 Recent Imaging Studies: Not on telemetry Assessment/Plan Assessment/Plan 1. Heart failure with reduced ejection fraction 2. Aspiration pneumonitis 3. PVD with gangrene 4. Diabetes 5. Renal insufficiency The patient is resting comfortably on high flow nasal cannula oxygen. Remains on IV Lasix with stable kidney function. He is considering BKA which would be at elevated risk. If kidney function remains stable he will need to be considered for JOHNNIE inhibitor therapy given reduced ejection fraction. Ion Brown MD FACC Continue telemetry? Not applicable
[2017-04-12 14:16] VITALS: BP 130/60
[2017-04-12 21:52] VITALS: BP 122/66
[2017-04-13 06:10] VITALS: BP 138/60
--- NOTE | 2017-04-13 08:01 | PN- Housestaff ---
Samira Avila MD,[facility] 04/13/17 0801: Subjective Follow-up For: Acute hypoxic respiratory failure Acute lung injury Severe peripheral vascular disease Right leg gangrene Type 1 diabetes Renal insufficiency Subjective: Patient visited today, was lying in bed comfortably in no acute distress, was alert and oriented. No fever or chills overnight, high flow 70% oxygen in place, no chest pain, no other events. Psych and Dr Young were consulted regarding plan of care. Held a meeting in although son and his presents. Patient was found not to be capacitate to make desicion regarding management. Family requested some time to make desicion. We will follow in the evening at 5pm. Review of Systems Constitutional: Reports: see HPI. Objective Last 24 Hrs of Vital Signs/I&O Vital Signs Date Time Temp Pulse Resp B/P B/P Pulse O2 O2 Flow FiO2 Mean Ox Delivery Rate 04/13 1337 98.7 90 22 136/80 95 Nasal 70% Cannula 04/13 1022 76 132/80 04/13 0918 22 96 Nasal 80% Cannula 04/13 0800 22 98 Nasal 85% Cannula 04/13 0800 98 Nasal 85% Cannula 04/13 0610 98.8 72 20 138/60 100 04/13 0101 99 Nasal 85% Cannula 04/13 0000 Nasal 85% Cannula 04/12 2222 96 Nasal 85% Cannula 04/12 2152 97.8 69 18 122/66 100 Nasal 85% Cannula 04/12 2011 96 Nasal 85% Cannula 04/12 1600 100 Nasal 85% Cannula 04/12 1600 96 Nasal 85% Cannula 04/12 1416 97.3 73 18 130/60 100 Nasal 85% Cannula Intake & Output 04/13 1600 04/13 0800 04/13 0000 Intake Total 440 890 Output Total 600 450 Balance -160 440 Intake, IV 200 410 Intake, Oral 240 480 Output, Urine 600 450 Patient 170 lb Weight Weight Bed scale Measurement Method Physical Exam General Appearance: Alert, Oriented X3, Cooperative, No Acute Distress, Patient was found not capacitate to make medical treatment desicion Skin: right leg in dressing, gangrenous Skin Temp/Moisture Exam: Warm/Dry HEENT: Atraumatic, EOMI, Mucous Membr. moist/pink Cardiovascular: Normal S1, Normal S2 Lungs: High flow in place, crackles Abdomen: Normal Bowel Sounds, Soft, No Tenderness Neurological: Normal Speech, Motor grossly normal, no change compared to yesterday Extremities: as noted above Current Medications: Current Medications Sig/Coral Start time Last Medication Dose Route Stop Time Status Admin Acetaminophen 500 MG TID 04/03 1156 AC 04/13 PO 1022 Amlodipine Besylate 5 MG DAILY 04/03 1200 AC 04/13 PO 1022 Aspirin 81 MG DAILY 04/04 1000 AC 04/13 PO 1022 Dextrose/Water 1,000 ML .Q20H 04/09 0815 AC 04/13 IV 1105 Fluticasone 2 SPRAY DAILY 04/03 1155 AC 04/13 Propionate THOMAS 1043 Furosemide 20 MG 7:30 AM, & 4:30 PM 04/11 1430 AC 04/13 IV 0851 Heparin Sodium 5,000 UNIT Q8 04/03 1400 AC 04/13 (Porcine) SC 1346 Insulin Aspart 0 Q4 04/08 1000 AC 04/13 SC 1346 Insulin Detemir 6 UNITS BID 04/12 1000 AC 04/13 SC 1022 Metoprolol Succinate 25 MG DAILY 04/03 1714 AC 04/13 PO 1022 Morphine Sulfate 2 MG Q4P PRN 04/04 1845 AC 04/11 IV 0454 Omeprazole 40 MG DAILY AC 04/11 0700 AC 04/13 PO 0556 Povidone Iodine 1 MEHRAN DAILY 04/13 1000 AC 04/13 TOP 1043 Pregabalin 50 MG TID 04/03 1155 AC 04/13 PO 1021 Last 24 Hrs of Lab/Fransisco Results Last 24 Hrs of Labs/Mics: Laboratory Tests 04/13/17 0715: Anion Gap 7, Estimated GFR > 60, BUN/Creatinine Ratio 32.5 H, CBC w Diff NO MAN DIFF REQ, RBC 2.89 L, MCV 92.6, MCH 30.4, MCHC 32.9 L, RDW 14.1, MPV 8.8, Gran % 82.8 H, Lymphocytes % 6.8 L, Monocytes % 4.1, Eosinophils % 5.5 H, Basophils % 0.8, Absolute Granulocytes 9.0 H, Absolute Lymphocytes 0.7 L, Absolute Monocytes 0.4, Absolute Eosinophils 0.6, Absolute Basophils 0.1 Assessment/Plan Assessment: Mr Liu is a 71-year-old gentleman with a past medical history of type I diabetes on insulin pump (complicated by neuropathy, retinopathy and nephropathy ), complete heart block status post pacemaker, PVD previous admission to [facility] 2 weeks prior to admission for 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 He was initially admitted on the telemetry service and then subseuquently transferred to the CRCU due to hypoxia and tachycardia. He is admitted in the CRCU and was then transferred to after disscussions of comfort measures. Patient presented with siginficant improvement in mental condition while in floor and accordingly the disscusion of performing surgery was reconsidered. Acute on chronic hypoxemic respiratory failure This was considered multifactorial, including CHF, acute lung injury possibly bilateral aspiration pneumonitis. Patient also received broad spectrum antibiotics and was currently off antibiotics per ID. - Continues to be on high flow oxygen. - No aggressive interventions including pressors Significant Peripharel Vascular Disease Complicated with osteomyelitis and gangrene of foot s/p MRSA OM; Right foot gangrene involving second and third toe. This morning, the patient may be considering amputation. His primary care physician Dr. Adame suggested that he will likely need a BKA instead of the TMA for a better prognostic outcome. Patient is currently thinking about whether to proceed for a procedure vs not. - Pysch and ID on board - Patient does not have capacity to make medical desicion today - family is currently thinking regarding treatment plans Type II OR Over the course of the admission, Troponin peaked at 6.64 which was thought be likely due to type 2 OR. No EKG changes s/o OR. Component of volume overload, PRN diuresis while monitoring the serum creatinine closely. Echocardiogram: Left ventricular cavity size at the upper limits of normal. Mild to moderate concentric left ventricular hypertrophy. The inferior and posterior calderon are akinetic. The septum and apex contracts fairly well. Estimated ejection fraction is 35-40%. Catheter/pacemaker wire in the right ventricular cavity. Catheter/pacemaker wire in the right atrial appendage. Mild left atrial dilatation. Moderate thickening/calcification of the mitral valve leaflets. Moderate mitral annular calcification. Mild mitral regurgitation. Focal thickening of the aortic valve cusps. No aortic stenosis. Right ventricular systolic pressure estimated to be elevated at 55- 60 mmHg. Moderate to severe pulmonary hypertension. Left pleural effusion. Dilated IVC. Dr Avery, guest relations officer on board, resuming Lasix 20 IV BID. Will monitor Cr, and further dosing changes if warranted. PARRIS on CKD Could be related to DM, he also had recent angiogram that could precipitate PARRIS. Appears to be improving. Sr Cr 1.8--> 1.2. Will continue to monitor. Type 1 Diabetes Complicated with diabetic nephropathy, neuropathy, peripheral vascular disease and retinopathy. Endocrinology on board, appreciate recomendations. - updated insuline dose Skin: Unstageable pressure ulcer noted on right upper buttocks which was present on admission. Continue wound care recommendations. Code: DNR/DNI Problem List: 1. Peripheral vascular disease 2. Acute and chronic respiratory failure with hypoxia Pain Ratin Pain Location: None at time of interview Pain Goal: Pain 4 or less Pain Plan: continue current plan Tomorrow's Labs & Rationales: CBC BEP Jeff Haas 04/13/17 1158: Attending MD Review Statement Attending Statement Attending MD Statement: examined this patient, discuss w/resident/PA/WASTEWATER PLANT CIVIL ENGINEER, agreed w/resident/PA/WASTEWATER PLANT CIVIL ENGINEER, discussed with family, reviewed EMR data (avail), discussed with nursing, discussed with case mgmt, reviewed images, amended to note Attending Assessment/Plan: 71 o/m with pmh of vasculpathy and poor blood flow to lower extremity and not amneable to surgery admitted for acute hypoxic respiratroy failure 2/2 acute lung injury 2/2 aspiration pneumonitis. Patient has gangrene of his toes and purplish discoloration of foot. Patient is transferred from ICU to gen/med for further care. Patient family had extensive discussion in ICU regarding further care and wished comfort care. Patient PCP Dr Adame had revisited this scenario with Angelo for possible BKA. Yamilet consulted for patient decision making capacity as he has waxing and waning mental status and determined him not able to make his own decisions. f/u psych. cont current care.
[2017-04-13 08:35] LABS: ABSOLUTE BASOPHIL COUNT 0.1 /CUMM (0.0-0.2); ABSOLUTE EOSINOPHIL COUNT 0.6 /CUMM (0.0-0.7); ABSOLUTE LYMPH COUNT 0.7 /CUMM (1.2-3.4); ABSOLUTE MONOCYTE COUNT 0.4 /CUMM (0.10-0.60); BASOPHIL % 0.8 % (0.0-2.0); EOSINOPHIL % 5.5 % (0-5); GRANULOCYTE % 82.8 % (42.2-75.2); HEMATOCRIT 26.8 % (42-52); MEAN CORPUSCULAR HGB 30.4 PG (27.0-31.0); MEAN CORPUSCULAR HGB CONC 32.9 G/DL (33.0-37.0); MEAN CORPUSCULAR VOLUME 92.6 FL (80.0-94.0); MEAN PLATELET VOLUME 8.8 FL (7.4-10.4); PLATELET COUNT 463 /CUMM (130-400); RBC DISTRIBUTION WIDTH 14.1 % (11.5-14.5); RED BLOOD CELL CT 2.89 /CUMM (4.70-6.10); WHITE BLOOD CELL COUNT 10.8 /CUMM (4.8-10.8)
--- NOTE | 2017-04-13 09:10 | PN- Diabetes ---
Assessment/Plan Diabetes Assessment: 70 y/o male, Hx of DM type 1 diagnosed when he was 14 years old. He was on an insulin pump with basal rate running at 0.9 units per hour in the past. His diabetes was complicated by neuropathy, retinopathy, nephropathy. Patient presented to the ED after sustaining an unwitnessed fall. He was admitted for positive troponin with peak troponin of 6.64, ongoing right foot infection and gangrene of 2nd toe and 3rd toe. The procedure for Right BKA is pending. His po intake has been poor. He is on D5W at 50 ml/hour. Currently he is on Levemir 6 units twice a day, Novolog coverage every 4 hours. His FSGs were 122, 319, 183, 151 and 138. Plan: continue the current insulin regimen for now; monitor FSGs. will follow. Subjective Subjective: He is awake. Objective Last 24 Hrs of Vital Signs/I&O Vital Signs Date Time Temp Pulse Resp B/P B/P Pulse O2 O2 Flow FiO2 Mean Ox Delivery Rate 04/13 0610 98.8 72 20 138/60 100 04/13 0101 99 Nasal 85% Cannula 04/13 0000 Nasal 85% Cannula 04/12 2222 96 Nasal 85% Cannula 04/12 2152 97.8 69 18 122/66 100 Nasal 85% Cannula 04/12 2011 96 Nasal 85% Cannula 04/12 1600 100 Nasal 85% Cannula 04/12 1600 96 Nasal 85% Cannula 04/12 1416 97.3 73 18 130/60 100 Nasal 85% Cannula 04/12 1150 93 Nasal 85% Cannula 04/12 1004 68 122/68 04/12 1002 68 122/68 Intake & Output 04/13 1600 04/13 0800 04/13 0000 Intake Total 440 890 Output Total 600 450 Balance -160 440 Intake, IV 200 410 Intake, Oral 240 480 Output, Urine 600 450 Patient 170 lb Weight Weight Bed scale Measurement Method Findings Pertinent Lab/[place] Results: Laboratory Tests 04/13 0715 Chemistry Sodium (137 - 145 mmol/L) 142 Potassium (3.5 - 5.1 mmol/L) 4.5 Chloride (98 - 107 mmol/L) 101 Carbon Dioxide (22 - 30 mmol/L) 34 H Anion Gap (5 - 16) 7 BUN (9 - 20 mg/dL) 39 H Creatinine (0.7 - 1.2 mg/dL) 1.2 Estimated GFR (>60 ml/min) > 60 BUN/Creatinine Ratio (7 - 25 %) 32.5 H Hematology CBC w Diff Pending WBC Pending RBC Pending Hgb Pending Hct Pending MCV Pending MCH Pending MCHC Pending RDW Pending Plt Count Pending MPV Pending
--- NOTE | 2017-04-13 11:14 | Cons- Psychiatry ---
Psychiatric Consult Date of Consult: 04/13/17 Reason for Consult: "capacity evaluation planning for surgical procedure otherwise, family says otherwise" Clarified with the medical team: Please evaluate the patient for the capacity to make a decision about surgery to amputate a gangrenous and infected right leg below the knee. History of Present Illness: The patient is a 71 y.o. , male, who had presented on 03/15/17 for redness and swelling in his right toes, placed on Keflex and returned home. He re-presented on 03/18/17 for worsening pain. The patient had a right 1st toe amputation on 03/24/17 and an angioplasty of the right femoral artery on 03/26/17. After treatment, he was sent to an ECF/rehab. On 04/03/17, this admission, he was sent back to the ED after a presumed, unwitnessed fall, having been found on the ground. Per the H&P of 04/03/17: "Mr. Liu is a 71-year-old man with history of hypertension, hyperlipidemia, status post pacemaker placement, type 1 diabetes, complicated by neuropathy, retinopathy, nephropathy presents to the ED after sustaining an unwitnessed fall at the [facility] this morning. Patient has no reconnection of the incidents. He states that he never tries to get out of bed without help, and is confused as to how he was found on the floor at the facility. He only woke up in the [facility] ED, and is unaware if his loss of consciousness was associated with any seizure-like activity. He denied noticing any palpitations, lightheadedness or dizziness prior to or after the episode of loss of consciousness. He is unclear if his sugars have been well- controlled in the facility. He states compliance with all his medications, as they are administered by the nursing staff at [facility]. Patient was recently discharged on 03/30/2017 from [facility] after having a prolonged stay requiring SFA atherectomy, toe amputation with wound VAC placement, diagnosis of osteomyelitis requiring PICC line placement and a prolonged vancomycin course. Today, patient presents with no fevers, chills, no chest pain, no palpitations. He does endorse to some intermittent shortness of breath. No cough or phlegm production. He does have elevated white count with left shift on review of his labs. He does have evidence of acute kidney injury as well." He was admitted to telemetry, due to cardiac and respiratory history, and later transferred to the ICU He is under care by Dr. Adame for diabetes type I (Since 14 y.o.), not well- controlled at admission. He is followed for cardiology by Dr. Avery and for podiatry by Dr. Vargas. Allergies: Coded Allergies: NO KNOWN ALLERGIES (NONE 04/08/17) Current Medications: Current Medications Sig/Coral Start time Last Medication Dose Route Stop Time Status Admin Acetaminophen 500 MG TID 04/03 1156 AC 04/13 PO 1022 Amlodipine Besylate 5 MG DAILY 04/03 1200 AC 04/13 PO 1022 Aspirin 81 MG DAILY 04/04 1000 AC 04/13 PO 1022 Dextrose/Water 1,000 ML .Q20H 04/09 0815 AC 04/13 IV 1105 Fluticasone 2 SPRAY DAILY 04/03 1155 AC 04/13 Propionate THOMAS 1043 Furosemide 20 MG 7:30 AM, & 4:30 PM 04/11 1430 AC 04/13 IV 0851 Heparin Sodium 5,000 UNIT Q8 04/03 1400 AC 04/13 (Porcine) SC 0555 Insulin Aspart 0 Q4 04/08 1000 AC 04/13 SC 1022 Insulin Detemir 6 UNITS BID 04/12 1000 AC 04/13 SC 1022 Metoprolol Succinate 25 MG DAILY 04/03 1714 AC 04/13 PO 1022 Morphine Sulfate 2 MG Q4P PRN 04/04 1845 AC 04/11 IV 0454 Omeprazole 40 MG DAILY AC 04/11 0700 AC 04/13 PO 0556 Povidone Iodine 1 MEHRAN DAILY 04/13 1000 AC 04/13 TOP 1043 Pregabalin 50 MG TID 04/03 1155 AC 04/13 PO 1021 Past History Past Medical History Neurological: peripheral neuropathy EENT: cataracts, diabetic retinopathy Cardiovascular: CAD, hypertension, hyperlipidemia, Pacemaker (R) Respiratory: bronchitis Gastrointestinal: NONE Hepatic: NONE Renal: NONE Musculoskeletal: fracture, right foot osteomyeltitis w/ wound vac at right great toe (Mar 2017) Psychiatric: NONE Endocrine: diabetes type 1 Blood Disorders: NONE Cancer(s): NONE MEDICAL PHYSICIST/Reproductive: NONE Past Surgical History Surgical History: pacemaker right great toe amputation Feb 2017 Psychosocial History Strengths/Capabilities: Supportive family Physical Limitations (Interventions): Difficulty with ambulation at this time. Recent falls of unknown etiology. Psychiatric Treatment History Psych Treatment Psychiatric Treatment No Risk Factors: age (under 24/over 65), lives alone, male Substance Use/Abuse History Drug Use/Abuse Substances Used/Abused No Substance Abuse Treatment Substance Abuse Treatment Past Substance Abuse [place] No Assessment/Plan Mental Status Orientation: Knows person, month, season, place, State, county, town, President, but not year ("1917") date or day of week. Affect: Appropriate Speech: Soft Neuro-vegetative: Helpless Mental Status Exam: Folstein.MMSE score today is 21/30. The patient does not have his glasses, and had difficulty seeing the figure to copy, but chelsy one half of the polygon. There were deficits in speeling WORLD backwareds, recalling 3 objects (recalled 2 of 3), following a three stage command (Took the paper in his domninat hand, but just held it, not folding or placing in lap.) Despite visual challenges, he was able to read and obey. The patient endorses anxiety and feeling os depression, endorsing helplessness, "some" worthlessness, "some" guilt. He denies hopelessness. He denies SI, HI and denies a history of suicide attempt. He feels safe here and at home. The patient denies AH, VH and presents no [place] delusions. He states that he is in the hospital "because of things that led to me being hurt." Capacity evaluation: Understanding of the facts in general: The patient cannot state all the risks of not treating an infection or gangrene, omitting the possibility of . It is unclear if her had a complete understanding of the infective and necrotic process. Communicate a choice: He is able to communicate verbally. Appreciation of the facts as they apply to himself: The patient states that he might need antibiotics, and after 4 or 5 days, he might need IV antibiotics. He is unable to verbalize understanding of the benefits of the surgery. Reasoning: After the possible choices were presented to the patient again, he states that his choice would be to have the surgery, "I have no choice." He is unable to verbalize the reasoning process, wherein he would weigh the pros and cons of not having the surgery and having the surgery, which we understand is to remove his right leg below the knee, due to gangrenous toes on that foot and osteromyelitis. The patient is afebrile at the time of the interview. Lab Results: Laboratory Tests 04/13 0715 Chemistry Sodium (137 - 145 mmol/L) 142 Potassium (3.5 - 5.1 mmol/L) 4.5 Chloride (98 - 107 mmol/L) 101 Carbon Dioxide (22 - 30 mmol/L) 34 H Anion Gap (5 - 16) 7 BUN (9 - 20 mg/dL) 39 H Creatinine (0.7 - 1.2 mg/dL) 1.2 Estimated GFR (>60 ml/min) > 60 BUN/Creatinine Ratio (7 - 25 %) 32.5 H Hematology CBC w Diff NO MAN DIFF REQ WBC (4.8 - 10.8 /CUMM) 10.8 RBC (4.70 - 6.10 /CUMM) 2.89 L Hgb (14.0 - 18.0 G/DL) 8.8 L Hct (42 - 52 %) 26.8 L MCV (80.0 - 94.0 FL) 92.6 MCH (27.0 - 31.0 PG) 30.4 MCHC (33.0 - 37.0 G/DL) 32.9 L RDW (11.5 - 14.5 %) 14.1 Plt Count (130 - 400 /CUMM) 463 H MPV (7.4 - 10.4 FL) 8.8 Gran % (42.2 - 75.2 %) 82.8 H Lymphocytes % (20.5 - 51.1 %) 6.8 L Monocytes % (1.7 - 9.3 %) 4.1 Eosinophils % (0 - 5 %) 5.5 H Basophils % (0.0 - 2.0 %) 0.8 Absolute Granulocytes (1.4 - 6.5 /CUMM) 9.0 H Absolute Lymphocytes (1.2 - 3.4 /CUMM) 0.7 L Absolute Monocytes (0.10 - 0.60 /CUMM) 0.4 Absolute Eosinophils (0.0 - 0.7 /CUMM) 0.6 Absolute Basophils (0.0 - 0.2 /CUMM) 0.1 Diffential Diagnosis: Delirium related to toxic or metabolic causes. Neurocognitive disorder, unspecified Impression: The patient does not have the capacity to understand the risks, benefits or side effects of having or not having the surgery at this time. After the interview, the patient's son appeared to present his power of infrastructure tech paperwork. Dr. Haim Moreno, surgeon, also was present to explain the three options: Do nothing to surgically intervene, perform an amputation of the distal portion of the right foot (toes) or to perfomr the right BKA. The alternatives for likely intubation and anesthesia were discussed, and Dr. Moreno will ask anesthesiology to look in and comment on the possibilities. As the patient does not have capacity to decide at this time, the decision for surgical care will be considered by his son. We will be happy to re-examine the patient. Provisional Treatment Plan: 1. The patient does not currently have the capacity to fully understand the proposed surgery, including risks, benefits and side effects. He has a partial understanding of the effects on his lifestyle of any surgery. We will continue to follow along. Thank you for this consult.
[2017-04-13 13:37] VITALS: BP 136/80
--- NOTE | 2017-04-13 15:02 | PN- Infect Dx ---
Subjective Subjective: Recent events noted with discussion regarding possible surgery and patient's capacity to make a decision regarding this. He does not offer any complaints at this time Objective Last 24 Hrs of Vital Signs/I&O Vital Signs Date Time Temp Pulse Resp B/P B/P Pulse O2 O2 Flow FiO2 Mean Ox Delivery Rate 04/13 1337 98.7 90 22 136/80 95 Nasal 70% Cannula 04/13 1022 76 132/80 04/13 0918 22 96 Nasal 80% Cannula 04/13 0800 22 98 Nasal 85% Cannula 04/13 0800 98 Nasal 85% Cannula 04/13 0610 98.8 72 20 138/60 100 04/13 0101 99 Nasal 85% Cannula 04/13 0000 Nasal 85% Cannula 04/12 2222 96 Nasal 85% Cannula 04/12 2152 97.8 69 18 122/66 100 Nasal 85% Cannula 04/12 2010 96 Nasal 85% Cannula 04/12 1600 100 Nasal 85% Cannula 04/12 1600 96 Nasal 85% Cannula Intake & Output 04/13 1600 04/13 0800 04/13 0000 Intake Total 1200 440 890 Output Total 0 600 450 Balance 1200 -160 440 Intake, IV 400 200 410 Intake, Oral 800 240 480 Number 0 Bowel Movements Output, Urine 0 600 450 Patient 170 lb Weight Weight Bed scale Measurement Method Physical Exam Other Physical Findings: He appears confused but is in no acute distress Lungs are clear Heart regular rhythm with no murmur Abdomen is soft, nontender with positive bowel sounds Extremities right foot dressing intact Results Last 24 Hours of Lab Results: Laboratory Tests 04/13 0715 Chemistry Sodium (137 - 145 mmol/L) 142 Potassium (3.5 - 5.1 mmol/L) 4.5 Chloride (98 - 107 mmol/L) 101 Carbon Dioxide (22 - 30 mmol/L) 34 H Anion Gap (5 - 16) 7 BUN (9 - 20 mg/dL) 39 H Creatinine (0.7 - 1.2 mg/dL) 1.2 Estimated GFR (>60 ml/min) > 60 BUN/Creatinine Ratio (7 - 25 %) 32.5 H Hematology CBC w Diff NO MAN DIFF REQ WBC (4.8 - 10.8 /CUMM) 10.8 RBC (4.70 - 6.10 /CUMM) 2.89 L Hgb (14.0 - 18.0 G/DL) 8.8 L Hct (42 - 52 %) 26.8 L MCV (80.0 - 94.0 FL) 92.6 MCH (27.0 - 31.0 PG) 30.4 MCHC (33.0 - 37.0 G/DL) 32.9 L RDW (11.5 - 14.5 %) 14.1 Plt Count (130 - 400 /CUMM) 463 H MPV (7.4 - 10.4 FL) 8.8 Gran % (42.2 - 75.2 %) 82.8 H Lymphocytes % (20.5 - 51.1 %) 6.8 L Monocytes % (1.7 - 9.3 %) 4.1 Eosinophils % (0 - 5 %) 5.5 H Basophils % (0.0 - 2.0 %) 0.8 Absolute Granulocytes (1.4 - 6.5 /CUMM) 9.0 H Absolute Lymphocytes (1.2 - 3.4 /CUMM) 0.7 L Absolute Monocytes (0.10 - 0.60 /CUMM) 0.4 Absolute Eosinophils (0.0 - 0.7 /CUMM) 0.6 Absolute Basophils (0.0 - 0.2 /CUMM) 0.1 Last 24 Hours of [place] Results: No new cultures Assessment/Plan ID Impression: Condition remains poor, with family against any aggressive measures but with further evaluation, particularly surrounding the patient's capacity to make a decision, ongoing. He remains afebrile with white blood cell count normal off antibiotics, as these were discontinued several days ago when comfort measures were being considered. If he is to undergo a right TMA he will require a PICC and a 4 week course of Vancomycin for a presumed residual osteomyelitis. If he undergoes a right BKA he should not require any antibiotics other than a prophylactic dose of Vancomycin prior to the procedure. Suggestion: 1. Await decision regarding patient's competency and right foot surgery 2. Continue to follow off antibiotics pending above
[2017-04-13 20:54] VITALS: BP 118/54
[2017-04-14 06:10] VITALS: BP 124/62
[2017-04-14 07:49] LABS: ABSOLUTE BASOPHIL COUNT 0 /CUMM (0.0-0.2); ABSOLUTE EOSINOPHIL COUNT 0 /CUMM (0.0-0.7); ABSOLUTE GRANULOCYTE CT 11.2 /CUMM (1.4-6.5); ABSOLUTE LYMPH COUNT 0.5 /CUMM (1.2-3.4); ABSOLUTE MONOCYTE COUNT 0.3 /CUMM (0.10-0.60); BASOPHIL % 0.4 % (0.0-2.0); EOSINOPHIL % 0.2 % (0-5); HEMATOCRIT 27.9 % (42-52); MEAN CORPUSCULAR HGB 30.7 PG (27.0-31.0); MEAN CORPUSCULAR HGB CONC 33.2 G/DL (33.0-37.0); MEAN CORPUSCULAR VOLUME 92.7 FL (80.0-94.0); MEAN PLATELET VOLUME 8.8 FL (7.4-10.4); PLATELET COUNT 503 /CUMM (130-400); RBC DISTRIBUTION WIDTH 14.3 % (11.5-14.5); RED BLOOD CELL CT 3.01 /CUMM (4.70-6.10); WHITE BLOOD CELL COUNT 12.1 /CUMM (4.8-10.8)
--- NOTE | 2017-04-14 08:22 | PN- Housestaff ---
Samira Avila MD,[facility] 04/14/17 0822: Subjective Follow-up For: Acute hypoxic respiratory failure Acute lung injury Severe peripheral vascular disease Right leg gangrene Type 1 diabetes Renal insufficiency Subjective: Patient visited today, was lying in bed comfortably in no acute distress, was more drowsy compared to yesterday but responds to voice. No fever or chills overnight, high flow 70% oxygen in place, no chest pain, no other events. Communicated with Dr Young, patient is on surgery list for today, patient high risk for low risk surgery, according to Dr Young, family aware of the situation that of TMA is done he would need Vanc treatment thourgh PICC line VS BKA that would be a more definite surgery. Again, according to Dr Young family agreed for surgery and the procedure type will be determined dyring evaluation in surgery. Planned for surgery at 5pm, TMA vs BKA will be determined during surgery, may need to transfer to ICU after surgery if needed intubation durign surgery. Review of Systems Constitutional: Reports: see HPI. Objective Last 24 Hrs of Vital Signs/I&O Vital Signs Date Time Temp Pulse Resp B/P B/P Pulse O2 O2 Flow FiO2 Mean Ox Delivery Rate 04/14 0821 98 Nasal 70% Cannula 04/14 0610 97.6 92 18 124/62 94 04/14 0000 90 Nasal 40% Cannula 04/13 2054 97.9 79 18 118/54 97 Nasal 70% Cannula 04/13 1600 Nasal 70% Cannula 04/13 1337 98.7 90 22 136/80 95 Nasal 70% Cannula 04/13 1022 76 132/80 Intake & Output 04/14 1600 04/14 0800 04/14 0000 Intake Total 400 Output Total 600 625 Balance -200 -625 Intake, IV 400 Output, Urine 600 625 Patient 171 lb Weight Physical Exam General Appearance: Cooperative, No Acute Distress, more drowsy compared to yesterday Skin: LE dressing in place Skin Temp/Moisture Exam: Warm/Dry Sepsis Skin Exam (color): Normal for Ethnicity HEENT: Atraumatic, EOMI, Mucous Membr. moist/pink Cardiovascular: Normal S1, Normal S2 Lungs: Clear to Auscultation, scattered crackles, HF o2 supplement in place Abdomen: Soft, No Tenderness Extremities: as noted above Current Medications: Current Medications Sig/Coral Start time Last Medication Dose Route Stop Time Status Admin Acetaminophen 500 MG TID 04/03 1156 AC 04/13 PO 2119 Amlodipine Besylate 5 MG DAILY 04/03 1200 AC 04/13 PO 1022 Aspirin 81 MG DAILY 04/04 1000 AC 04/13 PO 1022 Dextrose/Water 1,000 ML .Q20H 04/09 0815 AC 04/14 IV 0741 Fluticasone 2 SPRAY DAILY 04/03 1155 AC 04/13 Propionate THOMAS 1043 Furosemide 20 MG 7:30 AM, & 4:30 PM 04/11 1430 AC 04/14 IV 0740 Heparin Sodium 5,000 UNIT Q8 04/03 1400 AC 04/14 (Porcine) SC 0650 Insulin Aspart 0 Q4 04/08 1000 AC 04/14 SC 0649 Insulin Detemir 7 UNITS BID 04/14 1000 AC SC Insulin Detemir 6 UNITS BID 04/12 1000 DC 04/13 SC 2119 Metoprolol Succinate 25 MG DAILY 04/03 1714 AC 04/13 PO 1022 Morphine Sulfate 2 MG Q4P PRN 04/04 1845 AC 04/11 IV 0454 Omeprazole 40 MG DAILY AC 04/11 0700 AC 04/14 PO 0650 Povidone Iodine 1 MEHRAN DAILY 04/13 1000 AC 04/13 TOP 1043 Pregabalin 50 MG TID 04/03 1155 AC 04/13 PO 2118 Last 24 Hrs of Lab/[place] Results Last 24 Hrs of Labs/Mics: Laboratory Tests 04/14/17 0650: Anion Gap 12, Estimated GFR > 60, BUN/Creatinine Ratio 35.0 H, PT 12.8 H, INR 1.22 H, APTT 28, CBC w Diff NO MAN DIFF REQ, RBC 3.01 L, MCV 92.7, MCH 30.7, MCHC 33.2, RDW 14.3, MPV 8.8, Gran % 93.0 H, Lymphocytes % 3.9 L, Monocytes % 2.5, Eosinophils % 0.2, Basophils % 0.4, Absolute Granulocytes 11.2 H, Absolute Lymphocytes 0.5 L, Absolute Monocytes 0.3, Absolute Eosinophils 0, Absolute Basophils 0 Assessment/Plan Assessment: Mr Liu is a 71-year-old gentleman with a past medical history of type I diabetes on insulin pump (complicated by neuropathy, retinopathy and nephropathy ), complete heart block status post pacemaker, PVD previous admission to [facility] 2 weeks prior to admission for 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 He was initially admitted on the telemetry service and then subseuquently transferred to the CRCU due to hypoxia and tachycardia. He is admitted in the CRCU and was then transferred to after disscussions of comfort measures. Patient presented with siginficant improvement in mental condition while in floor and accordingly the disscusion of performing surgery was reconsidered. Acute on chronic hypoxemic respiratory failure This was considered multifactorial, including CHF, acute lung injury possibly bilateral aspiration pneumonitis. Patient also received broad spectrum antibiotics and was currently off antibiotics per ID. During the admission in ICU son refused BIPAP placement. - Continues to be on high flow oxygen. - Ok per family to do intubation before surgery Significant Peripharel Vascular Disease Complicated with osteomyelitis and gangrene of foot s/p MRSA OM; Right foot gangrene involving second and third toe. This morning, the patient may be considering amputation. His primary care physician Dr. Adame suggested that he will likely need a BKA instead of the TMA for a better prognostic outcome. Patient is currently thinking about whether to proceed for a procedure vs not. - Pysch and ID on board - Patient does not have capacity to make medical desicion today - family agreed for surgery, TMA vs BKA would be determined during surgery, family aware - NPO for surgery today Type II IN Over the course of the admission, Troponin peaked at 6.64 which was thought be likely due to type 2 IN. No EKG changes s/o IN. Component of volume overload, PRN diuresis while monitoring the serum creatinine closely. Echocardiogram: Left ventricular cavity size at the upper limits of normal. Mild to moderate concentric left ventricular hypertrophy. The inferior and posterior calderon are akinetic. The septum and apex contracts fairly well. Estimated ejection fraction is 35-40%. Catheter/pacemaker wire in the right ventricular cavity. Catheter/pacemaker wire in the right atrial appendage. Mild left atrial dilatation. Moderate thickening/calcification of the mitral valve leaflets. Moderate mitral annular calcification. Mild mitral regurgitation. Focal thickening of the aortic valve cusps. No aortic stenosis. Right ventricular systolic pressure estimated to be elevated at 55- 60 mmHg. Moderate to severe pulmonary hypertension. Left pleural effusion. Dilated IVC. Dr Avery, jewelry repairer on board, resuming Lasix 20 IV BID. Will monitor Cr, and further dosing changes if warranted. PARRIS on CKD Could be related to DM, he also had recent angiogram that could precipitate PARRIS. Appears to be improving. Sr Cr 1.8--> 1. Will continue to monitor. Type 1 Diabetes Complicated with diabetic nephropathy, neuropathy, peripheral vascular disease and retinopathy. Endocrinology on board, appreciate recomendations. - updated insuline dose Skin: Unstageable pressure ulcer noted on right upper buttocks which was present on admission. Continue wound care recommendations. Code: DNR/DNI Problem List: 1. Acute and chronic respiratory failure with hypoxia 2. Peripheral vascular disease 3. Osteomyelitis Pain Ratin Pain Location: None Pain Goal: Pain 4 or less Pain Plan: COntinue current plan Tomorrow's Labs & Rationales: CBC BEP Jeff Haas 04/14/17 1216: Attending MD Review Statement Attending Statement Attending MD Statement: examined this patient, discuss w/resident/PA/INTERIOR PLANT CARETAKER, agreed w/resident/PA/INTERIOR PLANT CARETAKER, discussed with family, reviewed EMR data (avail), discussed with nursing, discussed with case mgmt, reviewed images, amended to note Attending Assessment/Plan: Patient seen/examined bedside. Discussed plan of care with PCP Dr Adame , son Lester. Planned OR intervention as per podiatry Dr Bean. He remains on high flow oxygen. Patient is high risk patient for low risk procedure. Patient/family understands and is agreeable for the procedure. Inform Dr Perez in case he need sarwat-operative monitoring in ICU. Cardiology/pulmonary/podiatry/vascular surgery/ID involved in this complex scenario as multidisplinary approach. Closely monitor patient and call me if any changes.
[2017-04-14 08:26] LABS: PT 12.8 SEC (9.4-12.5); PTT 28 SEC (25-37)
--- NOTE | 2017-04-14 11:37 | PN- Diabetes ---
Assessment/Plan Diabetes Assessment: 70 y/o male, Hx of DM type 1 diagnosed when he was 14 years old. He was on an insulin pump with basal rate running at 0.9 units per hour in the past. His diabetes was complicated by neuropathy, retinopathy, nephropathy. Patient presented to the ED after sustaining an unwitnessed fall. He was admitted for positive troponin with peak troponin of 6.64, ongoing right foot infection and gangrene of 2nd toe and 3rd toe. The procedure for Right LE ? amputation of foot or BKA is scheduled for this afternoon. He is NPO and on D5W at 50 ml/hour. He is on Levemir 6 units twice a day and Novolog coverage every 4 hours. His FSGs were 203, 244, 268, 238 and 315. Plan: 1. increase Levemir to 7 units twice a day; 2. continue the current Novolog coverage every 4 hours; 3. monitor FSGs 4. the target glucose level is between 100 and 200. 5. monitor electrolytes. will follow. Subjective Subjective: He is still confused. Objective Last 24 Hrs of Vital Signs/I&O Vital Signs Date Time Temp Pulse Resp B/P B/P Pulse O2 O2 Flow FiO2 Mean Ox Delivery Rate 04/14 1022 70 142/78 04/14 0821 98 Nasal 70% Cannula 04/14 0610 97.6 92 18 124/62 94 04/14 0000 90 Nasal 40% Cannula 04/13 2054 97.9 79 18 118/54 97 Nasal 70% Cannula 04/13 1600 Nasal 70% Cannula 04/13 1337 98.7 90 22 136/80 95 Nasal 70% Cannula Intake & Output 04/14 1600 04/14 0800 04/14 0000 Intake Total 400 Output Total 600 625 Balance -200 -625 Intake, IV 400 Output, Urine 600 625 Patient 171 lb Weight Findings Pertinent Lab/Fransisco Results: Laboratory Tests 04/14 0650 Chemistry Sodium (137 - 145 mmol/L) 142 Potassium (3.5 - 5.1 mmol/L) 3.9 Chloride (98 - 107 mmol/L) 100 Carbon Dioxide (22 - 30 mmol/L) 30 Anion Gap (5 - 16) 12 BUN (9 - 20 mg/dL) 35 H Creatinine (0.7 - 1.2 mg/dL) 1.0 Estimated GFR (>60 ml/min) > 60 BUN/Creatinine Ratio (7 - 25 %) 35.0 H Coagulation PT (9.4 - 12.5 SEC) 12.8 H INR (0.90 - 1.17) 1.22 H APTT (25 - 37 SEC) 28 Hematology CBC w Diff NO MAN DIFF REQ WBC (4.8 - 10.8 /CUMM) 12.1 H RBC (4.70 - 6.10 /CUMM) 3.01 L Hgb (14.0 - 18.0 G/DL) 9.2 L Hct (42 - 52 %) 27.9 L MCV (80.0 - 94.0 FL) 92.7 MCH (27.0 - 31.0 PG) 30.7 MCHC (33.0 - 37.0 G/DL) 33.2 RDW (11.5 - 14.5 %) 14.3 Plt Count (130 - 400 /CUMM) 503 H MPV (7.4 - 10.4 FL) 8.8 Gran % (42.2 - 75.2 %) 93.0 H Lymphocytes % (20.5 - 51.1 %) 3.9 L Monocytes % (1.7 - 9.3 %) 2.5 Eosinophils % (0 - 5 %) 0.2 Basophils % (0.0 - 2.0 %) 0.4 Absolute Granulocytes (1.4 - 6.5 /CUMM) 11.2 H Absolute Lymphocytes (1.2 - 3.4 /CUMM) 0.5 L Absolute Monocytes (0.10 - 0.60 /CUMM) 0.3 Absolute Eosinophils (0.0 - 0.7 /CUMM) 0 Absolute Basophils (0.0 - 0.2 /CUMM) 0
[2017-04-14 14:42] VITALS: BP 126/68
--- NOTE | 2017-04-14 18:12 | Operative Report ---
Operative/Inv Procedure Report Surgery Date: 04/14/17 Name of Procedure: 1 TMA right foot 2 intraoperative administration of ankle block anesthesia Pre-Operative Diagnosis: 1 gangrene right foot 2 severe peripheral arterial disease Post-Operative Diagnosis: The same Estimated Blood Loss: less than 50ml Surgeon/Seaming Inspector: CARIDAD CAPONE DPM Anesthesia: moderate sedation, block Operative/Procedure Note Note: After obtaining informed consent the patient was brought to the operating room and placed on the operating table in the supine position. The patient isn't securely fastened to the operating table utilizing safety belt. After administration of IV sedation, 10 mL of 0.5% Marcaine plain was infiltrated about the patient's right ankle. The right foot and ankle within scrubbed prepped and draped in usual aseptic manner. Attention directed the right foot, where a large full-thickness chronic was identified with gangrene involving the open wound on the second third digits extending proximally to the midshaft metatarsals. A 15 blade was utilized to develop a dorsal flap in a fishmouth- type orientation dorsally the flap was then elevated off the metatarsal shafts and a sagittal bone saw was utilized to perform a through and through osteotomy of the second third fourth and fifth metatarsals. The plantar flap was then developed in the foot was disarticulated and passed from the operative field. Sent a specimen for pathologic inspection. The base of the first metatarsal was dissected and passed from the operative field. Nipple was then irrigated with 3 L normal sterile saline fissure 50,000 units of bacitracin. The plantar flap was then rotated superiorly and held at its deep side with 2-0 Vicryl. Subtenons tissues reapproximated 3-0 Vicryl skin is reprepped 2-0 nylon and skin herberth. Incision was dressed with Xeroform 4 x 4's Kerlix and Romero wrap. The patient noted tolerate both procedure and anesthesia well and the patient was transported from the operating room to recovery with vital signs stable.
[2017-04-14 19:30] VITALS: BP 130/70
[2017-04-14 20:50] VITALS: BP 125/68
[2017-04-14 22:12] VITALS: BP 118/66
--- NOTE | 2017-04-14 22:34 | RADIOLOGY REPORT ---
EXAMINATION: XR PORTABLE CHEST CLINICAL INFORMATION: Presumptive Dx: acute hypoxic resp failure,acute lung injury, severe PVD Signs Symptoms: increased drowsiness and agitation on high flow oxygen COMPARISON: Chest x-ray 04/09/2017 TECHNIQUE: Portable frontal view of the chest was obtained. 9:28 PM FINDINGS: There is diffuse bilateral airspace disease. Airspace disease is now more consolidated in the right lung pneumonia was present on the exam of 04/09/2017. The left lung airspace disease has improved. There is also decreased pulmonary vascularity since prior exam. Differential diagnosis includes multifocal pneumonia versus pulmonary edema.. There is a moderate volume left pleural effusion now present which is new since prior exam. A cardiogenic etiology would therefore be more likely. No change position of pacemaker leads in right atrium and right ventricle. IMPRESSION: Decreased pulmonary vascular congestion since the exam of 04/09/2017. Improving airspace disease in left lung but worsening consolidation right lung. New left pleural effusion since prior exam. Cardiogenic etiology is suspected.
[2017-04-15 06:28] VITALS: BP 122/70
[2017-04-15 07:36] VITALS: BP 126/70
[2017-04-15 07:53] LABS: ABSOLUTE BASOPHIL COUNT 0.1 /CUMM (0.0-0.2); ABSOLUTE EOSINOPHIL COUNT 0.1 /CUMM (0.0-0.7); ABSOLUTE GRANULOCYTE CT 9.4 /CUMM (1.4-6.5); ABSOLUTE LYMPH COUNT 0.5 /CUMM (1.2-3.4); ABSOLUTE MONOCYTE COUNT 0.4 /CUMM (0.10-0.60); BASOPHIL % 0.5 % (0.0-2.0); EOSINOPHIL % 0.6 % (0-5); HEMATOCRIT 30.2 % (42-52); MEAN CORPUSCULAR HGB 30.7 PG (27.0-31.0); MEAN CORPUSCULAR HGB CONC 33.3 G/DL (33.0-37.0); MEAN CORPUSCULAR VOLUME 92.3 FL (80.0-94.0); MEAN PLATELET VOLUME 8.9 FL (7.4-10.4); PLATELET COUNT 518 /CUMM (130-400); RBC DISTRIBUTION WIDTH 14.3 % (11.5-14.5); RED BLOOD CELL CT 3.27 /CUMM (4.70-6.10); WHITE BLOOD CELL COUNT 10.5 /CUMM (4.8-10.8)
--- NOTE | 2017-04-15 08:25 | PN- Housestaff ---
Samira Avila MD,[facility] 04/15/17 0825: Subjective Follow-up For: Acute hypoxic respiratory failure Acute lung injury Severe peripheral vascular disease Right leg gangrene Type 1 diabetes Renal insufficiency Subjective: Patient visited today, Is POD 1 of TMA with local block, surgery team was informed regarding the need for IV antibiotic with TMA, culture was not sent. Patient was lying in bed in mod respiratory distress, was drowsy, arousable, orientation status could not be evalauted due to being dyspnea. Over night patient was more dyspneic, chest x-ray was done which revealed worsening of right middle lobe consolidation. Patient was still on high flow oxygen. At 7:30 Son was contacted regarding need for possible BIPAP, he confirmed to use BIPAP, code status still DNR/DNI. Respiratory function progressively improved with Lasix. To start BiPAP. Pulmonology/ID were contacted regarding antibiotic treatment. Review of Systems Constitutional: Reports: see HPI. Objective Last 24 Hrs of Vital Signs/I&O Vital Signs Date Time Temp Pulse Resp B/P B/P Pulse O2 O2 Flow FiO2 Mean Ox Delivery Rate 04/15 0820 95 BIPAP 60% 04/15 0820 28 95 BIPAP 60% 04/15 0800 95 Nasal 60% Cannula 04/15 0736 98.0 98 30 126/70 95 Nasal 60% Cannula 04/15 0628 98.2 88 20 122/70 92 04/15 0533 Nasal 60% Cannula 04/15 0321 94 Nasal 60% Cannula 04/15 0000 93 Nasal 60% Cannula 04/14 2225 93 Nasal 60% Cannula 04/14 2212 98.0 96 18 118/66 92 04/14 2049 98.7 97 24 125/68 98 Nasal 60% Cannula 04/140 98.7 97 24 125/68 98 Nasal Cannula 04/14 1956 93 Nasal 60% Cannula 04/14 1930 98.2 96 24 130/70 97 Nasal 60% Cannula 04/14 1600 93 Nasal 60% Cannula 04/14 1552 96 Nasal 60% Cannula 04/14 1442 98.0 86 20 126/68 93 04/14 1159 22 96 Nasal 60% Cannula 04/14 1022 70 142/78 Intake & Output 04/15 1600 04/15 0800 04/15 0000 Intake Total 240 855 Output Total 200 1125 Balance 40 -270 Intake, IV 835 Intake, Oral 240 20 Number 0 Bowel Movements Output, Urine 200 1125 Patient 156 lb Weight Weight Bed scale Measurement Method Physical Exam General Appearance: Cooperative, Moderate Distress, more drwosy, as noted above Skin: right foot s/p TMA Skin Temp/Moisture Exam: Warm/Dry Sepsis Skin Exam (color): Normal for Ethnicity HEENT: Atraumatic, EOMI, Mucous Membr. moist/pink Cardiovascular: Normal S1, Normal S2 Lungs: bilateral crackles, dyspnea Abdomen: Soft, No Tenderness Extremities: right leg s/p TMA, dressing in place, no bleeding Current Medications: Current Medications Sig/Coral Start time Last Medication Dose Route Stop Time Status Admin Acetaminophen 500 MG TID 04/03 1156 AC 04/14 PO 2253 Albuterol Sulfate 3 ML Q4P PRN 04/15 0800 AC 04/15 INH 0755 Amlodipine Besylate 5 MG DAILY 04/03 1200 AC 04/14 PO 1023 Aspirin 81 MG DAILY 04/04 1000 AC 04/13 PO 1022 Dextrose/Water 1,000 ML .Q20H 04/09 0815 DC 04/14 IV 0741 Fentanyl Citrate 100 MCG .STK-MED ONE 04/14 1250 DC IM 04/14 1251 Fluticasone 2 SPRAY DAILY 04/03 1155 AC 04/14 Propionate THOMAS 1024 Furosemide 40 MG .STK-MED ONE 04/14 1821 DC IV 04/14 1822 Furosemide 20 MG 7:30 AM, & 4:30 PM 04/11 1430 AC 04/15 IV 0734 Heparin Sodium 5,000 UNIT Q8 04/03 1400 AC 04/15 (Porcine) SC 0549 Insulin Aspart 0 Q4 04/08 1000 DC 04/14 SC 2306 Insulin Detemir 7 UNITS BID 04/14 1000 AC 04/14 SC 2252 Insulin Human Regular 0 Q6 04/15 1200 UNVr SC Metoprolol Succinate 25 MG DAILY 04/03 1714 AC 04/14 PO 1022 Midazolam HCl 2 MG .STK-MED ONE 04/14 1251 DC IM 04/14 1252 Morphine Sulfate 2 MG Q4P PRN 04/04 1845 AC 04/11 IV 0454 Omeprazole 40 MG DAILY AC 04/11 0700 AC 04/15 PO 0550 Povidone Iodine 1 MEHRAN DAILY 04/13 1000 AC 04/14 TOP 1023 Pregabalin 50 MG TID 04/03 1155 AC 04/14 PO 2251 Last 24 Hrs of Lab/Fransisco Results Last 24 Hrs of Labs/Mics: Laboratory Tests 04/15/17 0633: Anion Gap 10, Estimated GFR > 60, BUN/Creatinine Ratio 28.0 H, CBC w Diff Pending, WBC Pending, RBC Pending, Hgb Pending, Hct Pending, MCV Pending, MCH Pending, MCHC Pending, RDW Pending, Plt Count Pending, MPV Pending, Gran % Pending, Lymphocytes % Pending, Monocytes % Pending, Eosinophils % Pending, Basophils % Pending, Absolute Granulocytes Pending, Absolute Lymphocytes Pending , Absolute Monocytes Pending, Absolute Eosinophils Pending, Absolute Basophils Pending 04/14/17 2155: pH 7.55 H, pCO2 34 L, pO2 68 L, HCO3 29 H, ABG O2 Sat (Measured) 94.0 L, P- 50 (Temp Corrected) N, Carboxyhemoglobin 1.3 L, O2 Concentration % 60%, Temperature 98.7, O2 Delivery Method HFNC AT 40LPM, Phlebotomy Draw Site RIGHT BRACHIAL Assessment/Plan Assessment: Mr Liu is a 71-year-old gentleman with a past medical history of type I diabetes on insulin pump (complicated by neuropathy, retinopathy and nephropathy ), complete heart block status post pacemaker, PVD previous admission to [facility] 2 weeks prior to admission for 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 He was initially admitted on the telemetry service and then subseuquently transferred to the [facility] due to hypoxia and tachycardia. He is admitted in the CRCU and was then transferred to after disscussions of comfort measures. Patient presented with siginficant improvement in mental condition while in floor and accordingly the disscusion of performing surgery was reconsidered. Acute on chronic hypoxemic respiratory failure This was considered multifactorial, including CHF, acute lung injury possibly bilateral aspiration pneumonitis. Patient also received broad spectrum antibiotics and was currently off antibiotics per ID. CXR 04/15/17: worsening of consolidation - Continues to be on high flow oxygen. - start BIPAP - patient still DNI/DNR confirmed with family - consider start antibiotics due to new consolidation (aspiration vs HCAP), follow ID pulm - received extra dose Lasix Significant Peripharel Vascular Disease Complicated with osteomyelitis and gangrene of foot s/p MRSA OM; Right foot gangrene involving second and third toe. This morning, the patient may be considering amputation. His primary care physician Dr. Adame suggested that he will likely need a BKA instead of the TMA for a better prognostic outcome. Patient is currently thinking about whether to proceed for a procedure vs not. - patient is POD1 TMA - Pycoral and ID on board - Patient does not have capacity to make medical desicion, will evaluate daily - will follow cutlure results from surgery (it apeared that there may not be good specimen) Type II MN Over the course of the admission, Troponin peaked at 6.64 which was thought be likely due to type 2 MN. No EKG changes s/o MN. Component of volume overload, PRN diuresis while monitoring the serum creatinine closely. Echocardiogram: Left ventricular cavity size at the upper limits of normal. Mild to moderate concentric left ventricular hypertrophy. The inferior and posterior calderon are akinetic. The septum and apex contracts fairly well. Estimated ejection fraction is 35-40%. Catheter/pacemaker wire in the right ventricular cavity. Catheter/pacemaker wire in the right atrial appendage. Mild left atrial dilatation. Moderate thickening/calcification of the mitral valve leaflets. Moderate mitral annular calcification. Mild mitral regurgitation. Focal thickening of the aortic valve cusps. No aortic stenosis. Right ventricular systolic pressure estimated to be elevated at 55- 60 mmHg. Moderate to severe pulmonary hypertension. Left pleural effusion. Dilated IVC. Dr Avery, hair weaver on board, Will monitor Cr, and further dosing changes if warranted. PARRIS on CKD Could be related to DM, he also had recent angiogram that could precipitate PARRIS. Appears to be improving. Sr Cr 1.8--> 1. Will continue to monitor. Type 1 Diabetes Complicated with diabetic nephropathy, neuropathy, peripheral vascular disease and retinopathy. Endocrinology on board, appreciate recomendations. - updated insuline dose Skin: Unstageable pressure ulcer noted on right upper buttocks which was present on admission. Continue wound care recommendations. Code: DNR/DNI Problem List: 1. Acute and chronic respiratory failure with hypoxia 2. Cellulitis of right foot 3. Osteomyelitis Pain Ratin Pain Location: None Pain Goal: Pain 4 or less Pain Plan: continue current plan Tomorrow's Labs & Rationales: CBC BEP Samina,Manik 04/15/17 1113: Attending MD Review Statement Attending Statement Attending MD Statement: examined this patient, discuss w/resident/PA/TOOL DISPATCHER, agreed w/resident/PA/TOOL DISPATCHER, discussed with family, reviewed EMR data (avail), discussed with nursing, discussed with case mgmt, reviewed images, amended to note Attending Assessment/Plan: Patient seen/examined bedside. S/P Planned OR intervention as per podiatry Dr Bean. He remains on high flow oxygen. Patient is high risk patient for low risk procedure. Patient/family understands and is agreeable for the procedure. Inform Dr Perez in case he need sarwat-operative monitoring in ICU. Patient underwent TMA yesterday evening and developed shortness of breath overnight with need of NIPPV support now. ABG revealed respiratroy alkalosis. Chest xray with right sided inflitrates. EKG with no acute changes. Patient going for CTA rule out pulmonary embolism. Received empiric lovenox. Cardiology/pulmonary/podiatry/vascular surgery/ID involved in this complex scenario as multidisplinary approach. Closely monitor patient and call me if any changes. Discussed plan of care joey MANLEY. DNR/DNI. Family wishes conservative management.
[2017-04-15 08:58] LABS: GRANULOCYTE % 89.6 % (42.2-75.2)
--- NOTE | 2017-04-15 10:35 | PN- Cardiology ---
Subjective Subjective: The patient underwent a right transmetatarsal amputation yesterday which he seemed to tolerate well initially. However he became short of breath postoperatively. He was given some IV Lasix and improved and sent back to the floor. Overnight and this morning he has become more short of breath and has been placed on BiPAP. He is being sent for a CTA to rule out pulmonary embolism as well. His chest x-ray documents right-sided consolidation And there appears to be some degree of vascular congestion as well. He is getting IV Lasix twice daily as well. Objective Vital Signs and I&Os Vital Signs Date Time Temp Pulse Resp B/P B/P Pulse O2 O2 Flow FiO2 Mean Ox Delivery Rate 04/15 0854 98 94 04/15 0820 95 BIPAP 60% 04/15 0820 28 95 BIPAP 60% 04/15 0800 95 Nasal 60% Cannula 04/15 0736 98.0 98 30 126/70 95 Nasal 60% Cannula 04/15 0628 98.2 88 20 122/70 92 04/15 0533 Nasal 60% Cannula 04/15 0321 94 Nasal 60% Cannula 04/15 0000 93 Nasal 60% Cannula 04/14 2225 93 Nasal 60% Cannula 04/14 2212 98.0 96 18 118/66 92 04/14 2050 98.7 97 24 125/68 98 Nasal 60% Cannula 04/14 2050 98.7 97 24 125/68 98 Nasal Cannula 04/14 1956 93 Nasal 60% Cannula 04/14 1930 98.2 96 24 130/70 97 Nasal 60% Cannula 04/14 1600 93 Nasal 60% Cannula 04/14 1552 96 Nasal 60% Cannula 04/14 1442 98.0 86 20 126/68 93 04/14 1159 22 96 Nasal 60% Cannula Intake & Output 04/15 1600 04/15 0800 04/15 0000 04/14 1600 04/14 0800 04/14 0000 Intake Total 240 855 400 400 Output Total 200 1125 375 600 625 Balance 40 -270 25 -200 -625 Intake, IV 835 400 400 Intake, Oral 240 20 0 Number 0 0 Bowel Movements Output, Urine 200 1125 375 600 625 Patient 156 lb 171 lb Weight Weight Bed scale Measurement Method Physical Exam: He is barely responsive on BiPAP. Chest reveals diffuse rhonchi and coarse rales Heart regular rhythm obscured by respiratory noise, no obvious murmurs Extremities status post right transmetatarsal amputation, bandaged. Current Medications: Current Medications Sig/Coral Start time Last Medication Dose Route Stop Time Status Admin Acetaminophen 500 MG TID 04/03 1156 AC 04/14 PO 2253 Albuterol Sulfate 3 ML Q4P PRN 04/15 0800 AC 04/15 INH 0755 Amlodipine Besylate 5 MG DAILY 04/03 1200 AC 04/14 PO 1023 Aspirin 81 MG DAILY 04/04 1000 AC 04/13 PO 1022 Dextrose/Water 1,000 ML .Q20H 04/09 0815 DC 04/14 IV 0741 Enoxaparin Sodium 70 MG BID 04/15 1000 AC 04/15 SC 1010 Fentanyl Citrate 100 MCG .STK-MED ONE 04/14 1250 DC IM 04/14 1251 Fluticasone 2 SPRAY DAILY 04/03 1155 AC 04/14 Propionate THOMAS 1024 Furosemide 40 MG .STK-MED ONE 04/14 1821 DC IV 04/14 1822 Furosemide 20 MG 7:30 AM, & 4:30 PM 04/11 1430 AC 04/15 IV 0734 Heparin Sodium 5,000 UNIT Q8 04/03 1400 DC 04/15 (Porcine) SC 0549 Insulin Aspart 0 Q4 04/08 1000 DC 04/14 SC 2306 Insulin Detemir 7 UNITS BID 04/14 1000 AC 04/14 SC 2252 Insulin Human Regular 0 Q6 04/15 1200 AC SC Metoprolol Succinate 25 MG DAILY 04/03 1714 AC 04/14 PO 1022 Midazolam HCl 2 MG .STK-MED ONE 04/14 1251 DC IM 04/14 1252 Morphine Sulfate 2 MG Q4P PRN 04/04 1845 AC 04/11 IV 0454 Omeprazole 40 MG DAILY AC 04/11 0700 AC 04/15 PO 0550 Povidone Iodine 1 MEHRAN DAILY 04/13 1000 AC 04/14 TOP 1023 Pregabalin 50 MG TID 04/03 1155 AC 04/14 PO 2251 Results Last 48 Hrs of Labs/Mics: Laboratory Tests 04/15/17 0953: Troponin I Pending 04/15/17 0633: Anion Gap 10, Estimated GFR > 60, BUN/Creatinine Ratio 28.0 H, CBC w Diff NO MAN DIFF REQ, RBC 3.27 L, MCV 92.3, MCH 30.7, MCHC 33.3, RDW 14.3, MPV 8.9, Gran % 89.6 H, Lymphocytes % 5.2 L, Monocytes % 4.1, Eosinophils % 0.6, Basophils % 0.5, Absolute Granulocytes 9.4 H, Absolute Lymphocytes 0.5 L, Absolute Monocytes 0.4, Absolute Eosinophils 0.1, Absolute Basophils 0.1 04/14/175: pH 7.55 H, pCO2 34 L, pO2 68 L, HCO3 29 H, ABG O2 Sat (Measured) 94.0 L, P- 50 (Temp Corrected) N, Carboxyhemoglobin 1.3 L, O2 Concentration % 60%, Temperature 98.7, O2 Delivery Method HFNC AT 40LPM, Phlebotomy Draw Site RIGHT BRACHIAL 04/14/17 0650: Anion Gap 12, Estimated GFR > 60, BUN/Creatinine Ratio 35.0 H, PT 12.8 H, INR 1.22 H, APTT 28, CBC w Diff NO MAN DIFF REQ, RBC 3.01 L, MCV 92.7, MCH 30.7, MCHC 33.2, RDW 14.3, MPV 8.8, Gran % 93.0 H, Lymphocytes % 3.9 L, Monocytes % 2.5, Eosinophils % 0.2, Basophils % 0.4, Absolute Granulocytes 11.2 H, Absolute Lymphocytes 0.5 L, Absolute Monocytes 0.3, Absolute Eosinophils 0, Absolute Basophils 0 Recent Imaging Studies: PATIENT: JIM WASSERMAN PRESENT AGE: 71 PATIENT ACCOUNT NO: [id number] : 47 LOCATION: [facility] ORDERING PHYSICIAN: Jo Mcginnis MD SERVICE DATE: 04/14/17 EXAM TYPE: RAD - XRY-PORTABLE CHEST XRAY EXAMINATION: XR PORTABLE CHEST CLINICAL INFORMATION: Presumptive Dx: acute hypoxic resp failure,acute lung injury, severe PVD Signs Symptoms: increased drowsiness and agitation on high flow oxygen COMPARISON: Chest x-ray 04/09/2017 TECHNIQUE: Portable frontal view of the chest was obtained. 9:28 PM FINDINGS: There is diffuse bilateral airspace disease. Airspace disease is now more consolidated in the right lung pneumonia was present on the exam of 04/09/2017. The left lung airspace disease has improved. There is also decreased pulmonary vascularity since prior exam. Differential diagnosis includes multifocal pneumonia versus pulmonary edema.. There is a moderate volume left pleural effusion now present which is new since prior exam. A cardiogenic etiology would therefore be more likely. No change position of pacemaker leads in right atrium and right ventricle. IMPRESSION: Decreased pulmonary vascular congestion since the exam of 04/09/2017. Improving airspace disease in left lung but worsening consolidation right lung. New left pleural effusion since prior exam. Cardiogenic etiology is suspected. DICTATED BY: Marcin Rodriguez MD DATE/TIME DICTATED:04/14/172219 TRAINING AND DEVELOPMENT REP:INES DATE/TIME TRANSCRIBED:04/14/172219 CONFIDENTIAL, DO NOT COPY WITHOUT APPROPRIATE AUTHORIZATION. <Electronically signed in Other Vendor System> SIGNED BY: Marcin Rodriguez MD 04/14/172233 Assessment/Plan Assessment/Plan The patient's respiratory status has worsened. This is probably a combination of fluid overload and pneumonia. Pulmonary embolism is to be ruled out. Currently he is back to DNR/DNI status and off of comfort measures. The family is following closely and will make appropriate decisions as he progresses or deteriorates. From a cardiac standpoint I would continue IV diuretics and aim to get negative fluid balance. Continue telemetry? Not applicable
[2017-04-15 10:42] VITALS: BP 116/72
--- NOTE | 2017-04-15 11:55 | PN- Infect Dx ---
Subjective Subjective: Afebrile. He has developed increased respiratory distress overnight, now on BiPAP. Objective Last 24 Hrs of Vital Signs/I&O Vital Signs Date Time Temp Pulse Resp B/P B/P Pulse O2 O2 Flow FiO2 Mean Ox Delivery Rate 04/15 1136 98 98 04/15 1042 99.0 100 22 116/72 99 BIPAP 60% 04/15 0854 98 94 04/15 0820 95 BIPAP 60% 04/15 0820 28 95 BIPAP 60% 04/15 0800 95 Nasal 60% Cannula 04/15 0736 98.0 98 30 126/70 95 Nasal 60% Cannula 04/15 0628 98.2 88 20 122/70 92 04/15 0533 Nasal 60% Cannula 04/15 0321 94 Nasal 60% Cannula 04/15 0000 93 Nasal 60% Cannula 04/14 2225 93 Nasal 60% Cannula 04/14 2212 98.0 96 18 118/66 92 04/14 2050 98.7 97 24 125/68 98 Nasal 60% Cannula 04/14 2050 98.7 97 24 125/68 98 Nasal Cannula 04/14 1956 93 Nasal 60% Cannula 04/14 1930 98.2 96 24 130/70 97 Nasal 60% Cannula 04/14 1600 93 Nasal 60% Cannula 04/14 1552 96 Nasal 60% Cannula 04/14 1442 98.0 86 20 126/68 93 04/14 1159 22 96 Nasal 60% Cannula Intake & Output 04/15 1600 04/15 0800 04/15 0000 Intake Total 240 855 Output Total 200 1125 Balance 40 -270 Intake, IV 835 Intake, Oral 240 20 Number 0 Bowel Movements Output, Urine 200 1125 Patient 156 lb Weight Weight Bed scale Measurement Method Physical Exam Other Physical Findings: He is lethargic but responsive on BiPAP Lungs bilateral rhonchi Heart regular rhythm with no murmur Extremities right foot dressing intact; left foot with evidence of atheroemboli and with a left heel ecchymosis Results Last 24 Hours of Lab Results: Laboratory Tests 04/15 04/15 0953 0633 Chemistry Sodium (137 - 145 mmol/L) 142 Potassium (3.5 - 5.1 mmol/L) 4.0 Chloride (98 - 107 mmol/L) 99 Carbon Dioxide (22 - 30 mmol/L) 33 H Anion Gap (5 - 16) 10 BUN (9 - 20 mg/dL) 28 H Creatinine (0.7 - 1.2 mg/dL) 1.0 Estimated GFR (>60 ml/min) > 60 BUN/Creatinine Ratio (7 - 25 %) 28.0 H Troponin I Pending Ogv-[id number]-Qjkukwauwpr Pept Pending Hematology CBC w Diff NO MAN DIFF REQ WBC (4.8 - 10.8 /CUMM) 10.5 RBC (4.70 - 6.10 /CUMM) 3.27 L Hgb (14.0 - 18.0 G/DL) 10.1 L Hct (42 - 52 %) 30.2 L MCV (80.0 - 94.0 FL) 92.3 MCH (27.0 - 31.0 PG) 30.7 MCHC (33.0 - 37.0 G/DL) 33.3 RDW (11.5 - 14.5 %) 14.3 Plt Count (130 - 400 /CUMM) 518 H MPV (7.4 - 10.4 FL) 8.9 Gran % (42.2 - 75.2 %) 89.6 H Lymphocytes % (20.5 - 51.1 %) 5.2 L Monocytes % (1.7 - 9.3 %) 4.1 Eosinophils % (0 - 5 %) 0.6 Basophils % (0.0 - 2.0 %) 0.5 Absolute Granulocytes (1.4 - 6.5 /CUMM) 9.4 H Absolute Lymphocytes (1.2 - 3.4 /CUMM) 0.5 L Absolute Monocytes (0.10 - 0.60 /CUMM) 0.4 Absolute Eosinophils (0.0 - 0.7 /CUMM) 0.1 Absolute Basophils (0.0 - 0.2 /CUMM) 0.1 04/14 2154 Blood Gas pH (7.35 - 7.45 PH) 7.55 H pCO2 (35 - 45 TORR) 34 L pO2 (80 - 100 TORR) 68 L HCO3 (21 - 28 MEQ/L) 29 H ABG O2 Sat (Measured) (>96.0 %) 94.0 L P-50 (Temp Corrected) N Carboxyhemoglobin (1.5 - 5.0 %) 1.3 L O2 Concentration % 60% Temperature (97.0 - 100.0 FARH) 98.7 O2 Delivery Method HFNC AT 40LPM Miscellaneous Phlebotomy Draw Site RIGHT BRACHIAL Last 24 Hours of [place] Results: No new cultures Recent Imaging Studies: Chest x-ray April 14 reveals diffuse bilateral airspace disease, with increased density in the right lower lobe and a new left pleural effusion Assessment/Plan ID Impression: Condition has further deteriorated, now with increased respiratory distress, possibly secondary to fluid overload, with his chest x-ray felt to represent pulmonary congestion rather than pneumonia and with his temperatures and white blood cell count remaining normal off antibiotics. He did undergo a right TMA yesterday and he may benefit from resumption of antibiotics for at least a residual soft tissue infection per Podiatry, but he is not felt to have any residual osteomyelitis. Of note no OR cultures were submitted; therefore his antibiotics will need to be targeted towards the MRSA that was isolated from his previous OR culture. Suggestion: 1. Further evaluation/management of his respiratory failure/CHF per Cardiology and Medicine 2. Attempt to obtain a sputum culture 3. Would obtain a postop baseline x-ray of the right foot 4. Begin Vancomycin 1 g IV every 24 hours
--- NOTE | 2017-04-15 12:02 | PN- Diabetes ---
Assessment/Plan Diabetes Assessment: 70 y/o male, Hx of DM type 1 diagnosed when he was 14 years old. He was on an insulin pump with basal rate running at 0.9 units per hour in the past. His diabetes was complicated by neuropathy, retinopathy, nephropathy. Patient presented to the ED after sustaining an unwitnessed fall. He was admitted for positive troponin with peak troponin of 6.64, ongoing right foot infection and gangrene of 2nd toe and 3rd toe. The procedure for amputation of foot was done on 04/14/2017. He is NPO. D5W at 50 ml/hour was discontinued due to respiratory distress. He received several doses of lasix. He is on Levemir 7 units twice a day and RISS every 6 hours. His FSGs were 194, 133 and 101. Plan: 1. decrease Levemir to 5 units twice a day; 2. adjust RISS--detail see the inpatient DM order; 3. monitor FSGs; 4. repeat electrolytes later today will follow. Inpatient Diabetes Orders Every 6 Hours: Bolus Insulin: regular insulin < 80 mg/dl: no coverage 80-100 mg/dl: no coverage 101-120 mg/dl: no coverage 121-150 mg/dl: no coverage 151-200 mg/dl: 2 units 201-250 mg/dl: 3 units 251-300 mg/dl: 4 units 301-350 mg/dl: 5 units 351-400 mg/dl: 6 units > 400 mg/dl: inform MD Subjective Subjective: He is lethargic. Objective Last 24 Hrs of Vital Signs/I&O Vital Signs Date Time Temp Pulse Resp B/P B/P Pulse O2 O2 Flow FiO2 Mean Ox Delivery Rate 04/15 1136 98 98 04/15 1042 99.0 100 22 116/72 99 BIPAP 60% 04/15 0854 98 94 04/15 0820 95 BIPAP 60% 04/15 0820 28 95 BIPAP 60% 04/15 0800 95 Nasal 60% Cannula 04/15 0736 98.0 98 30 126/70 95 Nasal 60% Cannula 04/15 0628 98.2 88 20 122/70 92 04/15 0533 Nasal 60% Cannula 04/15 0321 94 Nasal 60% Cannula 04/15 0000 93 Nasal 60% Cannula 04/145 93 Nasal 60% Cannula 04/14 2211 98.0 96 18 118/66 92 04/14 2049 98.7 97 24 125/68 98 Nasal 60% Cannula 04/14 2049 98.7 97 24 125/68 98 Nasal Cannula 04/14 1956 93 Nasal 60% Cannula 04/14 1930 98.2 96 24 130/70 97 Nasal 60% Cannula 04/14 1600 93 Nasal 60% Cannula 04/14 1552 96 Nasal 60% Cannula 04/14 1442 98.0 86 20 126/68 93 Intake & Output 04/15 1600 04/15 0800 04/15 0000 Intake Total 240 855 Output Total 200 1125 Balance 40 -270 Intake, IV 835 Intake, Oral 240 20 Number 0 Bowel Movements Output, Urine 200 1125 Patient 156 lb Weight Weight Bed scale Measurement Method Findings Pertinent Lab/[place] Results: Laboratory Tests 04/15 04/15 0953 0633 Chemistry Sodium (137 - 145 mmol/L) 142 Potassium (3.5 - 5.1 mmol/L) 4.0 Chloride (98 - 107 mmol/L) 99 Carbon Dioxide (22 - 30 mmol/L) 33 H Anion Gap (5 - 16) 10 BUN (9 - 20 mg/dL) 28 H Creatinine (0.7 - 1.2 mg/dL) 1.0 Estimated GFR (>60 ml/min) > 60 BUN/Creatinine Ratio (7 - 25 %) 28.0 H Troponin I (<0.11 ng/ml) 0.13 *H [id number] Pept (<125 pg/mL) 09119 H Hematology CBC w Diff NO MAN DIFF REQ WBC (4.8 - 10.8 /CUMM) 10.5 RBC (4.70 - 6.10 /CUMM) 3.27 L Hgb (14.0 - 18.0 G/DL) 10.1 L Hct (42 - 52 %) 30.2 L MCV (80.0 - 94.0 FL) 92.3 MCH (27.0 - 31.0 PG) 30.7 MCHC (33.0 - 37.0 G/DL) 33.3 RDW (11.5 - 14.5 %) 14.3 Plt Count (130 - 400 /CUMM) 518 H MPV (7.4 - 10.4 FL) 8.9 Gran % (42.2 - 75.2 %) 89.6 H Lymphocytes % (20.5 - 51.1 %) 5.2 L Monocytes % (1.7 - 9.3 %) 4.1 Eosinophils % (0 - 5 %) 0.6 Basophils % (0.0 - 2.0 %) 0.5 Absolute Granulocytes (1.4 - 6.5 /CUMM) 9.4 H Absolute Lymphocytes (1.2 - 3.4 /CUMM) 0.5 L Absolute Monocytes (0.10 - 0.60 /CUMM) 0.4 Absolute Eosinophils (0.0 - 0.7 /CUMM) 0.1 Absolute Basophils (0.0 - 0.2 /CUMM) 0.1 04/14 2154 Blood Gas pH (7.35 - 7.45 PH) 7.55 H pCO2 (35 - 45 TORR) 34 L pO2 (80 - 100 TORR) 68 L HCO3 (21 - 28 MEQ/L) 29 H ABG O2 Sat (Measured) (>96.0 %) 94.0 L P-50 (Temp Corrected) N Carboxyhemoglobin (1.5 - 5.0 %) 1.3 L O2 Concentration % 60% Temperature (97.0 - 100.0 FARH) 98.7 O2 Delivery Method HFNC AT 40LPM Miscellaneous Phlebotomy Draw Site RIGHT BRACHIAL
--- NOTE | 2017-04-15 12:19 | CT SCAN REPORT ---
EXAMINATION: CT ANGIOGRAM OF THE CHEST WITH AND WITHOUT CONTRAST (CT PULMONARY ANGIOGRAM FOR PE) CLINICAL INFORMATION: Suspected pulmonary embolism. Worsening dyspnea. COMPARISON: Chest radiograph 04/14/2017. TECHNIQUE: Prior to contrast administration, noncontrast localization images were obtained. Subsequently, multidetector volumetric imaging was performed from the thoracic inlet to below the diaphragms following the administration of 98 mL Optiray 320 intravenous contrast. No contrast reaction reported. Sagittal, coronal, and MIP oblique sagittal reformatted images were obtained on the CT workstation, uploaded to PACS, and reviewed. Total exam dose-length product 584.68 mGy-cm. FINDINGS: The timing of the contrast injection provides adequate opacification of the pulmonary arterial vasculature. There is no central luminal filling defect to suggest the presence of an acute pulmonary embolism. There are interstitial and alveolar opacities with a perihilar predominant distribution and a moderately sized bilateral pleural effusions with associated compressive atelectasis of the lower lobes. No pneumothorax. The heart size is at upper limits of normal size. No pericardial effusion. There is a chronic compression fracture of the T12 vertebral body with impaction of the upper endplate resulting in 25% vertebral body height loss anteriorly. No acute osseous finding. Specifically no worrisome lytic or blastic osseous lesion. IMPRESSION: No evidence of acute pulmonary embolism. There are interstitial and alveolar opacities involving both lungs with a perihilar predominant distribution and there are moderately sized bilateral pleural effusions. These findings most likely represent a manifestation of pulmonary edema. The possibility of superimposed pneumonia cannot be definitively excluded on the basis of this examination. VTE: Negative.
[2017-04-15 12:21] VITALS: BP 114/70
[2017-04-15 13:39] VITALS: BP 124/72
--- NOTE | 2017-04-15 13:49 | PN- Pulmonary ---
Subjective HPI/Critical Care Issues: Doing poorly Needed Bipap Cxr sugg of pulm edema and effusion Did get a CTA not sure why Objective Current Medications: Current Medications Sig/Coral Start time Last Medication Dose Route Stop Time Status Admin Acetaminophen 500 MG TID 04/03 1156 AC 04/14 PO 2253 Albuterol Sulfate 3 ML Q4P PRN 04/15 0800 AC 04/15 INH 0755 Amlodipine Besylate 5 MG DAILY 04/03 1200 AC 04/14 PO 1023 Aspirin 81 MG DAILY 04/04 1000 AC 04/13 PO 1022 Dextrose/Water 1,000 ML .Q20H 04/09 0815 DC 04/14 IV 0741 Enoxaparin Sodium 70 MG BID 04/15 1000 AC 04/15 SC 1010 Fluticasone 2 SPRAY DAILY 04/03 1155 AC 04/14 Propionate THOMAS 1024 Furosemide 40 MG 7:30 AM, & 4:30 PM 04/15 1630 AC IV Furosemide 20 MG ONCE ONE 04/15 1045 DC 04/15 IV 04/15 1046 1048 Furosemide 40 MG .STK-MED ONE 04/14 1821 DC IV 04/14 1822 Furosemide 20 MG 7:30 AM, & 4:30 PM 04/11 1430 DC 04/15 IV 0734 Heparin Sodium 5,000 UNIT Q8 04/03 1400 DC 04/15 (Porcine) SC 0549 Insulin Aspart 0 Q4 04/08 1000 DC 04/14 SC 2306 Insulin Detemir 5 UNITS BID 04/15 2200 AC SC Insulin Detemir 7 UNITS BID 04/14 1000 DC 04/14 SC 2252 Insulin Human Regular 0 Q6 04/15 1200 AC SC Metoprolol Succinate 25 MG DAILY 04/03 1714 AC 04/14 PO 1022 Morphine Sulfate 2 MG Q4P PRN 04/04 1845 AC 04/11 IV 0454 Omeprazole 40 MG DAILY AC 04/11 0700 AC 04/15 PO 0550 Povidone Iodine 1 MEHRAN DAILY 04/13 1000 AC 04/15 TOP 1152 Pregabalin 50 MG TID 04/03 1155 AC 04/14 PO 2251 Vital Signs & I&O Last 24 Hrs of Vitals and I&O: Vital Signs Date Time Temp Pulse Resp B/P B/P Pulse O2 O2 Flow FiO2 Mean Ox Delivery Rate 04/15 1339 99.2 95 20 124/72 100 BIPAP 60% 04/15 1221 98.9 90 22 114/70 95 BIPAP 60% 04/15 1136 98 98 04/15 1042 99.0 100 22 116/72 99 BIPAP 60% 04/15 0854 98 94 04/15 0820 95 BIPAP 60% 04/15 0820 28 95 BIPAP 60% 04/15 0800 95 Nasal 60% Cannula 04/15 0736 98.0 98 30 126/70 95 Nasal 60% Cannula 04/15 0628 98.2 88 20 122/70 92 04/15 0533 Nasal 60% Cannula 04/15 0321 94 Nasal 60% Cannula 04/15 0000 93 Nasal 60% Cannula 04/14 2225 93 Nasal 60% Cannula 04/14 2212 98.0 96 18 118/66 92 04/14 205 98.7 97 24 125/68 98 Nasal 60% Cannula 04/14 2049 98.7 97 24 125/68 98 Nasal Cannula 04/14 1956 93 Nasal 60% Cannula 04/14 1930 98.2 96 24 130/70 97 Nasal 60% Cannula 04/14 1600 93 Nasal 60% Cannula 04/14 1552 96 Nasal 60% Cannula 04/14 1442 98.0 86 20 126/68 93 Intake & Output 04/15 1600 04/15 0800 04/15 0000 Intake Total 240 855 Output Total 221 981 8862 Balance -600 40 -270 Intake, IV 835 Intake, Oral 240 20 Number 0 Bowel Movements Output, Urine 610 183 1307 Patient 156 lb Weight Weight Bed scale Measurement Method Impression/Plan Impression/Plan Impression/Plan: on BIPAP Lungs rhonchi and scattered crackles on the right, much improved from yesterday Heart regular rhythm with no murmur Abdomen is soft, nontender with positive bowel sounds Extremities necrotic right second and third toes; left foot petechial/ purpuric rash Jewell catheter is in place IMPRESSION This is a gentleman with diabetes type 1 with multiple complications including neuropathy, significant peripheral vascular disease, previous pacemaker far heart block, 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 Infectious disease, podiatry and vascular surgery is following pt s/p TMA rt foot * Type 1 diabetes with multiple organ dysfunction including diabetic nephropathy , neuropathy, peripheral vascular disease and retinopathy. * CKD with renal insufficiency since admission most likely related to combination of factors including his underlying diabetic kidney disease. Now has creat which is stable. Pt did get CTA however this morning * Reduced ejection fraction with EF of 35-40% with abnormal diastolic dysfunction which appears to be chronic * Severe peripheral vascular disease with dry gangrene of the left foot s/p tma Recommendation COnt BIPAP prn and change to high flow when able Hold abx COnt diuresis lasix 40 q 12 Watch renal function especially as he has had contrast Cont anticoag and if he goes into renal insuff in am needs lovenox to be changed to heparin If creat goes up needs a jewell as he needs to be st cathed Cont to monitor glucose Keep his head of bed elevated Cont to monitor Glucose and rx with insulin DNR and DNI Discussed with the family
--- NOTE | 2017-04-15 18:39 | Event Note ---
Event Note Event Note: Patient had increased troponins in the a.m.. Resident Saravanan Laurent meeting with family including son who is the POA, and pt's regarding whether or not to continue care in [facility] floor despite increased TN. Family was well explained about the risk of treating him on gen med floor and that not pursuing further cardiology care and attention would be blow the standard of care, hermelinda in the setting of elevated troponin which could be due to type II PR/demand ischemia, or even ACS. Family understood the situation, treatment options and was thinking in lines of comfort measures for tomorrow and for the time being, he (pt's son) told me to keep him in gen med floor and manage him symptomatically for now and that they would discuss and decide on his golas of care again tomorrow. Attending and ingot buggy operator also notified about the discussion and plans.
[2017-04-15 21:43] VITALS: BP 128/62
--- NOTE | 2017-04-15 23:25 | RADIOLOGY REPORT ---
EXAMINATION: XR FOOT, RIGHT CLINICAL INFORMATION: Transmetatarsal amputation for gangrenous foot. COMPARISON: 04/03/2017 TECHNIQUE: AP, lateral, and oblique views of the right foot. FINDINGS: The patient is status post transmetatarsal amputation at the second through fifth digits. Amputation of the first digit at the tarsometatarsal joint. No acute erosions seen. Soft tissue swelling at the stump. Diffuse vascular calcifications are noted. There may be a small amount of gas in the soft tissues medially. This is likely postsurgical in nature. IMPRESSION: Status post transmetatarsal amputation. No acute erosions seen. Soft tissue swelling at the stump.
[2017-04-16 06:00] VITALS: BP 124/62
--- NOTE | 2017-04-16 07:30 | PN- Housestaff ---
Samira Avila MD,[facility] 04/16/17 0729: Subjective Follow-up For: Acute hypoxic respiratory failure Acute lung injury Severe peripheral vascular disease Right leg gangrene Type 1 diabetes Renal insufficiency Subjective: Patient visited today, was lying in bed comfortably in no acute distress, significant improvement compared to yesterday, was alert and oriented. No fever or chills, high flow oxygen in place, no chest pain, no other events. Patient failed swallow evaluation this a.m., currently nothing by mouth, family requested to continue comfort feeding. We'll obtain an x-ray and if any improvement we will decrease Lasix dose. Review of Systems Constitutional: Reports: see HPI. Objective Last 24 Hrs of Vital Signs/I&O Vital Signs Date Time Temp Pulse Resp B/P B/P Pulse O2 O2 Flow FiO2 Mean Ox Delivery Rate 04/16 1352 98.4 85 20 138/88 97 Nasal 50% Cannula 04/16 1026 97 Nasal 50% Cannula 04/16 0924 Nasal 50% Cannula 04/16 0845 22 97 Nasal 50% Cannula 04/16 0844 22 100 Nasal 60% Cannula 04/16 0800 99 Nasal 60% Cannula 04/16 0600 97.6 74 20 124/62 100 04/16 0151 98 Nasal 60% Cannula 04/16 0000 99 60% 04/15 2237 93 Nasal 60% Cannula 04/15 2143 97.9 86 20 128/62 99 Nasal 60% Cannula 04/15 1919 93 Nasal 60% Cannula 04/15 1610 94 Nasal 60% Cannula 04/15 1600 95 Nasal 60% Cannula 04/15 1418 22 95 Nasal 60% Cannula Intake & Output 04/16 1600 04/16 0800 04/16 0000 Intake Total 0 400 Output Total 1200 900 Balance -1200 -500 Intake, IV 0 280 Intake, Oral 0 120 Number 0 Bowel Movements Output, Urine 1200 900 Patient 165 lb Weight Physical Exam General Appearance: Alert, Oriented X3, Cooperative, No Acute Distress, Improved Skin Temp/Moisture Exam: Warm/Dry Sepsis Skin Exam (color): Normal for Ethnicity Cardiovascular: Normal S1, Normal S2 Lungs: Clear to Auscultation Abdomen: Soft, No Tenderness Neurological: Normal Speech Extremities: Right TMA, dressing in place Current Medications: Current Medications Sig/Coral Start time Last Medication Dose Route Stop Time Status Admin Acetaminophen 500 MG TID 04/03 1156 AC 04/15 PO 2123 Albuterol Sulfate 3 ML Q4P PRN 04/15 0800 AC 04/15 INH 0755 Amlodipine Besylate 5 MG DAILY 04/03 1200 AC 04/14 PO 1023 Aspirin 81 MG DAILY 04/04 1000 AC 04/13 PO 1022 Dextrose/Sodium 1,000 ML Q20H 04/16 1230 AC 04/16 Chloride IV 1354 Enoxaparin Sodium 70 MG BID 04/15 1000 DC 04/15 SC 1010 Fluticasone 2 SPRAY DAILY 04/03 1155 AC 04/14 Propionate THOMAS 1024 Furosemide 40 MG DAILY 04/16 1000 AC 04/16 IV 1025 Furosemide 40 MG Q12 04/15 2200 DC 04/15 IV 2123 Heparin Sodium 5,000 UNIT Q8 04/15 2200 AC 04/16 (Porcine) SC 1353 Insulin Aspart 0 Q4 04/16 1000 AC 04/16 SC 1353 Insulin Detemir 5 UNITS BID 04/15 2200 AC 04/15 SC 2122 Insulin Human Regular 5 UNITS .STK-MED ONE 04/16 0052 DC IV 04/16 0053 Insulin Human Regular 0 Q6 04/15 1200 DC 04/16 SC 0054 Metoprolol Succinate 25 MG DAILY 04/03 1714 AC 04/14 PO 1022 Morphine Sulfate 2 MG Q4P PRN 04/04 1845 AC 04/11 IV 0454 Omeprazole 40 MG DAILY AC 04/11 0700 AC 04/15 PO 0550 Povidone Iodine 1 MEHRAN DAILY 04/13 1000 AC 04/16 TOP 1025 Pregabalin 50 MG TID 04/03 1155 AC 04/15 PO 2123 Vancomycin HCl 1,000 MG 1600 04/16 1600 AC Dextrose/Water 250 ML IV Vancomycin HCl 1,000 MG DAILY 04/15 1415 DC 04/15 Dextrose/Water 250 ML IV 1536 Last 24 Hrs of Lab/Fransisco Results Last 24 Hrs of Labs/Mics: Laboratory Tests 04/16/17 0915: ESR Westergren 93 H 04/16/17 0604: Anion Gap 6, Estimated GFR > 60, BUN/Creatinine Ratio 30.0 H, CBC w Diff NO MAN DIFF REQ, RBC 2.76 L, MCV 91.9, MCH 30.4, MCHC 33.0, RDW 14.4, MPV 8.5, Gran % 81.0 H, Lymphocytes % 9.5 L, Monocytes % 6.2, Eosinophils % 2.1, Basophils % 1.2, Absolute Granulocytes 7.7 H, Absolute Lymphocytes 0.9 L, Absolute Monocytes 0.6, Absolute Eosinophils 0.2, Absolute Basophils 0.1 04/16/17 0000: Troponin I 0.12 *H 04/15/17 1650: Anion Gap 13, Estimated GFR > 60, BUN/Creatinine Ratio 28.2 H, Troponin I 0.14 *H Assessment/Plan Assessment: Mr Liu is a 71-year-old gentleman with a past medical history of type I diabetes on insulin pump (complicated by neuropathy, retinopathy and nephropathy ), complete heart block status post pacemaker, PVD previous admission to [facility] 2 weeks prior to admission for 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 He was initially admitted on the telemetry service and then subseuquently transferred to the CRCU due to hypoxia and tachycardia. He is admitted in the CRCU and was then transferred to after disscussions of comfort measures. Patient presented with siginficant improvement in mental condition while in [facility] floor and accordingly the disscusion of performing surgery was reconsidered. Acute on chronic hypoxemic respiratory failure This was considered multifactorial, including CHF, acute lung injury possibly bilateral aspiration pneumonitis. Patient also received broad spectrum antibiotics and was currently off antibiotics per ID. CXR 04/15/17: worsening of consolidation - Continues to be on high flow oxygen, plan to - patient still DNI/DNR confirmed with family - consider start antibiotics due to new consolidation (aspiration vs HCAP), follow ID pulm - received extra dose Lasix - CXR today, depending on result will decrease Lasix Significant Peripharel Vascular Disease Complicated with osteomyelitis and gangrene of foot s/p MRSA OM; Right foot gangrene involving second and third toe. This morning, the patient may be considering amputation. His primary care physician Dr. Adame suggested that he will likely need a BKA instead of the TMA for a better prognostic outcome. Patient is currently thinking about whether to proceed for a procedure vs not. - patient s/p TMA - Pysch and ID on board - Patient does not have capacity to make medical desicion, will evaluate daily - will follow cutlure results from surgery (it apeared that there may not be good specimen) - Continue vanc per ID - Consider PICC line placement Type II ND Over the course of the admission, Troponin peaked at 6.64 which was thought be likely due to type 2 ND. No EKG changes s/o ND. Component of volume overload, PRN diuresis while monitoring the serum creatinine closely. Echocardiogram: Left ventricular cavity size at the upper limits of normal. Mild to moderate concentric left ventricular hypertrophy. The inferior and posterior calderon are akinetic. The septum and apex contracts fairly well. Estimated ejection fraction is 35-40%. Catheter/pacemaker wire in the right ventricular cavity. Catheter/pacemaker wire in the right atrial appendage. Mild left atrial dilatation. Moderate thickening/calcification of the mitral valve leaflets. Moderate mitral annular calcification. Mild mitral regurgitation. Focal thickening of the aortic valve cusps. No aortic stenosis. Right ventricular systolic pressure estimated to be elevated at 55- 60 mmHg. Moderate to severe pulmonary hypertension. Left pleural effusion. Dilated IVC. Dr Avery, back joiner on board, Will monitor Cr, and further dosing changes if warranted. PARRIS on CKD Could be related to DM, he also had recent angiogram that could precipitate PARRIS. Appears to be improving. Sr Cr 1.8--> 1.1. Will continue to monitor. Type 1 Diabetes Complicated with diabetic nephropathy, neuropathy, peripheral vascular disease and retinopathy. Endocrinology on board, appreciate recomendations. - updated insuline dose Skin: Unstageable pressure ulcer noted on right upper buttocks which was present on admission. Continue wound care recommendations. Code: DNR/DNI NPO, comfort feeding DVT PPx: Heparin Problem List: 1. Acute and chronic respiratory failure with hypoxia 2. Osteomyelitis Pain Ratin Pain Location: None due to neuropathy Pain Goal: Pain 4 or less Pain Plan: Continue current plan Tomorrow's Labs & Rationales: CBc GARCIA Jeff Haas 04/16/17 1248: Attending MD Review Statement Attending Statement Attending MD Statement: examined this patient, discuss w/resident/PA/PRUNER, agreed w/resident/PA/PRUNER, discussed with family, reviewed EMR data (avail), discussed with nursing, discussed with case mgmt, reviewed images, amended to note Attending Assessment/Plan: Patient seen/examined bedside. Patient failed speech/swallow , discussed with son who agrees to comfort feeding for now despite risks of aspiration. No feeding tube. Patient underwent TMA, episode of respiratroy failure with pulmonary edema resolving with iv diuretics. CTA negative for PE. Cardiac enzymes flat. Remains on high flow oxygen. Remains on iv vanco as per ID. Abx as per ID. Cardiology/pulmonary/podiatry/vascular surgery/ID involved in this complex scenario as multidisplinary approach. Closely monitor patient and call me if any changes. Discussed plan of care joey MANLEY. DNR/DNI. Family wishes conservative management.
[2017-04-16 08:05] LABS: ABSOLUTE BASOPHIL COUNT 0.1 /CUMM (0.0-0.2); ABSOLUTE EOSINOPHIL COUNT 0.2 /CUMM (0.0-0.7); ABSOLUTE GRANULOCYTE CT 7.7 /CUMM (1.4-6.5); ABSOLUTE LYMPH COUNT 0.9 /CUMM (1.2-3.4); ABSOLUTE MONOCYTE COUNT 0.6 /CUMM (0.10-0.60); BASOPHIL % 1.2 % (0.0-2.0); EOSINOPHIL % 2.1 % (0-5); HEMATOCRIT 25.4 % (42-52); MEAN CORPUSCULAR HGB 30.4 PG (27.0-31.0); MEAN CORPUSCULAR VOLUME 91.9 FL (80.0-94.0); MEAN PLATELET VOLUME 8.5 FL (7.4-10.4); PLATELET COUNT 446 /CUMM (130-400); RBC DISTRIBUTION WIDTH 14.4 % (11.5-14.5); RED BLOOD CELL CT 2.76 /CUMM (4.70-6.10); WHITE BLOOD CELL COUNT 9.5 /CUMM (4.8-10.8)
--- NOTE | 2017-04-16 08:38 | PN- Diabetes ---
Assessment/Plan Diabetes Assessment: 70 y/o male, Hx of DM type 1 diagnosed when he was 14 years old. He was on an insulin pump with basal rate running at 0.9 units per hour in the past. His diabetes was complicated by neuropathy, retinopathy, nephropathy. Patient presented to the ED after sustaining an unwitnessed fall. He was admitted for positive troponin with peak troponin of 6.64, ongoing right foot infection and gangrene of 2nd toe and 3rd toe. The procedure for amputation of foot was done on 04/14/2017. He is NPO. D5W at 50 ml/hour was discontinued due to respiratory distress. He received several doses of lasix. He is on Levemir 5 units twice a day and RISS every 6 hours. His FSGs were 160, 380, 315 and 172. Plan: 1. continue Levemir 5 units twice a day; 2. stop RISS every 6 hours; 3. start Novolog coverage every 4 hours; detail see the inpatient DM order; 4. monitor FSGs. will follow. Inpatient Diabetes Orders Every 4 Hours: Bolus Insulin: Novolog < 80 mg/dl: no coverage 80-100 mg/dl: no coverage 101-120 mg/dl: no coverage 121-150 mg/dl: no coverage 151-200 mg/dl: 2 units 201-250 mg/dl: 3 units 251-300 mg/dl: 4 units 301-350 mg/dl: 5 units 351-400 mg/dl: 6 units > 400 mg/dl: 8 units Subjective Subjective: He appears lethargic and confused. Objective Last 24 Hrs of Vital Signs/I&O Vital Signs Date Time Temp Pulse Resp B/P B/P Pulse O2 O2 Flow FiO2 Mean Ox Delivery Rate 04/16 0600 97.6 74 20 124/62 100 04/16 0151 98 Nasal 60% Cannula 04/15 2237 93 Nasal 60% Cannula 04/15 2143 97.9 86 20 128/62 99 Nasal 60% Cannula 04/15 1919 93 Nasal 60% Cannula 04/15 1610 94 Nasal 60% Cannula 04/15 1600 95 Nasal 60% Cannula 04/15 1418 22 95 Nasal 60% Cannula 04/15 1401 91 99 02 1339 99.2 95 20 124/72 100 BIPAP 60% 04/15 1221 98.9 90 22 114/70 95 BIPAP 60% 04/15 1136 98 98 02/21 1042 99.0 100 22 116/72 99 BIPAP 60% 04/15 0854 98 94 Intake & Output 04/16 1600 04/16 0800 04/16 0000 Intake Total 400 Output Total 1200 900 Balance -1200 -500 Intake, IV 280 Intake, Oral 120 Output, Urine 1200 900 Patient 165 lb Weight Findings Pertinent Lab/Fransisco Results: Laboratory Tests 04/16 04/16 04/15 04/15 0604 0000 1650 0953 Chemistry Sodium (137 - 145 mmol/L) 143 143 Potassium (3.5 - 5.1 mmol/L) 3.7 3.9 Chloride (98 - 107 mmol/L) 102 99 Carbon Dioxide (22 - 30 mmol/L) 35 H 30 Anion Gap (5 - 16) 6 13 BUN (9 - 20 mg/dL) 33 H 31 H Creatinine (0.7 - 1.2 mg/dL) 1.1 1.1 Estimated GFR (>60 ml/min) > 60 > 60 BUN/Creatinine Ratio (7 - 25 %) 30.0 H 28.2 H Troponin I (<0.11 ng/ml) 0.12 *H 0.14 *H 0.13 *H Vdl-P-Cjcusoseqel Pept (<125 pg/mL) 83312 H Hematology CBC w Diff Pending WBC Pending RBC Pending Hgb Pending Hct Pending MCV Pending MCH Pending MCHC Pending RDW Pending Plt Count Pending MPV Pending
--- NOTE | 2017-04-16 10:39 | PN- Pulmonary ---
Subjective HPI/Critical Care Issues: Doing well stable Awake Laboratory Tests 04/16 04/16 04/16 0915 0604 0000 Chemistry Sodium (137 - 145 mmol/L) 143 Potassium (3.5 - 5.1 mmol/L) 3.7 Chloride (98 - 107 mmol/L) 102 Carbon Dioxide (22 - 30 mmol/L) 35 H Anion Gap (5 - 16) 6 BUN (9 - 20 mg/dL) 33 H Creatinine (0.7 - 1.2 mg/dL) 1.1 Estimated GFR (>60 ml/min) > 60 BUN/Creatinine Ratio (7 - 25 %) 30.0 H Troponin I (<0.11 ng/ml) 0.12 *H Hematology CBC w Diff NO MAN DIFF REQ WBC (4.8 - 10.8 /CUMM) 9.5 RBC (4.70 - 6.10 /CUMM) 2.76 L Hgb (14.0 - 18.0 G/DL) 8.4 L Hct (42 - 52 %) 25.4 L MCV (80.0 - 94.0 FL) 91.9 MCH (27.0 - 31.0 PG) 30.4 MCHC (33.0 - 37.0 G/DL) 33.0 RDW (11.5 - 14.5 %) 14.4 Plt Count (130 - 400 /CUMM) 446 H MPV (7.4 - 10.4 FL) 8.5 Gran % (42.2 - 75.2 %) 81.0 H Lymphocytes % (20.5 - 51.1 %) 9.5 L Monocytes % (1.7 - 9.3 %) 6.2 Eosinophils % (0 - 5 %) 2.1 Basophils % (0.0 - 2.0 %) 1.2 Absolute Granulocytes (1.4 - 6.5 /CUMM) 7.7 H Absolute Lymphocytes (1.2 - 3.4 /CUMM) 0.9 L Absolute Monocytes (0.10 - 0.60 /CUMM) 0.6 Absolute Eosinophils (0.0 - 0.7 /CUMM) 0.2 Absolute Basophils (0.0 - 0.2 /CUMM) 0.1 ESR Westergren Pending 04/15 04/15 04/15 1650 0913 0604 Chemistry Sodium (137 - 145 mmol/L) 143 142 Potassium (3.5 - 5.1 mmol/L) 3.9 4.0 Chloride (98 - 107 mmol/L) 99 99 Carbon Dioxide (22 - 30 mmol/L) 30 33 H Anion Gap (5 - 16) 13 10 BUN (9 - 20 mg/dL) 31 H 28 H Creatinine (0.7 - 1.2 mg/dL) 1.1 1.0 Estimated GFR (>60 ml/min) > 60 > 60 BUN/Creatinine Ratio (7 - 25 %) 28.2 H 28.0 H Troponin I (<0.11 ng/ml) 0.14 *H 0.13 *H Olc-R-Jtmgoikejlw Pept (<125 pg/mL) 43962 H Hematology CBC w Diff NO MAN DIFF REQ WBC (4.8 - 10.8 /CUMM) 10.5 RBC (4.70 - 6.10 /CUMM) 3.27 L Hgb (14.0 - 18.0 G/DL) 10.1 L Hct (42 - 52 %) 30.2 L MCV (80.0 - 94.0 FL) 92.3 MCH (27.0 - 31.0 PG) 30.7 MCHC (33.0 - 37.0 G/DL) 33.3 RDW (11.5 - 14.5 %) 14.3 Plt Count (130 - 400 /CUMM) 518 H MPV (7.4 - 10.4 FL) 8.9 Gran % (42.2 - 75.2 %) 89.6 H Lymphocytes % (20.5 - 51.1 %) 5.2 L Monocytes % (1.7 - 9.3 %) 4.1 Eosinophils % (0 - 5 %) 0.6 Basophils % (0.0 - 2.0 %) 0.5 Absolute Granulocytes (1.4 - 6.5 /CUMM) 9.4 H Absolute Lymphocytes (1.2 - 3.4 /CUMM) 0.5 L Absolute Monocytes (0.10 - 0.60 /CUMM) 0.4 Absolute Eosinophils (0.0 - 0.7 /CUMM) 0.1 Absolute Basophils (0.0 - 0.2 /CUMM) 0.1 /5 Blood Gas pH (7.35 - 7.45 PH) 7.55 H pCO2 (35 - 45 TORR) 34 L pO2 (80 - 100 TORR) 68 L HCO3 (21 - 28 MEQ/L) 29 H ABG O2 Sat (Measured) (>96.0 %) 94.0 L P-50 (Temp Corrected) N Carboxyhemoglobin (1.5 - 5.0 %) 1.3 L O2 Concentration % 60% Temperature (97.0 - 100.0 FARH) 98.7 O2 Delivery Method HFNC AT 40LPM Miscellaneous Phlebotomy Draw Site RIGHT BRACHIAL Microbiology Date/Time Procedure - Status Source Growth 04/15 141 Respiratory Culture - COLB LOWER RESP 04/15 141 Gram Stain - COLB LOWER RESP Objective Current Medications: Current Medications Sig/Coral Start time Last Medication Dose Route Stop Time Status Admin Acetaminophen 500 MG TID 04/03 1156 AC 04/15 PO 2123 Albuterol Sulfate 3 ML Q4P PRN 04/15 0800 AC 04/15 INH 0755 Amlodipine Besylate 5 MG DAILY 04/03 1200 AC 04/14 PO 1023 Aspirin 81 MG DAILY 04/04 1000 AC 04/13 PO 1022 Enoxaparin Sodium 70 MG BID 04/15 1000 DC 04/15 SC 1010 Fluticasone 2 SPRAY DAILY 04/03 1155 AC 04/14 Propionate THOMAS 1024 Furosemide 40 MG DAILY 04/16 1000 AC 04/16 IV 1025 Furosemide 40 MG Q12 04/15 2200 DC 04/15 IV 2123 Furosemide 40 MG 7:30 AM, & 4:30 PM 04/15 1630 DC IV Furosemide 20 MG ONCE ONE 04/15 1045 DC 04/15 IV 04/15 1046 1048 Furosemide 20 MG 7:30 AM, & 4:30 PM 04/11 1430 DC 04/15 IV 0734 Heparin Sodium 5,000 UNIT Q8 04/15 2200 AC 04/16 (Porcine) SC 0705 Insulin Aspart 0 Q4 04/16 1000 AC SC Insulin Detemir 5 UNITS BID 04/15 2200 AC 04/15 SC 212 Insulin Detemir 7 UNITS BID 04/14 1000 DC 04/14 SC 2252 Insulin Human Regular 5 UNITS .STK-MED ONE 04/16 0052 DC IV 04/16 0053 Insulin Human Regular 0 Q6 04/15 1200 DC 04/16 SC 0054 Metoprolol Succinate 25 MG DAILY 04/03 1714 AC 04/14 PO 1022 Morphine Sulfate 2 MG Q4P PRN 04/04 1845 AC 04/11 IV 0454 Omeprazole 40 MG DAILY AC 04/11 0700 AC 04/15 PO 0550 Povidone Iodine 1 MEHRAN DAILY 04/13 1000 AC 04/16 TOP 1025 Pregabalin 50 MG TID 04/03 1155 AC 04/15 PO 2123 Vancomycin HCl 1,000 MG 1600 04/16 1600 AC Dextrose/Water 250 ML IV Vancomycin HCl 1,000 MG DAILY 04/15 1415 DC 04/15 Dextrose/Water 250 ML IV 1536 Vital Signs & I&O Last 24 Hrs of Vitals and I&O: Vital Signs Date Time Temp Pulse Resp B/P B/P Pulse O2 O2 Flow FiO2 Mean Ox Delivery Rate 04/16 1026 97 Nasal 50% Cannula 04/16 0924 Nasal 50% Cannula 04/16 0845 22 97 Nasal 50% Cannula 04/16 0844 22 100 Nasal 60% Cannula 04/16 0600 97.6 74 20 124/62 100 04/16 0151 98 Nasal 60% Cannula 04/16 0000 99 60% 04/15 2237 93 Nasal 60% Cannula 04/15 2143 97.9 86 20 128/62 99 Nasal 60% Cannula 04/15 1919 93 Nasal 60% Cannula 04/15 1610 94 Nasal 60% Cannula 04/15 1600 95 Nasal 60% Cannula 04/15 1418 22 95 Nasal 60% Cannula 04/15 1401 91 99 04/15 1339 99.2 95 20 124/72 100 BIPAP 60% 04/15 1221 98.9 90 22 114/70 95 BIPAP 60% 04/15 1136 98 98 04/15 1042 99.0 100 22 116/72 99 BIPAP 60% Intake & Output 04/16 1600 04/16 0800 04/16 0000 Intake Total 0 400 Output Total 1200 900 Balance -1200 -500 Intake, IV 0 280 Intake, Oral 0 120 Number 0 Bowel Movements Output, Urine 1200 900 Patient 165 lb Weight Impression/Plan Impression/Plan Impression/Plan: Lungs rhonchi and scattered crackles on the right, much improved from yesterday, on high flow Heart regular rhythm with no murmur Abdomen is soft, nontender with positive bowel sounds Extremities necrotic right second and third toes; left foot petechial/ purpuric rash Land catheter is in place IMPRESSION This is a gentleman with diabetes type 1 with multiple complications including neuropathy, significant peripheral vascular disease, previous pacemaker far heart block, 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 Infectious disease, podiatry and vascular surgery is following pt s/p TMA rt foot * Type 1 diabetes with multiple organ dysfunction including diabetic nephropathy , neuropathy, peripheral vascular disease and retinopathy. * CKD with renal insufficiency since admission most likely related to combination of factors including his underlying diabetic kidney disease. Now has creat which is stable. Pt did get CTA however this morning * Reduced ejection fraction with EF of 35-40% with abnormal diastolic dysfunction which appears to be chronic * Severe peripheral vascular disease with dry gangrene of the left foot s/p tma Recommendation COnt High flow and change to nasal cannula Hold abx COnt diuresis lasix 40 iv Watch renal function especially as he has had contrast Sub cut heparin Cont to monitor glucose Keep his head of bed elevated Cont to monitor Glucose and rx with insulin DNR and DNI Discussed with the family
--- NOTE | 2017-04-16 12:08 | PN- Cardiology ---
Subjective Subjective: The patient is improved with regards to respiration. He is now on a high flow oxygen. He is saturating okay. His CTA did not show pulmonary emboli but did show interstitial fluid most consistent with pulmonary edema. He is still receiving IV Lasix 40 mg twice daily. His I's and O's are negative over the past 2 days. Objective Vital Signs and I&Os Vital Signs Date Time Temp Pulse Resp B/P B/P Pulse O2 O2 Flow FiO2 Mean Ox Delivery Rate 04/16 1026 97 Nasal 50% Cannula 04/16 0924 Nasal 50% Cannula 04/16 0845 22 97 Nasal 50% Cannula 04/16 0844 22 100 Nasal 60% Cannula 04/16 0600 97.6 74 20 124/62 100 04/16 0151 98 Nasal 60% Cannula 04/16 0000 99 60% 04/15 2237 93 Nasal 60% Cannula 04/15 2143 97.9 86 20 128/62 99 Nasal 60% Cannula 04/15 1919 93 Nasal 60% Cannula 04/15 1610 94 Nasal 60% Cannula 04/15 1600 95 Nasal 60% Cannula 04/15 1418 22 95 Nasal 60% Cannula 04/15 1401 91 99 04/15 1339 99.2 95 20 124/72 100 BIPAP 60% 04/15 1221 98.9 90 22 114/70 95 BIPAP 60% Intake & Output 04/16 1600 04/16 0800 04/16 0000 04/15 1600 04/15 0800 04/15 0000 Intake Total 0 400 40 240 855 Output Total 1200 900 643 184 8126 Balance -1200 -500 -560 40 -270 Intake, IV 0 280 40 835 Intake, Oral 0 120 0 240 20 Number 0 0 0 Bowel Movements Output, Urine 1200 900 252 707 2436 Patient 165 lb 156 lb Weight Weight Bed scale Measurement Method Physical Exam: He is in no distress, breathing easy Chest reveals coarse rales especially on the right Heart reveals regular rhythm and systolic murmur at the base There is no peripheral edema Current Medications: Current Medications Sig/Coral Start time Last Medication Dose Route Stop Time Status Admin Acetaminophen 500 MG TID 04/03 1156 AC 04/15 PO 2123 Albuterol Sulfate 3 ML Q4P PRN 04/15 0800 AC 04/15 INH 0755 Amlodipine Besylate 5 MG DAILY 04/03 1200 AC 04/14 PO 1023 Aspirin 81 MG DAILY 04/04 1000 AC 04/13 PO 1022 Enoxaparin Sodium 70 MG BID 04/15 1000 DC 04/15 SC 1010 Fluticasone 2 SPRAY DAILY 04/03 1155 AC 04/14 Propionate THOMAS 1024 Furosemide 40 MG DAILY 04/16 1000 AC 04/16 IV 1025 Furosemide 40 MG Q12 04/15 2200 DC 04/15 IV 2123 Furosemide 40 MG 7:30 AM, & 4:30 PM 04/15 1630 DC IV Heparin Sodium 5,000 UNIT Q8 04/15 2200 AC 04/16 (Porcine) SC 0705 Insulin Aspart 0 Q4 04/16 1000 AC SC Insulin Detemir 5 UNITS BID 04/15 2200 AC 04/15 SC 212 Insulin Human Regular 5 UNITS .STK-MED ONE 04/16 0052 DC IV 04/16 0053 Insulin Human Regular 0 Q6 04/15 1200 DC 04/16 SC 0054 Metoprolol Succinate 25 MG DAILY 04/03 1714 AC 04/14 PO 1022 Morphine Sulfate 2 MG Q4P PRN 04/04 1845 AC 04/11 IV 0454 Omeprazole 40 MG DAILY AC 04/11 0700 AC 04/15 PO 0550 Povidone Iodine 1 MEHRAN DAILY 04/13 1000 AC 04/16 TOP 1025 Pregabalin 50 MG TID 04/03 1155 AC 04/15 PO 2123 Vancomycin HCl 1,000 MG 1600 04/16 1600 AC Dextrose/Water 250 ML IV Vancomycin HCl 1,000 MG DAILY 04/15 1415 DC 04/15 Dextrose/Water 250 ML IV 1536 Results Last 48 Hrs of Labs/Mics: Laboratory Tests 04/16/17 0915: ESR Westergren 93 H 04/16/17 0604: Anion Gap 6, Estimated GFR > 60, BUN/Creatinine Ratio 30.0 H, CBC w Diff NO MAN DIFF REQ, RBC 2.76 L, MCV 91.9, MCH 30.4, MCHC 33.0, RDW 14.4, MPV 8.5, Gran % 81.0 H, Lymphocytes % 9.5 L, Monocytes % 6.2, Eosinophils % 2.1, Basophils % 1.2, Absolute Granulocytes 7.7 H, Absolute Lymphocytes 0.9 L, Absolute Monocytes 0.6, Absolute Eosinophils 0.2, Absolute Basophils 0.1 04/16/17 0000: Troponin I 0.12 *H 04/15/17 1650: Anion Gap 13, Estimated GFR > 60, BUN/Creatinine Ratio 28.2 H, Troponin I 0.14 *H 04/15/17 0953: Troponin I 0.13 *H, Kio-P-Aadgzliojyw Pept 88443 H 04/15/17 0633: Anion Gap 10, Estimated GFR > 60, BUN/Creatinine Ratio 28.0 H, CBC w Diff NO MAN DIFF REQ, RBC 3.27 L, MCV 92.3, MCH 30.7, MCHC 33.3, RDW 14.3, MPV 8.9, Gran % 89.6 H, Lymphocytes % 5.2 L, Monocytes % 4.1, Eosinophils % 0.6, Basophils % 0.5, Absolute Granulocytes 9.4 H, Absolute Lymphocytes 0.5 L, Absolute Monocytes 0.4, Absolute Eosinophils 0.1, Absolute Basophils 0.1 04/14/175: pH 7.55 H, pCO2 34 L, pO2 68 L, HCO3 29 H, ABG O2 Sat (Measured) 94.0 L, P- 50 (Temp Corrected) N, Carboxyhemoglobin 1.3 L, O2 Concentration % 60%, Temperature 98.7, O2 Delivery Method HFNC AT 40LPM, Phlebotomy Draw Site RIGHT BRACHIAL Recent Imaging Studies: PATIENT: JIM WASSERMAN PRESENT AGE: 71 PATIENT ACCOUNT NO: [id number] : 47 LOCATION: [facility] ORDERING PHYSICIAN: Saravanan Rashid MD SERVICE DATE: 04/15/17 EXAM TYPE: CAT - CTA CHEST-PULMONARY EMBOLISM EXAMINATION: CT ANGIOGRAM OF THE CHEST WITH AND WITHOUT CONTRAST (CT PULMONARY ANGIOGRAM FOR PE) CLINICAL INFORMATION: Suspected pulmonary embolism. Worsening dyspnea. COMPARISON: Chest radiograph 04/14/2017. TECHNIQUE: Prior to contrast administration, noncontrast localization images were obtained. Subsequently, multidetector volumetric imaging was performed from the thoracic inlet to below the diaphragms following the administration of 98 mL Optiray 320 intravenous contrast. No contrast reaction reported. Sagittal, coronal, and MIP oblique sagittal reformatted images were obtained on the CT workstation, uploaded to PACS, and reviewed. Total exam dose-length product 584.68 mGy-cm. FINDINGS: The timing of the contrast injection provides adequate opacification of the pulmonary arterial vasculature. There is no central luminal filling defect to suggest the presence of an acute pulmonary embolism. There are interstitial and alveolar opacities with a perihilar predominant distribution and a moderately sized bilateral pleural effusions with associated compressive atelectasis of the lower lobes. No pneumothorax. The heart size is at upper limits of normal size. No pericardial effusion. There is a chronic compression fracture of the T12 vertebral body with impaction of the upper endplate resulting in 25% vertebral body height loss anteriorly. No acute osseous finding. Specifically no worrisome lytic or blastic osseous lesion. IMPRESSION: No evidence of acute pulmonary embolism. There are interstitial and alveolar opacities involving both lungs with a perihilar predominant distribution and there are moderately sized bilateral pleural effusions. These findings most likely represent a manifestation of pulmonary edema. The possibility of superimposed pneumonia cannot be definitively excluded on the basis of this examination. VTE: Negative. DICTATED BY: Spencer Pierce MD DATE/TIME DICTATED:04/15/171208 TURBINE OPERATOR:INES DATE/TIME TRANSCRIBED:04/15/171208 CONFIDENTIAL, DO NOT COPY WITHOUT APPROPRIATE AUTHORIZATION. <Electronically signed in Other Vendor System> SIGNED BY: Spencer Pierce MD 04/15 Assessment/Plan Assessment/Plan The patient is improved from a respiratory standpoint. I believe most of his respiratory issues are pulmonary edema rather than pneumonia. We should continue vigorous diuresis and monitor with periodic chest x-rays. I think it will be possible to get him into good enough shape for a transfer to rehabilitation if he continues to improve. Continue telemetry? Not applicable
[2017-04-16 13:52] VITALS: BP 138/88
--- NOTE | 2017-04-16 14:02 | RADIOLOGY REPORT ---
EXAMINATION: XR PORTABLE CHEST CLINICAL INFORMATION: CHF, edema and shortness of breath. COMPARISON: Chest x-ray, portable dated 04/14/2017, chest CT dated 04/15/2017. TECHNIQUE: Portable frontal view of the chest was obtained. FINDINGS: Central airspace opacification in the right hemithorax is more confluent compared to the prior chest x-ray of 04/14/2017. The lung volumes are decreased compared to the previous plain film and chest CT studies. Increasing pulmonary interstitial markings is suggestive of increasing pulmonary edema. The increased density in the lateral aspect of the left lung base is unchanged. Blunting of both left and right costophrenic angles is suggestive of bilateral pleural effusions. The pacemaker in the right upper chest is unchanged, with dual intact leads. IMPRESSION: Findings suggestive of increasing pulmonary edema as described in detail above.
--- NOTE | 2017-04-16 14:30 | PN- Infect Dx ---
Subjective Subjective: Afebrile without specific complaints. Objective Last 24 Hrs of Vital Signs/I&O Vital Signs Date Time Temp Pulse Resp B/P B/P Pulse O2 O2 Flow FiO2 Mean Ox Delivery Rate 04/16 1352 98.4 85 20 138/88 97 Nasal 50% Cannula 04/16 1026 97 Nasal 50% Cannula 04/16 0924 Nasal 50% Cannula 04/16 0845 22 97 Nasal 50% Cannula 04/16 0844 22 100 Nasal 60% Cannula 04/16 0800 99 Nasal 60% Cannula 04/16 0600 97.6 74 20 124/62 100 04/16 0151 98 Nasal 60% Cannula 04/16 0000 99 60% 04/15 2237 93 Nasal 60% Cannula 04/15 2143 97.9 86 20 128/62 99 Nasal 60% Cannula 04/15 1919 93 Nasal 60% Cannula 04/15 1610 94 Nasal 60% Cannula 04/15 1600 95 Nasal 60% Cannula Intake & Output 04/16 1600 04/16 0800 04/16 0000 Intake Total 50 0 400 Output Total 900 1200 900 Balance -850 -1200 -500 Intake, IV 50 0 280 Intake, Oral 0 0 120 Number 0 0 Bowel Movements Output, Urine 900 1200 900 Patient 165 lb Weight Physical Exam Other Physical Findings: He is alert and appears comfortable on high flow oxygen Lungs bilateral rhonchi Heart regular rhythm with no murmur Extremities right foot dressing intact Results Last 24 Hours of Lab Results: Laboratory Tests 04/16 04/16 04/16 0915 0604 0000 Chemistry Sodium (137 - 145 mmol/L) 143 Potassium (3.5 - 5.1 mmol/L) 3.7 Chloride (98 - 107 mmol/L) 102 Carbon Dioxide (22 - 30 mmol/L) 35 H Anion Gap (5 - 16) 6 BUN (9 - 20 mg/dL) 33 H Creatinine (0.7 - 1.2 mg/dL) 1.1 Estimated GFR (>60 ml/min) > 60 BUN/Creatinine Ratio (7 - 25 %) 30.0 H Troponin I (<0.11 ng/ml) 0.12 *H Hematology CBC w Diff NO MAN DIFF REQ WBC (4.8 - 10.8 /CUMM) 9.5 RBC (4.70 - 6.10 /CUMM) 2.76 L Hgb (14.0 - 18.0 G/DL) 8.4 L Hct (42 - 52 %) 25.4 L MCV (80.0 - 94.0 FL) 91.9 MCH (27.0 - 31.0 PG) 30.4 MCHC (33.0 - 37.0 G/DL) 33.0 RDW (11.5 - 14.5 %) 14.4 Plt Count (130 - 400 /CUMM) 446 H MPV (7.4 - 10.4 FL) 8.5 Gran % (42.2 - 75.2 %) 81.0 H Lymphocytes % (20.5 - 51.1 %) 9.5 L Monocytes % (1.7 - 9.3 %) 6.2 Eosinophils % (0 - 5 %) 2.1 Basophils % (0.0 - 2.0 %) 1.2 Absolute Granulocytes (1.4 - 6.5 /CUMM) 7.7 H Absolute Lymphocytes (1.2 - 3.4 /CUMM) 0.9 L Absolute Monocytes (0.10 - 0.60 /CUMM) 0.6 Absolute Eosinophils (0.0 - 0.7 /CUMM) 0.2 Absolute Basophils (0.0 - 0.2 /CUMM) 0.1 ESR Westergren (0 - 10 MM) 93 H 04/15 1650 Chemistry Sodium (137 - 145 mmol/L) 143 Potassium (3.5 - 5.1 mmol/L) 3.9 Chloride (98 - 107 mmol/L) 99 Carbon Dioxide (22 - 30 mmol/L) 30 Anion Gap (5 - 16) 13 BUN (9 - 20 mg/dL) 31 H Creatinine (0.7 - 1.2 mg/dL) 1.1 Estimated GFR (>60 ml/min) > 60 BUN/Creatinine Ratio (7 - 25 %) 28.2 H Troponin I (<0.11 ng/ml) 0.14 *H Last 24 Hours of [place] Results: No new cultures Recent Imaging Studies: Chest x-ray April 16 reveals more confluent airspace opacification in the right hemithorax with increasing pulmonary interstitial markings CTA of the chest April 15 reveals interstitial and alveolar opacities involving both lungs with a perihilar predominant distribution with moderately size bilateral pleural effusions most suggestive of pulmonary edema X-ray of the right foot no acute erosion seen Assessment/Plan ID Impression: Appears somewhat improved, now on high flow oxygen, status post a significant diuresis yesterday for presumed pulmonary edema, though his chest x-ray today has not improved. He remains afebrile with his white blood cell count remaining normal now on Vancomycin for possible residual soft tissue infection of the right foot status post TMA 2 days ago, with no concern by Podiatry for any residual osteomyelitis. Suggestion: 1. Further management of his pulmonary edema per Cardiology 2. Continue Vancomycin
[2017-04-16 22:15] VITALS: BP 128/68
[2017-04-17 07:28] VITALS: BP 110/60
[2017-04-17 08:14] LABS: ABSOLUTE BASOPHIL COUNT 0.1 /CUMM (0.0-0.2); ABSOLUTE EOSINOPHIL COUNT 0.2 /CUMM (0.0-0.7); ABSOLUTE GRANULOCYTE CT 7.5 /CUMM (1.4-6.5); ABSOLUTE LYMPH COUNT 0.8 /CUMM (1.2-3.4); ABSOLUTE MONOCYTE COUNT 0.5 /CUMM (0.10-0.60); EOSINOPHIL % 1.9 % (0-5); GRANULOCYTE % 82.5 % (42.2-75.2); HEMATOCRIT 25.3 % (42-52); MEAN CORPUSCULAR HGB 30.5 PG (27.0-31.0); MEAN CORPUSCULAR HGB CONC 33.4 G/DL (33.0-37.0); MEAN CORPUSCULAR VOLUME 91.3 FL (80.0-94.0); MEAN PLATELET VOLUME 8.6 FL (7.4-10.4); PLATELET COUNT 455 /CUMM (130-400); RBC DISTRIBUTION WIDTH 14.5 % (11.5-14.5); RED BLOOD CELL CT 2.77 /CUMM (4.70-6.10); WHITE BLOOD CELL COUNT 9.1 /CUMM (4.8-10.8)
--- NOTE | 2017-04-17 10:51 | PN- Pulmonary ---
Subjective HPI/Critical Care Issues: Doing well stable on high flow Objective Current Medications: Current Medications Sig/Coral Start time Last Medication Dose Route Stop Time Status Admin Acetaminophen 500 MG TID 04/03 1156 AC 04/16 PO 2154 Albuterol Sulfate 3 ML Q4P PRN 04/15 0800 AC 04/15 INH 0755 Amlodipine Besylate 5 MG DAILY 04/03 1200 AC 04/14 PO 1023 Aspirin 81 MG DAILY 04/04 1000 AC 04/13 PO 1022 Dextrose/Sodium 1,000 ML Q20H 04/16 1230 DC 04/16 Chloride IV 1354 Fluticasone 2 SPRAY DAILY 04/03 1155 AC 04/17 Propionate THOMAS 0809 Furosemide 40 MG BID 04/16 2200 AC 04/17 IV 0806 Furosemide 40 MG DAILY 04/16 1000 DC 04/16 IV 1025 Heparin Sodium 5,000 UNIT Q8 04/15 2200 AC 04/17 (Porcine) SC 0636 Insulin Aspart 0 Q4 04/16 1000 AC 04/17 SC 1020 Insulin Detemir 7 UNITS BID 04/17 1000 AC 04/17 SC 1020 Insulin Detemir 5 UNITS BID 04/15 2200 DC 04/16 SC 2217 Metoprolol Succinate 25 MG DAILY 04/03 1714 AC 04/14 PO 1022 Morphine Sulfate 2 MG Q4P PRN 04/04 1845 AC 04/11 IV 0454 Omeprazole 40 MG DAILY AC 04/11 0700 AC 04/15 PO 0550 Povidone Iodine 1 MEHRAN DAILY 04/13 1000 AC 04/17 TOP 0809 Pregabalin 50 MG TID 04/03 1155 AC 04/16 PO 2153 Sodium Chloride 1,000 ML Q13H 04/17 0045 AC 04/17 IV 0054 Vancomycin HCl 1,000 MG 1600 04/16 1600 AC 04/16 Dextrose/Water 250 ML IV 1613 Vital Signs & I&O Last 24 Hrs of Vitals and I&O: Vital Signs Date Time Temp Pulse Resp B/P B/P Pulse O2 O2 Flow FiO2 Mean Ox Delivery Rate 04/17 924 99 Nasal 40% Cannula 04/17 0809 97.9 66 20 110/60 04/17 0808 97.9 66 20 110/60 04/17 0728 97.9 66 20 110/60 98 40% 04/17 0238 99 Nasal 50% Cannula 04/16 2214 97.9 78 20 128/68 100 Nasal 40% Cannula 04/16 2019 97 Nasal 40% Cannula 04/16 1800 99 Nasal 50% Cannula 04/16 1600 96 Nasal 50% Cannula 04/16 1352 98.4 85 20 138/88 97 Nasal 50% Cannula Intake & Output 04/17 1600 04/17 0800 04/17 0000 Intake Total 425 430 Output Total 350 825 Balance 75 -395 Intake, IV 400 420 Intake, Oral 25 10 Number 0 Bowel Movements Output, Urine 350 825 Impression/Plan Impression/Plan Impression/Plan: Lungs rhonchi and scattered crackles on the right, much improved from yesterday, on high flow Heart regular rhythm with no murmur Abdomen is soft, nontender with positive bowel sounds Extremities necrotic right second and third toes; left foot petechial/ purpuric rash Land catheter is in place IMPRESSION This is a gentleman with diabetes type 1 with multiple complications including neuropathy, significant peripheral vascular disease, previous pacemaker far heart block, 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 Infectious disease, podiatry and vascular surgery is following pt s/p TMA rt foot * Type 1 diabetes with multiple organ dysfunction including diabetic nephropathy , neuropathy, peripheral vascular disease and retinopathy. * CKD with renal insufficiency since admission most likely related to combination of factors including his underlying diabetic kidney disease. Now has creat which is stable. Pt did get CTA however this morning * Reduced ejection fraction with EF of 35-40% with abnormal diastolic dysfunction which appears to be chronic * Severe peripheral vascular disease with dry gangrene of the left foot s/p tma Recommendation Change to nasal cannula and goal sat is 90 to 92 only COnt diuresis lasix 40 iv Watch renal function Sub cut heparin Cont to monitor glucose Keep his head of bed elevated Cont to monitor Glucose and rx with insulin
--- NOTE | 2017-04-17 11:06 | PN- Housestaff ---
Samira Avila MD,[facility] 04/17/17 1105: Subjective Follow-up For: Acute hypoxic respiratory failure Acute lung injury Severe peripheral vascular disease Right leg gangrene Type 1 diabetes Renal insufficiency Subjective: Patient visited today, was lying in bed comfortably in no acute distress, currently on 60% HF o2 in place, was alert and oriented. again improved compared to yesterday. No fever or chills, no chest pain, no other events. Patient passed swallow evaluation and we started diet. CXR no improvement, we continued lasix, will repeat xray daily, with improvement will change to PO lasix. Review of Systems Constitutional: Reports: see HPI. Objective Last 24 Hrs of Vital Signs/I&O Vital Signs Date Time Temp Pulse Resp B/P B/P Pulse O2 O2 Flow FiO2 Mean Ox Delivery Rate 04/17 0925 99 Nasal 40% Cannula 04/17 0809 97.9 66 20 110/60 04/17 0808 97.9 66 20 110/60 04/17 0728 97.9 66 20 110/60 98 40% 04/17 0238 99 Nasal 50% Cannula 04/16 2215 97.9 78 20 128/68 100 Nasal 40% Cannula 04/16 2020 97 Nasal 40% Cannula 04/16 1800 99 Nasal 50% Cannula 04/16 1600 96 Nasal 50% Cannula 04/16 1352 98.4 85 20 138/88 97 Nasal 50% Cannula Intake & Output 04/17 1600 04/17 0800 04/17 0000 Intake Total 425 430 Output Total 350 825 Balance 75 -395 Intake, IV 400 420 Intake, Oral 25 10 Number 0 Bowel Movements Output, Urine 350 825 Physical Exam General Appearance: Alert, Oriented X3, Cooperative, No Acute Distress Skin Temp/Moisture Exam: Warm/Dry Sepsis Skin Exam (color): Normal for Ethnicity HEENT: Atraumatic, EOMI, Mucous Membr. moist/pink Cardiovascular: Regular Rate, Normal S1, Normal S2 Lungs: Normal Air Movement Abdomen: Soft, No Tenderness Neurological: Normal Speech, Strength at 5/5 X4 Ext Extremities: No edema, Right foot s/p TMA bilateral LE dressing in place Current Medications: Current Medications Sig/Coral Start time Last Medication Dose Route Stop Time Status Admin Acetaminophen 500 MG TID 04/03 1156 AC 04/16 PO 2154 Albuterol Sulfate 3 ML Q4P PRN 04/15 0800 AC 04/15 INH 0755 Amlodipine Besylate 5 MG DAILY 04/03 1200 AC 04/14 PO 1023 Aspirin 81 MG DAILY 04/04 1000 AC 04/13 PO 1022 Dextrose/Sodium 1,000 ML Q20H 04/16 1230 DC 04/16 Chloride IV 1354 Fluticasone 2 SPRAY DAILY 04/03 1155 AC 04/17 Propionate THOMAS 0809 Furosemide 40 MG BID 04/16 2200 AC 04/17 IV 0806 Furosemide 40 MG DAILY 04/16 1000 DC 04/16 IV 1025 Heparin Sodium 5,000 UNIT Q8 04/15 2200 AC 04/17 (Porcine) SC 0636 Insulin Aspart 0 Q4 04/16 1000 AC 04/17 SC 1020 Insulin Detemir 7 UNITS BID 04/17 1000 AC 04/17 SC 1020 Insulin Detemir 5 UNITS BID 04/15 2200 DC 04/16 SC 2217 Metoprolol Succinate 25 MG DAILY 04/03 1714 AC 04/14 PO 1022 Morphine Sulfate 2 MG Q4P PRN 04/04 1845 AC 04/11 IV 0454 Omeprazole 40 MG DAILY AC 04/11 0700 AC 04/15 PO 0550 Povidone Iodine 1 MEHRAN DAILY 04/13 1000 AC 04/17 TOP 0809 Pregabalin 50 MG TID 04/03 1155 AC 04/16 PO 2153 Sodium Chloride 1,000 ML Q13H 04/17 0045 AC 04/17 IV 0054 Vancomycin HCl 1,000 MG 1600 04/16 1600 AC 04/16 Dextrose/Water 250 ML IV 1613 Last 24 Hrs of Lab/[place]isco Results Last 24 Hrs of Labs/Mics: Laboratory Tests 04/17/17 0627: Anion Gap 8, Estimated GFR > 60, BUN/Creatinine Ratio 32.7 H, CBC w Diff NO MAN DIFF REQ, RBC 2.77 L, MCV 91.3, MCH 30.5, MCHC 33.4, RDW 14.5, MPV 8.6, Gran % 82.5 H, Lymphocytes % 8.7 L, Monocytes % 5.9, Eosinophils % 1.9, Basophils % 1.0, Absolute Granulocytes 7.5 H, Absolute Lymphocytes 0.8 L, Absolute Monocytes 0.5, Absolute Eosinophils 0.2, Absolute Basophils 0.1 Assessment/Plan Assessment: Mr Liu is a 71-year-old gentleman with a past medical history of type I diabetes on insulin pump (complicated by neuropathy, retinopathy and nephropathy ), complete heart block status post pacemaker, PVD previous admission to [facility] 2 weeks prior to admission for 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 He was initially admitted on the telemetry service and then subseuquently transferred to the CRCU due to hypoxia and tachycardia. He is admitted in the CRCU and was then transferred to after disscussions of comfort measures. Patient presented with siginficant improvement in mental condition while in floor and accordingly the disscusion of performing surgery was reconsidered. Acute on chronic hypoxemic respiratory failure This was considered multifactorial, including CHF, acute lung injury possibly bilateral aspiration pneumonitis. Patient also received broad spectrum antibiotics and was currently off antibiotics per ID. CXR 04/15/17: worsening of consolidation - Continues to be on high flow oxygen, plan to change to NC as tolerated - patient still DNI/DNR confirmed with family - hold off antibiotics for new consolidation (aspiration vs HCAP), follow ID pulm - received extra dose Lasix - CXR repeat this evening, depending on result will consider decrease Lasix - daily CXR, PO lasix with improvement Significant Peripharel Vascular Disease Complicated with osteomyelitis and gangrene of foot s/p MRSA OM; Right foot gangrene involving second and third toe. This morning, the patient may be considering amputation. His primary care physician Dr. Adame suggested that he will likely need a BKA instead of the TMA for a better prognostic outcome. Patient is currently thinking about whether to proceed for a procedure vs not. - patient s/p TMA - Pysch and ID on board - Patient does not have capacity to make medical desicion, will evaluate daily - will follow cutlure results from surgery (it apeared that there may not be good specimen) - Continue vanc per ID - Consider PICC line placement - vanc thr level Type II ME Over the course of the admission, Troponin peaked at 6.64 which was thought be likely due to type 2 ME. No EKG changes s/o ME. Component of volume overload, PRN diuresis while monitoring the serum creatinine closely. Echocardiogram: Left ventricular cavity size at the upper limits of normal. Mild to moderate concentric left ventricular hypertrophy. The inferior and posterior calderon are akinetic. The septum and apex contracts fairly well. Estimated ejection fraction is 35-40%. Catheter/pacemaker wire in the right ventricular cavity. Catheter/pacemaker wire in the right atrial appendage. Mild left atrial dilatation. Moderate thickening/calcification of the mitral valve leaflets. Moderate mitral annular calcification. Mild mitral regurgitation. Focal thickening of the aortic valve cusps. No aortic stenosis. Right ventricular systolic pressure estimated to be elevated at 55- 60 mmHg. Moderate to severe pulmonary hypertension. Left pleural effusion. Dilated IVC. Dr Avery, tow motor driver on board, Will monitor Cr, and further dosing changes if warranted. PARRIS on CKD Could be related to DM, he also had recent angiogram that could precipitate PARRIS. Appears to be improving. Sr Cr 1.8--> 1.1. Will continue to monitor. Type 1 Diabetes Complicated with diabetic nephropathy, neuropathy, peripheral vascular disease and retinopathy. Endocrinology on board, appreciate recomendations. - updated insuline dose Skin: Unstageable pressure ulcer noted on right upper buttocks which was present on admission. Continue wound care recommendations. DNR/DNI Con carb diet 1, ground and thin DVT PPx: Heparin Problem List: 1. Acute and chronic respiratory failure with hypoxia 2. Cellulitis of right foot Pain Ratin Pain Location: None Pain Goal: Pain 4 or less Pain Plan: continue current plan Tomorrow's Labs & Rationales: CBC BEP Jeff Haas 04/17/17 1120: Attending MD Review Statement Attending Statement Attending MD Statement: examined this patient, discuss w/resident/PA/HEALTHCARE SPECIALIST, agreed w/resident/PA/HEALTHCARE SPECIALIST, discussed with family, reviewed EMR data (avail), discussed with nursing, discussed with case mgmt, reviewed images, amended to note Attending Assessment/Plan: Patient seen/examined bedside. Patient failed speech/swallow , discussed with son who agrees to comfort feeding for now despite risks of aspiration. No feeding tube. Patient underwent TMA, episode of respiratroy failure with pulmonary edema resolving with iv diuretics. CTA negative for PE. Cardiac enzymes flat. Titrate oxygen with nasal cannula if able to tolerate. Abx as per ID. Cardiology/pulmonary/podiatry/vascular surgery/ID involved in this complex scenario as multidisplinary approach. Closely monitor patient and call me if any changes. Discussed plan of care joey MANLEY. DNR/DNI. Family wishes conservative management.
--- NOTE | 2017-04-17 11:13 | PN- Diabetes ---
Assessment/Plan Diabetes Assessment: 70 y/o male, Hx of DM type 1 diagnosed when he was 14 years old. He was on an insulin pump with basal rate running at 0.9 units per hour in the past. His diabetes was complicated by neuropathy, retinopathy, nephropathy. Patient presented to the ED after sustaining an unwitnessed fall. He was admitted for positive troponin with peak troponin of 6.64, ongoing right foot infection and gangrene of 2nd toe and 3rd toe. The procedure for amputation of foot was done on 04/14/2017. He is NPO. D5W at 50 ml/hour was discontinued due to respiratory distress. He received several doses of lasix. He is on Levemir 5 units twice a day and Novolog every 4 hours. His FSGs were 235, 343, 358, 298 and 235. He was on D51/2 NS at 50 ml/hour on 04/16/2017. Now he is on NS at 50 ml/ hour instead. He didn't pass the swallow evaluation. Plan: 1. increase Levemir to 7 units twice a day; 2. adjust Novolog coverage every 4 hours--detail see the inpatient DM order; 3. monitor FSGs and electrolytes. will follow. Inpatient Diabetes Orders Every 4 Hours: Bolus Insulin: Novolog < 80 mg/dl: no coverage 80-100 mg/dl: no coverage 101-120 mg/dl: no coverage 121-150 mg/dl: no coverage 151-200 mg/dl: 2 units 201-250 mg/dl: 3 units 251-300 mg/dl: 4 units 301-350 mg/dl: 6 units 351-400 mg/dl: 8 units > 400 mg/dl: 10 units Subjective Subjective: He is more alert this morning. Objective Last 24 Hrs of Vital Signs/I&O Vital Signs Date Time Temp Pulse Resp B/P B/P Pulse O2 O2 Flow FiO2 Mean Ox Delivery Rate 04/17 0925 99 Nasal 40% Cannula 04/17 0809 97.9 66 20 110/60 04/17 0808 97.9 66 20 110/60 04/17 0728 97.9 66 20 110/60 98 40% 04/17 0238 99 Nasal 50% Cannula 04/16 2215 97.9 78 20 128/68 100 Nasal 40% Cannula 04/16 2020 97 Nasal 40% Cannula 04/16 1800 99 Nasal 50% Cannula 04/16 1600 96 Nasal 50% Cannula 04/16 1352 98.4 85 20 138/88 97 Nasal 50% Cannula Intake & Output 04/17 1600 04/17 0800 04/17 0000 Intake Total 425 430 Output Total 350 825 Balance 75 -395 Intake, IV 400 420 Intake, Oral 25 10 Number 0 Bowel Movements Output, Urine 350 825 Findings Pertinent Lab/Fransisco Results: Laboratory Tests 04/17 0627 Chemistry Sodium (137 - 145 mmol/L) 144 Potassium (3.5 - 5.1 mmol/L) 3.5 Chloride (98 - 107 mmol/L) 101 Carbon Dioxide (22 - 30 mmol/L) 35 H Anion Gap (5 - 16) 8 BUN (9 - 20 mg/dL) 36 H Creatinine (0.7 - 1.2 mg/dL) 1.1 Estimated GFR (>60 ml/min) > 60 BUN/Creatinine Ratio (7 - 25 %) 32.7 H Hematology CBC w Diff NO MAN DIFF REQ WBC (4.8 - 10.8 /CUMM) 9.1 RBC (4.70 - 6.10 /CUMM) 2.77 L Hgb (14.0 - 18.0 G/DL) 8.4 L Hct (42 - 52 %) 25.3 L MCV (80.0 - 94.0 FL) 91.3 MCH (27.0 - 31.0 PG) 30.5 MCHC (33.0 - 37.0 G/DL) 33.4 RDW (11.5 - 14.5 %) 14.5 Plt Count (130 - 400 /CUMM) 455 H MPV (7.4 - 10.4 FL) 8.6 Gran % (42.2 - 75.2 %) 82.5 H Lymphocytes % (20.5 - 51.1 %) 8.7 L Monocytes % (1.7 - 9.3 %) 5.9 Eosinophils % (0 - 5 %) 1.9 Basophils % (0.0 - 2.0 %) 1.0 Absolute Granulocytes (1.4 - 6.5 /CUMM) 7.5 H Absolute Lymphocytes (1.2 - 3.4 /CUMM) 0.8 L Absolute Monocytes (0.10 - 0.60 /CUMM) 0.5 Absolute Eosinophils (0.0 - 0.7 /CUMM) 0.2 Absolute Basophils (0.0 - 0.2 /CUMM) 0.1
--- NOTE | 2017-04-17 12:33 | RADIOLOGY REPORT ---
EXAMINATION: XR PORTABLE CHEST CLINICAL INFORMATION: Follow-up of fluid overload. COMPARISON: Chest done on 04/16/2017. TECHNIQUE: Portable frontal view of the chest was obtained. FINDINGS: Compared to most recent prior study, there is mild improved aeration noted bilaterally. Significant residual airspace disease is noted at right perihilar, right lower and left mid to lower lung field with persistent stable small bilateral pleural effusions. Dual lead pacer wires are present, appear intact. The cardiomediastinal silhouette is mildly enlarged, unchanged. No new abnormalities. IMPRESSION: Mild improved aeration is noted bilaterally. Otherwise no significant interval change.
--- NOTE | 2017-04-17 13:10 | PN- Infect Dx ---
Subjective Subjective: Afebrile. He does report mild pain in the right foot. Objective Last 24 Hrs of Vital Signs/I&O Vital Signs Date Time Temp Pulse Resp B/P B/P Pulse O2 O2 Flow FiO2 Mean Ox Delivery Rate 04/17 924 99 Nasal 40% Cannula 04/17 0809 97.9 66 20 110/60 04/17 0808 97.9 66 20 110/60 04/17 0728 97.9 66 20 110/60 98 40% 04/17 0238 99 Nasal 50% Cannula 04/16 2215 97.9 78 20 128/68 100 Nasal 40% Cannula 04/16 2020 97 Nasal 40% Cannula 04/16 1800 99 Nasal 50% Cannula 04/16 1600 96 Nasal 50% Cannula 04/16 1352 98.4 85 20 138/88 97 Nasal 50% Cannula Intake & Output 04/17 1600 04/17 0800 04/17 0000 Intake Total 425 430 Output Total 350 825 Balance 75 -395 Intake, IV 400 420 Intake, Oral 25 10 Number 0 Bowel Movements Output, Urine 350 825 Physical Exam Other Physical Findings: He is awake and alert in no acute distress on high flow oxygen Lungs are clear Heart regular rhythm with no murmur Extremities right foot dressing intact Land catheter remains in place Results Last 24 Hours of Lab Results: Laboratory Tests 04/17 626 Chemistry Sodium (137 - 145 mmol/L) 144 Potassium (3.5 - 5.1 mmol/L) 3.5 Chloride (98 - 107 mmol/L) 101 Carbon Dioxide (22 - 30 mmol/L) 35 H Anion Gap (5 - 16) 8 BUN (9 - 20 mg/dL) 36 H Creatinine (0.7 - 1.2 mg/dL) 1.1 Estimated GFR (>60 ml/min) > 60 BUN/Creatinine Ratio (7 - 25 %) 32.7 H Hematology CBC w Diff NO MAN DIFF REQ WBC (4.8 - 10.8 /CUMM) 9.1 RBC (4.70 - 6.10 /CUMM) 2.77 L Hgb (14.0 - 18.0 G/DL) 8.4 L Hct (42 - 52 %) 25.3 L MCV (80.0 - 94.0 FL) 91.3 MCH (27.0 - 31.0 PG) 30.5 MCHC (33.0 - 37.0 G/DL) 33.4 RDW (11.5 - 14.5 %) 14.5 Plt Count (130 - 400 /CUMM) 455 H MPV (7.4 - 10.4 FL) 8.6 Gran % (42.2 - 75.2 %) 82.5 H Lymphocytes % (20.5 - 51.1 %) 8.7 L Monocytes % (1.7 - 9.3 %) 5.9 Eosinophils % (0 - 5 %) 1.9 Basophils % (0.0 - 2.0 %) 1.0 Absolute Granulocytes (1.4 - 6.5 /CUMM) 7.5 H Absolute Lymphocytes (1.2 - 3.4 /CUMM) 0.8 L Absolute Monocytes (0.10 - 0.60 /CUMM) 0.5 Absolute Eosinophils (0.0 - 0.7 /CUMM) 0.2 Absolute Basophils (0.0 - 0.2 /CUMM) 0.1 Last 24 Hours of [place] Results: No new cultures Recent Imaging Studies: Chest x-ray April 17 reveals mild improved aeration bilaterally Assessment/Plan ID Impression: Iimproved, status post further diuresis, with some improvement on his chest x- ray, though he remains on high flow oxygen. He remains afebrile with a normal white blood cell count on Vancomycin for possible residual soft tissue infection of the right foot status post TMA 3 days ago, with no concern by Podiatry for any residual osteomyelitis. Suggestion: 1. Further management of his pulmonary edema per Cardiology 2. Remove Land catheter if okay with Cardiology 3. Vancomycin trough level with his next dose 4. Continue Vancomycin to plan on a one week course of treatment Shelley Alexander MD will be covering until April 27
--- NOTE | 2017-04-17 13:47 | PN- Cardiology ---
Subjective Subjective: The patient is more alert today. He is wanting to have something to eat but he has failed swallow evals. His breathing is much easier. His chest x-ray looks a little improved aeration. Objective Vital Signs and I&Os Vital Signs Date Time Temp Pulse Resp B/P B/P Pulse O2 O2 Flow FiO2 Mean Ox Delivery Rate 04/17 0925 99 Nasal 40% Cannula 04/17 0809 97.9 66 20 110/60 04/17 0808 97.9 66 20 110/60 04/17 0728 97.9 66 20 110/60 98 40% 04/17 0238 99 Nasal 50% Cannula 04/16 2215 97.9 78 20 128/68 100 Nasal 40% Cannula 04/16 2020 97 Nasal 40% Cannula 04/16 1800 99 Nasal 50% Cannula 04/16 1600 96 Nasal 50% Cannula 04/16 1352 98.4 85 20 138/88 97 Nasal 50% Cannula Intake & Output 04/17 1600 04/17 0800 04/17 0000 04/16 1600 04/16 0800 04/16 0000 Intake Total 425 430 50 0 400 Output Total 350 042 274 0041 900 Balance 75 -395 -850 -1200 -500 Intake, IV 400 420 50 0 280 Intake, Oral 25 10 0 0 120 Number 0 0 0 Bowel Movements Output, Urine 350 864 551 6832 900 Patient 165 lb Weight Physical Exam: He is more alert HEENT exam is normal Chest reveals decreased breath sounds but no rales Heart regular rhythm, soft heart sounds Extremities unchanged Current Medications: Current Medications Sig/Coral Start time Last Medication Dose Route Stop Time Status Admin Acetaminophen 500 MG TID 04/03 1156 AC 04/16 PO 2154 Albuterol Sulfate 3 ML Q4P PRN 04/15 0800 AC 04/15 INH 0755 Amlodipine Besylate 5 MG DAILY 04/03 1200 AC 04/14 PO 1023 Aspirin 81 MG DAILY 04/04 1000 AC 04/13 PO 1022 Dextrose/Sodium 1,000 ML Q20H 04/16 1230 DC 04/16 Chloride IV 1354 Fluticasone 2 SPRAY DAILY 04/03 1155 AC 04/17 Propionate THOMAS 0809 Furosemide 40 MG BID 04/16 2200 AC 04/17 IV 0806 Furosemide 40 MG DAILY 04/16 1000 DC 04/16 IV 1025 Heparin Sodium 5,000 UNIT Q8 04/15 2199 AC 04/17 (Porcine) SC 1326 Insulin Aspart 0 Q4 04/16 1000 AC 04/17 SC 1020 Insulin Detemir 7 UNITS BID 04/17 1000 AC 04/17 SC 1020 Insulin Detemir 5 UNITS BID 04/15 2200 DC 04/16 SC 2217 Metoprolol Succinate 25 MG DAILY 04/03 1714 AC 04/14 PO 1022 Morphine Sulfate 2 MG Q4P PRN 04/04 1845 AC 04/11 IV 0454 Omeprazole 40 MG DAILY AC 04/11 0700 AC 04/15 PO 0550 Povidone Iodine 1 MEHRAN DAILY 04/13 1000 AC 04/17 TOP 0809 Pregabalin 50 MG TID 04/03 1155 AC 04/16 PO 2153 Sodium Chloride 1,000 ML Q13H 04/17 0045 AC 04/17 IV 0054 Vancomycin HCl 1,000 MG 1600 04/16 1600 AC 04/16 Dextrose/Water 250 ML IV 1613 Results Last 48 Hrs of Labs/Mics: Laboratory Tests 04/17/17 0627: Anion Gap 8, Estimated GFR > 60, BUN/Creatinine Ratio 32.7 H, CBC w Diff NO MAN DIFF REQ, RBC 2.77 L, MCV 91.3, MCH 30.5, MCHC 33.4, RDW 14.5, MPV 8.6, Gran % 82.5 H, Lymphocytes % 8.7 L, Monocytes % 5.9, Eosinophils % 1.9, Basophils % 1.0, Absolute Granulocytes 7.5 H, Absolute Lymphocytes 0.8 L, Absolute Monocytes 0.5, Absolute Eosinophils 0.2, Absolute Basophils 0.1 04/16/17 0915: ESR Westergren 93 H 04/16/17 0604: Anion Gap 6, Estimated GFR > 60, BUN/Creatinine Ratio 30.0 H, CBC w Diff NO MAN DIFF REQ, RBC 2.76 L, MCV 91.9, MCH 30.4, MCHC 33.0, RDW 14.4, MPV 8.5, Gran % 81.0 H, Lymphocytes % 9.5 L, Monocytes % 6.2, Eosinophils % 2.1, Basophils % 1.2, Absolute Granulocytes 7.7 H, Absolute Lymphocytes 0.9 L, Absolute Monocytes 0.6, Absolute Eosinophils 0.2, Absolute Basophils 0.1 04/16/17 0000: Troponin I 0.12 *H 04/15/17 1650: Anion Gap 13, Estimated GFR > 60, BUN/Creatinine Ratio 28.2 H, Troponin I 0.14 *H Recent Imaging Studies: PATIENT: JIM WASSERMAN PRESENT AGE: 71 PATIENT ACCOUNT NO: [id number] : 47 LOCATION: B ORDERING PHYSICIAN: Saravanan Rashid MD SERVICE DATE: 04/17/17- EXAM TYPE: RAD - XRY-PORTABLE CHEST XRAY EXAMINATION: XR PORTABLE CHEST CLINICAL INFORMATION: Follow-up of fluid overload. COMPARISON: Chest done on 04/16/2017. TECHNIQUE: Portable frontal view of the chest was obtained. FINDINGS: Compared to most recent prior study, there is mild improved aeration noted bilaterally. Significant residual airspace disease is noted at right perihilar, right lower and left mid to lower lung field with persistent stable small bilateral pleural effusions. Dual lead pacer wires are present, appear intact. The cardiomediastinal silhouette is mildly enlarged, unchanged. No new abnormalities. IMPRESSION: Mild improved aeration is noted bilaterally. Otherwise no significant interval change. DICTATED BY: Vladimir Lazo MD DATE/TIME DICTATED:04/17/171225 ASSOCIATE EDITOR:INES DATE/TIME TRANSCRIBED:04/17/171225 CONFIDENTIAL, DO NOT COPY WITHOUT APPROPRIATE AUTHORIZATION. <Electronically signed in Other Vendor System> SIGNED BY: Vladimir Lazo MD 04/17/17 1233 Assessment/Plan Assessment/Plan The patient definitely looks improved in terms of mentation and respiration. I think this is due to diuresis. I would continue him on IV diuretics and get daily chest x-rays and switch him to by mouth diuretics when his chest x-ray is clear and saturations satisfactory. At that point he will likely be ready for rehab. Continue telemetry? Not applicable
[2017-04-17 16:18] VITALS: BP 130/70
[2017-04-17 22:53] VITALS: BP 130/84
--- NOTE | 2017-04-18 01:21 | PN- Housestaff ---
See Addendum Subjective Follow-up For: Acute hypoxic respiratory failure Acute lung injury Severe peripheral vascular disease Right leg gangrene Type 1 diabetes Renal insufficiency Subjective: Patient visited today, was lying in bed comfortably in no acute distress, was alert and oriented. Patient passed swallow patient yesterday and we started diet. No fever or chills, patient is on 40% HF oxygen (currently reducing the percentage) with plan to change to NC, no chest pain, no other events. Chest x-ray showed mild improvement, no change in IV diuretics for now we'll follow doing daily chest x-rays. Fluids DCed as patient is eating and drinking. Review of Systems Constitutional: Reports: see HPI. Objective Last 24 Hrs of Vital Signs/I&O Vital Signs Date Time Temp Pulse Resp B/P B/P Pulse O2 O2 Flow FiO2 Mean Ox Delivery Rate 04/18 0000 Nasal 40% Cannula 04/17 2253 98.4 72 20 130/84 92 Nasal Cannula 04/17 1618 97.9 76 18 130/70 98 04/17 1600 Nasal Cannula 04/17 1450 98 Nasal 40% Cannula 04/17 0925 99 Nasal 40% Cannula 04/17 0809 97.9 66 20 110/60 04/17 0808 97.9 66 20 110/60 04/17 0728 97.9 66 20 110/60 98 40% 04/17 0238 99 Nasal 50% Cannula Intake & Output 04/18 0800 04/18 0000 04/17 1600 Intake Total 1120 200 Output Total 1300 Balance -180 200 Intake, IV 400 200 Intake, Oral 720 Output, Urine 1300 Physical Exam General Appearance: Alert, Oriented X3, Cooperative, No Acute Distress Skin: Bilateral LE in dressing, RLE s/p TMA Skin Temp/Moisture Exam: Warm/Dry Sepsis Skin Exam (color): Normal for Ethnicity HEENT: Atraumatic, EOMI, Mucous Membr. moist/pink Cardiovascular: Normal S1, Normal S2 Lungs: Normal Air Movement, bilateral crackles, improved Abdomen: Soft, No Tenderness Neurological: Normal Speech Extremities: as noted above Current Medications: Current Medications Sig/Coral Start time Last Medication Dose Route Stop Time Status Admin Acetaminophen 650 MG ONCE ONE 04/17 2330 DC 04/17 PO 04/17 2331 2342 Acetaminophen 500 MG TID 04/03 1156 AC 04/17 PO 1630 Albuterol Sulfate 3 ML Q4P PRN 04/15 0800 AC 04/15 INH 0755 Amlodipine Besylate 5 MG DAILY 04/03 1200 AC 04/14 PO 1023 Aspirin 81 MG DAILY 04/04 1000 AC 04/13 PO 1022 Fluticasone 2 SPRAY DAILY 04/03 1155 AC 04/17 Propionate THOMAS 0809 Furosemide 40 MG BID 04/16 2200 AC 04/17 IV 2210 Heparin Sodium 5,000 UNIT Q8 04/15 2200 AC 04/17 (Porcine) SC 2210 Insulin Aspart 0 TIDAC/HS 04/17 1700 AC SC Insulin Aspart 0 Q4 04/16 1000 DC 04/17 SC 1020 Insulin Detemir 7 UNITS BID 04/17 1000 AC 04/17 SC 2207 Insulin Detemir 5 UNITS BID 04/15 2200 DC 04/16 SC 2217 Metoprolol Succinate 25 MG DAILY 04/03 1714 AC 04/14 PO 1022 Morphine Sulfate 2 MG Q4P PRN 04/04 1845 DC 04/11 IV 0454 Omeprazole 40 MG DAILY AC 04/11 0700 AC 04/15 PO 0550 Patient Medication 1 ED ONE ONE 04/17 1645 DC Teaching ED 04/17 1646 Povidone Iodine 1 MEHRAN DAILY 04/13 1000 AC 04/17 TOP 0809 Pregabalin 50 MG TID 04/03 1155 AC 04/17 PO 2207 Sodium Chloride 1,000 ML Q13H 04/17 0045 AC 04/17 IV 0054 Vancomycin HCl 1,000 MG 1600 04/16 1600 AC 04/17 Dextrose/Water 250 ML IV 1630 Last 24 Hrs of Lab/[place] Results Last 24 Hrs of Labs/Mics: Laboratory Tests 04/17/17 1555: Random Vancomycin 7.7 04/17/17 0627: Anion Gap 8, Estimated GFR > 60, BUN/Creatinine Ratio 32.7 H, CBC w Diff NO MAN DIFF REQ, RBC 2.77 L, MCV 91.3, MCH 30.5, MCHC 33.4, RDW 14.5, MPV 8.6, Gran % 82.5 H, Lymphocytes % 8.7 L, Monocytes % 5.9, Eosinophils % 1.9, Basophils % 1.0, Absolute Granulocytes 7.5 H, Absolute Lymphocytes 0.8 L, Absolute Monocytes 0.5, Absolute Eosinophils 0.2, Absolute Basophils 0.1 Assessment/Plan Assessment: Mr Liu is a 71-year-old gentleman with a past medical history of type I diabetes on insulin pump (complicated by neuropathy, retinopathy and nephropathy ), complete heart block status post pacemaker, PVD previous admission to [facility] 2 weeks prior to admission for 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 He was initially admitted on the telemetry service and then subseuquently transferred to the [facility] due to hypoxia and tachycardia. After admission to [facility] patient transferred to after disscussions of comfort measures. Patient presented with siginficant improvement in mental condition while in floor and accordingly the disscusion of performing surgery was reconsidered. Acute on chronic hypoxemic respiratory failure This was considered multifactorial, including CHF, acute lung injury possibly bilateral aspiration pneumonitis. Patient also received broad spectrum antibiotics and was currently off antibiotics per ID. CXR 04/15/17: worsening of consolidation CXR: 04/17/17: mild improvement - Continues to be on high flow oxygen, plan to change to NC as tolerated - patient still DNI/DNR confirmed with family - hold off antibiotics for new consolidation (aspiration vs HCAP), follow ID pulm - received extra dose Lasix, currently BID - daily CXR, PO lasix with improvement Significant Peripharel Vascular Disease Complicated with osteomyelitis and gangrene of foot s/p MRSA OM; Right foot gangrene involving second and third toe. This morning, the patient may be considering amputation. His primary care physician Dr. Adame suggested that he needed a BKA instead of the TMA for a better prognostic outcome however due to anesthesia consideration and patient respiratory condition, TMA was performed. - patient s/p TMA - Pysch and ID on board - Patient does not have capacity to make medical desicion, will evaluate daily - will follow cutlure results from surgery (it apeared that there may not be good specimen) - Continue vanc per ID - Consider PICC line placement - vanc thr level Type II ID Over the course of the admission, Troponin peaked at 6.64 which was thought be likely due to type 2 ID. No EKG changes s/o ID. Component of volume overload, PRN diuresis while monitoring the serum creatinine closely. Echocardiogram: Left ventricular cavity size at the upper limits of normal. Mild to moderate concentric left ventricular hypertrophy. The inferior and posterior calderon are akinetic. The septum and apex contracts fairly well. Estimated ejection fraction is 35-40%. Catheter/pacemaker wire in the right ventricular cavity. Catheter/pacemaker wire in the right atrial appendage. Mild left atrial dilatation. Moderate thickening/calcification of the mitral valve leaflets. Moderate mitral annular calcification. Mild mitral regurgitation. Focal thickening of the aortic valve cusps. No aortic stenosis. Right ventricular systolic pressure estimated to be elevated at 55- 60 mmHg. Moderate to severe pulmonary hypertension. Left pleural effusion. Dilated IVC. Dr Avery, derrick hand on board, Will monitor Cr, and further dosing changes if warranted. - continue diuresis per cardiology PARRIS on CKD Could be related to DM, he also had recent angiogram that could precipitate PARRIS. Appears to be improving. Sr Cr 1.8--> ~1. Will continue to monitor. - continue to monitor Cr Type 1 Diabetes Complicated with diabetic nephropathy, neuropathy, peripheral vascular disease and retinopathy. Endocrinology on board, appreciate recomendations. - updated insuline dose daily per Endo note Skin: Unstageable pressure ulcer noted on right upper buttocks which was present on admission. Continue wound care recommendations. DNR/DNI Con carb diet 1, ground and thin DVT PPx: Heparin Problem List: 1. Acute and chronic respiratory failure with hypoxia 2. Peripheral vascular disease 3. Osteomyelitis 4. Cellulitis Pain Ratin Pain Location: None Pain Goal: Pain 4 or less Pain Plan: continue current plan Tomorrow's Labs & Rationales: CBC BEP
[2017-04-18 07:29] VITALS: BP 120/80
[2017-04-18 09:26] LABS: ABSOLUTE BASOPHIL COUNT 0.1 /CUMM (0.0-0.2); ABSOLUTE EOSINOPHIL COUNT 0.2 /CUMM (0.0-0.7); ABSOLUTE GRANULOCYTE CT 8.1 /CUMM (1.4-6.5); ABSOLUTE MONOCYTE COUNT 0.5 /CUMM (0.10-0.60); BASOPHIL % 0.8 % (0.0-2.0); EOSINOPHIL % 2.3 % (0-5); GRANULOCYTE % 81.5 % (42.2-75.2); HEMATOCRIT 24.1 % (42-52); MEAN CORPUSCULAR HGB 30.6 PG (27.0-31.0); MEAN CORPUSCULAR HGB CONC 33.5 G/DL (33.0-37.0); MEAN CORPUSCULAR VOLUME 91.3 FL (80.0-94.0); MEAN PLATELET VOLUME 8.6 FL (7.4-10.4); PLATELET COUNT 446 /CUMM (130-400); RBC DISTRIBUTION WIDTH 14.1 % (11.5-14.5); RED BLOOD CELL CT 2.65 /CUMM (4.70-6.10)
--- NOTE | 2017-04-18 13:45 | PN- Infect Dx ---
Subjective Subjective: No fever/chills. Comfortable. Review of Systems Comments: 12 points reviewed as noted, otherwise neg. Objective Last 24 Hrs of Vital Signs/I&O Vital Signs Date Time Temp Pulse Resp B/P B/P Pulse O2 O2 Flow FiO2 Mean Ox Delivery Rate 04/18 0951 22 95 Nasal 3.0L Cannula 04/18 0942 78 132/80 04/18 0915 98 Nasal 3.0L Cannula 04/18 0821 95 Nasal 35% Cannula 04/18 0729 98.2 67 20 120/80 98 Nasal Cannula 04/18 0139 99 Nasal 35% Cannula 04/18 0000 Nasal 40% Cannula 04/17 2253 98.4 72 20 130/84 92 Nasal Cannula 04/17 1618 97.9 76 18 130/70 98 04/17 1600 Nasal Cannula 04/17 1450 98 Nasal 40% Cannula Intake & Output 04/18 1600 04/18 0800 04/18 0000 Intake Total 400 1120 Output Total 750 1300 Balance -350 -180 Intake, IV 400 400 Intake, Oral 720 Number 1 Bowel Movements Output, Urine 750 1300 Patient 167 lb Weight Weight Bed scale Measurement Method Physical Exam Other Physical Findings: General Appearance: Alert, Oriented X3, Cooperative, No Acute Distress Skin: warm and dry Skin Temp/Moisture Exam: Warm/Dry Sepsis Skin Exam (color): Normal for Ethnicity HEENT: Atraumatic, EOMI, Mucous Membr. moist/pink Cardiovascular: Normal S1, Normal S2 Lungs: Normal Air Movement, bilateral crackles, improved Abdomen: Soft, No Tenderness, Land in place Neurological: Normal Speech Extremities: Bilateral LE in dressing, RLE s/p TMA Results Last 24 Hours of Lab Results: Laboratory Tests 04/18 04/17 0800 1555 Chemistry Sodium (137 - 145 mmol/L) 141 Potassium (3.5 - 5.1 mmol/L) 3.3 L Chloride (98 - 107 mmol/L) 97 L Carbon Dioxide (22 - 30 mmol/L) 35 H Anion Gap (5 - 16) 8 BUN (9 - 20 mg/dL) 26 H Creatinine (0.7 - 1.2 mg/dL) 1.0 Estimated GFR (>60 ml/min) > 60 BUN/Creatinine Ratio (7 - 25 %) 26.0 H Hematology CBC w Diff NO MAN DIFF REQ WBC (4.8 - 10.8 /CUMM) 10.0 RBC (4.70 - 6.10 /CUMM) 2.65 L Hgb (14.0 - 18.0 G/DL) 8.1 L Hct (42 - 52 %) 24.1 L MCV (80.0 - 94.0 FL) 91.3 MCH (27.0 - 31.0 PG) 30.6 MCHC (33.0 - 37.0 G/DL) 33.5 RDW (11.5 - 14.5 %) 14.1 Plt Count (130 - 400 /CUMM) 446 H MPV (7.4 - 10.4 FL) 8.6 Gran % (42.2 - 75.2 %) 81.5 H Lymphocytes % (20.5 - 51.1 %) 10.5 L Monocytes % (1.7 - 9.3 %) 4.9 Eosinophils % (0 - 5 %) 2.3 Basophils % (0.0 - 2.0 %) 0.8 Absolute Granulocytes (1.4 - 6.5 /CUMM) 8.1 H Absolute Lymphocytes (1.2 - 3.4 /CUMM) 1.0 L Absolute Monocytes (0.10 - 0.60 /CUMM) 0.5 Absolute Eosinophils (0.0 - 0.7 /CUMM) 0.2 Absolute Basophils (0.0 - 0.2 /CUMM) 0.1 Toxicology Random Vancomycin (ug/ml) 7.7 Last 24 Hours of [place] Results: #: [id number] SONJA: 04/04/17-1499 STATUS: COMP RECD: 04/04/17-[address]: Merry LOZANO,Adrienne SOURCE: UPPER RESP ENTR: 04/04/17-[address]: Tamica LOZANO,Jackie SPDESC: NOSTRILS Paolo LOZANO,Deja ORDERED: ACT SURV NARES Procedure Result > ACTIVE SURVEILLANCE CULTURE Final 04/06/17 METH RESIST STAPH AUREUS ISOLATED Called to/Readback by OLGA by LAB.CL 04/06/1744 Recent Imaging Studies: EXAM TYPE: RAD - XRY-PORTABLE CHEST XRAY EXAMINATION: XR PORTABLE CHEST CLINICAL INFORMATION: Follow-up of fluid overload. COMPARISON: Chest done on 04/16/2017. TECHNIQUE: Portable frontal view of the chest was obtained. FINDINGS: Compared to most recent prior study, there is mild improved aeration noted bilaterally. Significant residual airspace disease is noted at right perihilar, right lower and left mid to lower lung field with persistent stable small bilateral pleural effusions. Dual lead pacer wires are present, appear intact. The cardiomediastinal silhouette is mildly enlarged, unchanged. No new abnormalities. IMPRESSION: Mild improved aeration is noted bilaterally. Otherwise no significant interval change. 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 Complicated hospital course. Ac resp failure/treated for aspiration pneumonitis; improved, status post further diuresis, with some improvement on his chest x-ray, though he remains on high flow oxygen. He remains afebrile with a normal white blood cell count on Vancomycin for possible residual soft tissue infection of the right foot status post TMA 4 days ago, with no concern by Podiatry for any residual osteomyelitis. Suggestion: 1. Sputum cx if developing productive cough. 2. Vancomycin trough this am is subtherapeutic; goal trough 10-15 3. Increase iv vancomycin to 1.25 gm q 12 h, in order to complete total 7 days post TMA providing healing well.
--- NOTE | 2017-04-18 13:53 | PN- Diabetes ---
Assessment/Plan Diabetes Assessment: 70 y/o male, Hx of DM type 1 diagnosed when he was 14 years old. He was on an insulin pump with basal rate running at 0.9 units per hour in the past. His diabetes was complicated by neuropathy, retinopathy, nephropathy. Patient presented to the ED after sustaining an unwitnessed fall. He was admitted for positive troponin with peak troponin of 6.64, ongoing right foot infection and gangrene of 2nd toe and 3rd toe. The procedure for amputation of foot was done on 04/14/2017. He is on Levemir 7 units twice a day and Novolog every 4 hours. His FSGs were 204, 119, 115 and 80. He had breakfast and Novolog coverage was changed to meal coverage. Plan: 1. decrease Levemir to 6 units twice a day; 2. continue the current Novolog coverage before meals; 3. monitor FSGs. 4. replete K; 5. monitor electrolytes. will follow. Subjective Subjective: He feels much better. He is alert and oriented. Objective Last 24 Hrs of Vital Signs/I&O Vital Signs Date Time Temp Pulse Resp B/P B/P Pulse O2 O2 Flow FiO2 Mean Ox Delivery Rate 04/18 0951 22 95 Nasal 3.0L Cannula 04/18 0942 78 132/80 04/18 0915 98 Nasal 3.0L Cannula 04/18 0821 95 Nasal 35% Cannula 04/18 0729 98.2 67 20 120/80 98 Nasal Cannula 04/18 0139 99 Nasal 35% Cannula 04/18 0000 Nasal 40% Cannula 04/17 2253 98.4 72 20 130/84 92 Nasal Cannula 04/17 1618 97.9 76 18 130/70 98 04/17 1600 Nasal Cannula 04/17 1450 98 Nasal 40% Cannula Intake & Output 04/18 1600 04/18 0800 04/18 0000 Intake Total 400 1120 Output Total 750 1300 Balance -350 -180 Intake, IV 400 400 Intake, Oral 720 Number 1 Bowel Movements Output, Urine 750 1300 Patient 167 lb Weight Weight Bed scale Measurement Method Findings Pertinent Lab/[place] Results: Laboratory Tests 04/18 04/17 0800 1555 Chemistry Sodium (137 - 145 mmol/L) 141 Potassium (3.5 - 5.1 mmol/L) 3.3 L Chloride (98 - 107 mmol/L) 97 L Carbon Dioxide (22 - 30 mmol/L) 35 H Anion Gap (5 - 16) 8 BUN (9 - 20 mg/dL) 26 H Creatinine (0.7 - 1.2 mg/dL) 1.0 Estimated GFR (>60 ml/min) > 60 BUN/Creatinine Ratio (7 - 25 %) 26.0 H Hematology CBC w Diff NO MAN DIFF REQ WBC (4.8 - 10.8 /CUMM) 10.0 RBC (4.70 - 6.10 /CUMM) 2.65 L Hgb (14.0 - 18.0 G/DL) 8.1 L Hct (42 - 52 %) 24.1 L MCV (80.0 - 94.0 FL) 91.3 MCH (27.0 - 31.0 PG) 30.6 MCHC (33.0 - 37.0 G/DL) 33.5 RDW (11.5 - 14.5 %) 14.1 Plt Count (130 - 400 /CUMM) 446 H MPV (7.4 - 10.4 FL) 8.6 Gran % (42.2 - 75.2 %) 81.5 H Lymphocytes % (20.5 - 51.1 %) 10.5 L Monocytes % (1.7 - 9.3 %) 4.9 Eosinophils % (0 - 5 %) 2.3 Basophils % (0.0 - 2.0 %) 0.8 Absolute Granulocytes (1.4 - 6.5 /CUMM) 8.1 H Absolute Lymphocytes (1.2 - 3.4 /CUMM) 1.0 L Absolute Monocytes (0.10 - 0.60 /CUMM) 0.5 Absolute Eosinophils (0.0 - 0.7 /CUMM) 0.2 Absolute Basophils (0.0 - 0.2 /CUMM) 0.1 Toxicology Random Vancomycin (ug/ml) 7.7
[2017-04-18 14:25] VITALS: BP 122/70
--- NOTE | 2017-04-18 19:08 | PN- Cardiology ---
Subjective Subjective: Awake and alert with no major complaints. Breathing improving. Objective Vital Signs and I&Os Vital Signs Date Time Temp Pulse Resp B/P B/P Pulse O2 O2 Flow FiO2 Mean Ox Delivery Rate 04/18 1600 95 Nasal 3.0L Cannula 04/18 1425 99.4 70 20 122/70 94 Nasal 3.0L Cannula 04/18 0951 22 95 Nasal 3.0L Cannula 04/18 0942 78 132/80 04/18 0915 98 Nasal 3.0L Cannula 04/18 0821 95 Nasal 35% Cannula 04/18 0729 98.2 67 20 120/80 98 Nasal Cannula 04/18 0139 99 Nasal 35% Cannula 04/18 0000 Nasal 40% Cannula 04/17 2253 98.4 72 20 130/84 92 Nasal Cannula Intake & Output 04/18 1600 04/18 0800 04/18 0000 04/17 1600 04/17 0800 04/17 0000 Intake Total 1458 594 4072 200 425 430 Output Total 513 285 5447 350 825 Balance 205 -350 -180 200 75 -395 Intake, IV 125 400 400 200 400 420 Intake, Oral 880 720 25 10 Number 1 0 Bowel Movements Output, Urine 426 288 7235 350 825 Patient 167 lb 164 lb Weight Weight Bed scale Bed scale Measurement Method Physical Exam: General Appearance: Alert, Oriented X3, Cooperative, No Acute Distress Skin Temp/Moisture Exam: Warm/Dry HEENT: Atraumatic, EOMI, Mucous Membr. moist/pink Cardiovascular: Regular Rate, Normal S1, Normal S2 Lungs: scattered bilateral rhonchi Abdomen: Soft, No Tenderness Neurological: Normal / nonfocal Extremities: No edema, Right foot s/p TMA bilateral LE dressing in place Current Medications: Current Medications Sig/Coral Start time Last Medication Dose Route Stop Time Status Admin Acetaminophen 650 MG ONCE ONE 04/17 2330 DC 04/17 PO 04/17 2331 2342 Acetaminophen 500 MG TID 04/03 1156 AC 04/18 PO 1700 Albuterol Sulfate 3 ML Q4P PRN 04/15 0800 AC 04/15 INH 0755 Amlodipine Besylate 5 MG DAILY 04/03 1200 AC 04/18 PO 0942 Aspirin 81 MG DAILY 04/04 1000 AC 04/18 PO 0942 Fluticasone 2 SPRAY DAILY 04/03 1155 AC 04/17 Propionate THOMAS 0809 Furosemide 40 MG BID 04/16 2200 AC 04/18 IV 0942 Heparin Sodium 5,000 UNIT Q8 04/15 2200 AC 04/18 (Porcine) SC 1440 Insulin Aspart 0 TIDAC/HS 04/17 1700 AC 04/18 SC 1700 Insulin Detemir 6 UNITS BID 04/18 1000 AC 04/18 SC 0942 Insulin Detemir 7 UNITS BID 04/17 1000 DC 04/17 SC 2207 Metoprolol Succinate 25 MG DAILY 04/03 1714 AC 04/18 PO 0942 Morphine Sulfate 2 MG Q4P PRN 04/04 1845 DC 04/11 IV 0454 Omeprazole 40 MG DAILY AC 04/11 0700 AC 04/18 PO 0515 Potassium Chloride 20 MEQ ONCE ONE 04/18 1145 DC 04/18 PO 04/18 1146 1233 Povidone Iodine 1 MEHRAN DAILY 04/13 1000 AC 04/18 TOP 0755 Pregabalin 50 MG TID 04/03 1155 AC 04/18 PO 1700 Sodium Chloride 1,000 ML Q13H 04/17 0045 DC 04/18 IV 0753 Vancomycin HCl 1,000 MG Q12 04/18 1145 AC 04/18 Dextrose/Water 250 ML IV 1234 Vancomycin HCl 1,000 MG 1600 04/16 1600 DC 04/17 Dextrose/Water 250 ML IV 1630 Results Last 48 Hrs of Labs/Mics: Laboratory Tests 04/18/17 0800: Anion Gap 8, Estimated GFR > 60, BUN/Creatinine Ratio 26.0 H, CBC w Diff NO MAN DIFF REQ, RBC 2.65 L, MCV 91.3, MCH 30.6, MCHC 33.5, RDW 14.1, MPV 8.6, Gran % 81.5 H, Lymphocytes % 10.5 L, Monocytes % 4.9, Eosinophils % 2.3, Basophils % 0.8, Absolute Granulocytes 8.1 H, Absolute Lymphocytes 1.0 L, Absolute Monocytes 0.5, Absolute Eosinophils 0.2, Absolute Basophils 0.1 04/17/17 1555: Random Vancomycin 7.7 04/17/17 0627: Anion Gap 8, Estimated GFR > 60, BUN/Creatinine Ratio 32.7 H, CBC w Diff NO MAN DIFF REQ, RBC 2.77 L, MCV 91.3, MCH 30.5, MCHC 33.4, RDW 14.5, MPV 8.6, Gran % 82.5 H, Lymphocytes % 8.7 L, Monocytes % 5.9, Eosinophils % 1.9, Basophils % 1.0, Absolute Granulocytes 7.5 H, Absolute Lymphocytes 0.8 L, Absolute Monocytes 0.5, Absolute Eosinophils 0.2, Absolute Basophils 0.1 Assessment/Plan Assessment/Plan Assessment: 1. Acute hypoxic respiratory failure with acute on chronic HFrEF 2. Severe PAD 3. Gangrene right LE 4. DM 5. Renal insufficiency. 6. Slightly worsening anemia 7. Elevated troponin Recommendations: - COntinue present regimen for now; continue diuresis - Monitor I/Os and weights - Followup labs pending with close monitoring of H/H Continue telemetry? No
[2017-04-18 23:28] VITALS: BP 120/70
[2017-04-19 07:01] VITALS: BP 147/79
[2017-04-19 08:15] LABS: ABSOLUTE BASOPHIL COUNT 0.1 /CUMM (0.0-0.2); ABSOLUTE EOSINOPHIL COUNT 0.4 /CUMM (0.0-0.7); ABSOLUTE GRANULOCYTE CT 7.8 /CUMM (1.4-6.5); ABSOLUTE LYMPH COUNT 1.2 /CUMM (1.2-3.4); ABSOLUTE MONOCYTE COUNT 0.5 /CUMM (0.10-0.60); BASOPHIL % 0.7 % (0.0-2.0); EOSINOPHIL % 3.8 % (0-5); GRANULOCYTE % 78.8 % (42.2-75.2); HEMATOCRIT 25.6 % (42-52); MEAN CORPUSCULAR HGB 30.1 PG (27.0-31.0); MEAN CORPUSCULAR HGB CONC 33.2 G/DL (33.0-37.0); MEAN CORPUSCULAR VOLUME 90.8 FL (80.0-94.0); MEAN PLATELET VOLUME 8.7 FL (7.4-10.4); PLATELET COUNT 455 /CUMM (130-400); RBC DISTRIBUTION WIDTH 14.3 % (11.5-14.5); RED BLOOD CELL CT 2.82 /CUMM (4.70-6.10); WHITE BLOOD CELL COUNT 9.9 /CUMM (4.8-10.8)
--- NOTE | 2017-04-19 08:18 | PN- Housestaff ---
Samira Avila MD,[facility] 04/19/17 0817: Subjective Follow-up For: Acute hypoxic respiratory failure Acute lung injury Severe peripheral vascular disease Right leg gangrene Type 1 diabetes Renal insufficiency Subjective: Patient visited today, was lying in bed comfortably in no acute distress, was alert and oriented. High flow change to NC, currently on 4 L. No shortness of breathing saturating well. No fever or chills, no shortness of breathing, no chest pain, no other events. Will do chest x-ray, if improved will change Lasix to by mouth. Review of Systems Constitutional: Reports: see HPI. Objective Last 24 Hrs of Vital Signs/I&O Vital Signs Date Time Temp Pulse Resp B/P B/P Pulse O2 O2 Flow FiO2 Mean Ox Delivery Rate 04/19 0838 78 138/78 04/19 0800 99 Nasal 3.0L Cannula 04/19 0701 97.7 75 18 147/79 100 Nasal 3.0L Cannula 04/19 0000 92 Nasal 3.0L Cannula 04/18 2328 98.0 70 20 120/70 93 Nasal 3.0L Cannula 04/18 2225 96 Nasal 3.0L Cannula 04/18 1600 95 Nasal 3.0L Cannula 04/18 1425 99.4 70 20 122/70 94 Nasal 3.0L Cannula Intake & Output 04/19 1600 04/19 0800 04/19 0000 Intake Total 256 845 Output Total 600 550 Balance -344 295 Intake, IV 20 345 Intake, Oral 236 500 Number 0 Bowel Movements Output, Urine 600 550 Patient 170 lb Weight Weight Bed scale Measurement Method Physical Exam General Appearance: Alert, Oriented X3, Cooperative, No Acute Distress Skin Temp/Moisture Exam: Warm/Dry Sepsis Skin Exam (color): Normal for Ethnicity HEENT: Atraumatic, EOMI, Mucous Membr. moist/pink Cardiovascular: Normal S1, Normal S2 Lungs: improved crackles Abdomen: Soft, No Tenderness Neurological: Normal Speech Extremities: right lower extremity is status post TMA, dressing in place Current Medications: Current Medications Sig/Coral Start time Last Medication Dose Route Stop Time Status Admin Acetaminophen 500 MG TID 04/03 1156 AC 04/18 PO 2129 Albuterol Sulfate 3 ML Q4P PRN 04/15 0800 AC 04/15 INH 0755 Amlodipine Besylate 5 MG DAILY 04/03 1200 AC 04/19 PO 0838 Aspirin 81 MG DAILY 04/04 1000 AC 04/19 PO 0838 Fluticasone 2 SPRAY DAILY 04/03 1155 AC 04/17 Propionate THOMAS 0809 Furosemide 40 MG BID 04/16 2200 AC 04/19 IV 0835 Heparin Sodium 5,000 UNIT Q8 04/15 2200 AC 04/19 (Porcine) SC 1357 Insulin Aspart 0 TIDAC/HS 04/17 1700 AC 04/19 SC 1204 Insulin Detemir 8 UNITS BID 04/19 2200 AC SC Insulin Detemir 2 UNITS ONCE ONE 04/19 1145 DC 04/19 SC 04/19 1146 1204 Insulin Detemir 6 UNITS BID 04/18 1000 DC 04/19 SC 0826 Metoprolol Succinate 25 MG DAILY 04/03 1714 AC 04/19 PO 0838 Omeprazole 40 MG DAILY AC 04/11 0700 AC 04/19 PO 0623 Potassium Chloride 20 MEQ ONCE ONE 04/19 1245 DC 04/19 PO 04/19 1246 1356 Povidone Iodine 1 MEHRAN DAILY 04/13 1000 AC 04/19 TOP 0838 Pregabalin 50 MG TID 04/03 1155 AC 04/19 PO 0835 Vancomycin HCl 1,000 MG Q12 04/18 1145 AC 04/19 Dextrose/Water 250 ML IV 0838 Last 24 Hrs of Lab/[place] Results Last 24 Hrs of Labs/Mics: Laboratory Tests 04/19/17 0645: Anion Gap 8, Estimated GFR > 60, BUN/Creatinine Ratio 20.9, CBC w Diff NO MAN DIFF REQ, RBC 2.82 L, MCV 90.8, MCH 30.1, MCHC 33.2, RDW 14.3, MPV 8.7, Gran % 78.8 H, Lymphocytes % 11.9 L, Monocytes % 4.8, Eosinophils % 3.8, Basophils % 0.7, Absolute Granulocytes 7.8 H, Absolute Lymphocytes 1.2, Absolute Monocytes 0.5, Absolute Eosinophils 0.4, Absolute Basophils 0.1 Assessment/Plan Assessment: Mr Liu is a 71-year-old gentleman with a past medical history of type I diabetes on insulin pump (complicated by neuropathy, retinopathy and nephropathy ), complete heart block status post pacemaker, PVD previous admission to [facility] 2 weeks prior to admission for 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 He was initially admitted on the telemetry service and then subseuquently transferred to the [facility] due to hypoxia and tachycardia. After admission to [facility] patient transferred to after disscussions of comfort measures. Patient presented with siginficant improvement in mental condition while in floor and accordingly the disscusion of performing surgery was reconsidered. Acute on chronic hypoxemic respiratory failure This was considered multifactorial, including CHF, acute lung injury possibly bilateral aspiration pneumonitis. Patient also received broad spectrum antibiotics and was currently off antibiotics per ID. CXR 04/15/17: worsening of consolidation CXR: 04/17/17: mild improvement -Currently on - patient still DNI/DNR confirmed with family - hold off antibiotics for new consolidation (aspiration vs HCAP), follow ID pulm - received extra dose Lasix, currently BID - daily CXR, PO lasix with improvement Significant Peripharel Vascular Disease Complicated with osteomyelitis and gangrene of foot s/p MRSA OM; Right foot gangrene involving second and third toe. This morning, the patient may be considering amputation. His primary care physician Dr. Adame suggested that he needed a BKA instead of the TMA for a better prognostic outcome however due to anesthesia consideration and patient respiratory condition, TMA was performed. - patient s/p TMA - Pysch and ID on board - Patient does not have capacity to make medical desicion, will evaluate daily - will follow cutlure results from surgery (it apeared that there may not be good specimen) - Continue vanc per ID - Consider PICC line placement - vanc thr level Type II CA Over the course of the admission, Troponin peaked at 6.64 which was thought be likely due to type 2 CA. No EKG changes s/o CA. Component of volume overload, PRN diuresis while monitoring the serum creatinine closely. Echocardiogram: Left ventricular cavity size at the upper limits of normal. Mild to moderate concentric left ventricular hypertrophy. The inferior and posterior calderon are akinetic. The septum and apex contracts fairly well. Estimated ejection fraction is 35-40%. Catheter/pacemaker wire in the right ventricular cavity. Catheter/pacemaker wire in the right atrial appendage. Mild left atrial dilatation. Moderate thickening/calcification of the mitral valve leaflets. Moderate mitral annular calcification. Mild mitral regurgitation. Focal thickening of the aortic valve cusps. No aortic stenosis. Right ventricular systolic pressure estimated to be elevated at 55- 60 mmHg. Moderate to severe pulmonary hypertension. Left pleural effusion. Dilated IVC. Dr Avery, industrial paramedic on board, Will monitor Cr, and further dosing changes if warranted. - continue diuresis per cardiology - Follow CXR to change lasix to PO PARRIS on CKD Could be related to DM, he also had recent angiogram that could precipitate PARRIS. Appears to be improving. Sr Cr 1.8--> ~1. Will continue to monitor. - continue to monitor Cr Type 1 Diabetes Complicated with diabetic nephropathy, neuropathy, peripheral vascular disease and retinopathy. Endocrinology on board, appreciate recomendations. - updated insuline dose daily per Endo note Skin: Unstageable pressure ulcer noted on right upper buttocks which was present on admission. Continue wound care recommendations. DNR/DNI Con carb diet 1, ground and thin Problem List: 1. Acute and chronic respiratory failure with hypoxia 2. Osteomyelitis Pain Ratin Pain Location: None Pain Goal: Pain 4 or less Pain Plan: Continue current plan Tomorrow's Labs & Rationales: CBc BEP Oren Covarrubias 04/19/17 1614: Attending MD Review Statement Attending Statement Attending MD Statement: examined this patient, discuss w/resident/PA/SAW CLEANER, agreed w/resident/PA/SAW CLEANER, reviewed EMR data (avail), discussed with nursing Attending Assessment/Plan: CXR shows improved aeration and improved pleural effusions , will change lasix to 40mg po bid. hypkalemia- replace and recheck in am.
--- NOTE | 2017-04-19 11:45 | PN- Diabetes ---
Assessment/Plan Diabetes Assessment: 70 y/o male, Hx of DM type 1 diagnosed when he was 14 years old. He was on an insulin pump with basal rate running at 0.9 units per hour in the past. His diabetes was complicated by neuropathy, retinopathy, nephropathy. Patient presented to the ED after sustaining an unwitnessed fall. He was admitted for positive troponin with peak troponin of 6.64, ongoing right foot infection and gangrene of 2nd toe and 3rd toe. The procedure for amputation of foot was done on 04/14/2017. He is on Levemir 6 units twice a day, Novolog before meals and Novolog coverage at bedtime . His FSGs were 80, 213, 216, 246 and 202. Plan: 1. increase Levemir to 8 units twice a day; 2. adjust Novolog coverage before meals; detail see the inpatient DM order; 3. add Novolog coverage at bedtime; detail see the inpatient DM order; 4. monitor FSGs. will follow. Inpatient Diabetes Orders Before Each Meal: Bolus Insulin: Novolog < 80 mg/dl: no coverage 80-100 mg/dl: 3 units 101-120 mg/dl: 3 units 121-150 mg/dl: 3 units 151-200 mg/dl: 4 units 201-250 mg/dl: 5 units 251-300 mg/dl: 6 units 301-350 mg/dl: 7 units 351-400 mg/dl: 8 units > 400 mg/dl: 10 units Bedtime: Bolus Insulin: Novolog < 80 mg/dl: no coverage 80-100 mg/dl: no coverage 101-120 mg/dl: no coverage 121-150 mg/dl: no coverage 151-200 mg/dl: no coverage 201-250 mg/dl: no coverage 251-300 mg/dl: 2 units 301-350 mg/dl: 3 units 351-400 mg/dl: 4 units > 400 mg/dl: 5 units Subjective Subjective: He feels better and has been eating better. Objective Last 24 Hrs of Vital Signs/I&O Vital Signs Date Time Temp Pulse Resp B/P B/P Pulse O2 O2 Flow FiO2 Mean Ox Delivery Rate 04/19 0838 78 138/78 04/19 0800 99 Nasal 3.0L Cannula 04/19 0701 97.7 75 18 147/79 100 Nasal 3.0L Cannula 04/19 0000 92 Nasal 3.0L Cannula 04/18 2328 98.0 70 20 120/70 93 Nasal 3.0L Cannula 04/18 2225 96 Nasal 3.0L Cannula 04/18 1600 95 Nasal 3.0L Cannula 04/18 1425 99.4 70 20 122/70 94 Nasal 3.0L Cannula Intake & Output 04/19 1600 04/19 0800 04/19 0000 Intake Total 256 845 Output Total 600 550 Balance -344 295 Intake, IV 20 345 Intake, Oral 236 500 Number 0 Bowel Movements Output, Urine 600 550 Patient 170 lb Weight Weight Bed scale Measurement Method Findings Pertinent Lab/Fransisco Results: Laboratory Tests 04/19 0645 Chemistry Sodium (137 - 145 mmol/L) 138 Potassium (3.5 - 5.1 mmol/L) 3.2 L Chloride (98 - 107 mmol/L) 95 L Carbon Dioxide (22 - 30 mmol/L) 35 H Anion Gap (5 - 16) 8 BUN (9 - 20 mg/dL) 23 H Creatinine (0.7 - 1.2 mg/dL) 1.1 Estimated GFR (>60 ml/min) > 60 BUN/Creatinine Ratio (7 - 25 %) 20.9 Hematology CBC w Diff NO MAN DIFF REQ WBC (4.8 - 10.8 /CUMM) 9.9 RBC (4.70 - 6.10 /CUMM) 2.82 L Hgb (14.0 - 18.0 G/DL) 8.5 L Hct (42 - 52 %) 25.6 L MCV (80.0 - 94.0 FL) 90.8 MCH (27.0 - 31.0 PG) 30.1 MCHC (33.0 - 37.0 G/DL) 33.2 RDW (11.5 - 14.5 %) 14.3 Plt Count (130 - 400 /CUMM) 455 H MPV (7.4 - 10.4 FL) 8.7 Gran % (42.2 - 75.2 %) 78.8 H Lymphocytes % (20.5 - 51.1 %) 11.9 L Monocytes % (1.7 - 9.3 %) 4.8 Eosinophils % (0 - 5 %) 3.8 Basophils % (0.0 - 2.0 %) 0.7 Absolute Granulocytes (1.4 - 6.5 /CUMM) 7.8 H Absolute Lymphocytes (1.2 - 3.4 /CUMM) 1.2 Absolute Monocytes (0.10 - 0.60 /CUMM) 0.5 Absolute Eosinophils (0.0 - 0.7 /CUMM) 0.4 Absolute Basophils (0.0 - 0.2 /CUMM) 0.1
--- NOTE | 2017-04-19 13:20 | PN- Infect Dx ---
Subjective Subjective: No fever; no new c/o. Land patent. Review of Systems Comments: 12 points reviewed as noted, otherwise negative. Objective Last 24 Hrs of Vital Signs/I&O Vital Signs Date Time Temp Pulse Resp B/P B/P Pulse O2 O2 Flow FiO2 Mean Ox Delivery Rate 04/19 0838 78 138/78 04/19 0800 99 Nasal 3.0L Cannula 04/19 0701 97.7 75 18 147/79 100 Nasal 3.0L Cannula 04/19 0000 92 Nasal 3.0L Cannula 04/18 2328 98.0 70 20 120/70 93 Nasal 3.0L Cannula 04/18 2225 96 Nasal 3.0L Cannula 04/18 1600 95 Nasal 3.0L Cannula 04/18 1425 99.4 70 20 122/70 94 Nasal 3.0L Cannula Intake & Output 04/19 1600 04/19 0800 04/19 0000 Intake Total 256 845 Output Total 600 550 Balance -344 295 Intake, IV 20 345 Intake, Oral 236 500 Number 0 Bowel Movements Output, Urine 600 550 Patient 170 lb Weight Weight Bed scale Measurement Method Physical Exam Other Physical Findings: General Appearance: Alert, Oriented X3, Cooperative, No Acute Distress Skin: warm and dry Skin Temp/Moisture Exam: Warm/Dry Sepsis Skin Exam (color): Normal for Ethnicity HEENT: Atraumatic, EOMI, Mucous Membr. moist/pink Cardiovascular: Normal S1, Normal S2 Lungs: Normal Air Movement, bilateral crackles, improved Abdomen: Soft, No Tenderness, Land in place Neurological: Normal Speech Extremities: Bilateral LE in dressing, RLE s/p TMA Results Last 24 Hours of Lab Results: Laboratory Tests 04/19 0645 Chemistry Sodium (137 - 145 mmol/L) 138 Potassium (3.5 - 5.1 mmol/L) 3.2 L Chloride (98 - 107 mmol/L) 95 L Carbon Dioxide (22 - 30 mmol/L) 35 H Anion Gap (5 - 16) 8 BUN (9 - 20 mg/dL) 23 H Creatinine (0.7 - 1.2 mg/dL) 1.1 Estimated GFR (>60 ml/min) > 60 BUN/Creatinine Ratio (7 - 25 %) 20.9 Hematology CBC w Diff NO MAN DIFF REQ WBC (4.8 - 10.8 /CUMM) 9.9 RBC (4.70 - 6.10 /CUMM) 2.82 L Hgb (14.0 - 18.0 G/DL) 8.5 L Hct (42 - 52 %) 25.6 L MCV (80.0 - 94.0 FL) 90.8 MCH (27.0 - 31.0 PG) 30.1 MCHC (33.0 - 37.0 G/DL) 33.2 RDW (11.5 - 14.5 %) 14.3 Plt Count (130 - 400 /CUMM) 455 H MPV (7.4 - 10.4 FL) 8.7 Gran % (42.2 - 75.2 %) 78.8 H Lymphocytes % (20.5 - 51.1 %) 11.9 L Monocytes % (1.7 - 9.3 %) 4.8 Eosinophils % (0 - 5 %) 3.8 Basophils % (0.0 - 2.0 %) 0.7 Absolute Granulocytes (1.4 - 6.5 /CUMM) 7.8 H Absolute Lymphocytes (1.2 - 3.4 /CUMM) 1.2 Absolute Monocytes (0.10 - 0.60 /CUMM) 0.5 Absolute Eosinophils (0.0 - 0.7 /CUMM) 0.4 Absolute Basophils (0.0 - 0.2 /CUMM) 0.1 Last 24 Hours of [place] Results: SPEC #: [id number] SONJA: 04/15/17 STATUS: CAN RECD: - SUBM DR: Rachid LOZANO,Saravanan SOURCE: LOWER RESP ENTR: 04/15/[address]: Jackie Davey MD SPDESC: SPUTUM Samina LOZANO,Deja Velazquez MD ORDERED: LOWER RESPIRATO Procedure Result CANCELLED SPECIMEN NOT RECEIVED IN LABORATORY Recent Imaging Studies: SERVICE DATE: 04/17/17- EXAM TYPE: RAD - XRY-PORTABLE CHEST XRAY EXAMINATION: XR PORTABLE CHEST CLINICAL INFORMATION: Follow-up of fluid overload. COMPARISON: Chest done on 04/16/2017. TECHNIQUE: Portable frontal view of the chest was obtained. FINDINGS: Compared to most recent prior study, there is mild improved aeration noted bilaterally. Significant residual airspace disease is noted at right perihilar, right lower and left mid to lower lung field with persistent stable small bilateral pleural effusions. Dual lead pacer wires are present, appear intact. The cardiomediastinal silhouette is mildly enlarged, unchanged. No new abnormalities. IMPRESSION: Mild improved aeration is noted bilaterally. Otherwise no significant interval change. DICTATED BY: Vladimir Lazo MD DATE/TIME DICTATED:04/17/171225 CANDY CATCHER:INES DATE/TIME TRANSCRIBED:04/17/171225 CONFIDENTIAL, DO NOT COPY WITHOUT APPROPRIATE AUTHORIZATION. 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 Complicated hospital course. Ac resp failure/treated for aspiration pneumonitis; improved, status post further diuresis, with improvement on his chest x-ray from 04/17. He remains afebrile with a normal white blood cell count on Vancomycin for possible residual soft tissue infection of the right foot status post TMA 5 days ago, with no concern by Podiatry for any residual osteomyelitis. Suggestion: 1. Vancomycin trough 04/20 in am 30 min before the due dose; goal trough 10-15. 2. CBC, BMP, ESR in am. 3. Continue iv vancomycin to 1.25 gm q 12 h, in order to complete total 7 days post TMA providing wound healing well.
--- NOTE | 2017-04-19 14:24 | RADIOLOGY REPORT ---
EXAMINATION: XR PORTABLE CHEST CLINICAL INFORMATION: Shortness of breath, CHF COMPARISON: 04/17/2017 TECHNIQUE: Portable frontal view of the chest was obtained. FINDINGS: A dual-lead pacemaker projects over the right upper chest. There is persistent airspace disease within the right upper, right perihilar and left lower lobes. There is overall improved aeration in the right midlung zone. The left upper lobe appears clear. The cardio missile contours are stable. A right pleural effusion is smaller in size. A left trace pleural effusion is smaller in size. IMPRESSION: Improving aeration of the right lung. Decreasing size of pleural effusions.
[2017-04-19 16:01] VITALS: BP 128/58
--- NOTE | 2017-04-19 18:00 | PN- Cardiology ---
Subjective Subjective: Clinically about the same as yesterday. Continues to slowly improve. Objective Vital Signs and I&Os Vital Signs Date Time Temp Pulse Resp B/P B/P Pulse O2 O2 Flow FiO2 Mean Ox Delivery Rate 04/19 1601 97.9 73 20 128/58 98 Nasal Cannula 04/19 0838 78 138/78 04/19 0800 99 Nasal 3.0L Cannula 04/19 0701 97.7 75 18 147/79 100 Nasal 3.0L Cannula 04/19 0000 92 Nasal 3.0L Cannula 04/18 2328 98.0 70 20 120/70 93 Nasal 3.0L Cannula 04/18 2225 96 Nasal 3.0L Cannula Intake & Output 04/19 1600 04/19 0800 04/19 0000 04/18 1600 04/18 0804/18 0000 Intake Total 1150 605 446 6692 400 1120 Output Total 900 600 550 171 288 2386 Balance 250 -344 295 205 -350 -180 Intake, IV 250 20 345 125 400 400 Intake, Oral 900 236 500 880 720 Number 0 0 1 Bowel Movements Output, Urine 900 600 550 655 304 2954 Patient 170 lb 167 lb Weight Weight Bed scale Bed scale Measurement Method Physical Exam: General Appearance: Alert, Oriented X3, Cooperative, No Acute Distress Skin Temp/Moisture Exam: Warm/Dry HEENT: Atraumatic, EOMI, Mucous Membr. moist/pink Cardiovascular: Regular Rate, Normal S1, Normal S2 Lungs: scattered bilateral rhonchi Abdomen: Soft, No Tenderness Neurological: Normal / nonfocal Extremities: No edema, Right foot s/p TMA bilateral LE dressing in place Current Medications: Current Medications Sig/Coral Start time Last Medication Dose Route Stop Time Status Admin Acetaminophen 500 MG TID 04/03 1156 AC 04/19 PO 1603 Albuterol Sulfate 3 ML Q4P PRN 04/15 08 AC 04/15 INH 0755 Amlodipine Besylate 5 MG DAILY 04/03 1200 AC 04/19 PO 0838 Aspirin 81 MG DAILY 04/04 1000 AC 04/19 PO 0838 Fluticasone 2 SPRAY DAILY 04/03 1155 AC 04/17 Propionate THOMAS 0809 Furosemide 40 MG 7:30 AM, & 4:30 PM 04/19 1630 AC 04/19 PO 1756 Furosemide 40 MG BID 04/16 2199 DC 04/19 IV 0835 Heparin Sodium 5,000 UNIT Q8 04/15 2199 AC 04/19 (Porcine) SC 1357 Insulin Aspart 0 TIDAC/HS 04/17 1700 AC 04/19 SC 1706 Insulin Detemir 8 UNITS BID 04/19 2200 AC SC Insulin Detemir 2 UNITS ONCE ONE 04/19 1145 DC 04/19 SC 04/19 1146 1204 Insulin Detemir 6 UNITS BID 04/18 1000 DC 04/19 SC 0826 Metoprolol Succinate 25 MG DAILY 04/03 1714 AC 04/19 PO 0838 Omeprazole 40 MG DAILY AC 04/11 0700 AC 04/19 PO 0623 Potassium Chloride 20 MEQ ONCE ONE 04/19 1245 DC 04/19 PO 04/19 1246 1356 Povidone Iodine 1 MEHRAN DAILY 04/13 1000 AC 04/19 TOP 0838 Pregabalin 50 MG TID 04/03 1155 AC 04/19 PO 1603 Vancomycin HCl 1,250 MG Q12 04/19 2200 AC Dextrose/Water 250 ML IV Vancomycin HCl 1,000 MG Q12 04/18 1145 AC 04/19 Dextrose/Water 250 ML IV 04/19 2159 0838 Results Last 48 Hrs of Labs/Mics: Laboratory Tests 04/19/17 0645: Anion Gap 8, Estimated GFR > 60, BUN/Creatinine Ratio 20.9, Mrl-L-Bcejeemmyme Pept 9320 H, CBC w Diff NO MAN DIFF REQ, RBC 2.82 L, MCV 90.8, MCH 30.1, MCHC 33.2, RDW 14.3, MPV 8.7, Gran % 78.8 H, Lymphocytes % 11.9 L, Monocytes % 4.8, Eosinophils % 3.8, Basophils % 0.7, Absolute Granulocytes 7.8 H, Absolute Lymphocytes 1.2, Absolute Monocytes 0.5, Absolute Eosinophils 0.4, Absolute Basophils 0.1 04/18/17 0800: Anion Gap 8, Estimated GFR > 60, BUN/Creatinine Ratio 26.0 H, CBC w Diff NO MAN DIFF REQ, RBC 2.65 L, MCV 91.3, MCH 30.6, MCHC 33.5, RDW 14.1, MPV 8.6, Gran % 81.5 H, Lymphocytes % 10.5 L, Monocytes % 4.9, Eosinophils % 2.3, Basophils % 0.8, Absolute Granulocytes 8.1 H, Absolute Lymphocytes 1.0 L, Absolute Monocytes 0.5, Absolute Eosinophils 0.2, Absolute Basophils 0.1 Assessment/Plan Assessment/Plan Assessment: 1. Acute hypoxic respiratory failure with acute on chronic HFrEF 2. Severe PAD 3. Gangrene right LE 4. DM 5. Renal insufficiency. 6. Slightly worsening anemia 7. Elevated troponin Recommendations: - COntinue present regimen for now; continue diuresis - Monitor I/Os and weights - Followup labs pending with close monitoring of H/H Continue telemetry? No
[2017-04-19 22:30] VITALS: BP 108/50
[2017-04-19 22:35] VITALS: BP 108/50
[2017-04-20 06:00] VITALS: BP 110/52
--- NOTE | 2017-04-20 06:38 | PN- Housestaff ---
Samira Avila MD,[facility] 04/20/17 0638: Subjective Follow-up For: Acute hypoxic respiratory failure Acute lung injury Severe peripheral vascular disease Right leg gangrene Type 1 diabetes Renal insufficiency Subjective: Patient visited today, was lying in bed in no acute distress, was alert and oriented. Hf O2 changed to NC the day bofore yesterday. Incentive spirometry ordered. No fever or chills, no chest pain, no other events. Still on IV lasix, will follow daily CXR. On vancomycin currnetly. Podiatry visited right foot, changed dressing, fair healing. Review of Systems Constitutional: Reports: see HPI. Objective Last 24 Hrs of Vital Signs/I&O Vital Signs Date Time Temp Pulse Resp B/P B/P Pulse O2 O2 Flow FiO2 Mean Ox Delivery Rate 04/20 1030 78 118/52 04/20 1029 75 118/52 04/20 0600 98.5 75 20 110/52 96 04/20 0000 94 Nasal 3.0L Cannula 04/19 2230 99.4 84 20 108/50 94 Nasal 3.0L Cannula 04/19 1937 96 Nasal 3.0L Cannula 04/19 1601 97.9 73 20 128/58 98 Nasal Cannula 04/19 1600 96 Nasal 3.0L Cannula Intake & Output 04/20 1600 04/20 0800 04/20 0000 Intake Total 150 1070 Output Total 700 350 Balance -550 720 Intake, IV 20 Intake, Oral 150 1050 Number 0 Bowel Movements Output, Urine 700 350 Patient 170 lb Weight Physical Exam General Appearance: Alert, Oriented X3, Cooperative, No Acute Distress Skin: Right foot s/p TMA,fair healing, not perfect Skin Temp/Moisture Exam: Warm/Dry Sepsis Skin Exam (color): Normal for Ethnicity HEENT: Atraumatic, EOMI, Mucous Membr. moist/pink Cardiovascular: Normal S1, Normal S2 Lungs: Fince crackles improved Abdomen: Soft, No Tenderness Neurological: Normal Speech Extremities: as noted above Current Medications: Current Medications Sig/Coral Start time Last Medication Dose Route Stop Time Status Admin Acetaminophen 500 MG TID 04/03 1156 AC 04/20 PO 1029 Albuterol Sulfate 3 ML Q4P PRN 04/15 0800 AC 04/15 INH 0755 Amlodipine Besylate 5 MG DAILY 04/03 1200 AC 04/20 PO 1029 Aspirin 81 MG DAILY 04/04 1000 AC 04/20 PO 1029 Fluticasone 2 SPRAY DAILY 04/03 1155 AC 04/20 Propionate THOMAS 1031 Furosemide 40 MG 7:30 AM, & 4:30 PM 04/20 1630 AC IV Furosemide 40 MG 7:30 AM, & 4:30 PM 04/19 1630 AR 04/20 PO 0638 Furosemide 40 MG BID 04/16 2200 DC 04/19 IV 0835 Heparin Sodium 5,000 UNIT Q8 04/15 2200 AC 04/20 (Porcine) SC 1319 Insulin Aspart 10 UNITS ONCE ONE 04/20 1030 DC 04/20 SC 04/20 1031 1027 Insulin Aspart 0 TIDAC/HS 04/17 1700 AC 04/20 SC 1319 Insulin Detemir 10 UNITS BID 04/20 1000 04/20 SC 1027 Insulin Detemir 8 UNITS BID 04/19 2200 AR 04/19 SC 2237 Metoprolol Succinate 25 MG DAILY 04/03 1714 AC 04/20 PO 1030 Omeprazole 40 MG DAILY AC 04/11 0700 AC 04/20 PO 0638 Povidone Iodine 1 MEHRAN DAILY 04/13 1000 04/20 TOP 1031 Pregabalin 50 MG TID 04/03 1155 AC 04/20 PO 1044 Vancomycin HCl 1,250 MG Q12 04/19 2200 AC 04/20 Dextrose/Water 250 ML IV 1030 Vancomycin HCl 1,000 MG Q12 04/18 1145 AR 04/19 Dextrose/Water 250 ML IV 04/19 2159 0838 Last 24 Hrs of Lab/Fransisco Results Last 24 Hrs of Labs/Mics: Laboratory Tests 04/20/17 1120: Urine Color Pending, Urine Clarity Pending, Urine pH Pending, Ur Specific [place] Pending, Urine Protein Pending, Urine Ketones Pending, Urine Nitrite Pending, Urine Bilirubin Pending, Urine Urobilinogen Pending, Ur Leukocyte Esterase Pending, Ur Microscopic Pending, Urine Hemoglobin Pending, Urine Glucose Pending 04/20/17 0744: Anion Gap 7, Estimated GFR > 60, BUN/Creatinine Ratio 20.9, Magnesium 1.8, CBC w Diff NO MAN DIFF REQ, RBC 2.68 L, MCV 91.4, MCH 29.8, MCHC 32.7 L, RDW 13.9, MPV 8.5, Gran % 77.4 H, Lymphocytes % 12.6 L, Monocytes % 4.4, Eosinophils % 4.3, Basophils % 1.3, Absolute Granulocytes 7.1 H, Absolute Lymphocytes 1.2, Absolute Monocytes 0.4, Absolute Eosinophils 0.4, Absolute Basophils 0.1, ESR Westergren 108 H 04/19/170: Vancomycin Trough 18.0 Microbiology 04/20 1120 URINE ROUT: Urine Culture - RECD Assessment/Plan Assessment: Mr Liu is a 71-year-old gentleman with a past medical history of type I diabetes on insulin pump (complicated by neuropathy, retinopathy and nephropathy ), complete heart block status post pacemaker, PVD previous admission to [facility] 2 weeks prior to admission for 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 He was initially admitted on the telemetry service and then subseuquently transferred to the [facility] due to hypoxia and tachycardia. After admission to [facility] patient transferred to after disscussions of comfort measures. Patient presented with siginficant improvement in mental condition while in floor and accordingly the disscusion of performing surgery was reconsidered. Acute on chronic hypoxemic respiratory failure This was considered multifactorial, including CHF, acute lung injury possibly bilateral aspiration pneumonitis. Patient also received broad spectrum antibiotics and was currently off antibiotics per ID. CXR 04/15/17: worsening of consolidation CXR: 04/17/17: mild improvement -Currently on NC - patient still DNI/DNR confirmed with family - hold off antibiotics for new consolidation (aspiration vs HCAP), follow ID pulm - received extra dose Lasix, currently BID IV - daily CXR, PO lasix with improvement Significant Peripharel Vascular Disease Complicated with osteomyelitis and gangrene of foot s/p MRSA OM; Right foot gangrene involving second and third toe. This morning, the patient may be considering amputation. His primary care physician Dr. Adame suggested that he needed a BKA instead of the TMA for a better prognostic outcome however due to anesthesia consideration and patient respiratory condition, TMA was performed. - patient s/p TMA - Pysch and ID on board - Patient does not have capacity to make medical desicion, will evaluate daily - will follow cutlure results from surgery (it apeared that there may not be good specimen) - Continue vanc per ID - Consider PICC line placement - vanc thr level Type II WI Over the course of the admission, Troponin peaked at 6.64 which was thought be likely due to type 2 WI. No EKG changes s/o WI. Component of volume overload, PRN diuresis while monitoring the serum creatinine closely. Echocardiogram: Left ventricular cavity size at the upper limits of normal. Mild to moderate concentric left ventricular hypertrophy. The inferior and posterior calderon are akinetic. The septum and apex contracts fairly well. Estimated ejection fraction is 35-40%. Catheter/pacemaker wire in the right ventricular cavity. Catheter/pacemaker wire in the right atrial appendage. Mild left atrial dilatation. Moderate thickening/calcification of the mitral valve leaflets. Moderate mitral annular calcification. Mild mitral regurgitation. Focal thickening of the aortic valve cusps. No aortic stenosis. Right ventricular systolic pressure estimated to be elevated at 55- 60 mmHg. Moderate to severe pulmonary hypertension. Left pleural effusion. Dilated IVC. Dr Avery, ice puller on board, Will monitor Cr, and further dosing changes if warranted. - continue diuresis per cardiology - Follow CXR to change lasix to PO PARRIS on CKD Could be related to DM, he also had recent angiogram that could precipitate PARRIS. Appears to be improving. Sr Cr 1.8--> ~1. Will continue to monitor. - continue to monitor Cr Type 1 Diabetes Complicated with diabetic nephropathy, neuropathy, peripheral vascular disease and retinopathy. Endocrinology on board, appreciate recomendations. - updated insuline dose daily per Endo note Skin: Unstageable pressure ulcer noted on right upper buttocks which was present on admission. Continue wound care recommendations. DNR/DNI Con carb diet 1, ground and thin Problem List: 1. Acute and chronic respiratory failure with hypoxia 2. Osteomyelitis Pain Ratin Pain Location: None Pain Goal: Pain 4 or less Pain Plan: Continue current plan Tomorrow's Labs & Rationales: CBC ter[place] 04/20/17 1304: Attending MD Review Statement Attending Statement Attending MD Statement: examined this patient, discuss w/resident/PA/[employer], agreed w/resident/PA/[employer], discussed with family, reviewed EMR data (avail), discussed with nursing, discussed with case mgmt, reviewed images, amended to note Attending Assessment/Plan: Patient seen/examiend bedside. labs and imaging noted. Weekend events noted. Patient with improvement in chest xray and pulmoanry edema with diuretics which are changed to PO today. Patient dc jewell catheter. Patient is toelrating PO, Hyperglycemic this am and needed insulin. Endo f/u. Patient needs podaitry f/u for wound care. Abx as per ID. Cont current care...
[2017-04-20 09:04] LABS: ABSOLUTE BASOPHIL COUNT 0.1 /CUMM (0.0-0.2); ABSOLUTE EOSINOPHIL COUNT 0.4 /CUMM (0.0-0.7); ABSOLUTE GRANULOCYTE CT 7.1 /CUMM (1.4-6.5); ABSOLUTE LYMPH COUNT 1.2 /CUMM (1.2-3.4); ABSOLUTE MONOCYTE COUNT 0.4 /CUMM (0.10-0.60); BASOPHIL % 1.3 % (0.0-2.0); EOSINOPHIL % 4.3 % (0-5); GRANULOCYTE % 77.4 % (42.2-75.2); HEMATOCRIT 24.5 % (42-52); MEAN CORPUSCULAR HGB 29.8 PG (27.0-31.0); MEAN CORPUSCULAR HGB CONC 32.7 G/DL (33.0-37.0); MEAN CORPUSCULAR VOLUME 91.4 FL (80.0-94.0); MEAN PLATELET VOLUME 8.5 FL (7.4-10.4); PLATELET COUNT 494 /CUMM (130-400); RBC DISTRIBUTION WIDTH 13.9 % (11.5-14.5); RED BLOOD CELL CT 2.68 /CUMM (4.70-6.10); WHITE BLOOD CELL COUNT 9.2 /CUMM (4.8-10.8)
--- NOTE | 2017-04-20 09:25 | PN- Cardiology ---
Subjective Subjective: The patient looks much improved. He is on nasal oxygen. His saturations are good on 3 L. His chest x-ray yesterday continues to improve in terms of pulmonary edema. He is more alert and responsive than he has been. He has no specific complaints. Objective Vital Signs and I&Os Vital Signs Date Time Temp Pulse Resp B/P B/P Pulse O2 O2 Flow FiO2 Mean Ox Delivery Rate 04/20 06 98.5 75 20 110/52 96 04/20 0000 94 Nasal 3.0L Cannula 04/19 2229 99.4 84 20 108/50 94 Nasal 3.0L Cannula 04/19 1937 96 Nasal 3.0L Cannula 04/19 1601 97.9 73 20 128/58 98 Nasal Cannula 04/19 1600 96 Nasal 3.0L Cannula Intake & Output 04/20 1600 04/20 0800 04/20 0000 04/19 1600 04/19 0800 04/19 0000 Intake Total 150 1070 1150 256 845 Output Total 700 350 900 600 550 Balance -550 720 250 -344 295 Intake, IV 20 250 20 345 Intake, Oral 150 1050 900 236 500 Number 0 0 0 Bowel Movements Output, Urine 700 350 900 600 550 Patient 170 lb 170 lb Weight Weight Bed scale Measurement Method Physical Exam: He is in no distress HEENT exam normal Chest a few scattered rales Heart soft heart sounds, no murmur Extremities unchanged Current Medications: Current Medications Sig/Coral Start time Last Medication Dose Route Stop Time Status Admin Acetaminophen 500 MG TID 04/03 1156 AC 04/19 PO 2236 Albuterol Sulfate 3 ML Q4P PRN 04/15 0800 AC 04/15 INH 0755 Amlodipine Besylate 5 MG DAILY 04/03 1200 AC 04/19 PO 0838 Aspirin 81 MG DAILY 04/04 1000 AC 04/19 PO 0838 Fluticasone 2 SPRAY DAILY 04/03 1155 AC 04/17 Propionate THOMAS 0809 Furosemide 40 MG 7:30 AM, & 4:30 PM 04/19 1630 AC 04/20 PO 0638 Furosemide 40 MG BID 04/16 2200 DC 04/19 IV 0835 Heparin Sodium 5,000 UNIT Q8 04/15 2199 AC 04/20 (Porcine) SC 0637 Insulin Aspart 0 TIDAC/HS 04/17 1700 AC 04/20 SC 0822 Insulin Detemir 10 UNITS BID 04/20 1000 AC SC Insulin Detemir 8 UNITS BID 04/19 2200 DC 04/19 SC 2237 Insulin Detemir 2 UNITS ONCE ONE 04/19 1145 DC 04/19 SC 04/19 1146 1204 Insulin Detemir 6 UNITS BID 04/18 1000 DC 04/19 SC 0826 Metoprolol Succinate 25 MG DAILY 04/03 1714 AC 04/19 PO 0838 Omeprazole 40 MG DAILY AC 04/11 0700 AC 04/20 PO 0638 Potassium Chloride 20 MEQ ONCE ONE 04/19 1245 DC 04/19 PO 04/19 1246 1356 Povidone Iodine 1 MEHRAN DAILY 04/13 1000 AC 04/19 TOP 0838 Pregabalin 50 MG TID 04/03 1155 AC 04/19 PO 2236 Vancomycin HCl 1,250 MG Q12 04/190 AC 04/19 Dextrose/Water 250 ML IV 2248 Vancomycin HCl 1,000 MG Q12 04/18 1145 DC 04/19 Dextrose/Water 250 ML IV 04/19 2159 0838 Results Last 48 Hrs of Labs/Mics: His BUN was in the 30s lastly diuresing Laboratory Tests 04/20/17 0744: Anion Gap 7, Estimated GFR > 60, BUN/Creatinine Ratio 20.9, CBC w Diff Pending, WBC Pending, RBC Pending, Hgb Pending, Hct Pending, MCV Pending, MCH Pending, MCHC Pending, RDW Pending, Plt Count Pending, MPV Pending, ESR Westergren Pending 04/19/17 2110: Vancomycin Trough 18.0 04/19/17 0645: Anion Gap 8, Estimated GFR > 60, BUN/Creatinine Ratio 20.9, [id number] Pept 9320 H, CBC w Diff NO MAN DIFF REQ, RBC 2.82 L, MCV 90.8, MCH 30.1, MCHC 33.2, RDW 14.3, MPV 8.7, Gran % 78.8 H, Lymphocytes % 11.9 L, Monocytes % 4.8, Eosinophils % 3.8, Basophils % 0.7, Absolute Granulocytes 7.8 H, Absolute Lymphocytes 1.2, Absolute Monocytes 0.5, Absolute Eosinophils 0.4, Absolute Basophils 0.1 Recent Imaging Studies: PATIENT: JIM WASSERMAN PRESENT AGE: 71 PATIENT ACCOUNT NO: [id number] : 47 LOCATION: [facility] ORDERING PHYSICIAN: Meri Mclaughlin MD SERVICE DATE: 04/19/17124 EXAM TYPE: RAD - XRY-PORTABLE CHEST XRAY EXAMINATION: XR PORTABLE CHEST CLINICAL INFORMATION: Shortness of breath, CHF COMPARISON: 04/17/2017 TECHNIQUE: Portable frontal view of the chest was obtained. FINDINGS: A dual-lead pacemaker projects over the right upper chest. There is persistent airspace disease within the right upper, right perihilar and left lower lobes. There is overall improved aeration in the right midlung zone. The left upper lobe appears clear. The cardio missile contours are stable. A right pleural effusion is smaller in size. A left trace pleural effusion is smaller in size. IMPRESSION: Improving aeration of the right lung. Decreasing size of pleural effusions. DICTATED BY: Rosemary Buckley MD DATE/TIME DICTATED:04/19/171417 WIRE CHARGER:INES DATE/TIME TRANSCRIBED:04/19/171417 CONFIDENTIAL, DO NOT COPY WITHOUT APPROPRIATE AUTHORIZATION. <Electronically signed in Other Vendor System> SIGNED BY: Rosemary Buckley MD 04/19/17 1427 Assessment/Plan Assessment/Plan The patient continues to slowly improve. His pulmonary edema is better and his oxygen requirements have decreased. His renal function is stable. I recommend continuing to diurese him and monitoring with chest x-rays. When his x-ray is clear he can be switched to oral Lasix. He looks like he is close to being ready for transfer to rehabilitation. Continue telemetry? No
--- NOTE | 2017-04-20 09:43 | PN- Diabetes ---
Assessment/Plan Diabetes Assessment: 70 y/o male, Hx of DM type 1 diagnosed when he was 14 years old. He was on an insulin pump with basal rate running at 0.9 units per hour in the past. His diabetes was complicated by neuropathy, retinopathy, nephropathy. Patient presented to the ED after sustaining an unwitnessed fall. He was admitted for positive troponin with peak troponin of 6.64, ongoing right foot infection and gangrene of 2nd toe and 3rd toe. The procedure for amputation of foot was done on 04/14/2017. He is on Levemir 8 units twice a day, Novolog before meals and Novolog coverage at bedtime . Inpatient Diabetes Orders Before Each Meal: Bolus Insulin: Novolog < 80 mg/dl: no coverage 80-100 mg/dl: 3 units 101-120 mg/dl: 3 units 121-150 mg/dl: 3 units 151-200 mg/dl: 4 units 201-250 mg/dl: 5 units 251-300 mg/dl: 6 units 301-350 mg/dl: 7 units 351-400 mg/dl: 8 units > 400 mg/dl: 10 units Bedtime: Bolus Insulin: Novolog < 80 mg/dl: no coverage 80-100 mg/dl: no coverage 101-120 mg/dl: no coverage 121-150 mg/dl: no coverage 151-200 mg/dl: no coverage 201-250 mg/dl: no coverage 251-300 mg/dl: 2 units 301-350 mg/dl: 3 units 351-400 mg/dl: 4 units > 400 mg/dl: 5 units His meal intake improved. His FSGs were 202, 368, 283, 350 and 332. Plan: 1. increase Levemir to 10 units twice a day; 2. adjust Novolog coverage before meals; detail see the inopatient DM order; 3. continue the current Novolog coverage at bedtime. 4. monitor FSGs. will follow. Inpatient Diabetes Orders Before Each Meal: Bolus Insulin: Novolog < 80 mg/dl: no coverage 80-100 mg/dl: 4 units 101-120 mg/dl: 4 units 121-150 mg/dl: 4 units 151-200 mg/dl: 5 units 201-250 mg/dl: 6 units 251-300 mg/dl: 7 units 301-350 mg/dl: 8 units 351-400 mg/dl: 9 units > 400 mg/dl: 10 units Subjective Subjective: He feels better. Objective Last 24 Hrs of Vital Signs/I&O Vital Signs Date Time Temp Pulse Resp B/P B/P Pulse O2 O2 Flow FiO2 Mean Ox Delivery Rate 04/20 0600 98.5 75 20 110/52 96 04/20 0000 94 Nasal 3.0L Cannula 04/19 2230 99.4 84 20 108/50 94 Nasal 3.0L Cannula 04/19 1937 96 Nasal 3.0L Cannula 04/19 1601 97.9 73 20 128/58 98 Nasal Cannula 04/19 1600 96 Nasal 3.0L Cannula Intake & Output 04/20 0800 04/20 0000 Intake Total 150 1070 Output Total 700 350 Balance -550 720 Intake, IV 20 Intake, Oral 150 1050 Number 0 Bowel Movements Output, Urine 700 350 Patient 170 lb Weight Findings Pertinent Lab/Fransisco Results: Laboratory Tests 04/20 04/19 0744 2110 Chemistry Sodium (137 - 145 mmol/L) 136 L Potassium (3.5 - 5.1 mmol/L) 3.6 Chloride (98 - 107 mmol/L) 93 L Carbon Dioxide (22 - 30 mmol/L) 36 H Anion Gap (5 - 16) 7 BUN (9 - 20 mg/dL) 23 H Creatinine (0.7 - 1.2 mg/dL) 1.1 Estimated GFR (>60 ml/min) > 60 BUN/Creatinine Ratio (7 - 25 %) 20.9 Hematology CBC w Diff NO MAN DIFF REQ WBC (4.8 - 10.8 /CUMM) 9.2 RBC (4.70 - 6.10 /CUMM) 2.68 L Hgb (14.0 - 18.0 G/DL) 8.0 L Hct (42 - 52 %) 24.5 L MCV (80.0 - 94.0 FL) 91.4 MCH (27.0 - 31.0 PG) 29.8 MCHC (33.0 - 37.0 G/DL) 32.7 L RDW (11.5 - 14.5 %) 13.9 Plt Count (130 - 400 /CUMM) 494 H MPV (7.4 - 10.4 FL) 8.5 Gran % (42.2 - 75.2 %) 77.4 H Lymphocytes % (20.5 - 51.1 %) 12.6 L Monocytes % (1.7 - 9.3 %) 4.4 Eosinophils % (0 - 5 %) 4.3 Basophils % (0.0 - 2.0 %) 1.3 Absolute Granulocytes (1.4 - 6.5 /CUMM) 7.1 H Absolute Lymphocytes (1.2 - 3.4 /CUMM) 1.2 Absolute Monocytes (0.10 - 0.60 /CUMM) 0.4 Absolute Eosinophils (0.0 - 0.7 /CUMM) 0.4 Absolute Basophils (0.0 - 0.2 /CUMM) 0.1 ESR Westergren (0 - 10 MM) Pending Toxicology Vancomycin Trough (10.0 - 20.0 ug/mL) 18.0
--- NOTE | 2017-04-20 13:24 | PN- Pulmonary ---
Subjective HPI/Critical Care Issues: The patient looks much improved. He is on nasal oxygen. His saturations are good on 3 L. His chest x-ray yesterday continues to improve in terms of pulmonary edema. He is more alert and responsive than he has been. He has no specific complaints. Objective Current Medications: Current Medications Sig/Coral Start time Last Medication Dose Route Stop Time Status Admin Acetaminophen 500 MG TID 04/03 1156 AC 04/20 PO 1029 Albuterol Sulfate 3 ML Q4P PRN 04/15 0800 AC 04/15 INH 0755 Amlodipine Besylate 5 MG DAILY 04/03 1200 AC 04/20 PO 1029 Aspirin 81 MG DAILY 04/04 1000 AC 04/20 PO 1029 Fluticasone 2 SPRAY DAILY 04/03 1155 AC 04/20 Propionate THOMAS 1031 Furosemide 40 MG 7:30 AM, & 4:30 PM 04/19 1630 AC 04/20 PO 0638 Furosemide 40 MG BID 04/16 2200 DC 04/19 IV 0835 Heparin Sodium 5,000 UNIT Q8 04/15 2200 AC 04/20 (Porcine) SC 1319 Insulin Aspart 10 UNITS ONCE ONE 04/20 1030 DC 04/20 SC 04/20 1031 1027 Insulin Aspart 0 TIDAC/HS 04/17 1700 AC 04/20 SC 1319 Insulin Detemir 10 UNITS BID 04/20 1000 AC 04/20 SC 1027 Insulin Detemir 8 UNITS BID 04/19 2200 DC 04/19 SC 2237 Metoprolol Succinate 25 MG DAILY 04/03 1714 AC 04/20 PO 1030 Omeprazole 40 MG DAILY AC 04/11 0700 AC 04/20 PO 0638 Povidone Iodine 1 MEHRAN DAILY 04/13 1000 AC 04/20 TOP 1031 Pregabalin 50 MG TID 04/03 1155 AC 04/20 PO 1044 Vancomycin HCl 1,250 MG Q12 04/19 2200 AC 04/20 Dextrose/Water 250 ML IV 1030 Vancomycin HCl 1,000 MG Q12 04/18 1145 DC 04/19 Dextrose/Water 250 ML IV 04/19 2159 0838 Vital Signs & I&O Last 24 Hrs of Vitals and I&O: Vital Signs Date Time Temp Pulse Resp B/P B/P Pulse O2 O2 Flow FiO2 Mean Ox Delivery Rate 04/20 1030 78 118/52 04/20 1029 75 118/52 04/20 0600 98.5 75 20 110/52 96 04/20 0000 94 Nasal 3.0L Cannula 04/19 2230 99.4 84 20 108/50 94 Nasal 3.0L Cannula 04/19 1937 96 Nasal 3.0L Cannula 04/19 1601 97.9 73 20 128/58 98 Nasal Cannula 04/19 1600 96 Nasal 3.0L Cannula Intake & Output 04/20 1600 04/20 0800 04/20 0000 Intake Total 150 1070 Output Total 700 350 Balance -550 720 Intake, IV 20 Intake, Oral 150 1050 Number 0 Bowel Movements Output, Urine 700 350 Patient 170 lb Weight Impression/Plan Impression/Plan Impression/Plan: Lungs rhonchi and scattered crackles on the right, much improved from yesterday, on high flow Heart regular rhythm with no murmur Abdomen is soft, nontender with positive bowel sounds Extremities necrotic right second and third toes; left foot petechial/ purpuric rash Land catheter is in place IMPRESSION This is a gentleman with diabetes type 1 with multiple complications including neuropathy, significant peripheral vascular disease, previous pacemaker far heart block, previous history of MRSA osteomyelitis with previous foot surgery in the left side with femoral angioplasty, worsening performance status, previous normal pulmonary function tests, multiple organ dysfunction, now has a following issues * Improving Acute on chronic hypoxemic respiratory failure related to combination of factors which include congestive heart failure both systolic and diastolic failure with effusion, rule out active coronary ischemia * Effusions due to CHF better * Significant peripheral vascular disease with gangrene and probable osteomyelitis of his left foot. Infectious disease, podiatry and vascular surgery is following pt s/p TMA rt foot * Type 1 diabetes with multiple organ dysfunction including diabetic nephropathy , neuropathy, peripheral vascular disease and retinopathy. * CKD with renal insufficiency since admission most likely related to combination of factors including his underlying diabetic kidney disease. Now has creat which is stable. Pt did get CTA however this morning * Reduced ejection fraction with EF of 35-40% with abnormal diastolic dysfunction which appears to be chronic * Severe peripheral vascular disease with dry gangrene of the left foot s/p tma Recommendation COnt oxygen goal sat 92 COnt diuresis lasix per cardio Watch renal function Sub cut heparin Cont to monitor glucose Keep his head of bed elevated Will follow prn Keep hob up
--- NOTE | 2017-04-20 13:45 | RADIOLOGY REPORT ---
EXAMINATION: XR PORTABLE CHEST CLINICAL INFORMATION: Follow up fluid overload. COMPARISON: Multiple previous chest imaging studies with the most recent chest x-ray of 04/19/[address] of 04/15/2017. TECHNIQUE: Portable frontal view of the chest was obtained. FINDINGS: The lungs are hypoexpanded. There is interval worsening of the aeration in the mid to lower lung cavazos compared to last chest x-ray of 04/19/2015 which could be related to hypoexpansion and increasing airspace opacities and pleural effusions. No pneumothorax. The cardiomediastinal silhouette is unchanged with cardiomegaly. Right-sided bipolar pacemaker is unchanged in configuration. Osteoarthritic changes are noted at the bilateral glenohumeral joints and left acromioclavicular joint. IMPRESSION: Low lung volumes. Mild interval worsening of the lung aeration as described above which is likely related to combination of the hypoexpansion and worsening edema/airspace disease and small pleural effusions.
[2017-04-20 15:01] VITALS: BP 136/50
--- NOTE | 2017-04-20 15:21 | PN- Psychiatry ---
Assessment/Plan Impression: The patient reports that he has tolerated the surgery to his right foot, and states that a further revision is expected. He reports that he has 10-12 steps at home. He expects to go to physical rehab upon discharge. He agrees to come to [facility] when he is discharged from the STR/rehab. We might consider starting an SSRI, such as escitalopram 5 mg PO daily, to help with his depressive symptoms, if cardiology gives their approval, as these medications can prolong QTc. The patient has a pacemaker and shows prolongation of QTc. Also, these medications can cause or contribute to hyponatremia. We would also expect assured followup at the receiving facility/STR before starting such a medication. 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 Suggestion: 1. We would like the patient to come to the [facility] office for treatment after he discharges from rehab/STR. Please ask them to call and request an intake appointment as soon as his discharge date is known by them. [facility], [address] [place] [address], [phone]. He is to bring his photo ID and insurance card. 2. Please ask cardiology to comment on starting an SSRI, such as escitalopram 5 mg PO daily. Note that this medication can also cause hyponatremia, and will require monitoring. Please advise any concerns they may have. We will continue to follow along. Thank you for this consult. Subjective Subjective: The patient is lying in bed calmly and is alert and oriented to person, town, month, year, knows he is in a medical building, but not oriented to day or date. He denies auditory or visual hallucinations, and presents no [place] delusions. He denies suicidal ideation, including passive ideation. He reports sleep is good, and he is eating. He denies anxiety, and endorses some hopelessness and helplessness, but denies feeling so worthlessness or guilt. Review of Systems Neurological/Psychological: Reports: depressed. Objective Last 24 Hrs of Vital Signs/I&O Vital Signs Date Time Temp Pulse Resp B/P B/P Pulse O2 O2 Flow FiO2 Mean Ox Delivery Rate 04/20 1501 97.9 73 20 136/50 98 Nasal Cannula 04/20 1409 96 Nasal 3.0L Cannula 04/20 1030 78 118/52 04/20 1029 75 118/52 04/20 0800 98 Nasal 3.0L Cannula 04/20 0600 98.5 75 20 110/52 96 04/20 0000 94 Nasal 3.0L Cannula 04/19 2230 99.4 84 20 108/50 94 Nasal 3.0L Cannula 04/19 1937 96 Nasal 3.0L Cannula 04/19 1601 97.9 73 20 128/58 98 Nasal Cannula 04/19 1600 96 Nasal 3.0L Cannula Intake & Output 04/20 1600 04/20 0800 04/20 0000 Intake Total 150 1070 Output Total 700 350 Balance -550 720 Intake, IV 20 Intake, Oral 150 1050 Number 0 Bowel Movements Output, Urine 700 350 Patient 170 lb Weight Physical Exam: Not performed. Physical Exam General Appearance: no apparent distress, alert, awake Current Medications: Current Medications Sig/Coral Start time Last Medication Dose Route Stop Time Status Admin Acetaminophen 500 MG TID 04/03 1156 AC 04/20 PO 1029 Albuterol Sulfate 3 ML Q4P PRN 04/15 0800 AC 04/15 INH 0755 Amlodipine Besylate 5 MG DAILY 04/03 1200 AC 04/20 PO 1029 Aspirin 81 MG DAILY 04/04 1000 AC 04/20 PO 1029 Fluticasone 2 SPRAY DAILY 04/03 1155 AC 04/20 Propionate THOMAS 1031 Furosemide 40 MG 7:30 AM, & 4:30 PM 04/20 1630 AC IV Furosemide 40 MG 7:30 AM, & 4:30 PM 04/19 1630 DC 04/20 PO 0638 Furosemide 40 MG BID 04/16 2200 DC 04/19 IV 0835 Heparin Sodium 5,000 UNIT Q8 04/15 2200 AC 04/20 (Porcine) SC 1319 Insulin Aspart 10 UNITS ONCE ONE 04/20 1030 DC 04/20 SC 04/20 1031 1027 Insulin Aspart 0 TIDAC/HS 04/17 1700 AC 04/20 SC 1319 Insulin Detemir 10 UNITS BID 04/20 1000 AC 04/20 SC 1027 Insulin Detemir 8 UNITS BID 04/19 2200 DC 04/19 SC 2237 Metoprolol Succinate 25 MG DAILY 04/03 1714 AC 04/20 PO 1030 Omeprazole 40 MG DAILY AC 04/11 0700 AC 04/20 PO 0638 Povidone Iodine 1 MEHRAN DAILY 04/13 1000 AC 04/20 TOP 1031 Pregabalin 50 MG TID 04/03 1155 AC 04/20 PO 1044 Vancomycin HCl 1,250 MG Q12 04/19 2200 AC 04/20 Dextrose/Water 250 ML IV 1030 Vancomycin HCl 1,000 MG Q12 04/18 1145 DC 04/19 Dextrose/Water 250 ML IV 04/19 2159 0838 Results Last 24 Hrs of Labs/Mics: Laboratory Tests 04/20 04/20 1120 0744 Chemistry Sodium (137 - 145 mmol/L) 136 L Potassium (3.5 - 5.1 mmol/L) 3.6 Chloride (98 - 107 mmol/L) 93 L Carbon Dioxide (22 - 30 mmol/L) 36 H Anion Gap (5 - 16) 7 BUN (9 - 20 mg/dL) 23 H Creatinine (0.7 - 1.2 mg/dL) 1.1 Estimated GFR (>60 ml/min) > 60 BUN/Creatinine Ratio (7 - 25 %) 20.9 Magnesium (1.6 - 2.3 mg/dL) 1.8 Hematology CBC w Diff NO MAN DIFF REQ WBC (4.8 - 10.8 /CUMM) 9.2 RBC (4.70 - 6.10 /CUMM) 2.68 L Hgb (14.0 - 18.0 G/DL) 8.0 L Hct (42 - 52 %) 24.5 L MCV (80.0 - 94.0 FL) 91.4 MCH (27.0 - 31.0 PG) 29.8 MCHC (33.0 - 37.0 G/DL) 32.7 L RDW (11.5 - 14.5 %) 13.9 Plt Count (130 - 400 /CUMM) 494 H MPV (7.4 - 10.4 FL) 8.5 Gran % (42.2 - 75.2 %) 77.4 H Lymphocytes % (20.5 - 51.1 %) 12.6 L Monocytes % (1.7 - 9.3 %) 4.4 Eosinophils % (0 - 5 %) 4.3 Basophils % (0.0 - 2.0 %) 1.3 Absolute Granulocytes (1.4 - 6.5 /CUMM) 7.1 H Absolute Lymphocytes (1.2 - 3.4 /CUMM) 1.2 Absolute Monocytes (0.10 - 0.60 /CUMM) 0.4 Absolute Eosinophils (0.0 - 0.7 /CUMM) 0.4 Absolute Basophils (0.0 - 0.2 /CUMM) 0.1 ESR Westergren (0 - 10 MM) 108 H Urines Urinalysis LIGHT H Urine Color (YEL,AMB,STR) YEL Urine Clarity (CLEAR) HAZY H Urine pH (5.0 - 8.0) 6.0 Ur Specific [place] (1.001 - 1.035) 1.020 Urine Protein (NEG,<30 MG/DL) TRACE H Urine Ketones (NEG) NEG Urine Nitrite (NEG) NEG Urine Bilirubin (NEG) NEG Urine Urobilinogen (0.1 - 1.0 EU/dl) 0.2 Ur Leukocyte Esterase (NEG) MOD H Ur Microscopic SEDIMENT EXAMINED Urine RBC (0 - 5 /HPF) 15-25 H Urine WBC (0 - 2 /HPF) 15-25 H Urine Bacteria (NEG/NONE) RARE H Micro UA Comment BUDDING YEAST H Urine Hemoglobin (NEG) LARGE H Urine Glucose (N MG/DL) 250 H 04/19 2109 Toxicology Vancomycin Trough (10.0 - 20.0 ug/mL) 18.0
--- NOTE | 2017-04-20 17:53 | PN- Infect Dx ---
Subjective Subjective: No fever; mild discomfort R TMA site; wound with SS drainage. Land w/ sediment; removed today. Review of Systems Comments: 12 points reviewed as noted, otherwise negative. Objective Last 24 Hrs of Vital Signs/I&O Vital Signs Date Time Temp Pulse Resp B/P B/P Pulse O2 O2 Flow FiO2 Mean Ox Delivery Rate 04/20 1501 97.9 73 20 136/50 98 Nasal Cannula 04/20 1409 96 Nasal 3.0L Cannula 04/20 1030 78 118/52 04/20 1029 75 118/52 04/20 0800 98 Nasal 3.0L Cannula 04/20 0600 98.5 75 20 110/52 96 04/20 0000 94 Nasal 3.0L Cannula 04/19 2230 99.4 84 20 108/50 94 Nasal 3.0L Cannula 04/19 1937 96 Nasal 3.0L Cannula Intake & Output 04/20 1600 04/20 0800 04/20 0000 Intake Total 106 938 4155 Output Total 400 700 350 Balance 360 -550 720 Intake, IV 280 20 Intake, Oral 561 463 4300 Number 0 Bowel Movements Output, Urine 400 700 350 Patient 170 lb Weight Physical Exam Other Physical Findings: General Appearance: Alert, Oriented X3, Cooperative, No Acute Distress Skin: warm and dry Skin Temp/Moisture Exam: Warm/Dry Sepsis Skin Exam (color): Normal for Ethnicity HEENT: Atraumatic, EOMI, Mucous Membr. moist/pink Cardiovascular: Normal S1, Normal S2 Lungs: Normal Air Movement, bilateral crackles, improved Abdomen: Soft, No Tenderness, Land in place Neurological: Normal Speech Extremities: Bilateral LE in dressing, RLE s/p TMA; sutures in place; SS drainage Results Last 24 Hours of Lab Results: Laboratory Tests 04/20 04/20 1120 0744 Chemistry Sodium (137 - 145 mmol/L) 136 L Potassium (3.5 - 5.1 mmol/L) 3.6 Chloride (98 - 107 mmol/L) 93 L Carbon Dioxide (22 - 30 mmol/L) 36 H Anion Gap (5 - 16) 7 BUN (9 - 20 mg/dL) 23 H Creatinine (0.7 - 1.2 mg/dL) 1.1 Estimated GFR (>60 ml/min) > 60 BUN/Creatinine Ratio (7 - 25 %) 20.9 Magnesium (1.6 - 2.3 mg/dL) 1.8 Hematology CBC w Diff NO MAN DIFF REQ WBC (4.8 - 10.8 /CUMM) 9.2 RBC (4.70 - 6.10 /CUMM) 2.68 L Hgb (14.0 - 18.0 G/DL) 8.0 L Hct (42 - 52 %) 24.5 L MCV (80.0 - 94.0 FL) 91.4 MCH (27.0 - 31.0 PG) 29.8 MCHC (33.0 - 37.0 G/DL) 32.7 L RDW (11.5 - 14.5 %) 13.9 Plt Count (130 - 400 /CUMM) 494 H MPV (7.4 - 10.4 FL) 8.5 Gran % (42.2 - 75.2 %) 77.4 H Lymphocytes % (20.5 - 51.1 %) 12.6 L Monocytes % (1.7 - 9.3 %) 4.4 Eosinophils % (0 - 5 %) 4.3 Basophils % (0.0 - 2.0 %) 1.3 Absolute Granulocytes (1.4 - 6.5 /CUMM) 7.1 H Absolute Lymphocytes (1.2 - 3.4 /CUMM) 1.2 Absolute Monocytes (0.10 - 0.60 /CUMM) 0.4 Absolute Eosinophils (0.0 - 0.7 /CUMM) 0.4 Absolute Basophils (0.0 - 0.2 /CUMM) 0.1 ESR Westergren (0 - 10 MM) 108 H Urines Urinalysis LIGHT H Urine Color (YEL,AMB,STR) YEL Urine Clarity (CLEAR) HAZY H Urine pH (5.0 - 8.0) 6.0 Ur Specific [place] (1.001 - 1.035) 1.020 Urine Protein (NEG,<30 MG/DL) TRACE H Urine Ketones (NEG) NEG Urine Nitrite (NEG) NEG Urine Bilirubin (NEG) NEG Urine Urobilinogen (0.1 - 1.0 EU/dl) 0.2 Ur Leukocyte Esterase (NEG) MOD H Ur Microscopic SEDIMENT EXAMINED Urine RBC (0 - 5 /HPF) 15-25 H Urine WBC (0 - 2 /HPF) 15-25 H Urine Bacteria (NEG/NONE) RARE H Micro UA Comment BUDDING YEAST H Urine Hemoglobin (NEG) LARGE H Urine Glucose (N MG/DL) 250 H 04/19 2109 Toxicology Vancomycin Trough (10.0 - 20.0 ug/mL) 18.0 Last 24 Hours of [place] Results: SPEC #: [id number] SONJA: 04/20/17 STATUS: RECD RECD: 04/20/17-[address]: Samira Avila MD, Albertina Heath SOURCE: EXTREMITIE ENTR: 04/20/17-[address]: Tamica LOZANO,Jackie SPDESC: ARUN Haas MD,Jeff Boone MD,Deja ORDERED: XTRM CULT COMMENT: TYPE OF SPECIMEN: SUPERFICIAL Recent Imaging Studies: CXR IMPRESSION: Low lung volumes. Mild interval worsening of the lung aeration as described above which is likely related to combination of the hypoexpansion and worsening edema/airspace disease and small pleural effusions. 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 Complicated hospital course. Ac resp failure/treated for aspiration pneumonitis; improved, status post further diuresis, with some improvement on his chest x-ray, though he remains on high flow oxygen. He remains afebrile with a normal white blood cell count on Vancomycin for possible residual soft tissue infection of the right foot status post TMA 5 days ago, delayed healing. CXR + fluid overload Hyperglycemia; UA/UC obtained by team eval UTI Suggestion: 1. F/U UC and local wound cx R foot. 2. Vancomycin trough is therapeutic; goal trough ~15 3. Continue iv vancomycin to 1 gm q 12 h pending local wound cx R foot. Case d/w team.
[2017-04-20 22:39] VITALS: BP 110/56
[2017-04-21 06:26] VITALS: BP 150/70
--- NOTE | 2017-04-21 08:03 | PN- Housestaff ---
Samira Avila MD,[facility] 04/21/17 0802: Subjective Follow-up For: Acute hypoxic respiratory failure Acute lung injury Severe peripheral vascular disease Right leg gangrene Type 1 diabetes Renal insufficiency Subjective: Patient visited today, was lying in bed in no acute distress, was alert and oriented. Currently on NC Incentive spirometry ordered. No fever or chills, no chest pain, no other events. Still on IV lasix, will follow daily CXR. On vancomycin currnetly. Considering initial gram-negative rods and cultures, we will restart ceftaz addendum. Vascular surgery on board, will communicate with Dr. Kirkland regarding plan of care. Izzy was contacted regarding heal ulcer and sacral ulcer. Review of Systems Constitutional: Reports: see HPI. Objective Last 24 Hrs of Vital Signs/I&O Vital Signs Date Time Temp Pulse Resp B/P B/P Pulse O2 O2 Flow FiO2 Mean Ox Delivery Rate 04/21 1417 98.1 65 20 140/70 98 Nasal 1.0L Cannula 04/21 1356 96 Nasal 1.0L Cannula 04/21 0800 96 Nasal 1.0L Cannula 04/21 0626 98.7 75 20 150/70 96 Nasal 1.0L Cannula 04/21 0000 Nasal 1.0L Cannula 04/20 2239 98.9 80 18 110/56 93 04/20 1946 98 Nasal 3.0L Cannula Intake & Output 04/21 1600 04/21 0800 04/21 0000 Intake Total 1050 240 480 Output Total 1300 600 Balance -250 240 -120 Intake, IV 250 Intake, Oral 800 240 480 Number 1 Bowel Movements Output, Urine 1300 600 Patient 171 lb Weight Weight Bed scale Measurement Method Physical Exam General Appearance: Alert, Oriented X3, Cooperative, No Acute Distress Skin: R LE: s/p TMA, not in good conditin in terms of healing, spots of gangerenous tissue L LE: chronic ulcer in the heel Skin Temp/Moisture Exam: Warm/Dry Sepsis Skin Exam (color): Normal for Ethnicity HEENT: Atraumatic, EOMI, Mucous Membr. moist/pink Lymphatic: Axillary nl Cardiovascular: Normal S1, Normal S2 Lungs: decreased breathing sounds bilaterally Abdomen: Soft, No Tenderness Neurological: Normal Speech Extremities: No Edema, as noted above Current Medications: Current Medications Sig/Coral Start time Last Medication Dose Route Stop Time Status Admin Acetaminophen 500 MG TID 04/03 1156 AC 04/21 PO 1610 Albuterol Sulfate 3 ML Q4P PRN 04/15 0800 AC 04/15 INH 0755 Amlodipine Besylate 5 MG DAILY 04/03 1200 AC 04/21 PO 0856 Aspirin 81 MG DAILY 04/04 1000 AC 04/21 PO 0855 Ceftazidime 1,000 MG IQ8 04/21 1600 AC IV Fluticasone 2 SPRAY DAILY 04/03 1155 AC 04/20 Propionate THOMAS 1031 Furosemide 40 MG 7:30 AM, & 4:30 PM 04/20 1630 AC 04/21 IV 1611 Heparin Sodium 5,000 UNIT Q8 04/15 2200 AC 04/21 (Porcine) SC 1336 Insulin Aspart 0 TIDAC/HS 04/17 1700 AC 04/21 SC 1611 Insulin Detemir 12 UNITS BID 04/21 1000 AC 04/21 SC 0855 Insulin Detemir 10 UNITS BID 04/20 1000 DC 04/20 SC 2241 Metoprolol Succinate 25 MG DAILY 04/03 1714 AC 04/21 PO 0856 Omeprazole 40 MG DAILY AC 04/11 0700 AC 04/21 PO 0505 Polyethylene Glycol 17 GM DAILY 04/21 0830 AC 04/21 PO 0857 Povidone Iodine 1 MEHRAN DAILY 04/13 1000 AC 04/21 TOP 0856 Pregabalin 50 MG TID 04/03 1155 AC 04/21 PO 1611 Vancomycin HCl 1,000 MG Q12 04/21 2200 AC Dextrose/Water 250 ML IV Vancomycin HCl 1,250 MG Q12 04/19 2200 AC 04/21 Dextrose/Water 250 ML IV 04/21 2159 0915 Last 24 Hrs of Lab/[place] Results Last 24 Hrs of Labs/Mics: Laboratory Tests 04/21/17 0620: Anion Gap 5, Estimated GFR > 60, BUN/Creatinine Ratio 24.0, CBC w Diff NO MAN DIFF REQ, RBC 2.80 L, MCV 90.0, MCH 30.0, MCHC 33.3, RDW 14.3, MPV 8.6, Gran % 77.4 H, Lymphocytes % 12.4 L, Monocytes % 4.9, Eosinophils % 4.0, Basophils % 1.3, Absolute Granulocytes 7.7 H, Absolute Lymphocytes 1.2, Absolute Monocytes 0.5, Absolute Eosinophils 0.4, Absolute Basophils 0.1 Assessment/Plan Assessment: Mr Liu is a 71-year-old gentleman with a past medical history of type I diabetes on insulin pump (complicated by neuropathy, retinopathy and nephropathy ), complete heart block status post pacemaker, PVD previous admission to [facility] 2 weeks prior to admission for 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 He was initially admitted on the telemetry service and then subseuquently transferred to the [facility] due to hypoxia and tachycardia. After admission to [facility] patient transferred to after disscussions of comfort measures. Patient presented with siginficant improvement in mental condition while in floor and accordingly the disscusion of performing surgery was reconsidered. Acute on chronic hypoxemic respiratory failure This was considered multifactorial, including CHF, acute lung injury possibly bilateral aspiration pneumonitis. Patient also received broad spectrum antibiotics and was currently off antibiotics per ID. CXR 04/15/17: worsening of consolidation CXR: 04/17/17: mild improvement -Currently on NC - patient still DNI/DNR confirmed with family - hold off antibiotics for new consolidation (aspiration vs HCAP), follow ID pulm - received extra dose Lasix, currently BID IV - daily CXR, PO lasix with improvement Significant Peripharel Vascular Disease Complicated with osteomyelitis and gangrene of foot s/p MRSA OM; Right foot gangrene involving second and third toe. This morning, the patient may be considering amputation. His primary care physician Dr. Adame suggested that he needed a BKA instead of the TMA for a better prognostic outcome however due to anesthesia consideration and patient respiratory condition, TMA was performed. - patient s/p TMA - Pysch and ID on board - Patient does not have capacity to make medical desicion, will evaluate daily - will follow cutlure results from surgery (it apeared that there may not be good specimen) - Continue vanc per ID - Consider PICC line placement - vanc thr level - started on ceftaz consiedring initial culture of GNR - follow culture Type II AK Over the course of the admission, Troponin peaked at 6.64 which was thought be likely due to type 2 AK. No EKG changes s/o AK. Component of volume overload, PRN diuresis while monitoring the serum creatinine closely. Echocardiogram: Left ventricular cavity size at the upper limits of normal. Mild to moderate concentric left ventricular hypertrophy. The inferior and posterior calderon are akinetic. The septum and apex contracts fairly well. Estimated ejection fraction is 35-40%. Catheter/pacemaker wire in the right ventricular cavity. Catheter/pacemaker wire in the right atrial appendage. Mild left atrial dilatation. Moderate thickening/calcification of the mitral valve leaflets. Moderate mitral annular calcification. Mild mitral regurgitation. Focal thickening of the aortic valve cusps. No aortic stenosis. Right ventricular systolic pressure estimated to be elevated at 55- 60 mmHg. Moderate to severe pulmonary hypertension. Left pleural effusion. Dilated IVC. Dr Avery, process manufacturing engineer on board, Will monitor Cr, and further dosing changes if warranted. - continue diuresis per cardiology - Follow CXR to change lasix to PO PARRIS on CKD Could be related to DM, he also had recent angiogram that could precipitate PARRIS. Appears to be improving. Sr Cr 1.8--> ~1. Will continue to monitor. - continue to monitor Cr Type 1 Diabetes Complicated with diabetic nephropathy, neuropathy, peripheral vascular disease and retinopathy. Endocrinology on board, appreciate recomendations. - updated insuline dose daily per Endo note Skin: Unstageable pressure ulcer noted on right upper buttocks which was present on admission. Continue wound care recommendations. DNR/DNI Con carb diet 1, ground and thin Problem List: 1. Acute and chronic respiratory failure with hypoxia 2. Cellulitis of right foot Pain Ratin Pain Location: None Pain Goal: Pain 4 or less Pain Plan: Continue current plan Tomorrow's Labs & Rationales: CBC BEP Jeff Haas 04/21/17 1135: Attending MD Review Statement Attending Statement Attending MD Statement: examined this patient, discuss w/resident/PA/OUTBOUND CALL CENTER REPRESENTATIVE, agreed w/resident/PA/OUTBOUND CALL CENTER REPRESENTATIVE, discussed with family, reviewed EMR data (avail), discussed with nursing, discussed with case mgmt, reviewed images, amended to note Attending Assessment/Plan: Patient seen/examiend bedside. labs and imaging noted. Patient with improvement in pulmoanry edema with diuretics. Patient is toelrating PO, Blood sugar is better controlled. Endo f/u. Patient had podaitry f/u for wound care which suggested fair healing. Abx as per ID. f/u cultures sent yesterday. Skin precautions, aspiration precautions. consult wound care. Cont current care...
--- NOTE | 2017-04-21 08:13 | PN- Pulmonary ---
Subjective HPI/Critical Care Issues: Sleeping fatigue Objective Current Medications: Current Medications Sig/Coral Start time Last Medication Dose Route Stop Time Status Admin Acetaminophen 500 MG TID 04/03 1156 AC 04/20 PO 2241 Albuterol Sulfate 3 ML Q4P PRN 04/15 0800 AC 04/15 INH 0755 Amlodipine Besylate 5 MG DAILY 04/03 1200 AC 04/20 PO 1029 Aspirin 81 MG DAILY 04/04 1000 AC 04/20 PO 1029 Fluticasone 2 SPRAY DAILY 04/03 1155 AC 04/20 Propionate THOMAS 1031 Furosemide 40 MG 7:30 AM, & 4:30 PM 04/20 1630 AC 04/20 IV 1611 Furosemide 40 MG 7:30 AM, & 4:30 PM 04/19 1630 DC 04/20 PO 0638 Heparin Sodium 5,000 UNIT Q8 04/15 2200 AC 04/21 (Porcine) SC 0505 Insulin Aspart 10 UNITS ONCE ONE 04/20 1030 DC 04/20 SC 04/20 1031 1027 Insulin Aspart 0 TIDAC/HS 04/17 1700 AC 04/20 SC 2240 Insulin Detemir 10 UNITS BID 04/20 1000 AC 04/20 SC 2241 Insulin Detemir 8 UNITS BID 04/19 2200 WA 04/19 SC 2237 Metoprolol Succinate 25 MG DAILY 04/03 1714 AC 04/20 PO 1030 Omeprazole 40 MG DAILY AC 04/11 0700 AC 04/21 PO 0505 Povidone Iodine 1 MEHRAN DAILY 04/13 1000 AC 04/20 TOP 1031 Pregabalin 50 MG TID 04/03 1155 AC 04/20 PO 2239 Vancomycin HCl 1,250 MG Q12 04/19 2200 AC 04/20 Dextrose/Water 250 ML IV 2241 Vital Signs & I&O Last 24 Hrs of Vitals and I&O: Vital Signs Date Time Temp Pulse Resp B/P B/P Pulse O2 O2 Flow FiO2 Mean Ox Delivery Rate 04/21 625 98.7 75 20 150/70 96 Nasal 1.0L Cannula 04/21 0000 Nasal 1.0L Cannula 04/20 2238 98.9 80 18 110/56 93 04/20 1946 98 Nasal 3.0L Cannula 04/20 1501 97.9 73 20 136/50 98 Nasal Cannula 04/20 1409 96 Nasal 3.0L Cannula 04/20 1030 78 118/52 04/20 1029 75 118/52 Intake & Output 04/21 1600 04/21 0800 04/21 0000 Intake Total 240 480 Output Total 600 Balance 240 -120 Intake, Oral 240 480 Output, Urine 600 Patient 171 lb Weight Weight Bed scale Measurement Method Impression/Plan Impression/Plan Impression/Plan: General Appearance: Alert, Oriented X3, Cooperative, No Acute Distress Skin: warm and dry Skin Temp/Moisture Exam: Warm/Dry Sepsis Skin Exam (color): Normal for Ethnicity HEENT: Atraumatic, EOMI, Mucous Membr. moist/pink Cardiovascular: Normal S1, Normal S2 Lungs: Normal Air Movement, bilateral crackles, improved Abdomen: Soft, No Tenderness, Land in place Neurological: Normal Speech Extremities: Bilateral LE in dressing, RLE s/p TMA; sutures in place; SS drainage This is a gentleman with diabetes type 1 with multiple complications including neuropathy, significant peripheral vascular disease, previous pacemaker far heart block, previous history of MRSA osteomyelitis with previous foot surgery in the left side with femoral angioplasty, worsening performance status, previous normal pulmonary function tests, multiple organ dysfunction, now has a following issues * REsolved Acute on chronic hypoxemic respiratory failure related to combination of factors which include congestive heart failure both systolic and diastolic failure with effusion, rule out active coronary ischemia * Effusions due to CHF better * Significant peripheral vascular disease with gangrene and probable osteomyelitis of his left foot. Infectious disease, podiatry and vascular surgery is following pt s/p TMA rt foot * Type 1 diabetes with multiple organ dysfunction including diabetic nephropathy , neuropathy, peripheral vascular disease and retinopathy. * CKD with renal insufficiency since admission most likely related to combination of factors including his underlying diabetic kidney disease. Now has creat which is stable. Pt did get CTA however this morning * Reduced ejection fraction with EF of 35-40% with abnormal diastolic dysfunction which appears to be chronic * Severe peripheral vascular disease with dry gangrene of the left foot s/p tma Recommendation COnt oxygen goal sat 92 COnt diuresis lasix per cardio Watch renal function Sub cut heparin Cont to monitor glucose Keep his head of bed elevated Will follow prn
[2017-04-21 08:20] LABS: ABSOLUTE BASOPHIL COUNT 0.1 /CUMM (0.0-0.2); ABSOLUTE EOSINOPHIL COUNT 0.4 /CUMM (0.0-0.7); ABSOLUTE GRANULOCYTE CT 7.7 /CUMM (1.4-6.5); ABSOLUTE LYMPH COUNT 1.2 /CUMM (1.2-3.4); ABSOLUTE MONOCYTE COUNT 0.5 /CUMM (0.10-0.60); BASOPHIL % 1.3 % (0.0-2.0); GRANULOCYTE % 77.4 % (42.2-75.2); HEMATOCRIT 25.2 % (42-52); MEAN CORPUSCULAR HGB CONC 33.3 G/DL (33.0-37.0); MEAN PLATELET VOLUME 8.6 FL (7.4-10.4); PLATELET COUNT 527 /CUMM (130-400); RBC DISTRIBUTION WIDTH 14.3 % (11.5-14.5)
--- NOTE | 2017-04-21 09:11 | PN- Cardiology ---
Subjective Subjective: The patient looks good today. He is awake and alert and not in any distress. He states his breathing is okay and not any worse. He is still on IV Lasix as his chest x-ray looked a little worse yesterday. He remains on vancomycin. Objective Vital Signs and I&Os Vital Signs Date Time Temp Pulse Resp B/P B/P Pulse O2 O2 Flow FiO2 Mean Ox Delivery Rate 04/21 625 98.7 75 20 150/70 96 Nasal 1.0L Cannula 04/21 0000 Nasal 1.0L Cannula 04/20 2239 98.9 80 18 110/56 93 04/20 1946 98 Nasal 3.0L Cannula 04/20 1501 97.9 73 20 136/50 98 Nasal Cannula 04/20 1409 96 Nasal 3.0L Cannula 04/20 1030 78 118/52 04/20 1029 75 118/52 Intake & Output 04/21 1600 04/21 0800 04/21 0000 04/20 1600 04/20 0800 04/20 0000 Intake Total 240 480 219 465 8410 Output Total 600 400 700 350 Balance 240 -120 360 -550 720 Intake, IV 280 20 Intake, Oral 240 480 880 648 2505 Number 0 Bowel Movements Output, Urine 600 400 700 350 Patient 171 lb 170 lb Weight Weight Bed scale Measurement Method Physical Exam: He is in no distress Chest is clear Heart regular rhythm, soft heart sounds, no murmur Extremities trace edema Current Medications: Current Medications Sig/Coral Start time Last Medication Dose Route Stop Time Status Admin Acetaminophen 500 MG TID 04/03 1156 AC 04/21 PO 2125 Albuterol Sulfate 3 ML Q4P PRN 04/15 0800 AC 04/15 INH 0755 Amlodipine Besylate 5 MG DAILY 04/03 1200 AC 04/22 PO 0930 Aspirin 81 MG DAILY 04/04 1000 AC 04/22 PO 0930 Ceftazidime 1,000 MG IQ8 04/21 1600 AC 04/22 IV 0925 Fluticasone 2 SPRAY DAILY 04/03 1155 04/20 Propionate THOMAS 1031 Furosemide 40 MG 7:30 AM, & 4:30 PM 04/20 1630 AC 04/22 IV 0921 Heparin Sodium 5,000 UNIT Q8 04/15 2200 AC 04/22 (Porcine) SC 1302 Insulin Aspart 0 TIDAC/HS 04/17 1700 AC 04/22 SC 1302 Insulin Detemir 11 UNITS BID 04/22 1000 AC 04/22 SC 0930 Insulin Detemir 12 UNITS BID 04/21 1000 DC 04/21 MT 2128 Metoprolol Succinate 25 MG DAILY 04/03 1714 AC 04/22 PO 0930 Omeprazole 40 MG DAILY AC 04/11 0700 AC 04/22 PO 0514 Polyethylene Glycol 17 GM DAILY 04/21 0830 AC 04/22 PO 0930 Povidone Iodine 1 MEHRAN DAILY 04/13 1000 AC 04/21 [facility] 0856 Pregabalin 50 MG TID 04/03 1155 AC 04/22 PO 0929 Vancomycin HCl 1,000 MG Q12 04/21 2200 AC 04/22 Dextrose/Water 250 ML IV 0931 Vancomycin HCl 1,250 MG Q12 04/19 2200 DC 04/21 Dextrose/Water 250 ML IV 04/21 2159 0915 Results Last 48 Hrs of Labs/Mics: Laboratory Tests 04/22/17 0642: Anion Gap 7, Estimated GFR > 60, BUN/Creatinine Ratio 21.0, Pcf-A-Hhiqstyprjn Pept 8030 H, CBC w Diff NO MAN DIFF REQ, RBC 2.81 L, MCV 90.8, MCH 30.3, MCHC 33.4, RDW 14.2, MPV 8.4, Gran % 75.0, Lymphocytes % 13.2 L, Monocytes % 5.5, Eosinophils % 5.2 H, Basophils % 1.1, Absolute Granulocytes 6.3, Absolute Lymphocytes 1.1 L, Absolute Monocytes 0.5, Absolute Eosinophils 0.4, Absolute Basophils 0.1 04/21/17 0620: Anion Gap 5, Estimated GFR > 60, BUN/Creatinine Ratio 24.0, CBC w Diff NO MAN DIFF REQ, RBC 2.80 L, MCV 90.0, MCH 30.0, MCHC 33.3, RDW 14.3, MPV 8.6, Gran % 77.4 H, Lymphocytes % 12.4 L, Monocytes % 4.9, Eosinophils % 4.0, Basophils % 1.3, Absolute Granulocytes 7.7 H, Absolute Lymphocytes 1.2, Absolute Monocytes 0.5, Absolute Eosinophils 0.4, Absolute Basophils 0.1 Assessment/Plan Assessment/Plan The patient continues to improve clinically. His chest x-ray looks a little worse yesterday but this may be partly due to poor inspiration. I recommend a follow-up chest x-ray today. if it is improved he can probably go back onto oral Lasix. Continue telemetry? Not applicable
--- NOTE | 2017-04-21 09:18 | PN- Diabetes ---
Assessment/Plan Diabetes Assessment: 70 y/o male, Hx of DM type 1 diagnosed when he was 14 years old. He was on an insulin pump with basal rate running at 0.9 units per hour in the past. His diabetes was complicated by neuropathy, retinopathy, nephropathy. Patient presented to the ED after sustaining an unwitnessed fall. He was admitted for positive troponin with peak troponin of 6.64, ongoing right foot infection and gangrene of 2nd toe and 3rd toe. The procedure for amputation of foot was done on 04/14/2017. He has been better and his po intake has improved. He is on Levemir 10 units twice a day, Novolog before meals and Novolog coverage at bedtime . His FSGs were 362, 264, 315 and 235. Plan: 1. increase Levemir to 12 units twice a day; 2. adjust Novolog coverage before meals; detail see the inpatient DM order; 3. continue the current Novolog coverage at bedtime; 4. monitor FSGs. will follow. Inpatient Diabetes Orders Before Each Meal: Bolus Insulin: Novolog < 80 mg/dl: no coverage 80-100 mg/dl: 6 units 101-120 mg/dl: 6 units 121-150 mg/dl: 6 units 151-200 mg/dl: 7 units 201-250 mg/dl: 8 units 251-300 mg/dl: 9 units 301-350 mg/dl: 10 units 351-400 mg/dl: 11 units > 400 mg/dl: 12 units Subjective Subjective: He feels okay this morning. Objective Last 24 Hrs of Vital Signs/I&O Vital Signs Date Time Temp Pulse Resp B/P B/P Pulse O2 O2 Flow FiO2 Mean Ox Delivery Rate 04/21 0626 98.7 75 20 150/70 96 Nasal 1.0L Cannula 04/21 0000 Nasal 1.0L Cannula 04/20 2239 98.9 80 18 110/56 93 04/20 1946 98 Nasal 3.0L Cannula 04/20 1501 97.9 73 20 136/50 98 Nasal Cannula 04/20 1409 96 Nasal 3.0L Cannula 04/20 1030 78 118/52 04/20 1029 75 118/52 Intake & Output 04/21 1600 04/21 0800 04/21 0000 Intake Total 240 480 Output Total 600 Balance 240 -120 Intake, Oral 240 480 Output, Urine 600 Patient 171 lb Weight Weight Bed scale Measurement Method Findings Pertinent Lab/Fransisco Results: Laboratory Tests 04/21 04/20 0620 1120 Chemistry Sodium (137 - 145 mmol/L) 136 L Potassium (3.5 - 5.1 mmol/L) 3.7 Chloride (98 - 107 mmol/L) 95 L Carbon Dioxide (22 - 30 mmol/L) 36 H Anion Gap (5 - 16) 5 BUN (9 - 20 mg/dL) 24 H Creatinine (0.7 - 1.2 mg/dL) 1.0 Estimated GFR (>60 ml/min) > 60 BUN/Creatinine Ratio (7 - 25 %) 24.0 Hematology CBC w Diff NO MAN DIFF REQ WBC (4.8 - 10.8 /CUMM) 10.0 RBC (4.70 - 6.10 /CUMM) 2.80 L Hgb (14.0 - 18.0 G/DL) 8.4 L Hct (42 - 52 %) 25.2 L MCV (80.0 - 94.0 FL) 90.0 MCH (27.0 - 31.0 PG) 30.0 MCHC (33.0 - 37.0 G/DL) 33.3 RDW (11.5 - 14.5 %) 14.3 Plt Count (130 - 400 /CUMM) 527 H MPV (7.4 - 10.4 FL) 8.6 Gran % (42.2 - 75.2 %) 77.4 H Lymphocytes % (20.5 - 51.1 %) 12.4 L Monocytes % (1.7 - 9.3 %) 4.9 Eosinophils % (0 - 5 %) 4.0 Basophils % (0.0 - 2.0 %) 1.3 Absolute Granulocytes (1.4 - 6.5 /CUMM) 7.7 H Absolute Lymphocytes (1.2 - 3.4 /CUMM) 1.2 Absolute Monocytes (0.10 - 0.60 /CUMM) 0.5 Absolute Eosinophils (0.0 - 0.7 /CUMM) 0.4 Absolute Basophils (0.0 - 0.2 /CUMM) 0.1 Urines Urinalysis LIGHT H Urine Color (YEL,AMB,STR) YEL Urine Clarity (CLEAR) HAZY H Urine pH (5.0 - 8.0) 6.0 Ur Specific [place] (1.001 - 1.035) 1.020 Urine Protein (NEG,<30 MG/DL) TRACE H Urine Ketones (NEG) NEG Urine Nitrite (NEG) NEG Urine Bilirubin (NEG) NEG Urine Urobilinogen (0.1 - 1.0 EU/dl) 0.2 Ur Leukocyte Esterase (NEG) MOD H Ur Microscopic SEDIMENT EXAMINED Urine RBC (0 - 5 /HPF) 15-25 H Urine WBC (0 - 2 /HPF) 15-25 H Urine Bacteria (NEG/NONE) RARE H Micro UA Comment BUDDING YEAST H Urine Hemoglobin (NEG) LARGE H Urine Glucose (N MG/DL) 250 H
--- NOTE | 2017-04-21 12:00 | RADIOLOGY REPORT ---
EXAMINATION: XR PORTABLE CHEST CLINICAL INFORMATION: Follow-up fluid overload. COMPARISON: 04/20/2017. TECHNIQUE: Portable frontal view of the chest was obtained. FINDINGS: The cardiac and mediastinal silhouette is stable, partially obscured by adjacent airspace disease. The heart appears enlarged. Right-sided pacemaker present. Stable positioning of the leads. Low lung volumes. Persistent diffuse airspace opacities in the right hemithorax, and in the left mid and lower lung, similar to previous. The basilar confluent in bilateral lower lobes. Probable small bilateral pleural effusions. IMPRESSION: Low lung volumes. Persistent extensive airspace disease, probably related to a combination of pulmonary edema, and airspace disease from atelectasis or infiltrate. Small bilateral pleural effusions.
--- NOTE | 2017-04-21 14:02 | PN- Infect Dx ---
Subjective Subjective: Patient with less SOB; improvement in pulmonary edema with diuretics. Blood sugar is better controlled. No fever. Review of Systems Comments: 12 points reviewed as noted, otherwise negative. Objective Last 24 Hrs of Vital Signs/I&O Vital Signs Date Time Temp Pulse Resp B/P B/P Pulse O2 O2 Flow FiO2 Mean Ox Delivery Rate 04/21 08 96 Nasal 1.0L Cannula 04/21 0626 98.7 75 20 150/70 96 Nasal 1.0L Cannula 04/21 0000 Nasal 1.0L Cannula 04/20 2239 98.9 80 18 110/56 93 04/20 1946 98 Nasal 3.0L Cannula 04/20 1501 97.9 73 20 136/50 98 Nasal Cannula 04/20 1409 96 Nasal 3.0L Cannula Intake & Output 04/21 1600 04/21 0800 04/21 0000 Intake Total 240 480 Output Total 800 600 Balance -800 240 -120 Intake, Oral 240 480 Number 1 Bowel Movements Output, Urine 800 600 Patient 171 lb Weight Weight Bed scale Measurement Method Physical Exam Other Physical Findings: General Appearance: Alert, Oriented X3, Cooperative, No Acute Distress Skin: warm and dry Skin Temp/Moisture Exam: Warm/Dry Sepsis Skin Exam (color): Normal for Ethnicity HEENT: Atraumatic, EOMI, Mucous Membr. moist/pink Cardiovascular: Normal S1, Normal S2 Lungs: Normal Air Movement, bilateral crackles, improved Abdomen: Soft, No Tenderness, Land in place Neurological: Normal Speech Extremities: Bilateral LE in dressing, RLE s/p TMA; sutures in place; SS drainage Results Last 24 Hours of Lab Results: Laboratory Tests 04/21 06 Chemistry Sodium (137 - 145 mmol/L) 136 L Potassium (3.5 - 5.1 mmol/L) 3.7 Chloride (98 - 107 mmol/L) 95 L Carbon Dioxide (22 - 30 mmol/L) 36 H Anion Gap (5 - 16) 5 BUN (9 - 20 mg/dL) 24 H Creatinine (0.7 - 1.2 mg/dL) 1.0 Estimated GFR (>60 ml/min) > 60 BUN/Creatinine Ratio (7 - 25 %) 24.0 Hematology CBC w Diff NO MAN DIFF REQ WBC (4.8 - 10.8 /CUMM) 10.0 RBC (4.70 - 6.10 /CUMM) 2.80 L Hgb (14.0 - 18.0 G/DL) 8.4 L Hct (42 - 52 %) 25.2 L MCV (80.0 - 94.0 FL) 90.0 MCH (27.0 - 31.0 PG) 30.0 MCHC (33.0 - 37.0 G/DL) 33.3 RDW (11.5 - 14.5 %) 14.3 Plt Count (130 - 400 /CUMM) 527 H MPV (7.4 - 10.4 FL) 8.6 Gran % (42.2 - 75.2 %) 77.4 H Lymphocytes % (20.5 - 51.1 %) 12.4 L Monocytes % (1.7 - 9.3 %) 4.9 Eosinophils % (0 - 5 %) 4.0 Basophils % (0.0 - 2.0 %) 1.3 Absolute Granulocytes (1.4 - 6.5 /CUMM) 7.7 H Absolute Lymphocytes (1.2 - 3.4 /CUMM) 1.2 Absolute Monocytes (0.10 - 0.60 /CUMM) 0.5 Absolute Eosinophils (0.0 - 0.7 /CUMM) 0.4 Absolute Basophils (0.0 - 0.2 /CUMM) 0.1 Last 24 Hours of [place] Results: SPEC #: [id number] SONJA: 04/20/17 STATUS: RES RECD: 04/20/[address] [facility] [address]: Samira Avila MD, Albertina Heath SOURCE: [facility] ENTR: 04/20/171526 OT DR: Tamica LOZANO,Jackie SPDESC: ARUN Haas MD,Deja Velazquez MD ORDERED: XTRM CULT COMMENT: TYPE OF SPECIMEN: SUPERFICIAL Procedure Result GRAM STAIN - PENDING > EXTREMITIES CULTURE Preliminary 04/21/17 Mixed ashok after 1 day with Moderate growth of: GRAM NEGATIVE RODS Identification and sensitivities to follow Recent Imaging Studies: Reviewed Assessment/Plan ID Impression: 71-year-old gentleman with a past medical history of type I diabetes on insulin pump (complicated by neuropathy, retinopathy and nephropathy), complete heart block status post pacemaker, severe PVD, and recent previous admission to [facility] for 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 Complicated hospital course. Ac resp failure/treated for aspiration pneumonitis; improved, status post further diuresis, with some improvement on his chest x-ray, though he remains on high flow oxygen. He remains afebrile with a normal white blood cell count on Vancomycin for possible residual soft tissue infection of the right foot status post TMA 6 days ago. CXR + fluid overload Hyperglycemia; UA/UC obtained by team eval UTI Suggestion: 1. F/U final local wound cx R foot (preliminary GNR; past infections with Ps. aeruginosa and Serratia). 2. Vancomycin trough is therapeutic; goal trough ~15 3. Continue iv vancomycin to 1 gm q 12 h pending final local wound cx R foot. 4. As patient with scant purulent drainage R TMA stump noted previous day start Ceftazidime 1 gm iv q 8 h.
[2017-04-21 14:17] VITALS: BP 140/70
--- NOTE | 2017-04-21 15:57 | PN- Vascular Surgery ---
Surgical Brief Attending Note Brief Attending Note: Overall medical conditions improving. Creatinine is normal with good GFR I wouldl like to perform an angiogram in near future if ok from medical standpoint. I saw the right TMA stump and will discuss with Dr Moreno. If right TMA will not heal, major amputation will be necessary. There is also small dry gangrene of left foot. I will concentrate on the right for now.
[2017-04-21 22:29] VITALS: BP 138/80
[2017-04-22 06:00] VITALS: BP 142/78
--- NOTE | 2017-04-22 08:02 | PN- Housestaff ---
Samira Avila MD,Ami 04/22/17 0802: Subjective Follow-up For: Acute hypoxic respiratory failure Acute lung injury Severe peripheral vascular disease Right leg gangrene Type 1 diabetes Renal insufficiency Subjective: Patient visited today, was lying in bed comfortably in no acute distress, was alert and oriented. Currnetly on NC 1 lit. No fever or chills, no shortness of breathing, no chest pain, no other events. Vascular surgery noted planning to do an angiography, this would planned for early next week, considering renal function. Review of Systems Constitutional: Reports: see HPI. Objective Last 24 Hrs of Vital Signs/I&O Vital Signs Date Time Temp Pulse Resp B/P B/P Pulse O2 O2 Flow FiO2 Mean Ox Delivery Rate 04/22 0800 95 Nasal 1.0L Cannula 04/22 0600 98.1 77 18 142/78 94 04/22 0000 93 Nasal 2.0L Cannula 04/21 2229 98.1 76 18 138/80 95 Nasal 1.0L Cannula 04/21 2003 93 Nasal 1.0L Cannula 04/21 1600 93 Nasal 2.0L Cannula 04/21 1417 98.1 65 20 140/70 98 Nasal 1.0L Cannula 04/21 1356 96 Nasal 1.0L Cannula Intake & Output 04/22 1600 04/22 0800 04/22 0000 Intake Total 240 Output Total Balance 240 Intake, Oral 240 Patient 169 lb Weight Physical Exam General Appearance: Alert, Oriented X3, Cooperative, No Acute Distress Skin: Bilateral LE in dressing, R: after TMA, healing just fair, with spots of nectrotic tissue L: dressing in place Skin Temp/Moisture Exam: Warm/Dry Sepsis Skin Exam (color): Normal for Ethnicity HEENT: Atraumatic, EOMI, Mucous Membr. moist/pink Cardiovascular: Normal S1, Normal S2 Lungs: Clear to Auscultation, decreased air entry Abdomen: Soft, No Tenderness Neurological: Normal Speech Extremities: No Edema, as noted above Current Medications: Current Medications Sig/Coral Start time Last Medication Dose Route Stop Time Status Admin Acetaminophen 500 MG TID 04/03 1156 AC 04/21 PO 2125 Albuterol Sulfate 3 ML Q4P PRN 04/15 0800 AC 04/15 INH 0755 Amlodipine Besylate 5 MG DAILY 04/03 1200 AC 04/22 PO 0930 Aspirin 81 MG DAILY 02/10 1000 AC 04/22 PO 0930 Ceftazidime 1,000 MG IQ8 04/21 1600 AC 04/22 IV 0925 Fluticasone 2 SPRAY DAILY 04/03 1155 AC 04/20 Propionate THOMAS 1031 Furosemide 40 MG 7:30 AM, & 4:30 PM 04/20 1630 AC 04/22 IV 0921 Heparin Sodium 5,000 UNIT Q8 04/15 2200 AC 04/22 (Porcine) SC 1302 Insulin Aspart 0 TIDAC/HS 04/17 1700 AC 04/22 SC 1302 Insulin Detemir 11 UNITS BID 04/22 1000 AC 04/22 SC 0930 Insulin Detemir 12 UNITS BID 04/21 1000 DC 04/21 SC 2128 Metoprolol Succinate 25 MG DAILY 04/03 1714 AC 04/22 PO 0930 Omeprazole 40 MG DAILY AC 04/11 0700 AC 04/22 PO 0514 Polyethylene Glycol 17 GM DAILY 04/21 0830 AC 04/22 PO 0930 Povidone Iodine 1 MEHRAN DAILY 04/13 1000 AC 04/21 TOP 0856 Pregabalin 50 MG TID 04/03 1155 AC 04/22 PO 0929 Vancomycin HCl 1,000 MG Q12 04/21 2200 AC 04/22 Dextrose/Water 250 ML IV 0931 Vancomycin HCl 1,250 MG Q12 04/19 2200 DC 04/21 Dextrose/Water 250 ML IV 04/21 2159 0915 Last 24 Hrs of Lab/Fransisco Results Last 24 Hrs of Labs/Mics: Laboratory Tests 04/22/17 0642: Anion Gap 7, Estimated GFR > 60, BUN/Creatinine Ratio 21.0, Yab-P-Kivbtykcgzl Pept 8030 H, CBC w Diff NO MAN DIFF REQ, RBC 2.81 L, MCV 90.8, MCH 30.3, MCHC 33.4, RDW 14.2, MPV 8.4, Gran % 75.0, Lymphocytes % 13.2 L, Monocytes % 5.5, Eosinophils % 5.2 H, Basophils % 1.1, Absolute Granulocytes 6.3, Absolute Lymphocytes 1.1 L, Absolute Monocytes 0.5, Absolute Eosinophils 0.4, Absolute Basophils 0.1 Assessment/Plan Assessment: Mr Liu is a 71-year-old gentleman with a past medical history of type I diabetes on insulin pump (complicated by neuropathy, retinopathy and nephropathy ), complete heart block status post pacemaker, PVD previous admission to [facility] 2 weeks prior to admission for 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 He was initially admitted on the telemetry service and then subseuquently transferred to the [facility] due to hypoxia and tachycardia. After admission to [facility] patient transferred to after disscussions of comfort measures. Patient presented with siginficant improvement in mental condition while in floor and accordingly the disscusion of performing surgery was reconsidered. Acute on chronic hypoxemic respiratory failure This was considered multifactorial, including CHF, acute lung injury possibly bilateral aspiration pneumonitis. Patient also received broad spectrum antibiotics and was currently off antibiotics per ID. CXR 04/15/17: worsening of consolidation CXR: 04/17/17: mild improvement -Currently on NC - patient still DNI/DNR confirmed with family - hold off antibiotics for new consolidation (aspiration vs HCAP), follow ID pulm - received extra dose Lasix, currently BID IV - daily CXR, PO lasix with improvement - continue monitor Significant Peripharel Vascular Disease Complicated with osteomyelitis and gangrene of foot s/p MRSA OM; Right foot gangrene involving second and third toe. This morning, the patient may be considering amputation. His primary care physician Dr. Adame suggested that he needed a BKA instead of the TMA for a better prognostic outcome however due to anesthesia consideration and patient respiratory condition, TMA was performed. - patient s/p TMA - Pysch and ID on board - Patient does not have capacity to make medical desicion, will evaluate daily - will follow cutlure results from surgery (it apeared that there may not be good specimen) - Continue vanc per ID - Consider PICC line placement - vanc thr level - started on ceftaz consiedring initial culture of GNR - follow culture - consider Angio after clearance from Kidney Type II MN Over the course of the admission, Troponin peaked at 6.64 which was thought be likely due to type 2 MN. No EKG changes s/o MN. Component of volume overload, PRN diuresis while monitoring the serum creatinine closely. Echocardiogram: Left ventricular cavity size at the upper limits of normal. Mild to moderate concentric left ventricular hypertrophy. The inferior and posterior calderon are akinetic. The septum and apex contracts fairly well. Estimated ejection fraction is 35-40%. Catheter/pacemaker wire in the right ventricular cavity. Catheter/pacemaker wire in the right atrial appendage. Mild left atrial dilatation. Moderate thickening/calcification of the mitral valve leaflets. Moderate mitral annular calcification. Mild mitral regurgitation. Focal thickening of the aortic valve cusps. No aortic stenosis. Right ventricular systolic pressure estimated to be elevated at 55- 60 mmHg. Moderate to severe pulmonary hypertension. Left pleural effusion. Dilated IVC. Dr Avery, solid propellant processor on board, Will monitor Cr, and further dosing changes if warranted. - continue diuresis per cardiology - Follow CXR to change lasix to PO PARRIS on CKD Could be related to DM, he also had recent angiogram that could precipitate PARRIS. Appears to be improving. Sr Cr 1.8--> ~1. Will continue to monitor. - continue to monitor Cr Type 1 Diabetes Complicated with diabetic nephropathy, neuropathy, peripheral vascular disease and retinopathy. Endocrinology on board, appreciate recomendations. - updated insuline dose daily per Endo note Skin: Unstageable pressure ulcer noted on right upper buttocks which was present on admission. Continue wound care recommendations. DNR/DNI Con carb diet 1, ground and thin Problem List: 1. Acute and chronic respiratory failure with hypoxia 2. Osteomyelitis Pain Ratin Pain Location: none Pain Goal: Pain 4 or less Pain Plan: continue current plan Tomorrow's Labs & Rationales: Jeff Lowery 04/22/17 1216: Attending MD Review Statement Attending Statement Attending MD Statement: examined this patient, discuss w/resident/PA/TECHNICAL TRAINING COORDINATOR, agreed w/resident/PA/TECHNICAL TRAINING COORDINATOR, discussed with family, reviewed EMR data (avail), discussed with nursing, discussed with case mgmt, reviewed images, amended to note Attending Assessment/Plan: Patient seen/examiend bedside. labs and imaging noted. Patient with improvement in pulmoanry edema with diuretics. Patient is toelrating PO, Blood sugar is better controlled. Endo f/u. Patient had podaitry f/u for wound care which suggested fair healing. Abx as per ID. f/u cultures growing gram negative rods. f/u final culture. Skin precautions, aspiration precautions. wound care consulted. Vascular surgery f/u along with podiatry f/u. Cont current care...
--- NOTE | 2017-04-22 08:07 | PN- Diabetes ---
Assessment/Plan Diabetes Assessment: 70 y/o male, Hx of DM type 1 diagnosed when he was 14 years old. He was on an insulin pump with basal rate running at 0.9 units per hour in the past. His diabetes was complicated by neuropathy, retinopathy, nephropathy. Patient presented to the ED after sustaining an unwitnessed fall. He was admitted for positive troponin with peak troponin of 6.64, ongoing right foot infection and gangrene of 2nd toe and 3rd toe. The procedure for amputation of foot was done on 04/14/2017. He has been better and his po intake has improved. He is on Levemir 12 units twice a day; Novolog before meals was adjusted on 04/21. Before Each Meal: Bolus Insulin: Novolog < 80 mg/dl: no coverage 80-100 mg/dl: 6 units 101-120 mg/dl: 6 units 121-150 mg/dl: 6 units 151-200 mg/dl: 7 units 201-250 mg/dl: 8 units 251-300 mg/dl: 9 units 301-350 mg/dl: 10 units 351-400 mg/dl: 11 units > 400 mg/dl: 12 units His FSGs were 304, 197, 122, 90 and 131. Plan: 1.decrease Levemir to 11 units twice a day; 2. continue the current Novolog coverage before meals; 3. continue the current Novolog coverage at bedtime; 4. monitor FSGs. will follow. Subjective Subjective: He has no special complaints this morning. Objective Last 24 Hrs of Vital Signs/I&O Vital Signs Date Time Temp Pulse Resp B/P B/P Pulse O2 O2 Flow FiO2 Mean Ox Delivery Rate 04/22 0600 98.1 77 18 142/78 94 04/22 0000 93 Nasal 2.0L Cannula 04/21 2229 98.1 76 18 138/80 95 Nasal 1.0L Cannula 04/21 2003 93 Nasal 1.0L Cannula 04/21 1600 93 Nasal 2.0L Cannula 04/21 1417 98.1 65 20 140/70 98 Nasal 1.0L Cannula 04/21 1356 96 Nasal 1.0L Cannula Intake & Output 04/22 1600 04/22 0800 04/22 0000 Intake Total 240 Output Total Balance 240 Intake, Oral 240 Patient 169 lb Weight Findings Pertinent Lab/Fransisco Results: Laboratory Tests 04/22 641 Chemistry Sodium Pending Potassium Pending Chloride Pending Carbon Dioxide Pending Anion Gap Pending BUN Pending Creatinine Pending BUN/Creatinine Ratio Pending Bxz-S-Wnunucyzxnf Pept Pending Hematology CBC w Diff Pending WBC Pending RBC Pending Hgb Pending Hct Pending MCV Pending MCH Pending MCHC Pending RDW Pending Plt Count Pending MPV Pending
[2017-04-22 08:26] LABS: ABSOLUTE BASOPHIL COUNT 0.1 /CUMM (0.0-0.2); ABSOLUTE EOSINOPHIL COUNT 0.4 /CUMM (0.0-0.7); ABSOLUTE GRANULOCYTE CT 6.3 /CUMM (1.4-6.5); ABSOLUTE LYMPH COUNT 1.1 /CUMM (1.2-3.4); ABSOLUTE MONOCYTE COUNT 0.5 /CUMM (0.10-0.60); BASOPHIL % 1.1 % (0.0-2.0); EOSINOPHIL % 5.2 % (0-5); HEMATOCRIT 25.5 % (42-52); MEAN CORPUSCULAR HGB 30.3 PG (27.0-31.0); MEAN CORPUSCULAR HGB CONC 33.4 G/DL (33.0-37.0); MEAN CORPUSCULAR VOLUME 90.8 FL (80.0-94.0); MEAN PLATELET VOLUME 8.4 FL (7.4-10.4); PLATELET COUNT 557 /CUMM (130-400); RBC DISTRIBUTION WIDTH 14.2 % (11.5-14.5); RED BLOOD CELL CT 2.81 /CUMM (4.70-6.10); WHITE BLOOD CELL COUNT 8.4 /CUMM (4.8-10.8)
--- NOTE | 2017-04-22 10:22 | RADIOLOGY REPORT ---
EXAMINATION: XR PORTABLE CHEST CLINICAL INFORMATION: Follow-up fluid overload. COMPARISON: Chest radiograph 04/21/2017 TECHNIQUE: Portable frontal view of the chest was obtained. FINDINGS: There is a right-sided dual-lead cardiac pacemaker with leads in similar position. The partially scattered cardiomediastinal silhouette remains stable. There is improved respiratory effort compared with the prior exam. There are persistent perihilar right greater than left airspace opacities most consistent with pulmonary edema, these are improved when compared with the prior exam. There is blunting of the bilateral costophrenic sulci which may reflect small effusions versus atelectasis. No pneumothorax. IMPRESSION: Improved respiratory effort. Improved perihilar right greater than left airspace opacities most consistent with asymmetric pulmonary edema. Blunting the costophrenic sulci may reflect small effusions versus atelectasis.
--- NOTE | 2017-04-22 13:19 | PN- Infect Dx ---
Subjective Subjective: No fever. S/P R TMA Review of Systems Comments: 12 points reviewed as noted, otherwise negative. Objective Last 24 Hrs of Vital Signs/I&O Vital Signs Date Time Temp Pulse Resp B/P B/P Pulse O2 O2 Flow FiO2 Mean Ox Delivery Rate 04/22 0800 95 Nasal 1.0L Cannula 04/22 0600 98.1 77 18 142/78 94 04/22 0000 93 Nasal 2.0L Cannula 04/21 2229 98.1 76 18 138/80 95 Nasal 1.0L Cannula 04/21 2002 93 Nasal 1.0L Cannula 04/21 1600 93 Nasal 2.0L Cannula 04/21 1417 98.1 65 20 140/70 98 Nasal 1.0L Cannula 04/21 1356 96 Nasal 1.0L Cannula Intake & Output 04/22 1600 04/22 0800 04/22 0000 Intake Total 240 Output Total Balance 240 Intake, Oral 240 Patient 169 lb Weight Physical Exam Other Physical Findings: General Appearance: Alert, Oriented X3, Cooperative, No Acute Distress Skin: warm and dry Skin Temp/Moisture Exam: Warm/Dry Sepsis Skin Exam (color): Normal for Ethnicity HEENT: Atraumatic, EOMI, Mucous Membr. moist/pink Cardiovascular: Normal S1, Normal S2 Lungs: Normal Air Movement, bilateral crackles, improved Abdomen: Soft, No Tenderness, Land removed Neurological: Normal Speech Extremities: S/P TMA RIGHT FOOT INCISION LINE UNAPPROXIMATED WITH CENTRAL DEHISCENCE - PERIWOUND ERYTHEMA AND MACERATION DRNG MOD SEROUS DRNG - CELLULITIC CHANGES Results Last 24 Hours of Lab Results: Laboratory Tests 04/22 0642 Chemistry Sodium (137 - 145 mmol/L) 138 Potassium (3.5 - 5.1 mmol/L) 3.6 Chloride (98 - 107 mmol/L) 95 L Carbon Dioxide (22 - 30 mmol/L) 36 H Anion Gap (5 - 16) 7 BUN (9 - 20 mg/dL) 21 H Creatinine (0.7 - 1.2 mg/dL) 1.0 Estimated GFR (>60 ml/min) > 60 BUN/Creatinine Ratio (7 - 25 %) 21.0 [id number] Pept (<125 pg/mL) 8030 H Hematology CBC w Diff NO MAN DIFF REQ WBC (4.8 - 10.8 /CUMM) 8.4 RBC (4.70 - 6.10 /CUMM) 2.81 L Hgb (14.0 - 18.0 G/DL) 8.5 L Hct (42 - 52 %) 25.5 L MCV (80.0 - 94.0 FL) 90.8 MCH (27.0 - 31.0 PG) 30.3 MCHC (33.0 - 37.0 G/DL) 33.4 RDW (11.5 - 14.5 %) 14.2 Plt Count (130 - 400 /CUMM) 557 H MPV (7.4 - 10.4 FL) 8.4 Gran % (42.2 - 75.2 %) 75.0 Lymphocytes % (20.5 - 51.1 %) 13.2 L Monocytes % (1.7 - 9.3 %) 5.5 Eosinophils % (0 - 5 %) 5.2 H Basophils % (0.0 - 2.0 %) 1.1 Absolute Granulocytes (1.4 - 6.5 /CUMM) 6.3 Absolute Lymphocytes (1.2 - 3.4 /CUMM) 1.1 L Absolute Monocytes (0.10 - 0.60 /CUMM) 0.5 Absolute Eosinophils (0.0 - 0.7 /CUMM) 0.4 Absolute Basophils (0.0 - 0.2 /CUMM) 0.1 Last 24 Hours of [place] Results: SPEC #: [id number] SONJA: 04/20/17 STATUS: RES RECD: 04/20/[address] [facility] [address]: Samira Avila MD, Albertina Heath SOURCE: [facility] ENTR: 04/20/[address]: Tamica LOZANO,Jackie SPDESC: ARUN Haas MD,Jeff Boone MD,Deja ORDERED: XTRM CULT COMMENT: TYPE OF SPECIMEN: SUPERFICIAL Procedure Result > GRAM STAIN Final 04/21/17-1426 WHITE BLOOD CELLS FEW GRAM NEGATIVE RODS FEW > EXTREMITIES CULTURE Preliminary 04/22/17-1154 Moderate growth of: 1. ESCHERICHIA COLI 2. ENTEROBACTER CLOACAE 3. ENTEROCOCCUS FURTHER SUSCEPTIBILITIES TO FOLLOW Light growth of: 4. STAPH AUREUS NOTE THIS IS A PRELIMINARY REPORT: IF: patient has had significant exposure to a healthcare setting in the past three (3) months, THEN: suspect Methicillin Resistant Staph aureus and place patient on Contact precautions PENDING susceptibility results TO FOLLOW E.coli E.cloacae Enteroc RX AB RX AB RX AB ------ -- ------ -- ------ -- AMPICILLIN R R R CEFAZOLIN S R AMOX/CLAV AUGM S R AMP/SULB-UNASYN R R CEFOXITIN R CEFTAZIDIME R CEFTRIAXONE R CIPROFLOXACIN R R GENTAMICIN S S MEROPENEM S TRIMETH/SULFA S R LINEZOLID S 1. ESCHERICHIA COLI RX AB ------ -- AMPICILLIN R CEFAZOLIN S AMOXICILLIN/CLAVULINIC ACID S AMPICILLIN/SULBACTAM R CIPROFLOXACIN R GENTAMICIN S TRIMETHOPRIM/SULFAMETHOXAZOLE S 2. ENTEROBACTER CLOACAE RX AB ------ -- AMPICILLIN R CEFAZOLIN R AMOXICILLIN/CLAVULINIC ACID R AMPICILLIN/SULBACTAM R CEFOXITIN R CEFTAZIDIME R CEFTRIAXONE R CIPROFLOXACIN R GENTAMICIN S MEROPENEM S TRIMETHOPRIM/SULFAMETHOXAZOLE R 3. ENTEROCOCCUS RX AB ------ -- AMPICILLIN R LINEZOLID S Recent Imaging Studies: CLINICAL INFORMATION: Follow-up fluid overload. COMPARISON: Chest radiograph 04/21/2017 TECHNIQUE: Portable frontal view of the chest was obtained. FINDINGS: There is a right-sided dual-lead cardiac pacemaker with leads in similar position. The partially scattered cardiomediastinal silhouette remains stable. There is improved respiratory effort compared with the prior exam. There are persistent perihilar right greater than left airspace opacities most consistent with pulmonary edema, these are improved when compared with the prior exam. There is blunting of the bilateral costophrenic sulci which may reflect small effusions versus atelectasis. No pneumothorax. IMPRESSION: Improved respiratory effort. Improved perihilar right greater than left airspace opacities most consistent with asymmetric pulmonary edema. Blunting the costophrenic sulci may reflect small effusions versus atelectasis. 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 Complicated hospital course. Ac resp failure/treated for aspiration pneumonitis; improved, status post further diuresis, with some improvement He remains afebrile with a normal white blood cell count on Vancomycin for possible residual soft tissue infection of the right foot status post TMA 7 days ago; wound dehiscence/cellulitic skin changes; possible polymicrobial wound infection (Enterobacter cloacae MDR, E.coli, Enterococcus, S.aureus) vs contamnation as this is a superficial wound cx UA+ yeast; likely Land cath colonization Suggestion: 1. D/C Ceftaz; if febrile start Meropenem 1 gm q 8 h; f/u sx recom ? amputation 2. Vancomycin trough is therapeutic; goal trough ~15 3. Continue iv vancomycin to 1 gm q 12 h; next trough 3/2 in am 30 min before the due dose 4. If ur sx repeat UA/UC.
--- NOTE | 2017-04-22 14:12 | PN- Pulmonary ---
Subjective HPI/Critical Care Issues: Stable fatigue Objective Current Medications: Current Medications Sig/Coral Start time Last Medication Dose Route Stop Time Status Admin Acetaminophen 500 MG TID 04/03 1156 AC 04/21 PO 2125 Albuterol Sulfate 3 ML Q4P PRN 04/15 0800 AC 04/15 INH 0755 Amlodipine Besylate 5 MG DAILY 04/03 1200 AC 04/22 PO 0930 Aspirin 81 MG DAILY 04/04 1000 AC 04/22 PO 0930 Ceftazidime 1,000 MG IQ8 04/21 1600 AC 04/22 IV 0925 Fluticasone 2 SPRAY DAILY 04/03 1155 AC 04/20 Propionate THOMAS 1031 Furosemide 40 MG 7:30 AM, & 4:30 PM 04/20 1630 AC 04/22 IV 0921 Heparin Sodium 5,000 UNIT Q8 04/15 2200 AC 04/22 (Porcine) SC 1302 Insulin Aspart 0 TIDAC/HS 04/17 1700 AC 04/22 SC 1302 Insulin Detemir 11 UNITS BID 04/22 1000 AC 04/22 SC 0930 Insulin Detemir 12 UNITS BID 04/21 1000 DC 04/21 SC 2128 Metoprolol Succinate 25 MG DAILY 04/03 1714 AC 04/22 PO 0930 Omeprazole 40 MG DAILY AC 04/11 0700 AC 04/22 PO 0514 Polyethylene Glycol 17 GM DAILY 04/21 0830 AC 04/22 PO 0930 Povidone Iodine 1 MEHRAN DAILY 04/13 1000 AC 04/21 TOP 0856 Pregabalin 50 MG TID 04/03 1155 AC 04/22 PO 0929 Vancomycin HCl 1,000 MG Q12 04/21 2200 AC 04/22 Dextrose/Water 250 ML IV 0931 Vancomycin HCl 1,250 MG Q12 04/19 2200 DC 04/21 Dextrose/Water 250 ML IV 04/21 2159 0915 Vital Signs & I&O Last 24 Hrs of Vitals and I&O: Vital Signs Date Time Temp Pulse Resp B/P B/P Pulse O2 O2 Flow FiO2 Mean Ox Delivery Rate 04/22 0800 95 Nasal 1.0L Cannula 04/22 06 98.1 77 18 142/78 94 04/22 93 Nasal 2.0L Cannula 04/21 2228 98.1 76 18 138/80 95 Nasal 1.0L Cannula 04/21 2002 93 Nasal 1.0L Cannula 02/27 1600 93 Nasal 2.0L Cannula 04/21 1417 98.1 65 20 140/70 98 Nasal 1.0L Cannula Intake & Output 04/22 1600 04/22 0800 04/22 0000 Intake Total 240 Output Total Balance 240 Intake, Oral 240 Patient 169 lb Weight Laboratory Tests 04/22 04/21 0642 0620 Chemistry Sodium (137 - 145 mmol/L) 138 136 L Potassium (3.5 - 5.1 mmol/L) 3.6 3.7 Chloride (98 - 107 mmol/L) 95 L 95 L Carbon Dioxide (22 - 30 mmol/L) 36 H 36 H Anion Gap (5 - 16) 7 5 BUN (9 - 20 mg/dL) 21 H 24 H Creatinine (0.7 - 1.2 mg/dL) 1.0 1.0 Estimated GFR (>60 ml/min) > 60 > 60 BUN/Creatinine Ratio (7 - 25 %) 21.0 24.0 Ldb-H-Pismrbvkdfv Pept (<125 pg/mL) 8030 H Hematology CBC w Diff NO MAN DIFF REQ NO MAN DIFF REQ WBC (4.8 - 10.8 /CUMM) 8.4 10.0 RBC (4.70 - 6.10 /CUMM) 2.81 L 2.80 L Hgb (14.0 - 18.0 G/DL) 8.5 L 8.4 L Hct (42 - 52 %) 25.5 L 25.2 L MCV (80.0 - 94.0 FL) 90.8 90.0 MCH (27.0 - 31.0 PG) 30.3 30.0 MCHC (33.0 - 37.0 G/DL) 33.4 33.3 RDW (11.5 - 14.5 %) 14.2 14.3 Plt Count (130 - 400 /CUMM) 557 H 527 H MPV (7.4 - 10.4 FL) 8.4 8.6 Gran % (42.2 - 75.2 %) 75.0 77.4 H Lymphocytes % (20.5 - 51.1 %) 13.2 L 12.4 L Monocytes % (1.7 - 9.3 %) 5.5 4.9 Eosinophils % (0 - 5 %) 5.2 H 4.0 Basophils % (0.0 - 2.0 %) 1.1 1.3 Absolute Granulocytes (1.4 - 6.5 /CUMM) 6.3 7.7 H Absolute Lymphocytes (1.2 - 3.4 /CUMM) 1.1 L 1.2 Absolute Monocytes (0.10 - 0.60 /CUMM) 0.5 0.5 Absolute Eosinophils (0.0 - 0.7 /CUMM) 0.4 0.4 Absolute Basophils (0.0 - 0.2 /CUMM) 0.1 0.1 Microbiology Date/Time Procedure - Status Source Growth 04/20 1500 Culture & Sensitivity - RES EXTREMITIE ESCHERICHIA COLI ENTEROBACTER CLOACAE ENTEROCOCCUS STAPH AUREUS 04/20 1500 Gram Stain - RES EXTREMITIE 04/20 1120 Urine Culture - COMP URINE ROUT YEAST Impression/Plan Impression/Plan Impression/Plan: Lungs rhonchi and scattered crackles on the right, much improved from yesterday, on high flow Heart regular rhythm with no murmur Abdomen is soft, nontender with positive bowel sounds Extremities necrotic right second and third toes; left foot petechial/ purpuric rash Land catheter is in place IMPRESSION This is a gentleman with diabetes type 1 with multiple complications including neuropathy, significant peripheral vascular disease, previous pacemaker far heart block, previous history of MRSA osteomyelitis with previous foot surgery in the left side with femoral angioplasty, worsening performance status, previous normal pulmonary function tests, multiple organ dysfunction, now has a following issues * Improving Acute on chronic hypoxemic respiratory failure related to combination of factors which include congestive heart failure both systolic and diastolic failure with effusion, rule out active coronary ischemia * Effusions due to CHF better * Significant peripheral vascular disease with gangrene and probable osteomyelitis of his left foot. Infectious disease, podiatry and vascular surgery is following pt s/p TMA rt foot, now being considered for angio and amputuation * Type 1 diabetes with multiple organ dysfunction including diabetic nephropathy , neuropathy, peripheral vascular disease and retinopathy. * CKD with renal insufficiency since admission most likely related to combination of factors including his underlying diabetic kidney disease. Now has creat which is stable. Pt did get CTA however this morning * Reduced ejection fraction with EF of 35-40% with abnormal diastolic dysfunction which appears to be chronic * Severe peripheral vascular disease with dry gangrene of the left foot s/p tma Recommendation COnt oxygen goal sat 92 COnt diuresis lasix per cardio (still has very high bnp) Watch renal function Sub cut heparin Cont to monitor glucose Keep his head of bed elevated Will follow prn Keep hob up
[2017-04-22 14:49] VITALS: BP 134/78
[2017-04-22 22:23] VITALS: BP 130/76
[2017-04-23 06:00] VITALS: BP 138/64
--- NOTE | 2017-04-23 07:52 | PN- Housestaff ---
Samira Avila MD,[facility] 04/23/17 0752: Subjective Follow-up For: Acute hypoxic respiratory failure Acute lung injury Severe peripheral vascular disease Right leg gangrene Type 1 diabetes Renal insufficiency Subjective: Patient visited today, was lying in bed comfortably in no acute distress, was alert and oriented. Currnetly on NC 1 lit. No fever or chills, no shortness of breathing, no chest pain, no other events. CXR: improved compared to previous days most likely due to incentive spirometry. Lasix changed to by mouth. Vascular surgery planning to do angiography and possible stent placement next Thursday. Skin growing VRE and MRSA Review of Systems Constitutional: Reports: see HPI. Objective Last 24 Hrs of Vital Signs/I&O Vital Signs Date Time Temp Pulse Resp B/P B/P Pulse O2 O2 Flow FiO2 Mean Ox Delivery Rate 04/23 0945 82 138/64 04/23 0944 82 138/64 04/23 0800 96 Nasal 1.0L Cannula 04/23 0600 98.8 78 20 138/64 97 04/23 0000 Nasal 1.0L Cannula 04/22 2223 97.9 73 20 130/76 96 Nasal 1.0L Cannula 04/22 2157 92 Nasal 1.0L Cannula 04/22 1600 95 Nasal 1.0L Cannula 04/22 1449 97.8 75 20 134/78 96 Nasal 1.0L Cannula 04/22 1417 93 Nasal 1.0L Cannula Intake & Output 04/23 1600 04/23 0800 04/23 0000 Intake Total 480 910 Output Total 350 600 Balance 130 310 Intake, IV 110 Intake, Oral 480 800 Number 0 Bowel Movements Output, Urine 350 600 Patient 167 lb Weight Physical Exam General Appearance: Alert, Oriented X3, Cooperative, No Acute Distress Skin: bilateral chronic wounds R LE: s/p TMA, non healing, gangrene spots L LE: chronic ulcer sacral ulcer Skin Temp/Moisture Exam: Warm/Dry Sepsis Skin Exam (color): Normal for Ethnicity HEENT: Atraumatic, EOMI, Mucous Membr. moist/pink Cardiovascular: Normal S1, Normal S2 Lungs: Improved air entry Abdomen: Soft, No Tenderness Neurological: Normal Speech Extremities: as noted above Current Medications: Current Medications Sig/Coral Start time Last Medication Dose Route Stop Time Status Admin Acetaminophen 500 MG TID 04/03 1156 AC 04/23 PO 0940 Albuterol Sulfate 3 ML Q4P PRN 04/15 0800 AC 04/15 INH 0755 Amlodipine Besylate 5 MG DAILY 04/03 1200 AC 04/23 PO 0944 Aspirin 81 MG DAILY 04/04 1000 AC 04/23 PO 0940 Ceftazidime 1,000 MG IQ8 04/21 1600 DC 04/22 IV 0925 Fluticasone 2 SPRAY DAILY 04/03 1155 AC 04/23 Propionate THOMAS 0941 Furosemide 40 MG 7:30 AM, & 4:30 PM 04/20 1630 AC 04/23 IV 0758 Heparin Sodium 5,000 UNIT Q8 04/15 2200 AC 04/23 (Porcine) SC 0508 Insulin Aspart 0 TIDAC/HS 04/17 1700 AC 04/23 SC 0904 Insulin Detemir 11 UNITS BID 04/22 1000 AC 04/23 SC 0941 Metoprolol Succinate 25 MG DAILY 04/03 1714 AC 04/23 PO 0945 Omeprazole 40 MG DAILY AC 04/11 0700 AC 04/23 PO 0508 Polyethylene Glycol 17 GM DAILY 04/21 0830 AC 04/23 PO 0943 Povidone Iodine 1 MEHRAN DAILY 04/13 1000 AC 04/23 TOP 0941 Pregabalin 50 MG TID 04/03 1155 AC 04/23 PO 0943 Vancomycin HCl 1,000 MG Q12 04/21 2200 AC 04/23 Dextrose/Water 250 ML IV 0946 Last 24 Hrs of Lab/[place] Results Last 24 Hrs of Labs/Mics: Laboratory Tests 04/23/17 0652: CBC w Diff NO MAN DIFF REQ, RBC 2.68 L, MCV 90.1, MCH 30.2, MCHC 33.5, RDW 14.7 H, MPV 8.3, Gran % 70.6, Lymphocytes % 14.8 L, Monocytes % 7.8, Eosinophils % 5.5 H, Basophils % 1.3, Absolute Granulocytes 5.2, Absolute Lymphocytes 1.1 L, Absolute Monocytes 0.6, Absolute Eosinophils 0.4, Absolute Basophils 0.1 Assessment/Plan Assessment: Mr Liu is a 71-year-old gentleman with a past medical history of type I diabetes on insulin pump (complicated by neuropathy, retinopathy and nephropathy ), complete heart block status post pacemaker, PVD previous admission to [facility] 2 weeks prior to admission for 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 He was initially admitted on the telemetry service and then subseuquently transferred to the [facility] due to hypoxia and tachycardia. After admission to [facility] patient transferred to after disscussions of comfort measures. Patient presented with siginficant improvement in mental condition while in floor and accordingly the disscusion of performing surgery was reconsidered. Acute on chronic hypoxemic respiratory failure This was considered multifactorial, including CHF, acute lung injury possibly bilateral aspiration pneumonitis. Patient also received broad spectrum antibiotics and was currently off antibiotics per ID. CXR 04/15/17: worsening of consolidation CXR: 04/17/17: mild improvement -Currently on NC - patient still DNI/DNR confirmed with family - hold off antibiotics for new consolidation (aspiration vs HCAP), follow ID pulm - received extra dose Lasix, currently BID IV - daily CXR, PO lasix with improvement - continue monitor Significant Peripharel Vascular Disease Complicated with osteomyelitis and gangrene of foot s/p MRSA OM; Right foot gangrene involving second and third toe. This morning, the patient may be considering amputation. His primary care physician Dr. Adame suggested that he needed a BKA instead of the TMA for a better prognostic outcome however due to anesthesia consideration and patient respiratory condition, TMA was performed. - patient s/p TMA - Pysch and ID on board - Patient does not have capacity to make medical desicion, will evaluate daily - will follow cutlure results from surgery (it apeared that there may not be good specimen) - Continue vanc per ID - Consider PICC line placement - vanc thr level - ceftaz discontinued yesterday - follow culture - angiography for next thursday Type II WV Over the course of the admission, Troponin peaked at 6.64 which was thought be likely due to type 2 WV. No EKG changes s/o WV. Component of volume overload, PRN diuresis while monitoring the serum creatinine closely. Echocardiogram: Left ventricular cavity size at the upper limits of normal. Mild to moderate concentric left ventricular hypertrophy. The inferior and posterior calderon are akinetic. The septum and apex contracts fairly well. Estimated ejection fraction is 35-40%. Catheter/pacemaker wire in the right ventricular cavity. Catheter/pacemaker wire in the right atrial appendage. Mild left atrial dilatation. Moderate thickening/calcification of the mitral valve leaflets. Moderate mitral annular calcification. Mild mitral regurgitation. Focal thickening of the aortic valve cusps. No aortic stenosis. Right ventricular systolic pressure estimated to be elevated at 55- 60 mmHg. Moderate to severe pulmonary hypertension. Left pleural effusion. Dilated IVC. Dr Avery, solar photovoltaic installer on board, Will monitor Cr, and further dosing changes if warranted. - continue diuresis per cardiology - Follow CXR to change lasix to PO PARRIS on CKD Could be related to DM, he also had recent angiogram that could precipitate PARRIS. Appears to be improving. Sr Cr 1.8--> ~1. Will continue to monitor. - continue to monitor Cr Type 1 Diabetes Complicated with diabetic nephropathy, neuropathy, peripheral vascular disease and retinopathy. Endocrinology on board, appreciate recomendations. - updated insuline dose daily per Endo note Skin: Unstageable pressure ulcer noted on right upper buttocks which was present on admission. Continue wound care recommendations. DNR/DNI Con carb diet 1, ground and thin Problem List: 1. Acute and chronic respiratory failure with hypoxia 2. Osteomyelitis Pain Ratin Pain Location: None Pain Goal: Pain 4 or less Pain Plan: Continuue current plan Tomorrow's Labs & Rationales: CBC SHAHIDP [place] 04/23/17 1143: Attending MD Review Statement Attending Statement Attending MD Statement: examined this patient, discuss w/resident/PA/GANG TAILER, agreed w/resident/PA/GANG TAILER, discussed with family, reviewed EMR data (avail), discussed with nursing, discussed with case mgmt, reviewed images, amended to note Attending Assessment/Plan: Patient seen/examiend bedside. labs and imaging noted. Patient with improvement in pulmoanry edema with diuretics. Patient is toelrating PO, Blood sugar is better controlled. Endo f/u. Patient had podaitry f/u for wound care which suggested not healing as it should. Abx as per ID. f/u cultures growing many bacteria. f/u final culture/sensitivity. Skin precautions, aspiration precautions. wound care consulted. Vascular surgery f/u along with podiatry f/u recommends major amputation, awating family/patient decision. Cont current care...
[2017-04-23 07:53] LABS: ABSOLUTE BASOPHIL COUNT 0.1 /CUMM (0.0-0.2); ABSOLUTE EOSINOPHIL COUNT 0.4 /CUMM (0.0-0.7); ABSOLUTE GRANULOCYTE CT 5.2 /CUMM (1.4-6.5); ABSOLUTE LYMPH COUNT 1.1 /CUMM (1.2-3.4); ABSOLUTE MONOCYTE COUNT 0.6 /CUMM (0.10-0.60); BASOPHIL % 1.3 % (0.0-2.0); EOSINOPHIL % 5.5 % (0-5); GRANULOCYTE % 70.6 % (42.2-75.2); HEMATOCRIT 24.1 % (42-52); MEAN CORPUSCULAR HGB 30.2 PG (27.0-31.0); MEAN CORPUSCULAR HGB CONC 33.5 G/DL (33.0-37.0); MEAN CORPUSCULAR VOLUME 90.1 FL (80.0-94.0); MEAN PLATELET VOLUME 8.3 FL (7.4-10.4); PLATELET COUNT 543 /CUMM (130-400); RBC DISTRIBUTION WIDTH 14.7 % (11.5-14.5); RED BLOOD CELL CT 2.68 /CUMM (4.70-6.10); WHITE BLOOD CELL COUNT 7.4 /CUMM (4.8-10.8)
--- NOTE | 2017-04-23 08:15 | PN- Diabetes ---
Assessment/Plan Diabetes Assessment: 70 y/o male, Hx of DM type 1 diagnosed when he was 14 years old. He was on an insulin pump with basal rate running at 0.9 units per hour in the past. His diabetes was complicated by neuropathy, retinopathy, nephropathy. Patient presented to the ED after sustaining an unwitnessed fall. He was admitted for positive troponin with peak troponin of 6.64, ongoing right foot infection and gangrene of 2nd toe and 3rd toe. The procedure for amputation of foot was done on 04/14/2017. He has been better and his po intake has improved. He is on Levemir 11 units twice a day; Novolog before meals was adjusted on 04/21. Before Each Meal: Bolus Insulin: Novolog < 80 mg/dl: no coverage 80-100 mg/dl: 6 units 101-120 mg/dl: 6 units 121-150 mg/dl: 6 units 151-200 mg/dl: 7 units 201-250 mg/dl: 8 units 251-300 mg/dl: 9 units 301-350 mg/dl: 10 units 351-400 mg/dl: 11 units > 400 mg/dl: 12 units His FSGs were 131, 214, 81, 118 and 198. Plan: continue the current insulin regimen for now; monitor FSGs. will follow. Subjective Subjective: He feels okay. Objective Last 24 Hrs of Vital Signs/I&O Vital Signs Date Time Temp Pulse Resp B/P B/P Pulse O2 O2 Flow FiO2 Mean Ox Delivery Rate 04/23 599 98.8 78 20 138/64 97 04/23 0000 Nasal 1.0L Cannula 04/22 2223 97.9 73 20 130/76 96 Nasal 1.0L Cannula 04/22 2157 92 Nasal 1.0L Cannula 04/22 1600 95 Nasal 1.0L Cannula 04/22 1449 97.8 75 20 134/78 96 Nasal 1.0L Cannula 04/22 1417 93 Nasal 1.0L Cannula Intake & Output 04/23 0800 04/23 0000 Intake Total 480 910 Output Total 350 600 Balance 130 310 Intake, IV 110 Intake, Oral 480 800 Number 0 Bowel Movements Output, Urine 350 600 Patient 167 lb Weight Findings Pertinent Lab/[place] Results: Laboratory Tests 04/24 651 Hematology CBC w Diff NO MAN DIFF REQ WBC (4.8 - 10.8 /CUMM) 7.4 RBC (4.70 - 6.10 /CUMM) 2.68 L Hgb (14.0 - 18.0 G/DL) 8.1 L Hct (42 - 52 %) 24.1 L MCV (80.0 - 94.0 FL) 90.1 MCH (27.0 - 31.0 PG) 30.2 MCHC (33.0 - 37.0 G/DL) 33.5 RDW (11.5 - 14.5 %) 14.7 H Plt Count (130 - 400 /CUMM) 543 H MPV (7.4 - 10.4 FL) 8.3 Gran % (42.2 - 75.2 %) 70.6 Lymphocytes % (20.5 - 51.1 %) 14.8 L Monocytes % (1.7 - 9.3 %) 7.8 Eosinophils % (0 - 5 %) 5.5 H Basophils % (0.0 - 2.0 %) 1.3 Absolute Granulocytes (1.4 - 6.5 /CUMM) 5.2 Absolute Lymphocytes (1.2 - 3.4 /CUMM) 1.1 L Absolute Monocytes (0.10 - 0.60 /CUMM) 0.6 Absolute Eosinophils (0.0 - 0.7 /CUMM) 0.4 Absolute Basophils (0.0 - 0.2 /CUMM) 0.1
--- NOTE | 2017-04-23 09:52 | RADIOLOGY REPORT ---
EXAMINATION: XR PORTABLE CHEST CLINICAL INFORMATION: Follow up of fluid overload. COMPARISON: 04/14/2017 TECHNIQUE: Portable frontal view of the chest was obtained. FINDINGS: Interval decrease in the perihilar opacities. Prominent interstitial lung markings and mild pulmonary vascular congestion remain. Heart size is within normal limits. No pneumothorax. Possible trace bilateral pleural effusions, unchanged. Right chest pacer with leads projecting over the right atrium and ventricle. No acute osseous abnormality. IMPRESSION: Slight interval decrease in the perihilar lung opacities.
--- NOTE | 2017-04-23 11:27 | PN- Vascular Surgery ---
Surgical Brief Attending Note Brief Attending Note: I had a phone conversation with the patient's son Mitchell today. Apparently, the right TMA wound is not healing well. The patient may need a major amputation. The son will discuss with the patient regarding an angiogram and level of major amputation. Tentatively, the patient is scheduled for right leg angiogram on Thursday in order to see whether he would heal a below-knee amputation. Otherwise, I will contact the son again tomorrow regarding overall goals of care and desire for further interventions.
[2017-04-23 14:06] VITALS: BP 130/62
--- NOTE | 2017-04-23 21:26 | PN- Pulmonary ---
Subjective HPI/Critical Care Issues: doing well stable fatigue Objective Current Medications: Current Medications Sig/Coral Start time Last Medication Dose Route Stop Time Status Admin Acetaminophen 500 MG TID 04/03 1156 AC 04/23 PO 0940 Albuterol Sulfate 3 ML Q4P PRN 04/15 0800 AC 04/15 INH 0755 Amlodipine Besylate 5 MG DAILY 04/03 1200 AC 04/23 PO 0944 Aspirin 81 MG DAILY 04/04 1000 AC 04/23 PO 0940 Fluticasone 2 SPRAY DAILY 04/03 1155 AC 04/23 Propionate THOMAS 0941 Furosemide 40 MG 7:30 AM, & 4:30 PM 04/24 0730 AC PO Furosemide 40 MG 7:30 AM, & 4:30 PM 04/20 1630 DC 04/23 IV 04/23 1700 1625 Heparin Sodium 5,000 UNIT Q8 04/15 2200 AC 04/23 (Porcine) SC 1330 Insulin Aspart 0 TIDAC/HS 04/17 1700 AC 04/23 SC 1725 Insulin Detemir 11 UNITS BID 04/22 1000 AC 04/23 SC 0941 Metoprolol Succinate 25 MG DAILY 04/03 1714 AC 04/23 PO 0945 Omeprazole 40 MG DAILY AC 04/11 0700 AC 04/23 PO 0508 Polyethylene Glycol 17 GM DAILY 04/21 0830 AC 04/23 PO 0943 Povidone Iodine 1 MEHRAN DAILY 04/13 1000 AC 04/23 TOP 0941 Pregabalin 50 MG TID 04/03 1155 AC 04/23 PO 1625 Vancomycin HCl 1,000 MG Q12 04/21 2200 AC 04/23 Dextrose/Water 250 ML IV 0946 Vital Signs & I&O Last 24 Hrs of Vitals and I&O: Vital Signs Date Time Temp Pulse Resp B/P B/P Pulse O2 O2 Flow FiO2 Mean Ox Delivery Rate 04/23 1600 Nasal 1.0L Cannula 04/23 1432 96 Nasal 2.0L Cannula 04/23 1406 97.8 68 22 130/62 95 Nasal 1.0L Cannula 04/23 0945 82 138/64 04/23 0944 82 138/64 04/23 0800 96 Nasal 1.0L Cannula 04/23 0600 98.8 78 20 138/64 97 04/23 0000 Nasal 1.0L Cannula 04/22 2223 97.9 73 20 130/76 96 Nasal 1.0L Cannula 04/227 92 Nasal 1.0L Cannula Intake & Output 04/23 1600 04/23 0800 04/23 0000 Intake Total 750 480 910 Output Total 950 350 600 Balance -200 130 310 Intake, IV 250 110 Intake, Oral 500 480 800 Number 0 0 Bowel Movements Output, Urine 950 350 600 Patient 167 lb Weight Impression/Plan Impression/Plan Impression/Plan: Lungs rhonchi and scattered crackles on the right, much improved from yesterday, on high flow Heart regular rhythm with no murmur Abdomen is soft, nontender with positive bowel sounds Extremities necrotic right second and third toes; left foot petechial/ purpuric rash Land catheter is in place IMPRESSION This is a gentleman with diabetes type 1 with multiple complications including neuropathy, significant peripheral vascular disease, previous pacemaker far heart block, previous history of MRSA osteomyelitis with previous foot surgery in the left side with femoral angioplasty, worsening performance status, previous normal pulmonary function tests, multiple organ dysfunction, now has a following issues * Resolved Acute on chronic hypoxemic respiratory failure related to combination of factors which include congestive heart failure both systolic and diastolic failure with effusion, rule out active coronary ischemia * Resolving Effusions due to CHF better * Significant peripheral vascular disease with gangrene and probable osteomyelitis of his left foot. Infectious disease, podiatry and vascular surgery is following pt s/p TMA rt foot, now being considered for angio and amputuation * Type 1 diabetes with multiple organ dysfunction including diabetic nephropathy , neuropathy, peripheral vascular disease and retinopathy. * CKD with renal insufficiency since admission most likely related to combination of factors including his underlying diabetic kidney disease. Now has creat which is stable. Pt did get CTA however this morning * Reduced ejection fraction with EF of 35-40% with abnormal diastolic dysfunction which appears to be chronic * Severe peripheral vascular disease with dry gangrene of the left foot s/p tma Recommendation COnt oxygen goal sat 92 COnt diuresis lasix per cardio (still has very high bnp) Watch renal function Sub cut heparin Cont to monitor glucose Keep his head of bed elevated Will follow prn Keep hob up Family to decide on further action regarding amputation and angio Pt is cleared pulm rene to go for angio and surg as his resp status has improved ,albiet with higher post op risk for NIV or vent use due to his above conditons
[2017-04-23 22:04] VITALS: BP 142/62
[2017-04-24 07:17] VITALS: BP 148/78
--- NOTE | 2017-04-24 08:27 | PN- Diabetes ---
Assessment/Plan Diabetes Assessment: 70 y/o male, Hx of DM type 1 diagnosed when he was 14 years old. He was on an insulin pump with basal rate running at 0.9 units per hour in the past. His diabetes was complicated by neuropathy, retinopathy, nephropathy. Patient presented to the ED after sustaining an unwitnessed fall. He was admitted for positive troponin with peak troponin of 6.64, ongoing right foot infection and gangrene of 2nd toe and 3rd toe. Right foot TMA was done on 2017. He has been better and his po intake has improved. Currently patient is on Levemir 11 units twice a day. Novolog before meals was adjusted on 04/21/2017. Before Each Meal: Bolus Insulin: Novolog < 80 mg/dl: no coverage 80-100 mg/dl: 6 units 101-120 mg/dl: 6 units 121-150 mg/dl: 6 units 151-200 mg/dl: 7 units 201-250 mg/dl: 8 units 251-300 mg/dl: 9 units 301-350 mg/dl: 10 units 351-400 mg/dl: 11 units > 400 mg/dl: 12 units His FSGs were 198, 254, 178, 136 and 299. Plan: continue the current insulin regimen for now; monitor FSGs; will follow. Subjective Subjective: He feels okay this morning. Objective Last 24 Hrs of Vital Signs/I&O Vital Signs Date Time Temp Pulse Resp B/P B/P Pulse O2 O2 Flow FiO2 Mean Ox Delivery Rate 04/24 0717 97.5 79 20 148/78 96 04/24 0000 Nasal 1.0L Cannula 04/23 2204 97.9 83 20 142/62 95 Nasal 1.0L Cannula 04/23 1600 Nasal 1.0L Cannula 04/23 1432 96 Nasal 2.0L Cannula 04/23 1406 97.8 68 22 130/62 95 Nasal 1.0L Cannula 04/23 0945 82 138/64 04/23 0944 82 138/64 Intake & Output 04/24 1600 04/24 0800 04/24 0000 Intake Total 1050 Output Total 550 Balance 500 Intake, IV 250 Intake, Oral 800 Output, Urine 550 Patient 170 lb Weight Findings Pertinent Lab/[place] Results: Laboratory Tests 04/24 0620 Chemistry Sodium Pending Potassium Pending Chloride Pending Carbon Dioxide Pending Anion Gap Pending BUN Pending Creatinine Pending BUN/Creatinine Ratio Pending Toxicology Vancomycin Trough Pending
--- NOTE | 2017-04-24 08:46 | PN- Housestaff ---
Samira Avila MD,[facility] 04/24/17 0846: Subjective Follow-up For: Acute hypoxic respiratory failure Acute lung injury Severe peripheral vascular disease Right leg gangrene Type 1 diabetes Renal insufficiency Subjective: Patient visited today, was lying in bed, was alert and oriented. Had moderate labored breathing, chest x-ray and pro BMP were ordered. Lasix administered. No fever or chills, no chest pain, no other events. Bs was 410, insulin based on sliding scale was administered. Review of Systems Constitutional: Reports: see HPI. Objective Last 24 Hrs of Vital Signs/I&O Vital Signs Date Time Temp Pulse Resp B/P B/P Pulse O2 O2 Flow FiO2 Mean Ox Delivery Rate 04/24 1036 28 98 Nasal 2.0L Cannula 04/24 1015 22 95 Nasal 2.0L Cannula 04/24 1007 34 93 Nasal 2.0L Cannula 04/24 1005 97.8 76 36 142/80 88 Nasal 1.0L Cannula 04/24 0800 93 Nasal 1.0L Cannula 04/24 0717 97.5 79 20 148/78 96 04/24 0000 Nasal 1.0L Cannula 04/23 2204 97.9 83 20 142/62 95 Nasal 1.0L Cannula 04/23 1600 Nasal 1.0L Cannula 04/23 1432 96 Nasal 2.0L Cannula 04/23 1406 97.8 68 22 130/62 95 Nasal 1.0L Cannula Intake & Output 04/24 1600 02 0800 04/24 0000 Intake Total 1050 Output Total 200 550 Balance -200 500 Intake, IV 250 Intake, Oral 800 Output, Urine 200 550 Patient 170 lb Weight Physical Exam General Appearance: Alert, Oriented X3, Cooperative, No Acute Distress Skin: RLE: s/p TMA, more black areas around the incision site LLE: 2X4 cm black superficial lesion over heal Skin Temp/Moisture Exam: Warm/Dry HEENT: Atraumatic, EOMI, Mucous Membr. moist/pink Cardiovascular: Normal S1, Normal S2 Lungs: Normal Air Movement, increased RR Abdomen: Soft, No Tenderness Extremities: as noted above Current Medications: Current Medications Sig/Coral Start time Last Medication Dose Route Stop Time Status Admin Acetaminophen 500 MG TID 04/03 1156 AC 04/23 PO 2136 Albuterol Sulfate 3 ML Q4P PRN 04/15 0800 AC 04/24 INH 1039 Amlodipine Besylate 5 MG DAILY 04/03 1200 AC 04/23 PO 0944 Aspirin 81 MG DAILY 04/04 1000 AC 04/23 PO 0940 Fluticasone 2 SPRAY DAILY 04/03 1155 AC 04/23 Propionate THOMAS 0941 Furosemide 20 MG ONCE ONE 04/24 1015 DC 04/24 IV 04/24 1016 1009 Furosemide 40 MG 7:30 AM, & 4:30 PM 04/24 0730 AC 04/24 PO 0642 Furosemide 40 MG 7:30 AM, & 4:30 PM 04/20 1630 DC 04/23 IV 04/23 1700 1625 Heparin Sodium 5,000 UNIT Q8 04/15 2200 AC 04/24 (Porcine) SC 0638 Insulin Aspart 0 TIDAC/HS 04/17 1700 AC 04/24 SC 0957 Insulin Detemir 11 UNITS BID 04/22 1000 AC 04/24 SC 0957 Metoprolol Succinate 25 MG DAILY 04/03 1714 AC 04/23 PO 0945 Omeprazole 40 MG DAILY AC 04/11 0700 AC 04/24 PO 0642 Polyethylene Glycol 17 GM DAILY 04/21 0830 AC 04/24 PO 0957 Povidone Iodine 1 MEHRAN DAILY 04/13 1000 AC 04/23 TOP 0941 Pregabalin 50 MG TID 04/03 1155 AC 04/24 PO 0957 Vancomycin HCl 1,000 MG Q12 04/21 2200 AC 04/24 Dextrose/Water 250 ML IV 0920 Last 24 Hrs of Lab/[place] Results Last 24 Hrs of Labs/Mics: Laboratory Tests 04/24/17 0620: Anion Gap 7, Estimated GFR > 60, BUN/Creatinine Ratio 21.8, Vancomycin Trough 27.2 H Assessment/Plan Assessment: Mr Liu is a 71-year-old gentleman with a past medical history of type I diabetes on insulin pump (complicated by neuropathy, retinopathy and nephropathy ), complete heart block status post pacemaker, PVD previous admission to [facility] 2 weeks prior to admission for 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 He was initially admitted on the telemetry service and then subseuquently transferred to the [facility] due to hypoxia and tachycardia. After admission to [facility] patient transferred to after disscussions of comfort measures. Patient presented with siginficant improvement in mental condition while in [facility] floor and accordingly the disscusion of performing surgery was reconsidered. Acute on chronic hypoxemic respiratory failure This was considered multifactorial, including CHF, acute lung injury possibly bilateral aspiration pneumonitis. Patient also received broad spectrum antibiotics and was currently off antibiotics per ID. CXR 04/15/17: worsening of consolidation CXR: 04/17/17: mild improvement -Currently on NC - patient still DNI/DNR confirmed with family - hold off antibiotics for new consolidation (aspiration vs HCAP), follow ID pulm - received extra dose Lasix, currently BID IV - daily CXR, PO lasix with improvement - continue monitor Significant Peripharel Vascular Disease Complicated with osteomyelitis and gangrene of foot s/p MRSA OM; Right foot gangrene involving second and third toe. This morning, the patient may be considering amputation. His primary care physician Dr. Adame suggested that he needed a BKA instead of the TMA for a better prognostic outcome however due to anesthesia consideration and patient respiratory condition, TMA was performed. - patient s/p TMA - Pysch and ID on board - Patient does not have capacity to make medical desicion, will evaluate daily - will follow cutlure results from surgery (it apeared that there may not be good specimen) - Continue vanc per ID - Consider PICC line placement - vanc thr level - ceftaz discontinued yesterday - follow culture - angiography for next thursday Type II ND Over the course of the admission, Troponin peaked at 6.64 which was thought be likely due to type 2 ND. No EKG changes s/o ND. Component of volume overload, PRN diuresis while monitoring the serum creatinine closely. Echocardiogram: Left ventricular cavity size at the upper limits of normal. Mild to moderate concentric left ventricular hypertrophy. The inferior and posterior calderon are akinetic. The septum and apex contracts fairly well. Estimated ejection fraction is 35-40%. Catheter/pacemaker wire in the right ventricular cavity. Catheter/pacemaker wire in the right atrial appendage. Mild left atrial dilatation. Moderate thickening/calcification of the mitral valve leaflets. Moderate mitral annular calcification. Mild mitral regurgitation. Focal thickening of the aortic valve cusps. No aortic stenosis. Right ventricular systolic pressure estimated to be elevated at 55- 60 mmHg. Moderate to severe pulmonary hypertension. Left pleural effusion. Dilated IVC. Dr Avery, director of compensation on board, Will monitor Cr, and further dosing changes if warranted. - continue diuresis per cardiology - Follow CXR to change lasix to PO PARRIS on CKD Could be related to DM, he also had recent angiogram that could precipitate PARRIS. Appears to be improving. Sr Cr 1.8--> ~1. Will continue to monitor. - continue to monitor Cr Type 1 Diabetes Complicated with diabetic nephropathy, neuropathy, peripheral vascular disease and retinopathy. Endocrinology on board, appreciate recomendations. - updated insuline dose daily per Endo note Skin: Unstageable pressure ulcer noted on right upper buttocks which was present on admission. Continue wound care recommendations. DNR/DNI Con carb diet 1, ground and thin Problem List: 1. Acute and chronic respiratory failure with hypoxia 2. Cellulitis Pain Ratin Pain Location: None Pain Goal: Pain 4 or less Pain Plan: Continue current plan Tomorrow's Labs & Rationales: CBC BEP Pro BNP CXR SaminaJeff 04/24/17 1231: Attending MD Review Statement Attending Statement Attending MD Statement: examined this patient, discuss w/resident/PA/TRAY CASTING MACHINE OPERATOR, agreed w/resident/PA/TRAY CASTING MACHINE OPERATOR, discussed with family, reviewed EMR data (avail), discussed with nursing, discussed with case mgmt, reviewed images, amended to note Attending Assessment/Plan: Patient seen/examiend bedside. Patient with mild shortness of breath this am. Obtain chest xray to assess pulmonary edema, give 1 dose of iv lasix. Continue with PO diuretics. Monitor creatinine. Patient is toelrating PO, Blood sugar is better controlled. Endo f/u. Patient had podaitry f/u for wound care which suggested not healing as it should. Abx as per ID. f/u cultures growing many bacteria. f/u final culture/ sensitivity. Skin precautions, aspiration precautions. wound care consulted. Vascular surgery f/u along with podiatry f/u recommends major amputation, awaiting family/patient decision. Plan for angiogram as per vascular surgery. Patient is moderate to high risk for his BKA and can be taken for surgery if needed. Cont current care...
[2017-04-24 10:05] VITALS: BP 142/80
--- NOTE | 2017-04-24 10:43 | RADIOLOGY REPORT ---
EXAMINATION: CR PORTABLE CHEST CLINICAL INFORMATION: Increased shortness of breath requiring increased FiO2. Please assess for interval changes with previous chest x-rays. Presumptive diagnosis of pulmonary edema. COMPARISON: Multiple prior chest x-rays, most recent of which is dated 04/23/2017. TECHNIQUE: Portable AP semierect view of the chest was obtained. FINDINGS: Right atrial and right ventricular pacer leads are unchanged. The cardiomediastinal silhouette is mildly enlarged. Low lung volumes are again noted with prominent perihilar reticular opacities again seen, right greater than left, unchanged compared to prior study. Trace bilateral pleural effusions again noted. No pneumothorax seen. Degenerative changes in the right shoulder joint and acromioclavicular joint again noted. IMPRESSION: Low lung volumes with persistent diffuse reticular opacities in the lungs with associated trace bilateral pleural effusions. Compared to prior exam, no interval changes seen. Findings may be related to pulmonary edema as clinically suspected.
[2017-04-24 14:38] VITALS: BP 130/60
--- NOTE | 2017-04-24 14:55 | PN- Infect Dx ---
Subjective Subjective: No fever; persistent SOB. Review of Systems Comments: 12 points reviewed as noted, otherwise neg. Objective Last 24 Hrs of Vital Signs/I&O Vital Signs Date Time Temp Pulse Resp B/P B/P Pulse O2 O2 Flow FiO2 Mean Ox Delivery Rate 04/24 1438 97.6 82 20 130/60 97 Nasal 2.0L Cannula 04/24 1157 68 136/78 04/24 1036 28 98 Nasal 2.0L Cannula 04/24 1015 22 95 Nasal 2.0L Cannula 04/24 1007 34 93 Nasal 2.0L Cannula 04/24 1005 97.8 76 36 142/80 88 Nasal 1.0L Cannula 04/24 0800 93 Nasal 1.0L Cannula 04/24 0717 97.5 79 20 148/78 96 04/24 0000 Nasal 1.0L Cannula 04/23 2204 97.9 83 20 142/62 95 Nasal 1.0L Cannula 04/23 1600 Nasal 1.0L Cannula Intake & Output 04/24 1600 04/24 0800 04/24 0000 Intake Total 1050 1050 Output Total 1400 550 Balance -350 500 Intake, IV 250 250 Intake, Oral 800 800 Number 0 Bowel Movements Output, Urine 1400 550 Patient 170 lb Weight Physical Exam Other Physical Findings: General Appearance: Alert, Oriented X3, Cooperative, No Acute Distress Skin: warm and dry Skin Temp/Moisture Exam: Warm/Dry Sepsis Skin Exam (color): Normal for Ethnicity HEENT: Atraumatic, EOMI, Mucous Membr. moist/pink Cardiovascular: Normal S1, Normal S2 Lungs: Normal Air Movement, bilateral crackles, improved Abdomen: Soft, No Tenderness, Land removed Neurological: Normal Speech Extremities: s/p T TMA (local erythema/drainage/wound dehiscence) Results Last 24 Hours of Lab Results: Laboratory Tests 04/24 0620 Chemistry Sodium (137 - 145 mmol/L) 137 Potassium (3.5 - 5.1 mmol/L) 4.1 Chloride (98 - 107 mmol/L) 92 L Carbon Dioxide (22 - 30 mmol/L) 38 H Anion Gap (5 - 16) 7 BUN (9 - 20 mg/dL) 24 H Creatinine (0.7 - 1.2 mg/dL) 1.1 Estimated GFR (>60 ml/min) > 60 BUN/Creatinine Ratio (7 - 25 %) 21.8 Toxicology Vancomycin Trough (10.0 - 20.0 ug/mL) 27.2 H Last 24 Hours of [place] Results: SPEC #: [id number] SONJA: 04/20/171500 STATUS: COMP RECD: 04/20/17-[address] [facility] [address]: Samira Avila MD, Albertina Heath SOURCE: BRAD ENTR: 04/20/17-[address]: Tamica LOZANO,Jackie SPDESC: ARUN Haas MD,Jeff Boone MD,Deja ORDERED: XTRM CULT COMMENT: TYPE OF SPECIMEN: SUPERFICIAL Procedure Result > GRAM STAIN Final 04/21/17-142 WHITE BLOOD CELLS FEW GRAM NEGATIVE RODS FEW > EXTREMITIES CULTURE Final 04/24/17-08 Moderate growth of: 1. ESCHERICHIA COLI 2. ENTEROBACTER CLOACAE ATTENTIONATTENTIONATTENTIONATTENTION VERY RESISTANT ORGANISM: Called to/Readback by ERROL BY LAB.LATHA 04/23/17 1152 3. VANC RESIST ENTEROCOCCUS ISOLATED Called to/Readback by ERROL by LAB.LATHA 04/23/17 1153 Light growth of: 4. METH RESIST STAPH AUREUS ISOLATED Called to/Readback by ERROL by LAB.LATHA 04/23/17 1153 E.coli E.cloacae VRE MRSA RX AB RX AB RX AB RX AB ------ -- ------ -- ------ -- ------ -- AMPICILLIN R R R CEFAZOLIN S R R AMOX/CLAV AUGM S R R AMP/SULB-UNASYN R R R CEFOXITIN R CEFTAZIDIME R CEFTRIAXONE R CIPROFLOXACIN R R GENTAMICIN S S MEROPENEM S TETRACYCLINE S TRIMETH/SULFA S R S AZITHROMYCIN R CLINDAMYCIN S ERYTHROMYCIN R OXACILLIN R VANCOMYCIN R S METH RESIST STAPH AUREUS: MICROSCAN GRAM POSITIVE PANEL ATTENTIONATTENTIONPLACE PATIENT ON CONTACT PRECAUTIONS 1. ESCHERICHIA COLI RX AB ------ -- AMPICILLIN R CEFAZOLIN S AMOXICILLIN/CLAVULINIC ACID S AMPICILLIN/SULBACTAM R CIPROFLOXACIN R GENTAMICIN S TRIMETHOPRIM/SULFAMETHOXAZOLE S 2. ENTEROBACTER CLOACAE RX AB ------ -- AMPICILLIN R CEFAZOLIN R AMOXICILLIN/CLAVULINIC ACID R AMPICILLIN/SULBACTAM R CEFOXITIN R CEFTAZIDIME R CEFTRIAXONE R CIPROFLOXACIN R GENTAMICIN S MEROPENEM S TRIMETHOPRIM/SULFAMETHOXAZOLE R 3. VANC RESIST ENTEROCOCCUS RX AB ------ -- AMPICILLIN R VANCOMYCIN R 4. METH RESIST STAPH AUREUS RX ABN ------ --- 4. METH RESIST STAPH AUREUS RX AB ------ -- CEFAZOLIN R AMOXICILLIN/CLAVULINIC ACID R AMPICILLIN/SULBACTAM R TETRACYCLINE S TRIMETHOPRIM/SULFAMETHOXAZOLE S AZITHROMYCIN R CLINDAMYCIN S ERYTHROMYCIN R OXACILLIN R VANCOMYCIN S ATTENTIONATTENTIONPLACE PATIENT ON CONTACT PRECAUTIONS Recent Imaging Studies: CXR 04/24 IMPRESSION: Low lung volumes with persistent diffuse reticular opacities in the lungs with associated trace bilateral pleural effusions. Compared to prior exam, no interval changes seen. Findings may be related to pulmonary edema as clinically suspected. 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 Complicated hospital course. Ac resp failure/treated for aspiration pneumonitis; improved, status post further diuresis, with some improvement He remains afebrile with a normal white blood cell count on Vancomycin for possible residual soft tissue infection of the right foot status post TMA over a week ago ; wound dehiscence/cellulitic skin changes; possible polymicrobial wound infection (Enterobacter cloacae MDR, E.coli, Enterococcus VRE, MRSA); with the exception of MRSA the other bacteria could represent just contamnation as this is a superficial wound cx Suggestion: 1. Only if febrile start Meropenem 1 gm q 8 h; f/u sx recom ? amputation 2. Vancomycin trough is supra therapeutic; goal trough ~15 3. Hold iv vancomycin; random level 3/3. 4. F/u vasc sx recom.
[2017-04-24 15:44] VITALS: BP 132/78
[2017-04-24 22:05] VITALS: BP 100/70
[2017-04-25 05:42] VITALS: BP 102/62
[2017-04-25 08:38] LABS: ABSOLUTE BASOPHIL COUNT 0.1 /CUMM (0.0-0.2); ABSOLUTE EOSINOPHIL COUNT 0.4 /CUMM (0.0-0.7); ABSOLUTE GRANULOCYTE CT 4.5 /CUMM (1.4-6.5); ABSOLUTE LYMPH COUNT 1.5 /CUMM (1.2-3.4); ABSOLUTE MONOCYTE COUNT 0.5 /CUMM (0.10-0.60); BASOPHIL % 1.4 % (0.0-2.0); EOSINOPHIL % 5.2 % (0-5); GRANULOCYTE % 64.5 % (42.2-75.2); HEMATOCRIT 23.4 % (42-52); MEAN CORPUSCULAR HGB 30.1 PG (27.0-31.0); MEAN CORPUSCULAR HGB CONC 33.1 G/DL (33.0-37.0); MEAN CORPUSCULAR VOLUME 90.8 FL (80.0-94.0); MEAN PLATELET VOLUME 8.2 FL (7.4-10.4); PLATELET COUNT 555 /CUMM (130-400); RBC DISTRIBUTION WIDTH 14.9 % (11.5-14.5); RED BLOOD CELL CT 2.58 /CUMM (4.70-6.10)
--- NOTE | 2017-04-25 09:06 | PN- Housestaff ---
Estefani LOZANO[facility] 04/25/17 0905: Subjective Follow-up For: Acute hypoxic respiratory failure Acute lung injury Severe peripheral vascular disease Right leg gangrene Type 1 diabetes Renal insufficiency Subjective: Patient was seen and examined at bedside. He states he still feels short of breath despite being on oxygen. In general he doesn't feel very good but is unable to elaborate on this. No acute events overnight. Review of Systems Constitutional: Reports: no symptoms. Objective Last 24 Hrs of Vital Signs/I&O Vital Signs Date Time Temp Pulse Resp B/P B/P Pulse O2 O2 Flow FiO2 Mean Ox Delivery Rate 04/25 1152 92 210/72 04/25 1152 92 210/72 04/25 0542 98.0 75 20 102/62 97 Nasal 2.0L Cannula 04/25 0000 95 Nasal 2.0L Cannula 04/24 2205 98.0 83 20 100/70 97 04/24 1600 95 Nasal 2.0L Cannula 04/24 1544 78 42 132/78 95 Nasal 2.0L Cannula 04/24 1438 97.6 82 20 130/60 97 Nasal 2.0L Cannula Intake & Output 04/25 1600 04/25 0800 04/25 0000 Intake Total 240 450 Output Total 200 200 Balance -200 240 250 Intake, IV 10 Intake, Oral 240 440 Number 0 Bowel Movements Output, Urine 200 200 Patient 165 lb Weight Physical Exam General Appearance: Alert, Oriented X3, Cooperative, Mild Distress Skin Temp/Moisture Exam: Warm/Dry Sepsis Skin Exam (color): Normal for Ethnicity HEENT: Atraumatic Cardiovascular: Normal S1, Normal S2, No Murmurs Lungs: Clear to Auscultation, Normal Air Movement Abdomen: Soft, No Tenderness Neurological: Normal Speech Extremities: RLE: s/p TMA, LLE: superficial lesion over heal Assessment/Plan Assessment: Mr Liu is a 71-year-old gentleman with a past medical history of type I diabetes on insulin pump (complicated by neuropathy, retinopathy and nephropathy ), complete heart block status post pacemaker, PVD who presented to [facility] with a chief concern of a questionable syncopal episode He was initially admitted on the telemetry service and then subseuquently transferred to the [facility]CU due to hypoxia and tachycardia. After admission to CRCU patient transferred to after disscussions of comfort measures. Patient presented with siginficant improvement in mental condition while in [facility] floor and accordingly the disscusion of performing surgery was reconsidered. Assessment: 1. Acute on Chronic Hypoxemic Respiratory Failure 2. Peripharel Vascular Disease 3. Type II MO - resolved 4. PARRIS - resolved 5. Type 1 Diabetes complicated with diabetic nephropathy, neuropathy, peripheral vascular disease and retinopathy. 6. Pressure Ulcer - present on admission Plan: * Continue supplemental oxygen to maintain sats >92%. Currently on 4.5L * Continue TRC/nebs prn * Hold Vanc as his levels are supratherapeutic. * start Meropenem 1 gm q8 if patient spikes a fever * Continue Lasix for diuresis * Patient is scheduled for right leg angiogram on Thursday in order to see whether he would heal a below-knee amputation. 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 This morning, the patient may be considering amputation. His primary care physician Dr. Adame suggested that he needed a BKA instead of the TMA for a better prognostic outcome however due to anesthesia consideration and patient respiratory condition, TMA was performed. - patient s/p TMA - Pysch and ID on board - Patient does not have capacity to make medical desicion, will evaluate daily - will follow cutlure results from surgery (it apeared that there may not be good specimen) - Continue vanc per ID - Consider PICC line placement - vanc thr level - ceftaz discontinued yesterday - follow culture - angiography for next thursday Over the course of the admission, Troponin peaked at 6.64 which was thought be likely due to type 2 MO. No EKG changes s/o MO. Component of volume overload, PRN diuresis while monitoring the serum creatinine closely. Dr Avery, warranty administrator on board, Will monitor Cr, and further dosing changes if warranted. - continue diuresis per cardiology - Follow CXR to change lasix to PO Could be related to DM, he also had recent angiogram that could precipitate PARRIS. Appears to be improving. Sr Cr 1.8--> ~1. Will continue to monitor. - continue to monitor Cr Endocrinology on board, appreciate recomendations. - updated insuline dose daily per Endo note Skin: Unstageable pressure ulcer noted on right upper buttocks which was present on admission. Continue wound care recommendations. DNR/DNI Con carb diet 1, ground and thin Problem List: 1. Peripheral vascular disease Pain Ratin Pain Location: none Pain Goal: Remain pain free Pain Plan: none Tomorrow's Labs & Rationales: GARCIA VALENCIA MD, Yiannis 04/25/17 1446: Attending MD Review Statement Attending Statement Attending MD Statement: examined this patient, discuss w/resident/PA/SAND BOBBER, agreed w/resident/PA/SAND BOBBER, reviewed EMR data (avail) Attending Assessment/Plan: Doing well, will continue current management. none Tomorrow's Labs & Rationales: GARCIA VALENCIA MD, Yiannis 04/25/17 1446: Attending MD Review Statement Attending Statement Attending MD Statement: examined this patient, discuss w/resident/PA/SAND BOBBER, agreed w/resident/PA/SAND BOBBER, reviewed EMR data (avail) Attending Assessment/Plan: Doing well, will continue current management.
--- NOTE | 2017-04-25 09:27 | PN- Diabetes ---
Assessment/Plan Diabetes Assessment: The patient states he is eating okay. His blood sugars yesterday were 299 before breakfast 119 before lunch 347 before dinner and 289 at bedtime. This morning his fingerstick blood sugars 6 AM was only 72. The patient is presently on Levemir 11 units twice a day. He is also on NovoLog sliding scale starting with 6 units for sugar 80-150 before meals with a separate bedtime sliding scale. It appears that the patient got 9 units of Levemir at 10:00 last night. I believe that the nurse who was on last night may have used the premeal sliding scale rather than the bedtime sliding scale for coverage at bedtime. Plan: Suggest continue the present insulin for now. Check the patient's blood sugar and make sure he has a good breakfast this morning. Subjective Subjective: Feels discovered Review of Systems Constitutional: Denies: chills, fever. Respiratory: Reports: short of breath. Gastrointestinal: Denies: abdominal pain. Objective Last 24 Hrs of Vital Signs/I&O Vital Signs Date Time Temp Pulse Resp B/P B/P Pulse O2 O2 Flow FiO2 Mean Ox Delivery Rate 04/25 0542 98.0 75 20 102/62 97 Nasal 2.0L Cannula 04/25 0000 95 Nasal 2.0L Cannula 04/24 2204 98.0 83 20 100/70 97 04/24 1600 95 Nasal 2.0L Cannula 04/24 1544 78 42 132/78 95 Nasal 2.0L Cannula 04/24 1438 97.6 82 20 130/60 97 Nasal 2.0L Cannula 04/24 1157 68 136/78 04/24 1036 28 98 Nasal 2.0L Cannula 04/24 1015 22 95 Nasal 2.0L Cannula 04/24 1007 34 93 Nasal 2.0L Cannula 04/24 1005 97.8 76 36 142/80 88 Nasal 1.0L Cannula Intake & Output 04/25 1600 04/25 0800 04/25 0000 Intake Total 240 450 Output Total 200 Balance 240 250 Intake, IV 10 Intake, Oral 240 440 Number 0 Bowel Movements Output, Urine 200 Patient 165 lb Weight Vital Signs Date Time Temp Pulse Resp B/P B/P Pulse O2 O2 Flow FiO2 Mean Ox Delivery Rate 04/25 0542 98.0 75 20 102/62 97 Nasal 2.0L Cannula 04/25 0000 95 Nasal 2.0L Cannula 04/24 2205 98.0 83 20 100/70 97 04/24 1600 95 Nasal 2.0L Cannula 04/24 1544 78 42 132/78 95 Nasal 2.0L Cannula 04/24 1438 97.6 82 20 130/60 97 Nasal 2.0L Cannula 04/24 1157 68 136/78 04/24 1036 28 98 Nasal 2.0L Cannula 04/24 1015 22 95 Nasal 2.0L Cannula 04/24 1007 34 93 Nasal 2.0L Cannula 04/24 1005 97.8 76 36 142/80 88 Nasal 1.0L Cannula Intake & Output 04/25 1600 04/25 0800 04/25 0000 Intake Total 240 450 Output Total 200 Balance 240 250 Intake, IV 10 Intake, Oral 240 440 Number 0 Bowel Movements Output, Urine 200 Patient 165 lb Weight Physical Exam General Appearance: alert, awake, thin Head: normal appearance Neck: normal inspection Cardiovascular: regular rate/rhythm Abdomen: normal bowel sounds Current Medications: Current Medications Sig/Coral Start time Last Medication Dose Route Stop Time Status Admin Acetaminophen 500 MG TID 04/03 1156 AC 04/24 PO 2143 Albuterol Sulfate 3 ML Q4P PRN 04/15 0800 AC 04/24 INH 1039 Amlodipine Besylate 5 MG DAILY 04/03 1200 AC 04/24 PO 1157 Aspirin 81 MG DAILY 04/04 1000 AC 04/24 PO 1150 Fluticasone 2 SPRAY DAILY 04/03 1155 AC 04/23 Propionate THOMAS 0941 Furosemide 40 MG 7:30 AM, & 4:30 PM 04/25 0730 AC IV Furosemide 40 MG ONCE ONE 04/24 1545 DC 04/24 IV 04/24 1546 1610 Furosemide 20 MG ONCE ONE 04/24 1015 DC 04/24 IV 04/24 1016 1009 Furosemide 40 MG 7:30 AM, & 4:30 PM 04/24 0730 DC 04/24 PO 0642 Heparin Sodium 5,000 UNIT Q8 04/15 2200 AC 04/25 (Porcine) SC 0539 Insulin Aspart 0 TIDAC/HS 04/17 1700 AC 04/24 SC 2143 Insulin Detemir 11 UNITS BID 04/22 1000 AC 04/24 SC 2144 Metoprolol Succinate 25 MG DAILY 04/03 1714 AC 04/24 PO 1150 Omeprazole 40 MG DAILY AC 04/11 0700 AC 03/03 PO 0539 Polyethylene Glycol 17 GM DAILY 04/21 0830 AC 04/24 PO 0957 Povidone Iodine 1 MEHRAN DAILY 04/13 1000 AC 04/24 TOP 1151 Pregabalin 50 MG TID 04/03 1155 AC 04/24 PO 2143 Vancomycin HCl 1,000 MG Q12 04/21 2200 DC 04/24 Dextrose/Water 250 ML IV 0920 Findings Pertinent Lab/[place] Results: Laboratory Tests 04/25 0714 Chemistry Sodium (137 - 145 mmol/L) 139 Potassium (3.5 - 5.1 mmol/L) 3.7 Chloride (98 - 107 mmol/L) 94 L Carbon Dioxide (22 - 30 mmol/L) 37 H Anion Gap (5 - 16) 8 BUN (9 - 20 mg/dL) 28 H Creatinine (0.7 - 1.2 mg/dL) 1.2 Estimated GFR (>60 ml/min) > 60 BUN/Creatinine Ratio (7 - 25 %) 23.3 [id number] Pept (<125 pg/mL) Pending Hematology CBC w Diff NO MAN DIFF REQ WBC (4.8 - 10.8 /CUMM) 7.0 RBC (4.70 - 6.10 /CUMM) 2.58 L Hgb (14.0 - 18.0 G/DL) 7.7 L Hct (42 - 52 %) 23.4 L MCV (80.0 - 94.0 FL) 90.8 MCH (27.0 - 31.0 PG) 30.1 MCHC (33.0 - 37.0 G/DL) 33.1 RDW (11.5 - 14.5 %) 14.9 H Plt Count (130 - 400 /CUMM) 555 H MPV (7.4 - 10.4 FL) 8.2 Gran % (42.2 - 75.2 %) 64.5 Lymphocytes % (20.5 - 51.1 %) 21.3 Monocytes % (1.7 - 9.3 %) 7.6 Eosinophils % (0 - 5 %) 5.2 H Basophils % (0.0 - 2.0 %) 1.4 Absolute Granulocytes (1.4 - 6.5 /CUMM) 4.5 Absolute Lymphocytes (1.2 - 3.4 /CUMM) 1.5 Absolute Monocytes (0.10 - 0.60 /CUMM) 0.5 Absolute Eosinophils (0.0 - 0.7 /CUMM) 0.4 Absolute Basophils (0.0 - 0.2 /CUMM) 0.1 Toxicology Vancomycin Trough (10.0 - 20.0 ug/mL) Pending
[2017-04-25 14:36] VITALS: BP 150/71
--- NOTE | 2017-04-25 16:47 | RADIOLOGY REPORT ---
EXAMINATION: XR PORTABLE CHEST CLINICAL INFORMATION: Follow-up fluid overload COMPARISON: None TECHNIQUE: Portable frontal view of the chest was obtained. FINDINGS: Heart is enlarged, vascular congestion is improving however not cleared yet. Bilateral subpulmonic pleural effusions. Cardiac device projecting over the RIGHT hemithorax remain in place. IMPRESSION: Improving congestive heart failure not completely resolved yet.
[2017-04-25 22:22] VITALS: BP 122/76
[2017-04-26 05:53] VITALS: BP 110/80
[2017-04-26 09:34] LABS: ABSOLUTE BASOPHIL COUNT 0.1 /CUMM (0.0-0.2); ABSOLUTE EOSINOPHIL COUNT 0.4 /CUMM (0.0-0.7); ABSOLUTE GRANULOCYTE CT 4.4 /CUMM (1.4-6.5); ABSOLUTE LYMPH COUNT 1.5 /CUMM (1.2-3.4); ABSOLUTE MONOCYTE COUNT 0.5 /CUMM (0.10-0.60); BASOPHIL % 1.2 % (0.0-2.0); EOSINOPHIL % 6.3 % (0-5); GRANULOCYTE % 63.4 % (42.2-75.2); HEMATOCRIT 23.1 % (42-52); MEAN CORPUSCULAR HGB 29.9 PG (27.0-31.0); MEAN CORPUSCULAR HGB CONC 32.9 G/DL (33.0-37.0); MEAN CORPUSCULAR VOLUME 91.1 FL (80.0-94.0); MEAN PLATELET VOLUME 8.1 FL (7.4-10.4); PLATELET COUNT 553 /CUMM (130-400); RBC DISTRIBUTION WIDTH 15.2 % (11.5-14.5); RED BLOOD CELL CT 2.54 /CUMM (4.70-6.10); WHITE BLOOD CELL COUNT 6.9 /CUMM (4.8-10.8)
--- NOTE | 2017-04-26 10:29 | PN- Housestaff ---
See Addendum Subjective Follow-up For: Acute hypoxic respiratory failure Acute lung injury Severe peripheral vascular disease Right leg gangrene Type 1 diabetes Renal insufficiency Subjective: Patient was seen and examined at bedside. He reports doing okay. Feels his condition is same as before. Offers no complaints. Review of Systems Constitutional: Reports: no symptoms. Objective Last 24 Hrs of Vital Signs/I&O Vital Signs Date Time Temp Pulse Resp B/P B/P Pulse O2 O2 Flow FiO2 Mean Ox Delivery Rate 04/26 0553 98.3 74 20 110/80 94 Nasal 2.0L Cannula 04/26 0000 96 Nasal 2.0L Cannula 04/25 2222 98.4 74 20 122/76 96 Nasal 2.0L Cannula 04/25 1436 98.1 76 18 150/71 91 Nasal 1.5L Cannula 04/25 1152 92 210/72 04/25 1152 92 210/72 Intake & Output 04/26 1600 / 0800 04/26 0000 Intake Total 120 240 Output Total 200 450 200 Balance -200 -330 40 Intake, Oral 120 240 Output, Urine 200 450 200 Patient 167 lb Weight Physical Exam General Appearance: Alert, Oriented X3, Cooperative, Mild Distress Skin Temp/Moisture Exam: Warm/Dry Sepsis Skin Exam (color): Normal for Ethnicity HEENT: Atraumatic Neck: Supple Cardiovascular: Normal S1, Normal S2, No Murmurs Lungs: Clear to Auscultation, Normal Air Movement Abdomen: Soft, No Tenderness Neurological: Normal Speech Extremities: RLE: s/p TMA, LLE: superficial lesion over heal Assessment/Plan Assessment: Mr Liu is a 71-year-old gentleman with a past medical history of type I diabetes on insulin pump (complicated by neuropathy, retinopathy and nephropathy ), complete heart block status post pacemaker, PVD who presented to [facility] with a chief concern of a questionable syncopal episode He was initially admitted on the telemetry service and then subseuquently transferred to the CRCU due to hypoxia and tachycardia. After admission to CRCU patient transferred to after disscussions of comfort measures. Patient presented with siginficant improvement in mental condition while in floor and accordingly the disscusion of performing surgery was reconsidered. Assessment: 1. Acute on Chronic Hypoxemic Respiratory Failure 2. Peripharel Vascular Disease 3. Type II OR - resolved 4. PARRIS 5. Type 1 Diabetes complicated with diabetic nephropathy, neuropathy, peripheral vascular disease and retinopathy. 6. Pressure Ulcer - present on admission Plan: * Continue supplemental oxygen to maintain sats >92%. Currently on 2L * Continue TRC/nebs prn * Hold Vanc as his levels are supratherapeutic. * start Meropenem 1 gm q8 if patient spikes a fever * Continue Lasix for diuresis * He has mild elevated in his Cr today 1.3. Will trend Cr. Avoid nephrotoxins * Patient is scheduled for right leg angiogram on Thursday in order to see whether he would heal a below-knee amputation. * DVT Prophylaxis: Heparin SC x3 * Diet: Diabetic * Code: DNR/DNI Problem List: 1. PARRIS (acute kidney injury) Pain Ratin Pain Location: none Pain Goal: Remain pain free Pain Plan: none Tomorrow's Labs & Rationales: CBC, BEP
--- NOTE | 2017-04-26 10:37 | PN- Diabetes ---
Assessment/Plan Diabetes Assessment: The patient developed low sugar this morning again. He was not covered at all at bedtime according to the bedtime sliding scale. His sugar at bedtime was 217 and this morning was 59. He is mildly confused this morning. According to the nurses he has been eating okay. Plan: Suggest reduce the Levemir to 9 units twice a day. Continue the present sliding scale NovoLog. Subjective Subjective: Feels okay but is mildly confused Objective Last 24 Hrs of Vital Signs/I&O Vital Signs Date Time Temp Pulse Resp B/P B/P Pulse O2 O2 Flow FiO2 Mean Ox Delivery Rate 04/26 0553 98.3 74 20 110/80 94 Nasal 2.0L Cannula 04/26 0000 96 Nasal 2.0L Cannula 04/25 2222 98.4 74 20 122/76 96 Nasal 2.0L Cannula 04/25 1436 98.1 76 18 150/71 91 Nasal 1.5L Cannula 04/25 1152 92 210/72 04/25 1152 92 210/72 Intake & Output 04/26 1600 04/26 0804/26 0000 Intake Total 120 240 Output Total 450 200 Balance -330 40 Intake, Oral 120 240 Output, Urine 450 200 Patient 167 lb Weight Vital Signs Date Time Temp Pulse Resp B/P B/P Pulse O2 O2 Flow FiO2 Mean Ox Delivery Rate 04/26 0553 98.3 74 20 110/80 94 Nasal 2.0L Cannula 04/26 0000 96 Nasal 2.0L Cannula 04/25 2222 98.4 74 20 122/76 96 Nasal 2.0L Cannula 04/25 1436 98.1 76 18 150/71 91 Nasal 1.5L Cannula 04/25 1152 92 210/72 04/25 1152 92 210/72 Intake & Output 04/26 1600 04 0800 /04 0000 Intake Total 120 240 Output Total 450 200 Balance -330 40 Intake, Oral 120 240 Output, Urine 450 200 Patient 167 lb Weight Physical Exam General Appearance: alert, awake, comfortable Head: normal appearance Neck: normal inspection Respiratory: normal breath sounds Cardiovascular: regular rate/rhythm Abdomen: normal bowel sounds Current Medications: Current Medications Sig/Coral Start time Last Medication Dose Route Stop Time Status Admin Acetaminophen 500 MG TID 04/03 1156 AC 04/25 PO 2104 Albuterol Sulfate 3 ML Q4P PRN 04/15 0800 AC 04/24 INH 1039 Amlodipine Besylate 5 MG DAILY 04/03 1200 AC 04/25 PO 1152 Aspirin 81 MG DAILY 04/04 1000 AC 04/25 PO 1152 Fluticasone 2 SPRAY DAILY 04/03 1155 AC 04/25 Propionate THOMAS 1200 Furosemide 40 MG 7:30 AM, & 4:30 PM 04/25 0730 AC 04/26 IV 0633 Heparin Sodium 5,000 UNIT Q8 04/15 2200 AC 04/26 (Porcine) SC 0635 Insulin Aspart 0 TIDAC/HS 04/17 1700 AC 04/25 SC 1812 Insulin Detemir 11 UNITS BID 04/22 1000 AC 04/25 SC 2109 Metoprolol Succinate 25 MG DAILY 04/03 1714 AC 04/25 PO 1152 Omeprazole 40 MG DAILY AC 04/11 0700 AC 04/26 PO 0631 Polyethylene Glycol 17 GM DAILY 04/21 0830 AC 04/25 PO 1153 Povidone Iodine 1 MEHRAN DAILY 04/13 1000 AC 04/25 TOP 1304 Pregabalin 50 MG TID 04/03 1155 AC 04/25 PO 2104 Senna 187 MG AT BEDTIME 04/25 2200 AC 04/26 PO 0203 Findings Pertinent Lab/[place] Results: Laboratory Tests 04/26 0833 Chemistry Sodium (137 - 145 mmol/L) 138 Potassium (3.5 - 5.1 mmol/L) 4.1 Chloride (98 - 107 mmol/L) 94 L Carbon Dioxide (22 - 30 mmol/L) 35 H Anion Gap (5 - 16) 9 BUN (9 - 20 mg/dL) 29 H Creatinine (0.7 - 1.2 mg/dL) 1.3 H Estimated GFR (>60 ml/min) 55 L BUN/Creatinine Ratio (7 - 25 %) 22.3 Hematology CBC w Diff NO MAN DIFF REQ WBC (4.8 - 10.8 /CUMM) 6.9 RBC (4.70 - 6.10 /CUMM) 2.54 L Hgb (14.0 - 18.0 G/DL) 7.6 L Hct (42 - 52 %) 23.1 L MCV (80.0 - 94.0 FL) 91.1 MCH (27.0 - 31.0 PG) 29.9 MCHC (33.0 - 37.0 G/DL) 32.9 L RDW (11.5 - 14.5 %) 15.2 H Plt Count (130 - 400 /CUMM) 553 H MPV (7.4 - 10.4 FL) 8.1 Gran % (42.2 - 75.2 %) 63.4 Lymphocytes % (20.5 - 51.1 %) 21.7 Monocytes % (1.7 - 9.3 %) 7.4 Eosinophils % (0 - 5 %) 6.3 H Basophils % (0.0 - 2.0 %) 1.2 Absolute Granulocytes (1.4 - 6.5 /CUMM) 4.4 Absolute Lymphocytes (1.2 - 3.4 /CUMM) 1.5 Absolute Monocytes (0.10 - 0.60 /CUMM) 0.5 Absolute Eosinophils (0.0 - 0.7 /CUMM) 0.4 Absolute Basophils (0.0 - 0.2 /CUMM) 0.1
--- NOTE | 2017-04-26 15:02 | PN- Infect Dx ---
Subjective Subjective: No fever; SOB present. Review of Systems Comments: 12 points reviewed a noted, otherwise negative. Objective Last 24 Hrs of Vital Signs/I&O Vital Signs Date Time Temp Pulse Resp B/P B/P Pulse O2 O2 Flow FiO2 Mean Ox Delivery Rate 04/26 1040 83 198/80 04/26 1040 93 198/80 04/26 0553 98.3 74 20 110/80 94 Nasal 2.0L Cannula 04/26 0000 96 Nasal 2.0L Cannula 04/25 2222 98.4 74 20 122/76 96 Nasal 2.0L Cannula Intake & Output 04/26 1600 04/26 0800 04/26 0000 Intake Total 120 240 Output Total 200 450 200 Balance -200 -330 40 Intake, Oral 120 240 Output, Urine 200 450 200 Patient 167 lb Weight Physical Exam Other Physical Findings: General Appearance: Alert, Oriented X3, Cooperative, No Acute Distress Skin: warm and dry Skin Temp/Moisture Exam: Warm/Dry Sepsis Skin Exam (color): Normal for Ethnicity HEENT: Atraumatic, EOMI, Mucous Membr. moist/pink Cardiovascular: Normal S1, Normal S2 Lungs: Normal Air Movement, bilateral crackles, improved Abdomen: Soft, No Tenderness, Land removed Neurological: Normal Speech Extremities: s/p T TMA (local erythema/drainage/wound dehiscence) Results Last 24 Hours of Lab Results: Laboratory Tests 04/26 0833 Chemistry Sodium (137 - 145 mmol/L) 138 Potassium (3.5 - 5.1 mmol/L) 4.1 Chloride (98 - 107 mmol/L) 94 L Carbon Dioxide (22 - 30 mmol/L) 35 H Anion Gap (5 - 16) 9 BUN (9 - 20 mg/dL) 29 H Creatinine (0.7 - 1.2 mg/dL) 1.3 H Estimated GFR (>60 ml/min) 55 L BUN/Creatinine Ratio (7 - 25 %) 22.3 Hematology CBC w Diff NO MAN DIFF REQ WBC (4.8 - 10.8 /CUMM) 6.9 RBC (4.70 - 6.10 /CUMM) 2.54 L Hgb (14.0 - 18.0 G/DL) 7.6 L Hct (42 - 52 %) 23.1 L MCV (80.0 - 94.0 FL) 91.1 MCH (27.0 - 31.0 PG) 29.9 MCHC (33.0 - 37.0 G/DL) 32.9 L RDW (11.5 - 14.5 %) 15.2 H Plt Count (130 - 400 /CUMM) 553 H MPV (7.4 - 10.4 FL) 8.1 Gran % (42.2 - 75.2 %) 63.4 Lymphocytes % (20.5 - 51.1 %) 21.7 Monocytes % (1.7 - 9.3 %) 7.4 Eosinophils % (0 - 5 %) 6.3 H Basophils % (0.0 - 2.0 %) 1.2 Absolute Granulocytes (1.4 - 6.5 /CUMM) 4.4 Absolute Lymphocytes (1.2 - 3.4 /CUMM) 1.5 Absolute Monocytes (0.10 - 0.60 /CUMM) 0.5 Absolute Eosinophils (0.0 - 0.7 /CUMM) 0.4 Absolute Basophils (0.0 - 0.2 /CUMM) 0.1 Last 24 Hours of [place] Results: SPEC #: [id number] SONJA: 04/20/17 STATUS: COMP RECD: 04/20/171553 SUBM DR: Samira Avila MD, Albertina Heath S[facility] EN[facility]: 04/20/17-[address]: Tamica LOZANO,Jackie SPDESC: ARUN Haas MD,Jeff Boone MD,Deja ORDERED: XTRM CULT COMMENT: TYPE OF SPECIMEN: SUPERFICIAL Procedure Result > GRAM STAIN Final 04/21/17-1426 WHITE BLOOD CELLS FEW GRAM NEGATIVE RODS FEW > EXTREMITIES CULTURE Final 04/24/17-0833 Moderate growth of: 1. ESCHERICHIA COLI 2. ENTEROBACTER CLOACAE ATTENTIONATTENTIONATTENTIONATTENTION VERY RESISTANT ORGANISM: Called to/Readback by ERROL BY LAB.LATHA 04/23/17 1152 3. VANC RESIST ENTEROCOCCUS ISOLATED Called to/Readback by ERROL by LAB.LATHA 04/23/17 1153 Light growth of: 4. METH RESIST STAPH AUREUS ISOLATED Called to/Readback by ERROL by LAB.LATHA 04/23/17 1153 E.coli E.cloacae VRE MRSA RX AB RX AB RX AB RX AB ------ -- ------ -- ------ -- ------ -- AMPICILLIN R R R CEFAZOLIN S R R AMOX/CLAV AUGM S R R AMP/SULB-UNASYN R R R CEFOXITIN R CEFTAZIDIME R CEFTRIAXONE R CIPROFLOXACIN R R GENTAMICIN S S MEROPENEM S TETRACYCLINE S TRIMETH/SULFA S R S AZITHROMYCIN R CLINDAMYCIN S ERYTHROMYCIN R OXACILLIN R VANCOMYCIN R S METH RESIST STAPH AUREUS: MICROSCAN GRAM POSITIVE PANEL ATTENTIONATTENTIONPLACE PATIENT ON CONTACT PRECAUTIONS 1. ESCHERICHIA COLI RX AB ------ -- AMPICILLIN R CEFAZOLIN S AMOXICILLIN/CLAVULINIC ACID S AMPICILLIN/SULBACTAM R CIPROFLOXACIN R GENTAMICIN S TRIMETHOPRIM/SULFAMETHOXAZOLE S 2. ENTEROBACTER CLOACAE RX AB ------ -- AMPICILLIN R CEFAZOLIN R AMOXICILLIN/CLAVULINIC ACID R AMPICILLIN/SULBACTAM R CEFOXITIN R CEFTAZIDIME R CEFTRIAXONE R CIPROFLOXACIN R GENTAMICIN S MEROPENEM S TRIMETHOPRIM/SULFAMETHOXAZOLE R 3. VANC RESIST ENTEROCOCCUS RX AB ------ -- AMPICILLIN R VANCOMYCIN R 4. METH RESIST STAPH AUREUS RX ABN ------ --- 4. METH RESIST STAPH AUREUS RX AB ------ -- CEFAZOLIN R AMOXICILLIN/CLAVULINIC ACID R AMPICILLIN/SULBACTAM R TETRACYCLINE S TRIMETHOPRIM/SULFAMETHOXAZOLE S AZITHROMYCIN R CLINDAMYCIN S ERYTHROMYCIN R OXACILLIN R VANCOMYCIN S ATTENTIONATTENTIONPLACE PATIENT ON CONTACT PRECAUTIONS Recent Imaging Studies: CXR IMPRESSION: Improving congestive heart failure not completely resolved yet. 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 Complicated hospital course. Ac resp failure/treated for aspiration pneumonitis; improved, status post further diuresis, with CXR on 04/25 revealing pulm edema improvement He remains afebrile with a normal white blood cell count on Vancomycin for possible residual soft tissue infection of the right foot status post TMA over a week ago ; wound dehiscence/cellulitic skin changes; possible polymicrobial wound infection (Enterobacter cloacae MDR, E.coli, Enterococcus VRE, MRSA); with the exception of MRSA the other bacteria could represent just contamnation as this is a superficial wound cx Mild PARRIS Suggestion: 1. Only if febrile start Meropenem 1 gm q 12 h; f/u sx recom 2. Vancomycin trough is supra therapeutic; goal trough ~15 3. Hold iv vancomycin; random level 3/ till elevated at 22; repeat random vanco level 04/28. 4. LE angiogram 04/28 to eval if BKA would heal
[2017-04-26 15:08] VITALS: BP 130/62
[2017-04-26 22:18] VITALS: BP 124/58
[2017-04-27 05:55] VITALS: BP 124/58
--- NOTE | 2017-04-27 07:51 | PN- Housestaff ---
Samira Avila MD,[facility] 04/27/17 0750: Subjective Follow-up For: Acute hypoxic respiratory failure Acute lung injury Severe peripheral vascular disease Right leg gangrene Type 1 diabetes Renal insufficiency- resolved Subjective: Summary: Left foot TMA 04/14 Planned for 1w of Vanc after surgery initially Cutlure from surgery was not sent Superficial culture 04/20 : VRE, Ecoli, MRSA (sens to Cotrim), suspecting contamination except MRSA Continued on Vanc later Vanc level on 04/25: 22 ug/ml, vanc on hold since Monday 04/24 Next vanc level: 04/28 Planned for Angiography/angioplasty on 04/[address] Montgomery, history of PARRIS (will consider hydration) Currently on NC, on IV lasix, added fluid restriction, balance negative after fluid restriction and. he Patient visited today, was lying in bed comfortably in no acute distress, was alert and oriented. No major change in symptoms. No fever or chills, still on NC, no shortness of breathing, relatively improved breathing (RR normal), no chest pain, no other events. Review of Systems Constitutional: Reports: see HPI. Objective Last 24 Hrs of Vital Signs/I&O Vital Signs Date Time Temp Pulse Resp B/P B/P Pulse O2 O2 Flow FiO2 Mean Ox Delivery Rate 04/27 0555 97.6 77 20 124/58 91 03/ 0000 Nasal 2.0L Cannula 04/26 2218 97.3 82 20 124/58 98 Nasal 2.0L Cannula 04/26 1508 98.2 71 18 130/62 94 Nasal 1.5L Cannula 04/26 1040 83 198/80 04/26 1040 93 198/80 Intake & Output 04/27 1600 04/27 0800 03/ 0000 Intake Total 200 430 Output Total 600 1050 400 Balance -600 -850 30 Intake, Oral 200 430 Number 1 Bowel Movements Output, Urine 600 1050 400 Patient 165 lb Weight Physical Exam General Appearance: Alert, Oriented X3, Cooperative, No Acute Distress Skin: Bilateral LE in dressing Grossly no change compared to previous days Skin Temp/Moisture Exam: Warm/Dry Sepsis Skin Exam (color): Normal for Ethnicity HEENT: Atraumatic, EOMI, Mucous Membr. moist/pink Cardiovascular: Normal S1, Normal S2 Lungs: Normal Air Movement, IMproved crackles Abdomen: Soft, No Tenderness Extremities: No Edema Current Medications: Current Medications Sig/Coral Start time Last Medication Dose Route Stop Time Status Admin Acetaminophen 500 MG TID 04/03 1156 AC 04/26 PO 2145 Albuterol Sulfate 3 ML Q4P PRN 04/15 0800 AC 04/24 INH 1039 Amlodipine Besylate 5 MG DAILY 04/03 1200 AC 04/26 PO 1040 Aspirin 81 MG DAILY 04/04 1000 AC 04/26 PO 1038 Docusate Sodium 100 MG DAILY NEEDED PRN 04/26 1100 AC 04/26 PO 1204 Fluticasone 2 SPRAY DAILY 04/03 1155 AC 04/26 Propionate THOMAS 1044 Furosemide 40 MG 7:30 AM, & 4:30 PM 04/25 0730 AC 04/27 IV 0802 Heparin Sodium 5,000 UNIT Q8 04/15 2200 AC 04/27 (Porcine) SC 0454 Insulin Aspart 0 TIDAC/HS 04/17 1700 AC 04/27 SC 0802 Insulin Detemir 9 UNITS BID 04/26 2200 [facility] Insulin Detemir 9 UNITS BID 04/26 1100 AC 04/26 SC 2145 Insulin Detemir 11 UNITS BID 04/22 1000 DC 04/25 SC 2109 Metoprolol Succinate 25 MG DAILY 04/03 1714 AC 04/26 PO 1040 Omeprazole 40 MG DAILY AC 04/11 0700 AC 04/27 PO 0454 Polyethylene Glycol 17 GM DAILY 04/21 0830 AC 04/26 PO 1038 Povidone Iodine 1 MEHRAN DAILY 04/13 1000 AC 04/26 TOP 1613 Pregabalin 50 MG TID 04/03 1155 AC 04/26 PO 2145 Senna 187 MG AT BEDTIME 04/25 2200 AC 04/26 PO 2145 Last 24 Hrs of Lab/Fransisco Results Last 24 Hrs of Labs/Mics: Laboratory Tests 04/27/17 0720: Anion Gap 8, Estimated GFR > 60, BUN/Creatinine Ratio 25.0, [id number]-[id number] Pept 4830 H, CBC w Diff NO MAN DIFF REQ, RBC 2.93 L, MCV 91.0, MCH 30.2, MCHC 33.2, RDW 15.4 H, MPV 8.2, Gran % 63.0, Lymphocytes % 21.5, Monocytes % 6.5, Eosinophils % 7.9 H, Basophils % 1.1, Absolute Granulocytes 4.0, Absolute Lymphocytes 1.4, Absolute Monocytes 0.4, Absolute Eosinophils 0.5, Absolute Basophils 0.1 Assessment/Plan Assessment: Mr Liu is a 71-year-old gentleman with a past medical history of type I diabetes on insulin pump (complicated by neuropathy, retinopathy and nephropathy ), complete heart block status post pacemaker, PVD previous admission to [facility] 2 weeks prior to admission for 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 He was initially admitted on the telemetry service and then subseuquently transferred to the [facility] due to hypoxia and tachycardia. After admission to [facility] patient transferred to after disscussions of comfort measures. Patient presented with siginficant improvement in mental condition while in floor and accordingly the disscusion of performing surgery was reconsidered. Acute on chronic hypoxemic respiratory failure This was considered multifactorial, including CHF, acute lung injury possibly bilateral aspiration pneumonitis. Patient also received broad spectrum antibiotics and was currently off antibiotics per ID. CXR 04/15/17: worsening of consolidation CXR: 04/17/17: mild improvement -Currently on NC - patient still DNI/DNR confirmed with family - hold off antibiotics for new consolidation (aspiration vs HCAP), follow ID pulm - received extra dose Lasix, currently BID IV - daily CXR, PO lasix with improvement - continue monitor Significant Peripharel Vascular Disease Complicated with osteomyelitis and gangrene of foot s/p MRSA OM; Right foot gangrene involving second and third toe. This morning, the patient may be considering amputation. His primary care physician Dr. Adame suggested that he needed a BKA instead of the TMA for a better prognostic outcome however due to anesthesia consideration and patient respiratory condition, TMA was performed. - patient s/p TMA - Pysch and ID on board - Patient does not have capacity to make medical desicion, will evaluate daily - will follow cutlure results from surgery (it apeared that there may not be good specimen) - Continue vanc per ID - Consider PICC line placement - vanc thr level - ceftaz discontinued yesterday - follow culture - angiography for next thursday Type II ND Over the course of the admission, Troponin peaked at 6.64 which was thought be likely due to type 2 ND. No EKG changes s/o ND. Component of volume overload, PRN diuresis while monitoring the serum creatinine closely. Echocardiogram: Left ventricular cavity size at the upper limits of normal. Mild to moderate concentric left ventricular hypertrophy. The inferior and posterior calderon are akinetic. The septum and apex contracts fairly well. Estimated ejection fraction is 35-40%. Catheter/pacemaker wire in the right ventricular cavity. Catheter/pacemaker wire in the right atrial appendage. Mild left atrial dilatation. Moderate thickening/calcification of the mitral valve leaflets. Moderate mitral annular calcification. Mild mitral regurgitation. Focal thickening of the aortic valve cusps. No aortic stenosis. Right ventricular systolic pressure estimated to be elevated at 55- 60 mmHg. Moderate to severe pulmonary hypertension. Left pleural effusion. Dilated IVC. Dr Avery, laboratory administrative director on board, Will monitor Cr, and further dosing changes if warranted. - continue diuresis per cardiology - Follow CXR to change lasix to PO PARRIS on CKD Could be related to DM, he also had recent angiogram that could precipitate PARRIS. Appears to be improving. Sr Cr 1.8--> ~1. Will continue to monitor. - continue to monitor Cr Type 1 Diabetes Complicated with diabetic nephropathy, neuropathy, peripheral vascular disease and retinopathy. Endocrinology on board, appreciate recomendations. - updated insuline dose daily per Endo note Skin: Unstageable pressure ulcer noted on right upper buttocks which was present on admission. Continue wound care recommendations. DNR/DNI Con carb diet 1, ground and thin Problem List: 1. Acute and chronic respiratory failure with hypoxia 2. Osteomyelitis Pain Ratin Pain Location: None Pain Goal: Pain 4 or less Pain Plan: Continue current plan Tomorrow's Labs & Rationales: Jeff Iraheta 04/27/17 1113: Attending MD Review Statement Attending Statement Attending MD Statement: examined this patient, discuss w/resident/PA/INDUSTRIAL SWEEPER CLEANER, agreed w/resident/PA/INDUSTRIAL SWEEPER CLEANER, discussed with family, reviewed EMR data (avail), discussed with nursing, discussed with case mgmt, reviewed images, amended to note Attending Assessment/Plan: Patient seen/examiend bedside. Weekend events noted, course uneventful. Continue with diuretics. Monitor creatinine. Patient is toelrating PO, Blood sugar is better controlled. Endo f/u. Patient had podaitry f/u for wound care which suggested not healing as it should. Abx as per ID. f/u cultures growing many bacteria. f/u final culture/ sensitivity. Skin precautions, aspiration precautions. wound care consulted. Vascular surgery f/u along with podiatry f/u recommends major amputation. Plan for angiogram as per vascular surgery tomorrow. NPo past MN. Patient is moderate to high risk for his BKA and can be taken for surgery if needed. Cont current care...
--- NOTE | 2017-04-27 08:05 | PN- Diabetes ---
Assessment/Plan Diabetes Assessment: 70 y/o male, Hx of DM type 1 diagnosed when he was 14 years old. He was on an insulin pump with basal rate running at 0.9 units per hour in the past. His diabetes was complicated by neuropathy, retinopathy, nephropathy. Patient presented to the ED after sustaining an unwitnessed fall. He was admitted for positive troponin with peak troponin of 6.64, ongoing right foot infection and gangrene of 2nd toe and 3rd toe. Right foot TMA was done on 2017. Levemir was decreased to 9 units twice a day. He is on Novolog coverage before meals and Novolog coverage at bedtime. His FSGs were 410, 305, 244, 299, 178, 112 and 113 Plan: continue the current insulin regimen for now; monitor FSGs. will follow. Subjective Subjective: His po intake has been good. Objective Last 24 Hrs of Vital Signs/I&O Vital Signs Date Time Temp Pulse Resp B/P B/P Pulse O2 O2 Flow FiO2 Mean Ox Delivery Rate 04/27 0555 97.6 77 20 124/58 91 04/27 0000 Nasal 2.0L Cannula 04/26 2218 97.3 82 20 124/58 98 Nasal 2.0L Cannula 04/26 1508 98.2 71 18 130/62 94 Nasal 1.5L Cannula 04/26 1040 83 198/80 04/26 1040 93 198/80 Intake & Output 04/27 1600 04/27 0800 03/ 0000 Intake Total 430 Output Total 1050 400 Balance -1050 30 Intake, Oral 430 Output, Urine 1050 400 Patient 165 lb Weight Findings Pertinent Lab/Fransisco Results: Laboratory Tests 04/27 04/26 0720 0833 Chemistry Sodium (137 - 145 mmol/L) Pending 138 Potassium (3.5 - 5.1 mmol/L) Pending 4.1 Chloride (98 - 107 mmol/L) Pending 94 L Carbon Dioxide (22 - 30 mmol/L) Pending 35 H Anion Gap (5 - 16) Pending 9 BUN (9 - 20 mg/dL) Pending 29 H Creatinine (0.7 - 1.2 mg/dL) Pending 1.3 H Estimated GFR (>60 ml/min) 55 L BUN/Creatinine Ratio (7 - 25 %) Pending 22.3 Hematology CBC w Diff Pending NO MAN DIFF REQ WBC (4.8 - 10.8 /CUMM) Pending 6.9 RBC (4.70 - 6.10 /CUMM) Pending 2.54 L Hgb (14.0 - 18.0 G/DL) Pending 7.6 L Hct (42 - 52 %) Pending 23.1 L MCV (80.0 - 94.0 FL) Pending 91.1 MCH (27.0 - 31.0 PG) Pending 29.9 MCHC (33.0 - 37.0 G/DL) Pending 32.9 L RDW (11.5 - 14.5 %) Pending 15.2 H Plt Count (130 - 400 /CUMM) Pending 553 H MPV (7.4 - 10.4 FL) Pending 8.1 Gran % (42.2 - 75.2 %) 63.4 Lymphocytes % (20.5 - 51.1 %) 21.7 Monocytes % (1.7 - 9.3 %) 7.4 Eosinophils % (0 - 5 %) 6.3 H Basophils % (0.0 - 2.0 %) 1.2 Absolute Granulocytes (1.4 - 6.5 /CUMM) 4.4 Absolute Lymphocytes (1.2 - 3.4 /CUMM) 1.5 Absolute Monocytes (0.10 - 0.60 /CUMM) 0.5 Absolute Eosinophils (0.0 - 0.7 /CUMM) 0.4 Absolute Basophils (0.0 - 0.2 /CUMM) 0.1
[2017-04-27 08:10] LABS: ABSOLUTE BASOPHIL COUNT 0.1 /CUMM (0.0-0.2); ABSOLUTE EOSINOPHIL COUNT 0.5 /CUMM (0.0-0.7); ABSOLUTE LYMPH COUNT 1.4 /CUMM (1.2-3.4); ABSOLUTE MONOCYTE COUNT 0.4 /CUMM (0.10-0.60); BASOPHIL % 1.1 % (0.0-2.0); EOSINOPHIL % 7.9 % (0-5); HEMATOCRIT 26.6 % (42-52); MEAN CORPUSCULAR HGB 30.2 PG (27.0-31.0); MEAN CORPUSCULAR HGB CONC 33.2 G/DL (33.0-37.0); MEAN PLATELET VOLUME 8.2 FL (7.4-10.4); PLATELET COUNT 615 /CUMM (130-400); RBC DISTRIBUTION WIDTH 15.4 % (11.5-14.5); RED BLOOD CELL CT 2.93 /CUMM (4.70-6.10); WHITE BLOOD CELL COUNT 6.4 /CUMM (4.8-10.8)
[2017-04-27 11:20] VITALS: BP 156/90
--- NOTE | 2017-04-27 13:40 | RADIOLOGY REPORT ---
EXAMINATION: XR PORTABLE CHEST CLINICAL INFORMATION: Follow-up for fluid overload. Progressing clinically. COMPARISON: Several prior chest x-rays, most recent of which is dated 04/25/2017. TECHNIQUE: Portable AP semierect view of the chest was obtained. FINDINGS: Right atrial and right ventricular pacer leads again noted, unchanged. The cardiomediastinal silhouette is borderline enlarged. There is persistent mild perihilar opacity noted bilaterally, with some improvement in aeration in the lung bases when compared to prior exam. There may be a trace associated left-sided pleural effusion with blunting of the CP angle. No evolving consolidation is seen. No pneumothorax is noted. Degenerative changes are seen in the shoulder joints and AC joints. IMPRESSION: Mild improvement in pulmonary edema.
--- NOTE | 2017-04-27 14:43 | PN- Infect Dx ---
Subjective Subjective: Afebrile without complaints. Objective Last 24 Hrs of Vital Signs/I&O Vital Signs Date Time Temp Pulse Resp B/P B/P Pulse O2 O2 Flow FiO2 Mean Ox Delivery Rate 04/27 1120 156/90 04/27 1012 68 190/110 04/27 1011 68 190/110 04/27 0555 97.6 77 20 124/58 91 03/05 0000 Nasal 2.0L Cannula 04/26 2218 97.3 82 20 124/58 98 Nasal 2.0L Cannula 04/26 1508 98.2 71 18 130/62 94 Nasal 1.5L Cannula Intake & Output 04/27 1600 04/27 0800 03 0000 Intake Total 200 430 Output Total 1125 1050 400 Balance -1125 -850 30 Intake, Oral 200 430 Number 1 Bowel Movements Output, Urine 1125 1050 400 Patient 165 lb Weight Physical Exam Other Physical Findings: He appears comfortable in no acute distress Lungs decreased breath sounds both bases Heart regular rhythm with no murmur Extremities right foot necrotic edges; left heel necrotic, with necrosis also noted over the dorsum of the left fourth and fifth toes Results Last 24 Hours of Lab Results: Laboratory Tests 04/27 0720 Chemistry Sodium (137 - 145 mmol/L) 138 Potassium (3.5 - 5.1 mmol/L) 4.3 Chloride (98 - 107 mmol/L) 94 L Carbon Dioxide (22 - 30 mmol/L) 36 H Anion Gap (5 - 16) 8 BUN (9 - 20 mg/dL) 30 H Creatinine (0.7 - 1.2 mg/dL) 1.2 Estimated GFR (>60 ml/min) > 60 BUN/Creatinine Ratio (7 - 25 %) 25.0 [id number] Pept (<125 pg/mL) 4830 H Hematology CBC w Diff NO MAN DIFF REQ WBC (4.8 - 10.8 /CUMM) 6.4 RBC (4.70 - 6.10 /CUMM) 2.93 L Hgb (14.0 - 18.0 G/DL) 8.8 L Hct (42 - 52 %) 26.6 L MCV (80.0 - 94.0 FL) 91.0 MCH (27.0 - 31.0 PG) 30.2 MCHC (33.0 - 37.0 G/DL) 33.2 RDW (11.5 - 14.5 %) 15.4 H Plt Count (130 - 400 /CUMM) 615 H MPV (7.4 - 10.4 FL) 8.2 Gran % (42.2 - 75.2 %) 63.0 Lymphocytes % (20.5 - 51.1 %) 21.5 Monocytes % (1.7 - 9.3 %) 6.5 Eosinophils % (0 - 5 %) 7.9 H Basophils % (0.0 - 2.0 %) 1.1 Absolute Granulocytes (1.4 - 6.5 /CUMM) 4.0 Absolute Lymphocytes (1.2 - 3.4 /CUMM) 1.4 Absolute Monocytes (0.10 - 0.60 /CUMM) 0.4 Absolute Eosinophils (0.0 - 0.7 /CUMM) 0.5 Absolute Basophils (0.0 - 0.2 /CUMM) 0.1 Last 24 Hours of Fransisco Results: No new cultures Recent Imaging Studies: Chest x-ray April 27 mild improvement in pulmonary edema Assessment/Plan ID Impression: Stable, with temperatures and white blood cell count remaining normal, on Vancomycin now Day 12 of treatment for a residual soft tissue infection following a transmetatarsal amputation, with evidence of necrosis, which will require further amputation. He is scheduled for a right leg angiogram in the a.m., with the decision regarding further surgery, for example BKA, based on these results. He has evidence of ischemic changes to the left foot as well and , if aggressive treatment is to be continued, this will also require further evaluation. His Vancomycin levels have been high and, at this point, his antibiotics can be discontinued as their role is unclear given his severe ischemia. Suggestion: 1. Await right leg angiogram in the a.m. 2. Further evaluation of his left foot ischemic changes per Vascular Surgery and Podiatry 3. Discontinue Vancomycin and follow off antibiotics
[2017-04-27 15:31] VITALS: BP 154/92
[2017-04-27 21:58] VITALS: BP 124/60
[2017-04-28 06:00] VITALS: BP 110/62
[2017-04-28 06:51] VITALS: BP 138/52
--- NOTE | 2017-04-28 06:55 | Event Note ---
Event Note Event Note: S: Rapid response called at 6:30 am for a syncopal episode, the nurse was trying to ambulate the patient to the bathroom after which he felt lightheaded and passed out for few seconds. B: He is a 71 yo patient with PMH type I diabetes, complete heart block status post pacemaker, PVD, He was initially admitted on the telemetry service for syncopal episode and then subseuquently transferred to the [facility] for acute hypoxic respiratory failure and tachycardia. He was transferrred to after there was a disscussions of comfort measures however after significant improvement in his mental status he was kept DNR/DNI with active management. He was supposed to get an angiogram today to assess LE circulation hence he was kept NPO on D51/5 NS. A: On arrival patient was awake, alert, feels lightheaded, Vitals: P: 74, BP: 138/52, Tmax: 97.5, BS: 93 No fall was reported and no trauma, he pulse is regular with S1,S2, no added sound, chest clear, no motor or sensory deficit, CNI-XII intact. #Syncopal episode most likely vasovagal (Neurocardiogenic) VS orthostatic especially that he was NPO, other possibilites should be consider but is less likely given pacemaker. Plan: * Rate of IV fluid increase to 100ml /hr, please assess the need to keep it at this rate * STAT EKG, Toponin, Mg, Po4 * Transfer to telemetry to r/o other cause of syncope * discuss the need to do angiogram today Attending and the son sudha was updated about the situation
--- NOTE | 2017-04-28 07:49 | PN- Housestaff ---
Rosa Gay 04/28/17 0748: Subjective Follow-up For: MRSA osteomyelitis Acute hypoxic respiratory failure Severe peripheral vascular disease Right leg gangrene Type 1 diabetes Renal insufficiency- resolved Tele-Events Since Last Visit: Paced rhythm heart rate 60s Subjective: Seen and examined patient. Son at bedside .Offers no complaints. Overnight events noted. Does not remember much of what happened early this morning. However he does recall that he was attempting to ambulate. Denies any prodromal events prior to the episode however he feels that usually in the mornings he does usually feel weak and dizzy. On interview denies chest pain, shortness of breath, fever, chills. Review of Systems Constitutional: Denies: chills, diaphoresis, fever, malaise, weakness, unexplained weight loss. Cardiovascular: Denies: chest pain, edema, orthopena, palpitations, peripheral edema, syncope. Respiratory: Denies: cough, hemoptysis, orthopnea, short of breath, sputum production, stridor, wheezing. Objective Last 24 Hrs of Vital Signs/I&O Vital Signs Date Time Temp Pulse Resp B/P B/P Pulse O2 O2 Flow FiO2 Mean Ox Delivery Rate 04/28 1329 140/60 03/06 1004 69 130/70 / 0800 97.8 67 18 130/62 97 Nasal 2.0L Cannula 04/28 0800 96 Nasal 2.0L Cannula / 0651 97.5 74 20 138/52 96 Nasal 2.0L Cannula / 0600 97.4 61 20 110/62 100 03/06 0000 Nasal 2.0L Cannula / 2158 98.0 68 20 124/60 97 Nasal 2.0L Cannula /05 1913 4.0 / 1600 95 Nasal 2.0L Cannula /05 1531 98.8 75 18 154/92 94 Intake & Output / 1600 03/06 0800 03/06 0000 Intake Total 800 690 Output Total 475 900 550 Balance 325 -210 -550 Intake, IV 350 450 Intake, Oral 450 240 Number 1 1 1 Bowel Movements Output, Urine 475 900 550 Patient 156 lb Weight Weight Bed scale Measurement Method Physical Exam General Appearance: Alert, Oriented X3, Cooperative, No Acute Distress HEENT: PERRLA, DRY MUCOUS MEMBRANES Cardiovascular: Regular Rate Lungs: Normal Air Movement Abdomen: Soft, No Tenderness Extremities: DRESSINGS ON B/L LOWER EXTREMITIES Assessment/Plan Assessment: 71 -year-old gentleman with PMH type I diabetes (complicated by neuropathy, retinopathy and nephropathy), complete heart block status post pacemaker placement, severe PVD, 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 Was transferred to [facility] where he underwent TMA right foot by on 04/14/17. Superficial culture 04/20 : VRE, Ecoli, MRSA (sens to Cotrim), suspecting contamination except MRSA Continued on Vanc later Vanc level on 04/25: 22 ug/ml, vanc on hold since Monday 04/24 Next vanc level: 04/28 Plan was for Angiography/angioplasty on 04/[address] Nguyen, however early this morning due to his syncopal episode surgery is on hold. Acute on chronic hypoxemic respiratory failure multifactorial, including CHF, acute lung injury possibly bilateral aspiration pneumonitis. Patient also received broad spectrum antibiotics and was currently off antibiotics per ID. CXR 04/15/17: worsening of consolidation CXR: 04/17/17: mild improvement CXR: 04/27/17:Mild improvement in pulmonary edema. - saturating 96% on 2L NC -On lasix BID IV Peripheral Vascular Disease Complicated with osteomyelitis and gangrene of foot s/p MRSA OM; Right foot gangrene involving second and third toe. awaiting right angiography and R BKA - s/p TMA - ID on board appreciate recomendations, currenly following off antibiotics - Patient does not have capacity to make medical desicion, will evaluate daily Type II CO Troponin peaked at 6.64 which was thought be likely due to type 2 CO. No EKG changes s/o CO. Component of volume overload, PRN diuresis while monitoring the serum creatinine closely. Echocardiogram: Estimated ejection fraction is 35-40%. Right ventricular systolic pressure estimated to be elevated at 55- 60 mmHg. Moderate to severe pulmonary hypertension. Dilated IVC. Dr Avery, it architect on board PARRIS on CKD improved Sr Cr 1.8--> ~1. Will continue to monitor. Type 1 Diabetes Complicated with diabetic nephropathy, neuropathy, peripheral vascular disease and retinopathy. Endocrinology on board, appreciate recomendations. on levemir and ISS accuchecks Skin: Unstageable pressure ulcer noted on right upper buttocks which was present on admission. Continue wound care recommendations. DVT ppx sc heparin DNR/DNI Problem List: 1. PARRIS (acute kidney injury) 2. Acute and chronic respiratory failure with hypoxia 3. Syncope 4. Elevated troponin Pain Ratin Pain Location: na Pain Goal: Pain 4 or less Pain Plan: current regimen Tomorrow's Labs & Rationales: Jeff Schneider 04/28/17 1125: Attending MD Review Statement Attending Statement Attending MD Statement: examined this patient, discuss w/resident/PA/LABORER POLE CREW, agreed w/resident/PA/LABORER POLE CREW, discussed with family, reviewed EMR data (avail), discussed with nursing, discussed with case mgmt, reviewed images, amended to note Attending Assessment/Plan: Patient transferrred to telemetry for syncope likely vasovagal. Not hypoglycemic. Patient is toelrating PO, Blood sugar is better controlled. Endo f/u. Patient had podaitry f/u for wound care which suggested not healing as it should. Abx as per ID. f/u cultures growing many bacteria. f/u final culture/ sensitivity. Skin precautions, aspiration precautions. wound care consulted. Vascular surgery f/u along with podiatry f/u recommends major amputation. Plan for angiogram as per vascular surgery today. Awaiting angiogram. Patient is moderate to high risk for his BKA and can be taken for surgery if needed. Pulmonary following. Cont current care...
[2017-04-28 08:00] VITALS: BP 130/62
--- NOTE | 2017-04-28 08:39 | PN- Diabetes ---
Assessment/Plan Diabetes Assessment: 70 y/o male, Hx of DM type 1 diagnosed when he was 14 years old. He was on an insulin pump with basal rate running at 0.9 units per hour in the past. His diabetes was complicated by neuropathy, retinopathy, nephropathy. Patient presented to the ED after sustaining an unwitnessed fall. He was admitted for positive troponin with peak troponin of 6.64, ongoing right foot infection and gangrene of 2nd toe and 3rd toe. Right foot TMA was done on 2017. Levemir was decreased to 9 units twice a day. He is on Novolog coverage before meals and Novolog coverage at bedtime. His FSGs were 210, 175, 171, 200, 135 and 92. He was scheduled to have LE angiogram done. However, he had an episode of syncope this morning and was transfered to ICU. Currently he is NPO and was put on D51/2 NS at 75 ml/hour. Plan: when he is NPO ---decrease Levemir to 7 units twice a day; ---stop RISS every 6 hours; ---start Novolog coverage every 4 hours; detail see the order. if he is going to eat regular diabetic meals ---Levemir 9 units twice a day ---previous Novolog coverage before meals and Novolog coverage at bedtime. Monitor FSGs and electrolytes; will follow Inpatient Diabetes Orders Every 4 Hours: Bolus Insulin: Novolog < 80 mg/dl: no coverage 80-100 mg/dl: no coverage 101-120 mg/dl: no coverage 121-150 mg/dl: no coverage 151-200 mg/dl: 2 units 201-250 mg/dl: 4 units 251-300 mg/dl: 6 units 301-350 mg/dl: 8 units 351-400 mg/dl: 9 units > 400 mg/dl: 10 units Subjective Subjective: He feels okay Objective Last 24 Hrs of Vital Signs/I&O Vital Signs Date Time Temp Pulse Resp B/P B/P Pulse O2 O2 Flow FiO2 Mean Ox Delivery Rate 04/28 0800 97.8 67 18 130/62 97 Nasal 2.0L Cannula 04/28 0651 97.5 74 20 138/52 96 Nasal 2.0L Cannula 04/28 0600 97.4 61 20 110/62 100 / 0000 Nasal 2.0L Cannula 03/05 2158 98.0 68 20 124/60 97 Nasal 2.0L Cannula 04/27 1913 4.0 04/27 1600 95 Nasal 2.0L Cannula 04/27 1531 98.8 75 18 154/92 94 04/27 1120 156/90 04/27 1012 68 190/110 04/27 1011 68 190/110 Intake & Output 04/28 1600 04/28 0800 04/28 0000 Intake Total 690 Output Total 900 550 Balance -210 -550 Intake, IV 450 Intake, Oral 240 Number 1 1 Bowel Movements Output, Urine 900 550 Patient 156 lb Weight Weight Bed scale Measurement Method Findings Pertinent Lab/Fransisco Results: Laboratory Tests 04/28 04/28 0710 0656 Chemistry Sodium (137 - 145 mmol/L) 137 Potassium (3.5 - 5.1 mmol/L) 4.4 Chloride (98 - 107 mmol/L) 95 L Carbon Dioxide (22 - 30 mmol/L) 34 H Anion Gap (5 - 16) 7 BUN (9 - 20 mg/dL) 30 H Creatinine (0.7 - 1.2 mg/dL) 1.2 Estimated GFR (>60 ml/min) > 60 BUN/Creatinine Ratio (7 - 25 %) 25.0 Phosphorus (2.5 - 4.5 mg/dL) 4.4 Cancelled Magnesium (1.6 - 2.3 mg/dL) 2.0 Cancelled Troponin I (<0.11 ng/ml) Pending Cancelled Toxicology Vancomycin Trough (10.0 - 20.0 ug/mL) 6.2 L
--- NOTE | 2017-04-28 08:55 | PN- Pulmonary ---
Subjective HPI/Critical Care Issues: Transferred here for prob syncopal episode Otherwise stable On 2 litres Now npo on ivf Pending angio Objective Current Medications: Current Medications Sig/Coral Start time Last Medication Dose Route Stop Time Status Admin Acetaminophen 500 MG TID 04/03 1156 AC 04/27 PO 2104 Albuterol Sulfate 3 ML Q4P PRN 04/15 0800 AC 04/24 INH 1039 Amlodipine Besylate 5 MG DAILY 04/03 1200 AC 04/27 PO 1011 Aspirin 81 MG DAILY 04/04 1000 AC 04/27 PO 1008 Dextrose/Sodium 1,000 ML Q13H 04/27 2355 AC 04/28 Chloride IV 0024 Docusate Sodium 100 MG DAILY NEEDED PRN 04/26 1100 AC 04/26 PO 1204 Fluticasone 2 SPRAY DAILY 04/03 1155 AC 04/27 Propionate THOMAS 1012 Furosemide 40 MG 7:30 AM, & 4:30 PM 04/25 0730 AC 04/27 IV 1914 Heparin Sodium 5,000 UNIT Q8 04/15 2200 AC 04/27 (Porcine) SC 2103 Insulin Aspart 0 TIDAC/HS 04/17 1700 DC 04/27 SC 04/27 2355 1913 Insulin Detemir 9 UNITS BID 04/26 1100 DC / SC 04/27 2355 2103 Insulin Human Regular 0 Q6 04/28 0000 AC 04/28 SC 0607 Insulin Human Regular 0 Q6 04/27 1200 DC SC Metoprolol Succinate 25 MG DAILY 04/03 1714 AC 04/27 PO 1012 Omeprazole 40 MG DAILY AC 04/11 0700 AC 04/27 PO 0454 Polyethylene Glycol 17 GM DAILY 04/21 0830 AC 04/26 PO 1038 Povidone Iodine 1 MEHRAN DAILY 04/13 1000 AC 04/27 TOP 1337 Pregabalin 50 MG TID 04/03 1155 AC 04/27 PO 2104 Senna 187 MG AT BEDTIME 04/25 2200 AC 04/27 PO 2104 Vital Signs & I&O Last 24 Hrs of Vitals and I&O: Vital Signs Date Time Temp Pulse Resp B/P B/P Pulse O2 O2 Flow FiO2 Mean Ox Delivery Rate 04/28 08 97.8 67 18 130/62 97 Nasal 2.0L Cannula 04/28 650 97.5 74 20 138/52 96 Nasal 2.0L Cannula 04/28 0600 97.4 61 20 110/62 100 03/ 0000 Nasal 2.0L Cannula 04/27 2158 98.0 68 20 124/60 97 Nasal 2.0L Cannula 04/27 1913 4.0 04/27 1600 95 Nasal 2.0L Cannula 04/27 1531 98.8 75 18 154/92 94 03 1120 156/90 04/27 1012 68 190/110 04/27 1011 68 190/110 Intake & Output 04/28 1600 04/28 0800 04/28 0000 Intake Total 690 Output Total 900 550 Balance -210 -550 Intake, IV 450 Intake, Oral 240 Number 1 1 Bowel Movements Output, Urine 900 550 Patient 156 lb Weight Weight Bed scale Measurement Method Laboratory Tests 04/28 04/28 04/27 0710 0656 0720 Chemistry Sodium (137 - 145 mmol/L) 137 138 Potassium (3.5 - 5.1 mmol/L) 4.4 4.3 Chloride (98 - 107 mmol/L) 95 L 94 L Carbon Dioxide (22 - 30 mmol/L) 34 H 36 H Anion Gap (5 - 16) 7 8 BUN (9 - 20 mg/dL) 30 H 30 H Creatinine (0.7 - 1.2 mg/dL) 1.2 1.2 Estimated GFR (>60 ml/min) > 60 > 60 BUN/Creatinine Ratio (7 - 25 %) 25.0 25.0 Phosphorus (2.5 - 4.5 mg/dL) 4.4 Cancelled Magnesium (1.6 - 2.3 mg/dL) 2.0 Cancelled Troponin I (<0.11 ng/ml) Pending Cancelled Dlw-U-Tutgheckssm Pept (<125 pg/mL) 4830 H Hematology CBC w Diff NO MAN DIFF REQ WBC (4.8 - 10.8 /CUMM) 6.4 RBC (4.70 - 6.10 /CUMM) 2.93 L Hgb (14.0 - 18.0 G/DL) 8.8 L Hct (42 - 52 %) 26.6 L MCV (80.0 - 94.0 FL) 91.0 MCH (27.0 - 31.0 PG) 30.2 MCHC (33.0 - 37.0 G/DL) 33.2 RDW (11.5 - 14.5 %) 15.4 H Plt Count (130 - 400 /CUMM) 615 H MPV (7.4 - 10.4 FL) 8.2 Gran % (42.2 - 75.2 %) 63.0 Lymphocytes % (20.5 - 51.1 %) 21.5 Monocytes % (1.7 - 9.3 %) 6.5 Eosinophils % (0 - 5 %) 7.9 H Basophils % (0.0 - 2.0 %) 1.1 Absolute Granulocytes (1.4 - 6.5 /CUMM) 4.0 Absolute Lymphocytes (1.2 - 3.4 /CUMM) 1.4 Absolute Monocytes (0.10 - 0.60 /CUMM) 0.4 Absolute Eosinophils (0.0 - 0.7 /CUMM) 0.5 Absolute Basophils (0.0 - 0.2 /CUMM) 0.1 Toxicology Vancomycin Trough (10.0 - 20.0 ug/mL) 6.2 L Impression/Plan Impression/Plan Impression/Plan: Lungs rhonchi and scattered crackles on the right, Heart regular rhythm with no murmur Abdomen is soft, nontender with positive bowel sounds Extremities necrotic right second and third toes; left foot petechial/ purpuric rash IMPRESSION This is a gentleman with diabetes type 1 with multiple complications including neuropathy, significant peripheral vascular disease, previous pacemaker far heart block, 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 Infectious disease, podiatry and vascular surgery is following pt s/p TMA rt foot, now being considered for angio and amputuation * Type 1 diabetes with multiple organ dysfunction including diabetic nephropathy , neuropathy, peripheral vascular disease and retinopathy. * CKD with renal insufficiency since admission most likely related to combination of factors including his underlying diabetic kidney disease. * Reduced ejection fraction with EF of 35-40% with abnormal diastolic dysfunction which appears to be chronic * Severe peripheral vascular disease with dry gangrene of the left foot s/p tma Recommendation COnt oxygen goal sat 92 IVF till he is more awake Watch renal function Cont to monitor glucose Keep his head of bed elevated Will follow prn Keep hob up Pt is cleared pulm rene to go for angio and surg as his resp status has improved ,graham with higher post op risk for NIV or vent use due to his above conditons
--- NOTE | 2017-04-28 15:50 | PN- Vascular Surgery ---
Subjective Subjective: Rapid response this morning for a syncopal episode that lasted for a few seconds while the patient was was ambulating with nursing to the bathroom. Reports weakness and lightheadedness currently, has been on bedrest today. Workup preformed by medicine/icu concluded syncopal episode was vasovagal. Right lower extremity angio today was therefore cancelled. Objective Vital Signs and I&Os Vital Signs Date Time Temp Pulse Resp B/P B/P Pulse O2 O2 Flow FiO2 Mean Ox Delivery Rate 04/28 1329 140/60 03/ 1004 69 130/70 / 0800 97.8 67 18 130/62 97 Nasal 2.0L Cannula 04/28 0800 96 Nasal 2.0L Cannula 04/28 0651 97.5 74 20 138/52 96 Nasal 2.0L Cannula 04/28 0600 97.4 61 20 110/62 100 03/06 0000 Nasal 2.0L Cannula 04/27 2158 98.0 68 20 124/60 97 Nasal 2.0L Cannula 04/27 1913 4.0 / 1600 95 Nasal 2.0L Cannula Intake & Output 04/28 1600 / 0800 03/06 0000 03/05 1600 / 0800 03/05 0000 Intake Total 800 690 600 200 430 Output Total 475 704 367 9653 1050 400 Balance 325 -210 -550 -725 -850 30 Intake, IV 350 450 Intake, Oral 450 240 600 200 430 Number 1 1 1 1 Bowel Movements Output, Urine 475 292 042 2580 1050 400 Patient 156 lb 165 lb Weight Weight Bed scale Measurement Method Assessment/Plan Assessment/Plan 71 M with significant PVD who had a vasovagal syncopal episode this morning Surgery postponed to Thursday for right lower extremity angio if he remains medically stable. Please keep NPO after midnight on IVFs on 06/30/17. All other medical management per primary team. His son, Mitchell was contacted by Dr. Nguyen via phone.
[2017-04-28 16:00] VITALS: BP 132/60
[2017-04-28 19:24] VITALS: BP 118/52
[2017-04-28 22:00] VITALS: BP 134/60
[2017-04-29 07:18] VITALS: BP 148/64
--- NOTE | 2017-04-29 09:26 | PN- Diabetes ---
Assessment/Plan Diabetes Assessment: 70 y/o male, Hx of DM type 1 diagnosed when he was 14 years old. He was on an insulin pump with basal rate running at 0.9 units per hour in the past. His diabetes was complicated by neuropathy, retinopathy, nephropathy. Patient presented to the ED after sustaining an unwitnessed fall. He was admitted for positive troponin with peak troponin of 6.64, ongoing right foot infection and gangrene of 2nd toe and 3rd toe. Right foot TMA was done on 2017. On 04/28/2017, he had an episode of syncope in the paste mixer liquid and right LE angiogram was cancelled. currently he is on levemir 9 units twice a day, Novolog coverage before meals and Novolog coverage at bedtime. His FSGs were 262, 232, 161 and 161. Plan: continue the current insulin regimen for now; monitor FSGs. will follow. Subjective Subjective: He feels okay. Objective Last 24 Hrs of Vital Signs/I&O Vital Signs Date Time Temp Pulse Resp B/P B/P Pulse O2 O2 Flow FiO2 Mean Ox Delivery Rate 04/30 831 79 148/64 04/29 0832 79 148/64 04/29 0718 98.7 79 22 148/64 98 Nasal Cannula 04/28 2235 Nasal 2.0L Cannula 04/28 2200 97.3 73 28 134/60 98 Nasal 2.0L Cannula 04/28 1924 98.2 70 23 118/52 99 Nasal 2.0L Cannula 04/28 1600 98.7 76 17 132/60 96 Nasal 2.0L Cannula 04/28 1600 96 Nasal 2.0L Cannula 04/28 1329 140/60 /06 1004 69 130/70 Intake & Output 04/29 1600 04/29 0800 04/29 0000 Intake Total 120 480 Output Total 850 200 Balance -730 280 Intake, Oral 120 480 Number 5 Bowel Movements Output, Urine 850 200 Patient 158 lb Weight Weight Bed scale Measurement Method Findings Pertinent Lab/Fransisco Results: Laboratory Tests 04/29 714 Chemistry Sodium (137 - 145 mmol/L) 138 Potassium (3.5 - 5.1 mmol/L) 4.4 Chloride (98 - 107 mmol/L) 98 Carbon Dioxide (22 - 30 mmol/L) 32 H Anion Gap (5 - 16) 8 BUN (9 - 20 mg/dL) 33 H Creatinine (0.7 - 1.2 mg/dL) 1.2 Estimated GFR (>60 ml/min) > 60 BUN/Creatinine Ratio (7 - 25 %) 27.5 H Magnesium (1.6 - 2.3 mg/dL) 2.0
--- NOTE | 2017-04-29 09:55 | PN- Housestaff ---
Rahel LOZANO,Jo 04/29/17 0955: Subjective Follow-up For: MRSA osteomyelitis Acute hypoxic respiratory failure Severe peripheral vascular disease Right leg gangrene Type 1 diabetes Renal insufficiency- resolved Tele-Events Since Last Visit: No acute events, heart rate 65s paced rhythm Subjective: Patient was seen and examined at bedside, afebrile and he currently denies any complaints, both lower extremity and clean dressing Review of Systems Constitutional: Reports: see HPI. Objective Last 24 Hrs of Vital Signs/I&O Vital Signs Date Time Temp Pulse Resp B/P B/P Pulse O2 O2 Flow FiO2 Mean Ox Delivery Rate 04/29 0832 79 148/64 04/29 0832 79 148/64 04/29 0718 98.7 79 22 148/64 98 Nasal Cannula 04/28 2235 Nasal 2.0L Cannula 04/28 2200 97.3 73 28 134/60 98 Nasal 2.0L Cannula 04/28 1924 98.2 70 23 118/52 99 Nasal 2.0L Cannula 04/28 1600 98.7 76 17 132/60 96 Nasal 2.0L Cannula 04/28 1600 96 Nasal 2.0L Cannula 04/28 1329 140/60 Intake & Output 04/29 1600 07 0800 03/ 0000 Intake Total 120 480 Output Total 850 200 Balance -730 280 Intake, Oral 120 480 Number 5 Bowel Movements Output, Urine 850 200 Patient 158 lb Weight Weight Bed scale Measurement Method Physical Exam General Appearance: Alert, Oriented X3, Cooperative, No Acute Distress HEENT: Atraumatic, PERRLA, EOMI, Mucous Membr. 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 Was transferred to [facility] where he underwent TMA right foot by on 04/14/17. Superficial culture 04/20 : VRE, Ecoli, MRSA (sens to Cotrim), suspecting contamination except MRSA Continued on Vanc later Vanc level on 04/25: 22 ug/ml, vanc on hold since Monday 04/24 Next vanc level: 04/28 Plan was for Angiography/angioplasty on 04/[address] Nguyen, however early this morning due to his syncopal episode surgery is on hold. Acute on chronic hypoxemic respiratory failure multifactorial, including CHF, acute lung injury possibly bilateral aspiration pneumonitis. Patient also received broad spectrum antibiotics and was currently off antibiotics per ID. - saturating 96% on 2L NC -Continue Lasix 40 mg BID IV Peripheral Vascular Disease Complicated with osteomyelitis and gangrene of foot s/p MRSA OM; Right foot gangrene involving second and third toe s/p TMA. Continue to follow off antibiotics awaiting right angiography and R BKA on Thursday - ID on board appreciate recomendations, currenly following off antibiotics - Patient does not have capacity to make medical desicion, will evaluate daily Type II NV Troponin peaked at 6.64 which was thought be likely due to type 2 NV. No EKG changes s/o NV. Component of volume overload, PRN diuresis while monitoring the serum creatinine closely. Echocardiogram: Estimated ejection fraction is 35-40%. Right ventricular systolic pressure estimated to be elevated at 55- 60 mmHg. Moderate to severe pulmonary hypertension. Dilated IVC. Dr Avery, internal audit senior manager on board PARRIS on CKD improved Sr Cr 1.2. Will continue to monitor. Type 1 Diabetes Complicated with diabetic nephropathy, neuropathy, peripheral vascular disease and retinopathy. History 229, 161, 161 Endocrinology on board, appreciate recomendations. on levemir and ISS accuchecks Skin: Unstageable pressure ulcer noted on right upper buttocks which was present on admission. Continue wound care recommendations. DVT ppx sc heparin DNR/DNI Problem List: 1. Acute and chronic respiratory failure with hypoxia 2. Peripheral vascular disease 3. Osteomyelitis 4. History of diabetes mellitus, type I Pain Ratin Pain Location: N/A Pain Goal: Remain pain free Pain Plan: PATHWAY Tomorrow's Labs & Rationales: CBC BEP DVT/Prophylaxis: mechanical, pharmacological Oren Covarrubias 04/29/17 1459: Attending MD Review Statement Attending Statement Attending MD Statement: examined this patient, discuss w/resident/PA/[employer] LOCKSTITCH, agreed w/resident/PA/[employer] MA[employer] LOCKSTITCH, reviewed EMR data (avail), discussed with case mgmt Attending Assessment/Plan: [facility]. Will get neuro and cardio to see him. Trop was negative. DC ALPS as pt has PVD. d/w pt the care plan. pt going for angio right lower extremity on Thursday.
--- NOTE | 2017-04-29 13:58 | PN- Cardiology ---
Subjective Subjective: the patient is resting comfortably in bed. His only symptom is some worsening of his shortness of breath. Objective Vital Signs and I&Os Vital Signs Date Time Temp Pulse Resp B/P B/P Pulse O2 O2 Flow FiO2 Mean Ox Delivery Rate 04/29 0832 79 148/64 04/29 0832 79 148/64 04/29 0718 98.7 79 22 148/64 98 Nasal Cannula 04/28 2235 Nasal 2.0L Cannula 04/28 2200 97.3 73 28 134/60 98 Nasal 2.0L Cannula 04/28 1924 98.2 70 23 118/52 99 Nasal 2.0L Cannula 04/28 1600 98.7 76 17 132/60 96 Nasal 2.0L Cannula 04/28 1600 96 Nasal 2.0L Cannula Intake & Output 04/29 1600 04/29 0804/29 0000 04/28 1600 04/28 0804/28 0000 Intake Total 120 480 800 690 Output Total 850 200 475 900 550 Balance -730 280 325 -210 -550 Intake, IV 350 450 Intake, Oral 120 480 450 240 Number 5 1 1 1 Bowel Movements Output, Urine 850 200 475 900 550 Patient 158 lb 156 lb Weight Weight Bed scale Bed scale Measurement Method Current Medications: Current Medications Sig/Coral Start time Last Medication Dose Route Stop Time Status Admin Acetaminophen 500 MG TID 04/03 1156 AC 04/29 PO 1336 Albuterol Sulfate 3 ML Q4P PRN 04/15 08 AC 04/24 INH 1039 Amlodipine Besylate 5 MG DAILY 04/03 1200 AC 04/29 PO 0832 Aspirin 81 MG DAILY 04/04 1000 AC 04/29 PO 0832 Docusate Sodium 100 MG DAILY NEEDED PRN 04/26 1100 AC 04/26 PO 1204 Fluticasone 2 SPRAY DAILY 04/03 1155 AC 04/29 Propionate THOMAS 0835 Furosemide 40 MG 7:30 AM, & 4:30 PM 04/25 0730 AC 04/29 IV 0831 Heparin Sodium 5,000 UNIT Q8 04/15 220 AC 04/29 (Porcine) SC 1336 Insulin Aspart 0 TIDAC 04/28 1200 AC 04/29 SC 1225 Insulin Detemir 9 UNITS BID 04/28 1000 AC 04/29 SC 0832 Metoprolol Succinate 25 MG DAILY 04/03 1714 AC 04/29 PO 0832 Omeprazole 40 MG DAILY AC 04/11 0700 AC 04/29 PO 0613 Polyethylene Glycol 17 GM DAILY 04/21 0830 AC 04/28 PO 1003 Povidone Iodine 1 MEHRAN DAILY 04/13 1000 AC 04/29 TOP 1337 Pregabalin 50 MG TID 04/03 1155 AC 04/29 PO 0834 Senna 187 MG AT BEDTIME 04/25 2200 AC 04/28 PO 2104 Results Last 48 Hrs of Labs/Mics: Laboratory Tests 04/29/17 0715: Anion Gap 8, Estimated GFR > 60, BUN/Creatinine Ratio 27.5 H, Magnesium 2.0 04/28/17 0710: Anion Gap 7, Estimated GFR > 60, BUN/Creatinine Ratio 25.0, Phosphorus 4.4, Magnesium 2.0, Troponin I 0.02, Vancomycin Trough 6.2 L 04/28/17 0656: Phosphorus Cancelled, Magnesium Cancelled, Troponin I Cancelled Assessment/Plan Assessment/Plan Assessment: 1. Acute hypoxic respiratory failure with acute on chronic HFrEF and slight worsening of dyspnea today 2. Severe PAD 3. Gangrene right LE 4. DM 5. Renal insufficiency. 6. Slightly worsening anemia 7. Elevated troponin Recommendations: - COntinue present regimen for now; continue diuresis with monitoring of intake, output, daily weights. -If the patient continues to complain of worsening dyspnea, check follow-up chest x-ray - Followup labs pending with close monitoring of H/H Continue telemetry? Yes
[2017-04-29 14:00] VITALS: BP 100/60
--- NOTE | 2017-04-29 14:13 | Cons- Neurology ---
General Information and HPI Consulting Request Date of Consult: 04/29/17 Requested By: Jeff Haas MD Reason for Consult: Syncope Source of Information: patient, old records Exam Limitations: clinical condition History of Present Illness: Consultation requested received this afternoon on this 71-year-old man who suffered a syncopal episode yesterday about 6:30 in the morning. about 6:30 in the morning. He was on his feet heading for the bathroom the event note reports he felt headed and passed out for a few seconds. He recalls the event differently saying he thinks he lost balance. No report of any seizure activity or focal neurologic deficit. 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 Allergies/Medications Allergies: Coded Allergies: NO KNOWN ALLERGIES (NONE 04/08/17) Home Med List: Acetaminophen (Tylenol Extra Strength) 500 MG TABLET 1 TAB PO TID right foot pain Amlodipine Besylate 10 MG TABLET 1 TAB PO DAILY high blood pressure Aspirin (Children's Aspirin) 81 MG TAB.CHEW 1 TAB PO DAILY HEART HEALTH ( Reported) Atorvastatin Calcium (Lipitor) 40 MG TABLET 1 TAB PO DAILY HLD Fluticasone Furoate (Flonase Sensimist) 27.5 MCG/ACTUATION SPRAY.SUSP 2 PUF NS DAILY ALLERGY (Reported) Insulin Aspart (Novolog) 100 UNIT/ML VIAL 0 SC QHS DIABETES LESS THAN GLUCOSE 250, GIVE NO INSULIN 251-300 GIVE 2 UNITS 301-350 GIVE 3 UNITS 351-400 GIVE 4 UNITS Insulin Aspart (Novolog) 100 UNIT/ML VIAL 0 SC TIDAC DIABETES GLUCOSE LESS THAN 80 GIVE NO INSULIN GLUCOSE 80-150 GIVE 3 UNITS 151-200 GIVE 5 UNITS 201-250 GIVE 6 UNITS 251-300 GIVE 7 UNITS 301-350 GIVE 8 UNITS 351-400 GIVE 9 UNITS greater than 400 give 9 units and CALL Insulin Detemir (Levemir) 100 UNIT/ML VIAL 10 UNITS SC BID DIABETES Losartan (Cozaar) 100 MG TABLET 1 TAB PO DAILY HYPERTENSION (Reported) Metoprolol Succ XL (Toprol XL) 25 MG TAB 1 TAB PO DAILY HYPERTENSION ( Reported) Pregabalin (Lyrica) 50 MG CAPSULE 1 CAP PO TID NEUROPATHY (Reported) Vancomycin HCl 1 GRAM VIAL.PORT 1 VIAL IV BID OSTEOMYELITIS GIVE UNTIL March. Current Medications: Current Medications Sig/Coral Start time Last Medication Dose Route Stop Time Status Admin Acetaminophen 500 MG TID 04/03 1156 AC 04/29 PO 1336 Albuterol Sulfate 3 ML Q4P PRN 04/15 0800 AC 04/24 INH 1039 Amlodipine Besylate 5 MG DAILY 04/03 1200 AC 04/29 PO 0832 Aspirin 81 MG DAILY 04/04 1000 AC 04/29 PO 0832 Docusate Sodium 100 MG DAILY NEEDED PRN 04/26 1100 AC 04/26 PO 1204 Fluticasone 2 SPRAY DAILY 04/03 1155 AC 04/29 Propionate THOMAS 0835 Furosemide 40 MG 7:30 AM, & 4:30 PM 04/25 0730 AC 04/29 IV 0831 Heparin Sodium 5,000 UNIT Q8 04/15 2200 AC 04/29 (Porcine) SC 1336 Insulin Aspart 0 TIDAC 04/28 1200 AC 04/29 SC 1225 Insulin Detemir 9 UNITS BID 04/28 1000 AC 04/29 SC 0832 Metoprolol Succinate 25 MG DAILY 04/03 1714 AC 04/29 PO 0832 Omeprazole 40 MG DAILY AC 04/11 0700 AC 04/29 PO 0613 Polyethylene Glycol 17 GM DAILY 04/21 0830 AC 04/28 PO 1003 Povidone Iodine 1 MEHRAN DAILY 04/13 1000 AC 04/29 TOP 1337 Pregabalin 50 MG TID 04/03 1155 AC 04/29 PO 0834 Senna 187 MG AT BEDTIME 04/25 2200 AC 04/28 PO 2104 Review of Systems Review of Systems: Limited by clinical condition, no headache, no report of lateralized weakness or numbness, dizziness. Past History Travel History Traveled to [place] past 21 day No Medical History Blood Transfusion Hx: No Neurological: peripheral neuropathy EENT: cataracts, diabetic retinopathy Cardiovascular: CAD, hypertension, hyperlipidemia, Pacemaker (R) Respiratory: bronchitis Gastrointestinal: NONE Hepatic: NONE Renal: NONE Musculoskeletal: fracture, right foot osteomyeltitis w/ wound vac at right great toe (Mar 2017) Psychiatric: NONE Endocrine: diabetes type 1 Blood Disorders: NONE Cancer(s): NONE APPLICATION COORDINATOR/Reproductive: NONE Surgical History Surgical History: pacemaker right great toe amputation Feb 2017 Family History Relations & Conditions If Any: MOTHER FH: myocardial infarction Psychosocial History Services at Home: None Primary Language: Korean Smoking Status: Former Smoker Functional Ability ADLs Independent: dressing, eating, toileting, bathing. Ambulation: independent IADLs Independent: shopping, housework, finances, food prep, telephone, transportation , medication admin. Exam & Diagnostic Data Vital Signs and I&O Vital Signs Date Time Temp Pulse Resp B/P B/P Pulse O2 O2 Flow FiO2 Mean Ox Delivery Rate 04/29 0832 79 148/64 04/29 0832 79 148/64 04/29 0718 98.7 79 22 148/64 98 Nasal Cannula 04/28 2235 Nasal 2.0L Cannula 04/28 2200 97.3 73 28 134/60 98 Nasal 2.0L Cannula 04/28 1924 98.2 70 23 118/52 99 Nasal 2.0L Cannula 04/28 1600 98.7 76 17 132/60 96 Nasal 2.0L Cannula 04/28 1600 96 Nasal 2.0L Cannula Intake & Output 04/29 1600 04/29 0800 04/29 0000 Intake Total 120 480 Output Total 850 200 Balance -730 280 Intake, Oral 120 480 Number 5 Bowel Movements Output, Urine 850 200 Patient 158 lb Weight Weight Bed scale Measurement Method Physical Exam: Appears chronically ill, fatigued resp 24/min with pursed lips awake, conversant, no language errors VFF, EOMI [id number] could not visualize fundi facial movement symmetric lower cranial nerves OK motor: generally weak, no drift UE, left footdrop4-/5 DTRs normal BC, KJ absent AJs left toe downgoing distal sensory loss BLE Last 48 Hours of Lab Results: Laboratory Tests 04/29 04/28 04/28 0715 0710 0656 Chemistry Sodium (137 - 145 mmol/L) 138 137 Potassium (3.5 - 5.1 mmol/L) 4.4 4.4 Chloride (98 - 107 mmol/L) 98 95 L Carbon Dioxide (22 - 30 mmol/L) 32 H 34 H Anion Gap (5 - 16) 8 7 BUN (9 - 20 mg/dL) 33 H 30 H Creatinine (0.7 - 1.2 mg/dL) 1.2 1.2 Estimated GFR (>60 ml/min) > 60 > 60 BUN/Creatinine Ratio (7 - 25 %) 27.5 H 25.0 Phosphorus (2.5 - 4.5 mg/dL) 4.4 Cancelled Magnesium (1.6 - 2.3 mg/dL) 2.0 2.0 Cancelled Troponin I (<0.11 ng/ml) 0.02 Cancelled Toxicology Vancomycin Trough (10.0 - 20.0 ug/mL) 6.2 L Imaging/Other Studies: no neuroimaging Assessment/Plan Assessment: Syncope. Likely orthostatic due to prolonged bedrest, neuropathy Recommendations: orthostatic BPs start getting up in chair more hydration no neurodiagnostic testing indicated Consult Acknowledgment - Thank you for your consult request.
--- NOTE | 2017-04-29 15:53 | PN- Pulmonary ---
Subjective HPI/Critical Care Issues: Patient was seen and examined at bedside, afebrile and he currently denies any complaints, both lower extremity and clean dressing Review of Systems Constitutional: Reports: see HPI. Objective Current Medications: Current Medications Sig/Coral Start time Last Medication Dose Route Stop Time Status Admin Acetaminophen 500 MG TID 04/03 1156 AC 04/29 PO 1336 Albuterol Sulfate 3 ML Q4P PRN 04/15 0800 AC 04/24 INH 1039 Amlodipine Besylate 5 MG DAILY 04/03 1200 AC 04/29 PO 0832 Aspirin 81 MG DAILY 04/04 1000 AC 04/29 PO 0832 Docusate Sodium 100 MG DAILY NEEDED PRN 04/26 1100 AC 04/26 PO 1204 Fluticasone 2 SPRAY DAILY 04/03 1155 AC 04/29 Propionate THOMAS 0835 Furosemide 40 MG 7:30 AM, & 4:30 PM 04/25 0730 AC 04/29 IV 0831 Heparin Sodium 5,000 UNIT Q8 04/15 2200 AC 04/29 (Porcine) SC 1336 Insulin Aspart 0 TIDAC 04/28 1200 AC 04/29 SC 1225 Insulin Detemir 9 UNITS BID 04/28 1000 AC 04/29 SC 0832 Metoprolol Succinate 25 MG DAILY 04/03 1714 AC 04/29 PO 0832 Omeprazole 40 MG DAILY AC 04/11 0700 AC 04/29 PO 0613 Polyethylene Glycol 17 GM DAILY 04/21 0830 AC 04/28 PO 1003 Povidone Iodine 1 MEHRAN DAILY 04/13 1000 AC 04/29 TOP 1337 Pregabalin 50 MG TID 04/03 1155 AC 04/29 PO 0834 Senna 187 MG AT BEDTIME 04/25 2200 AC 04/28 PO 2104 Vital Signs & I&O Last 24 Hrs of Vitals and I&O: Vital Signs Date Time Temp Pulse Resp B/P B/P Pulse O2 O2 Flow FiO2 Mean Ox Delivery Rate 04/29 1400 98.2 68 22 100/60 100 / 0832 79 148/64 04/29 0832 79 148/64 04/29 0718 98.7 79 22 148/64 98 Nasal Cannula 04/28 2235 Nasal 2.0L Cannula 04/28 2199 97.3 73 28 134/60 98 Nasal 2.0L Cannula 04/28 1924 98.2 70 23 118/52 99 Nasal 2.0L Cannula 04/28 1600 98.7 76 17 132/60 96 Nasal 2.0L Cannula 04/28 1600 96 Nasal 2.0L Cannula Intake & Output 04/29 1600 04/29 0800 04/29 0000 Intake Total 120 480 Output Total 850 200 Balance -730 280 Intake, Oral 120 480 Number 5 Bowel Movements Output, Urine 850 200 Patient 158 lb Weight Weight Bed scale Measurement Method Impression/Plan Impression/Plan Impression/Plan: Lungs rhonchi and scattered crackles on the right, Heart regular rhythm with no murmur Abdomen is soft, nontender with positive bowel sounds Extremities necrotic right second and third toes; left foot petechial/ purpuric rash IMPRESSION This is a gentleman with diabetes type 1 with multiple complications including neuropathy, significant peripheral vascular disease, previous pacemaker far heart block, previous history of MRSA osteomyelitis with previous foot surgery in the left side with femoral angioplasty, worsening performance status, previous normal pulmonary function tests, multiple organ dysfunction, now has a following issues * Syncope * Previous Resolved Acute on chronic hypoxemic respiratory failure related to combination of factors which include congestive heart failure both systolic and diastolic failure with effusion, with chronic coronary ischemia * Resolving Effusions due to CHF now wih mild fluid overload * Significant peripheral vascular disease with gangrene and probable osteomyelitis of his left foot. Infectious disease, podiatry and vascular surgery is following pt s/p TMA rt foot, now being considered for angio and amputuation * Type 1 diabetes with multiple organ dysfunction including diabetic nephropathy , neuropathy, peripheral vascular disease and retinopathy. * CKD with renal insufficiency since admission most likely related to combination of factors including his underlying diabetic kidney disease. * Reduced ejection fraction with EF of 35-40% with abnormal diastolic dysfunction which appears to be chronic * Severe peripheral vascular disease with dry gangrene of the left foot s/p tma Recommendation COnt oxygen goal sat 92 Watch renal function Cont to monitor glucose Keep his head of bed elevated Will follow prn Keep hob up Will follow prn
[2017-04-30] VITALS: BP 112/50
--- NOTE | 2017-04-30 07:14 | PN- Housestaff ---
Rahel LOZANO,Jo 04/30/17 0714: Subjective Follow-up For: MRSA osteomyelitis Acute hypoxic respiratory failure Severe peripheral vascular disease Right leg gangrene Type 1 diabetes Renal insufficiency- resolved Tele-Events Since Last Visit: Sinus pacing, 70 NO EVENTS Subjective: Patient was seen and examined at bedside, he denies any complaints, his blood sugar was noticed to be poorly controlled. Will be going tomorrow for surgery possible BKA Review of Systems Constitutional: Denies: no symptoms. Cardiovascular: Denies: no symptoms. Respiratory: Denies: no symptoms. Gastrointestinal: Denies: no symptoms. Genitourinary: Denies: no symptoms. Musculoskeletal: Denies: no symptoms. Skin: Denies: no symptoms. Objective Last 24 Hrs of Vital Signs/I&O Vital Signs Date Time Temp Pulse Resp B/P B/P Pulse O2 O2 Flow FiO2 Mean Ox Delivery Rate 04/30 0935 77 112/62 04/30 0935 77 112/62 04/30 0720 98.0 77 22 112/62 99 /08 0000 Nasal 2.0L Cannula 04/30 0000 98.0 75 16 112/50 100 Nasal 2.0L Cannula 04/29 1600 100 Nasal 2.0L Cannula 04/29 1400 98.2 68 22 100/60 100 Intake & Output 04/30 1600 08 0800 03/08 0000 Intake Total 240 470 Output Total 350 420 Balance -110 50 Intake, IV 20 Intake, Oral 240 450 Number 1 Bowel Movements Output, Urine 350 420 Patient 154 lb Weight Physical Exam General Appearance: Alert, Oriented X3, Cooperative, No Acute Distress HEENT: Atraumatic, PERRLA, EOMI, Mucous Membr. 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 Was transferred to [facility] where he underwent TMA right foot by on 04/14/17. Superficial culture 04/20 : VRE, Ecoli, MRSA (sens to Cotrim), suspecting contamination except MRSA Continued on Vanc later Vanc level on 04/25: 22 ug/ml, vanc on hold since Monday 04/24 Next vanc level: 04/28 Acute on chronic hypoxemic respiratory failure multifactorial, including CHF, acute lung injury possibly bilateral aspiration pneumonitis. Patient also received broad spectrum antibiotics and was currently off antibiotics per ID. - saturating 96% on 2L NC -Continue Lasix 40 mg BID IV Peripheral Vascular Disease Complicated with osteomyelitis and gangrene of foot s/p MRSA OM; Right foot gangrene involving second and third toe s/p TMA. Continue to follow off antibiotics awaiting right angiography and R BKA tomorrow - ID on board appreciate recomendations, currenly following off antibiotics - Patient does not have capacity to make medical desicion, will evaluate daily Type II OK Troponin peaked at 6.64 which was thought be likely due to type 2 OK. No EKG changes s/o OK. Component of volume overload, PRN diuresis while monitoring the serum creatinine closely. Echocardiogram: Estimated ejection fraction is 35-40%. Right ventricular systolic pressure estimated to be elevated at 55- 60 mmHg. Moderate to severe pulmonary hypertension. Dilated IVC. Dr Avery, wind plant manager on board PARRIS on CKD Sr Cr 1.4. Will continue to monitor. Type 1 Diabetes Complicated with diabetic nephropathy, neuropathy, peripheral vascular disease and retinopathy. [id number] Endocrinology on board, appreciate recomendations. on levemir and ISS accuchecks Skin: Unstageable pressure ulcer noted on right upper buttocks which was present on admission. Continue wound care recommendations. DVT ppx sc heparin DNR/DNI N.p.o. at midnight for surgery tomorrow Problem List: 1. Syncope 2. Acute and chronic respiratory failure with hypoxia 3. PARRIS (acute kidney injury) 4. Hypertension 5. Osteomyelitis Pain Ratin Pain Location: N/A Pain Goal: Remain pain free Pain Plan: pathway Tomorrow's Labs & Rationales: Theo Obrien MD 03/08/18 1310: Attending MD Review Statement Attending Statement Attending MD Statement: examined this patient, discuss w/resident/PA/BSA/AML COMPLIANCE OFFICER, agreed w/resident/PA/BSA/AML COMPLIANCE OFFICER, reviewed EMR data (avail), discussed with nursing, discussed with case mgmt, amended to note Attending Assessment/Plan: The patient was seen with house staff and chart reviewed. He will undergo right lower extremity amputation surgery tomorrow. Appreciate cardiology input to optimize care sarwat-operatively.
[2017-04-30 07:20] VITALS: BP 112/62
[2017-04-30 08:11] LABS: ABSOLUTE BASOPHIL COUNT 0.1 /CUMM (0.0-0.2); ABSOLUTE EOSINOPHIL COUNT 0.5 /CUMM (0.0-0.7); ABSOLUTE GRANULOCYTE CT 4.1 /CUMM (1.4-6.5); ABSOLUTE LYMPH COUNT 1.5 /CUMM (1.2-3.4); ABSOLUTE MONOCYTE COUNT 0.4 /CUMM (0.10-0.60); BASOPHIL % 1.5 % (0.0-2.0); GRANULOCYTE % 62.7 % (42.2-75.2); HEMATOCRIT 24.1 % (42-52); MEAN CORPUSCULAR HGB 30.4 PG (27.0-31.0); MEAN CORPUSCULAR HGB CONC 33.3 G/DL (33.0-37.0); MEAN CORPUSCULAR VOLUME 91.3 FL (80.0-94.0); MEAN PLATELET VOLUME 8.1 FL (7.4-10.4); PLATELET COUNT 564 /CUMM (130-400); RBC DISTRIBUTION WIDTH 16.1 % (11.5-14.5); RED BLOOD CELL CT 2.64 /CUMM (4.70-6.10); WHITE BLOOD CELL COUNT 6.5 /CUMM (4.8-10.8)
--- NOTE | 2017-04-30 11:19 | PN- Cardiology ---
Subjective Subjective: The patient is comfortable with no current complaints. No chest pain. No palpitations. No diaphoresis. Objective Vital Signs and I&Os Vital Signs Date Time Temp Pulse Resp B/P B/P Pulse O2 O2 Flow FiO2 Mean Ox Delivery Rate 04/30 1025 93 Room Air Room Air 04/30 0935 77 112/62 04/30 0935 77 112/62 04/30 0720 98.0 77 22 112/62 99 /08 0000 Nasal 2.0L Cannula 04/30 0000 98.0 75 16 112/50 100 Nasal 2.0L Cannula 04/29 1600 100 Nasal 2.0L Cannula 04/29 1400 98.2 68 22 100/60 100 Intake & Output 04/30 1600 04/30 0804/30 0000 04/29 1600 04/29 0804/29 0000 Intake Total 240 470 480 120 480 Output Total 350 420 600 850 200 Balance -110 50 -120 -730 280 Intake, IV 20 Intake, Oral 240 450 480 120 480 Number 1 1 5 Bowel Movements Output, Urine 350 420 600 850 200 Patient 154 lb 158 lb Weight Weight Bed scale Measurement Method Physical Exam: Gen: NAD HEENT: normal Lungs: Scattered rhonchi bilateral, normal resp. effort Heart: RRR, S1, S2, no murmurs Abdomen: Soft, nontender, no masses Extremities: Dressings in place. 1+ edema. Neuro: Alert and oriented x 3, cranial nerves intact Current Medications: Current Medications Sig/Coral Start time Last Medication Dose Route Stop Time Status Admin Acetaminophen 500 MG TID 04/03 1156 AC 04/30 PO 0935 Albuterol Sulfate 3 ML Q4P PRN 04/15 0800 AC 04/24 INH 1039 Alprazolam 0.25 MG ONCE ONE 04/30 1000 DC 04/30 PO 04/30 1001 1016 Amlodipine Besylate 5 MG DAILY 04/03 1200 AC 04/30 PO 0935 Aspirin 81 MG DAILY 04/04 1000 AC 04/29 PO 0832 Dextrose/Sodium 1,000 ML Q20H 05/01 0000 CAN Chloride IV Docusate Sodium 100 MG DAILY NEEDED PRN 04/26 1100 AC 04/26 PO 1204 Fluticasone 2 SPRAY DAILY 04/03 1155 AC 04/30 Propionate THOMAS 0936 Furosemide 40 MG 7:30 AM, & 4:30 PM 04/25 0730 AC 03/08 IV 0812 Heparin Sodium 5,000 UNIT Q8 04/15 2200 AC 04/30 (Porcine) SC 05/01 0400 0557 Insulin Aspart 0 TIDAC 04/28 1200 AC 04/30 WV 04/30 2355 0812 Insulin Detemir 9 UNITS BID 04/28 1000 AC 04/30 SC 0812 Insulin Human Regular 0 Q6 05/01 0000 AC SC Metoprolol Succinate 25 MG DAILY 04/03 1714 AC 04/30 PO 0935 Omeprazole 40 MG DAILY AC 04/11 0700 AC 04/30 PO 0554 Polyethylene Glycol 17 GM DAILY 04/21 0830 AC 04/28 PO 1003 Povidone Iodine 1 MEHRAN DAILY 04/13 1000 AC 04/30 TOP 0936 Pregabalin 50 MG TID 04/03 1155 AC 04/30 PO 0814 Senna 187 MG AT BEDTIME 04/25 2200 AC 04/28 PO 2104 Results Last 48 Hrs of Labs/Mics: Laboratory Tests 04/30/17 0650: Anion Gap 8, Estimated GFR 50 L, BUN/Creatinine Ratio 26.4 H, CBC w Diff NO MAN DIFF REQ, RBC 2.64 L, MCV 91.3, MCH 30.4, MCHC 33.3, RDW 16.1 H, MPV 8.1, Gran % 62.7, Lymphocytes % 22.4, Monocytes % 6.4, Eosinophils % 7.0 H, Basophils % 1.5, Absolute Granulocytes 4.1, Absolute Lymphocytes 1.5, Absolute Monocytes 0.4, Absolute Eosinophils 0.5, Absolute Basophils 0.1 04/29/17 0715: Anion Gap 8, Estimated GFR > 60, BUN/Creatinine Ratio 27.5 H, Magnesium 2.0 Assessment/Plan Assessment/Plan Assessment: 1. Acute hypoxic respiratory failure with acute on chronic HFrEF and slight worsening of dyspnea today 2. Severe PAD 3. Gangrene right LE 4. DM 5. Renal insufficiency. 6. Slightly worsening anemia 7. Elevated troponin Plan: * Would change Lasix to 40 mg p.o. twice daily * Continue other medications * Surgery planned for tomorrow Continue telemetry? Yes
--- NOTE | 2017-04-30 12:35 | PN- Diabetes ---
Assessment/Plan Diabetes Assessment: 70 y/o male, Hx of DM type 1 diagnosed when he was 14 years old. He was on an insulin pump with basal rate running at 0.9 units per hour in the past. His diabetes was complicated by neuropathy, retinopathy, nephropathy. Patient presented to the ED after sustaining an unwitnessed fall. He was admitted for positive troponin with peak troponin of 6.64, ongoing right foot infection and gangrene of 2nd toe and 3rd toe. Right foot TMA was done on 2017. 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 He is scheduled to have aniogram done on 05/01/2017. Patient will be kept NPO after midnight. currently he is on levemir 9 units twice a day, Novolog coverage before meals and Novolog coverage at bedtime. His FSGs were 261, 306 and 398. His glucose levels were not controlled today. Plan: 1. repeat FSG at 2 pm today; please inform me the result and then his insulin regimen will be adjusted accordingly. 2. he will be NPO midnight tonight; he will be on Levemir 9 units twice a day for now and RISS every 6 hours while he is NPO-- FSG < 200, no coverage; FSG 200 -250, 2 unita; FSG 251-300, 4 units, etc. 3. monitor FSGs. will follow. Subjective Subjective: He feels ok; but his glucose levels were out of control today; the reason is unclear at this point. Objective Last 24 Hrs of Vital Signs/I&O Vital Signs Date Time Temp Pulse Resp B/P B/P Pulse O2 O2 Flow FiO2 Mean Ox Delivery Rate 04/30 1025 93 Room Air Room Air 04/30 0935 77 112/62 08 0935 77 112/62 08 0720 98.0 77 22 112/62 99 03/08 0000 Nasal 2.0L Cannula / 0000 98.0 75 16 112/50 100 Nasal 2.0L Cannula 04/29 1600 100 Nasal 2.0L Cannula 04/29 1400 98.2 68 22 100/60 100 Intake & Output /08 1600 /08 0800 03/08 0000 Intake Total 400 240 470 Output Total 600 350 420 Balance -200 -110 50 Intake, IV 20 Intake, Oral 400 240 450 Number 2 1 Bowel Movements Output, Urine 600 350 420 Patient 154 lb Weight Findings Pertinent Lab/[place] Results: Laboratory Tests 04/30 0650 Chemistry Sodium (137 - 145 mmol/L) 135 L Potassium (3.5 - 5.1 mmol/L) 4.6 Chloride (98 - 107 mmol/L) 95 L Carbon Dioxide (22 - 30 mmol/L) 32 H Anion Gap (5 - 16) 8 BUN (9 - 20 mg/dL) 37 H Creatinine (0.7 - 1.2 mg/dL) 1.4 H Estimated GFR (>60 ml/min) 50 L BUN/Creatinine Ratio (7 - 25 %) 26.4 H Hematology CBC w Diff NO MAN DIFF REQ WBC (4.8 - 10.8 /CUMM) 6.5 RBC (4.70 - 6.10 /CUMM) 2.64 L Hgb (14.0 - 18.0 G/DL) 8.0 L Hct (42 - 52 %) 24.1 L MCV (80.0 - 94.0 FL) 91.3 MCH (27.0 - 31.0 PG) 30.4 MCHC (33.0 - 37.0 G/DL) 33.3 RDW (11.5 - 14.5 %) 16.1 H Plt Count (130 - 400 /CUMM) 564 H MPV (7.4 - 10.4 FL) 8.1 Gran % (42.2 - 75.2 %) 62.7 Lymphocytes % (20.5 - 51.1 %) 22.4 Monocytes % (1.7 - 9.3 %) 6.4 Eosinophils % (0 - 5 %) 7.0 H Basophils % (0.0 - 2.0 %) 1.5 Absolute Granulocytes (1.4 - 6.5 /CUMM) 4.1 Absolute Lymphocytes (1.2 - 3.4 /CUMM) 1.5 Absolute Monocytes (0.10 - 0.60 /CUMM) 0.4 Absolute Eosinophils (0.0 - 0.7 /CUMM) 0.5 Absolute Basophils (0.0 - 0.2 /CUMM) 0.1
[2017-04-30 15:11] VITALS: BP 142/60
[2017-04-30 23:10] VITALS: BP 138/70
[2017-05-01 07:00] VITALS: BP 198/100
[2017-05-01 07:54] LABS: PT 11.5 SEC (9.4-12.5); PTT 28 SEC (25-37)
[2017-05-01 08:09] LABS: ABSOLUTE BASOPHIL COUNT 0.1 /CUMM (0.0-0.2); ABSOLUTE EOSINOPHIL COUNT 0.4 /CUMM (0.0-0.7); ABSOLUTE GRANULOCYTE CT 3.1 /CUMM (1.4-6.5); ABSOLUTE LYMPH COUNT 1.8 /CUMM (1.2-3.4); ABSOLUTE MONOCYTE COUNT 0.4 /CUMM (0.10-0.60); BASOPHIL % 2.1 % (0.0-2.0); EOSINOPHIL % 6.8 % (0-5); GRANULOCYTE % 53.3 % (42.2-75.2); HEMATOCRIT 24.3 % (42-52); MEAN CORPUSCULAR HGB 30.1 PG (27.0-31.0); MEAN CORPUSCULAR VOLUME 91.3 FL (80.0-94.0); MEAN PLATELET VOLUME 8.1 FL (7.4-10.4); PLATELET COUNT 538 /CUMM (130-400); RBC DISTRIBUTION WIDTH 16.7 % (11.5-14.5); RED BLOOD CELL CT 2.66 /CUMM (4.70-6.10); WHITE BLOOD CELL COUNT 5.8 /CUMM (4.8-10.8)
--- NOTE | 2017-05-01 08:11 | PN- Diabetes ---
Assessment/Plan Diabetes Assessment: 70 y/o male, Hx of DM type 1 diagnosed when he was 14 years old. He was on an insulin pump with basal rate running at 0.9 units per hour in the past. His diabetes was complicated by neuropathy, retinopathy, nephropathy. Patient presented to the ED after sustaining an unwitnessed fall. He was admitted for positive troponin with peak troponin of 6.64, ongoing right foot infection and gangrene of 2nd toe and 3rd toe. Right foot TMA was done on 2017. 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 He is scheduled to have aniogram done on 05/01/2017. Patient has been kept NPO after midnight. currently he is on levemir 7 units twice a day, Novolog coverage every 4 hours and D51/2 NS at 50 ml/hour. His FSGs were 192, 211, 221, 133 and 185. Plan: continue the current insuin regimen for now; monitor FSGs. will follow. Subjective Subjective: He feels okay this morning. Objective Last 24 Hrs of Vital Signs/I&O Vital Signs Date Time Temp Pulse Resp B/P B/P Pulse O2 O2 Flow FiO2 Mean Ox Delivery Rate 05/01 0700 67 198/100 05/01 0000 Room Air 04/30 2310 98.3 85 16 138/70 94 Room Air 04/30 1511 97.6 78 22 142/60 96 04/30 1025 93 Room Air Room Air 04/30 0935 77 112/62 04/30 0935 77 112/62 Intake & Output 05/01 1600 05/01 0800 05/01 0000 Intake Total 780 Output Total 600 Balance 180 Intake, IV 300 Intake, Oral 480 Output, Urine 600 Patient 157 lb Weight Findings Pertinent Lab/[place] Results: Laboratory Tests 05/01 0636 Chemistry Sodium Pending Potassium Pending Chloride Pending Carbon Dioxide Pending Anion Gap Pending BUN Pending Creatinine Pending BUN/Creatinine Ratio Pending Coagulation PT Pending INR Pending APTT Pending Hematology CBC w Diff Pending WBC Pending RBC Pending Hgb Pending Hct Pending MCV Pending MCH Pending MCHC Pending RDW Pending Plt Count Pending MPV Pending
--- NOTE | 2017-05-01 08:24 | PN- Housestaff ---
Rahel LOZANO,Jo 05/01/17 0823: Subjective Follow-up For: MRSA osteomyelitis Acute hypoxic respiratory failure Severe peripheral vascular disease Right leg gangrene Type 1 diabetes Renal insufficiency Tele-Events Since Last Visit: Pacing, 82, 0.12 Subjective: Patient was seen and examined at bedside, he is n.p.o. for his angiography and possible BKA surgery today, no overnight events Review of Systems Constitutional: Denies: no symptoms. Cardiovascular: Denies: no symptoms. Respiratory: Denies: no symptoms. Gastrointestinal: Denies: no symptoms. Genitourinary: Denies: no symptoms. Objective Last 24 Hrs of Vital Signs/I&O Vital Signs Date Time Temp Pulse Resp B/P B/P Pulse O2 O2 Flow FiO2 Mean Ox Delivery Rate 05/01 1133 67 115/52 05/01 0825 67 198/100 05/01 0823 67 198/100 05/01 0700 67 198/100 05/01 0000 Room Air 04/30 2310 98.3 85 16 138/70 94 Room Air 04/30 1511 97.6 78 22 142/60 96 Intake & Output 05/01 1600 05/01 0800 05/01 0000 Intake Total 300 480 Output Total 600 Balance -300 480 Intake, IV 300 Intake, Oral 0 480 Output, Urine 600 Patient 154 lb 157 lb Weight Weight Bed scale Measurement Method Physical Exam General Appearance: Alert, Oriented X3, Cooperative, No Acute Distress HEENT: Atraumatic, PERRLA, EOMI, Mucous Membr. 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 Was transferred to [facility] where he underwent TMA right foot by on 04/14/17. Superficial culture 04/20 : VRE, Ecoli, MRSA (sens to Cotrim), suspecting contamination except MRSA Continued on Vanc later Vanc level on 04/25: 22 ug/ml, vanc on hold since Monday 04/24 Next vanc level: 04/28 Acute on chronic hypoxemic respiratory failure multifactorial, including CHF, acute lung injury possibly bilateral aspiration pneumonitis. Patient also received broad spectrum antibiotics and was currently off antibiotics per ID. - saturating 96% on 2L NC -Continue Lasix 40 mg BID IV Peripheral Vascular Disease Complicated with osteomyelitis and gangrene of foot s/p MRSA OM; Right foot gangrene involving second and third toe s/p TMA. Continue to follow off antibiotics awaiting right angiography and R BKA today - ID on board appreciate recomendations, currenly following off antibiotics Type II SD Troponin peaked at 6.64 which was thought be likely due to type 2 SD. No EKG changes s/o SD. Component of volume overload, PRN diuresis while monitoring the serum creatinine closely. Echocardiogram: Estimated ejection fraction is 35-40%. Right ventricular systolic pressure estimated to be elevated at 55- 60 mmHg. Moderate to severe pulmonary hypertension. Dilated IVC. Dr Avery, sheet rock taper helper on board PARRIS on CKD Sr Cr 1.4. Will continue to monitor. Type 1 Diabetes Complicated with diabetic nephropathy, neuropathy, peripheral vascular disease and retinopathy. [id number] Endocrinology on board, appreciate recomendations. We will continue the current insulin regimen on levemir and ISS accuchecks Skin: Unstageable pressure ulcer noted on right upper buttocks which was present on admission. Continue wound care recommendations. DVT ppx sc heparin DNR/DNI N.p.o. for surgery today, will restart his diet afterwards Problem List: 1. PARRIS (acute kidney injury) 2. Decreased urine output 3. Acute and chronic respiratory failure with hypoxia 4. Cellulitis of right foot Pain Ratin Pain Location: N/A Pain Goal: Remain pain free Pain Plan: pathway Tomorrow's Labs & Rationales: cbc Oren Ayala 05/01/17 1416: Attending Review Statement Attending Statement Attending MD Statement: examined this patient, discuss w/resident/PA/WET CHAR CONVEYOR TENDER, agreed w/resident/PA/WET CHAR CONVEYOR TENDER, reviewed EMR data (avail), discussed with nursing, discussed with case mgmt Attending Assessment/Plan: pt going for angio and surgery today. started pt on iv fluids and will hold the lasix for now given that he is going to get contrast and undergo surgery. pt has ckd and is high risk of contrast injury.
[2017-05-01 11:33] VITALS: BP 115/52
--- NOTE | 2017-05-01 16:23 | RADIOLOGY REPORT ---
EXAMINATION: XR FEMUR, RIGHT CLINICAL INFORMATION: History of right atherectomy and angioplasty performed in operating room. COMPARISON: Noncontrast CT imaging of abdomen pelvis from 04/03/2017 TECHNIQUE: Intraoperative fluoroscopic imaging of the abdomen, thighs and legs was performed by Dr. Venegas at the time of diagnostic and interventional angiography procedures. Please refer to the operative report. A total of 25 imaging series are submitted into the electronic picture archive. Fluoroscopy time was 20 minutes, 51 seconds. FINDINGS: This report is provided for administrative purposes only. With regards to the diagnostic findings and specific interventions performed, please refer to the operative report. IMPRESSION: Fluoroscopic imaging was performed in the operating room at the time of arteriography, atherectomy and angioplasty.
--- NOTE | 2017-05-01 16:39 | PN- Infect Dx ---
Subjective Subjective: Afebrile. He was seen postop in the recovery room and is unable to provide any history at this time. Objective Last 24 Hrs of Vital Signs/I&O Vital Signs Date Time Temp Pulse Resp B/P B/P Pulse O2 O2 Flow FiO2 Mean Ox Delivery Rate 05/01 1133 67 115/52 05/01 0825 67 198/100 05/01 0823 67 198/100 05/01 0700 67 198/100 05/01 0000 Room Air 04/30 2310 98.3 85 16 138/70 94 Room Air Intake & Output 05/01 1600 05/01 0805/01 0000 Intake Total 300 480 Output Total 600 Balance -300 480 Intake, IV 300 Intake, Oral 0 480 Output, Urine 600 Patient 154 lb 157 lb Weight Weight Bed scale Measurement Method Physical Exam Other Physical Findings: He is groggy but responsive in no acute distress Extremities dressings intact over both feet Results Last 24 Hours of Lab Results: Laboratory Tests 05/01 0536 Chemistry Sodium (137 - 145 mmol/L) 140 Potassium (3.5 - 5.1 mmol/L) 4.3 Chloride (98 - 107 mmol/L) 98 Carbon Dioxide (22 - 30 mmol/L) 33 H Anion Gap (5 - 16) 9 BUN (9 - 20 mg/dL) 40 H Creatinine (0.7 - 1.2 mg/dL) 1.4 H Estimated GFR (>60 ml/min) 50 L BUN/Creatinine Ratio (7 - 25 %) 28.6 H Coagulation PT (9.4 - 12.5 SEC) 11.5 INR (0.90 - 1.17) 1.05 APTT (25 - 37 SEC) 28 Hematology CBC w Diff NO MAN DIFF REQ WBC (4.8 - 10.8 /CUMM) 5.8 RBC (4.70 - 6.10 /CUMM) 2.66 L Hgb (14.0 - 18.0 G/DL) 8.0 L Hct (42 - 52 %) 24.3 L MCV (80.0 - 94.0 FL) 91.3 MCH (27.0 - 31.0 PG) 30.1 MCHC (33.0 - 37.0 G/DL) 33.0 RDW (11.5 - 14.5 %) 16.7 H Plt Count (130 - 400 /CUMM) 538 H MPV (7.4 - 10.4 FL) 8.1 Gran % (42.2 - 75.2 %) 53.3 Lymphocytes % (20.5 - 51.1 %) 31.7 Monocytes % (1.7 - 9.3 %) 6.1 Eosinophils % (0 - 5 %) 6.8 H Basophils % (0.0 - 2.0 %) 2.1 H Absolute Granulocytes (1.4 - 6.5 /CUMM) 3.1 Absolute Lymphocytes (1.2 - 3.4 /CUMM) 1.8 Absolute Monocytes (0.10 - 0.60 /CUMM) 0.4 Absolute Eosinophils (0.0 - 0.7 /CUMM) 0.4 Absolute Basophils (0.0 - 0.2 /CUMM) 0.1 Last 24 Hours of [place] Results: No new cultures Assessment/Plan ID Impression: Stable, status post bilateral lower extremity angiogram, right SFA stent and right popliteal angioplasty earlier this afternoon. He remains afebrile with a normal white blood cell count off antibiotics now 17 days status post a right transmetatarsal amputation for MRSA osteomyelitis of the right foot, which was followed by a 12 day course of Vancomycin, which was discontinued 4 days ago. Suggestion: 1. Further management of his necrotic right foot per Podiatry and Vascular surgery 2. Continue to follow off antibiotics pending above
--- NOTE | 2017-05-01 17:23 | Operative Report ---
Operative/Inv Procedure Report Surgery Date: 05/01/17 Name of Procedure: - Ultrasound-guided left common femoral artery access - Aortogram - Second order right leg angiogram - Left leg angiogram in a retrograde fashion through the sheath in the left common femoral artery - Atherectomy of the distal right SFA - Angioplasty and stenting of distal right SFA - Angioplasty of right popliteal artery - Angioplasty of mid right SFA Pre-Operative Diagnosis: Nonhealing right transmetatarsal amputation site Post-Operative Diagnosis: Same Estimated Blood Loss: scant Surgeon/Weaving Machine Operator: KATHLEEN ELIAS MD Anesthesia: moderate sedation Operative/Procedure Note Note: Patient is a 71-year-old man with multiple medical issues who underwent Rosanna Denis of the right leg at the end of February of this year. He subsequently underwent right TMA by podiatry and has had nonhealing right TMA stump. Due to the general patient's condition, his son makes decisions. Decided to not pursue an ongoing chronic wound care of the TMA and was asking for a major amputation. I had a long discussion with him about this. In short, below-knee amputation will be much easier to ambulate with prosthesis. Son thought that his father with GERD and motivated to walk with prosthesis postoperatively. Therefore, I decided to perform another angiogram to understand whether he would heal the right below knee amputation and to optimize perfusion. Patient was taken to the operating room and placed supine on the table. A timeout was called according to protocol. After satisfactory induction of sedation, the patient was prepped and draped in standard surgical fashion. Using ultrasound, left common femoral artery was accessed using micropuncture technique. A Bentson wire was advanced into the aorta under direct fluoroscopic guidance. Puncture sheath was exchanged with a 5 Dominican sheath. An Omni Flush catheter was advanced over the wire and placed into the abdominal aorta. From this position, an aortogram was performed which showed patent aorta with no significant disease. Bilateral common iliac, external iliac, and internal iliacs were patent with no significant disease. Using the Omni Flush catheter and Bentson wire, the right iliac artery system was selected. The flush catheter was exchanged with a 5 Dominican glide catheter which was advanced over the wire and placed into the proximal right common femoral artery. From this position, right leg angiogram was performed which showed patent SFA with diffuse moderate disease. Profunda femoris is patent with no significant disease in multiple branches. There was a short segment near mid SFA stenosis. There was also a large short segment plaque in the distal SFA. Popliteal artery was patent which short segment about 50% stenosis. Anterior tibial artery was patent from it's origin but shortly thereafter occluded. Peroneal artery and posterior tibial artery are occluded from the origin. They reconstitutes in the mid to distal leg. The decision was made to intervene. 7000 of heparin was given. After 3 minutes was passed, a Mondecason wire was advanced into the mid SFA. The 5 Dominican sheath was exchanged with a 55 cm 6 Dominican Ansell sheath. The Ansell sheath was advanced over the wire under direct fluoroscopic guidance and placed into the mid right SFA. I was able to cross the short segment athero-sclerotic lesion in the distal SFA. The wire was exchanged with an 014 Viper wire. Then atherectomy using CSI device was performed in order to debulk the plaque. Post atherectomy angioplasty with a 5 x 60 mm balloon was performed. Then a 5 x 60 mm stent stenosis a and was post angioplastied with a 5 x 60 mm balloon. Then the short segment stenosis in the mid SFA was angioplastied with the same 5 x 60 mm balloon. I decided to also intervene on the short segment popliteal stenosis. An 018 wire was advanced into the proximal anterior tibial. A 3 x 20 mm balloon was advanced over the wire and angioplasty of the popliteal artery was performed. There was brisk flow through the SFA into the popliteal artery after angioplasty and stenting. The Ansell sheath was then exchanged with a short 6 Dominican sheath. An Exoseal device was used to close the puncture site. 5 minutes of manual pressure was applied. Sterile dressing was then applied. The patient was then taken to recovery room in stable condition.
[2017-05-01 19:02] LABS: ABSOLUTE BASOPHIL COUNT 0.1 /CUMM (0.0-0.2); ABSOLUTE EOSINOPHIL COUNT 0.2 /CUMM (0.0-0.7); ABSOLUTE GRANULOCYTE CT 7.4 /CUMM (1.4-6.5); ABSOLUTE LYMPH COUNT 1.4 /CUMM (1.2-3.4); ABSOLUTE MONOCYTE COUNT 0.5 /CUMM (0.10-0.60); BASOPHIL % 0.9 % (0.0-2.0); EOSINOPHIL % 2.4 % (0-5); GRANULOCYTE % 76.4 % (42.2-75.2); HEMATOCRIT 25.9 % (42-52); MEAN CORPUSCULAR HGB 30.4 PG (27.0-31.0); MEAN CORPUSCULAR HGB CONC 33.1 G/DL (33.0-37.0); MEAN CORPUSCULAR VOLUME 91.8 FL (80.0-94.0); MEAN PLATELET VOLUME 8.2 FL (7.4-10.4); PLATELET COUNT 545 /CUMM (130-400); RBC DISTRIBUTION WIDTH 16.8 % (11.5-14.5); RED BLOOD CELL CT 2.82 /CUMM (4.70-6.10)
--- NOTE | 2017-05-01 19:07 | PN- Cardiology ---
Subjective Subjective: Stable without new issues. Vascular surgery today. Objective Vital Signs and I&Os Vital Signs Date Time Temp Pulse Resp B/P B/P Pulse O2 O2 Flow FiO2 Mean Ox Delivery Rate 05/01 1133 67 115/52 05/01 0825 67 198/100 05/01 0823 67 198/100 05/01 0700 67 198/100 05/01 0000 Room Air 04/30 2310 98.3 85 16 138/70 94 Room Air Intake & Output 05/01 1600 05/01 0805/01 0000 04/30 1600 04/30 0804/30 0000 Intake Total 300 480 520 240 470 Output Total 600 600 350 420 Balance -300 480 -80 -110 50 Intake, IV 300 20 Intake, Oral 0 480 520 240 450 Number 2 1 Bowel Movements Output, Urine 600 600 350 420 Patient 154 lb 157 lb 154 lb Weight Weight Bed scale Measurement Method Physical Exam: Gen: NAD HEENT: normal Lungs: Scattered rhonchi bilateral, normal resp. effort Heart: RRR, S1, S2, no murmurs Abdomen: Soft, nontender, no masses Extremities: Dressings in place. 1+ edema. Neuro: Alert and oriented x 3, cranial nerves intact Current Medications: Current Medications Sig/Coral Start time Last Medication Dose Route Stop Time Status Admin Acetaminophen 500 MG TID 04/03 1156 AC 05/01 PO 1846 Albuterol Sulfate 3 ML Q4P PRN 04/15 0800 AC 04/24 INH 1039 Alprazolam 0.25 MG ONCE ONE 04/30 2130 DC 04/30 PO 04/30 2131 2145 Amlodipine Besylate 5 MG DAILY 04/03 1200 AC 05/01 PO 0825 Aspirin 81 MG DAILY 04/04 1000 AC 05/01 PO 0825 Dextrose/Sodium 1,000 ML Q13H 05/01 1100 DC 05/01 Chloride IV 1207 Dextrose/Sodium 1,000 ML Q20H 05/01 0000 AC 05/01 Chloride IV 0022 Docusate Sodium 100 MG DAILY NEEDED PRN 04/26 1100 AC 04/26 PO 1204 Fluticasone 2 SPRAY DAILY 04/03 1155 AC 05/01 Propionate THOMAS 0826 Furosemide 40 MG 7:30 AM, & 4:30 PM 05/01 1630 AC IV Furosemide 40 MG 7:30 AM, & 4:30 PM 04/30 1630 DC 04/30 PO 1713 Heparin Sodium 5,000 UNIT Q8 04/15 2200 DC 04/30 (Porcine) SC 05/01 0400 2144 Insulin Aspart 0 TIDAC 05/02 0800 AC SC Insulin Aspart 0 Q4 05/01 0000 DC 05/01 SC 1848 Insulin Aspart 0 TIDAC 04/28 1200 DC 04/30 SC 04/30 2355 1717 Insulin Detemir 7 UNITS BID 04/30 2200 DC 05/01 SC 0821 Metoprolol Succinate 25 MG DAILY 04/03 1714 AC 05/01 PO 0823 Omeprazole 40 MG DAILY AC 04/11 0700 AC 04/30 PO 0554 Polyethylene Glycol 17 GM DAILY 04/21 0830 AC 04/28 PO 1003 Povidone Iodine 1 MEHRAN DAILY 04/13 1000 AC 04/30 TOP 0936 Pregabalin 50 MG TID 04/03 1155 AC 05/01 PO 1848 Senna 187 MG AT BEDTIME 04/25 2200 AC 04/30 PO 2145 Results Last 48 Hrs of Labs/Mics: Laboratory Tests 05/01/17 1800: CBC w Diff Pending, WBC Pending, RBC Pending, Hgb Pending, Hct Pending, MCV Pending, MCH Pending, MCHC Pending, RDW Pending, Plt Count Pending, MPV Pending 05/01/17 0636: Anion Gap 9, Estimated GFR 50 L, BUN/Creatinine Ratio 28.6 H, PT 11.5, INR 1.05, APTT 28, CBC w Diff NO MAN DIFF REQ, RBC 2.66 L, MCV 91.3, MCH 30.1, MCHC 33.0, RDW 16.7 H, MPV 8.1, Gran % 53.3, Lymphocytes % 31.7, Monocytes % 6.1, Eosinophils % 6.8 H, Basophils % 2.1 H, Absolute Granulocytes 3.1, Absolute Lymphocytes 1.8, Absolute Monocytes 0.4, Absolute Eosinophils 0.4, Absolute Basophils 0.1 04/30/17 0650: Anion Gap 8, Estimated GFR 50 L, BUN/Creatinine Ratio 26.4 H, CBC w Diff NO MAN DIFF REQ, RBC 2.64 L, MCV 91.3, MCH 30.4, MCHC 33.3, RDW 16.1 H, MPV 8.1, Gran % 62.7, Lymphocytes % 22.4, Monocytes % 6.4, Eosinophils % 7.0 H, Basophils % 1.5, Absolute Granulocytes 4.1, Absolute Lymphocytes 1.5, Absolute Monocytes 0.4, Absolute Eosinophils 0.5, Absolute Basophils 0.1 Assessment/Plan Assessment/Plan Assessment: 1. Acute hypoxic respiratory failure with acute on chronic HFrEF and slight worsening of dyspnea today 2. Severe PAD 3. Gangrene right LE 4. DM 5. Renal insufficiency. 6. Slightly worsening anemia 7. Elevated troponin Plan: * ContinueLasix to 40 mg p.o. twice daily * Continue other medications * Surgery planned for today; patient should be kept on telemetry post operatively; check followup ECG post op please. Continue telemetry? Yes
[2017-05-01 19:10] LABS: WHITE BLOOD CELL COUNT 9.7 /CUMM (4.8-10.8)
[2017-05-01 22:34] VITALS: BP 134/86
[2017-05-02 07:27] VITALS: BP 142/78
[2017-05-02 08:26] LABS: ABSOLUTE BASOPHIL COUNT 0.1 /CUMM (0.0-0.2); ABSOLUTE EOSINOPHIL COUNT 0.3 /CUMM (0.0-0.7); ABSOLUTE GRANULOCYTE CT 2.7 /CUMM (1.4-6.5); ABSOLUTE LYMPH COUNT 1.1 /CUMM (1.2-3.4); ABSOLUTE MONOCYTE COUNT 0.3 /CUMM (0.10-0.60); BASOPHIL % 2.2 % (0.0-2.0); EOSINOPHIL % 5.8 % (0-5); GRANULOCYTE % 60.4 % (42.2-75.2); HEMATOCRIT 23.8 % (42-52); MEAN CORPUSCULAR HGB 30.6 PG (27.0-31.0); MEAN CORPUSCULAR HGB CONC 33.3 G/DL (33.0-37.0); PLATELET COUNT 497 /CUMM (130-400); RED BLOOD CELL CT 2.59 /CUMM (4.70-6.10)
--- NOTE | 2017-05-02 08:34 | PN- Housestaff ---
Cecile Christie 05/02/17 0834: Subjective Follow-up For: MRSA osteomyelitis Acute hypoxic respiratory failure Severe peripheral vascular disease Right leg gangrene s/p angioplasty and stent Type 1 diabetes Renal insufficiency Subjective: No complaints or acute events overnight Review of Systems Constitutional: Reports: see HPI. Objective Last 24 Hrs of Vital Signs/I&O Vital Signs Date Time Temp Pulse Resp B/P B/P Pulse O2 O2 Flow FiO2 Mean Ox Delivery Rate 05/02 1454 97.9 69 20 120/70 94 Room Air 05/02 1232 134/80 05/02 1232 134/80 05/02 0727 98.7 75 24 142/78 95 Room Air 05/02 0000 Room Air 05/01 2234 97.6 72 24 134/86 95 Intake & Output 05/02 1600 05/02 0800 05/02 0000 Intake Total 240 550 655 Output Total 650 550 Balance 240 -100 105 Intake, IV 400 175 Intake, Oral 240 150 480 Number 1 2 1 Bowel Movements Output, Urine 650 550 Patient 157 lb Weight Physical Exam General Appearance: Alert, Oriented X3, Cooperative, No Acute Distress Cardiovascular: Regular Rate, Normal S1, Normal S2, No Murmurs, Gallops, Rubs Lungs: Clear to Auscultation, Normal Air Movement Extremities: right foot amputation Current Medications: Current Medications Sig/Coral Start time Last Medication Dose Route Stop Time Status Admin Acetaminophen 500 MG TID 04/03 1156 AC 05/02 PO 1710 Albuterol Sulfate 3 ML Q4P PRN 04/15 0800 AC 04/24 INH 1039 Amlodipine Besylate 5 MG DAILY 04/03 1200 AC 05/02 PO 1232 Aspirin 81 MG DAILY 04/04 1000 AC 05/02 PO 1232 Dextrose/Sodium 1,000 ML Q13H 05/01 1100 DC 05/01 Chloride IV 1207 Dextrose/Sodium 1,000 ML Q20H 05/01 0000 DC 05/01 Chloride IV 1943 Docusate Sodium 100 MG DAILY NEEDED PRN 04/26 1100 AC 04/26 PO 1204 Fluticasone 2 SPRAY DAILY 04/03 1155 AC 05/02 Propionate THOMAS 1233 Furosemide 40 MG 7:30 AM, & 4:30 PM 05/01 1630 AC 05/02 IV 1710 Hydralazine HCl 25 MG ONCE ONE 05/02 0300 CAN PO 05/02 0301 Insulin Aspart 0 TIDAC/HS 05/02 1200 AC 05/02 SC 1710 Insulin Aspart 0 TIDAC 05/02 0800 DC SC Insulin Aspart 0 Q4 05/01 0000 DC 05/01 SC 1848 Insulin Detemir 9 UNITS BID 05/02 2200 AC 05/02 SC 1233 Insulin Detemir 7 UNITS BID 05/01 2230 DC 05/01 SC 2230 Insulin Detemir 7 UNITS BID 04/30 2200 DC 05/01 SC 0821 Metoprolol Succinate 25 MG DAILY 04/03 1714 AC 05/02 PO 1232 Omeprazole 40 MG DAILY AC 04/11 0700 AC 04/30 PO 0554 Polyethylene Glycol 17 GM DAILY 04/21 0830 AC 04/28 PO 1003 Povidone Iodine 1 MEHRAN DAILY 04/13 1000 AC 05/02 TOP 1232 Pregabalin 50 MG TID 04/03 1155 AC 05/02 PO 1710 Senna 187 MG AT BEDTIME 04/25 2200 AC 04/30 PO 2145 Last 24 Hrs of Lab/[place] Results Last 24 Hrs of Labs/Mics: Laboratory Tests 05/02/17 0619: Anion Gap 6, Estimated GFR > 60, BUN/Creatinine Ratio 30.9 H, CBC w Diff NO MAN DIFF REQ, RBC 2.59 L, MCV 92.0, MCH 30.6, MCHC 33.3, RDW 17.0 H, MPV 8.0, Gran % 60.4, Lymphocytes % 24.5, Monocytes % 7.1, Eosinophils % 5.8 H, Basophils % 2.2 H, Absolute Granulocytes 2.7, Absolute Lymphocytes 1.1 L, Absolute Monocytes 0.3, Absolute Eosinophils 0.3, Absolute Basophils 0.1 05/02/17 0000: Anion Gap 8, Estimated GFR > 60, BUN/Creatinine Ratio 32.5 H Assessment/Plan Assessment: 71 -year-old gentleman with PMH type I diabetes (complicated by neuropathy, retinopathy and nephropathy), complete heart block status post pacemaker placement, severe PVD, 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 Was transferred to [facility] where he underwent TMA right foot by on 04/14/17. Problem list: MRSA osteomyelitis Acute hypoxic respiratory failure Severe peripheral vascular disease Right leg gangrene s/p angioplasty and stent - POD 1 Type 1 diabetes Renal insufficiency Plan: Change by mouth Lasix 40 mg twice a day Discontinue IVF US-ABD/PELV ORGAN DOPPLER showed no evidence of renal artery stenosis Monitor low white count increase Levemir to 9 units twice a day Problem List: 1. Peripheral vascular disease 2. Osteomyelitis Pain Ratin Pain Location: NA Pain Goal: Remain pain free Pain Plan: NA Tomorrow's Labs & Rationales: CBC to monitor white count BEP to monitor renal function Oren Covarrubias 05/02/17 1405: Attending MD Review Statement Attending Statement Attending MD Statement: examined this patient, discuss w/resident/PA/MOTION PICTURE PHOTOGRAPHER, agreed w/resident/PA/MOTION PICTURE PHOTOGRAPHER, discussed with family, reviewed EMR data (avail), discussed with nursing Attending Assessment/Plan: F/u on renal doppler results. Pts creatinine is better today at 1.1, will dc iv fluids and start back on lasix. Pt underwent angioplasty and stenting on 05/01 of Rt SFA and also had atherectomy and angiopalsty of some other vessels. D/w pt and pts family at bedside the care plan.
[2017-05-02 09:03] LABS: WHITE BLOOD CELL COUNT 4.4 /CUMM (4.8-10.8)
--- NOTE | 2017-05-02 10:56 | PN- Diabetes ---
Assessment/Plan Diabetes Assessment: 70 y/o male, Hx of DM type 1 diagnosed when he was 14 years old. He was on an insulin pump with basal rate running at 0.9 units per hour in the past. His diabetes was complicated by neuropathy, retinopathy, nephropathy. Patient presented to the ED after sustaining an unwitnessed fall. He was admitted for positive troponin with peak troponin of 6.64, ongoing right foot infection and gangrene of 2nd toe and 3rd toe. Right foot TMA was done on 2017. On 05/01/2017, angioplasty and stending were done to his right LE ( SFA and popliteal artery). Currently he is on Levemir 7 units twice a day. Novolog coverage before meals and Novolog coverage at bedtime. His FSGs were 195, 227, 335 and 317. Plan: 1. increase Levemir to 9 units twice a day; 2. continue the current Novolog coverage before meals and Novolog coverage at ebdtime; 3. monitor FSGs. ruben follow. Subjective Subjective: He appears slightly lethargic. Objective Last 24 Hrs of Vital Signs/I&O Vital Signs Date Time Temp Pulse Resp B/P B/P Pulse O2 O2 Flow FiO2 Mean Ox Delivery Rate 05/02 0727 98.7 75 24 142/78 95 Room Air 05/02 0000 Room Air 05/01 2234 97.6 72 24 134/86 95 05/01 1800 99 Nasal 2.0L Cannula 05/01 1133 67 115/52 Intake & Output 05/02 1600 05/02 0800 05/02 0000 Intake Total 550 655 Output Total 650 550 Balance -100 105 Intake, IV 400 175 Intake, Oral 150 480 Number 2 1 Bowel Movements Output, Urine 650 550 Patient 157 lb Weight Findings Pertinent Lab/Fransisco Results: Laboratory Tests 05/02 05/02 0619 0000 Chemistry Sodium (137 - 145 mmol/L) 137 137 Potassium (3.5 - 5.1 mmol/L) 4.6 4.7 Chloride (98 - 107 mmol/L) 98 98 Carbon Dioxide (22 - 30 mmol/L) 32 H 30 Anion Gap (5 - 16) 6 8 BUN (9 - 20 mg/dL) 34 H 39 H Creatinine (0.7 - 1.2 mg/dL) 1.1 1.2 Estimated GFR (>60 ml/min) > 60 > 60 BUN/Creatinine Ratio (7 - 25 %) 30.9 H 32.5 H Hematology CBC w Diff NO MAN DIFF REQ WBC (4.8 - 10.8 /CUMM) 4.4 L RBC (4.70 - 6.10 /CUMM) 2.59 L Hgb (14.0 - 18.0 G/DL) 7.9 L Hct (42 - 52 %) 23.8 L MCV (80.0 - 94.0 FL) 92.0 MCH (27.0 - 31.0 PG) 30.6 MCHC (33.0 - 37.0 G/DL) 33.3 RDW (11.5 - 14.5 %) 17.0 H Plt Count (130 - 400 /CUMM) 497 H MPV (7.4 - 10.4 FL) 8.0 Gran % (42.2 - 75.2 %) 60.4 Lymphocytes % (20.5 - 51.1 %) 24.5 Monocytes % (1.7 - 9.3 %) 7.1 Eosinophils % (0 - 5 %) 5.8 H Basophils % (0.0 - 2.0 %) 2.2 H Absolute Granulocytes (1.4 - 6.5 /CUMM) 2.7 Absolute Lymphocytes (1.2 - 3.4 /CUMM) 1.1 L Absolute Monocytes (0.10 - 0.60 /CUMM) 0.3 Absolute Eosinophils (0.0 - 0.7 /CUMM) 0.3 Absolute Basophils (0.0 - 0.2 /CUMM) 0.1 03/09 1800 Hematology CBC w Diff NO MAN DIFF REQ WBC (4.8 - 10.8 /CUMM) 9.7 RBC (4.70 - 6.10 /CUMM) 2.82 L Hgb (14.0 - 18.0 G/DL) 8.6 L Hct (42 - 52 %) 25.9 L MCV (80.0 - 94.0 FL) 91.8 MCH (27.0 - 31.0 PG) 30.4 MCHC (33.0 - 37.0 G/DL) 33.1 RDW (11.5 - 14.5 %) 16.8 H Plt Count (130 - 400 /CUMM) 545 H MPV (7.4 - 10.4 FL) 8.2 Gran % (42.2 - 75.2 %) 76.4 H Lymphocytes % (20.5 - 51.1 %) 14.9 L Monocytes % (1.7 - 9.3 %) 5.4 Eosinophils % (0 - 5 %) 2.4 Basophils % (0.0 - 2.0 %) 0.9 Absolute Granulocytes (1.4 - 6.5 /CUMM) 7.4 H Absolute Lymphocytes (1.2 - 3.4 /CUMM) 1.4 Absolute Monocytes (0.10 - 0.60 /CUMM) 0.5 Absolute Eosinophils (0.0 - 0.7 /CUMM) 0.2 Absolute Basophils (0.0 - 0.2 /CUMM) 0.1
[2017-05-02 14:54] VITALS: BP 120/70
--- NOTE | 2017-05-02 15:00 | ULTRASOUND REPORT ---
EXAMINATION: RENAL ARTERY DOPPLER ULTRASOUND CLINICAL INFORMATION: Worsening renal function. History of type 1 diabetes, PVD. COMPARISON: CT abdomen and pelvis 04/03/2017, renal ultrasound 04/06/2017 TECHNIQUE: Renal ultrasound. Doppler ultrasound (spectral analysis and color Doppler) of the renal arteries and aorta were performed. FINDINGS: The right kidney measures 11.6 cm x 5.0 cm x 5.5 cm in sagittal, AP and transverse dimensions. The left kidney measures 12.3 cm x 5.0 cm x 5.1 cm in sagittal, AP and transverse dimensions. The kidneys show no masses, calculi or hydronephrosis. The corticomedullary differentiation is normal. RENAL ARTERY VELOCITIES: Right: Proximally: 127/17 cm/s. Mid: 109/19 cm/s. Distal: 44/7 cm/s. Left: Proximally: Not visualized due to overlying bowel gas. Mid: 81/12 cm/s. Distally: 75/12 cm/s. The aortic velocity is 147/21 cm/s. The renal aortic ratio is 0.9 on the right and 0.6 on the left. These values are within normal limits. IMPRESSION: 1. The kidneys are normal in appearance. 2. There is no evidence of renal artery stenosis. Note, the proximal left renal artery is not visualized due to overlying bowel gas.
--- NOTE | 2017-05-02 16:23 | PN- Cardiology ---
Subjective Subjective: * Patient denies any complaints. He is confused and was talking to someone on the TV controller. * 100% paced rhythm * severe anemia with downward trend Objective Vital Signs and I&Os Vital Signs Date Time Temp Pulse Resp B/P B/P Pulse O2 O2 Flow FiO2 Mean Ox Delivery Rate 05/02 1454 97.9 69 20 120/70 94 Room Air 05/02 1232 134/80 05/02 1232 134/80 05/02 0727 98.7 75 24 142/78 95 Room Air 05/02 0000 Room Air 05/01 2234 97.6 72 24 134/86 95 05/01 1800 99 Nasal 2.0L Cannula Intake & Output 05/02 1600 05/02 0800 05/02 0000 05/01 1600 05/01 0800 05/01 0000 Intake Total 240 550 655 300 480 Output Total 650 550 600 Balance 240 -100 105 -300 480 Intake, IV 400 175 300 Intake, Oral 240 150 480 0 480 Number 1 2 1 Bowel Movements Output, Urine 650 550 600 Patient 157 lb 154 lb 157 lb Weight Weight Bed scale Measurement Method Physical Exam: General: WD/WN male in NAD; awake and confused Heart: RRR w/o murmur Lungs: clear bilaterally Extremities: both feet bandages and status post amputations, no edema Assessment/Plan Assessment/Plan * Doing well from a cardiac standpoint. No clinical evidence of CHF. Change Lasix to 40mg PO BID. Continue telemetry? Yes
[2017-05-02 21:00] VITALS: BP 160/90
[2017-05-03 07:30] VITALS: BP 178/52
[2017-05-03 07:52] LABS: ABSOLUTE BASOPHIL COUNT 0.1 /CUMM (0.0-0.2); ABSOLUTE EOSINOPHIL COUNT 0.5 /CUMM (0.0-0.7); ABSOLUTE GRANULOCYTE CT 2.7 /CUMM (1.4-6.5); ABSOLUTE LYMPH COUNT 1.6 /CUMM (1.2-3.4); ABSOLUTE MONOCYTE COUNT 0.5 /CUMM (0.10-0.60); BASOPHIL % 1.9 % (0.0-2.0); EOSINOPHIL % 9.1 % (0-5); GRANULOCYTE % 50.7 % (42.2-75.2); HEMATOCRIT 24.7 % (42-52); MEAN CORPUSCULAR HGB 30.4 PG (27.0-31.0); MEAN CORPUSCULAR HGB CONC 33.1 G/DL (33.0-37.0); PLATELET COUNT 466 /CUMM (130-400); RED BLOOD CELL CT 2.69 /CUMM (4.70-6.10); WHITE BLOOD CELL COUNT 5.4 /CUMM (4.8-10.8)
--- NOTE | 2017-05-03 09:01 | PN- Diabetes ---
Assessment/Plan Diabetes Assessment: 70 y/o male, Hx of DM type 1 diagnosed when he was 14 years old. He was on an insulin pump with basal rate running at 0.9 units per hour in the past. His diabetes was complicated by neuropathy, retinopathy, nephropathy. Patient presented to the ED after sustaining an unwitnessed fall. He was admitted for positive troponin with peak troponin of 6.64, ongoing right foot infection and gangrene of 2nd toe and 3rd toe. Right foot TMA was done on 2017. On 05/01/2017, angioplasty and stending were done to his right LE ( SFA and popliteal artery). Currently he is on Levemir 9 units twice a day. Novolog coverage before meals and Novolog coverage at bedtime. His FSGs were 327, 220, 169 and 101. Plan: continue the current insulin regimen for now; monitor FSGs. will follow. Subjective Subjective: He feels okay this morning. Objective Last 24 Hrs of Vital Signs/I&O Vital Signs Date Time Temp Pulse Resp B/P B/P Pulse O2 O2 Flow FiO2 Mean Ox Delivery Rate 05/03 0730 98.5 71 20 178/52 96 Room Air 05/03 0551 68 190/82 05/02 2219 98.3 67 20 97 Room Air 05/02 2100 67 160/90 05/02 2049 99.4 67 24 96 Room Air 05/02 1600 94 Room Air 05/02 1454 97.9 69 20 120/70 94 Room Air 05/02 1232 134/80 05/02 1232 134/80 Intake & Output 05/03 1600 05/03 0800 05/03 0000 Intake Total 246 500 Output Total 450 375 Balance -204 125 Intake, IV 10 Intake, Oral 236 500 Number 1 Bowel Movements Output, Urine 450 375 Patient 155 lb Weight Weight Bed scale Measurement Method Findings Pertinent Lab/Fransisco Results: Laboratory Tests 05/03 0625 Chemistry Sodium (137 - 145 mmol/L) 139 Potassium (3.5 - 5.1 mmol/L) 4.2 Chloride (98 - 107 mmol/L) 101 Carbon Dioxide (22 - 30 mmol/L) 32 H Anion Gap (5 - 16) 6 BUN (9 - 20 mg/dL) 32 H Creatinine (0.7 - 1.2 mg/dL) 1.2 Estimated GFR (>60 ml/min) > 60 BUN/Creatinine Ratio (7 - 25 %) 26.7 H Hematology CBC w Diff NO MAN DIFF REQ WBC (4.8 - 10.8 /CUMM) 5.4 RBC (4.70 - 6.10 /CUMM) 2.69 L Hgb (14.0 - 18.0 G/DL) 8.2 L Hct (42 - 52 %) 24.7 L MCV (80.0 - 94.0 FL) 92.0 MCH (27.0 - 31.0 PG) 30.4 MCHC (33.0 - 37.0 G/DL) 33.1 RDW (11.5 - 14.5 %) 17.0 H Plt Count (130 - 400 /CUMM) 466 H MPV (7.4 - 10.4 FL) 8.0 Gran % (42.2 - 75.2 %) 50.7 Lymphocytes % (20.5 - 51.1 %) 29.2 Monocytes % (1.7 - 9.3 %) 9.1 Eosinophils % (0 - 5 %) 9.1 H Basophils % (0.0 - 2.0 %) 1.9 Absolute Granulocytes (1.4 - 6.5 /CUMM) 2.7 Absolute Lymphocytes (1.2 - 3.4 /CUMM) 1.6 Absolute Monocytes (0.10 - 0.60 /CUMM) 0.5 Absolute Eosinophils (0.0 - 0.7 /CUMM) 0.5 Absolute Basophils (0.0 - 0.2 /CUMM) 0.1
--- NOTE | 2017-05-03 09:24 | PN- Housestaff ---
Román LOZANO,[facility] 05/03/17 0924: Subjective Follow-up For: MRSA osteomyelitis Acute hypoxic respiratory failure Severe peripheral vascular disease Right leg gangrene s/p angioplasty and stent Type 1 diabetes Renal insufficiency Tele-Events Since Last Visit: Sinus Pacing Heart rate 60-75 Overnight events noted. Subjective: Patient's right foot has serous non bloody discharge from the surgical site, patient denies any pain or tenderness to touch and had normal sensation(was able to feel the touch). Review of Systems Constitutional: Reports: no symptoms. EENTM: Reports: no symptoms. Cardiovascular: Reports: no symptoms. Respiratory: Reports: no symptoms. Gastrointestinal: Reports: no symptoms. Genitourinary: Reports: no symptoms. Musculoskeletal: Reports: no symptoms. Skin: Reports: no symptoms. Neurological/Psychological: Reports: no symptoms. Hematologic/Endocrine: Reports: no symptoms. Immunologic/Allergic: Reports: no symptoms. Objective Last 24 Hrs of Vital Signs/I&O Vital Signs Date Time Temp Pulse Resp B/P B/P Pulse O2 O2 Flow FiO2 Mean Ox Delivery Rate 05/03 1500 98.2 70 20 132/50 96 Room Air 05/03 1021 68 160/90 05/03 0730 98.5 71 20 178/52 96 Room Air 05/03 0551 68 190/82 05/02 2219 98.3 67 20 97 Room Air 05/02 2100 67 160/90 05/02 2049 99.4 67 24 96 Room Air Intake & Output 05/03 1600 05/03 0800 05/03 0000 Intake Total 400 246 500 Output Total 450 450 375 Balance -50 -204 125 Intake, IV 10 Intake, Oral 400 236 500 Number 1 Bowel Movements Output, Urine 450 450 375 Patient 155 lb Weight Weight Bed scale Measurement Method Physical Exam General Appearance: Alert, Oriented X3, Cooperative, No Acute Distress Skin: No Rashes, No Breakdown Cardiovascular: Normal S1, Normal S2 Lungs: Normal Air Movement Abdomen: Normal Bowel Sounds, Soft, No Tenderness Extremities: right foot with nonbloody serous discharge from the surgical site Current Medications: Current Medications Sig/Coral Start time Last Medication Dose Route Stop Time Status Admin Acetaminophen 500 MG TID 04/03 1156 AC 05/03 PO 1017 Albuterol Sulfate 3 ML Q4P PRN 04/15 0800 AC 04/24 INH 1039 Amlodipine Besylate 5 MG DAILY 04/03 1200 AC 05/03 PO 0551 Aspirin 81 MG DAILY 04/04 1000 AC 05/03 PO 1019 Docusate Sodium 100 MG DAILY NEEDED PRN 04/26 1100 AC 04/26 PO 1204 Fluticasone 2 SPRAY DAILY 04/03 1155 AC 05/03 Propionate THOMAS 1019 Furosemide 40 MG 0730,1630 05/03 0730 AC 05/03 PO 1018 Furosemide 40 MG 7:30 AM, & 4:30 PM 05/01 1630 DC 05/02 IV 1710 Insulin Aspart 0 TIDAC/HS 05/02 1200 AC 05/03 SC 1245 Insulin Detemir 9 UNITS BID 05/02 2200 AC 05/03 SC 1019 Metoprolol Succinate 25 MG DAILY 04/03 1714 AC 05/03 PO 1021 Omeprazole 40 MG DAILY AC 04/11 0700 AC 05/03 PO 0523 Polyethylene Glycol 17 GM DAILY 04/21 0830 AC 05/03 PO 1020 Povidone Iodine 1 MEHRAN DAILY 04/13 1000 AC 05/03 TOP 1246 Pregabalin 50 MG TID 04/03 1155 AC 05/03 PO 1020 Senna 187 MG AT BEDTIME 04/25 2200 AC 05/02 PO 2107 Last 24 Hrs of Lab/Fransisco Results Last 24 Hrs of Labs/Mics: Laboratory Tests 05/03/17 0625: Anion Gap 6, Estimated GFR > 60, BUN/Creatinine Ratio 26.7 H, CBC w Diff NO MAN DIFF REQ, RBC 2.69 L, MCV 92.0, MCH 30.4, MCHC 33.1, RDW 17.0 H, MPV 8.0, Gran % 50.7, Lymphocytes % 29.2, Monocytes % 9.1, Eosinophils % 9.1 H, Basophils % 1.9, Absolute Granulocytes 2.7, Absolute Lymphocytes 1.6, Absolute Monocytes 0.5 , Absolute Eosinophils 0.5, Absolute Basophils 0.1 Assessment/Plan Assessment: 71 -year-old gentleman with PMH type I diabetes (complicated by neuropathy, retinopathy and nephropathy), complete heart block status post pacemaker placement, severe PVD, 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 Was transferred to [facility] where he underwent TMA right foot by on 04/14/17. Problem list: MRSA osteomyelitis Acute hypoxic respiratory failure Severe peripheral vascular disease Right leg gangrene s/p angioplasty and stent - POD 1 Type 1 diabetes Renal insufficiency Plan: - Continue to monitor her off antibiotics. Consider reevaluation by vascular surgery for the right foot serous discharge/ infection? - Blood pressure was 190/82 this morning, down to 132/50 after receiving blood pressure medications and Lasix, will continue to monitor. - Continue by mouth Lasix 40 mg twice a day - US-ABD/PELV ORGAN DOPPLER 05/03/17 showed no evidence of renal artery stenosis - Continue current insulin regimen. DVT prophylaxis; subcutaneous heparin Patient is DNR/DNI Problem List: 1. Osteomyelitis 2. Peripheral vascular disease Pain Ratin Pain Location: None Pain Goal: Remain pain free Pain Plan: Pain Pathway Tomorrow's Labs & Rationales: None Oren Covarrubias 05/03/17 1453: Attending MD Review Statement Attending Statement Attending MD Statement: examined this patient, discuss w/resident/PA/SKI PRODUCTION SUPERVISOR, agreed w/resident/PA/SKI PRODUCTION SUPERVISOR, discussed with family, reviewed EMR data (avail), discussed with nursing Attending Assessment/Plan: Pt had some high BP today morning, if stays high will adjust his bp meds. Cr 1.2. Blood sugar ok. Will check with cardio if ok to dc telemetry then will transfer back to [facility].
[2017-05-03 15:00] VITALS: BP 132/50; BP 144/70
[2017-05-03 22:54] VITALS: BP 130/70
[2017-05-04 07:07] VITALS: BP 160/70
--- NOTE | 2017-05-04 07:07 | PN- Housestaff ---
Rahel LOZANO,Jo 05/04/17 0706: Subjective Follow-up For: MRSA osteomyelitis Acute hypoxic respiratory failure Severe peripheral vascular disease Right leg gangrene s/p angioplasty and stent Type 1 diabetes Renal insufficiency Complaints: no complaints Tele-Events Since Last Visit: S2 pacing, 6370, QRS 0.14, PVCs Subjective: The patient is seen and examined at bedside, he denies any complaint, was noticed to have mild serosanguineous discharge from his right foot wound Review of Systems Constitutional: Reports: see HPI. Objective Last 24 Hrs of Vital Signs/I&O Vital Signs Date Time Temp Pulse Resp B/P B/P Pulse O2 O2 Flow FiO2 Mean Ox Delivery Rate 05/04 0947 97.7 67 20 160/70 05/04 0946 97.7 67 160/70 05/04 0707 97.7 67 20 160/70 97 Room Air 05/03 2254 98.5 66 20 130/70 96 Room Air 05/03 1600 96 Room Air 05/03 1500 98.2 70 20 132/50 96 Room Air Intake & Output 05/04 1600 05/04 0800 05/04 0000 Intake Total 60 600 Output Total 2300 500 Balance -2240 100 Intake, Oral 60 600 Output, Urine 2300 500 Patient 155 lb Weight Weight Bed scale Measurement Method Physical Exam General Appearance: Alert, Cooperative, No Acute Distress HEENT: Atraumatic, PERRLA, EOMI, Mucous Membr. 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 Was transferred to [facility] where he underwent TMA right foot by on 04/14/17. Problem list: MRSA osteomyelitis Acute hypoxic respiratory failure Severe peripheral vascular disease Right leg gangrene s/p angioplasty and stent - POD 1 Type 1 diabetes Renal insufficiency Plan: - Continue to monitor her off antibiotics. -Consider reevaluation by vascular surgery for the right foot serous discharge/ infection? - Continue by mouth Lasix 40 mg twice a day -continue metoprolol 25 mg daily - Continue current insulin regimen (Levemir 9 units twice daily and insulin sliding scale DVT prophylaxis; subcutaneous heparin Patient is DNR/DNI Problem List: 1. Osteomyelitis 2. Peripheral vascular disease 3. PARRIS (acute kidney injury) Pain Ratin Pain Location: N/a Pain Goal: Remain pain free Pain Plan: PATHWAY Tomorrow's Labs & Rationales: CBC,BEP DVT/Prophylaxis: mechanical, pharmacological Oren Covarrubias 05/04/17 1811: Attending MD Review Statement Attending Statement Attending MD Statement: examined this patient, discuss w/resident/PA/RETAIL LEASING AGENT, agreed w/resident/PA/RETAIL LEASING AGENT, reviewed EMR data (avail), discussed with nursing, discussed with case mgmt Attending Assessment/Plan: d/w id attending. cont to monitor off abx. pt has no new complaints. will d/w vascular and podiatry about the timing for BKA. Pt is stable from cardiac standpoint for transfer to medical floor. d/w pt the care plan.
--- NOTE | 2017-05-04 08:16 | PN- Diabetes ---
Assessment/Plan Diabetes Assessment: 70 y/o male, Hx of DM type 1 diagnosed when he was 14 years old. He was on an insulin pump with basal rate running at 0.9 units per hour in the past. His diabetes was complicated by neuropathy, retinopathy, nephropathy. Patient presented to the ED after sustaining an unwitnessed fall. He was admitted for positive troponin with peak troponin of 6.64, ongoing right foot infection and gangrene of 2nd toe and 3rd toe. Right foot TMA was done on 2017. On 05/01/2017, angioplasty and stending were done to his right LE ( SFA and popliteal artery). Currently he is on Levemir 9 units twice a day. Novolog coverage before meals and Novolog coverage at bedtime. His FSGs were 101, 288, 263, 138. Plan: continue the current insulin regimen for now; monitor FSGs. will follow. Subjective Subjective: He feels okay this morning. Objective Last 24 Hrs of Vital Signs/I&O Vital Signs Date Time Temp Pulse Resp B/P B/P Pulse O2 O2 Flow FiO2 Mean Ox Delivery Rate 05/04 0707 97.7 67 20 160/70 97 Room Air 05/03 2254 98.5 66 20 130/70 96 Room Air 05/03 1600 96 Room Air 05/03 1500 98.2 70 20 132/50 96 Room Air 05/03 1021 68 160/90 Intake & Output 05/04 1600 05/04 0800 05/04 0000 Intake Total 60 600 Output Total 2300 500 Balance -2240 100 Intake, Oral 60 600 Output, Urine 2300 500 Patient 155 lb Weight Weight Bed scale Measurement Method
--- NOTE | 2017-05-04 09:09 | PN- Cardiology ---
Subjective Subjective: The patient is awake and alert, he is off oxygen. He has no complaints today. He does not seem overly confused. He remains pacing on the monitor. He was transferred to telemetry last week because of syncopal episode but has not had any further episodes. He does not appear to be in CHF. Objective Vital Signs and I&Os Vital Signs Date Time Temp Pulse Resp B/P B/P Pulse O2 O2 Flow FiO2 Mean Ox Delivery Rate 05/04 0607 97.7 67 20 160/70 97 Room Air 05/03 2254 98.5 66 20 130/70 96 Room Air 05/03 1600 96 Room Air 05/03 1500 98.2 70 20 132/50 96 Room Air 05/03 1021 68 160/90 Intake & Output 05/04 1600 05/04 0800 05/04 0000 05/03 1600 05/03 0800 05/03 0000 Intake Total 60 600 400 246 500 Output Total 2300 500 450 450 375 Balance -2240 100 -50 -204 125 Intake, IV 10 Intake, Oral 60 600 400 236 500 Number 1 Bowel Movements Output, Urine 2300 500 450 450 375 Patient 155 lb 155 lb Weight Weight Bed scale Bed scale Measurement Method Physical Exam: He is in no distress HEENT exam normal Chest clear Heart regular rhythm, soft heart sounds Extremities both feet wrapped Current Medications: Current Medications Sig/Coral Start time Last Medication Dose Route Stop Time Status Admin Acetaminophen 500 MG TID 04/03 1156 AC 05/03 PO 2154 Albuterol Sulfate 3 ML Q4P PRN 04/15 0800 AC 04/24 INH 1039 Amlodipine Besylate 5 MG DAILY 04/03 1200 AC 05/03 PO 0551 Aspirin 81 MG DAILY 04/04 1000 AC 05/03 PO 1019 Docusate Sodium 100 MG DAILY NEEDED PRN 04/26 1100 AC 04/26 PO 1204 Fluticasone 2 SPRAY DAILY 04/03 1155 AC 05/03 Propionate THOMAS 1019 Furosemide 40 MG 0730,1630 05/03 0730 AC 05/04 PO 0851 Insulin Aspart 0 TIDAC/HS 05/02 1200 AC 05/04 SC 0851 Insulin Detemir 9 UNITS BID 05/02 2200 AC 05/03 SC 2152 Metoprolol Succinate 25 MG DAILY 04/03 1714 AC 05/03 PO 1021 Omeprazole 40 MG DAILY AC 04/11 0700 AC 03/12 PO 0634 Polyethylene Glycol 17 GM DAILY 04/21 0830 AC 05/03 PO 1020 Povidone Iodine 1 MEHRAN DAILY 04/13 1000 AC 05/03 TOP 1246 Pregabalin 50 MG TID 04/03 1155 AC 05/03 PO 2153 Senna 187 MG AT BEDTIME 04/25 2200 AC 05/03 PO 2154 Results Last 48 Hrs of Labs/Mics: Laboratory Tests 05/04/17 0820: Sodium Pending, Potassium Pending, Chloride Pending, Carbon Dioxide Pending, Anion Gap Pending, BUN Pending, Creatinine Pending, BUN/Creatinine Ratio Pending , CBC w Diff Pending, WBC Pending, RBC Pending, Hgb Pending, Hct Pending, MCV Pending, MCH Pending, MCHC Pending, RDW Pending, Plt Count Pending, MPV Pending 05/03/17 0625: Anion Gap 6, Estimated GFR > 60, BUN/Creatinine Ratio 26.7 H, CBC w Diff NO MAN DIFF REQ, RBC 2.69 L, MCV 92.0, MCH 30.4, MCHC 33.1, RDW 17.0 H, MPV 8.0, Gran % 50.7, Lymphocytes % 29.2, Monocytes % 9.1, Eosinophils % 9.1 H, Basophils % 1.9, Absolute Granulocytes 2.7, Absolute Lymphocytes 1.6, Absolute Monocytes 0.5 , Absolute Eosinophils 0.5, Absolute Basophils 0.1 Assessment/Plan Assessment/Plan The patient appears stable from a cardiac standpoint. There does not appear to be anything active going on. I recommend just a follow-up chest x-ray because of previous pulmonary edema. The patient can be transferred back to general medicine and probably discharged soon to rehabilitation. Continue telemetry? No
[2017-05-04 09:48] LABS: ABSOLUTE BASOPHIL COUNT 0.1 /CUMM (0.0-0.2); ABSOLUTE EOSINOPHIL COUNT 0.4 /CUMM (0.0-0.7); ABSOLUTE GRANULOCYTE CT 3.5 /CUMM (1.4-6.5); ABSOLUTE LYMPH COUNT 1.4 /CUMM (1.2-3.4); ABSOLUTE MONOCYTE COUNT 0.4 /CUMM (0.10-0.60); BASOPHIL % 1.9 % (0.0-2.0); GRANULOCYTE % 59.5 % (42.2-75.2); HEMATOCRIT 27.2 % (42-52); MEAN CORPUSCULAR HGB 30.2 PG (27.0-31.0); MEAN CORPUSCULAR HGB CONC 32.5 G/DL (33.0-37.0); MEAN CORPUSCULAR VOLUME 93.1 FL (80.0-94.0); MEAN PLATELET VOLUME 8.2 FL (7.4-10.4); PLATELET COUNT 430 /CUMM (130-400); RBC DISTRIBUTION WIDTH 17.1 % (11.5-14.5); RED BLOOD CELL CT 2.92 /CUMM (4.70-6.10); WHITE BLOOD CELL COUNT 5.8 /CUMM (4.8-10.8)
--- NOTE | 2017-05-04 11:13 | PN- Infect Dx ---
Subjective Subjective: Afebrile without complaints Objective Last 24 Hrs of Vital Signs/I&O Vital Signs Date Time Temp Pulse Resp B/P B/P Pulse O2 O2 Flow FiO2 Mean Ox Delivery Rate 05/04 0947 97.7 67 20 160/70 05/04 0946 97.7 67 160/70 05/04 0707 97.7 67 20 160/70 97 Room Air 05/03 2254 98.5 66 20 130/70 96 Room Air 05/03 1600 96 Room Air 05/03 1500 98.2 70 20 132/50 96 Room Air Intake & Output 05/04 1600 05/04 0800 05/04 0000 Intake Total 60 600 Output Total 2300 500 Balance -2240 100 Intake, Oral 60 600 Output, Urine 2300 500 Patient 155 lb Weight Weight Bed scale Measurement Method Physical Exam Other Physical Findings: He appears comfortable in no acute distress Lungs decreased breath sounds both bases Heart regular rhythm with no murmur Extremities right foot TMA site necrotic edges, with a palpable pulse; discoloration over the dorsal aspect of the left fourth and fifth toes, with a palpable pulse; left heel necrotic decubitus Results Last 24 Hours of Lab Results: Laboratory Tests 05/04 0820 Chemistry Sodium (137 - 145 mmol/L) 138 Potassium (3.5 - 5.1 mmol/L) 4.5 Chloride (98 - 107 mmol/L) 99 Carbon Dioxide (22 - 30 mmol/L) 31 H Anion Gap (5 - 16) 7 BUN (9 - 20 mg/dL) 30 H Creatinine (0.7 - 1.2 mg/dL) 1.2 Estimated GFR (>60 ml/min) > 60 BUN/Creatinine Ratio (7 - 25 %) 25.0 Hematology CBC w Diff NO MAN DIFF REQ WBC (4.8 - 10.8 /CUMM) 5.8 RBC (4.70 - 6.10 /CUMM) 2.92 L Hgb (14.0 - 18.0 G/DL) 8.8 L Hct (42 - 52 %) 27.2 L MCV (80.0 - 94.0 FL) 93.1 MCH (27.0 - 31.0 PG) 30.2 MCHC (33.0 - 37.0 G/DL) 32.5 L RDW (11.5 - 14.5 %) 17.1 H Plt Count (130 - 400 /CUMM) 430 H MPV (7.4 - 10.4 FL) 8.2 Gran % (42.2 - 75.2 %) 59.5 Lymphocytes % (20.5 - 51.1 %) 24.2 Monocytes % (1.7 - 9.3 %) 7.4 Eosinophils % (0 - 5 %) 7.0 H Basophils % (0.0 - 2.0 %) 1.9 Absolute Granulocytes (1.4 - 6.5 /CUMM) 3.5 Absolute Lymphocytes (1.2 - 3.4 /CUMM) 1.4 Absolute Monocytes (0.10 - 0.60 /CUMM) 0.4 Absolute Eosinophils (0.0 - 0.7 /CUMM) 0.4 Absolute Basophils (0.0 - 0.2 /CUMM) 0.1 Last 24 Hours of [place] Results: No new cultures Assessment/Plan ID Impression: Stable, status post bilateral lower extremity angiogram 3 days ago, with atherectomy, angioplasty and stenting of the distal right SFA, angioplasty of the right popliteal artery and angioplasty of the mid right SFA. 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 His left foot also has evidence of ischemic changes and may warrant further evaluation. Suggestion: 1. Vascular surgery follow-up regarding possible right BKA and evaluation of the left foot 2. Continue to follow off antibiotics pending above
[2017-05-04 15:13] VITALS: BP 140/60
[2017-05-04 21:32] VITALS: BP 110/65
--- NOTE | 2017-05-05 07:04 | PN- Housestaff ---
Kimberly LOZANO,Dalia 05/05/17 0703: Subjective Follow-up For: Osteomyelitis, diabetes acute hypoxic respiratory failure-resolved. Complaints: no complaints Subjective: Patient seen and examined at bedside today. Patient says he slept well overnight. No overnight events. He denies pain in his both legs, decreased sensation, tingling/numbness, chest pain, shortness of breath. Review of Systems Constitutional: Reports: no symptoms. Cardiovascular: Reports: no symptoms. Respiratory: Reports: no symptoms. Gastrointestinal: Reports: no symptoms. Genitourinary: Reports: no symptoms. Objective Last 24 Hrs of Vital Signs/I&O Vital Signs Date Time Temp Pulse Resp B/P B/P Pulse O2 O2 Flow FiO2 Mean Ox Delivery Rate 05/05 0849 78 126/68 05/05 0849 78 126/68 05/05 0709 99.1 78 18 126/68 97 Room Air 05/04 2132 98.1 67 20 110/65 96 05/04 1513 97.3 60 20 140/60 96 Room Air Intake & Output 05/05 1600 05/05 0800 05/05 0000 Intake Total 240 240 Output Total Balance 240 240 Intake, Oral 240 240 Patient 145 lb Weight Physical Exam General Appearance: Alert, Oriented X3, Cooperative, No Acute Distress Skin: No Rashes, No Breakdown HEENT: Atraumatic, PERRLA, EOMI Neck: Supple, No JVD, No thryomegaly Cardiovascular: Regular Rate, Normal S1, Normal S2, No Murmurs Lungs: Clear to Auscultation, Normal Air Movement Abdomen: Normal Bowel Sounds, Soft, No Tenderness, No Hepatospenomegaly Neurological: Normal Speech, Strength at 5/5 X4 Ext, Normal Tone, Sensation Intact Extremities: RIGHT FOOT-DRESSING DONE STILL OOZING. Current Medications: Current Medications Sig/Coral Start time Last Medication Dose Route Stop Time Status Admin Acetaminophen 500 MG TID 04/03 1156 AC 05/05 PO 0848 Albuterol Sulfate 3 ML Q4P PRN 04/15 0800 AC 04/24 INH 1039 Amlodipine Besylate 5 MG DAILY 04/03 1200 AC 05/05 PO 0849 Aspirin 81 MG DAILY 04/04 1000 AC 05/05 PO 0848 Docusate Sodium 100 MG DAILY NEEDED PRN 04/26 1100 AC 04/26 PO 1204 Fluticasone 2 SPRAY DAILY 04/03 1155 AC 05/05 Propionate THOMAS 0906 Furosemide 40 MG 0730,1630 05/03 0730 AC 05/05 PO 0951 Heparin Sodium 5,000 UNIT Q8 05/04 1400 AC 05/05 (Porcine) SC 1310 Insulin Aspart 0 TIDAC/HS 05/02 1200 AC 05/05 SC 1200 Insulin Detemir 10 UNITS BID 05/05 1000 AC 05/05 SC 0904 Insulin Detemir 9 UNITS BID 05/02 2200 DC 05/04 SC 2149 Metoprolol Succinate 25 MG DAILY 04/03 1714 AC 05/05 PO 0849 Omeprazole 40 MG DAILY AC 04/11 0700 AC 05/05 PO 0520 Polyethylene Glycol 17 GM DAILY 04/21 0830 AC 05/05 PO 0852 Povidone Iodine 1 MEHRAN DAILY 04/13 1000 AC 05/05 TOP 0852 Pregabalin 50 MG TID 04/03 1155 AC 05/05 PO 0902 Senna 187 MG AT BEDTIME 04/25 2200 AC 05/04 PO 2149 Last 24 Hrs of Lab/[place] Results Last 24 Hrs of Labs/Mics: Laboratory Tests 05/05/17 0715: Anion Gap 9, Estimated GFR > 60, BUN/Creatinine Ratio 28.3 H, CBC w Diff NO MAN DIFF REQ, RBC 2.94 L, MCV 91.6, MCH 30.8, MCHC 33.7, RDW 17.6 H, MPV 8.2, Gran % 74.5, Lymphocytes % 14.8 L, Monocytes % 7.0, Eosinophils % 2.9, Basophils % 0.8, Absolute Granulocytes 6.3, Absolute Lymphocytes 1.2, Absolute Monocytes 0.6 , Absolute Eosinophils 0.2, Absolute Basophils 0.1 Assessment/Plan Assessment: 71 -year-old gentleman with PMH type I diabetes (complicated by neuropathy, retinopathy and nephropathy), complete heart block status post pacemaker placement, severe PVD, 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 Was transferred to [facility] where he underwent TMA right foot by on 04/14/17. Patient had a angioplasty and stenting of his right distal superficial femoral artery, angioplasty of his right popliteal artery and mid right superficial femoral artery on 05/02/2007. Problem list: MRSA osteomyelitis Acute hypoxic respiratory failure- resolved Severe peripheral vascular disease Right leg gangrene s/p angioplasty and stent - POD 4 Type 1 diabetes Renal insufficiency Assessment and plan: * Patient is off antibiotics. Patient will be seen by vascular surgery and podiatry for further evaluation of BKA. Dressing needs to be changed today. We will talk to the family regarding further plan for surgery [BKA] and also will follow-up with podiatry and vascular surgery. * We will continue his Lasix 40 twice a day, metoprolol 25 daily, amlodipine 5 mg, aspirin 81, Lyrica 50 mg 3 times a day, Prilosec 40 and Levemir 10 units twice a day with a sliding scale. Patient is saturating 95 on room air. His vitals are stable. DVT prophylaxis-subcutaneous heparin Code-DNR/DNI Problem List: 1. Osteomyelitis 2. Diabetes Pain Ratin Pain Location: none Pain Goal: Remain pain free Pain Plan: Tylenoltylenol Tomorrow's Labs & Rationales: cbc,bep Jeff Haas 05/05/17 1139: Attending MD Review Statement Attending Statement Attending MD Statement: examined this patient, discuss w/resident/PA/ARTIST WOODBLOCK, agreed w/resident/PA/ARTIST WOODBLOCK, discussed with family, reviewed EMR data (avail), discussed with nursing, discussed with case mgmt, reviewed images, amended to note Attending Assessment/Plan: Patient transferred from telemetry to [facility] s/p angiogram and stent placement in [facility] alongwith atherctomy and angioplasty. His creatinnie is stable. He is on room air with PO lasix toalreting well. F/u vascular surgery about timing of BKA if needed. Continue wound care as per podiatry of [facility]. Monitor off abx as per ID. Patient is medically stable for the surgery.
[2017-05-05 07:09] VITALS: BP 126/68
--- NOTE | 2017-05-05 08:36 | Transfer of Care Summary ---
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 Was transferred to [facility] where he underwent TMA right foot by on 04/14/17. Patient was monitored on telemetry from and was treated for the following problems: -Severe peripheral vascular disease/Right leg gangrene s/p angioplasty and stent During which the patient was monitored off antibiotics as per ID recommendation, on 05/01/17 he underwent angiogram/angioplasty: - Ultrasound-guided left common femoral artery access - Aortogram - Second order right leg angiogram - Left leg angiogram in a retrograde fashion through the sheath in the left common femoral artery - Atherectomy of the distal right SFA - Angioplasty and stenting of distal right SFA - Angioplasty of right popliteal artery - Angioplasty of mid right SFA -Patient most likely would be going to BKA on Thursday. need to discuss with vascular surgery Acute on chronic hypoxemic respiratory failure multifactorial, including CHF, acute lung injury possibly bilateral aspiration pneumonitis. Patient also received broad spectrum antibiotics and was currently off antibiotics per ID. - saturating 96% on 2L NC -Was kept on Lasix 40 mg BID IV Type II RI Troponin peaked at 6.64 which was thought be likely due to type 2 RI. No EKG changes s/o RI. Component of volume overload, PRN diuresis while monitoring the serum creatinine closely. Echocardiogram: Estimated ejection fraction is 35-40%. Right ventricular systolic pressure estimated to be elevated at 55- 60 mmHg. Moderate to severe pulmonary hypertension. Dilated IVC. Dr Avery, visual artist on board [facility] on CKD improved continued to monitor. Type 1 Diabetes Complicated with diabetic nephropathy, neuropathy, peripheral vascular disease and retinopathy. Endocrinology on board, appreciate recomendations. on levemir and ISS accuchecks Skin: Unstageable pressure ulcer noted on right upper buttocks which was present on admission. Continue wound care recommendations. DVT ppx sc heparin DNR/DNI Assessment/Plan: above
[2017-05-05 08:47] LABS: ABSOLUTE BASOPHIL COUNT 0.1 /CUMM (0.0-0.2); ABSOLUTE EOSINOPHIL COUNT 0.2 /CUMM (0.0-0.7); ABSOLUTE GRANULOCYTE CT 6.3 /CUMM (1.4-6.5); ABSOLUTE LYMPH COUNT 1.2 /CUMM (1.2-3.4); ABSOLUTE MONOCYTE COUNT 0.6 /CUMM (0.10-0.60); BASOPHIL % 0.8 % (0.0-2.0); EOSINOPHIL % 2.9 % (0-5); GRANULOCYTE % 74.5 % (42.2-75.2); MEAN CORPUSCULAR HGB 30.8 PG (27.0-31.0); MEAN CORPUSCULAR HGB CONC 33.7 G/DL (33.0-37.0); MEAN CORPUSCULAR VOLUME 91.6 FL (80.0-94.0); MEAN PLATELET VOLUME 8.2 FL (7.4-10.4); PLATELET COUNT 406 /CUMM (130-400); RBC DISTRIBUTION WIDTH 17.6 % (11.5-14.5); RED BLOOD CELL CT 2.94 /CUMM (4.70-6.10); WHITE BLOOD CELL COUNT 8.4 /CUMM (4.8-10.8)
--- NOTE | 2017-05-05 11:57 | PN- Diabetes ---
Assessment/Plan Diabetes Assessment: 70 y/o male, Hx of DM type 1 diagnosed when he was 14 years old. He was on an insulin pump with basal rate running at 0.9 units per hour in the past. His diabetes was complicated by neuropathy, retinopathy, nephropathy. Patient presented to the ED after sustaining an unwitnessed fall. He was admitted for positive troponin with peak troponin of 6.64, ongoing right foot infection and gangrene of 2nd toe and 3rd toe. Right foot TMA was done on 2017. On 05/01/2017, angioplasty and stending were done to his right LE ( SFA and popliteal artery). Currently he is on Levemir 9 units twice a day. Novolog coverage before meals and Novolog coverage at bedtime. His FSGs were 188, 272, 301, 263 and 231. Plan: 1. increase Levemir to 10 units twice a day; 2. continue the current Novolog coverage before meals and Novolog coverage at bedtime; 3. monitor FSGs. will follow. Subjective Subjective: He feels better. Objective Last 24 Hrs of Vital Signs/I&O Vital Signs Date Time Temp Pulse Resp B/P B/P Pulse O2 O2 Flow FiO2 Mean Ox Delivery Rate 05/05 0849 78 126/68 05/05 0849 78 126/68 05/05 0709 99.1 78 18 126/68 97 Room Air 05/04 2132 98.1 67 20 110/65 96 05/04 1513 97.3 60 20 140/60 96 Room Air Intake & Output 05/05 1600 05/05 0800 05/05 0000 Intake Total 240 240 Output Total Balance 240 240 Intake, Oral 240 240 Patient 145 lb Weight Findings Pertinent Lab/[place] Results: Laboratory Tests 05/05 0715 Chemistry Sodium (137 - 145 mmol/L) 138 Potassium (3.5 - 5.1 mmol/L) 4.5 Chloride (98 - 107 mmol/L) 99 Carbon Dioxide (22 - 30 mmol/L) 30 Anion Gap (5 - 16) 9 BUN (9 - 20 mg/dL) 34 H Creatinine (0.7 - 1.2 mg/dL) 1.2 Estimated GFR (>60 ml/min) > 60 BUN/Creatinine Ratio (7 - 25 %) 28.3 H Hematology CBC w Diff NO MAN DIFF REQ WBC (4.8 - 10.8 /CUMM) 8.4 RBC (4.70 - 6.10 /CUMM) 2.94 L Hgb (14.0 - 18.0 G/DL) 9.1 L Hct (42 - 52 %) 27.0 L MCV (80.0 - 94.0 FL) 91.6 MCH (27.0 - 31.0 PG) 30.8 MCHC (33.0 - 37.0 G/DL) 33.7 RDW (11.5 - 14.5 %) 17.6 H Plt Count (130 - 400 /CUMM) 406 H MPV (7.4 - 10.4 FL) 8.2 Gran % (42.2 - 75.2 %) 74.5 Lymphocytes % (20.5 - 51.1 %) 14.8 L Monocytes % (1.7 - 9.3 %) 7.0 Eosinophils % (0 - 5 %) 2.9 Basophils % (0.0 - 2.0 %) 0.8 Absolute Granulocytes (1.4 - 6.5 /CUMM) 6.3 Absolute Lymphocytes (1.2 - 3.4 /CUMM) 1.2 Absolute Monocytes (0.10 - 0.60 /CUMM) 0.6 Absolute Eosinophils (0.0 - 0.7 /CUMM) 0.2 Absolute Basophils (0.0 - 0.2 /CUMM) 0.1
--- NOTE | 2017-05-05 14:16 | PN- Infect Dx ---
Subjective Subjective: Afebrile without complaints Objective Last 24 Hrs of Vital Signs/I&O Vital Signs Date Time Temp Pulse Resp B/P B/P Pulse O2 O2 Flow FiO2 Mean Ox Delivery Rate 05/05 0849 78 126/68 05/05 0849 78 126/68 05/05 0709 99.1 78 18 126/68 97 Room Air 05/04 2132 98.1 67 20 110/65 96 05/04 1513 97.3 60 20 140/60 96 Room Air Intake & Output 05/05 1600 05/05 0800 05/05 0000 Intake Total 240 240 Output Total Balance 240 240 Intake, Oral 240 240 Patient 145 lb Weight Physical Exam Other Physical Findings: He appears comfortable in no acute distress Extremities dressings intact over both feet Results Last 24 Hours of Lab Results: Laboratory Tests 05/05 714 Chemistry Sodium (137 - 145 mmol/L) 138 Potassium (3.5 - 5.1 mmol/L) 4.5 Chloride (98 - 107 mmol/L) 99 Carbon Dioxide (22 - 30 mmol/L) 30 Anion Gap (5 - 16) 9 BUN (9 - 20 mg/dL) 34 H Creatinine (0.7 - 1.2 mg/dL) 1.2 Estimated GFR (>60 ml/min) > 60 BUN/Creatinine Ratio (7 - 25 %) 28.3 H Hematology CBC w Diff NO MAN DIFF REQ WBC (4.8 - 10.8 /CUMM) 8.4 RBC (4.70 - 6.10 /CUMM) 2.94 L Hgb (14.0 - 18.0 G/DL) 9.1 L Hct (42 - 52 %) 27.0 L MCV (80.0 - 94.0 FL) 91.6 MCH (27.0 - 31.0 PG) 30.8 MCHC (33.0 - 37.0 G/DL) 33.7 RDW (11.5 - 14.5 %) 17.6 H Plt Count (130 - 400 /CUMM) 406 H MPV (7.4 - 10.4 FL) 8.2 Gran % (42.2 - 75.2 %) 74.5 Lymphocytes % (20.5 - 51.1 %) 14.8 L Monocytes % (1.7 - 9.3 %) 7.0 Eosinophils % (0 - 5 %) 2.9 Basophils % (0.0 - 2.0 %) 0.8 Absolute Granulocytes (1.4 - 6.5 /CUMM) 6.3 Absolute Lymphocytes (1.2 - 3.4 /CUMM) 1.2 Absolute Monocytes (0.10 - 0.60 /CUMM) 0.6 Absolute Eosinophils (0.0 - 0.7 /CUMM) 0.2 Absolute Basophils (0.0 - 0.2 /CUMM) 0.1 Last 24 Hours of [place] Results: No new cultures Assessment/Plan ID Impression: Stable, status post bilateral lower extremity angiogram 4 days ago, with atherectomy, angioplasty and stenting of the distal right SFA, angioplasty of the right popliteal artery and angioplasty of the mid right SFA. 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 His left foot also has evidence of ischemic changes and may warrant further evaluation. Suggestion: 1. Await right BKA, scheduled for May 08 2. Further evaluation/management of his left foot per Vascular Surgery 3. Continue to follow off antibiotics pending above Will no longer follow at this time, but please call with any questions
[2017-05-05 14:19] VITALS: BP 112/46
[2017-05-05 21:15] VITALS: BP 128/86
[2017-05-06 05:51] VITALS: BP 167/76
--- NOTE | 2017-05-06 07:11 | PN- Housestaff ---
Kimberly LOZANO,Dalia 05/06/17 0710: Subjective Follow-up For: Osteomyelitis, diabetes, peripheral vascular disease Complaints: no complaints Subjective: Patient was seen and examined at bedside. He was sitting in his bed and having his breakfast. No overnight events. He offers no complaints. He says he slept well overnight. He is aware of his surgery scheduled on Thursday. He denies chest pain, chest pressure, nausea, vomiting, abdominal pain, pain in his bilateral leg. Review of Systems Constitutional: Reports: no symptoms. Cardiovascular: Reports: no symptoms. Respiratory: Reports: no symptoms. Gastrointestinal: Reports: no symptoms. Genitourinary: Reports: no symptoms. Musculoskeletal: Reports: no symptoms. Objective Last 24 Hrs of Vital Signs/I&O Vital Signs Date Time Temp Pulse Resp B/P B/P Pulse O2 O2 Flow FiO2 Mean Ox Delivery Rate 05/07 915 98.0 77 160/86 05/06 0916 77 160/86 05/06 0551 98.0 77 20 167/76 98 Room Air 05/05 2115 98.0 80 20 128/86 95 05/05 1419 98.4 80 18 112/46 97 Room Air Intake & Output 05/06 1600 05/06 0800 05/06 0000 Intake Total 280 120 Output Total 700 500 Balance -420 -380 Intake, Oral 280 120 Number 2 4 Bowel Movements Output, Urine 700 500 Patient 144 lb Weight Physical Exam General Appearance: Alert, Oriented X3, Cooperative, No Acute Distress HEENT: PERRLA, EOMI, Mucous Membr. moist/pink Neck: No JVD, No thryomegaly Cardiovascular: Normal S1, Normal S2, No Murmurs Lungs: Clear to Auscultation Abdomen: Soft, No Tenderness, No Hepatospenomegaly Neurological: Strength at 5/5 X4 Ext, Normal Tone Extremities: dressing intact. Vascular: Normal Pulses Current Medications: Current Medications Sig/Coral Start time Last Medication Dose Route Stop Time Status Admin Acetaminophen 500 MG TID 04/03 1156 AC 05/06 PO 0916 Albuterol Sulfate 3 ML Q4P PRN 04/15 0800 AC 04/24 INH 1039 Amlodipine Besylate 5 MG DAILY 04/03 1200 AC 05/06 PO 0916 Aspirin 81 MG DAILY 04/04 1000 AC 05/06 PO 0916 Docusate Sodium 100 MG DAILY NEEDED PRN 04/26 1100 AC 04/26 PO 1204 Fluticasone 2 SPRAY DAILY 04/03 1155 AC 05/06 Propionate THOMAS 0918 Furosemide 40 MG 0730,1630 05/03 0730 AC 05/06 PO 0540 Heparin Sodium 5,000 UNIT Q8 05/04 1400 AC 05/06 (Porcine) SC 0540 Insulin Aspart 0 TIDAC/HS 05/02 1200 AC 05/06 SC 0817 Insulin Detemir 12 UNITS BID 05/06 1000 AC 05/06 SC 0915 Insulin Detemir 10 UNITS BID 05/05 1000 DC 05/05 SC 2059 Metoprolol Succinate 25 MG DAILY 04/03 1714 AC 05/06 PO 0916 Omeprazole 40 MG DAILY AC 04/11 0700 AC 05/06 PO 0540 Polyethylene Glycol 17 GM DAILY 04/21 0830 AC 05/05 PO 0852 Povidone Iodine 1 MEHRAN DAILY 04/13 1000 AC 05/06 TOP 0918 Pregabalin 50 MG TID 04/03 1155 DC 05/05 PO 0902 Senna 187 MG AT BEDTIME 04/25 2200 AC 05/04 PO 2149 Last 24 Hrs of Lab/[place] Results Last 24 Hrs of Labs/Mics: Laboratory Tests 05/06/17 0734: Anion Gap 6, Estimated GFR > 60, BUN/Creatinine Ratio 31.7 H, CBC w Diff NO MAN DIFF REQ, RBC 2.81 L, MCV 91.7, MCH 30.2, MCHC 32.9 L, RDW 17.5 H, MPV 8.3, Gran % 53.4, Lymphocytes % 31.4, Monocytes % 7.9, Eosinophils % 5.8 H, Basophils % 1.5, Absolute Granulocytes 2.4, Absolute Lymphocytes 1.4, Absolute Monocytes 0.4, Absolute Eosinophils 0.3, Absolute Basophils 0.1 Assessment/Plan Assessment: 71 -year-old gentleman with PMH type I diabetes (complicated by neuropathy, retinopathy and nephropathy), complete heart block status post pacemaker placement, severe PVD, 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 Was transferred to [facility] where he underwent TMA right foot by on 04/14/17. Patient had a angioplasty and stenting of his right distal superficial femoral artery, angioplasty of his right popliteal artery and mid right superficial femoral artery on 05/02/2007. Problem list: MRSA osteomyelitis Acute hypoxic respiratory failure- resolved Severe peripheral vascular disease Right leg gangrene s/p angioplasty and stent - POD 4 Type 1 diabetes Renal insufficiency Assessment and plan: * Patient is off antibiotics. Patient will be seen by vascular surgery and podiatry for further evaluation of BKA which is planned on Thursday. Dressing needs to be changed every day. We will talk to the family regarding further plan for surgery [BKA] and also will follow-up with podiatry and vascular surgery. * We will continue his Lasix 40 twice a day, metoprolol 25 daily, amlodipine 5 mg, aspirin 81, Lyrica 50 mg 3 times a day, Prilosec 40 and Levemir 10 units twice a day with a sliding scale. Patient is saturating 95 on room air. His vitals are stable. DVT prophylaxis-subcutaneous heparin Code-DNR/DNI Problem List: 1. Diabetes 2. Osteomyelitis Pain Ratin Pain Location: none Pain Goal: Remain pain free Pain Plan: tylenol Tomorrow's Labs & Rationales: cbc,bep Jeff Haas 05/06/17 1225: Attending MD Review Statement Attending Statement Attending MD Statement: examined this patient, discuss w/resident/PA/POWER OPERATOR, agreed w/resident/PA/POWER OPERATOR, discussed with family, reviewed EMR data (avail), discussed with nursing, discussed with case mgmt, reviewed images, amended to note Attending Assessment/Plan: [facility] and stent placement in [facility] alongwith atherectomy and angioplasty. His creatinnie is stable. He is on room air with PO lasix toalreting well. F/u vascular surgery about timing of BKA if needed. Continue wound care as per podiatry of [facility]. Monitor off abx as per ID. Patient is medically stable for the surgery.
[2017-05-06 08:13] LABS: ABSOLUTE BASOPHIL COUNT 0.1 /CUMM (0.0-0.2); ABSOLUTE EOSINOPHIL COUNT 0.3 /CUMM (0.0-0.7); ABSOLUTE GRANULOCYTE CT 2.4 /CUMM (1.4-6.5); ABSOLUTE LYMPH COUNT 1.4 /CUMM (1.2-3.4); ABSOLUTE MONOCYTE COUNT 0.4 /CUMM (0.10-0.60); BASOPHIL % 1.5 % (0.0-2.0); EOSINOPHIL % 5.8 % (0-5); GRANULOCYTE % 53.4 % (42.2-75.2); HEMATOCRIT 25.8 % (42-52); MEAN CORPUSCULAR HGB 30.2 PG (27.0-31.0); MEAN CORPUSCULAR HGB CONC 32.9 G/DL (33.0-37.0); MEAN CORPUSCULAR VOLUME 91.7 FL (80.0-94.0); MEAN PLATELET VOLUME 8.3 FL (7.4-10.4); PLATELET COUNT 387 /CUMM (130-400); RBC DISTRIBUTION WIDTH 17.5 % (11.5-14.5); RED BLOOD CELL CT 2.81 /CUMM (4.70-6.10); WHITE BLOOD CELL COUNT 4.6 /CUMM (4.8-10.8)
--- NOTE | 2017-05-06 08:18 | PN- Diabetes ---
Assessment/Plan Diabetes Assessment: 70 y/o male, Hx of DM type 1 diagnosed when he was 14 years old. He was on an insulin pump with basal rate running at 0.9 units per hour in the past. His diabetes was complicated by neuropathy, retinopathy, nephropathy. Patient presented to the ED after sustaining an unwitnessed fall. He was admitted for positive troponin with peak troponin of 6.64, ongoing right foot infection and gangrene of 2nd toe and 3rd toe. Right foot TMA was done on 2017. On 05/01/2017, angioplasty and stending were done to his right LE ( SFA and popliteal artery). Currently he is on Levemir 10 units twice a day. Novolog coverage before meals and Novolog coverage at bedtime. His FSGs were 231. 348. 271, 350 and 360. Plan: Plan: 1. increase Levemir to 12 units twice a day; 2. adjust Novolog coverage before meals--detail see the inpatient DM order 3. continue the current Novolog coverage at bedtime; 4. monitor FSGs. will follow. Inpatient Diabetes Orders Before Each Meal: Bolus Insulin: Novolog < 80 mg/dl: no coverage 80-100 mg/dl: 7 units 101-120 mg/dl: 7 units 121-150 mg/dl: 7 units 151-200 mg/dl: 8 units 201-250 mg/dl: 9 units 251-300 mg/dl: 10 units 301-350 mg/dl: 11 units 351-400 mg/dl: 12 units > 400 mg/dl: 13 units Subjective Subjective: He feels okay. Objective Last 24 Hrs of Vital Signs/I&O Vital Signs Date Time Temp Pulse Resp B/P B/P Pulse O2 O2 Flow FiO2 Mean Ox Delivery Rate 05/06 0551 98.0 77 20 167/76 98 Room Air 05/055 98.0 80 20 128/86 95 05/05 1419 98.4 80 18 112/46 97 Room Air 05/05 0849 78 126/68 05/05 0849 78 126/68 Intake & Output 05/06 1600 05/06 0800 05/06 0000 Intake Total 280 120 Output Total 700 500 Balance -420 -380 Intake, Oral 280 120 Number 2 4 Bowel Movements Output, Urine 700 500 Patient 144 lb Weight Findings Pertinent Lab/Fransisco Results: Laboratory Tests 05/06 0734 Chemistry Sodium Pending Potassium Pending Chloride Pending Carbon Dioxide Pending Anion Gap Pending BUN Pending Creatinine Pending BUN/Creatinine Ratio Pending Hematology CBC w Diff Pending WBC Pending RBC Pending Hgb Pending Hct Pending MCV Pending MCH Pending MCHC Pending RDW Pending Plt Count Pending MPV Pending
[2017-05-06 13:59] VITALS: BP 144/68
[2017-05-06 22:02] VITALS: BP 138/68
[2017-05-07 06:27] VITALS: BP 161/54
--- NOTE | 2017-05-07 07:53 | PN- Housestaff ---
Dalia Harris MD 05/07/17 0752: Subjective Follow-up For: Osteomyelitis Complaints: no complaints Subjective: Patient seen and examined at bedside. He was sitting in his bed comfortably in no acute distress. No overnight events. No complaints. Patient denies pain in his both legs, fever, cough, shortness of breath, chest pain, palpitation. Review of Systems Constitutional: Reports: no symptoms. Cardiovascular: Reports: no symptoms. Respiratory: Reports: no symptoms. Gastrointestinal: Reports: no symptoms. Genitourinary: Reports: no symptoms. Objective Last 24 Hrs of Vital Signs/I&O Vital Signs Date Time Temp Pulse Resp B/P B/P Pulse O2 O2 Flow FiO2 Mean Ox Delivery Rate 05/07 1350 97.6 70 20 145/56 97 Room Air 05/07 0800 96 Room Air 05/07 0753 76 161/54 05/07 0753 76 161/54 05/07 0627 97.9 76 20 161/54 96 Room Air 05/06 2202 97.9 75 20 138/68 96 Room Air Intake & Output 05/07 1600 05/07 0800 05/07 0000 Intake Total 240 480 Output Total 201 500 200 Balance -201 -260 280 Intake, Oral 240 480 Number 1 Bowel Movements Output, Stool 1 Output, Urine 200 500 200 Patient 140 lb Weight Physical Exam General Appearance: Alert, Oriented X3, Cooperative, No Acute Distress Skin: No Rashes, No Breakdown Cardiovascular: Regular Rate, Normal S1, Normal S2, No Murmurs Lungs: Clear to Auscultation, Normal Air Movement Abdomen: Normal Bowel Sounds, Soft, No Tenderness Neurological: Normal Speech, Strength at 5/5 X4 Ext, Normal Tone Extremities: No Cyanosis, No Edema, Normal Pulses Current Medications: Current Medications Sig/Coral Start time Last Medication Dose Route Stop Time Status Admin Acetaminophen 500 MG TID 04/03 1156 AC 05/07 PO 0754 Albuterol Sulfate 3 ML Q4P PRN 04/15 0800 AC 04/24 INH 1039 Amlodipine Besylate 5 MG DAILY 04/03 1200 AC 05/07 PO 0753 Aspirin 81 MG DAILY 04/04 1000 AC 05/07 PO 0753 Docusate Sodium 100 MG DAILY NEEDED PRN 04/26 1100 AC 04/26 PO 1204 Fluticasone 2 SPRAY DAILY 04/03 1155 AC 05/07 Propionate THOMAS 0754 Furosemide 40 MG 0730,1630 05/03 0730 AC 05/07 PO 0544 Heparin Sodium 5,000 UNIT Q8 05/04 1400 AC 05/07 (Porcine) SC 1334 Insulin Aspart 0 AT BEDTIME 05/06 2200 AC SC Insulin Aspart 0 TIDAC/HS 05/02 1200 AC 05/07 SC 1142 Insulin Detemir 12 UNITS BID 05/06 1000 AC 05/07 SC 0752 Metoprolol Succinate 25 MG DAILY 04/03 1714 AC 05/07 PO 0753 Omeprazole 40 MG DAILY AC 04/11 0700 AC 05/07 PO 0544 Patient Medication 1 ED ONE ONE 05/06 1415 DC 05/06 Teaching ED 05/06 1416 1417 Polyethylene Glycol 17 GM DAILY 04/21 0830 AC 05/05 PO 0852 Povidone Iodine 1 MEHRAN DAILY 04/13 1000 AC 05/07 TOP 1039 Senna 187 MG AT BEDTIME 04/25 2200 AC 05/04 PO 2149 Last 24 Hrs of Lab/[place]isco Results Last 24 Hrs of Labs/Mics: Laboratory Tests 05/07/17 0712: Anion Gap 10, Estimated GFR > 60, BUN/Creatinine Ratio 34.5 H, CBC w Diff NO MAN DIFF REQ, RBC 2.77 L, MCV 92.2, MCH 30.8, MCHC 33.4, RDW 17.6 H, MPV 8.1, Gran % 60.6, Lymphocytes % 26.0, Monocytes % 6.7, Eosinophils % 5.3 H, Basophils % 1.4, Absolute Granulocytes 3.4, Absolute Lymphocytes 1.5, Absolute Monocytes 0.4, Absolute Eosinophils 0.3, Absolute Basophils 0.1 Assessment/Plan Assessment: 71 -year-old gentleman with PMH type I diabetes (complicated by neuropathy, retinopathy and nephropathy), complete heart block status post pacemaker placement, severe PVD, 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 Was transferred to [facility] where he underwent TMA right foot by on 04/14/17. Patient had a angioplasty and stenting of his right distal superficial femoral artery, angioplasty of his right popliteal artery and mid right superficial femoral artery on 05/02/2007. Problem list: MRSA osteomyelitis Acute hypoxic respiratory failure- resolved Severe peripheral vascular disease Right leg gangrene s/p angioplasty and stent - POD 5 Type 1 diabetes Renal insufficiency Assessment and plan: * Patient is off antibiotics. Patient will be seen by vascular surgery and podiatry for further evaluation of BKA which is planned on Thursday. Dressing needs to be changed every day. Family is aware of the surgery, both patient and family agrees with the plan. Patient will be seen by cardiology today for cardiac clearance. * We will continue his Lasix 40 twice a day, metoprolol 25 daily, amlodipine 5 mg, aspirin 81, Lyrica 50 mg 3 times a day, Prilosec 40 and Levemir 10 units twice a day with a sliding scale. Patient is saturating 95 on room air. His vitals are stable. DVT prophylaxis-subcutaneous heparin Code-DNR/DNI Problem List: 1. Diabetes 2. Osteomyelitis 3. Peripheral vascular disease Pain Ratin Pain Location: none Pain Goal: Remain pain free Pain Plan: tylenol Tomorrow's Labs & Rationales: cbc,bep Theo Vicente MD 05/07/175: Attending MD Review Statement Attending Statement Attending MD Statement: examined this patient, discuss w/resident/PA/GLASS SANDER BELT, agreed w/resident/PA/GLASS SANDER BELT, reviewed EMR data (avail), discussed with case mgmt, amended to note Attending Assessment/Plan: The patient was seen and discussed with house staff. Appreciate Cardiology, ID, and Endocrinology input. Anticipating surgery tomorrow (BKA). Agree with transfusion to optimize H/H pre-operatively. As noted by Cardiology, if any instability post operatively may need monitoring/ICU. NPO post midnight, insulin adjusted.
[2017-05-07 08:12] LABS: ABSOLUTE BASOPHIL COUNT 0.1 /CUMM (0.0-0.2); ABSOLUTE EOSINOPHIL COUNT 0.3 /CUMM (0.0-0.7); ABSOLUTE GRANULOCYTE CT 3.4 /CUMM (1.4-6.5); ABSOLUTE LYMPH COUNT 1.5 /CUMM (1.2-3.4); ABSOLUTE MONOCYTE COUNT 0.4 /CUMM (0.10-0.60); BASOPHIL % 1.4 % (0.0-2.0); EOSINOPHIL % 5.3 % (0-5); GRANULOCYTE % 60.6 % (42.2-75.2); HEMATOCRIT 25.5 % (42-52); MEAN CORPUSCULAR HGB 30.8 PG (27.0-31.0); MEAN CORPUSCULAR HGB CONC 33.4 G/DL (33.0-37.0); MEAN CORPUSCULAR VOLUME 92.2 FL (80.0-94.0); MEAN PLATELET VOLUME 8.1 FL (7.4-10.4); PLATELET COUNT 391 /CUMM (130-400); RBC DISTRIBUTION WIDTH 17.6 % (11.5-14.5); RED BLOOD CELL CT 2.77 /CUMM (4.70-6.10); WHITE BLOOD CELL COUNT 5.7 /CUMM (4.8-10.8)
--- NOTE | 2017-05-07 08:33 | PN- Diabetes ---
Assessment/Plan Diabetes Assessment: 70 y/o male, Hx of DM type 1 diagnosed when he was 14 years old. He was on an insulin pump with basal rate running at 0.9 units per hour in the past. His diabetes was complicated by neuropathy, retinopathy, nephropathy. Patient presented to the ED after sustaining an unwitnessed fall. He was admitted for positive troponin with peak troponin of 6.64, ongoing right foot infection and gangrene of 2nd toe and 3rd toe. Right foot TMA was done on 2017. On 05/01/2017, angioplasty and stending were done to his right LE ( SFA and popliteal artery). Currently he is on Levemir 12 units twice a day. Novolog coverage before meals and Novolog coverage at bedtime. His FSGs were 360, 415, 200, 227 and 170. Plan: continue the current insulin regimen for now monitor FSGs will follow. Subjective Subjective: He feels fatigued. Objective Last 24 Hrs of Vital Signs/I&O Vital Signs Date Time Temp Pulse Resp B/P B/P Pulse O2 O2 Flow FiO2 Mean Ox Delivery Rate 05/07 0753 76 161/54 05/07 0753 76 161/54 05/07 0627 97.9 76 20 161/54 96 Room Air 05/06 2202 97.9 75 20 138/68 96 Room Air 05/06 1359 97.4 76 20 144/68 96 Room Air 05/06 0916 98.0 77 160/86 05/06 0916 77 160/86 Intake & Output 05/07 1600 05/07 0800 05/07 0000 Intake Total 240 480 Output Total 500 200 Balance -260 280 Intake, Oral 240 480 Number 1 Bowel Movements Output, Urine 500 200 Patient 140 lb Weight Findings Pertinent Lab/[place]isco Results: Laboratory Tests 05/07 0712 Chemistry Sodium Pending Potassium Pending Chloride Pending Carbon Dioxide Pending Anion Gap Pending BUN Pending Creatinine Pending BUN/Creatinine Ratio Pending Hematology CBC w Diff Pending WBC Pending RBC Pending Hgb Pending Hct Pending MCV Pending MCH Pending MCHC Pending RDW Pending Plt Count Pending MPV Pending
[2017-05-07 13:50] VITALS: BP 145/56
--- NOTE | 2017-05-07 18:04 | PN- Cardiology ---
Subjective Subjective: The patient is scheduled for right BKA tomorrow. He is off of telemetry. He has no complaints of chest pain or shortness of breath. He is alert and eating well. His BUN is mildly elevated but other chemistries are normal. His blood count is marginally low. Objective Vital Signs and I&Os Vital Signs Date Time Temp Pulse Resp B/P B/P Pulse O2 O2 Flow FiO2 Mean Ox Delivery Rate 05/07 1600 97 Room Air 05/07 1350 97.6 70 20 145/56 97 Room Air 05/07 0800 96 Room Air 05/07 0753 76 161/54 05/07 0753 76 161/54 05/07 0627 97.9 76 20 161/54 96 Room Air 05/06 2202 97.9 75 20 138/68 96 Room Air Intake & Output 05/07 1600 05/07 0800 05/07 0000 05/06 1600 05/06 0800 05/06 0000 Intake Total 730 240 480 500 280 120 Output Total 501 500 200 825 700 500 Balance 229 -260 280 -325 -420 -380 Intake, IV 10 Intake, Oral 720 240 480 500 280 120 Number 2 1 5 2 4 Bowel Movements Output, Stool 1 Output, Urine 500 500 200 825 700 500 Patient 140 lb 144 lb Weight Physical Exam: He is in no distress HEENT exam is normal Chest is clear Heart reveals soft heart sounds and no murmurs Extremities reveal both feet are wrapped Current Medications: Current Medications Sig/Coral Start time Last Medication Dose Route Stop Time Status Admin Acetaminophen 500 MG TID 04/03 1156 AC 05/07 PO 1713 Albuterol Sulfate 3 ML Q4P PRN 04/15 0800 AC 04/24 INH 1039 Amlodipine Besylate 5 MG DAILY 04/03 1200 AC 05/07 PO 0753 Aspirin 81 MG DAILY 04/04 1000 AC 05/07 PO 0753 Docusate Sodium 100 MG DAILY NEEDED PRN 04/26 1100 AC 04/26 PO 1204 Fluticasone 2 SPRAY DAILY 04/03 1155 AC 05/07 Propionate THOMAS 0754 Furosemide 40 MG 0730,1630 11 0730 AC 05/07 PO 1713 Heparin Sodium 5,000 UNIT Q8 05/04 1400 AC 05/07 (Porcine) SC 1334 Insulin Aspart 0 AT BEDTIME 05/06 2200 AC SC Insulin Aspart 0 TIDAC/HS 05/02 1200 AC 05/07 SC 1753 Insulin Detemir 12 UNITS BID 05/06 1000 AC 05/07 SC 0752 Insulin Human Regular 0 Q6 05/07 2359 AC ND Metoprolol Succinate 25 MG DAILY 04/03 1714 AC 05/07 PO 0753 Omeprazole 40 MG DAILY AC 04/11 0700 AC 05/07 PO 0544 Polyethylene Glycol 17 GM DAILY 04/21 0830 AC 05/05 PO 0852 Povidone Iodine 1 MEHRAN DAILY 04/13 1000 AC 05/07 TOP 1039 Senna 187 MG AT BEDTIME 04/25 2200 AC 05/04 PO 2149 Sodium Chloride 1,000 ML Q13H 05/08 0000 AC IV Results Last 48 Hrs of Labs/Mics: Laboratory Tests 05/07/17 0712: Anion Gap 10, Estimated GFR > 60, BUN/Creatinine Ratio 34.5 H, CBC w Diff NO MAN DIFF REQ, RBC 2.77 L, MCV 92.2, MCH 30.8, MCHC 33.4, RDW 17.6 H, MPV 8.1, Gran % 60.6, Lymphocytes % 26.0, Monocytes % 6.7, Eosinophils % 5.3 H, Basophils % 1.4, Absolute Granulocytes 3.4, Absolute Lymphocytes 1.5, Absolute Monocytes 0.4, Absolute Eosinophils 0.3, Absolute Basophils 0.1 05/06/17 0734: Anion Gap 6, Estimated GFR > 60, BUN/Creatinine Ratio 31.7 H, CBC w Diff NO MAN DIFF REQ, RBC 2.81 L, MCV 91.7, MCH 30.2, MCHC 32.9 L, RDW 17.5 H, MPV 8.3, Gran % 53.4, Lymphocytes % 31.4, Monocytes % 7.9, Eosinophils % 5.8 H, Basophils % 1.5, Absolute Granulocytes 2.4, Absolute Lymphocytes 1.4, Absolute Monocytes 0.4, Absolute Eosinophils 0.3, Absolute Basophils 0.1 Assessment/Plan Assessment/Plan The patient is stable enough for his urgent BKA tomorrow. He is moderate to high risk for any surgery because of this ischemic heart disease but the degree of risk is not prohibitive. If he is stable in the perioperative period he can be returned to general medicine floor, but if there is any instability he should be placed in intensive care until stable. I recommend putting a magnet over his pacemaker during the procedure as he is pacemaker dependent. He probably will need transfusion as his H&H are marginally low at this time. Continue telemetry? Not applicable
[2017-05-07 23:28] VITALS: BP 145/64
--- NOTE | 2017-05-08 07:26 | PN- Housestaff ---
Kimberly LOZANO,Dalia 05/08/17 0726: Subjective Follow-up For: Osteomyelitis, diabetes Complaints: no complaints Subjective: Patient was seen and examined at bedside. He was sitting comfortably in his bed. No overnight events. No complaints. He denies pain in his both leg, chest pain, shortness of breath, nausea, vomiting. Review of Systems Constitutional: Reports: no symptoms. Cardiovascular: Reports: no symptoms. Respiratory: Reports: no symptoms. Gastrointestinal: Reports: no symptoms. Genitourinary: Reports: no symptoms. Musculoskeletal: Reports: no symptoms. Objective Last 24 Hrs of Vital Signs/I&O Vital Signs Date Time Temp Pulse Resp B/P B/P Pulse O2 O2 Flow FiO2 Mean Ox Delivery Rate 05/08 1141 66 150/75 05/08 0943 68 160/72 05/08 0942 68 162/70 05/08 0759 97.4 69 20 163/72 96 Room Air 05/08 0000 97 Room Air 05/07 2328 97.6 55 20 145/64 97 Room Air 05/07 1600 97 Room Air 05/07 1350 97.6 70 20 145/56 97 Room Air Intake & Output 05/08 1600 05/08 0800 05/08 0000 Intake Total 75 220 Output Total 825 450 Balance -825 75 -230 Intake, Blood 20 Product Intake, IV 75 Intake, Oral 200 Number 1 2 Bowel Movements Output, Urine 825 450 Patient 137 lb 138 lb Weight Weight Bed scale Bed scale Measurement Method Physical Exam General Appearance: Alert, Oriented X3, Cooperative Skin: No Rashes, No Breakdown HEENT: Atraumatic, PERRLA Cardiovascular: Normal S1, Normal S2, No Murmurs Lungs: Clear to Auscultation Abdomen: Soft, No Hepatospenomegaly Neurological: Strength at 5/5 X4 Ext Current Medications: Current Medications Sig/Coral Start time Last Medication Dose Route Stop Time Status Admin Acetaminophen 500 MG TID 04/03 1156 AC 05/08 PO 0935 Albuterol Sulfate 3 ML Q4P PRN 04/15 0800 AC 04/24 INH 1039 Amlodipine Besylate 5 MG DAILY 04/03 1200 AC 05/08 PO 0942 Aspirin 81 MG DAILY 04/04 1000 AC 05/07 PO 0753 Dextrose 25 GM ONCE ONE 05/08 0515 DC 05/08 IV 05/08 05 0522 Dextrose/Sodium 1,000 ML Q13H 05/08 0730 05/08 Chloride IV 0830 Docusate Sodium 100 MG DAILY NEEDED PRN 04/26 1100 AC 04/26 PO 1204 Fluticasone 2 SPRAY DAILY 04/03 1155 AC 05/08 Propionate THOMAS 0946 Furosemide 40 MG 0730,1630 05/03 0730 AC 05/08 PO 0935 Heparin Sodium 5,000 UNIT Q8 05/04 1400 AC 05/08 (Porcine) SC 0522 Insulin Aspart 0 AT BEDTIME 05/06 2200 DC 05/07 SC 2118 Insulin Aspart 0 TIDAC/HS 05/02 1200 DC 05/07 SC 2125 Insulin Detemir 11 UNITS BID 05/08 1000 AC SC Insulin Detemir 8 UNITS ONCE ONE 05/08 0845 DC 05/08 SC 05/08 0846 0934 Insulin Detemir 12 UNITS BID 05/06 1000 DC 05/07 SC 2304 Insulin Human Regular 2 UNITS .STK-MED ONE 05/08 0038 DC IV 05/08 0039 Insulin Human Regular 0 Q6 05/07 2359 AC 05/08 SC 1150 Metoprolol Succinate 25 MG DAILY 04/03 1714 AC 05/08 PO 0943 Omeprazole 40 MG DAILY AC 04/11 0700 AC 05/08 PO 0611 Polyethylene Glycol 17 GM DAILY 04/21 0830 AC 05/05 PO 0852 Povidone Iodine 1 MEHRAN DAILY 04/13 1000 AC 05/08 TOP 0947 Senna 187 MG AT BEDTIME 04/25 2200 AC 05/07 PO 2302 Sodium Chloride 1,000 ML Q13H 05/08 0600 DC 05/08 IV 0611 Sodium Chloride 1,000 ML Q13H 05/08 0000 DC IV Last 24 Hrs of Lab/Fransisco Results Last 24 Hrs of Labs/Mics: Laboratory Tests 05/08/17 0747: Anion Gap 10, Estimated GFR > 60, BUN/Creatinine Ratio 37.0 H, CBC w Diff NO MAN DIFF REQ, RBC 3.35 L, MCV 92.0, MCH 30.8, MCHC 33.5, RDW 17.7 H, MPV 8.3, Gran % 62.1, Lymphocytes % 25.0, Monocytes % 7.1, Eosinophils % 4.7, Basophils % 1.1, Absolute Granulocytes 3.6, Absolute Lymphocytes 1.4, Absolute Monocytes 0.4 , Absolute Eosinophils 0.3, Absolute Basophils 0.1 Assessment/Plan Assessment: 71 -year-old gentleman with PMH type I diabetes (complicated by neuropathy, retinopathy and nephropathy), complete heart block status post pacemaker placement, severe PVD, 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 Was transferred to [facility] where he underwent TMA right foot by on 04/14/17. Patient had a angioplasty and stenting of his right distal superficial femoral artery, angioplasty of his right popliteal artery and mid right superficial femoral artery on 05/02/2007. Problem list: MRSA osteomyelitis Acute hypoxic respiratory failure- resolved Severe peripheral vascular disease Right leg gangrene s/p angioplasty and stent - POD 5 Type 1 diabetes Renal insufficiency Assessment and plan: * Patient is off antibiotics. Patient is planned for BKA today. Patient had 1 unit of blood transfusion yesterday because of his borderline hemoglobin as per cardiology. Patient is on D5 half-normal saline at 75 mL per hour. Continue his Novolin sliding scale insulin. Once patient comes back from A we will continue all this home medication. * We will hold his Lasix 40 twice a day, metoprolol 25 daily, amlodipine 5 mg, aspirin 81, Lyrica 50 mg 3 times a day, Prilosec 40 and Levemir 10 units twice a day with a sliding scale. DVT prophylaxis-subcutaneous heparin Code-DNR/DNI Problem List: 1. Osteomyelitis 2. Diabetes Pain Ratin Pain Location: none Pain Goal: Remain pain free Pain Plan: tylenol Tomorrow's Labs & Rationales: cbc,bep Cinthia LOZANO,Theo 05/08/17 1608: Attending MD Review Statement Attending Statement Attending MD Statement: examined this patient, discuss w/resident/PA/CUSTOMER DATA TECHNICIAN, agreed w/resident/PA/CUSTOMER DATA TECHNICIAN, discussed with family, reviewed EMR data (avail), discussed with nursing, discussed with case mgmt, amended to note Attending Assessment/Plan: The patient was seen and discussed with house staff. To OR today for AKA. If stable post operatively may return to general medical floor. If not stable or complications may need ICU/monitored care. Will re-evaluate post operatively.
[2017-05-08 07:59] VITALS: BP 163/72
[2017-05-08 08:20] LABS: ABSOLUTE BASOPHIL COUNT 0.1 /CUMM (0.0-0.2); ABSOLUTE EOSINOPHIL COUNT 0.3 /CUMM (0.0-0.7); ABSOLUTE GRANULOCYTE CT 3.6 /CUMM (1.4-6.5); ABSOLUTE LYMPH COUNT 1.4 /CUMM (1.2-3.4); ABSOLUTE MONOCYTE COUNT 0.4 /CUMM (0.10-0.60); BASOPHIL % 1.1 % (0.0-2.0); EOSINOPHIL % 4.7 % (0-5); GRANULOCYTE % 62.1 % (42.2-75.2); MEAN CORPUSCULAR HGB 30.8 PG (27.0-31.0); MEAN CORPUSCULAR HGB CONC 33.5 G/DL (33.0-37.0); MEAN PLATELET VOLUME 8.3 FL (7.4-10.4); PLATELET COUNT 369 /CUMM (130-400); RBC DISTRIBUTION WIDTH 17.7 % (11.5-14.5); RED BLOOD CELL CT 3.35 /CUMM (4.70-6.10); WHITE BLOOD CELL COUNT 5.7 /CUMM (4.8-10.8)
[2017-05-08 10:26] LABS: HEMATOCRIT 30.8 % (42-52)
[2017-05-08 11:41] VITALS: BP 150/75
--- NOTE | 2017-05-08 13:31 | PN- Diabetes ---
Assessment/Plan Diabetes Assessment: 71 y/o male, Hx of DM type 1 diagnosed when he was 14 years old. He was on an insulin pump with basal rate running at 0.9 units per hour in the past. His diabetes was complicated by neuropathy, retinopathy, nephropathy. Patient presented to the ED after sustaining an unwitnessed fall. He was admitted for positive troponin with peak troponin of 6.64, ongoing right foot infection and gangrene of 2nd toe and 3rd toe. Right foot TMA was done on 2017. On 05/01/2017, angioplasty and stending were done to his right LE ( SFA and popliteal artery). Patient is going to ahve BKA done today. Now he has been kept NPO. He is on D5 1 /2 NS at 75 ml/hour. He was on Levemir 12 units twice a day. Novolog coverage before meals and Novolog coverage at bedtime. His FSGs were 293, 108, 72 and 159. Plan: 1. as he is kept NPO, levemir was decreased to 8 units this morning. He is on RISS coverage every 6 hours while he is NPO. 2. after he is back from OR and ready to eat, he will go back on his previous insulin regimen-- Levemir 11 units twice a day, previous Novolog coverage before meals and Novolog coverage at bedtime. 3. monitor FSGs. please call endo if there are any questions on his insulin orders. will follow. Subjective Subjective: He is waiting for the surgery. Objective Last 24 Hrs of Vital Signs/I&O Vital Signs Date Time Temp Pulse Resp B/P B/P Pulse O2 O2 Flow FiO2 Mean Ox Delivery Rate 05/08 1141 66 150/75 05/08 0943 68 160/72 05/08 0942 68 162/70 05/08 0759 97.4 69 20 163/72 96 Room Air 05/08 0000 97 Room Air 05/07 2328 97.6 55 20 145/64 97 Room Air 05/07 1600 97 Room Air 05/07 1350 97.6 70 20 145/56 97 Room Air Intake & Output 05/08 1600 05/08 0800 05/08 0000 Intake Total 75 220 Output Total 825 450 Balance -825 75 -230 Intake, Blood 20 Product Intake, IV 75 Intake, Oral 200 Number 1 2 Bowel Movements Output, Urine 825 450 Patient 137 lb 138 lb Weight Weight Bed scale Bed scale Measurement Method Findings Pertinent Lab/Fransisco Results: Laboratory Tests 05/08 0747 Chemistry Sodium (137 - 145 mmol/L) 138 Potassium (3.5 - 5.1 mmol/L) 4.0 Chloride (98 - 107 mmol/L) 98 Carbon Dioxide (22 - 30 mmol/L) 30 Anion Gap (5 - 16) 10 BUN (9 - 20 mg/dL) 37 H Creatinine (0.7 - 1.2 mg/dL) 1.0 Estimated GFR (>60 ml/min) > 60 BUN/Creatinine Ratio (7 - 25 %) 37.0 H Hematology CBC w Diff NO MAN DIFF REQ WBC (4.8 - 10.8 /CUMM) 5.7 RBC (4.70 - 6.10 /CUMM) 3.35 L Hgb (14.0 - 18.0 G/DL) 10.3 L Hct (42 - 52 %) 30.8 L MCV (80.0 - 94.0 FL) 92.0 MCH (27.0 - 31.0 PG) 30.8 MCHC (33.0 - 37.0 G/DL) 33.5 RDW (11.5 - 14.5 %) 17.7 H Plt Count (130 - 400 /CUMM) 369 MPV (7.4 - 10.4 FL) 8.3 Gran % (42.2 - 75.2 %) 62.1 Lymphocytes % (20.5 - 51.1 %) 25.0 Monocytes % (1.7 - 9.3 %) 7.1 Eosinophils % (0 - 5 %) 4.7 Basophils % (0.0 - 2.0 %) 1.1 Absolute Granulocytes (1.4 - 6.5 /CUMM) 3.6 Absolute Lymphocytes (1.2 - 3.4 /CUMM) 1.4 Absolute Monocytes (0.10 - 0.60 /CUMM) 0.4 Absolute Eosinophils (0.0 - 0.7 /CUMM) 0.3 Absolute Basophils (0.0 - 0.2 /CUMM) 0.1
--- NOTE | 2017-05-08 16:49 | Operative Report ---
Operative/Inv Procedure Report Surgery Date: 05/08/17 Name of Procedure: Right transtibial amputation Pre-Operative Diagnosis: Nonhealing infected right TMA Post-Operative Diagnosis: Same Estimated Blood Loss: 300ML Surgeon/Shot Dropper: KATHLEEN ELIAS MD Anesthesia: general endotracheal tube Operative/Procedure Note Note: 71-year-old man with severe peripheral arterial disease who presented with gangrenous right toes. He underwent transrectal metatarsal amputation by Dr. Moreno. The stump the dehisced and has been chronically infected. Conservative management regarding the infection and saving the stump was unsuccessful. I was asked to perform a major amputation. From prior angiographic findings, I thought that the patient would heal a below knee amputation. After discussion with the patient and his family, and informed consent was obtained. Patient was taken to the operating room and placed supine on the table. A timeout was called according to protocol. Perioperative antibiotic had been started. After satisfactory induction of anesthesia, a Land catheter was placed. The patient was then prepped and draped in standard surgical fashion. A posterior flap fashion below the knee was marked on the skin. Using a scalpel , the incision was made over the prior marked skin. The incision was carried down through the subcutaneous venous tissue and fascia using electrocautery. The sciatic nerve was identified, ligated and divided. Other venous and arterial vessels were ligated and divided. The tibia was transected using an electric saw. The fibula was transected about 1 cm shorter than the tibia. The leg was then passed off the field as specimen. The stump was then copiously irrigated with sterile saline. Hemostasis was obtained. The end of the tibia was rounded off. Then a 2-0 Vicryl suture was used to approximate the muscle layer covering the bone. The fascial layer was then closed with 3-0 Vicryl suture in an interrupted fashion. Subdermal area was then closed with 3-0 Vicryl suture in an interrupted fashion. The skin was closed with herberth. Sterile dressing was applied. The count was correct. The patient was then awakened and taken to the PACU in stable condition.
[2017-05-08 18:24] VITALS: BP 124/52
--- NOTE | 2017-05-08 21:12 | PN- Vascular Surgery ---
Subjective Subjective: POST-OP NOTE No complaints at this time. Still sleepy. Denies pain. Objective Vital Signs and I&Os Vital Signs Date Time Temp Pulse Resp B/P B/P Pulse O2 O2 Flow FiO2 Mean Ox Delivery Rate 05/08 1824 97.8 65 18 124/52 99 Room Air 05/08 1141 66 150/75 05/08 0943 68 160/72 05/08 0942 68 162/70 05/08 0800 95 Room Air 05/08 0759 97.4 69 20 163/72 96 Room Air 05/08 0000 97 Room Air 05/07 2328 97.6 55 20 145/64 97 Room Air Intake & Output 05/08 1600 05/08 0800 05/08 0000 05/07 1600 05/07 0800 05/07 0000 Intake Total 630 75 220 730 240 480 Output Total 1225 450 501 500 200 Balance -595 75 -230 229 -260 280 Intake, Blood 20 Product Intake, IV 600 75 10 Intake, Oral 30 200 720 240 480 Number 1 2 2 1 Bowel Movements Output, Stool 1 Output, Urine 1225 450 500 500 200 Patient 137 lb 138 lb 140 lb Weight Weight Bed scale Bed scale Measurement Method Physical Exam: General - alert but sleepy. comfortable. no acute distress. Lungs - clear. poor effort. Cardiac - s1s2 - jewell draining clear, yellow urine Extremities - warm bilaterally. R leg in knee immobilizer, s/p R bka. dressing c /d/i. no drains. Current Medications: Current Medications Sig/Coral Start time Last Medication Dose Route Stop Time Status Admin Acetaminophen 500 MG TID 04/03 1156 AC 05/08 PO 0935 Albuterol Sulfate 3 ML Q4P PRN 04/15 0800 AC 04/24 INH 1039 Amlodipine Besylate 5 MG DAILY 04/03 1200 AC 05/08 PO 0942 Aspirin 81 MG DAILY 04/04 1000 AC 05/07 PO 0753 Cefazolin Sodium 2 GM IQ8 05/09 0000 AC N/A 1 UNIT IV 05/09 0829 Dextrose 25 GM ONCE ONE 05/08 0515 DC 05/08 IV 05/08 0516 0522 Dextrose/Sodium 1,000 ML Q13H 05/08 0730 DC 05/08 Chloride IV 0830 Docusate Sodium 100 MG DAILY NEEDED PRN 04/26 1100 AC 04/26 PO 1204 Fentanyl Citrate 250 MCG .STK-MED ONE 05/08 1300 DC IM 05/08 1301 Fluticasone 2 SPRAY DAILY 04/03 1155 AC 05/08 Propionate THOMAS 0946 Furosemide 40 MG 0730,1630 05/03 0730 AC 05/08 PO 1845 Heparin Sodium 5,000 UNIT Q8 05/04 1400 AC 05/08 (Porcine) SC 0522 Hydromorphone HCl 1 MG ONCE ONE 05/08 2014 DC 05/08 IV 05/09 2015 2040 Ibuprofen 400 MG Q4P PRN 05/08 1845 AC PO Insulin Aspart 0 TIDAC/HS 05/08 2100 AC 05/08 SC 2103 Insulin Aspart 0 AT BEDTIME 05/06 2200 DC 05/07 SC 2118 Insulin Aspart 0 TIDAC/HS 05/02 1200 DC 05/07 SC 2125 Insulin Detemir 11 UNITS BID 05/08 1000 AC SC Insulin Detemir 8 UNITS ONCE ONE 05/08 0845 DC 05/08 SC 05/08 0846 0934 Insulin Detemir 12 UNITS BID 05/06 1000 DC 05/07 SC 2304 Insulin Human Regular 8 UNITS .STK-MED ONE 05/08 1149 DC IV 05/08 1150 Insulin Human Regular 2 UNITS .STK-MED ONE 05/08 0038 DC IV 05/08 0039 Insulin Human Regular 0 Q6 05/07 2359 DC 05/08 SC 1150 Metoprolol Succinate 25 MG DAILY 04/03 1714 AC 05/08 PO 0943 Midazolam HCl 2 MG .STK-MED ONE 05/08 1300 DC IM 05/08 1301 Morphine Sulfate 10 MG .STK-MED ONE 05/08 1300 DC IV 05/08 1301 Omeprazole 40 MG DAILY AC 04/11 0700 AC 05/08 PO 0611 Oxycodone/ 1 TAB Q6P PRN 05/08 1830 AC 05/08 Acetaminophen PO 1849 Polyethylene Glycol 17 GM DAILY 04/21 0830 AC 05/05 PO 0852 Povidone Iodine 1 MEHRAN DAILY 04/13 1000 AC 05/08 TOP 0947 Senna 187 MG AT BEDTIME 04/25 2200 AC 05/07 PO 2302 Sodium Chloride 1,000 ML Q13H 05/08 0600 DC 05/08 IV 0611 Results Last 48 Hours of Labs: Laboratory Tests 05/08 05/07 0747 0712 Chemistry Sodium (137 - 145 mmol/L) 138 136 L Potassium (3.5 - 5.1 mmol/L) 4.0 4.1 Chloride (98 - 107 mmol/L) 98 96 L Carbon Dioxide (22 - 30 mmol/L) 30 29 Anion Gap (5 - 16) 10 10 BUN (9 - 20 mg/dL) 37 H 38 H Creatinine (0.7 - 1.2 mg/dL) 1.0 1.1 Estimated GFR (>60 ml/min) > 60 > 60 BUN/Creatinine Ratio (7 - 25 %) 37.0 H 34.5 H Hematology CBC w Diff NO MAN DIFF REQ NO MAN DIFF REQ WBC (4.8 - 10.8 /CUMM) 5.7 5.7 RBC (4.70 - 6.10 /CUMM) 3.35 L 2.77 L Hgb (14.0 - 18.0 G/DL) 10.3 L 8.5 L Hct (42 - 52 %) 30.8 L 25.5 L MCV (80.0 - 94.0 FL) 92.0 92.2 MCH (27.0 - 31.0 PG) 30.8 30.8 MCHC (33.0 - 37.0 G/DL) 33.5 33.4 RDW (11.5 - 14.5 %) 17.7 H 17.6 H Plt Count (130 - 400 /CUMM) 369 391 MPV (7.4 - 10.4 FL) 8.3 8.1 Gran % (42.2 - 75.2 %) 62.1 60.6 Lymphocytes % (20.5 - 51.1 %) 25.0 26.0 Monocytes % (1.7 - 9.3 %) 7.1 6.7 Eosinophils % (0 - 5 %) 4.7 5.3 H Basophils % (0.0 - 2.0 %) 1.1 1.4 Absolute Granulocytes (1.4 - 6.5 /CUMM) 3.6 3.4 Absolute Lymphocytes (1.2 - 3.4 /CUMM) 1.4 1.5 Absolute Monocytes (0.10 - 0.60 /CUMM) 0.4 0.4 Absolute Eosinophils (0.0 - 0.7 /CUMM) 0.3 0.3 Absolute Basophils (0.0 - 0.2 /CUMM) 0.1 0.1 Assessment/Plan Assessment/Plan This 71 year old male with hx dm, complete heart block s/p pacemaker, severe PVD , now POD#0 s/p right BKA for rle ischemia, s/p tma (nonhealing) advance diet as tolerated. d/c ivf pain control as ordered sarwat-operative ancef x 2 jewell overnight for strict i/o's hep sc - dvt ppx f/u am labs dressing change on POD#3 call booking prizer on thursday to assess for legal transcriptionist / prosthetic fitting management of medical problems as per primary team will d/w Core Measures Venous Thromboembolism VTE Risk Factors Immobility No Mechanical VTE Prophylaxis d/t N/A MechProphylax Ordered No VTE Pharm Prophylaxis d/t NA PharmProphylax ordered
[2017-05-08 22:04] VITALS: BP 14/53
[2017-05-09 06:39] VITALS: BP 114/62
--- NOTE | 2017-05-09 08:15 | PN- Housestaff ---
Kimberly LOZANO,Dalia 05/09/17 0815: Subjective Follow-up For: EUGENIO, diabetes Complaints: complains of pain over the stump Subjective: Patient seen and examined at bedside today. He slept well overnight. Complains of pain 9 x 10 over the right surgical site. He denies chest pain, chest pressure, nausea, vomiting, abdominal pain. He is having his diabetic diet. Review of Systems Constitutional: Reports: no symptoms. Cardiovascular: Reports: no symptoms. Respiratory: Reports: no symptoms. Gastrointestinal: Reports: no symptoms. Genitourinary: Reports: no symptoms. Objective Last 24 Hrs of Vital Signs/I&O Vital Signs Date Time Temp Pulse Resp B/P B/P Pulse O2 O2 Flow FiO2 Mean Ox Delivery Rate 05/09 1106 74 128/62 05/09 1106 74 128/62 05/09 0639 98.6 83 20 114/62 94 05/08 2204 97.2 84 20 14/53 97 Room Air 05/08 1824 97.8 65 18 124/52 99 Room Air Intake & Output 05/09 1600 05/09 0800 05/09 0000 Intake Total 240 390 Output Total 500 Balance 240 -110 Intake, IV 150 Intake, Oral 240 240 Output, Urine 500 Patient 142 lb Weight Weight Bed scale Measurement Method Physical Exam General Appearance: Alert, Oriented X3, Cooperative, No Acute Distress Skin: No Rashes, No Breakdown, No Significant Lesion HEENT: Atraumatic, PERRLA Neck: Supple, No JVD Cardiovascular: Regular Rate, Normal S1, Normal S2, No Murmurs Lungs: Clear to Auscultation Abdomen: Soft, No Tenderness, No Hepatospenomegaly Neurological: Strength at 5/5 X4 Ext, Normal Tone, Sensation Intact, Cranial Nerves 3-12 NL Current Medications: Current Medications Sig/Coral Start time Last Medication Dose Route Stop Time Status Admin Acetaminophen 500 MG TID 04/03 1156 DC 05/08 PO 2138 Albuterol Sulfate 3 ML Q4P PRN 04/15 0800 AC 04/24 INH 1039 Amlodipine Besylate 5 MG DAILY 04/03 1200 AC 05/09 PO 1106 Aspirin 81 MG DAILY 04/04 1000 AC 05/09 PO 1105 Cefazolin Sodium 2 GM IQ8 05/09 0000 DC 05/09 N/A 1 UNIT IV 05/09 0829 0814 Dextrose/Sodium 1,000 ML Q13H 05/08 0730 DC 05/08 Chloride IV 0830 Docusate Sodium 100 MG DAILY NEEDED PRN 04/26 1100 AC 04/26 PO 1204 Fluticasone 2 SPRAY DAILY 04/03 1155 AC 05/09 Propionate THOMAS 1102 Furosemide 40 MG 0730,1630 05/03 0730 DC 05/09 PO 0813 Heparin Sodium 5,000 UNIT Q8 05/04 1400 AC 05/09 (Porcine) SC 0617 Hydromorphone HCl 2 MG Q4P PRN 05/09 1015 AC 05/09 PO 1107 Hydromorphone HCl 3 MG ONCE ONE 05/09 0345 DC 05/09 PO 05/09 0346 0619 Hydromorphone HCl 1 MG ONCE ONE 05/08 2330 CAN IV 05/08 2331 Hydromorphone HCl 1 MG ONCE ONE 05/08 2330 DC 05/08 PO 05/08 2331 2328 Hydromorphone HCl 1 MG ONCE ONE 05/08 2014 DC 05/08 IV 05/08 2016 2040 Ibuprofen 400 MG Q4P PRN 05/08 1845 DC 05/09 PO 0857 Insulin Aspart 0 TIDAC/HS 05/08 2100 AC 05/09 SC 1249 Insulin Detemir 11 UNITS BID 05/08 1000 AC 05/09 SC 1107 Insulin Human Regular 0 Q6 05/07 2359 DC 05/08 SC 1150 Ketorolac 15 MG ONCE ONE 05/09 0245 DC 05/09 Tromethamine IV 05/09 0246 0244 Lorazepam 0.25 MG ONCE PRN 05/09 0245 AC 05/09 IV 0310 Metoprolol Succinate 25 MG DAILY 04/03 1714 AC 05/09 PO 1106 Omeprazole 40 MG DAILY AC 04/11 0700 AC 05/09 PO 0617 Oxycodone/ 2 TAB Q6P PRN 05/08 2330 AC 05/09 Acetaminophen PO 0914 Oxycodone/ 1 TAB Q6P PRN 05/08 1830 DC 05/08 Acetaminophen PO 1849 Polyethylene Glycol 17 GM DAILY 04/21 0830 AC 05/09 PO 1105 Povidone Iodine 1 MEHRAN DAILY 04/13 1000 AC 05/09 TOP 1104 Senna 187 MG AT BEDTIME 04/25 2200 AC 05/08 PO 2137 Last 24 Hrs of Lab/Fransisco Results Last 24 Hrs of Labs/Mics: Laboratory Tests 05/09/17 0800: Anion Gap 8, Estimated GFR 55 L, BUN/Creatinine Ratio 26.9 H, CBC w Diff NO MAN DIFF REQ, RBC 2.73 L, MCV 92.3, MCH 30.8, MCHC 33.3, RDW 18.1 H, MPV 8.4, Gran % 70.7, Lymphocytes % 17.9 L, Monocytes % 8.9, Eosinophils % 1.7, Basophils % 0.8, Absolute Granulocytes 5.7, Absolute Lymphocytes 1.5, Absolute Monocytes 0.7 H, Absolute Eosinophils 0.1, Absolute Basophils 0.1 Microbiology 05/08 1350 URINE ROUT: Urine Culture - RES Assessment/Plan Assessment: 71 -year-old gentleman with PMH type I diabetes (complicated by neuropathy, retinopathy and nephropathy), complete heart block status post pacemaker placement, severe PVD, 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 Was transferred to [facility] where he underwent TMA right foot by on 04/14/17. Patient had a angioplasty and stenting of his right distal superficial femoral artery, angioplasty of his right popliteal artery and mid right superficial femoral artery on 05/02/2007. Problem list: MRSA osteomyelitis Acute hypoxic respiratory failure- resolved Severe peripheral vascular disease Right leg gangrene s/p angioplasty and stent - POD 5 Type 1 diabetes Renal insufficiency Assessment and plan: * Patient had his right BKA done yesterday. He is on cefazolin day 2. Patient' s H&H is stable. Vital stable. We will continue all his home medication. Patient is having his regular diabetic diet. Patient creatinine increased to 1.3, to avoid further renal impairment we will hold his Lasix for now and repeat BEP in the morning. Patient is being followed by Dr. Adame who suggested to continue the current dose of insulin. Vascular surgery follow-up appreciated. * We will hold his Lasix 40 twice a day [held], metoprolol 25 daily, amlodipine 5 mg, aspirin 81, Lyrica 50 mg 3 times a day, Prilosec 40 and Levemir 11 units twice a day with a sliding scale. DVT prophylaxis-subcutaneous heparin Code-DNR/DNI Pain management-Dilaudid to 2 mg every 4 when necessary, Percocet 2 tabs every 6 when necessary. Surgery instructions - dressing change on POD#3 call guide changer on thursday to assess for php website developer / prosthetic fitting Problem List: 1. Diabetes 2. Osteomyelitis 3. Below knee amputation status Pain Ratin Pain Location: rt surgical stump Pain Goal: Remain pain free Pain Plan: Dilaudid, Percocet Tomorrow's Labs & Rationales: cbc,bep Alex Moreno MD 05/09/17 1810: Attending MD Review Statement Attending Statement Attending MD Statement: examined this patient, discuss w/resident/PA/TRACTOR EXPERT, agreed w/resident/PA/TRACTOR EXPERT, discussed with nursing Attending Assessment/Plan: The patient was seen and discussed with house staff. Patient went to OR for AKA yesterday. Currently stable in Gen Med floor. Renal function deteriorated mildly , will hold lasix in the AM and re-evaluate.
[2017-05-09 08:58] LABS: ABSOLUTE BASOPHIL COUNT 0.1 /CUMM (0.0-0.2); ABSOLUTE EOSINOPHIL COUNT 0.1 /CUMM (0.0-0.7); ABSOLUTE GRANULOCYTE CT 5.7 /CUMM (1.4-6.5); ABSOLUTE LYMPH COUNT 1.5 /CUMM (1.2-3.4); ABSOLUTE MONOCYTE COUNT 0.7 /CUMM (0.10-0.60); BASOPHIL % 0.8 % (0.0-2.0); EOSINOPHIL % 1.7 % (0-5); GRANULOCYTE % 70.7 % (42.2-75.2); MEAN CORPUSCULAR HGB 30.8 PG (27.0-31.0); MEAN CORPUSCULAR HGB CONC 33.3 G/DL (33.0-37.0); MEAN CORPUSCULAR VOLUME 92.3 FL (80.0-94.0); MEAN PLATELET VOLUME 8.4 FL (7.4-10.4); PLATELET COUNT 339 /CUMM (130-400); RBC DISTRIBUTION WIDTH 18.1 % (11.5-14.5); RED BLOOD CELL CT 2.73 /CUMM (4.70-6.10); WHITE BLOOD CELL COUNT 8.1 /CUMM (4.8-10.8)
[2017-05-09 11:08] LABS: HEMATOCRIT 25.2 % (42-52)
--- NOTE | 2017-05-09 12:33 | PN- Diabetes ---
Assessment/Plan Diabetes Assessment: The patient is somewhat discouraged this afternoon. He states his appetite is poor. According to the nurse however he did eat a good breakfast this morning. The patient is on Levemir 11 units twice a day and sliding scale NovoLog. His fingerstick sugars were 118 before breakfast and 119 before lunch. Plan: Suggest continue the present insulin. Encourage good diet. Dietary supplements should be given as needed. The patient's serum creatinine is 1.3 this morning. We may need to reduce his dose of Lasix. Would repeat his labs tomorrow. Subjective Subjective: Pain and area of amputation Review of Systems Constitutional: Denies: chills, fever. Cardiovascular: Denies: chest pain. Gastrointestinal: Denies: abdominal pain. Objective Last 24 Hrs of Vital Signs/I&O Vital Signs Date Time Temp Pulse Resp B/P B/P Pulse O2 O2 Flow FiO2 Mean Ox Delivery Rate 05/09 1106 74 128/62 05/09 1106 74 128/62 05/09 0639 98.6 83 20 114/62 94 05/08 2204 97.2 84 20 97 Room Air 05/08 1824 97.8 65 18 124/52 99 Room Air Intake & Output 05/09 1600 05/09 0800 05/09 0000 Intake Total 240 390 Output Total 500 Balance 240 -110 Intake, IV 150 Intake, Oral 240 240 Output, Urine 500 Patient 142 lb Weight Weight Bed scale Measurement Method Vital Signs Date Time Temp Pulse Resp B/P B/P Pulse O2 O2 Flow FiO2 Mean Ox Delivery Rate 05/09 1106 74 128/62 05/09 1106 74 128/62 05/09 0639 98.6 83 20 114/62 94 05/08 2204 97.2 84 20 97 Room Air 05/08 1824 97.8 65 18 124/52 99 Room Air Intake & Output 05/09 1600 05/09 0800 05/09 0000 Intake Total 240 390 Output Total 500 Balance 240 -110 Intake, IV 150 Intake, Oral 240 240 Output, Urine 500 Patient 142 lb Weight Weight Bed scale Measurement Method Physical Exam General Appearance: alert, awake, comfortable Head: normal appearance Neck: normal inspection Cardiovascular: regular rate/rhythm Abdomen: normal bowel sounds Extremities: right AKA in immobuilizer; left foot bandagerd. Current Medications: Current Medications Sig/Coral Start time Last Medication Dose Route Stop Time Status Admin Acetaminophen 500 MG TID 04/03 1156 DC 05/08 PO 2138 Albuterol Sulfate 3 ML Q4P PRN 04/15 0800 AC 04/24 INH 1039 Amlodipine Besylate 5 MG DAILY 04/03 1200 AC 05/09 PO 1106 Aspirin 81 MG DAILY 04/04 1000 AC 05/09 PO 1105 Cefazolin Sodium 2 GM IQ8 05/09 0000 DC 05/09 N/A 1 UNIT IV 05/09 0829 0814 Dextrose/Sodium 1,000 ML Q13H 05/08 0730 DC 05/08 Chloride IV 0830 Docusate Sodium 100 MG DAILY NEEDED PRN 04/26 1100 AC 04/26 PO 1204 Fentanyl Citrate 250 MCG .STK-MED ONE 05/08 1300 DC IM 05/08 1301 Fluticasone 2 SPRAY DAILY 04/03 1155 AC 05/09 Propionate THOMAS 1102 Furosemide 40 MG 0730,1630 05/03 0730 AC 05/09 PO 0813 Heparin Sodium 5,000 UNIT Q8 05/04 1400 AC 05/09 (Porcine) SC 0617 Hydromorphone HCl 2 MG Q4P PRN 05/09 1015 AC 05/09 PO 1107 Hydromorphone HCl 3 MG ONCE ONE 05/09 0345 DC 05/09 PO 05/09 0346 0619 Hydromorphone HCl 1 MG ONCE ONE 05/08 2330 CAN IV 05/08 2331 Hydromorphone HCl 1 MG ONCE ONE 05/08 2330 DC 05/08 PO 05/08 2331 2328 Hydromorphone HCl 1 MG ONCE ONE 05/08 2014 DC 05/08 IV 05/08 2016 2040 Ibuprofen 400 MG Q4P PRN 05/08 1845 AC 05/09 PO 0857 Insulin Aspart 0 TIDAC/HS 05/08 2100 AC 05/09 SC 0813 Insulin Detemir 11 UNITS BID 05/08 1000 AC 05/09 SC 1107 Insulin Human Regular 0 Q6 05/07 2359 DC 05/08 SC 1150 Ketorolac 15 MG ONCE ONE 05/09 0245 DC 05/09 Tromethamine IV 05/09 0246 0244 Lorazepam 0.25 MG ONCE PRN 05/09 0245 AC 05/09 IV 0310 Metoprolol Succinate 25 MG DAILY 04/03 1714 AC 05/09 PO 1106 Midazolam HCl 2 MG .STK-MED ONE 05/08 1300 DC IM 05/08 1301 Morphine Sulfate 10 MG .STK-MED ONE 05/08 1300 DC IV 05/08 1301 Omeprazole 40 MG DAILY AC 04/11 0700 AC 05/09 PO 0617 Oxycodone/ 2 TAB Q6P PRN 05/08 2330 AC 05/09 Acetaminophen PO 0914 Oxycodone/ 1 TAB Q6P PRN 05/08 1830 DC 05/08 Acetaminophen PO 1849 Polyethylene Glycol 17 GM DAILY 04/21 0830 AC 05/09 PO 1105 Povidone Iodine 1 MEHRAN DAILY 04/13 1000 AC 05/09 TOP 1104 Senna 187 MG AT BEDTIME 04/25 2200 AC 05/08 PO 2137 Findings Pertinent Lab/Fransisco Results: Laboratory Tests 05/09 0800 Chemistry Sodium (137 - 145 mmol/L) 139 Potassium (3.5 - 5.1 mmol/L) 4.8 Chloride (98 - 107 mmol/L) 100 Carbon Dioxide (22 - 30 mmol/L) 30 Anion Gap (5 - 16) 8 BUN (9 - 20 mg/dL) 35 H Creatinine (0.7 - 1.2 mg/dL) 1.3 H Estimated GFR (>60 ml/min) 55 L BUN/Creatinine Ratio (7 - 25 %) 26.9 H Hematology CBC w Diff NO MAN DIFF REQ WBC (4.8 - 10.8 /CUMM) 8.1 RBC (4.70 - 6.10 /CUMM) 2.73 L Hgb (14.0 - 18.0 G/DL) 8.4 L Hct (42 - 52 %) 25.2 L MCV (80.0 - 94.0 FL) 92.3 MCH (27.0 - 31.0 PG) 30.8 MCHC (33.0 - 37.0 G/DL) 33.3 RDW (11.5 - 14.5 %) 18.1 H Plt Count (130 - 400 /CUMM) 339 MPV (7.4 - 10.4 FL) 8.4 Gran % (42.2 - 75.2 %) 70.7 Lymphocytes % (20.5 - 51.1 %) 17.9 L Monocytes % (1.7 - 9.3 %) 8.9 Eosinophils % (0 - 5 %) 1.7 Basophils % (0.0 - 2.0 %) 0.8 Absolute Granulocytes (1.4 - 6.5 /CUMM) 5.7 Absolute Lymphocytes (1.2 - 3.4 /CUMM) 1.5 Absolute Monocytes (0.10 - 0.60 /CUMM) 0.7 H Absolute Eosinophils (0.0 - 0.7 /CUMM) 0.1 Absolute Basophils (0.0 - 0.2 /CUMM) 0.1
[2017-05-09 14:52] VITALS: BP 118/60
--- NOTE | 2017-05-09 19:03 | PN- Cardiology ---
Subjective Subjective: CV status stable and unchanged Objective Vital Signs and I&Os Vital Signs Date Time Temp Pulse Resp B/P B/P Pulse O2 O2 Flow FiO2 Mean Ox Delivery Rate 05/09 1452 98.6 81 20 118/60 97 Room Air 05/09 1106 74 128/62 05/09 1106 74 128/62 05/09 0800 96 Room Air 05/09 0639 98.6 83 20 114/62 94 05/08 2204 97.2 84 20 14/53 97 Room Air Intake & Output 05/09 1600 05/09 0800 05/09 0000 05/08 1600 05/08 0800 05/08 0000 Intake Total 840 240 390 630 75 220 Output Total 133 741 5455 450 Balance 190 240 -110 -595 75 -230 Intake, Blood 20 Product Intake, IV 150 600 75 Intake, Oral 840 240 240 30 200 Number 1 2 Bowel Movements Output, Urine 729 324 2823 450 Patient 142 lb 137 lb 138 lb Weight Weight Bed scale Bed scale Bed scale Measurement Method Physical Exam: General Appearance: Alert, Oriented X3, Cooperative, No Acute Distress Skin: No Rashes, No Breakdown, No Significant Lesion HEENT: Atraumatic, PERRLA Neck: Supple, No JVD Cardiovascular: Regular Rate, Normal S1, Normal S2, No Murmurs Lungs: Clear to Auscultation Abdomen: Soft, No Tenderness, No Hepatospenomegaly Neurological: Strength at 5/5 X4 Ext, Normal Tone, Sensation Intact, Cranial Nerves 3-12 NL Current Medications: Current Medications Sig/Coral Start time Last Medication Dose Route Stop Time Status Admin Acetaminophen 500 MG TID 04/03 1156 DC 05/08 PO 2138 Albuterol Sulfate 3 ML Q4P PRN 04/15 0800 AC 04/24 INH 1039 Amlodipine Besylate 5 MG DAILY 04/03 1200 AC 05/09 PO 1106 Aspirin 81 MG DAILY 04/04 1000 AC 05/09 PO 1105 Cefazolin Sodium 2 GM IQ8 05/09 0000 DC 05/09 N/A 1 UNIT IV 05/09 0829 0814 Dextrose/Sodium 1,000 ML Q13H 05/08 0730 DC 05/08 Chloride IV 0830 Docusate Sodium 100 MG DAILY NEEDED PRN 04/26 1100 AC 04/26 PO 1204 Fluticasone 2 SPRAY DAILY 04/03 1155 AC 03/17 Propionate THOMAS 1102 Furosemide 40 MG 0730,1630 / 0730 DC 05/09 PO 0813 Heparin Sodium 5,000 UNIT Q8 05/04 1400 AC 05/09 (Porcine) SC 1402 Hydromorphone HCl 2 MG Q4P PRN 05/09 1015 AC 05/09 PO 1107 Hydromorphone HCl 3 MG ONCE ONE 05/09 0345 DC 05/09 PO 05/09 0346 0619 Hydromorphone HCl 1 MG ONCE ONE 05/08 2330 CAN IV 05/08 2331 Hydromorphone HCl 1 MG ONCE ONE 05/08 2330 DC 05/08 PO 05/08 2331 2328 Hydromorphone HCl 1 MG ONCE ONE 05/08 2014 DC 05/08 IV 05/09 2015 204 Ibuprofen 400 MG Q4P PRN 05/08 1845 DC 05/09 PO 0857 Insulin Aspart 0 TIDAC/HS 05/08 2100 AC 05/09 SC 1249 Insulin Detemir 11 UNITS BID 05/08 1000 AC 05/09 SC 1107 Ketorolac 15 MG ONCE ONE 05/09 0245 DC 05/09 Tromethamine IV 05/09 0246 0244 Lorazepam 0.25 MG ONCE PRN 05/09 0245 AC 05/09 IV 0310 Metoprolol Succinate 25 MG DAILY 04/03 1714 AC 05/09 PO 1106 Omeprazole 40 MG DAILY AC 04/11 0700 AC 05/09 PO 0617 Oxycodone/ 2 TAB Q6P PRN 05/09 1830 AC Acetaminophen PO Oxycodone/ 2 TAB Q6P PRN 05/08 2330 DC 05/09 Acetaminophen PO 1554 Oxycodone/ 1 TAB Q6P PRN 05/08 1830 DC 05/08 Acetaminophen PO 1849 Polyethylene Glycol 17 GM DAILY 04/21 0830 AC 05/09 PO 1105 Povidone Iodine 1 MEHRAN DAILY 04/13 1000 AC 05/09 TOP 1104 Senna 187 MG AT BEDTIME 04/25 2200 AC 05/08 PO 2137 Results Last 48 Hrs of Labs/Mics: Laboratory Tests 05/09/17 0800: Anion Gap 8, Estimated GFR 55 L, BUN/Creatinine Ratio 26.9 H, CBC w Diff NO MAN DIFF REQ, RBC 2.73 L, MCV 92.3, MCH 30.8, MCHC 33.3, RDW 18.1 H, MPV 8.4, Gran % 70.7, Lymphocytes % 17.9 L, Monocytes % 8.9, Eosinophils % 1.7, Basophils % 0.8, Absolute Granulocytes 5.7, Absolute Lymphocytes 1.5, Absolute Monocytes 0.7 H, Absolute Eosinophils 0.1, Absolute Basophils 0.1 05/08/17 0747: Anion Gap 10, Estimated GFR > 60, BUN/Creatinine Ratio 37.0 H, CBC w Diff NO MAN DIFF REQ, RBC 3.35 L, MCV 92.0, MCH 30.8, MCHC 33.5, RDW 17.7 H, MPV 8.3, Gran % 62.1, Lymphocytes % 25.0, Monocytes % 7.1, Eosinophils % 4.7, Basophils % 1.1, Absolute Granulocytes 3.6, Absolute Lymphocytes 1.4, Absolute Monocytes 0.4 , Absolute Eosinophils 0.3, Absolute Basophils 0.1 Assessment/Plan Assessment/Plan Assessment: 1. Acute hypoxic respiratory failure with acute on chronic HFrEF and slight worsening of dyspnea today 2. Severe PAD; s/p right transtibial amputation 3. Gangrene right LE 4. DM 5. Renal insufficiency. 6. Slightly worsening anemia 7. Elevated troponin Plan: * Continue Lasix * Continue other medications * Stable cardiac status post op Continue telemetry? No
[2017-05-09 22:23] VITALS: BP 127/59
--- NOTE | 2017-05-10 07:27 | PN- Housestaff ---
Dalia Harris MD 05/10/17 0726: Subjective Follow-up For: Right BKA, diabetes, peripheral vascular disease Complaints: no complaints Subjective: Patient was seen and examined at bedside. No overnight events. He offers no complaints. He denies any pain in his surgical site, no chest pain, shortness of breath, headache, nausea, vomiting. Review of Systems Constitutional: Reports: no symptoms. Cardiovascular: Reports: no symptoms. Respiratory: Reports: no symptoms. Gastrointestinal: Reports: no symptoms. Genitourinary: Reports: no symptoms. Objective Last 24 Hrs of Vital Signs/I&O Vital Signs Date Time Temp Pulse Resp B/P B/P Pulse O2 O2 Flow FiO2 Mean Ox Delivery Rate 05/10 1032 84 160/52 05/10 1031 84 160/52 05/10 0741 97.9 88 20 158/66 96 05/09 2223 98.6 87 20 127/59 96 Room Air 05/09 1452 98.6 81 20 118/60 97 Room Air Intake & Output 05/10 1600 05/10 0800 05/10 0000 Intake Total 480 600 Output Total 50 650 450 Balance -50 -170 150 Intake, Oral 480 600 Output, Urine 50 650 450 Patient 139 lb Weight Physical Exam General Appearance: Alert, Oriented X3, Cooperative, No Acute Distress Cardiovascular: Regular Rate, Normal S1, Normal S2 Lungs: Clear to Auscultation Abdomen: Normal Bowel Sounds, Soft, No Tenderness, No Hepatospenomegaly Neurological: Normal Speech, Strength at 5/5 X4 Ext, Normal Tone, Sensation Intact Extremities: No Cyanosis, No Edema, Normal Pulses Current Medications: Current Medications Sig/Coral Start time Last Medication Dose Route Stop Time Status Admin Acetaminophen 650 MG Q4P PRN 05/10 0815 AC 05/10 PO 0815 Acetaminophen 500 MG TID 04/03 1156 DC 05/08 PO 2138 Albuterol Sulfate 3 ML Q4P PRN 04/15 0800 AC 04/24 INH 1039 Amlodipine Besylate 5 MG DAILY 04/03 1200 AC 05/10 PO 1031 Aspirin 81 MG DAILY 04/04 1000 AC 05/10 PO 1032 Docusate Sodium 100 MG DAILY NEEDED PRN 04/26 1100 AC 04/26 PO 1204 Fluticasone 2 SPRAY DAILY 04/03 1155 AC 05/10 Propionate THOMAS 1031 Furosemide 40 MG 0730,1630 05/10 1630 AC PO Furosemide 40 MG 0730,1630 05/03 0730 DC 05/09 PO 0813 Heparin Sodium 5,000 UNIT Q8 05/04 1400 AC 05/10 (Porcine) SC 0617 Hydromorphone HCl 2 MG Q4P PRN 05/09 1015 AC 05/09 PO 1107 Ibuprofen 400 MG Q4P PRN 05/08 1845 DC 05/09 PO 0857 Insulin Aspart 0 TIDAC/HS 05/08 2100 AC 05/10 SC 0816 Insulin Detemir 11 UNITS BID 05/08 1000 AC 05/10 SC 1032 Lorazepam 0.25 MG ONCE PRN 05/09 0245 AC 05/09 IV 0310 Melatonin 3 MG ONCE ONE 05/10 0030 DC 05/10 PO 05/10 0031 0044 Metoprolol Succinate 25 MG DAILY 04/03 1714 AC 05/10 PO 1032 Omeprazole 40 MG DAILY AC 04/11 0700 AC 05/10 PO 0617 Oxycodone/ 2 TAB Q6P PRN 05/09 1830 DC Acetaminophen PO Oxycodone/ 2 TAB Q6P PRN 05/08 2330 DC 05/09 Acetaminophen PO 1554 Polyethylene Glycol 17 GM DAILY 04/21 0830 AC 05/10 PO 1033 Povidone Iodine 1 MEHRAN DAILY 04/13 1000 AC 05/10 TOP 1031 Senna 187 MG AT BEDTIME 04/25 2200 AC 05/09 PO 2157 Last 24 Hrs of Lab/[place] Results Last 24 Hrs of Labs/Mics: Laboratory Tests 05/10/17 0754: Anion Gap 9, Estimated GFR > 60, BUN/Creatinine Ratio 37.8 H, CBC w Diff NO MAN DIFF REQ, RBC 2.61 L, MCV 92.6, MCH 30.8, MCHC 33.3, RDW 17.9 H, MPV 8.9, Gran % 88.2 H, Lymphocytes % 6.5 L, Monocytes % 5.0, Eosinophils % 0, Basophils % 0.3, Absolute Granulocytes 7.4 H, Absolute Lymphocytes 0.5 L, Absolute Monocytes 0.4, Absolute Eosinophils 0, Absolute Basophils 0 05/10/17 0054: Urinalysis LIGHT H, Urine Color YEL, Urine Clarity CLEAR, Urine pH 6.0, Ur Specific [place] 1.020, Urine Protein TRACE H, Urine Ketones NEG, Urine Nitrite NEG, Urine Bilirubin NEG, Urine Urobilinogen 0.2, Ur Leukocyte Esterase TRACE H , Ur Microscopic SEDIMENT EXAMINED, Urine RBC 15-25 H, Urine WBC 5-10 H, Ur Epithelial Cells FEW, Urine Bacteria MANY H, Micro UA Comment [place]UD[place] YE[place] H, Urine Hemoglobin SMALL H, Urine Glucose 100 H Assessment/Plan Assessment: 71 -year-old gentleman with PMH type I diabetes (complicated by neuropathy, retinopathy and nephropathy), complete heart block status post pacemaker placement, severe PVD, 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 Was transferred to [facility] where he underwent TMA right foot by on 04/14/17. Patient had a angioplasty and stenting of his right distal superficial femoral artery, angioplasty of his right popliteal artery and mid right superficial femoral artery on 05/02/2007. Problem list: MRSA osteomyelitis Acute hypoxic respiratory failure- resolved Severe peripheral vascular disease Right leg gangrene s/p angioplasty and stent - POD 5 Type 1 diabetes Renal insufficiency Assessment and plan: * Patient had his right BKA done yesterday. He is on cefazolin day 2. Patient' s H&H is stable. Vital stable. We will continue all his home medication. Patient creatinine improved and hence we will resume his Lasix 40 twice a day. Patient is being followed by Dr. Adame who suggested to continue the current dose of insulin. Vascular surgery follow-up appreciated. Physical therapy follow-up tomorrow. * We will hold his Lasix 40 twice a day [held], metoprolol 25 daily, amlodipine 5 mg, aspirin 81, Lyrica 50 mg 3 times a day, Prilosec 40 and Levemir 11 units twice a day with a sliding scale. DVT prophylaxis-subcutaneous heparin Code-DNR/DNI Pain management-Dilaudid to 2 mg every 4 when necessary, Tylenol when necessary Surgery instructions - dressing change on POD#3 call hands [employer] on thursday to assess for plant wire chief / prosthetic fitting Problem List: 1. Below knee amputation status Pain Ratin Pain Location: none Pain Goal: Remain pain free Pain Plan: tylenol, dilaudid Tomorrow's Labs & Rationales: cbc,bep Alex Moreno MD 05/10/17 1411: Attending MD Review Statement Attending Statement Attending MD Statement: examined this patient, discuss w/resident/PA/MAT PUNCHER, agreed w/resident/PA/MAT PUNCHER, discussed with nursing Attending Assessment/Plan: The patient was seen and discussed with house staff. Patient went to OR for BKA 2 days ago. Currently stable in Gen Med floor. Renal function is back to normal. Initiated back on Lasix. Will hold lasix in the AM and re-evaluate. Needs prosthetic fitting.
[2017-05-10 07:41] VITALS: BP 158/66
[2017-05-10 08:50] LABS: ABSOLUTE BASOPHIL COUNT 0 /CUMM (0.0-0.2); ABSOLUTE EOSINOPHIL COUNT 0 /CUMM (0.0-0.7); ABSOLUTE GRANULOCYTE CT 7.4 /CUMM (1.4-6.5); ABSOLUTE LYMPH COUNT 0.5 /CUMM (1.2-3.4); ABSOLUTE MONOCYTE COUNT 0.4 /CUMM (0.10-0.60); BASOPHIL % 0.3 % (0.0-2.0); EOSINOPHIL % 0 % (0-5); GRANULOCYTE % 88.2 % (42.2-75.2); HEMATOCRIT 24.2 % (42-52); MEAN CORPUSCULAR HGB 30.8 PG (27.0-31.0); MEAN CORPUSCULAR HGB CONC 33.3 G/DL (33.0-37.0); MEAN CORPUSCULAR VOLUME 92.6 FL (80.0-94.0); MEAN PLATELET VOLUME 8.9 FL (7.4-10.4); PLATELET COUNT 299 /CUMM (130-400); RBC DISTRIBUTION WIDTH 17.9 % (11.5-14.5); RED BLOOD CELL CT 2.61 /CUMM (4.70-6.10); WHITE BLOOD CELL COUNT 8.4 /CUMM (4.8-10.8)
--- NOTE | 2017-05-10 09:38 | PN- Cardiology ---
Subjective Subjective: The patient is doing well today. He denies any significant symptoms but has a sense of mild dyspnea. Objective Vital Signs and I&Os Vital Signs Date Time Temp Pulse Resp B/P B/P Pulse O2 O2 Flow FiO2 Mean Ox Delivery Rate 05/10 0741 97.9 88 20 158/66 96 05/09 2223 98.6 87 20 127/59 96 Room Air 05/09 1452 98.6 81 20 118/60 97 Room Air 05/09 1106 74 128/62 05/09 1106 74 128/62 Intake & Output 05/10 1600 05/10 0800 05/10 0000 05/09 1600 05/09 0800 05/09 0000 Intake Total 480 600 840 240 390 Output Total 650 450 650 500 Balance -170 150 190 240 -110 Intake, IV 150 Intake, Oral 480 600 840 240 240 Output, Urine 650 450 650 500 Patient 139 lb 142 lb Weight Weight Bed scale Measurement Method Current Medications: Current Medications Sig/Coral Start time Last Medication Dose Route Stop Time Status Admin Acetaminophen 650 MG Q4P PRN 05/10 0815 AC 05/10 PO 0815 Acetaminophen 500 MG TID 04/03 1156 DC 05/08 PO 2138 Albuterol Sulfate 3 ML Q4P PRN 04/15 0800 AC 04/24 INH 1039 Amlodipine Besylate 5 MG DAILY 04/03 1200 AC 05/09 PO 1106 Aspirin 81 MG DAILY 04/04 1000 AC 05/09 PO 1105 Docusate Sodium 100 MG DAILY NEEDED PRN 04/26 1100 AC 04/26 PO 1204 Fluticasone 2 SPRAY DAILY 04/03 1155 AC 05/09 Propionate THOMAS 1102 Furosemide 40 MG 0730,1630 05/03 0730 DC 05/09 PO 0813 Heparin Sodium 5,000 UNIT Q8 05/04 1400 AC 05/10 (Porcine) SC 0617 Hydromorphone HCl 2 MG Q4P PRN 05/09 1015 AC 05/09 PO 1107 Ibuprofen 400 MG Q4P PRN 05/08 1845 DC 05/09 PO 0857 Insulin Aspart 0 TIDAC/HS 05/08 2100 AC 05/10 SC 0816 Insulin Detemir 11 UNITS BID 05/08 1000 AC 05/09 SC 2156 Lorazepam 0.25 MG ONCE PRN 05/09 0245 AC 05/09 IV 0310 Melatonin 3 MG ONCE ONE 05/10 0030 DC 05/10 PO 05/10 0031 0044 Metoprolol Succinate 25 MG DAILY 04/03 1714 AC 05/09 PO 1106 Omeprazole 40 MG DAILY AC 04/11 0700 AC 05/10 PO 0617 Oxycodone/ 2 TAB Q6P PRN 05/09 1830 DC Acetaminophen PO Oxycodone/ 2 TAB Q6P PRN 05/08 2330 DC 05/09 Acetaminophen PO 1554 Polyethylene Glycol 17 GM DAILY 04/21 0830 AC 05/09 PO 1105 Povidone Iodine 1 MEHRAN DAILY 04/13 1000 AC 05/09 TOP 1104 Senna 187 MG AT BEDTIME 04/25 2200 AC 05/09 PO 2157 Results Last 48 Hrs of Labs/Mics: Laboratory Tests 05/10/17 0754: Anion Gap 9, Estimated GFR > 60, BUN/Creatinine Ratio 37.8 H, CBC w Diff NO MAN DIFF REQ, RBC 2.61 L, MCV 92.6, MCH 30.8, MCHC 33.3, RDW 17.9 H, MPV 8.9, Gran % 88.2 H, Lymphocytes % 6.5 L, Monocytes % 5.0, Eosinophils % 0, Basophils % 0.3, Absolute Granulocytes 7.4 H, Absolute Lymphocytes 0.5 L, Absolute Monocytes 0.4, Absolute Eosinophils 0, Absolute Basophils 0 05/10/17 0054: Urinalysis LIGHT H, Urine Color YEL, Urine Clarity CLEAR, Urine pH 6.0, Ur Specific [place] 1.020, Urine Protein TRACE H, Urine Ketones NEG, Urine Nitrite NEG, Urine Bilirubin NEG, Urine Urobilinogen 0.2, Ur Leukocyte Esterase TRACE H , Ur Microscopic SEDIMENT EXAMINED, Urine RBC 15-25 H, Urine WBC 5-10 H, Ur Epithelial Cells FEW, Urine Bacteria MANY H, Micro UA Comment BUDDING YEAST H, Urine Hemoglobin SMALL H, Urine Glucose 100 H 05/09/17 0800: Anion Gap 8, Estimated GFR 55 L, BUN/Creatinine Ratio 26.9 H, CBC w Diff NO MAN DIFF REQ, RBC 2.73 L, MCV 92.3, MCH 30.8, MCHC 33.3, RDW 18.1 H, MPV 8.4, Gran % 70.7, Lymphocytes % 17.9 L, Monocytes % 8.9, Eosinophils % 1.7, Basophils % 0.8, Absolute Granulocytes 5.7, Absolute Lymphocytes 1.5, Absolute Monocytes 0.7 H, Absolute Eosinophils 0.1, Absolute Basophils 0.1 Assessment/Plan Assessment/Plan Assessment: 1. Acute hypoxic respiratory failure with acute on chronic HFrEF and slight worsening of dyspnea today 2. Severe PAD; s/p right transtibial amputation 3. Gangrene right LE 4. DM 5. Renal insufficiency. 6. Slightly worsening anemia 7. Elevated troponin Plan: * Continue Lasix * Continue other medications * Stable cardiac status post op Continue telemetry? Yes
--- NOTE | 2017-05-10 10:07 | PN- General Surgery ---
Subjective Subjective: patient doing well without complaints this morning. Tolarating POs well eating breakfast. Pain controlled on current regime. Objective Vital Signs and I&Os Vital Signs Date Time Temp Pulse Resp B/P B/P Pulse O2 O2 Flow FiO2 Mean Ox Delivery Rate 05/10 0741 97.9 88 20 158/66 96 05/09 2223 98.6 87 20 127/59 96 Room Air 05/09 1452 98.6 81 20 118/60 97 Room Air 05/09 1106 74 128/62 05/09 1106 74 128/62 Intake & Output 05/10 1600 05/10 0800 05/10 0000 05/09 1600 05/09 0800 05/09 0000 Intake Total 480 600 840 240 390 Output Total 650 450 650 500 Balance -170 150 190 240 -110 Intake, IV 150 Intake, Oral 480 600 840 240 240 Output, Urine 650 450 650 500 Patient 139 lb 142 lb Weight Weight Bed scale Measurement Method VVS afebrile left BKA -in immobilizer -adjusted bea wrap intact without drainage right lower extremity with heel ulcer, unchanged Assessment/Plan Assessment/Plan POD 2 BKA plan dressing change tomorrow contact [employer] for prosthetic options DVT proph Core Measures Venous Thromboembolism VTE Risk Factors Immobility No Mechanical VTE Prophylaxis d/t N/A MechProphylax Ordered No VTE Pharm Prophylaxis d/t NA PharmProphylax ordered
--- NOTE | 2017-05-10 13:52 | PN- Diabetes ---
Assessment/Plan Diabetes Assessment: The patient feels okay. His sugars became high this morning. I checked it appears he did get his 11 units of Levemir last night. However his sugar became high this morning at 360 for unclear liver lesions. Plan: Suggest continue the present insulin for now. If his sugar remains high we will need to seek an underlying cause such as increased infection. The patient has been receiving some dietary supplements and these would be another source of calories that could have driven his sugar up. Subjective Subjective: Feels okay Review of Systems Constitutional: Denies: chills, fever. Cardiovascular: Denies: chest pain. Respiratory: Reports: cough. Gastrointestinal: Denies: nausea, vomiting. Objective Last 24 Hrs of Vital Signs/I&O Vital Signs Date Time Temp Pulse Resp B/P B/P Pulse O2 O2 Flow FiO2 Mean Ox Delivery Rate 05/10 1032 84 160/52 05/10 1031 84 160/52 05/10 0741 97.9 88 20 158/66 96 05/09 2223 98.6 87 20 127/59 96 Room Air 05/09 1452 98.6 81 20 118/60 97 Room Air Intake & Output 05/10 1600 05/10 0800 05/10 0000 Intake Total 480 600 Output Total 150 650 450 Balance -150 -170 150 Intake, Oral 480 600 Output, Urine 150 650 450 Patient 139 lb Weight Vital Signs Date Time Temp Pulse Resp B/P B/P Pulse O2 O2 Flow FiO2 Mean Ox Delivery Rate 05/10 1032 84 160/52 05/10 1031 84 160/52 05/10 0741 97.9 88 20 158/66 96 05/09 2223 98.6 87 20 127/59 96 Room Air 05/09 1452 98.6 81 20 118/60 97 Room Air Intake & Output 05/10 1600 05/10 0800 05/10 0000 Intake Total 480 600 Output Total 150 650 450 Balance -150 -170 150 Intake, Oral 480 600 Output, Urine 150 650 450 Patient 139 lb Weight Physical Exam General Appearance: alert, awake, comfortable Head: normal appearance Neck: normal inspection Respiratory: normal breath sounds Cardiovascular: regular rate/rhythm Extremities: normal inspection (left foot bandaged; right BKA) Current Medications: Current Medications Sig/Coral Start time Last Medication Dose Route Stop Time Status Admin Acetaminophen 650 MG Q4P PRN 05/10 0815 AC 05/10 PO 0815 Albuterol Sulfate 3 ML Q4P PRN 04/15 0800 AC 04/24 INH 1039 Amlodipine Besylate 5 MG DAILY 04/03 1200 AC 05/10 PO 1031 Aspirin 81 MG DAILY 04/04 1000 AC 05/10 PO 1032 Docusate Sodium 100 MG DAILY NEEDED PRN 04/26 1100 AC 04/26 PO 1204 Fluticasone 2 SPRAY DAILY 04/03 1155 AC 05/10 Propionate THOMAS 1031 Furosemide 40 MG 0730,1630 05/10 1630 AC PO Heparin Sodium 5,000 UNIT Q8 05/04 1400 AC 05/10 (Porcine) SC 0617 Hydromorphone HCl 2 MG Q4P PRN 05/09 1015 AC 05/09 PO 1107 Insulin Aspart 0 TIDAC/HS 05/08 2100 AC 05/10 SC 1254 Insulin Detemir 11 UNITS BID 05/08 1000 AC 05/10 SC 1032 Lorazepam 0.25 MG ONCE PRN 05/09 0245 AC 05/09 IV 0310 Melatonin 3 MG ONCE ONE 05/10 0030 DC 05/10 PO 05/10 0031 0044 Metoprolol Succinate 25 MG DAILY 04/03 1714 AC 05/10 PO 1032 Omeprazole 40 MG DAILY AC 04/11 0700 AC 05/10 PO 0617 Oxycodone/ 2 TAB Q6P PRN 05/09 1830 DC Acetaminophen PO Oxycodone/ 2 TAB Q6P PRN 05/08 2330 DC 05/09 Acetaminophen PO 1554 Polyethylene Glycol 17 GM DAILY 04/21 0830 AC 05/10 PO 1033 Povidone Iodine 1 MEHRAN DAILY 04/13 1000 AC 05/10 TOP 1031 Senna 187 MG AT BEDTIME 04/25 2200 AC 05/09 PO 2157 Findings Pertinent Lab/Fr[place] Results: Laboratory Tests 05/10 05/10 1237 0754 Chemistry Sodium (137 - 145 mmol/L) 138 135 L Potassium (3.5 - 5.1 mmol/L) 4.8 4.5 Chloride (98 - 107 mmol/L) 97 L 100 Carbon Dioxide (22 - 30 mmol/L) 31 H 26 Anion Gap (5 - 16) 10 9 BUN (9 - 20 mg/dL) 38 H 34 H Creatinine (0.7 - 1.2 mg/dL) 1.1 0.9 Estimated GFR (>60 ml/min) > 60 > 60 BUN/Creatinine Ratio (7 - 25 %) 34.5 H 37.8 H Hematology CBC w Diff NO MAN DIFF REQ WBC (4.8 - 10.8 /CUMM) 8.4 RBC (4.70 - 6.10 /CUMM) 2.61 L Hgb (14.0 - 18.0 G/DL) 8.1 L Hct (42 - 52 %) 24.2 L MCV (80.0 - 94.0 FL) 92.6 MCH (27.0 - 31.0 PG) 30.8 MCHC (33.0 - 37.0 G/DL) 33.3 RDW (11.5 - 14.5 %) 17.9 H Plt Count (130 - 400 /CUMM) 299 MPV (7.4 - 10.4 FL) 8.9 Gran % (42.2 - 75.2 %) 88.2 H Lymphocytes % (20.5 - 51.1 %) 6.5 L Monocytes % (1.7 - 9.3 %) 5.0 Eosinophils % (0 - 5 %) 0 Basophils % (0.0 - 2.0 %) 0.3 Absolute Granulocytes (1.4 - 6.5 /CUMM) 7.4 H Absolute Lymphocytes (1.2 - 3.4 /CUMM) 0.5 L Absolute Monocytes (0.10 - 0.60 /CUMM) 0.4 Absolute Eosinophils (0.0 - 0.7 /CUMM) 0 Absolute Basophils (0.0 - 0.2 /CUMM) 0 05/10 0054 Urines Urinalysis LIGHT H Urine Color (YEL,AMB,STR) YEL Urine Clarity (CLEAR) CLEAR Urine pH (5.0 - 8.0) 6.0 Ur Specific [place] (1.001 - 1.035) 1.020 Urine Protein (NEG,<30 MG/DL) TRACE H Urine Ketones (NEG) NEG Urine Nitrite (NEG) NEG Urine Bilirubin (NEG) NEG Urine Urobilinogen (0.1 - 1.0 EU/dl) 0.2 Ur Leukocyte Esterase (NEG) TRACE H Ur Microscopic SEDIMENT EXAMINED Urine RBC (0 - 5 /HPF) 15-25 H Urine WBC (0 - 2 /HPF) 5-10 H Ur Epithelial Cells (NONE,FEW) FEW Urine Bacteria (NEG/NONE) MANY H Micro UA Comment BUDDING YEAST H Urine Hemoglobin (NEG) SMALL H Urine Glucose (N MG/DL) 100 H
[2017-05-10 14:01] VITALS: BP 131/44
[2017-05-10 20:48] VITALS: BP 133/67
[2017-05-11 05:51] VITALS: BP 150/70
--- NOTE | 2017-05-11 07:25 | PN- Housestaff ---
Kimberly LOZANO,Dalia 05/11/17 0725: Subjective Follow-up For: Left knee bka, diabetes, peripheral vascular disease Subjective: Patient seen and examined at bedside. No overnight events. He offers no complaints. He denies chest pain, shortness of breath, abdominal pain, cough, vomiting, pain in his surgical wound site. Review of Systems Constitutional: Reports: see HPI. Objective Last 24 Hrs of Vital Signs/I&O Vital Signs Date Time Temp Pulse Resp B/P B/P Pulse O2 O2 Flow FiO2 Mean Ox Delivery Rate 05/11 1405 97.9 81 20 146/77 97 Room Air 05/11 0832 87 135/49 05/11 0832 87 135/49 05/11 0551 98.6 74 18 150/70 98 Room Air 05/10 2048 98.8 95 18 133/67 97 Room Air Intake & Output 05/11 1600 05/11 0800 05/11 0000 Intake Total 480 480 Output Total 300 450 Balance 180 30 Intake, Oral 480 480 Number 2 Bowel Movements Output, Urine 300 450 Patient 140 lb Weight Weight Bed scale Measurement Method Physical Exam General Appearance: Alert, Oriented X3, Cooperative, No Acute Distress Cardiovascular: Regular Rate, Normal S1, Normal S2, No Murmurs Lungs: Clear to Auscultation Abdomen: Soft, No Tenderness, No Hepatospenomegaly Neurological: Normal Speech, Strength at 5/5 X4 Ext, Normal Tone, Sensation Intact Extremities: No Cyanosis, No Edema, Normal Pulses Current Medications: Current Medications Sig/Coral Start time Last Medication Dose Route Stop Time Status Admin Acetaminophen 650 MG Q4P PRN 05/10 0815 AC 05/11 PO 1254 Albuterol Sulfate 3 ML Q4P PRN 04/15 0800 AC 04/24 INH 1039 Amlodipine Besylate 5 MG DAILY 04/03 1200 AC 05/11 PO 0832 Aspirin 81 MG DAILY 04/04 1000 AC 05/11 PO 0832 Atorvastatin Calcium 40 MG 1700 05/11 1700 AC PO Docusate Sodium 100 MG DAILY NEEDED PRN 04/26 1100 AC 04/26 PO 1204 Fluticasone 2 SPRAY DAILY 04/03 1155 AC 05/10 Propionate THOMAS 1031 Furosemide 40 MG 0730,1630 05/11 1630 AC PO Furosemide 40 MG ONCE ONE 05/11 1500 DC 05/11 IV 05/11 1501 1504 Furosemide 40 MG 0730,1630 05/10 1630 DC 05/10 PO 05/11 0000 1704 Heparin Sodium 5,000 UNIT Q8 05/04 1400 AC 05/11 (Porcine) SC 1504 Hydromorphone HCl 2 MG Q4P PRN 05/09 1015 AC 05/10 PO 2133 Insulin Aspart 0 TIDAC/HS 05/08 2100 AC 05/11 SC 1234 Insulin Detemir 12 UNITS BID 05/11 1000 AC 05/11 SC 1234 Insulin Detemir 11 UNITS BID 05/08 1000 DC 05/11 SC 0826 Lorazepam 0.25 MG ONCE PRN 05/09 0245 AC 05/09 IV 0310 Losartan Potassium 25 MG DAILY 05/11 1445 AC PO Metoprolol Succinate 25 MG DAILY 04/03 1714 AC 05/11 PO 0832 Omeprazole 40 MG DAILY AC 04/11 0700 AC 05/11 PO 0515 Polyethylene Glycol 17 GM DAILY 04/21 0830 AC 05/11 PO 0826 Povidone Iodine 1 MEHRAN DAILY 04/13 1000 AC 05/10 TOP 1031 Senna 187 MG AT BEDTIME 04/25 2200 AC 05/10 PO 2133 Last 24 Hrs of Lab/[place] Results Last 24 Hrs of Labs/Mics: Laboratory Tests 05/11/17 0735: Anion Gap 11, Estimated GFR > 60, BUN/Creatinine Ratio 43.8 H, CBC w Diff NO MAN DIFF REQ, RBC 2.56 L, MCV 93.1, MCH 30.2, MCHC 32.5 L, RDW 17.5 H, MPV 9.0, Gran % 80.5 H, Lymphocytes % 12.7 L, Monocytes % 6.0, Eosinophils % 0.4, Basophils % 0.4, Absolute Granulocytes 7.0 H, Absolute Lymphocytes 1.1 L, Absolute Monocytes 0.5, Absolute Eosinophils 0, Absolute Basophils 0 Assessment/Plan Assessment: Assessment: 71 -year-old gentleman with PMH type I diabetes (complicated by neuropathy, retinopathy and nephropathy), complete heart block status post pacemaker placement, severe PVD, 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 Was transferred to [facility] where he underwent TMA right foot by on 04/14/17. Patient had a angioplasty and stenting of his right distal superficial femoral artery, angioplasty of his right popliteal artery and mid right superficial femoral artery on 05/02/2007. Problem list: MRSA osteomyelitis-resolved Acute hypoxic respiratory failure- resolved Severe peripheral vascular disease Right leg gangrene s/p angioplasty and stent - right BKA done. Type 1 diabetes Renal insufficiency Assessment and plan: * Patient had his right BKA done . He is off antibiotic. Patient's H&H is stable. Vital stable. We will continue all his home medication. Patient creatinine improved and hence we will resume his Lasix 40 twice a day. Patient is being followed by Dr. Adame who suggested to continue the current dose of insulin. Seen by vascular surgery who suggested to discharge him to short-term rehabilitation and follow with Dr. Lyles with the 2 weeks. Physical therapy follow-up tomorrow. * Lasix resumed., metoprolol 25 daily, amlodipine 5 mg, aspirin 81, Lyrica 50 mg 3 times a day, Prilosec 40 and Levemir 11 units twice a day with a sliding scale. DVT prophylaxis-subcutaneous heparin Code-DNR/DNI Pain management-Dilaudid to 2 mg every 4 when necessary, Tylenol when necessary Surgery will call car [employer] on today to assess for medical technician assistant / prosthetic fitting Problem List: 1. Below knee amputation status Pain Ratin Pain Location: none Pain Goal: Remain pain free Pain Plan: tylenol Tomorrow's Labs & Rationales: cbc,bep SaminaGeorge arndtkamille 05/11/17 1230: Attending MD Review Statement Attending Statement Attending MD Statement: examined this patient, discuss w/resident/PA/RARE/ENDANGERED SPECIES SPECIALIST, agreed w/resident/PA/RARE/ENDANGERED SPECIES SPECIALIST, discussed with family, reviewed EMR data (avail), discussed with nursing, discussed with case mgmt, reviewed images, amended to note Attending Assessment/Plan: The patient was seen and discussed with house staff. Patient went to OR for BKA 2 days ago. Currently stable in [facility] floor. Renal function is back to normal. Needs prosthetic fitting. Spoke to vascular surgery and needs follow up appointment in 2 weeks. Patient has bed available at rehab facility. Inform family about dc plans.
--- NOTE | 2017-05-11 08:41 | PN- Diabetes ---
Assessment/Plan Diabetes Assessment: 71 y/o male, Hx of DM type 1 diagnosed when he was 14 years old. He was on an insulin pump with basal rate running at 0.9 units per hour in the past. His diabetes was complicated by neuropathy, retinopathy, nephropathy. Patient presented to the ED after sustaining an unwitnessed fall. He was admitted for positive troponin with peak troponin of 6.64, ongoing right foot infection and gangrene of 2nd toe and 3rd toe. Right foot TMA was done on 2017. On 05/01/2017, angioplasty and stending were done to his right LE ( SFA and popliteal artery). 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 Currently he is on Levemir 11 units twice a day, Novolog coverage before meals and Novolog covarage at bedtime. His FSGs were 360, 400, 386, 318, 330 and 295. Plan: 1. increase Levemir to 12 units twice a day; 2. increase Novolog coverage before meals; detail see the inpatient DM order; 3. continue the current Novolog coverage at bedtime; 4. monitor FSGs. will follow Inpatient Diabetes Orders Before Each Meal: Bolus Insulin: Novolog < 80 mg/dl: no coverage 80-100 mg/dl: 8 units 101-120 mg/dl: 8 units 121-150 mg/dl: 8 units 151-200 mg/dl: 9 units 201-250 mg/dl: 10 units 251-300 mg/dl: 11 units 301-350 mg/dl: 12 units 351-400 mg/dl: 13 units > 400 mg/dl: 14 units Subjective Subjective: He has no special complaints. Objective Last 24 Hrs of Vital Signs/I&O Vital Signs Date Time Temp Pulse Resp B/P B/P Pulse O2 O2 Flow FiO2 Mean Ox Delivery Rate 05/11 0832 87 135/49 05/11 0832 87 135/49 05/11 0551 98.6 74 18 150/70 98 Room Air 05/10 2048 98.8 95 18 133/67 97 Room Air 05/10 1401 98.0 76 20 131/44 98 Room Air 05/10 1032 84 160/52 05/10 1031 84 160/52 Intake & Output 05/11 1600 05/11 0800 05/11 0000 Intake Total 480 480 Output Total 300 450 Balance 180 30 Intake, Oral 480 480 Number 2 Bowel Movements Output, Urine 300 450 Patient 140 lb Weight Weight Bed scale Measurement Method Findings Pertinent Lab/[place] Results: Laboratory Tests 05/11 05/10 0735 1237 Chemistry Sodium (137 - 145 mmol/L) Pending 138 Potassium (3.5 - 5.1 mmol/L) Pending 4.8 Chloride (98 - 107 mmol/L) Pending 97 L Carbon Dioxide (22 - 30 mmol/L) Pending 31 H Anion Gap (5 - 16) Pending 10 BUN (9 - 20 mg/dL) Pending 38 H Creatinine (0.7 - 1.2 mg/dL) Pending 1.1 Estimated GFR (>60 ml/min) > 60 BUN/Creatinine Ratio (7 - 25 %) Pending 34.5 H Hematology CBC w Diff Pending WBC Pending RBC Pending Hgb Pending Hct Pending MCV Pending MCH Pending MCHC Pending RDW Pending Plt Count Pending MPV Pending
--- NOTE | 2017-05-11 09:22 | PN- Cardiology ---
Subjective Subjective: The patient is awake and alert. He has no complaints today. He has no pain. He was seen by vascular who was happy with the status of his BKA wound. He is not short of breath Objective Vital Signs and I&Os .Vital Signs Date Time Temp Pulse Resp B/P B/P Pulse O2 O2 Flow FiO2 Mean Ox Delivery Rate 05/11 0832 87 135/49 05/11 0832 87 135/49 05/11 0551 98.6 74 18 150/70 98 Room Air 05/10 2048 98.8 95 18 133/67 97 Room Air 05/10 1401 98.0 76 20 131/44 98 Room Air 05/10 1032 84 160/52 05/10 1031 84 160/52 Intake & Output 05/11 1600 05/11 0800 05/11 0000 05/10 1600 05/10 0800 05/10 0000 Intake Total 480 480 960 480 600 Output Total 300 450 170 650 450 Balance 180 30 790 -170 150 Intake, Oral 480 480 960 480 600 Number 2 1 Bowel Movements Output, Urine 300 450 170 650 450 Patient 140 lb 139 lb Weight Weight Bed scale Measurement Method Physical Exam: He is in no distress HEENT exam is normal Chest is clear Heart reveals regular rhythm, soft heart sounds, soft systolic murmur at the base Extremities left foot is bandaged, right BKA site is bandaged. Current Medications: Current Medications Sig/Coral Start time Last Medication Dose Route Stop Time Status Admin Acetaminophen 650 MG Q4P PRN 05/10 0815 AC 05/10 PO 0815 Albuterol Sulfate 3 ML Q4P PRN 04/15 0800 AC 04/24 INH 1039 Amlodipine Besylate 5 MG DAILY 04/03 1200 AC 05/11 PO 0832 Aspirin 81 MG DAILY 04/04 1000 AC 05/11 PO 0832 Docusate Sodium 100 MG DAILY NEEDED PRN 04/26 1100 AC 04/26 PO 1204 Fluticasone 2 SPRAY DAILY 04/03 1155 AC 05/10 Propionate THOMAS 1031 Furosemide 40 MG 0730,1630 05/10 1630 DC 05/10 PO 05/11 0000 1704 Heparin Sodium 5,000 UNIT Q8 05/04 1400 AC 05/11 (Porcine) SC 0514 Hydromorphone HCl 2 MG Q4P PRN 05/09 1015 AC 05/10 PO 2133 Insulin Aspart 0 TIDAC/HS 05/08 2100 AC 05/11 SC 0825 Insulin Detemir 12 UNITS BID 05/11 1000 AC SC Insulin Detemir 11 UNITS BID 05/08 1000 DC 05/11 SC 0826 Lorazepam 0.25 MG ONCE PRN 05/09 0245 AC 05/09 IV 0310 Metoprolol Succinate 25 MG DAILY 04/03 1714 AC 05/11 PO 0832 Omeprazole 40 MG DAILY AC 04/11 0700 AC 05/11 PO 0515 Polyethylene Glycol 17 GM DAILY 04/21 0830 AC 05/11 PO 0826 Povidone Iodine 1 MEHRAN DAILY 04/13 1000 AC 05/10 TOP 1031 Senna 187 MG AT BEDTIME 04/25 2200 AC 05/10 PO 2133 Results Last 48 Hrs of Labs/Mics: Laboratory Tests 05/11/17 0735: Anion Gap 11, Estimated GFR > 60, BUN/Creatinine Ratio 43.8 H, CBC w Diff Pending, WBC Pending, RBC Pending, Hgb Pending, Hct Pending, MCV Pending, MCH Pending, MCHC Pending, RDW Pending, Plt Count Pending, MPV Pending 05/10/17 1237: Anion Gap 10, Estimated GFR > 60, BUN/Creatinine Ratio 34.5 H 05/10/17 0754: Anion Gap 9, Estimated GFR > 60, BUN/Creatinine Ratio 37.8 H, CBC w Diff NO MAN DIFF REQ, RBC 2.61 L, MCV 92.6, MCH 30.8, MCHC 33.3, RDW 17.9 H, MPV 8.9, Gran % 88.2 H, Lymphocytes % 6.5 L, Monocytes % 5.0, Eosinophils % 0, Basophils % 0.3, Absolute Granulocytes 7.4 H, Absolute Lymphocytes 0.5 L, Absolute Monocytes 0.4, Absolute Eosinophils 0, Absolute Basophils 0 05/10/17 0054: Urinalysis LIGHT H, Urine Color YEL, Urine Clarity CLEAR, Urine pH 6.0, Ur Specific [place] 1.020, Urine Protein TRACE H, Urine Ketones NEG, Urine Nitrite NEG, Urine Bilirubin NEG, Urine Urobilinogen 0.2, Ur Leukocyte Esterase TRACE H , Ur Microscopic SEDIMENT EXAMINED, Urine RBC 15-25 H, Urine WBC 5-10 H, Ur Epithelial Cells FEW, Urine Bacteria MANY H, Micro UA Comment [place] YEAST H, Urine Hemoglobin SMALL H, Urine Glucose 100 H Assessment/Plan Assessment/Plan The patient is stable. He is not in congestive heart failure clinically. He is awake and alert. His medical regimen looks good. Apparently his Lasix was held for a couple of days for slightly rising creatinine. This can be restarted as without diuretics he will go into congestive heart failure again. The patient is cleared from a cardiac standpoint for rehabilitation. Please call for further cardiology input. Continue telemetry? Not applicable
[2017-05-11 09:23] LABS: ABSOLUTE BASOPHIL COUNT 0 /CUMM (0.0-0.2); ABSOLUTE EOSINOPHIL COUNT 0 /CUMM (0.0-0.7); ABSOLUTE LYMPH COUNT 1.1 /CUMM (1.2-3.4); ABSOLUTE MONOCYTE COUNT 0.5 /CUMM (0.10-0.60); BASOPHIL % 0.4 % (0.0-2.0); EOSINOPHIL % 0.4 % (0-5); GRANULOCYTE % 80.5 % (42.2-75.2); HEMATOCRIT 23.9 % (42-52); MEAN CORPUSCULAR HGB 30.2 PG (27.0-31.0); MEAN CORPUSCULAR HGB CONC 32.5 G/DL (33.0-37.0); MEAN CORPUSCULAR VOLUME 93.1 FL (80.0-94.0); PLATELET COUNT 321 /CUMM (130-400); RBC DISTRIBUTION WIDTH 17.5 % (11.5-14.5); RED BLOOD CELL CT 2.56 /CUMM (4.70-6.10); WHITE BLOOD CELL COUNT 8.7 /CUMM (4.8-10.8)
--- NOTE | 2017-05-11 09:57 | PN- Vascular Surgery ---
Surgical Brief Attending Note Brief Attending Note: Postoperative 3 from right transtibial amputation. Pain is well-controlled Stump healing well with no evidence of ischemia or bleeding. We will contact [facility] for the stump to be placed in a makeup instructor and follow-up for prosthesis. Okay for rehabilitation from the vascular surgery standpoint. I will see see him as outpatient and plan for interventions with the left leg.
--- NOTE | 2017-05-11 10:06 | Discharge Summary ---
See Addendum Visit Information Visit Dates Admission Date: 04/03/17 Discharge Date: 05/14/17 Hospital Course Course Attending Physician: Jeff Hasa MD Primary Care Physician: Deja Boone MD Consulting Request: 1 Consulting Specialty: Critical Care Consulting Physician: Dr. Perez Reason for Consult: Acute hypoxemic respiratory failure Consulting Request: 2 Consulting Specialty: Endocrinology Consulting Physician: Dr. Adame Reason for Consult: Uncontrolled diabetes Consulting Request: 3 Consulting Specialty: Podiatry Consulting Physician: Dr. Moreno Reason for Consult: Right foot/toe gangrene and osteomyelitis Consulting Request: 4 Consulting Specialty: Thoracic/Vascular Surgery Consulting Physician: Dr. Venegas Reason for Consult: Peripheral vascular disease Consulting Request: 5 Consulting Specialty: Infectious Disease Consulting Physician: Dr. Maurer Reason for Consult: Right foot osteomyelitis Consulting Request: 6 Consulting Specialty: Cardiology Consulting Physician: Dr. 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 He was admitted after he was found on the floor of the custodial on the day of presentation with no recollection of the events. At the time of admission vital signs showed a temperature of 97.6 F, pulse rate 83, blood pressure 131/58, 93% on 4-6 L Physical Exam at day of presentation: General Appearance Alert, Oriented X3, Cooperative HEENT Atraumatic, PERRLA, dry mucous membranes Neck Supple, No JVD, No thryomegaly Cardiovascular Regular Rate, Normal S1, Normal S2 Lungs Clear to Auscultation, Normal Air Movement, bibasilar coarse breath sounds. Abdomen Normal Bowel Sounds, Soft, No Tenderness Extremities No Clubbing, right forearm-mechanical ecchymosis and swelling. Right knee with skin tear. Right foot with wound VAC on great toe. Necrotic second and third toes. Unstageable pressure ulcer noted on right upper buttocks which was present on admission. Laboratory data revealed a white blood cell count of 17,000, with 86 segs and 6 bands, BUN/creatinine 33 and 1.8, with normal liver enzymes, troponin 0.44, Vancomycin random level 17.3, INR 1.32. Urinalysis 1-3 RBCs/rare WBCs. CT of the head and cervical spine were negative for any acute process. CTA of the chest, abdomen and pelvis revealed moderate bilateral pleural effusions with extensive ground glass opacities in the lungs. X-rays of the right forearm, right wrist and right knee were negative for any fracture. X-ray of the right foot revealed no evidence of fracture or osteomyelitis. 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 His troponins peaked at 6.4 which was thought be likely due to type 2 VT. Since, he has a biventricular pacer for the treatment of complete heart block, so his EKG changes werent not very apparent to suggest NSTEMI. Echocardiogram revealed decreased ejection fraction and high RVSP around 60mm of Hg. He was continued on metoprolol and aspirin therapy. He was evaluated by Cardiology, who recommended IV lasix therapy which was started with IV lasix 40 mg Q 12 hrs. However, he required higher concentration of oxygen, and was transferred to the ICU for respiratory decompensation. The etiology in this case was multifactorial and thought to be a combination of vascular congestion/CHF and aspiration pneumonia or gram negative pneumonia. He was aggressively diuresed, and was started on IV ceftazidime and IV vancomycin. He had PARRIS secondary to hypoperfusion which resolved with carefull fluid management. He was already being treated with vancomycin based on random vancomycin levels, for MRSA osteomyelitis at admission. He had leukocytosis which trended down to normal. 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 He subsequently had right femoral artery angioplasty by Dr. Venegas on account of non healing TMA amputation site. He eventually needed a right BKA with Dr. Theo LOZANO,[facility] which was done on 05/08/17. Post Right BKA surgery he made a good recovery and his stump was placed in a house calls nurse practitioner. He was discharged to short term rehab to be followed up for prosthesis placement there. While on admission he was assessed by offbearer and found to be in protein energy malnutrition. He was found to be 135 lbs after his BKA and his BMI was 19.3 and he was at 81% of his ideal body weight. He was started on nutritional supplements with glucerna and double protein portions with meals with improvement in his appetite and nutritional status. Allergies: Coded Allergies: NO KNOWN ALLERGIES (NONE 04/08/17) Significant Procedures: Operative/Inv Procedure Report Surgery Date: 04/14/17 Name of Procedure: 1 TMA right foot 2 intraoperative administration of ankle block anesthesia Pre-Operative Diagnosis: 1 gangrene right foot 2 severe peripheral arterial disease Post-Operative Diagnosis: The same Estimated Blood Loss: less than 50ml Surgeon/Human Resource Intern: CARIDAD MORENO DPM Anesthesia: moderate sedation, block Operative/Inv Procedure Report Surgery Date: 05/01/17 Name of Procedure: - Ultrasound-guided left common femoral artery access - Aortogram - Second order right leg angiogram - Left leg angiogram in a retrograde fashion through the sheath in the left common femoral artery - Atherectomy of the distal right SFA - Angioplasty and stenting of distal right SFA - Angioplasty of right popliteal artery - Angioplasty of mid right SFA Pre-Operative Diagnosis: Nonhealing right transmetatarsal amputation site Post-Operative Diagnosis: Same Estimated Blood Loss: scant Surgeon/Human Resource Intern: KATHLEEN VENEGAS MD Anesthesia: moderate sedation Operative/Inv Procedure Report Surgery Date: 05/08/17 Name of Procedure: Right transtibial amputation Pre-Operative Diagnosis: Nonhealing infected right TMA Post-Operative Diagnosis: Same Estimated Blood Loss: 300ML Surgeon/Human Resource Intern: KATHLEEN VENEGAS MD Anesthesia: general endotracheal tube Disposition Summary Disposition Principal Diagnosis: 1. Severe peripheral vascular disease s/p stent placement on antiplatelet therapy 2. Gangrene of right foot/toes 3. Acute hypoxic respiratory failure 4. Aspiration penumonitis and gram negative pneumonia 5. 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 NSTEMI tpe 2 7. Diabetes Mellitus uncontrolled and complicated with angiopathy and neuropathy 8. Hypertension uncontrolled 9. CHF and pulmoanary edema 10. General physical deconditioning 11. Sacral ulcers/Unstageable pressure ulcer noted on right upper buttocks which was present on admission 12. Acute kidney injury on background chronic kidney disease. 13. Protein-energy malnutrition Additional Diagnosis: None Discharge Disposition: SNF Discharge Instructions General Discharge Information Code Status: Do Not Resucitate/Intubat Patient's Diet: Diabetic and heart healthy diet Patient's Activity: Self limited activity; Full weight bearing on left foot Follow-Up Instructions/Appts: 1. Please follow-up with your primary care provider within 3-5 days of discharge. 2. Please follow-up with the vascular surgeon Dr. Smart within 1-2 weeks of discharge. 3. Follow up with your residential treatment staff, Dr. Avery within 1 week of discharge 4. Please follow up with Dr. Adame, shipping track supervisor within 1 week of discharge. 5. Please follow up with engine buildup mechanic Dr. Moreno within 1-2 weeks of discharge Medications at Discharge Discharge Medications: Stop taking the following medications: Vancomycin HCl (Vancomycin HCl) 1 GRAM VIAL.PORT INTRAVEN TWICE DAILY Qty = 42 Continue taking these medications: Aspirin (Children's Aspirin) 81 MG TAB.CHEW 1 Tablet ORAL DAILY Pregabalin (Lyrica) 50 MG CAPSULE 1 Capsule ORAL THREE TIMES DAILY Comments: NOT GIVEN Metoprolol Succ XL (Toprol XL) 25 MG TAB 1 Tablet ORAL DAILY Comments: Last Taken: 03/30/17 Time: 1000AM Losartan (Cozaar) 100 MG TABLET 25 Milligram ORAL DAILY Qty = 30 Comments: Last Taken: 03/30/17 Time: 1000AM Fluticasone Furoate (Flonase Sensimist) 27.5 MCG/ACTUATION SPRAY.SUSP 2 Puff NASAL DAILY Comments: NOT GIVEN Insulin Aspart (Novolog) 100 UNIT/ML VIAL 0 Inject into fatty tissue TAKE AT BEDTIME Qty = 30 Instructions: LESS THAN GLUCOSE 250, GIVE NO INSULIN 251-300 GIVE 2 UNITS 301-350 GIVE 3 UNITS 351-400 GIVE 4 UNITS Comments: Last Taken: 03/30/17 Time: 1200 Acetaminophen (Tylenol Extra Strength) 500 MG TABLET 1 Tablet ORAL THREE TIMES DAILY Qty = 10 Comments: NOT GIVEN Insulin Aspart (Novolog) 100 UNIT/ML VIAL 0 Inject into fatty tissue 3 TIMES DAILY BEFORE MEALS Qty = 90 Instructions: GLUCOSE LESS THAN 80 GIVE NO INSULIN GLUCOSE 80-150 GIVE 3 UNITS 151-200 GIVE 5 UNITS 201-250 GIVE 6 UNITS 251-300 GIVE 7 UNITS 301-350 GIVE 8 UNITS 351-400 GIVE 9 UNITS greater than 400 give 9 units and CALL MD Comments: Last Taken: 03/30/17 Time: 1200 Atorvastatin Calcium (Lipitor) 40 MG TABLET 1 Tablet ORAL DAILY Qty = 30 Comments: Last Taken: 03/29/17 Time: 500PM Start taking the following new medications: Furosemide (Lasix) 40 MG TABLET 40 Milligram ORAL DAILY Qty = 30 No Refills The following medications have been changed: Old: Amlodipine Besylate (Amlodipine Besylate) 10 MG TABLET 1 Tablet ORAL DAILY Qty = 30 New: Amlodipine Besylate (Amlodipine Besylate) 10 MG TABLET 5 Milligram ORAL DAILY Qty = 30 Comments: Last Taken: 03/30/17 Time: 1000AM Old: Insulin Detemir (Levemir) 100 UNIT/ML VIAL 10 Units Inject into fatty tissue TWICE DAILY Qty = 60 New: Insulin Detemir (Levemir) 100 UNIT/ML VIAL 12 Units Inject into fatty tissue TWICE DAILY Qty = 60 Comments: Last Taken: 03/29/17 Time: 900PM Copies To: Chris LOZANO,Solis Moran; Caridad Moreno DPM; Deja Boone MD; Deep LOZANO,Estuardo Gómez; Erasto LOZANO,Raymundo Alexandra; Bennie LOZANO,Lazaro Rodriguez; Theo LOZANO,[facility]
[2017-05-11 14:05] VITALS: BP 146/77
[2017-05-11] MEDS ORDERED: LASIX40 M1 PO (14:36)
[2017-05-11] MEDS ORDERED: AMLODIPINE BESY10 M1 PO (14:36)
--- NOTE | 2017-05-11 14:47 | Patient Discharge Instructions ---
Discharge Instructions General Discharge Information You were seen/treated for: Osteomyelitis, right BKA Watch for these problems: In case of chest pain, chest pressure, nausea, vomiting, pain please go to the nearest emergency room Special Instructions: 1. Please follow-up with your primary care provider within 1-2 weeks of discharge. 2. Please follow-up with the vascular surgeon Dr. Smart within 1-2 weeks of discharge. 3. Follow up with your corporate safety coordinator, Dr. Avery within 1 week of discharge 4. Please follow up with Dr. Adame, audio video mechanic within 1 week of discharge. 5. Please follow up with on site manager Dr. Moreno within 1 week of discharge. Diet Continue normal diet: No Recommended Diet: Diabetic, Heart Healthy Activity Full Activity/No Limits: No Activity Self Limited: Yes (Full weight bearing left leg) Acute Coronary Syndrome Inclusion Criteria At DC or during hospital stay patient has or had the following: ACS DIAGNOSIS Yes Discharge Core Measures Meds if any: Prescribed or Continued at Discharge JOHNNIE/ARB if EF <40% Yes Aspirin Yes Beta-Antonia Yes Statin Yes Meds if any: NOT Prescribed or Continued at Discharge Congestive Heart Failure Inclusion Criteria At DC or during hospital stay patient has or had the following: CHF DIAGNOSIS Yes Discharge Core Measures Meds if any: Prescribed or Continued at Discharge JOHNNIE/ARB for EF <40% Yes Meds if any: NOT Prescribed or Continued at Discharge Cerebrovascular accident Inclusion Criteria At DC or during hospital stay patient has or had the following: CVA/TIA Diagnosis No Discharge Core Measures Meds if any: Prescribed or Continued at Discharge Meds if any: NOT Prescribed or Continued at Discharge Venous thromboembolism Inclusion Criteria VTE Diagnosis No VTE Type NONE VTE Confirmed by (Test) NONE Discharge Core Measures - Per Current guidelines, there needs to be overlap - treatment for the first 5 days of Warfarin therapy. - If discharged on Warfarin prior to 5 days of - overlap therapy, the patient will need to be - assessed for post discharge needs including - *Post discharge parental anticoagulation - *Warfarin and/or parental anticoagulation education - *Follow up date to check INR post discharge At least 5 days overlap therapy as Inpatient No Meds if any: Prescribed or Continued at Discharge Note: Overlap Therapy is Warfarin and Anticoagulant Meds if any: NOT Prescribed or Continued at Discharge
--- NOTE | 2017-05-11 20:03 | RADIOLOGY REPORT ---
EXAMINATION: XR PORTABLE CHEST CLINICAL INFORMATION: Atelectasis. Shortness of breath. COMPARISON: 04/27/2017 TECHNIQUE: Portable frontal view of the chest was obtained. FINDINGS: A dual-lead right-sided pacemaker is in unchanged position. The cardiomediastinal silhouette is stable. Since the prior study there appears to be slightly improved aeration in the left base and a decrease in the blunting of the left costophrenic angle. No new airspace opacities are visualized. No pneumothorax. There are degenerative changes of the spine and shoulders without acute osseous abnormality evident. IMPRESSION: Improved aeration in the left base relative to 04/27/2017. Decreased size of a trace left pleural effusion.
[2017-05-11 21:48] VITALS: BP 181/80
[2017-05-12 07:15] VITALS: BP 181/76
--- NOTE | 2017-05-12 07:21 | PN- Housestaff ---
Kimberly LOZANO,Dalia 05/12/17 0721: Subjective Follow-up For: right BKA Complaints: no complaints Subjective: Patient seen and examined at bedside. No overnight events. No complaints. He denies any pain in this right knee. Patient denies chest pain, chest pressure, shortness of breath, fever, cough. Review of Systems Constitutional: Reports: see HPI. Objective Last 24 Hrs of Vital Signs/I&O Vital Signs Date Time Temp Pulse Resp B/P B/P Pulse O2 O2 Flow FiO2 Mean Ox Delivery Rate 05/12 0901 80 181/76 05/12 0901 80 181/76 05/12 0715 98.1 80 20 181/76 96 Room Air 05/12 0559 80 181/05/12 0000 Room Air 05/11 2148 97.5 99 20 181 97 Room Air 05/11 1834 86 136/75 05/11 1405 97.9 81 20 146/77 97 Room Air Intake & Output 05/12 1600 05/12 0800 05/12 0000 Intake Total 240 480 Output Total 650 500 Balance -410 -20 Intake, Oral 240 480 Number 0 Bowel Movements Output, Urine 650 500 Patient 135 lb Weight Weight Bed scale Measurement Method Physical Exam General Appearance: Alert, Oriented X3, Cooperative, No Acute Distress Cardiovascular: Regular Rate, Normal S1, Normal S2, No Murmurs Lungs: Clear to Auscultation, Normal Air Movement Abdomen: Normal Bowel Sounds, Soft, No Tenderness, No Hepatospenomegaly Neurological: Normal Gait, Normal Speech, Strength at 5/5 X4 Ext, Normal Tone Extremities: No Cyanosis, No Edema, Normal Pulses Current Medications: Current Medications Sig/Coral Start time Last Medication Dose Route Stop Time Status Admin Acetaminophen 325 MG .STK-MED ONE 05/11 1252 DC PO 05/11 1253 Acetaminophen 650 MG Q4P PRN 05/10 0815 AC 05/11 PO 1254 Albuterol Sulfate 3 ML Q4P PRN 04/15 0800 AC 04/24 INH 1039 Amlodipine Besylate 5 MG DAILY 04/03 1200 AC 05/12 PO 0559 Aspirin 81 MG DAILY 04/04 1000 AC 05/12 PO 0901 Atorvastatin Calcium 40 MG 1700 05/11 1700 AC 05/11 PO 1834 Docusate Sodium 100 MG DAILY NEEDED PRN 04/26 1100 AC 03/04 PO 1204 Fluticasone 2 SPRAY DAILY 04/03 1155 AC 05/12 Propionate THOMAS 0901 Furosemide 40 MG 0730,1630 05/11 1630 AC 05/12 PO 0559 Furosemide 40 MG ONCE ONE 05/11 1500 DC 05/11 IV 05/11 1501 1504 Heparin Sodium 5,000 UNIT Q8 05/04 1400 AC 05/12 (Porcine) SC 0559 Hydromorphone HCl 2 MG Q4P PRN 05/09 1015 DC 05/10 PO 2133 Insulin Aspart 0 TIDAC/HS 05/08 2100 AC 05/12 SC 0832 Insulin Detemir 12 UNITS BID 05/11 1000 AC 05/12 SC 0901 Lorazepam 0.25 MG ONCE PRN 05/09 0245 DC 05/11 IV 2126 Losartan Potassium 25 MG DAILY 05/11 1445 AC 05/12 PO 0901 Metoprolol Succinate 25 MG DAILY 04/03 1714 AC 05/12 PO 0901 Omeprazole 40 MG DAILY AC 04/11 0700 AC 05/12 PO 0559 Polyethylene Glycol 17 GM DAILY 04/21 0830 AC 05/12 PO 0902 Povidone Iodine 1 MEHRAN DAILY 04/13 1000 AC 05/12 TOP 0903 Senna 187 MG AT BEDTIME 04/25 2200 AC 05/11 PO 2126 Last 24 Hrs of Lab/Fransisco Results Last 24 Hrs of Labs/Mics: Laboratory Tests 05/12/17 0800: CBC w Diff NO MAN DIFF REQ, RBC 2.75 L, MCV 92.5, MCH 31.0, MCHC 33.6, RDW 17.7 H, MPV 8.4, Gran % 65.0, Lymphocytes % 23.0, Monocytes % 7.7, Eosinophils % 3.5 , Basophils % 0.8, Absolute Granulocytes 4.8, Absolute Lymphocytes 1.7, Absolute Monocytes 0.6, Absolute Eosinophils 0.3, Absolute Basophils 0.1 Assessment/Plan Assessment: 71 -year-old gentleman with PMH type I diabetes (complicated by neuropathy, retinopathy and nephropathy), complete heart block status post pacemaker placement, severe PVD, 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 Was transferred to [facility] where he underwent TMA right foot by on 04/14/17. Patient had a angioplasty and stenting of his right distal superficial femoral artery, angioplasty of his right popliteal artery and mid right superficial femoral artery on 05/02/2007. Problem list: MRSA osteomyelitis-resolved Acute hypoxic respiratory failure- resolved Severe peripheral vascular disease Right leg gangrene s/p angioplasty and stent - right BKA done. Type 1 diabetes Renal insufficiency Assessment and plan: * Patient had his right BKA done . He is off antibiotic. Patient's H&H is stable. Vital stable. We will continue all his home medication. Patient creatinine improved and his Lasix was resumed. Patient will be seen by physical therapy. Patient will be discharged to short-term rehabilitation today. And hence we will resume his Lasix 40 twice a day. Patient is being followed by Dr. Adame who suggested to continue the current dose of insulin. Seen by vascular surgery who suggested to discharge him to short-term rehabilitation and follow with Dr. Lyles with the 2 weeks. * Lasix resumed., metoprolol 25 daily, amlodipine 5 mg, aspirin 81, Lyrica 50 mg 3 times a day, Prilosec 40 and Levemir 12 units twice a day with a sliding scale. * Patient was evaluated by estefani who gave him give temporary prosthesis for his left amputated leg. DVT prophylaxis-subcutaneous heparin Code-DNR/DNI Pain management-Dilaudid to 2 mg every 4 when necessary, Tylenol when necessary Problem List: 1. Below knee amputation status Pain Ratin Pain Location: none Pain Goal: Remain pain free Pain Plan: tylenol Tomorrow's Labs & Rationales: none SaminaJeff arndt 05/12/17 1203: Attending MD Review Statement Attending Statement Attending MD Statement: examined this patient, discuss w/resident/PA/MOTOR AND CONTROLS TESTER, agreed w/resident/PA/MOTOR AND CONTROLS TESTER, discussed with family, reviewed EMR data (avail), discussed with nursing, discussed with case mgmt, reviewed images, amended to note Attending Assessment/Plan: Patient seen/examined bedside. 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 Cardiology consulted and recommend conservative management for now. Aspirin, b nanda, statin, ARB, Diuretics at discharge. Patient has prosthesis at right leg. Patient left foot has chronic non healing ulcer and podiatry alongwith vascualr surgery recommend outpatient follow up in [address] Ulises Hinton. Patient DM is controlled with his PCP Dr Adame who is informed and closely following with inpatient treatment. Needs to f/u PCP in few days of discharge. Inform family Son is POA. DISCHARGE DIAGNOSIS 1. Severe peripheral vascular disease s/p stent placement on antiplatelet therapy. 2. Gangrene of right foot 3. Acute hypoxic respiratory failure 4. Aspiration penumonitis 5. Osteomyelitis s/p amputation. 6. NSTEMI tpe 2 7. Diabetes Mellitus uncontrolled and complicated with angipathy and neuropathy 8. Hypertension uncontrolled 9. Pulmoanary edema resolved 10. General physical deconditioning 11. Sacral ulcers 12. Chronic kidney disease. [facility] Pulmonary/critical care Endocrinology/PCP Dr Adame Podiatry Dr Bean Vascular surgery Dr Ulises Hinton Cardiology Dr Avery Infectious disease Dr Maurer. FOLLOW UP PCP in 3-5 days Vascular surgery in 2 weeks Podiatry in 1-2 weeks Cardiology in 2-4 weeks Total time spent>37 min...
[2017-05-12 08:41] LABS: ABSOLUTE BASOPHIL COUNT 0.1 /CUMM (0.0-0.2); ABSOLUTE EOSINOPHIL COUNT 0.3 /CUMM (0.0-0.7); ABSOLUTE GRANULOCYTE CT 4.8 /CUMM (1.4-6.5); ABSOLUTE LYMPH COUNT 1.7 /CUMM (1.2-3.4); ABSOLUTE MONOCYTE COUNT 0.6 /CUMM (0.10-0.60); BASOPHIL % 0.8 % (0.0-2.0); EOSINOPHIL % 3.5 % (0-5); HEMATOCRIT 25.4 % (42-52); MEAN CORPUSCULAR HGB CONC 33.6 G/DL (33.0-37.0); MEAN CORPUSCULAR VOLUME 92.5 FL (80.0-94.0); MEAN PLATELET VOLUME 8.4 FL (7.4-10.4); PLATELET COUNT 380 /CUMM (130-400); RBC DISTRIBUTION WIDTH 17.7 % (11.5-14.5); RED BLOOD CELL CT 2.75 /CUMM (4.70-6.10); WHITE BLOOD CELL COUNT 7.4 /CUMM (4.8-10.8)
[2017-05-12] MEDS ORDERED: LEVEMIR100 UNIT/1 SC (09:13)
--- NOTE | 2017-05-12 13:07 | PN- Diabetes ---
Assessment/Plan Diabetes Assessment: 71 y/o male, Hx of DM type 1 diagnosed when he was 14 years old. He was on an insulin pump with basal rate running at 0.9 units per hour in the past. His diabetes was complicated by neuropathy, retinopathy, nephropathy. Patient presented to the ED after sustaining an unwitnessed fall. He was admitted for positive troponin with peak troponin of 6.64, ongoing right foot infection and gangrene of 2nd toe and 3rd toe. Right foot TMA was done on 2017. On 05/01/2017, angioplasty and stending were done to his right LE ( SFA and popliteal artery). 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 Currently he is on Levemir 12 units twice a day, Novolog coverage before meals and Novolog covarage at bedtime. His FSGs were 360,147, 255, 91 and 145. As per team, patient most likely will be discharged to rehab today. Plan: continue the current insulin regimen for now; the discharge plan for DM will be the same insulin regimen as inpatient; monitor FSGs x 4 times a day; f/u in office with Dr. Adame after discharge. Subjective Subjective: He feels okay this morning. Objective Last 24 Hrs of Vital Signs/I&O Vital Signs Date Time Temp Pulse Resp B/P B/P Pulse O2 O2 Flow FiO2 Mean Ox Delivery Rate 05/12 0901 80 181/76 05/12 0901 80 181/76 05/12 0715 98.1 80 20 181/76 96 Room Air 05/12 0559 80 181/76 05/12 0000 Room Air 05/11 2148 97.5 99 20 181/80 97 Room Air 05/11 1834 86 136/75 05/11 1405 97.9 81 20 146/77 97 Room Air Intake & Output 05/12 1600 05/12 0800 05/12 0000 Intake Total 240 480 Output Total 650 500 Balance -410 -20 Intake, Oral 240 480 Number 0 Bowel Movements Output, Urine 650 500 Patient 135 lb Weight Weight Bed scale Measurement Method Findings Pertinent Lab/Fransisco Results: Laboratory Tests 05/12 0800 Hematology CBC w Diff NO MAN DIFF REQ WBC (4.8 - 10.8 /CUMM) 7.4 RBC (4.70 - 6.10 /CUMM) 2.75 L Hgb (14.0 - 18.0 G/DL) 8.5 L Hct (42 - 52 %) 25.4 L MCV (80.0 - 94.0 FL) 92.5 MCH (27.0 - 31.0 PG) 31.0 MCHC (33.0 - 37.0 G/DL) 33.6 RDW (11.5 - 14.5 %) 17.7 H Plt Count (130 - 400 /CUMM) 380 MPV (7.4 - 10.4 FL) 8.4 Gran % (42.2 - 75.2 %) 65.0 Lymphocytes % (20.5 - 51.1 %) 23.0 Monocytes % (1.7 - 9.3 %) 7.7 Eosinophils % (0 - 5 %) 3.5 Basophils % (0.0 - 2.0 %) 0.8 Absolute Granulocytes (1.4 - 6.5 /CUMM) 4.8 Absolute Lymphocytes (1.2 - 3.4 /CUMM) 1.7 Absolute Monocytes (0.10 - 0.60 /CUMM) 0.6 Absolute Eosinophils (0.0 - 0.7 /CUMM) 0.3 Absolute Basophils (0.0 - 0.2 /CUMM) 0.1
[2017-05-12 14:32] VITALS: BP 181/76
[2017-05-12 22:58] VITALS: BP 120/60
[2017-05-13 06:39] VITALS: BP 168/72
--- NOTE | 2017-05-13 07:42 | PN- Housestaff ---
Kimberly LOZANO,Dalia 05/13/17 0741: Subjective Follow-up For: Right BKA Complaints: no complaints Subjective: Patient seen and examined at bedside. No overnight events. No complaints. Patient denies chest pain, chest pressure, nausea, vomiting, shortness of breath. Review of Systems Constitutional: Reports: see HPI. Objective Last 24 Hrs of Vital Signs/I&O Vital Signs Date Time Temp Pulse Resp B/P B/P Pulse O2 O2 Flow FiO2 Mean Ox Delivery Rate 05/13 0639 98.0 92 20 168/72 94 Room Air 05/12 2258 98.8 94 20 120/60 95 Room Air 05/12 1600 Room Air 05/12 1441 Nasal 50% Cannula 05/12 1432 97.7 89 20 181/76 97 Room Air Intake & Output 05/13 1600 05/13 0800 05/13 0000 Intake Total 480 750 Output Total 350 900 Balance 130 -150 Intake, Oral 480 750 Number 1 3 Bowel Movements Output, Urine 350 900 Patient 135 lb Weight Weight Bed scale Measurement Method Physical Exam General Appearance: Alert, Cooperative, No Acute Distress Skin: No Rashes, No Breakdown Neck: Supple, No JVD Cardiovascular: Regular Rate, Normal S1, Normal S2, No Murmurs Lungs: Clear to Auscultation Abdomen: Soft, No Tenderness, No Hepatospenomegaly Neurological: Strength at 5/5 X4 Ext, Normal Tone, Sensation Intact Extremities: No Edema, Normal Pulses Vascular: Normal Pulses Current Medications: Current Medications Sig/Coral Start time Last Medication Dose Route Stop Time Status Admin Acetaminophen 650 MG Q4P PRN 05/10 0815 AC 05/11 PO 1254 Albuterol Sulfate 3 ML Q4P PRN 04/15 0800 AC 04/24 INH 1039 Amlodipine Besylate 5 MG DAILY 04/03 1200 AC 05/12 PO 0559 Aspirin 81 MG DAILY 04/04 1000 AC 05/12 PO 0901 Atorvastatin Calcium 40 MG 1700 05/11 1700 AC 05/12 PO 1702 Docusate Sodium 100 MG DAILY NEEDED PRN 04/26 1100 AC 04/26 PO 1204 Fluticasone 2 SPRAY DAILY 04/03 1155 AC 05/12 Propionate THOMAS 0901 Furosemide 40 MG 0730,1630 05/11 1630 AC 05/13 PO 0610 Heparin Sodium 5,000 UNIT Q8 05/04 1400 AC 05/13 (Porcine) SC 0610 Insulin Aspart 0 TIDAC/HS 05/08 2100 AC 05/13 SC 0810 Insulin Detemir 12 UNITS BID 05/11 1000 AC 05/12 SC 2143 Losartan Potassium 25 MG DAILY 05/11 1445 AC 05/12 PO 0901 Metoprolol Succinate 25 MG DAILY 04/03 1714 AC 05/12 PO 0901 Omeprazole 40 MG DAILY AC 04/11 0700 AC 05/13 PO 0610 Polyethylene Glycol 17 GM DAILY 04/21 0830 AC 05/12 PO 0902 Povidone Iodine 1 MEHRAN DAILY 04/13 1000 AC 05/12 TOP 0903 Senna 187 MG AT BEDTIME 04/25 2200 AC 05/12 PO 2144 Assessment/Plan Assessment: 71 -year-old gentleman with PMH type I diabetes (complicated by neuropathy, retinopathy and nephropathy), complete heart block status post pacemaker placement, severe PVD, 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 Was transferred to [facility] where he underwent TMA right foot by on 04/14/17. Patient had a angioplasty and stenting of his right distal superficial femoral artery, angioplasty of his right popliteal artery and mid right superficial femoral artery on 05/02/2007. Problem list: MRSA osteomyelitis-resolved Acute hypoxic respiratory failure- resolved Severe peripheral vascular disease Right leg gangrene s/p angioplasty and stent - right BKA done. Type 1 diabetes Renal insufficiency Assessment and plan: * Patient had his right BKA done . He is off antibiotic. Patient's H&H is stable. Vital stable. We will continue all his home medication. Patient is planned for discharge to [place] today. Patient is being followed by Dr. Adame who suggested to continue the current dose of insulin. Seen by vascular surgery who suggested to discharge him to short-term rehabilitation and follow with Dr. Ulises arroyo within 2 weeks. * Patient was evaluated by nutritional Department who suggested he meets the criteria for mild protein calorie malnutrition. We will continue current management consistent carbohydrate diet with nutritional supplements and encourage by mouth intake. * Lasix resumed., metoprolol 25 daily, amlodipine 5 mg, aspirin 81, Lyrica 50 mg 3 times a day, Prilosec 40 and Levemir 12 units twice a day with a sliding scale. * Patient was evaluated by estefani who gave him temporary prosthesis for his right amputated leg. DVT prophylaxis-subcutaneous heparin Code-DNR/DNI Pain management-Dilaudid to 2 mg every 4 when necessary, Tylenol when necessary Problem List: 1. Below knee amputation status Pain Ratin Pain Location: none Pain Goal: Remain pain free Pain Plan: tylenol Tomorrow's Labs & Rationales: none Jeff Haas 05/13/17 1104: Attending MD Review Statement Attending Statement Attending MD Statement: examined this patient, discuss w/resident/PA/SPONGE CLIPPER, agreed w/resident/PA/SPONGE CLIPPER, discussed with family, reviewed EMR data (avail), discussed with nursing, discussed with case mgmt, reviewed images, amended to note Attending Assessment/Plan: Patient denies any new complaints. Vitals stable. Plan to dishcarge to [facility]. Update son. f/u case management. Podiatry and PT follow recs at discharge.
[2017-05-13 10:27] VITALS: BP 142/62
[2017-05-13 14:26] VITALS: BP 144/60
--- NOTE | 2017-05-13 15:39 | PN- Diabetes ---
Assessment/Plan Diabetes Assessment: 71 y/o male, Hx of DM type 1 diagnosed when he was 14 years old. He was on an insulin pump with basal rate running at 0.9 units per hour in the past. His diabetes was complicated by neuropathy, retinopathy, nephropathy. Patient presented to the ED after sustaining an unwitnessed fall. He was admitted for positive troponin with peak troponin of 6.64, ongoing right foot infection and gangrene of 2nd toe and 3rd toe. Right foot TMA was done on 2017. On 05/01/2017, angioplasty and stending were done to his right LE ( SFA and popliteal artery). 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 Currently he is on Levemir 12 units twice a day, Novolog coverage before meals (FSG 80-150, 8 units; FSH 151-200, 9 units, etc) and Novolog covarage at bedtime. His FSGs were 91, 145, 385, 331, 251 and 252. Plan: continue the current insulin regimen for now; diet control; monitor FSGs. will follow. Subjective Subjective: Patient appears depressed. Objective Last 24 Hrs of Vital Signs/I&O Vital Signs Date Time Temp Pulse Resp B/P B/P Pulse O2 O2 Flow FiO2 Mean Ox Delivery Rate 05/13 1426 98.2 70 20 144/60 97 Room Air 05/13 1027 97.7 75 20 142/62 96 Room Air 05/13 1017 80 142/62 05/13 1017 80 142/62 05/13 0639 98.0 92 20 168/72 94 Room Air 05/12 2258 98.8 94 20 120/60 95 Room Air 05/12 1600 Room Air Intake & Output 05/13 1600 05/13 0800 05/13 0000 Intake Total 480 750 Output Total 850 350 900 Balance -850 130 -150 Intake, Oral 480 750 Number 3 1 3 Bowel Movements Output, Urine 850 350 900 Patient 135 lb Weight Weight Bed scale Measurement Method
[2017-05-13 22:07] VITALS: BP 138/60
--- NOTE | 2017-05-14 06:57 | PN- Housestaff ---
Kimberly LOZANO,Dalia 05/14/17 0657: Subjective Follow-up For: Right BKA Subjective: Patient seen and examined at bedside. He was sitting in his bed comfortably. No overnight events. He denies chest pain, chest pressure, nausea, vomiting, right leg pain. Review of Systems Constitutional: Reports: see HPI. Objective Last 24 Hrs of Vital Signs/I&O Vital Signs Date Time Temp Pulse Resp B/P B/P Pulse O2 O2 Flow FiO2 Mean Ox Delivery Rate 05/14 1307 98.2 74 20 132/80 05/14 1149 74 132/80 05/14 1148 98.2 74 132/80 05/14 1148 74 132/80 05/14 0717 98.2 76 20 142/60 96 05/14 0000 Room Air 05/13 2207 98.1 86 18 138/60 97 Room Air Intake & Output 05/14 1600 05/14 0800 05/14 0000 Intake Total 240 240 Output Total 300 Balance 240 -60 Intake, Oral 240 240 Output, Urine 300 Patient 138 lb Weight Weight Bed scale Measurement Method Physical Exam General Appearance: Alert, Oriented X3, Cooperative, No Acute Distress Skin: No Rashes, No Breakdown Cardiovascular: Normal S1, Normal S2, No Murmurs Lungs: Normal Air Movement Abdomen: Soft, No Tenderness, No Hepatospenomegaly Neurological: Strength at 5/5 X4 Ext, Normal Tone, Sensation Intact, Cranial Nerves 3-12 NL Extremities: rt bka Current Medications: Current Medications Sig/Coral Start time Last Medication Dose Route Stop Time Status Admin Acetaminophen 650 MG Q4P PRN 05/10 0815 DCD 05/11 PO 1254 Albuterol Sulfate 3 ML Q4P PRN 04/15 0800 DCD 04/24 INH 1039 Alprazolam 0.5 MG ONCE ONE 05/13 2044 DC 05/13 PO 05/13 204 2115 Amlodipine Besylate 5 MG DAILY 04/03 1200 DCD 05/14 PO 1148 Aspirin 81 MG DAILY 04/04 1000 DCD 05/14 PO 1149 Atorvastatin Calcium 40 MG 1700 05/11 1700 DCD 05/13 PO 1642 Docusate Sodium 100 MG DAILY NEEDED PRN 04/26 1100 DCD 04/26 PO 1204 Fluticasone 2 SPRAY DAILY 04/03 1155 DCD 05/14 Propionate THOMAS 1147 Furosemide 40 MG .STK-MED ONE 05/14 0829 DC PO 05/14 0830 Furosemide 40 MG .STK-MED ONE 05/14 0828 DC IV 05/14 0829 Furosemide 40 MG 0730,1630 05/11 1630 DCD 05/14 PO 0831 Heparin Sodium 5,000 UNIT Q8 05/04 1400 DCD 05/14 (Porcine) SC 0514 Insulin Aspart 0 TIDAC/HS 05/08 2100 DCD 05/14 SC 1250 Insulin Detemir 12 UNITS BID 05/11 1000 DCD 05/14 SC 1147 Losartan Potassium 25 MG DAILY 05/11 1445 DCD 05/14 PO 1149 Metoprolol Succinate 25 MG DAILY 04/03 1714 DCD 05/14 PO 1148 Omeprazole 40 MG DAILY AC 04/11 0700 DCD 05/14 PO 0514 Polyethylene Glycol 17 GM DAILY 04/21 0830 DCD 05/14 PO 1149 Povidone Iodine 1 MEHRAN DAILY 04/13 1000 DCD 05/14 TOP 1149 Senna 187 MG AT BEDTIME 04/25 2200 DCD 05/13 PO 2115 Assessment/Plan Assessment: 71 -year-old gentleman with PMH type I diabetes (complicated by neuropathy, retinopathy and nephropathy), complete heart block status post pacemaker placement, severe PVD, 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 Was transferred to [facility] where he underwent TMA right foot by on 04/14/17. Patient had a angioplasty and stenting of his right distal superficial femoral artery, angioplasty of his right popliteal artery and mid right superficial femoral artery on 05/02/2007. Problem list: MRSA osteomyelitis-resolved Acute hypoxic respiratory failure- resolved Severe peripheral vascular disease Right leg gangrene s/p angioplasty and stent - right BKA done. Type 1 diabetes Renal insufficiency Assessment and plan: * Patient had his right BKA done . He is off antibiotic. Patient's H&H is stable. Vital stable. We will continue all his home medication. Patient is planned for discharge to [place] today. Patient is being followed by Dr. Adame who suggested to continue the current dose of insulin. Seen by vascular surgery who suggested to discharge him to short-term rehabilitation and follow with Dr. Ulises arroyo within 2 weeks. * Patient was evaluated by nutritional Department who suggested he meets the criteria for mild protein calorie malnutrition. We will continue current management consistent carbohydrate diet with nutritional supplements and encourage by mouth intake. * Lasix resumed., metoprolol 25 daily, amlodipine 5 mg, aspirin 81, Lyrica 50 mg 3 times a day, Prilosec 40 and Levemir 12 units twice a day with a sliding scale. * Patient was evaluated by estefani who gave him temporary prosthesis for his right amputated leg. * She does plan to discharge to [place] today. DVT prophylaxis-subcutaneous heparin Code-DNR/DNI Pain management-Dilaudid to 2 mg every 4 when necessary, Tylenol when necessary Problem List: 1. Below knee amputation status Pain Ratin Pain Location: none Pain Goal: Remain pain free Pain Plan: tylenol Tomorrow's Labs & Rationales: none Consulting Request: Consulting Specialty: Cardiology Consulting Physician: Dr. Avery Reason for Consult: CHF and pulmonary edema Jeff Haas 05/14/17 1257: Attending MD Review Statement Attending Statement Attending MD Statement: examined this patient, discuss w/resident/PA/BEVEL MILL OPERATOR, agreed w/resident/PA/BEVEL MILL OPERATOR, discussed with family, reviewed EMR data (avail), discussed with nursing, discussed with case mgmt, reviewed images, amended to note Attending Assessment/Plan: Patient medically stable for discharge.
[2017-05-14 07:17] VITALS: BP 142/60
--- NOTE | 2017-05-14 12:49 | PN- Diabetes ---
Assessment/Plan Diabetes Assessment: 71 y/o male, Hx of DM type 1 diagnosed when he was 14 years old. He was on an insulin pump with basal rate running at 0.9 units per hour in the past. His diabetes was complicated by neuropathy, retinopathy, nephropathy. Patient presented to the ED after sustaining an unwitnessed fall. He was admitted for positive troponin with peak troponin of 6.64, ongoing right foot infection and gangrene of 2nd toe and 3rd toe. Right foot TMA was done on 2017. On 05/01/2017, angioplasty and stending were done to his right LE ( SFA and popliteal artery). 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 Currently he is on Levemir 12 units twice a day, Novolog coverage before meals (FSG 80-150, 8 units; FSH 151-200, 9 units, etc) and Novolog covarage at bedtime. His FSGs were 252, 349, 371, 240 and 253. Plan: continue the current insulin regimen for now; diet control; monitor FSGs. will follow. Subjective Subjective: He feels okay. Objective Last 24 Hrs of Vital Signs/I&O Vital Signs Date Time Temp Pulse Resp B/P B/P Pulse O2 O2 Flow FiO2 Mean Ox Delivery Rate 05/14 1149 74 132/80 05/14 1148 98.2 74 132/80 05/14 1148 74 132/80 05/14 0717 98.2 76 20 142/60 96 05/14 0000 Room Air 05/13 2207 98.1 86 18 138/60 97 Room Air 05/13 1426 98.2 70 20 144/60 97 Room Air Intake & Output 05/14 1600 05/14 0800 05/14 0000 Intake Total 240 240 Output Total 300 Balance 240 -60 Intake, Oral 240 240 Output, Urine 300 Patient 138 lb Weight Weight Bed scale Measurement Method
[2017-05-14 13:07] VITALS: BP 132/80
== END 2017-05-14 13:20 | DRG 853 ==
LOC: DELPENDDIS → ERH 06:33 → ERHI 09:45 → 2NB 09:45 → CRI 09:45 → 1NO 09:45 → ENRESERV 11:38 → ENTRNSPT 12:42 → EDTRNSPTSTS 13:06 → EDTRNSPT 13:06 → 1NO 13:12 → CMPTRNSPT 13:25 → CRI 04-04 14:52 → ENTRNSPT 04-11 12:22 → EDTRNSPTSTS 04-11 12:25 → EDTRNSPT 04-11 12:25 → CMPTRNSPT 04-11 12:50 → 2NB 04-11 12:57 → ENRESERV 04-14 18:39 → CRI 04-14 18:45 → 2NB 04-14 19:21 → 2NA 04-24 17:43 → 2NB 04-24 19:01 → CRI 04-28 07:25 → 1NO 04-28 18:45 → ENTRNSPT 05-01 17:29 → EDTRNSPT 05-01 17:41 → EDTRNSPTSTS 05-01 17:41 → CMPTRNSPT 05-01 17:54 → ENTRNSPT 05-04 20:38 → 1NO 05-04 20:58 → EDTRNSPTSTS 05-04 21:07 → EDTRNSPT 05-04 21:07 → 2NB 05-04 21:14 → CMPTRNSPT 05-04 21:21 → 2NB 05-05 07:50 → ENTRNSPT 05-08 17:20 → EDTRNSPTSTS 05-08 17:46 → EDTRNSPT 05-08 17:46 → CMPTRNSPT 05-08 18:02 → ENPENDDIS 05-13 09:27 → 2NB 05-14 13:20
PROVIDERS: Dermatology; Internal Medicine; Internal Medicine Adolescent Medicine; Internal Medicine Endocrinology, Diabetes & Metabolism; Internal Medicine Hematology & Oncology; Internal Medicine Infectious Disease; Pediatrics; Radiology Vascular & Interventional Radiology; Student in an Organized Health Care Education/Training Program
PROC: 0Y6M0Z9 Detachment at Right Foot, Partial 1st Ray, Open Approach (ICD-10-PCS; principal; 2017-04-14)
PROC: 0Y6M0ZB Detachment at Right Foot, Partial 2nd Ray, Open Approach (ICD-10-PCS; 2017-04-14)
PROC: 0Y6M0ZC Detachment at Right Foot, Partial 3rd Ray, Open Approach (ICD-10-PCS; 2017-04-14)
PROC: 0Y6M0ZD Detachment at Right Foot, Partial 4th Ray, Open Approach (ICD-10-PCS; 2017-04-14)
PROC: 0Y6M0ZF Detachment at Right Foot, Partial 5th Ray, Open Approach (ICD-10-PCS; 2017-04-14)
PROC: 047L3DZ Dilation of Left Femoral Artery with Intraluminal Device, Percutaneous Approach (ICD-10-PCS; 2017-05-01)
PROC: 0Y6H0Z2 Detachment at Right Lower Leg, Mid, Open Approach (ICD-10-PCS; 2017-05-08)
DX: A41.9 Sepsis, unspecified organism (principal); N17.0 Acute kidney failure with tubular necrosis; I21.A1 Myocardial infarction type 2; J96.01 Acute respiratory failure with hypoxia; J69.0 Pneumonitis due to inhalation of food and vomit; L89.310 Pressure ulcer of right buttock, unstageable; I50.23 Acute on chronic systolic (congestive) heart failure; I96 Gangrene, not elsewhere classified; I13.0 Hypertensive heart and chronic kidney disease with heart failure and stage 1 through stage 4 chronic kidney disease, or unspecified chronic kidney disease; E10.52 Type 1 diabetes mellitus with diabetic peripheral angiopathy with gangrene; M86.671 Other chronic osteomyelitis, right ankle and foot; E44.1 Mild protein-calorie malnutrition; Z68.1 Body mass index [BMI] 19.9 or less, adult; M86.9 Osteomyelitis, unspecified; N18.3 Chronic kidney disease, stage 3 (moderate); B95.62 Methicillin resistant Staphylococcus aureus infection as the cause of diseases classified elsewhere; E87.5 Hyperkalemia; E87.70 Fluid overload, unspecified; E10.22 Type 1 diabetes mellitus with diabetic chronic kidney disease; E10.65 Type 1 diabetes mellitus with hyperglycemia; E10.319 Type 1 diabetes mellitus with unspecified diabetic retinopathy without macular edema; Z95.0 Presence of cardiac pacemaker; W18.30XA Fall on same level, unspecified, initial encounter; Y93.9 Activity, unspecified; Y92.129 Unspecified place in nursing home as the place of occurrence of the external cause
CPT/HCPCS: 1NP; 2NBP; 86160; 87184; CCU; 36415; 36592; 71045; 73090-RT; 73110-RT; 73552; 73562-RT; 73630-RT; 73660-RT; 74176; 76775; 81001; 82436; 84165; 86920; 87070; 87086; 87088; 87147; 87804; 87804-59; 88307; 93005; 93010; 93306; 93925; 93970; 94799; 97110-GO; 97161-GP; 97164-GP; 97530-GO; 99233; C1724; C1725; C1760; C9399; J0690; J0713; J1644; J1650; J1815; J1940; J2001; J2060; J2270; J3370; J3490; J7042; J7060; P9016; Q9967